=== PATIENT | female | born 1935 | race Caucasian/White ===

== ENCOUNTER 2024-08-18 10:49 | Inpatient (IN) ==
[2024-08-18 11:35] LABS: Basophils # (auto) 0.02 K/uL (0.00-0.20); Basophils % (auto) 0.3 %; Eosinophils # (auto) 0.08 K/uL (0.00-0.50); Eosinophils % (auto) 1.3 %; Hematocrit (blood only) 34.7 % (37.0-47.0); Hemoglobin 10.8 g/dl (12.0-16.0); Immature Granulocytes # (auto) 0.01 K/uL (0.01-0.20); Immature Granulocytes % (auto) 0.2 %; Lymphocytes # (auto) 1.24 K/uL (1.20-3.40); Lymphocytes % (auto) 20.8 %; Mean Corpuscular Hemoglobin 29.7 pg (25.0-34.0); Mean Corpuscular Hgb Conc 31.1 g/dL (32.0-36.0); Mean Corpuscular Volume 95.3 fL (80.0-100.0); Monocytes # (auto) 0.69 K/uL (0.11-0.59); Monocytes % (auto) 11.6 %; Neutrophils # (auto) 3.93 K/uL (1.40-6.50); Neutrophils % (auto) 65.8 %; Platelet Count 127 K/uL (130-400); RDW Coefficient of Variation 14.8 % (11.5-14.5); RDW Standard Deviation 51.9 fL (36.4-46.3); Red Blood Count 3.64 M/uL (4.20-5.40); White Blood Count 5.97 K/ul (4.8-10.8)
[2024-08-18 11:53] LABS: Anion Gap 2 (3-11); BUN Creatinine Ratio 35.9 (10-20); Blood Urea Nitrogen 28 mg/dl (6-23); Calcium 9.5 mg/dl (8.6-10.3); Carbon Dioxide 30 mmol/L (21-32); Chloride 109 mmol/L (98-107); Glucose 79 mg/dl (70-99(Fasting)); Potassium 4.7 mmol/L (3.5-5.1); Sodium 141 mmol/L (136-145)
--- NOTE | 2024-08-18 12:21 | Emergency Department Note ---
Impression & Plan Acute confusion, Anemia, Acute UTI, Pneumonia, Acute dehydration, Rhinovirus infection ED Provider Note NAME: JAIME SCHAFER AGE: 88 SEX: F : 1935 ARRIVES VIA: Walk-In INFORMANT: [Patient][family] ED PROVIDER(S): [Oren London MD] CHIEF COMPLAINT: Weakness HISTORY OF PRESENT ILLNESS: The patient is an 88-year-old female who was on hospice up until yesterday. She revoked hospice yesterday. The patient has had a week of increased confusion and weakness. Today, she could not stand on her own. There has been no fever, she has not had a fall. No cough or congestion. No abdominal pain. No one-sided weakness. The family states that at times, she has presented with similar symptoms when she has had a UTI. PMHx/PSHx/Social Hx: See Below PHYSICAL EXAM: GENERAL: Patient is in no acute distress. HEENT: No acute trauma, normocephalic atraumatic, mucous membranes somewhat dry, no nasal congestion. NECK: No stridor, no adenopathy, no meningismus, trachea is midline. LUNGS: No wheezing or respiratory distress, breath sounds are diminished bilaterally, especially on the left. HEART: Regular rate and rhythm, no obvious murmur. ABDOMEN: Soft, nontender, no peritonitis. EXTREMITIES: No cyanosis, full range of motion of all the joints without pain or difficulty. Mild bilateral pedal edema. NEUROLOGIC: Awake and alert, no acute motor or sensory deficits, no focal weakness. Strong hand grasp, equal leg raise. No speech slur. SKIN: No jaundice, no diaphoresis. DIFFERENTIAL DIAGNOSIS: UTI, TIA, stroke, anemia, electrolyte imbalance, intracranial bleeding, among others. EMERGENCY DEPARTMENT PROCEDURES: MEDICAL DECISION MAKING: There is no leukocytosis. The patient is anemic with a lower platelet count, the anemia and thrombocytopenia are chronic. INR is elevated at 4.2, above the therapeutic window. There is no renal failure or significant electrolyte abnormality. No concerning liver enzyme elevation. ECG shows a ventricular pacemaker, no obvious ischemia. Cardiac enzyme testing x 1 was not consistent with acute cardiac injury. Ammonia level was not elevated. Urinalysis shows 4+ bacteria consistent with infection. Respiratory bio fire was positive for rhinovirus. Chest x-ray shows a left lower lung pneumonia. Brain CT did not show any acute bleed or mass effect. On exam, the patient appeared somewhat dehydrated. There was no speech slur. No focal motor deficit. The patient received IV saline for hydration. She was given IV ceftriaxone for the UTI as well as the findings of pneumonia. Patient is weak, confused, dehydrated. She has a UTI as well as pneumonia. She is rhinovirus positive. Given her age and all her findings, hospitalization is indicated. I spoke with the patient and case consultant. I spoke with her family. The on- call hospitalist was consulted. Prior/Outside records/notes reviewed: None ECG per my interpretation: Indication was weakness. The ECG shows a ventricular pacemaker with a rate of 74. There is no acute ST elevation, no PVCs. The QTc is 463. Continuous Cardiac Monitoring per my interpretation: An order was placed for continuous cardiac monitoring. The monitor shows a rate of 72 with ventricular pacing. Imaging/x-ray results per my interpretation: Chest x-ray shows what appears to be left lower lung pneumonia. Chronic Medical/Social conditions affecting care: Advanced age. Care/Management discussed with: Case management, the on-call hospitalist. 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 Pulmonary HTN (Chronic) Pulmonary HTN (PASP 49mmhg) Anemia (Chronic) chronic; baseline hgb 11's Encounter for pre-operative examination Tachy-nikki syndrome (Acute 06/23/13) Medical History 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 Afib chronic; on warfarin Family History Sister Family history of cancer Grandmother Family history of leukemia Social History Smoking Status: Never smoker Do You Dip or Chew Tobacco: No; Hx Alcohol Use: No Hx Substance Use: No Preferred Language: Indonesian Communication Ability: Effective Wrinkle Chaser Required: No Beliefs That Will Affect Care: None Current Living Situation: Spouse Feels Safe at Home: Yes Assistive Devices: Glasses and Walker Allergies Allergies Allergy/AdvReac Type Severity Reaction Status Date / Time No Known Allergies Allergy Verified 03/11/19 05:34 Home Meds Home Medications Medication Instructions Recorded Confirmed atorvastatin 20 mg tablet 20 mg PO PM 02/03/19 12/26/23 cyanocobalamin (vitamin B-12) 500 500 mcg PO QAM 02/03/19 12/26/23 mcg tablet (Vitamin B-12) ferrous sulfate 325 mg (65 mg 325 mg PO BID 02/03/19 12/26/23 iron) tablet metoprolol succinate 25 mg 25 mg PO QAM 02/03/19 12/26/23 tablet,extended release 24 hr omeprazole 20 mg tablet,delayed 20 mg PO QAM 02/03/19 12/26/23 release spironolactone 25 mg tablet 12.5 mg PO QAM 02/03/19 12/26/23 warfarin 5 mg tablet 2.5 mg PO [id number] 02/03/19 12/26/23 warfarin 5 mg tablet 5 mg PO WK 02/03/19 12/26/23 calcium 500 mg (as 1 tab PO DAILY 03/11/19 12/26/23 carbonate)-vitamin D3 10 mcg (400 unit) tablet (Calcium 500 + D) [id number]-ecqrp acid 0.4 1 tab PO DAILY 03/11/19 12/26/23 mg-lycopene 300 mcg-lutein 250 mcg tablet (Centrum Silver) ropinirole 1 mg tablet 1 mg PO DAILY 12/26/23 12/26/23 sertraline 50 mg tablet 50 mg PO DAILY 12/26/23 12/26/23 Previous Rx's Medication Instructions Recorded oxycodone 5 mg tablet 5 mg PO Q4H PRN pain #30 tabs 03/17/19 Results & Data (ED) Vital Signs Vital Signs - 24 hr 08/18/24 10:50 08/18/24 11:38 Temperature 36.6 C Temperature Source Temporal Artery Scan Pulse Rate 66 64 Respiratory Rate 18 Blood Pressure 143/84 H Blood Pressure Mean 103 Pulse Oximetry 98 Sepsis Recent Fever Within 48 Hours No Sepsis New/Unexplained Change in Mental Status N/A Sepsis Action Taken by Nursing No Action Required Home Medications Current Medication List: was personally reviewed by me Laboratory Data Attestation: I reviewed the patient's lab results. 08/18/24 11:15 08/18/24 11:15 Lab Results 08/18/24 08/18/24 08/18/24 Range/Units 11:15 11:56 12:33 WBC 5.97 (4.8-10.8) K/ul RBC 3.64 L (4.20-5.40) M/uL Hgb 10.8 L (12.0-16.0) g/dl Hct 34.7 L (37.0-47.0) % MCV 95.3 (80.0-100.0) fL MCH 29.7 (25.0-34.0) pg MCHC 31.1 L (32.0-36.0) g/dL RDW Std Deviation 51.9 H (36.4-46.3) fL RDW Coeff of Gladis 14.8 H (11.5-14.5) % Plt Count 127 L (130-400) K/uL MPV 12.0 (9.4-12.4) fL Immature Gran % (Auto) 0.2 % Neut % (Auto) 65.8 % Lymph % (Auto) 20.8 % [place] % (Auto) 11.6 % Eos % (Auto) 1.3 % Baso % (Auto) 0.3 % Neut # (Auto) 3.93 (1.40-6.50) K/uL Lymph # (Auto) 1.24 (1.20-3.40) K/uL [place] # (Auto) 0.69 H (0.11-0.59) K/uL Eos # (Auto) 0.08 (0.00-0.50) K/uL Baso # (Auto) 0.02 (0.00-0.20) K/uL Immature Gran # (Auto) 0.01 (0.01-0.20) K/uL PT 39.8 H (9.0-12.0) Seconds INR 4.2 H (0.9-1.1) APTT 48 H (21-31) Seconds PTT Ratio 1.8 Sodium 141 (136-145) mmol/L Potassium 4.7 (3.5-5.1) mmol/L Chloride 109 H (98-107) mmol/L Carbon Dioxide 30 (21-32) mmol/L Anion Gap 2 L (3-11) BUN 28 H (6-23) mg/dl Creatinine 0.78 (0.6-1.2) mg/dl Est Cr Clr Drug Dosing Not Reportable eGFR 73.47 BUN/Creatinine Ratio 35.9 H (10-20) Glucose 79 (70-99(Fasting)) mg/dl Calcium 9.5 (8.6-10.3) mg/dl Magnesium 2.2 (1.7-2.4) mg/dl Total Bilirubin 0.4 (0.2-1.0) mg/dl Direct Bilirubin 0.1 (0-0.2) mg/dl AST 27 (13-39) U/L ALT 20 (7-52) U/L Alkaline Phosphatase 78 (34-104) U/L Ammonia 27.0 (18-72) umol/L Troponin I High Sens 10.3 (0-14) pg/ml Total Protein 6.9 (6.0-8.3) gm/dl Albumin 4.1 (3.4-5.0) gm/dl Urine Color Yellow Urine Appearance Clear (Clear) Urine pH 5.5 (4.5-7.5) Ur Specific [place] 1.022 (1.000-1.030) Urine Protein Negative (Negative) Urine Glucose (UA) Negative (Negative) Urine Ketones Negative (Negative) Urine Blood Trace H (Negative) Urine Nitrite Negative (Negative) Urine Bilirubin Negative (Negative) Urine Urobilinogen Negative (Negative) Ur Leukocyte Esterase Negative (Negative) Urine WBC (Auto) 0-5 (0-5) /hpf Urine RBC (Auto) 3-5 H (0-2) /hpf U Hyaline Cast (Auto) 0-2 (0-2) /lpf U Epithel Cells (Auto) 0-2 (0-2) /hpf Urine Bacteria (Auto) 4+ H (None Seen) Adenovirus (PCR) (NotDetected) B. pertussis DNA (PCR) (NotDetected) B.parapertussis DNA PCR (NotDetected) C. pneumoniae DNA (PCR) (NotDetected) Coronavirus OC43 (PCR) (NotDetected) Coronavirus HKU1 (PCR) (NotDetected) Coronavirus 229E (PCR) (NotDetected) SARS-CoV-2 (PCR) (NotDetected) Coronavirus NL63 (PCR) (NotDetected) Human Metapneumovir PCR (NotDetected) Influenza Type A (PCR) (NotDetected) Influenza Type B (PCR) (NotDetected) M. pneumoniae (PCR) (NotDetected) Parainfluenza 1 (PCR) (NotDetected) Parainfluenza 2 (PCR) (NotDetected) Parainfluenza 3 (PCR) (NotDetected) Parainfluenza 4 (PCR) (NotDetected) RSV (PCR) (NotDetected) Entero/Rhino (PCR) (NotDetected) 08/18/24 Range/Units 12:35 WBC (4.8-10.8) K/ul RBC (4.20-5.40) M/uL Hgb (12.0-16.0) g/dl Hct (37.0-47.0) % MCV (80.0-100.0) fL MCH (25.0-34.0) pg MCHC (32.0-36.0) g/dL RDW Std Deviation (36.4-46.3) fL RDW Coeff of Gladis (11.5-14.5) % Plt Count (130-400) K/uL MPV (9.4-12.4) fL Immature Gran % (Auto) % Neut % (Auto) % Lymph % (Auto) % [place] % (Auto) % Eos % (Auto) % Baso % (Auto) % Neut # (Auto) (1.40-6.50) K/uL Lymph # (Auto) (1.20-3.40) K/uL [place] # (Auto) (0.11-0.59) K/uL Eos # (Auto) (0.00-0.50) K/uL Baso # (Auto) (0.00-0.20) K/uL Immature Gran # (Auto) (0.01-0.20) K/uL PT (9.0-12.0) Seconds INR (0.9-1.1) APTT (21-31) Seconds PTT Ratio Sodium (136-145) mmol/L Potassium (3.5-5.1) mmol/L Chloride (98-107) mmol/L Carbon Dioxide (21-32) mmol/L Anion Gap (3-11) BUN (6-23) mg/dl Creatinine (0.6-1.2) mg/dl Est Cr Clr Drug Dosing eGFR BUN/Creatinine Ratio (10-20) Glucose (70-99(Fasting)) mg/dl Calcium (8.6-10.3) mg/dl Magnesium (1.7-2.4) mg/dl Total Bilirubin (0.2-1.0) mg/dl Direct Bilirubin (0-0.2) mg/dl AST (13-39) U/L ALT (7-52) U/L Alkaline Phosphatase (34-104) U/L Ammonia (18-72) umol/L Troponin I High Sens (0-14) pg/ml Total Protein (6.0-8.3) gm/dl Albumin (3.4-5.0) gm/dl Urine Color Urine Appearance (Clear) Urine pH (4.5-7.5) Ur Specific [place] (1.000-1.030) Urine Protein (Negative) Urine Glucose (UA) (Negative) Urine Ketones (Negative) Urine Blood (Negative) Urine Nitrite (Negative) Urine Bilirubin (Negative) Urine Urobilinogen (Negative) Ur Leukocyte Esterase (Negative) Urine WBC (Auto) (0-5) /hpf Urine RBC (Auto) (0-2) /hpf U Hyaline Cast (Auto) (0-2) /lpf U Epithel Cells (Auto) (0-2) /hpf Urine Bacteria (Auto) (None Seen) Adenovirus (PCR) Not Detected (NotDetected) B. pertussis DNA (PCR) Not Detected (NotDetected) B.parapertussis DNA PCR Not Detected (NotDetected) C. pneumoniae DNA (PCR) Not Detected (NotDetected) Coronavirus OC43 (PCR) Not Detected (NotDetected) Coronavirus HKU1 (PCR) Not Detected (NotDetected) Coronavirus 229E (PCR) Not Detected (NotDetected) SARS-CoV-2 (PCR) Not Detected (NotDetected) Coronavirus NL63 (PCR) Not Detected (NotDetected) Human Metapneumovir PCR Not Detected (NotDetected) Influenza Type A (PCR) Not Detected (NotDetected) Influenza Type B (PCR) Not Detected (NotDetected) M. pneumoniae (PCR) Not Detected (NotDetected) Parainfluenza 1 (PCR) Not Detected (NotDetected) Parainfluenza 2 (PCR) Not Detected (NotDetected) Parainfluenza 3 (PCR) Not Detected (NotDetected) Parainfluenza 4 (PCR) Not Detected (NotDetected) RSV (PCR) Not Detected (NotDetected) Entero/Rhino (PCR) DETECTED A (NotDetected) Administered Medications Discontinued Medications Ceftriaxone Sodium (Rocephin) 2,000 mg in 50 mls @ 100 mls/hr IV NOW STA Stop: 08/18/24 12:54 Last Infusion: 08/18/24 14:02 Dose: Infused Documented By: Admin: 08/18/24 13:29 Dose: 100 mls/hr Documented By: ELIJAH Sodium Chloride (Nss) 1,000 mls @ 999 mls/hr IV .[id number] ONE Stop: 08/18/24 14:27 Last Admin: 08/18/24 13:30 Dose: 999 mls/hr Documented By: NRB Imaging Data Radiologist's Impression: Chest X-Ray 08/18/24 11:54 XR chest 1V portable CLINICAL HISTORY: weak COMPARISON STUDY: Chest radiograph February 10, 2019. FINDINGS: Left subclavian pacer lead is coiled. Moderate cardiomegaly is unchanged. There is pulmonary vascular congestion without overt pulmonary edema. 2.5 cm left lower lung retrocardiac opacity is present. There is no pneumothorax or pleural effusion. Lung volumes are mildly diminished. IMPRESSION: 1. Cardiomegaly with pulmonary vascular congestion. 2. 2.5 cm left lower lung retrocardiac opacity. This could represent atelectasis or a small focus of pneumonia. PA and lateral chest radiographs in one month are recommended to ensure resolution and exclude the possibility of a pulmonary nodule. ACT 112: Negative or not required by law. Electronically signed by: Shukri Manuel M.D. 08/18/2024 1:[address] 08/18/24 11:54 CT head/brain wo con CLINICAL HISTORY: 88 years-old Female with confusion. Acutely altered mental status TECHNIQUE: Multiple axial CT images of the head were obtained without contrast. A dose lowering technique was utilized adhering to the principles of ALARA. CT DOSE: 547.75 mGy.cm COMPARISON: None. FINDINGS: No acute intracranial hemorrhage, midline shift, intracranial mass, hydrocephalus, territorial ischemia or abnormal extra-axial collection. Involutional changes with white matter hyperintensities suggestive of chronic microvascular ischemic disease. The calvarium is intact. The paranasal sinuses, mastoid air cells, and middle ear cavities are clear. IMPRESSION: No acute intracranial abnormality. ACT 112: Negative or not required by law. The above report was generated using voice recognition software. It may contain grammatical, syntax or spelling errors. Electronically signed by: Christ Carrillo M.D. 08/18/2024 12:30 PM Discharge Plan Visit Data Chief Complaint: Weakness Stated Complaint: WEAKNESS, FATIGUE ED Provider: Oren London Discharge Problem: Acute confusion, Anemia, Acute UTI, Pneumonia, Acute dehydration, Rhinovirus infection Patient Disposition: Admitted As Inpatient Condition: Fair Forms Stand Alone Forms: [facility] Prescriptions Prescriptions: No Action ropinirole 1 mg tablet 1 mg PO DAILY sertraline 50 mg tablet 50 mg PO DAILY atorvastatin 20 mg Tablet 20 mg PO PM spironolactone 25 mg Tablet 12.5 mg PO QAM cyanocobalamin (vitamin B-12) [Vitamin B-12] 500 mcg Tablet 500 mcg PO QAM ferrous sulfate 325 mg (65 mg iron) Tablet 325 mg PO BID Patient Comments: take before meals warfarin 5 mg Tablet 2.5 mg PO [id number] Patient Comments: saturday take 5 mg all other days half of - take after supper warfarin 5 mg Tablet 5 mg PO WK Patient Comments: mondays omeprazole 20 mg Tablet,Delayed Release (Dr/Ec) 20 mg PO QAM metoprolol succinate 25 mg Tablet Extended Release 24 Hr 25 mg PO QAM Centrum Silver 0.4-300-250 mg-mcg-mcg Tablet 1 tab PO DAILY calcium carbonate-vitamin D3 [Calcium 500 + D] 500 mg(1,250mg) -400 unit Tablet 1 tab PO DAILY oxycodone 5 mg Tablet 5 mg PO Q4H PRN (Reason: pain) Qty: 30 0RF Referrals Referrals: Christina Smith MD [Outside Practitioners] - Discharge Problem: Anemia Qualifiers: Anemia type: unspecified type Qualified Code(s): D64.9 - Anemia, unspecified Pneumonia Qualifiers: Pneumonia type: due to unspecified organism Laterality: left Lung location: l ower lobe of lung Qualified Code(s): J18.9 - Pneumonia, unspecified organism
[2024-08-18 12:23] LABS: Appearance Urine Clear (Clear); Bacteria Urine Automated 4+ (None Seen); Bilirubin Urine Negative (Negative); Blood Urine Trace (Negative); Cast Urine Automated 0-2 /lpf (0-2); Color Urine Yellow; Epithelial Cell Urine Auto 0-2 /hpf (0-2); Glucose Urine UA Negative (Negative); Ketones Urine Negative (Negative); Leukocyte Esterase Urine Negative (Negative); Nitrite Urine Negative (Negative); Protein Urine Negative (Negative); Specific Gravity Urine 1.022 (1.000-1.030); Urobilinogen Urine Negative (Negative); WBC Urine Automated 0-5 /hpf (0-5); pH Urine 5.5 (4.5-7.5)
--- NOTE | 2024-08-18 12:31 | CT Scan Report ---
CT head/brain wo con CLINICAL HISTORY: 88 years-old Female with confusion. Acutely altered mental status TECHNIQUE: Multiple axial CT images of the head were obtained without contrast. A dose lowering tech nique was utilized adhering to the principles of ALARA. CT DOSE: 547.75 mGy.cm COMPARISON: None. FINDINGS: No acute intracranial hemorrhage, midline shift, intracranial mass, hydrocephalus, territorial ischem ia or abnormal extra-axial collection. Involutional changes with white matter hyperintensities sugges tive of chronic microvascular ischemic disease. The calvarium is intact. The paranasal sinuses, mastoid air cells, and middle ear cavities are clear . IMPRESSION: No acute intracranial abnormality. ACT 112: Negative or not required by law. The above report was generated using voice recognition software. It may contain grammatical, syntax o r spelling errors. Electronically signed by: Christ Carrillo M.D. 08/18/2024 12:30 PM
[2024-08-18 12:46] LABS: Alanine Aminotransferase 20 U/L (7-52); Albumin Level 4.1 gm/dl (3.4-5.0); Alkaline Phosphatase 78 U/L (34-104); Aspartate Aminotransferase 27 U/L (13-39); Bilirubin Direct 0.1 mg/dl (0-0.2); Bilirubin,Total 0.4 mg/dl (0.2-1.0); INR 4.2 (0.9-1.1); Magnesium 2.2 mg/dl (1.7-2.4); Partial Thromboplastin Ratio 1.8; Partial Thromboplastin Time 48 Seconds (21-31); Prothrombin Time 39.8 Seconds (9.0-12.0); Total Protein 6.9 gm/dl (6.0-8.3)
[2024-08-18 12:52] LABS: Troponin I High Sensitivity 10.3 pg/ml (0-14)
--- NOTE | 2024-08-18 13:12 | XRay Report ---
XR chest 1V portable CLINICAL HISTORY: weak COMPARISON STUDY: Chest radiograph February 10, 2019. FINDINGS: Left subclavian pacer lead is coiled. Moderate cardiomegaly is unchanged. There is pulmonar y vascular congestion without overt pulmonary edema. 2.5 cm left lower lung retrocardiac opacity is p resent. There is no pneumothorax or pleural effusion. Lung volumes are mildly diminished. IMPRESSION: 1. Cardiomegaly with pulmonary vascular congestion. 2. 2.5 cm left lower lung retrocardiac opacity. This could represent atelectasis or a small focus of pneumonia. PA and lateral chest radiographs in one month are recommended to ensure resolution and exc lude the possibility of a pulmonary nodule. ACT 112: Negative or not required by law. Electronically signed by: Shukri Manuel M.D. 08/18/2024 1:11 PM
[2024-08-18] MEDS: cefTRIAXone SODIUM 2,000 MG/50 ML BAG IV STA (13:29)
[2024-08-18] MEDS: SODIUM CHLORIDE 0.9% 1,000 ML IV ONE (13:30)
[2024-08-18 13:37] LABS: Adenovirus PCR Not Detected (NotDetected); Bordetella parapertussis PCR Not Detected (NotDetected); Bordetella pertussis PCR Not Detected (NotDetected); Chlamydia pneumoniae PCR Not Detected (NotDetected); Coronavirus 229E PCR Not Detected (NotDetected); Coronavirus CoV-2 (COVID19)PCR Not Detected (NotDetected); Coronavirus HKU1 PCR Not Detected (NotDetected); Coronavirus NL63 PCR Not Detected (NotDetected); Coronavirus OC43PCR Not Detected (NotDetected); Human Metapneumovirus PCR Not Detected (NotDetected); Influenza A PCR Not Detected (NotDetected); Influenza B PCR Not Detected (NotDetected); Mycoplasma pneumoniae PCR Not Detected (NotDetected); Parainfluenza Virus 1 PCR Not Detected (NotDetected); Parainfluenza Virus 2 PCR Not Detected (NotDetected); Parainfluenza Virus 3 PCR Not Detected (NotDetected); Parainfluenza Virus 4 PCR Not Detected (NotDetected); Respiratory Syncytial VirusPCR Not Detected (NotDetected); Rhinovirus/Enterovirus PCR DETECTED (NotDetected)
--- NOTE | 2024-08-18 15:17 | History & Physical Report ---
Date of Service August 18, 2024 Assessment & Plan (1) Acute metabolic encephalopathy: (2) Pneumonia: (3) Acute UTI: (4) Rhinovirus infection: (5) Ambulatory dysfunction: (6) Tachy-nikki syndrome: (7) Afib: (8) (HFpEF) heart failure with preserved ejection fraction: (9) DM II (diabetes mellitus, type II), controlled: Plan This is an 88-year-old female with PMH of atrial fibrillation on coumadin, tachybradycardia syndrome s/p pacemaker, labile HTN, type 2 diabetes, history of IPMN, HFpEF (EF:59% 2019), atherosclerosis of aorta, ambulatory dysfunction and other medical problems listed below who presents from home with worsening weakness and was found to have possible UTI, LLL PNA and rhino/enterovirus. Acute metabolic encephalopathy In setting of acute infection CT head without acute intracranial abnormalities Expect improvement with abx Acute UTI Abnormal UA with 4+ bacteria Continue empiric Rocephin Follow urine cultures Community-acquired pneumonia Enterovirus, rhinovirus on respiratory viral panel Chest x-ray with pulmonary vascular congestion, 2.5 cm left lower lung retrocardiac opacity which could represent small focus of pneumonia Per radiology, recommend PA and lateral chest radiographs in 1 month to ensure resolution and exclude possibility of pulmonary nodule Procalcitonin pending Continue Rocephin as above, doxycycline Incentive spirometry Dysphagia Mentioned by patient, family - worse in past week GI, speech consulted Aspiration precautions Ambulatory dysfunction Ambulates with walker at baseline but has been profoundly weak Fall precautions PT/OT evaluation Atrial fibrillation Continue Toprol INR supratherapeutic at 4-hold today's dose of Coumadin Recheck INR in the morning HFpEF EF:59% 2019 CXR with pulm vascular congestion but appears dry on exam Continue Toprol, spironolactone, PRN lasix at home Given 1L NSS in ED Hold off on further fluids, obtain BNP Reassess volume statum in AM Type 2 diabetes Hemoglobin A1c 5.6 in April Diet controlled SSI while inpatient BSG ACHS Goals of care - formerly on hospice for a few months now hospice status revoked Per discussion with patient (who currently has decision making capacity) and son/POAsad Griffith at baseline, seems goals and parameters of hospice were not well understood a few months ago and patient revoked status yesterday. Desires treatment with antibiotics and IV fluids. Would not want to pursue a feeding tube should that ever be recommended. Confirmed with patient and son at bedside patient desires to be a FULL CODE. DVT Ppx: holding coumadin with supratherapeutic INR Code status: FULL PCP: [place] Dispo: admitted to med/surg Patient seen in collaboration with Dr. Ortega. Please see addendum. I spent a total of 75 minutes coordinating, documenting, and providing care for this patient excluding time spent in the performance of separately billed services. Alondra (daughter): [phone] - will try to reach again Nacho (son): [phone] History of Present Illness Chief Complaint: Weakness Primary Care Provider: Amor Pate MD This is an 88-year-old female with PMH of atrial fibrillation on coumadin, tachybradycardia syndrome s/p pacemaker, labile HTN, type 2 diabetes, history of IPMN, HFpEF (EF:59% 2020), atherosclerosis of aorta, ambulatory dysfunction and other medical problems listed below who presents from home with worsening weakness. Patent lives at home with 24 hour caregivers. Has been on hospice for the last few months but family has been dissatisfied with her care and did not understand she would not be getting treatment or labs or regularly seeing a doctor while on hospice. Was seen by heme/onc provider yesterday, Dr. Monk, and due to AMS over the past few days, along with weakness encouraged family to come to ED for further evaluation. Revoked hospice status yesterday. Patient is A&Ox3 during interview and states DOES want to receive treatment in the hospital and clarified she does not want to be on hospice any longer. Wants to try PT/OT to get stronger again. History primarily obtained from son Nacho at bedside as well as patient. She has been weaker for the past 3 days and unable to get up today even with help. Also endorses dysuria. Son adds that she has been having intermittent visual hallucinations over the past few days but wonders if that is because she isn't sleeping well. At baseline patient transfers with help of aide and ambulates with a walker. Unsure of all medi cations but knows she is taking coumadin, metoprolol, pantoprazole and lasix PRN for leg swelling. No F/C, lightheadedness, CP, SOB, N/V, abd pain, diarrhea or constipation. Allergies Allergy/AdvReac Type Severity Reaction Status Date / Time No Known Allergies Allergy Verified 08/18/24 18:24 Home Medications Medication Instructions Recorded Confirmed Type metoprolol succinate 25 mg 12.5 mg PO QAM 02/03/19 08/18/24 History tablet,extended release 24 hr omeprazole 20 mg tablet,delayed 20 mg PO QAM 02/03/19 08/18/24 History release spironolactone 25 mg tablet 25 mg PO 3XWK 02/03/19 08/18/24 History sertraline 50 mg tablet 50 mg PO QAM 12/26/23 08/18/24 History acetaminophen 325 mg tablet 650 mg PO Q6H PRN Pain/Fever 08/18/24 08/18/24 History furosemide 20 mg tablet 20 mg PO DAILY PRN Edema 08/18/24 08/18/24 History ropinirole 0.25 mg tablet 0.25 mg PO TID 08/18/24 08/19/24 History sennosides 8.6 mg tablet 8.6 mg PO DAILY PRN Constipation 08/18/24 08/18/24 History warfarin 2 mg tablet 2 mg PO TUWETHSA@1600 08/18/24 08/18/24 History warfarin 4 mg tablet 4 mg PO MOFR@1600 08/18/24 08/18/24 History calcium 600 mg (as 1 cap PO DAILY 08/19/24 08/19/24 History carbonate)-vitamin D3 10 mcg (400 unit) capsule cholecalciferol (vitamin D3) 25 25 mcg PO DAILY 08/19/24 08/19/24 History mcg (1,000 unit) capsule (Vitamin D3) cyanocobalamin (vitamin B-12) 500 500 mcg PO 2XWK 08/19/24 08/19/24 History mcg tablet folic acid 800 mcg tablet 0.8 mg PO DAILY 08/19/24 08/19/24 History multivitamin 1 tab PO DAILY 08/19/24 08/19/24 History tramadol 50 mg tablet 50 mg PO Q6H PRN Pain, Severe 08/19/24 08/19/24 History Past Med/Surg History Problem List (Updated 08/25/24 @ 12:05 by Melody Reyes PA-C) Mild dehydration Decreased urine output Left lower lobe pneumonia Dysphagia Ambulatory dysfunction Acute metabolic encephalopathy Rhinovirus infection (Acute) Pneumonia (Acute) Acute UTI (Acute) Anemia (Acute) Gait disorder S/P total knee arthroplasty Pacemaker (Chronic) [employer] implanted 2012; 2/2 chronic a. 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 Pulmonary HTN (Chronic) Pulmonary HTN (PASP 49mmhg) Anemia (Chronic) chronic; baseline hgb 11's Encounter for pre-operative examination Tachy-nikki syndrome (Acute 06/23/13) Medical History (Updated 08/25/24 @ 12:05 by Melody Reyse PA-C) DM II (diabetes mellitus, type II), controlled (HFpEF) heart failure with preserved ejection fraction 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 Afib chronic; on warfarin Surgical History Cataract Family History Sister Family history of cancer Grandmother Family history of leukemia Social History Smoking Status: Never smoker Second Hand Exposure: No; Do You Dip or Chew Tobacco: No; Hx Alcohol Use: No Hx Substance Use: No Preferred Language: Maltese Communication Ability: Effective Grout Pump Operator Required: No Beliefs That Will Affect Care: None Current Living Situation: Spouse Other Information That Helps Us Care for You: No Feels Safe at Home: Yes Safety Concerns: Feels Safe At This Time Assistive Devices: Glasses, Stair Lift, Walker and Wheelchair Review of Systems Review of Systems: At least ten systems reviewed and negative except as noted in the HPI. Physical Exam Physical Exam: General Appearance: WD/WN, vitals as above, NAD, sitting up in bed, pleasant, appears ill Head: normocephalic, atraumatic Eyes: normal inspection, PERRL, conjunctivae normal, anicteric sclerae ENT: external ear and nose normal, oropharynx with dry mucous membranes Neck: normal visual inspection Respiratory: normal respiratory effort, bibasilar rales L>R Cardiovascular: regular rate, rhythm, normal peripheral pulses, 1+ BLE edema Chest: normal inspection of chest Abdomen/GI: normal bowel sounds, soft, nontender, no hepatosplenomegaly Extremities/Musculoskeletal: no cyanosis or clubbing, extremities motor strength 5/5, scattered ecchymosis Neurologic: PERRL, EOMI, accommodation nl, no face palsy, no dysarthria, CN's II-XI intact bilaterally and moves all extremities Psychiatric: A+Ox3 Skin: no rashes, normal color, warm/dry Results & Data Results & Data Vital Signs (Past 12 Hours) Vital Signs Temp Pulse Resp BP Pulse Ox 08/18/24 15:00 62 16 143/83 H 95 08/18/24 14:30 60 16 144/75 H 96 08/18/24 13:33 61 15 157/89 H 97 08/18/24 13:01 161/93 H 08/18/24 12:30 138/93 08/18/24 12:00 82 13 129/90 97 08/18/24 11:38 64 08/18/24 11:33 63 23 125/72 98 08/18/24 10:50 36.6 C 66 18 143/84 H 98 Laboratory Results Short CBC 08/18/24 Range/Units 11:15 WBC 5.97 (4.8-10.8) K/ul Hgb 10.8 L (12.0-16.0) g/dl Hct 34.7 L (37.0-47.0) % Plt Count 127 L (130-400) K/uL BMP 08/18/24 11:15 Sodium 141 Potassium 4.7 Chloride 109 H Carbon Dioxide 30 BUN 28 H Creatinine 0.78 Glucose 79 Calcium 9.5 Liver Function 08/18/24 Range/Units 11:15 Total Bilirubin 0.4 (0.2-1.0) mg/dl Direct Bilirubin 0.1 (0-0.2) mg/dl AST 27 (13-39) U/L ALT 20 (7-52) U/L Alkaline Phosphatase 78 (34-104) U/L Albumin 4.1 (3.4-5.0) gm/dl Urine 08/18/24 Range/Units 11:56 Urine Color Yellow Urine Appearance Clear (Clear) Urine pH 5.5 (4.5-7.5) Ur Specific [place] 1.022 (1.000-1.030) Urine Protein Negative (Negative) Urine Glucose (UA) Negative (Negative) Diagnostic Findings Chest X-Ray 08/18/24 11:54 XR chest 1V portable CLINICAL HISTORY: weak COMPARISON STUDY: Chest radiograph February 10, 2019. FINDINGS: Left subclavian pacer lead is coiled. Moderate cardiomegaly is unchanged. There is pulmonary vascular congestion without overt pulmonary edema. 2.5 cm left lower lung retrocardiac opacity is present. There is no pneumothorax or pleural effusion. Lung volumes are mildly diminished. IMPRESSION: 1. Cardiomegaly with pulmonary vascular congestion. 2. 2.5 cm left lower lung retrocardiac opacity. This could represent atelectasis or a small focus of pneumonia. PA and lateral chest radiographs in one month are recommended to ensure resolution and exclude the possibility of a pulmonary nodule. ACT 112: Negative or not required by law. Electronically signed by: Shukri Manuel M.D. 08/18/2024 1:[address] 08/18/24 11:54 CT head/brain wo con CLINICAL HISTORY: 88 years-old Female with confusion. Acutely altered mental status TECHNIQUE: Multiple axial CT images of the head were obtained without contrast. A dose lowering technique was utilized adhering to the principles of ALARA. CT DOSE: 547.75 mGy.cm COMPARISON: None. FINDINGS: No acute intracranial hemorrhage, midline shift, intracranial mass, hydrocephalus, territorial ischemia or abnormal extra-axial collection. Involutional changes with white matter hyperintensities suggestive of chronic microvascular ischemic disease. The calvarium is intact. The paranasal sinuses, mastoid air cells, and middle ear cavities are clear. IMPRESSION: No acute intracranial abnormality. ACT 112: Negative or not required by law. The above report was generated using voice recognition software. It may contain grammatical, syntax or spelling errors. Electronically signed by: Christ Carrillo M.D. 08/18/2024 12:30 PM Knee X-Ray 08/18/24 15:42 XR knee LT 1 or 2V routine HISTORY: 88 years-old Female pain, r/o fracture acute pain of the left knee status post trauma COMPARISON: None TECHNIQUE: 2 views of the left knee FINDINGS: Arterial calcifications. Partially imaged intramedullary gal of the distal femur. Tricompartment osteoarthritis of the knee, moderate in the medial patellofemoral compartments and severe within the lateral compartment. Intramedial soft tissue swelling with small joint effusion. IMPRESSION: No acute fracture or dislocation. ACT 112: Negative or not required by law. The above report was generated using voice recognition software. It may contain grammatical, syntax or spelling errors. Electronically signed by: Christ Carrillo M.D. 08/18/2024 4:00 PM ECG Additional Comments: The ECG shows a ventricular pacemaker with a rate of 74. There is no acute ST elevation, no PVCs. The QTc is 463. Supervising Physician Co-Signing Physician Notes delayed entry date of service noted above Attending Addendum: Case reviewed with the advanced practitioner. I have personally performed a history and physical examination on the patient. I have reviewed the advanced practitioner's documentation on the date of service referenced in note, and I agree with, and take responsibility for the plan of care. please refer to her notes for full details patient seen and examined, records reviewed by myself as well no other symptoms diagnoses and plan of care as per advanced practitioner's notes Cristiano Ortega MD (2) Pneumonia Laterality: left Lung location: lower lobe of lung Pneumonia type: due to unspecified organism Qualified Code(s): J18.9 - Pneumonia, unspecified organism
--- NOTE | 2024-08-18 16:01 | XRay Report ---
XR knee LT 1 or 2V routine HISTORY: 88 years-old Female pain, r/o fracture acute pain of the left knee status post trauma COMPARISON: None TECHNIQUE: 2 views of the left knee FINDINGS: Arterial calcifications. Partially imaged intramedullary gal of the distal femur. Tricompartment oste oarthritis of the knee, moderate in the medial patellofemoral compartments and severe within the late ral compartment. Intramedial soft tissue swelling with small joint effusion. IMPRESSION: No acute fracture or dislocation. ACT 112: Negative or not required by law. The above report was generated using voice recognition software. It may contain grammatical, syntax o r spelling errors. Electronically signed by: Christ Carrillo M.D. 08/18/2024 4:00 PM
--- OUTSIDE RECORDS SUMMARY | 2024-08-18 16:08 | External Medical Summary | Summary of Care ---
Author Name Unknown Organization [facility] Address [address] [place] [address] Phone [phone] Care Team Providers Care Labor Relations Or Personnel Negotiator Name Role Phone Amor Pate MD Primary Care Provider [phone] Reason for Visit * Reason Onset Date Comments Advice 08/13/2024 Encounter Details Date Type Department Care Team (Late st Contact Info) Description 08/13/2024 Telephone [facility] [address] [place] [address] Amor Pate MD [address] [place] [address] Advice Allergies No known active allergiesdocumented as of this encounter (statuses as of 08/17/2024) Medications Sennosides 8.6 MG Oral Tablet (Senokot) Take 2 Tablets by mouth daily as needed for Constipation. 30 Tablet 3 Active Additional Information Patient taking differently:2 Tablet Oral DAILY PRN, Constipation,Pt taking 1 every evening and additional 1 if needed, Reported on 06/12/2024 Ferrous Sulfate 325 (65 Fe) MG Oral Tablet (Feosol)Indicatio ns:Other iron deficiency anemias Take 1 tab Saturday and only. 8 Tablet 3 Active Acetaminophen 325 MG Oral Tablet (Tylenol) Take 2 Tablets by mouth every 6 hours. 30 Tablet 3 Active Vitamin D (Cholecalciferol) 25 MCG (1000 UT) Oral Capsule Take 1 Capsule by mouth in the morning. 30 Capsule 3 Active Multivitamin Adults Oral Tablet Take 1 Tablet by mouth in the morning. 30 Tablet 3 Active Lutein 6 MG Oral Capsule Take 1 Capsule by mouth in the morning. 30 Capsule 3 Active DIURETIC TITRATION PLAN If no improvement on day 3, contact heart failure managing provider. 1 Each 3 Active Vitamin B-12 500 MCG Oral Tablet (vitamin B-12) Take one tab twice a week 26 Tablet 3 Active Biotin 1000 MCG Oral TabletIndications :Routine gynecological examination Take 1 Tablet by mouth in the morning. 30 Tablet 3 Active Calcium-Magnesium -Vitamin D ER 600-40-500 MG-MG-UNIT Tablet Extended Release 24 HourIndications:V itamin D deficiency,Osteop enia one daily (may use otc ) 30 Tablet 3 Active Folic Acid 0.8 MG Oral Capsule Take 1 Tablet by mouth in the morning. Active Metoprolol Succinate ER 25 MG Oral Tablet Extended Release 24 Hour (toPROL XL) Take 0.5 Tablets by mouth in the morning. 45 Tablet 3 4 Active Nystatin 598751 UNIT/GM External CreamIndications: Candidal intertrigo Apply topically to affected area 2 times a day. To affacted area for two weeks. 15 g 2 4 Active Omeprazole 20 MG Oral Capsule Delayed Release (PriLOSEC)Indicat ions:GERD (gastroesophageal reflux disease) Take 1 capsule by mouth in the morning 90 Capsule 4 Active Spironolactone 25 MG Oral Tablet (Aldactone)Indica tions:Tachy-nikki syndrome (HCC),HTN, goal below 140/90 Take 1 Tablet by mouth once a day on Saturday, Saturday, and Saturday only. 40 Tablet 3 4 Active Warfarin Sodium 2 MG Oral Tablet (Coumadin) TAKE 1 TO 2 TABLETS BY MOUTH IN THE EVENING DIRECTED BY COUMADIN CLINIC 90 Tablet 1 4 Active Sodium Hyaluronate 60 MG/3ML Intra-articular Prefilled Syringe (Durolane) Inject contents of prefilled syringe into the left knee joint once. 3 mL 05/12/2024 5:06 PM EDT 4 Active rOPINIRole HCl 0.25 MG Oral Tablet (Requip)Indicatio ns:Tremors of nervous system TAKE 1 TABLET BY MOUTH IN THE MORNING AND 1 IN THE EVENING 180 Tablet 4 Active Sertraline HCl 50 MG Oral Tablet (Zoloft)Indicatio ns:Anxiety about health TAKE 1 TABLET BY MOUTH IN THE MORNING 30 Tablet 5 4 Active Furosemide 20 MG Oral Tablet (Lasix) Take 1 tablet by mouth once daily 30 Tablet 4 Active documented as of this encounter (statuses as of 08/17/2024) Active Problems Problem Noted Date Diagnosed Date Pressure injury of left buttock, stage 2 Assessment & Plan (06/10/2024 12:29 PM EST): Patient is using Optifoam to area. Again discussed importance of offloading pressure and repositioning. She does not want to go the wound clinic. RN to continue to monitor we will keep visits as scheduled. Assessment & Plan (05/20/2024 10:15 AM EDT): Improved. Caregivers are applying duoderm or similar. Again discussed importance of offloading pressure. DM peripheral angiopathy 04/01/2024 Ambulatory dysfunction 01/04/2024 Assessment & Plan (01/04/2024 11:12 AM EDT): Home PT continues to work with pt. Denies any falls. Using walker with ambulation Recurrent cystitis 01/04/2024 Assessment & Plan (01/04/2024 11:13 AM EDT): Currently on bactrim for UTI. CHW will give specimen cups to collect urine in event of future symptoms. Pulmonary hypertension, unspecified 11/28/2023 Assessment & Plan (11/28/2023 11:39 AM EDT): Continue diuretic Pressure injury of buttock, stage 3 11/28/2023 Assessment & Plan (11/28/2023 11:41 AM EDT): See photo. Advised importance of offloading pressure--she is sitting in recliner all day and night. Recommended hospital bed and she refuses at this time. Home health to monitor, caregivers are currently applying desitin Type 2 diabetes mellitus wit h diabetic chronic kidney disease 08/12/2023 Non-healing ulcer of buttock, limited to breakdo wn of skin 08/12/2023 Assessment & Plan (08/12/2023 8:04 PM EST): Continue barrier cream Keep area clean and dry Type 2 diabetes mellitus wit h hemoglobin A1c goal of less than 7.0% 03/18/2023 Assessment & Plan (04/01/2024 4:48 PM EDT): "RED FLAG" Diabetic symptoms: Generalized Weakness Goal HgbA1c <8 Diabetic Complications Vascular (examples: PVD, PAD, CAD, CVA) Renal (example: CKD, Proteinuria, Dialysis) Medication Regimen Lifestyle Modification / Monitoring ONLY DM Secondary Prevention Moderate-High Intensity Statin Additional Comments Last hemoglobin A1c from July was 5.5. She is due for lab recheck-ordered via mobile Tricuspid valve insufficiency 03/04/2023 Pulmonary valve insufficiency 03/04/2023 Hiatal hernia 03/04/2023 Hepatic cyst 03/04/2023 Diverticulosis of large intestine without hemorr dot 03/04/2023 DDD (degenerative disc disease), lumbar 03/04/20 23 Atherosclerosis of aorta 03/04/2023 Internal hemorrhoids 03/04/2023 Cerebral atrophy 03/04/2023 Assessment & Plan (11/28/2023 11:34 AM EDT): Present on brain imaging reviewed in the medical records. Explained that this is a common finding depending on age and other medical conditions but can contribute to things like memory loss and coordination issues. Assessment & Plan (08/12/2023 8:03 PM EST): Per CT scan Other iron deficiency anemias 02/12/2023 Nontoxic single thyroid nodule 12/04/2022 Overview (11/28/2023): Chest CT 10/26/22: IMPRESSION IMPRESSION: 1. No acute findings. 2. Cardiomegaly. 3. Small sliding hiatal hernia. 4. 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 Directed palpation and clinical correlation recommended. 5. Multiple fractures of the left posterior 2nd through 7th ribs, probably chronic. Directed palpation and clinical correlation recommended. . 6. Eight mm low-density lesion of the thyroid.No follow-up is recommended. Assessment & Plan (11/28/2023 11:38 AM EDT): Noted on recent CT--8mm and no further follow up recommended Assessment & Plan (12/04/2022 2:28 PM EDT): Noted on recent CT--8mm and no further follow up recommended Venous insufficiency 12/08/2021 Assessment & Plan (12/08/2021 5:28 PM EDT): Suspect this is source of leg edema. Advised use of compression hose, on in am and off pm. 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 3a chronic kidney disease 11/23/2021 Assessment & Plan (04/01/2024 4:49 PM EDT): "RED FLAG" HF Symptoms: Leg Swelling (Examples: "I can't wear certain socks or shoes", "My pants feel tight") Medication Regimen: Beta Tika Therapy: Metoprolol Succinate (ER) JACOB Inhibitor/ARB Therapy: No JACOB/ARB/ARNI secondary to: was stopped in past d/t hypotension/syncope Diuretic therapy: Lasix Aldactone SGLT2 Inhibitor: No Current SGLT2 (Describe in the Comments) Remote Patient Monitoring Vendor: No Connected RPM Device(s): Not a Candidate for RPM (Describe in Comments) Self - Management Plan Other/Additional Comments: Take furosemide 20mg daily. Now only using prn Exacerbation Plan Chest X-Ray Additional Comments: Euvolemic today. Unsteady and high fall risk and would not recommend daily wt at this time Assessment & Plan (11/28/2023 11:38 AM EDT): "RED FLAG" HF Symptoms: Leg Swelling (Examples: "I can't wear certain socks or shoes", "My pants feel tight") Medication Regimen: Beta Tika Therapy: Metoprolol Succinate (ER) JACOB Inhibitor/ARB Therapy: No JACOB/ARB/ARNI secondary to: was stopped in past d/t hypotension/syncope Diuretic therapy: Lasix Aldactone SGLT2 Inhibitor: No Current SGLT2 (Describe in the Comments) Remote Patient Monitoring Vendor: No Connected RPM Device(s): Not a Candidate for RPM (Describe in Comments) Self - Management Plan Other/Additional Comments: Take furosemide 20mg daily. Now only using prn Exacerbation Plan Chest X-Ray Additional Comments: Euvolemic today. Unsteady and high fall risk and would not recommend daily wt at this time Assessment & Plan (08/12/2023 8:02 PM EST): "RED FLAG" HF Symptoms: Leg Swelling (Examples: "I can't wear certain socks or shoes", "My pants feel tight") Increased dyspnea on exertion (Example: "I can't walk to the kitchen or up the stairs") Medication Regimen: Beta Tika Therapy: Metoprolol Succinate (ER) JACOB Inhibitor/ARB Therapy: No JACOB/ARB/ARNI secondary to: unknown Diuretic therapy: Lasix Aldactone SGLT2 Inhibitor: No Current SGLT2 (Describe in the Comments) Remote Patient Monitoring Vendor: No Connected RPM Device(s): No current devices Self - Management Plan Double dose of Furosemide for 3 days Exacerbation Plan BMP Chest X-Ray Additional Comments: Increased edema today, will take lasix and continue to monitor Assessment & Plan (12/04/2022 2:32 PM EDT): "RED FLAG" HF Symptoms: o Leg Swelling (Examples: "I can't wear certain socks or shoes", "My pants feel tight") Medication Regimen: o Beta Tika Therapy: Metoprolol Succinate (ER) o JACOB Inhibitor/ARB Therapy: No JACOB/ARB/ARNI o Diuretic therapy: Lasix Aldactone Self - Management Plan o Double dose of Furosemide for 3 days Exacerbation Plan o BMP o Pro-BNP Additional Comments: o stable Cyst of spleen 11/23/2021 Age-related osteoporosis wit hout current pathological fracture 07/18/2021 Assessment & Plan (11/28/2023 11:33 AM EDT): DEXA done in Apr. On prolia Gastroesophageal reflux disease without esophagi tis 08/04/2020 Assessment & Plan (12/04/2022 2:27 PM EDT): Stable on omeprazole Neuropathy, lumbosacral (radicular) 07/13/2020 IPMN (intraductal papillary mucinous neoplasm) 0 02/03/2019 Overview (01/07/2020): 01/07/2020 endo ultrasound stable x1 yr. No FNA plan CT 6 mths Fu by GI Assessment & Plan (11/28/2023 11:38 AM EDT): Followed by GI Primary osteoarthritis of both hips 01/12/2019 Overview (01/12/2019): 05/2017 X ray 1. Moderate osteoarthrosis left hip. 2. Mild osteoarthrosis right hip. Atherosclerosis of both carotid arteries 019 Overview (02/03/2019): 06/2018 bilateral <50% (echogenic plaques) Superficial varicosities 08/15/2018 Osteoarthritis of both knees 05/29/2018 Overview (05/29/2018): 05/29/2018 ref to ortho for viscosupp R knee Chronic atrial fibrillation, unspecified 018 Assessment & Plan (04/01/2024 4:50 PM EDT): Rate controlled Continue coumadin per MTM Assessment & Plan (08/12/2023 8:03 PM EST): Rate controlled Continue coumadin per MTM Hearing loss of right ear 09/24/2017 Overview (09/24/2017): Cont fu with [facility] Chronic midline low back pain without sciatica 0 04/24/2017 Overview (04/24/2017): 04/24/2017 ref to pt See 04/17/17 Hammer toe of right foot 02/13/2017 Overview (02/13/2017): 02/13/2017 Ref to pod History of iron deficiency anemia 10/03/2016 Assessment & Plan (11/28/2023 11:38 AM EDT): Followed by hematology Hgb stable 10.1 Varicose vein of leg 02/01/2016 Pancreatic cyst 12/16/2015 Overview (12/08/2018): 12/08/2018 repeat done /aspiration results pending (also esoph christiano ? Await culture 09/11/[address] indicated that 1 of the cyst has grown slightly in size.Dr Elena plans on repeat endoscopic ultrasound in the next 4-6 months . 02/13/[address] suggested 03/13/[address] and EUS surveillance of her cysts. , see her after the next due CT (June). At that time we will arrange a f/u EUS for December 2016. Based on 12/12/2015 EUS/pat, per Dr Elena, pt will need follow-up CT of the abdomen in 6 months followed by a repeat endoscopic ultrasound in 1 year 12/12/15 EGD Impression: - Small hiatus hernia. - Normal stomach. - Normal duodenal bulb and 2nd part of the duodenum. - No specimens collected. Recommendation: - Perform an upper endoscopic ultrasound (UEUS) today EUS Impression: - There was no sign of significant pathology in the ampulla. - Evidence of a cholecystectomy. - There was no sign of significant pathology in the common bile duct. - Endosonographic images of the left adrenal gland were unremarkable. - A cystic lesion was seen in the pancreatic head. The diagnosis is an intraductal papillary mucinous neoplasm. Fine needle aspiration for fluid performed. - A cystic lesion was seen in the pancreatic body. Tissue has not been obtained. However, the endosonographic appearance is consistent with an intraductal papillary mucinous neoplasm. - A cystic lesion was seen in the pancreatic tail. Tissue has not been obtained. However, the endosonographic appearance is consistent with an intraductal papillary mucinous neoplasm. Recommendation: - Discharge patient to home (ambulatory). - Advance diet as tolerated today. - Cipro (ciprofloxacin) 500 mg PO BID for 3 days. - Perform CT scan (computed tomography) of the abdomen with contrast in 6 months. A. Head of pancreas, cyst fine needle aspiration: Cyst contents only. A few macrophages with a single cluster of ductal epithelium (most probably GI contamination), compatible with cyst contents. No diagnostic evidence of mucin or high grade dysplasia. Hypocellular specimen. Cellblock: The cellblock preparation is hypocellular. Clinical History 24 mm multicystic lesion of the pancreas CEA, FLUID 00707.0 ng/mL Final COMMENT Final The reference range and other method performance specifications have not been established for this body fluid. The test result must be integrated into the clinical context for interpretation. AMYLASE, FLUID 188 U/L Final AMYLASE FL SOURCE PANCREATIC Final Comment: CYST COMMENT Final The reference range and other method performance specifications have not been established for this body fluid. The test result must be integrated into the clinical context for interpretation. Assessment & Plan (12/04/2022 2:28 PM EDT): Followed by GI AK (actinic keratosis) 12/01/2014 Acquired cyst of kidney 04/20/2014 Overview (04/20/2014): 04/20/2014 Bilateral renal cysts with probable right complex cyst Rpt 6 months. Cardiac pacemaker in situ 11/18/2013 Overview (08/23/2023): [employer] [id number] Mitral valve regurgitation 10/12/2013 Tachy-nikki syndrome 06/18/2013 Assessment & Plan (12/08/2021 5:25 PM EDT): S/p pacemaker salvage determiner current use of anticoagulant therapy 0 08/28/2010 History of vitamin D deficiency 03/09/2010 Overview (08/26/2015): Resolved 2009 Advance directive discussed with patient 005 Overview (10/03/2016): 10/03/2016 forgot to bring 10/03/2016 Discussed advance directive and living will . Pt wants to think about but for now would be the first contact (son and daughter have legal POA ) Given brochure 08/12/2015 Discussed advance directive and living will . Pt reports she has LW and will and will bring the document to be scanned Given brochure The patient does not have a Power of Fitter Mechanic or Advanced Directives in place at this time. Dyslipidemia, goal LDL below 70 08/23/2003 Overview (03/11/2013): LDL (CALCULATED)(mg/dL) Rd Dt/Tm Resulted Value Status 03/07/13 9:10A 03/07/13 152* satisfactory no evid of sign atherosclerosis LDL (CALCULATED)(mg/dL) Rd Dt/Tm Resulted Value Status 09/14/10 9:35A 09/14/10 128 FINAL Lipid Panel Results: LDL (CALCULATED) (mg/dL) 12/07/03 9:45A 12/07/03 131* Final Assessment & Plan (12/04/2022 2:26 PM EDT): LDL at goal on atorvastatin Incipient senile cataract documented as of this encounter (statuses as of 08/17/2024) Resolved Problems Problem Noted Date Diagnosed Date Resolved Date Blister of right foot 01/04/20242023 Assessment & Plan (01/04/2024 11:11 AM EDT): Unclear etiology but does not appear to be on area of direct pressure. No infection, advised to leave blister intact. Continue to monitor, can apply protective dressing. Acute cystitis without hematuria 07/13/2023 11/28/2023 Complicated UTI (urinary tract infection) 07/08/2023 08/13/2023 Supratherapeutic INR 07/08/2023 024 Confusion 07/08/2023 02/04/2024 Generalized weakness 07/08/2023 Assessment & Plan (11/28/2023 11:43 AM EDT): She has generalized weakness, some days worse than others since she has been discharged home. Patient/daughter reports him physical therapy and occupational therapy have not started yet. Phone call recommended by intake staff to follow up with [facility] how quickly they are going to start. Home therapy as essential at this time. Family is paying for 25/02 caregivers, although having some issues with no showing of caregivers for shifts Using walker for ambulation. Ulcer of right foot 07/08/2023 11/28/19 Urinary hesitancy 04/01/2023 11/28/2023 Malnutrition of moderate degree 03/04/2023 11/28/2023 Solar purpura 12/04/2022 08/12/2023 Assessment & Plan (12/04/2022 2:32 PM EDT): Noted by derm in the past and per note pt reassured benign Wound of left leg, subsequent encounter 11/03/2022 11/28/2023 Assessment & Plan (01/18/2023 5:10 PM EDT): Followed by wound clinic Wrap intact to leg Assessment & Plan (12/04/2022 4:34 PM EDT): Sees wound clinic this week. Cellulitis of left lower extremity 11/03/2022 04/01/2023 Assessment & Plan (12/04/2022 10:54 AM EDT): PCP gave keflex yesteday Has home health SN Seeing wound clinic this week. Pain of right lower leg 11/03/2022 07/3 08/2022 Chronic diastolic (congestive) heart failure 11/28/2023 Assessment & Plan (12/08/2021 5:26 PM EDT): Euvolemic today. Continue lasix 20mg daily History of fracture of left hip 07/18/2021 03/04/2023 Pressure injury of right buttock, stage 2 07/18/2021 11/23/2021 Protein-calorie malnutrition 07/18/2021 11/23/2021 Postoperative anemia due to acute blood loss 1 12/08/2021 Closed fracture of left hip 01/19/2021 08/06/2021 Fall 01/19/2021 12/08/2021 Pulmonary hypertension, unspecified 11/08/2020 08/06/2021 Stage 3a chronic kidney disease 06/13/2020 11/28/2023 Overview: Per CKD protocol - Per CKD protocol Elective replacement indicated for pacemaker 0 02/04/2024 Tachy-nikki syndrome 06/09/2020 022 Kidney disease, chronic, sta ge III (GFR 30-59 ml/min) 02/15/2020 06/16/2020 Overview: Per CKD protocol Encounter for long-term (cur rent) use of medications 10/12/2019 11/23/2021 Hypernatremia 06/09/2019 10/12/2019 Overview (06/09/2019): 06/09/2019 Mild Admits does not drink much fluid estimates 24 oz a day total Admits eating out and occasionally eating canned foods Will obtain repeat with urinary sodium and osmolality on 06/29 Decubitus ulcer of sacral region, stage 2 03/31/2019 06/09/2019 Overview (06/09/2019): 06/09/2019 resolved Gastro-esophageal reflux dis ease without esophagitis 03/17/2019 08/13/2023 Takes iron supplements 02/03/201904/01 Overview (11/08/2020): 11/08/2020 will reduce to 3/week Coronary artery calcificatio n seen on CAT scan 09/12/2018 12/04/2022 Unequal blood pressure in upper extremities 06/12/2018 02/03/2019 Overview (02/03/2019): 02/03/2019 On follow up measurements incl today blood pressure has been equal Raynaud's phenomenon without gangrene 06/11/2018 06/12/2018 Overview (06/11/2018): 06/11/2018 see ph re Amlo , try Felodipine 2.5 Atrial fibrillation, chronic 03/24/2018 08/13/2023 Assessment & Plan (12/04/2022 9:48 AM EDT): Rate controlled on metoprolol Warfarin stroke prophylaxis Assessment & Plan (12/08/2021 5:24 PM EDT): Rate controlled on metoprolol Warfarin stroke prophylaxis Solar purpura 03/24/2018 12/22/2018 Acquired absence of other right toe(s) 03/24/2018 11/08/2020 Aortic calcification 09/24/2017 024 Overview (01/18/2023): CT pancreas 08/20/22: VESSELS: Calcified and noncalcified plaque throughout the abdominal aorta and its major branches. Assessment & Plan (01/18/2023 5:08 PM EDT): Aortic Atherosclerosis noted on prior imaging. Continue with treatment including Blood pressure control Lipid control Laceration of right lower leg 08/20/2017 01/27/2018 Overview (08/20/2017): 08/20/2017 sugg wound clinic by pain clinic provider Elevated sedimentation rate 06/10/2017 11/28/2023 Pain in both feet 02/13/2017 12/18/2018 Overview (02/13/2017): 02/13/2017 Ref to pod Paresthesia of foot, bilateral 10/03/2016 03/04/2023 Overview (06/10/2017): 06/10/2017 mild now off G. 10/03/2016 try Gabapentin 100 qhs History of hydronephrosis 02/01/2016 Hydronephrosis determined by ultrasound 11/01/2015 12/24/2018 Overview (11/01/2015): 11/01/2015 see letter: renal ultrasound revealed new mild right-sided hydronephrosis (dilation of the kidney). Urology consultation is recommended. Other findings were: Stable bilateral renal cysts, and postvoid bladder volume is 57 mL.(`2 ou) My nurse will help you make arrangements for the urology visit. Knee pain, right 08/12/2015 12/12/2016 Seborrheic keratosis 12/01/2014 017 Encounter for screening mamm ogram for breast cancer 11/12/2013 11/23/2021 Overview (07/13/2020): 07/13/2020 Mammogram was rescheduled to September 2020 due to pacemaker replacement 12/07/2014 6 mths again 03/15/2014 will get follow up in May 2014 11/12/2013 diagn needed-> 6 mths RIGHT BREAST: Findings are probably benign. A short interval follow-up is recommended in 6 months Dyslipidemia, goal LDL below 130 09/11/2013 04/15/2017 Subungual hematoma of foot 09/11/2012 0 04/27/2016 Urgency of urination 11/09/2011 013 Overview (03/11/2013): 03/11/2013 no recc 03/11/2012 was due to UTI and resolved HTN, goal below 140/90 06/12/201108/12 First degree atrioventricular block 09/14/2010 02/04/2024 Encounter for screening mamm ogram for breast cancer 09/14/2010 12/12/2016 ATRIAL FIBRILLATION new onse t noted 08/28/10 rel to syncope 08/28/2010 02/03/2019 Overview (03/11/2012): 03/11/2012 reg 06/12/2011 reg with occ extras 08/28/2010 new onset noted 08/28/10 rel to syncope Stress testing was nonischemic in November 2010 though with equivocal EKG response. Anticoagulation management encounter 08/28/2010 12/18/2018 Special screening for malign ant neoplasms, colon 07/18/2006 11/23/2021 Overview (11/21/2017): 12/27/2016 Impression: - The examined portion of the ileum was normal. - Internal hemorrhoids. - The examination was otherwise normal. - No specimens collected. Recommendation: - Discharge patient to home (ambulatory). - Advance diet as tolerated today. - Repeat colonoscopy is not recommended for screening purposes. Colonoscopy done by on 08-26-06 found normal colon to cecum--f/u in 10 years LOSS OF WEIGHT resolved 03/05/200512/03 Overview (08/27/2007): 08/27/2007 stable 07/18/2006 stable Congratulated on [place] diet 03/05/2005 -28 lb Macrocytic anemia 03/05/2005 02/04/2024 Overview (10/12/2019): Hemoglobin Results: HGB(g/dL) Rd Dt/Tm Resulted Value Status 06/29/19 2:26P 06/29/19 10.5* FINAL 06/29/19 2:25P 06/29/19 10.5* FINAL 04/07/19 11:21A 04/07/19 9.8* FINAL HGB(g/dL) Rd Dt/Tm Resulted Value Status 03/03/10 8:10A 03/03/10 11.9* nl iron B12 08/31/09 9:48A 08/31/09 11.7* FINAL 01/27/08 10:01A 01/27/08 12.5 FINAL 03/05/05 12.7 08/29/01 12.4 04/08/98 12.5 03/06/2005 cbc b12 ,folate nl 11/2004 during screening - 10.9 mcv 92 (uses no etoh) Assessment & Plan (01/18/2023 5:09 PM EDT): Followed by hematology--next appt in Mar. Will get updated labs to ensure stability Per hematology--anemia of chronic disease, possible MDS Assessment & Plan (12/08/2021 5:27 PM EDT): Followed by hematology Osteopenia 12/15/2003 02/04/2024 Overview (04/24/2021): 04/20/2021 DEXA scan suggests high risk for fracture (has had recent fracture ) . has been on Fosamax for many years in the past. I suggest to wait to discuss with Dr. Stroud next month. 12/2018 DEXA The fracture risk is LOW/MODERATE (does not meet NOF criteria for treatment) 11/22/2013 DEXA revealed the following : 1 Fracture risk is LOW/MODERATE (does not meet NOF criteria for treatment). 2. The quality of the examination is good. 3. Compared to a previous study done on November 16, 2011, there has been a significant increase of 4.7% at the left hip. We will repeat the test in 5 years 11/09/2011 DEXA stable Discussed will cont off Fosa repeat in 2-3 yrs eg 11/201304/02/2011 see pt inquiry - will hold Fosa and recheck DEXA in a year or so 11/10/2009 present treatment with Alendronate along with calcium and Vitamin D has increased again the bone mineral density. 10/16/2007 Compared to a study done December 14, 2004, there has been a significant increase of 5.8% at the total hip. Will cont Fosamax, calcium and Vitamin D and rechk 3 years. 07/18/2006 continues F. OK on Actonel but chg to Fosa due to cost 12/15/2003 BACKACHE NOS rt lower back w ith rad mid thigh - resolved with weight reduction 08/23/2003 019 Overview (07/18/2006): 07/18/2006 no sxs (since lost weight) PAROXYSMAL ATRIAL TACHYCARDIA no sxs 08/200907/17/2002 12/12/2016 Overview (07/18/2006): 07/18/2006 no sxs Chest pain, non-cardiac 07/17/200212/03 Overview (07/18/2006): 07/18/2006 no sxs PALPITATIONS resolved 06/01/20022018 Overview (08/31/2008): 08/31/2008 no sxs History of hematuria 023 Overview (11/21/2017): 11/21/2017 resolved 06/10/2017 still intermittent symptoms 10/15/2014 ultrasound cyst is smaller and less complex 04/20/2014 Bilateral renal cysts with probable right complex cyst. Recommend follow-up ultrasound in 6 months. 2. Right renal sinus cysts. No shadowing calculi. 07/18/2006 08/27/[address] 11/04 Blepharitis 12/08/2021 documented as of this encounter (statuses as of 08/17/2024) Immunizations Name Administration Dates Next Due COVID-19 mRNA, LNP-s, No Pre serve, 2-Dose Series (Pfizer) 10/26/2020,09/30/2020 Pneumococcal Conjugate Vacc, 13 Valent (Prevnar) 02/01/2016 Pneumococcal Polysaccharide PPV23 (Pneumovax) 10/27/2002 Seasonal Influenza Vac., MDV , IM, 0.5 mL (Fluzone) 04/26/2014,04/23/2013,04/24/2012,04/25,04/25/2010,05/24/2009,05/25/2008 ,05/07/2007,06/22/2006,07/04/2005,05/06,06/01/2002 Seasonal Influenza, High Dos e, Trivalent, PF, IM (Fluzone HD) 05/05/2024 Seasonal Influenza, PF, 6 M & above, IM , (FluLaval or Fluzone) 05/10/2020,05/26/2019,05/19/2018,04/24 Seasonal Influenza, Quadriva lent Hd (Fluzone Hd) 04/29/2023,05/28/2022,05/18/2021 Seasonal Influenza, Quadriva lent, No Preserve, IM 05/30/2016,05/30/2015 TD - Tetanus/Diptheria (ADULT) 08/22/1992 TD, Preservative Free 07/04/2005 TDAP (age 10 and older)(Boostrix) 10/03/2012 Varicella Zoster Vaccine (Adult) 10/29/2011 documented as of this encounter Social History Tobacco Use Types Packs/Day Years Used Date Smoking Tobacco: Never Smokeless Tobacco: Never Alcohol Use Standard Drinks/Week Comments No 0 (1 standard drink = 0.6 oz pur e alcohol) PHQ-2 Answer Date Recorded PHQ Adult Total Score 0 02/04/2024 Hunger Vital Sign Answer Date Recorded Within the past 12 months, y ou worried that your food would run out before you got the money to buy more. Never true 06/09/20 24 Within the past 12 months, t he food you bought just didn't last and you didn't have money to get more. Never true 06/09/2024 Childcare Answer Date Recorded Do you feel overwhelmed with taking care of a child, family member or friend? No 06/09/2024 Does your family need help f inding childcare? (Household - for ages 0-17 years) Not on file 06/09/2024 Clothing Answer Date Recorded Have you been unable to get clothing when it was really needed? No 06/09/2024 Is your family able to get c lothes or diapers when needed? (Household - for ages 0-17 years) Not on file 06/09/2024 Personal Safety Answer Date Recorded Do you feel unsafe or have concerns for your saf ety? No 06/09/2024 Do you have concerns for you r family's safety? (Household - for ages 0-17 years) Not on file 06/09/2024 Utilities Answer Date Recorded Do you have trouble paying y our heating, water, or electric bill? No 06/09/2024 Is your family able to pay t he heat, water, or electric bill? (Household - for ages 0-17 years) Not on file 06/09/2024 Does your family have access to good internet? (Household - for ages 0-17 years) Not on file 06/09/2024 Employment Status Answer Date Recorded Are you unemployed or without regular income? No 06/09/2024 Does the household have a re gular source of income? (Household - for ages 0-17 years) Not on file 06/09/2024 Social Connections Answer Date Recorded How often do you feel lonely or isolated from th ose around you? Never 06/09/2024 Financial Resource Strain Answer Date R ecorded Do you have any trouble payi ng for your medications, or do you think you might in the future? No 06/09/2024 Does your family have troubl e paying for medicine? (Household - for ages 0-17 years) Not on file 06/09/2024 Transportation Needs Answer Date Record ed READ ONLY Do you have troubl e getting a ride to medical visits or work? Never True 06/09/2024 Does your family have a hard time getting a ride to doctors visits? (Household - for ages 0-17 years) Not on file 06/09/2024 Has lack of transportation k ept you from medical appointments, meetings, work, or from getting things needed for daily living? Check all that apply. No 06/09/2024 Do you (or your family) have trouble finding or paying for a ride (transportation)? (Household - for ages 0-17 years) Not on file 06/09/2024 Housing Stability Answer Date Recorded Do you currently live in a s helter or have no steady place to sleep at night? No 06/09/2024 READ ONLY Do you think you a re at risk of becoming homeless? No 06/09/2024 Does your family worry about paying for your home or becoming homeless? (Household - for ages 0-17 years) Not on file 1 08/09/2023 Are you homeless or worried that you might be in the future? No 06/09/2024 Are you (or your family) jun eless or worried that you might be in the future? (Household - for ages 0-17 years) Not on file Food Insecurity Answer Date Recorded Do you need food for this week? No 06/09/2024 Are you able to get enough f ood for your family? (Household - for ages 0-17 years) Not on file 06/09/2024 Does your family need food t his week? (Household - for ages 0-17 years) Not on file 06/09/2024 Do you always have enough fo od for your family? (Household - for ages 0-17 years) Not on file 06/09/2024 Comments No Sex and Gender Information Value Date Recorded Sex Assigned at Female 12/22/2018 8:13 AM EDT Legal Sex Female 7:04 AM EST Gender Identity Female 12/22/2018 8:13 AM EDT Sexual Orientation Straight 12/22/2018 8: 13 AM EDT documented as of this encounter Functional Status * Are you deaf or do you have serious difficulty hearing? Answer Date of Assessment Author No 08/21/2023 3:15 AM Mikki Gann RN * Are you blind or do you have serious difficulty seeing, even when wearing glasses? Answer Date of Assessment Author No 08/21/2023 3:15 AM Mikki Gann RN * Do you have serious difficulty walking or climbing stairs? (5 years old or older) Answer Date of Assessment Author Yes 08/22/2023 4:29 PM Dee Dee Ren RN * Do you have difficulty dressing or bathing? (5 years old or older) Answer Date of Assessment Author Yes 08/21/2023 3:15 AM Mikki Gann RN * Because of a physical, mental, or emotional condition, do you have difficulty doing errands alone such as visiting a doctors office or shopping? (15 years old or older) Answer Date of Assessment Author No 08/21/2023 3:15 AM Mikki Gann RN documented as of this encounter Mental Status * Because of a physical, mental, or emotional condition, do you have serious difficulty concentrating, remembering, or making decisions? (5 years old or older) Answer Entry Date Author No 08/21/2023 3:15 AM Mikki Gann RN documented in this encounter Miscellaneous Notes * Telephone Encounter - Amor Pate MD - 08/17/2024 12:17 PM EST Being seen today by heme/onc * Telephone Encounter - Allison Wilder MED ASSIST - 08/13/2024 11:46 AM EST Spoke to Cody and he states she was having trouble making to the bathroom on Saturday and Saturday but no problem today. He asked pt and she denies any back pain, flank, pain, fever, pressure or burning with urination. He states she was still hallucinating this morning. Although since he got herup and dressed and fed her she is much better today. He states he is very pleased with how she is today. He states he would not be able to get her for out for an appt. He states she has trouble with steps out front due to being weak. They can no longer use [facility]. He states he is glad to hear from you since he left a message last night for [facility] and has heard from them. * Telephone Encounter - Amor Pate MD - 08/13/2024 10:57 AM EST Please schedule acute visit today. Ask for any urinary symptoms Thanks! Amor Pate MD, [place] Family Physician [facility] [place] * Telephone Encounter - Blank Paige LPN - 08/13/2024 8:31 AM EST Pt's son Nacho is calling. States that the pt's Cody called him yesterday and told him that the pt was seeing people. Nacho spoke with the pt and evaluated the situation over the phone and the pt did tell him that there was 2-3 other people there with her. Pt told him that she was sitting in her kitchen chair in the living room beside her lift reclining chair because "someone else is sitting in her reclining chair". Prior, pt thought there was a child climbing up her lap and thought she saw a doll in the corner that was not there. Nacho waited a couple of hours, called the pt back and had a normal conversation with the pt but was still seeing the people that were not there. Pt did report to Nacho that she has not slept for the last 3 nights but does not feel tired. States that he does not trust the aids helping the pt and they are the ones handling the pt's medications. Also does not trust hospice because when they first started seeing the pt, the just started canceling things like lab orders and cardiology. Made Nacho aware that pt needs to be seen. States that the pt is not able to get around well- is not able to get to a vehicle from her home. Cars will not bring the pt. Has used [facility] in the past but pt would be hesitant using their transportation in fear that she would not come back home. Is concerned that pt may have a UTI or possibly be dehydrated. Is asking if something could be set up where someone goes to her house to evaluate the pt? Asks that he is called back at [phone]. States that the pt does not know that he called. Please advise. * Telephone Encounter - Kim Yoder OSA - 08/13/2024 8:24 AM EST Reason for patient's call: pt's son has some concerns with pt possibly having hallucinations. Stated she seems okay while speaking with her and not noticed other symptoms Caller was transferred to [facility] at the nurse line. documented in this encounter Plan of Treatment Upcoming Encounters Date Type Department Care Team (Late st Contact Info) Description 08/17/2024 4:30 PM EST Telemedicine Hematology Oncology, [place] [address] [facility] [address] Billy Basurto MD [address] [place] [address] [place] [phone] 08/18/2024 8:00 AM EST Laboratory Lab Mobile Phlebotomy [place] [address] [address] [place] [address] [facility], [facility] Mobile Home Draw [address] [place] [address] 08/18/2024 3:30 PM EST Office Visit Otolaryngology, [place] [address] [place] [address] Hema Hercules PA-C [address] [place] [address] 08/20/2024 8:00 AM EST Laboratory Lab Mobile Phlebotomy [facility] [address] [place] [address] [facility], [facility] Mobile Home Draw [address] [place] [address] 08/21/2024 6:00 AM EST Anticoagulation [facility], Derrek Denton [address] [place] [address] [place]baum [address] [facility], [address] [place] Schmidt [address] 08/25/2024 8:10 AM EST Laboratory Lab Mobile Phlebotomy [facility] [address] [address] [facility], [facility] Mobile Home Draw [address] [place] [address] 08/26/2024 5:40 PM EST Office Visit Family [facility], [place] [address] [place] [address] [phone] Amor Pate MD [address] [place] [address] [address] 09/01/2024 8:00 AM EST Laboratory Lab Mobile Phlebotomy [facility] [address] [place] [address] Gl, Gml Mobile Home Draw [address] [place] [address] 09/08/2024 8:00 AM EST Laboratory Lab Mobile Phlebotomy [place] [address] [place] [address] Gl, Gml Mobile Home Draw [address] [place] [address] 09/10/2024 12:50 PM EST Office Visit Dermatology, [place] [address] [place] [address] Marilyn Ozuna PA-C [address] [place] [address] 09/15/2024 8:00 AM EST Laboratory Lab Mobile Phlebotomy [facility] [address] [place] [address] [facility], [facility] Mobile Home Draw [address] [place] [address] 09/17/2024 11:00 AM EST Laboratory Laboratory, [place] [address] [facility] [place] [phone] [facility] [address] [facility] [place] [address] 09/22/2024 8:00 AM EST Laboratory Lab Mobile Phlebotomy [place] [address] [place] [address] Gl, Gml Mobile Home Draw [address] [place] [address] 09/29/2024 8:00 AM EST Laboratory Lab Mobile Phlebotomy GL [address] [place] [address] Gl, Gml Mobile Home Draw [address] [place] [address] 10/06/2024 8:00 AM EST Laboratory Lab Mobile Phlebotomy [facility] [address] [place] [address] Gl, Gm Mobile Home Draw [address] [place] [address] 10/13/2024 8:00 AM EDT Laboratory Lab Mobile Phlebotomy [facility] [address] [place] [address] Gl, Gm Mobile Home Draw [address] [place] [address] 10/20/2024 8:00 AM EDT Laboratory Lab Mobile Phlebotomy [facility] [address] [place] [address] [facility], [facility] Mobile Home Draw [address] [place] [address] 10/27/2024 8:00 AM EDT Laboratory Lab Mobile Phlebotomy [facility] [address] [place] [address] [facility], [facility] Mobile Home Draw [address] [place] [address] 11/03/2024 8:00 AM EDT Laboratory Lab Mobile Phlebotomy [facility] [address] [place] [address] Gl, Gm Mobile Home Draw [address] [address] 11/03/2024 12:30 PM EDT Office Visit Gastroenterology, [facility] [address] [facility] [place] [phone] Gisel Patel CRNP [address] [place] [address] 11/03/2024 3:00 PM EDT Office Visit Cardiology, [place] 400 [facility] [place], [place] [address] Stephanie Ramos PA-Dana [address] [place] [address] 11/10/2024 8:00 AM EDT Laboratory Lab Mobile Phlebotomy [facility] 400 [facility] [place] [address] [facility], [place] Mobile [facility] Draw [address] [facility] [place] [address] 11/16/2024 1:00 PM EDT Office Visit Podiatry, [facility] 400 [place] [address] Sydney Castelan, DPM 400 [facility], [place] [address] 11/17/2024 8:00 AM EDT Laboratory Lab Mobile Phlebotomy [facility] 400 [facility] [place] [address] [facility], [facility] Mobile Home Draw 400 [facility], [place] [address] 11/24/2024 8:00 AM EDT Laboratory Lab Mobile Phlebotomy [facility] [address] [place] [address] Gl, Gml Mobile Home Draw 400 [facility] [address] 12/01/2024 8:00 AM EDT Laboratory Lab Mobile Phlebotomy [facility] 400 [facility] [place] [address] Gl, Gml Mobile Home Draw 400 [place] [address] 12/07/2024 1:30 PM EDT Nurse Only Rheumatology, [address] [address] [place], Nurse Rheumatology [address] [place] [address] 12/31/2024 1:00 PM EDT Cardiac Studies Cardiology, [address] [address] [place] [facility] [address] [place] [address] 02/04/2025 12:00 PM EDT Home Visit Care at Home [address] [place] [address] Carol Mathew PA-C [address] [place] [address] 06/14/2025 2:00 PM EST Office Visit Rheumatology, [address] [address] Monster Jackman, [place]ure[place] [address] [place] [address] Scheduled Procedures Name Priority Associated Diagnoses Date/Ti me ESOPHAGOGASTRODUODENOSCOPY ( EGD), FLEXIBLE, TRANSORAL, ENDOSCOPIC ULTRASOUND Recall Pancreatic cyst Health Maintenance Due Date Last Done Comments Diabetic Foot Exam 1953 Zoster Vaccines (2 of 3) 12/24/2011 10/29/2011 DTap/Tdap Vaccines (2 - Td or Tdap) 10/03/2022 10/03/2012, 07/04/2005, 08/22/1992 COVID-19 Vaccine (3 - season) 2024 10/26/2020, 09/30/2020 Diabetic Eye Exam 06/19/2024 06/19/2023, , 01/12/2019, Additional history exists CKD PHOS USE SMARTSET 34701 08/22/202408/05, 08/20/2023, 11/07/2022, Additional history exists HbA1c 10/14/2024 04/16/2024, 1212/2022, 04/01/2023 Albumin/Creatinine Ratio 12/05/2024 12/06/2023, 03/06 Adult Wellness Visit 02/03/2025 02/04/2024, 02/29/20 23 Depression Screening 02/03/2025 02/04/2024, 12/10/19 24 DXA Scan 04/22/2025 04/22/2023, 04/05, 12/25/2018, Additional history exists CKD HGB USE SMARTSET 92548 05/06/202505/06, 05/06/2024, 03/02/2024, Additional history exists Pneumococcal Vaccine: 50+ Years Completed 02/01/2016, 10/27/2002 VITAMIN D LEVEL ONCE IN A LIFETIME-USE SMARTSET# [id number] Completed 04/16/2024, 09/16/2023, 10/20/2019, Additional history exists Influenza Vaccine (FLU shot) Completed 08/2023, 04/29/2023, 05/28/2022, Additional history exists HPV (Gardasil) Vaccine Aged Out No lo nger eligible based on patient's age to complete this topic Hepatitis B Vaccine Aged Out No longe r eligible based on patient's age to complete this topic MENINGOCOCCAL (MENACTRA/MENVEO) Aged Out No longer eligible based on patient's age to complete this topic documented as of this encounter Medical Devices Implanted Type Area Service Consultant Device Identifier Shelf Expiration Date Model / Serial / Lot Implant System, Trim-It Drill Pin [id number]" X 4" Implanted:Qty: 1 on 10/10/2017 by Sydney Castelan DPM at OR [facility] Right: Toe 04/04/2019 [id number] / / [id number] Medtronic Attesta Surescan Pacemaker Implanted:Qty: 1 on 06/09/2020 by Chanel Lin DO at OR [facility] Left: Chest 08/01/2021 [id number] / [id number] / Nail [id number] Left [id number] - [id number] Implanted:Qty: 1 on 01/20/2021 by Alli Townsend MD at OR [facility] Left: Hip MILAN : TRAUMA 12/03/2023 3525-034 [id number] / / [id number] Screw Lag 10.5x95mm - [id number] Implanted:Qty: 1 on 01/20/2021 by Alli Townsend MD at OR [facility] Left: Hip MILAN : TRAUMA 11/02/2025 [id number] / / [id number] Screw T2 Alpha Lock 5x47.5mm - [id number] Implanted:Qty: 1 on 01/20/2021 by Alli Townsend MD at OR [facility] Left: Hip MILAN : TRAUMA 05/04/2029 [id number] / / [id number] documented as of this encounter Advance Directives Documents on File Type Date Recorded Patient Data Solutions Architect Expl anation POLST 07/15/2023 [place] [facility] FOR LIFE-SUSTAINING TREATMENT * Full Code (Latest Code Status on File) Date Activated Date Inactivated Comments 08/21/2023 2:20 AM 08/23/2023 4:54 PM This order r eflects the patients wishes and were consensually agreed upon. Question Answer Comments Discussion of Advance Directives occurred with: Patient * Full Code Date Activated Date Inactivated Comments 07/08/2023 11:54 PM 07/14/2023 2:59 PM This order reflects the patients wishes and were consensually agreed upon. Question Answer Comments Discussion of Advance Directives occurred with: Patient * Full Code Date Activated Date Inactivated Comments 11/03/2022 10:55 PM 11/06/2022 5:08 PM This order re flects the patients wishes and were consensually agreed upon. Question Answer Comments Discussion of Advance Directives occurred with: Patient * Full Code Date Activated Date Inactivated Comments 01/19/2021 6:49 PM 01/25/2021 7:48 PM This order r eflects the patients wishes and were consensually agreed upon. Question Answer Comments Discussion of Advance Directives occurred with: Patient Healthcare Agents on File Name Relationship Healthcare Agent Relationship Communication Cody Villar Spouse First Alternate Health Care Agent Alondra Babin Adult Child First Alternate Health Care Agent Care Teams Labor Relations Or Personnel Negotiator Relationship Specialty Start Date End Date Amor Pate MD [address] [place] [address] [phone] PCP - General Family Medicine 12/06/22 documented as of this encounter
--- OUTSIDE RECORDS SUMMARY | 2024-08-18 16:08 | External Medical Summary | Summary of Care ---
Author Name Unknown Organization [facility] Address [address] [place] [address] Phone [phone] Care Team Providers Care Sheriff Officer Name Role Phone Amor Pate MD Primary Care Provider [phone] Reason for Visit * Reason Comments Follow Up Encounter Details Date Type Department Care Team ([facility] Contact Info) Description 08/17/2024 4:30 PM [facility] Telemedicine Hematology Oncology, [place] [address] [address] [place] [address] Billy Basurto MD [address] [place] [phone] Altered mental status, unspecified altered mental status type*; Slurring of speech Allergies No known active allergiesdocumented as of [...] morning. 45 Tablet 3 4 Active Nystatin 603213 UNIT/GM External CreamIndications: Candidal intertrigo Apply topically [...] multicystic lesion of the pancreas CEA, FLUID 55473.0 ng/mL Final COMMENT Final The reference range [...] Plan (12/08/2021 5:25 PM EDT): S/p pacemaker custodial current use of anticoagulant therapy 0 08/28/2010 [...] patient does not have a Power of Sales Project Engineer or Advanced Directives in place at this [...] 024 Confusion 07/08/2023 02/04/2024 Generalized weakness 07/08/2023 024 Assessment & Plan (11/28/2023 11:43 AM EDT): [...] Plan (12/04/2022 10:54 AM EDT): PCP gave keluis a yesteday Has home health SN Seeing wound [...] mRNA, LNP-s, No Pre serve, 2-Dose Series ([facility]) 10/26/2020,09/30/2020 Pneumococcal Conjugate Vacc, 13 Valent (Prevnar) 02/01/2016 Seasonal Influenza Vac., MDV , IM, 0.5 mL (Fluzone) 04/26/2014,04/23/2013,04/24/2012,2010,04/25/2010,05/24/2009,05/25/2008,1 ,06/22/2006 Seasonal Influenza, High Dos e, Trivalent, PF, IM (Fluzone HD) 05/05/2024 Seasonal Influenza, PF, 6 M & above, IM , (FluLaval or Fluzone) 05/10/2020,05/26/2019,05/19/2018,2016 Seasonal Influenza, Quadriva lent Hd (Fluzone Hd) 04/29/2023,05/28/2022,05/18/2021 Seasonal Influenza, Quadriva lent, No Preserve, IM 05/30/2016,05/30/2015 TDAP (age 10 and older)(Boostrix) 10/03/2012 Varicella [...] Mikki Gann RN documented in this encounter Progress Notes * Billy Basurto MD - 08/17/2024 1:13 PM EST . Hematology/Oncology Outpatient Clinic Note [facility] HEMATOLOGY/ONCOLOGY - [facility] After connecting to the patient via telephone, the patient was identified by name and date of . Patient was then informed that this was a telephone call only visit. The patient agreed to participate. Visit Disposition: Routine follow-up Total call duration was 11 minutes. Name: Zulma Villar Date: 06/17/24 CHIEF COMPLAINT: Zulma Villar is a 88 year old female here today for f/u visit. HISTORY OF PRESENT ILLNESS: 88-year-old woman, with history of multiple medical problems including atrial fibrillation on warfarin, tachybradycardia syndrome, cardiac pacemaker, aortic calcification, congestive heart failure, history hematuria, dyslipidemia, cataracts, osteopenia, macrocytic anemia, history of vitamin D deficiency, first-degree atrioventricular block, hypertension, mitral valve regurgitation, acquired cyst of the kidneys, actinic keratosis, pancreatic cysts, IPMN, history of hydronephrosis, varicose veinsof the leg, paresthesias of the foot bilaterally, hammertoe of the right foot, lower back pain, hearing loss of the right ear, osteoarthritis, atherosclerosis of both carotid arteries, coronary artery calcification, primary osteoarthritis of the hips, neuropathy, GERD, history of fracture left hip,history of osteoporosis, kidney splenic cyst, venous insufficiency, here for evaluation of iron deficiency anemia. Has had low plt in the past but latest plt count 04/18/22 was normal. Patient saw Lelo Crawford on October 24 of this year. Again the patient has a history of macrocytic anemia. There were no labs prior to the visit in October. There was long-term stability of anemia, possibly related to a long-term bone marrow process. The latest CBC reveals hemoglobin of 10.8, hematocrit of 34.3 and macrocytosis with an MCV of 100.6. Reticulocyte count on December 28 was 2.37%. 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 2 kids, 1 daughter 62, 1 son 56 4 grandchildren, 1 great grandchildren All healthy ___ INTERVAL HISTORY: Zulma Villar is a 88 year old female with a history as outlined above. Currently here for f/u visit today. 05/22: Legs feel a bit weak. Still with pain in the feet, following with [facility] (clerk carrier). Energy is ok. Also intermittent pain in the left hip. Has moderate leg swelling, similar to prior bilaterally 09/18: Energy is up and down. Feels she is walking a little better. Pt says her left leg has been bigger than her right for the last week. 10/01: Left leg wounds are better - 2 wounds are scabbed over. Mild headache yesterday, better today, gone away with tylenol. 10/24: Legs are feeling very weak yesterday and today. Days when she takes lasix and spironolactone are worse in terms of weakness. Wearing stockings on feet. Feels weaker with stockings on them. Today especially feeling more weak. No new pain. Mild headache this morning, better now. Has 1 ulcer on the right foot. Is very tired. Getting better slowly, wearing a patch on it. Has some dark stools with iron. 03/11: Had been on abx for R foot cellulitis and UTI recently, needed abx change to keflex due to Proteus in urine, and since being put on that she has improved significantly. R foot used to be swollen and red but improved. Burning with urination is better. Legs not as shaky. Energy remains low. S/p venofer x 1 on 02/13. On 02/25, hgb 8.1-->10-->10.6, plt 139. Tsat nl, ferritin 298, somewhat high Still with some burning with urination. R foot still painful when she walks. Has bedsore on rear end, bleeds sometimes, is sore. Energy still low. Appetite is ok. Send msg to wound care about bedsore bleeding. Lost 13 lb in the last 3 mo, but went up 3-4 lb in the last few weeks. Still with some burning with urination. 05/13: Stopped oral iron in late Mar for high ferritin. Had several falls at home in Apr. Became hypotensive. Developing sores on l and r buttock and right foot. Wounds worsening. 07/08: Sounds more confused, slurring some words. Concern for possible bone infection in foot and wounds continue to fail to heal with worsening. Plan is for medrano cath insertion to divert urine away. Legs feel weaker but pt denies she is close to falling. No new pain. Energy is not that good. Appetite is ok. Weight is about 148. Stools are dark brown. Legs more swollen today, pt has not taken her diuretics in the last couple days. Was having several doctors appts and didn't want to run to the bathroom in between doctor appts Had a tiny bit of blood on the handkerchief Feet feel numb, chronic. Discussed case some with daughter, she is getting worse clinically. 10/08: Was in the hospital from 08/20-08/23 with weakness. Had open wounds in the buttocks, went to wound clinic for this. Was dcd to rehab [facility] homes, There also concerned with UTI. Has been there since discharge. Denies pain. Energy is better. Appetite is ok, eating ok. Weight up significantly, now 159. 02/11: No pain Fell on January 02, missed chair and fell, did not hit head per pt. No LOC. No confusion when fell. Energy is lower. Appetite. Weight is stable. Occ chest pain lasting a few seconds. Sharp. Legs weak compared to August. Slowly improving. 06/17: Legs are shaky. Using walker to get around. Calves are sore. Both about the same. Had some chest discomfort this morning, 20 seconds, drank some, burped and went away. Energy is good. Appetite is good. Weight is stable. 08/17/24: Feeling very weak. L knee hurts when she walks around. Has been walking around with her walker, per , better in the last few days.. Energy is really low. Eating pretty well per . Weight is stable. Had some chest pain yesterday. No palpitations. Had some diarrhea last . Some increased urination. A little bit of scratches on skin but not much bleeding or bruising. Has difficulty eating, needs assistance with eating. Current Outpatient Medications Medication Sig Dispense Refill Sennosides 8.6 MG Oral Tablet (Senokot) Take 2 Tablets by mouth daily as needed for Constipation. (Patient taking differently: Take 2 Tablets by mouth daily as needed for Constipation. Pt taking 1 every evening and additional 1 if needed) 30 Tablet 0 Ferrous Sulfate 325 (65 Fe) MG Oral Tablet (Feosol) Take 1 tab Saturday and only. 8 Tablet 0 Acetaminophen 325 MG Oral Tablet (Tylenol) Take 2 Tablets by mouth every 6 hours. 30 Tablet 0 Vitamin D (Cholecalciferol) 25 MCG (1000 UT) Oral Capsule Take 1 Capsule by mouth in the morning. 30 Capsule 0 Multivitamin Adults Oral Tablet Take 1 Tablet by mouth in the morning. 30 Tablet 0 Lutein 6 MG Oral Capsule Take 1 Capsule by mouth in the morning. 30 Capsule 0 DIURETIC TITRATION PLAN If no improvement on day 3, contact heart failure managing provider. 1 Each0 Vitamin B-12 500 MCG Oral Tablet (vitamin B-12) Take one tab twice a week 26 Tablet 0 Biotin 1000 MCG Oral Tablet Take 1 Tablet by mouth in the morning. 30 Tablet 0 Pbpnvwe-Xmtajrouo-Kfjfotf D ER 600-40-500 MG-MG-UNIT Tablet Extended Release 24 Hour one daily (mayuse otc ) 30 Tablet 0 Folic Acid 0.8 MG Oral Capsule Take 1 Tablet by mouth in the morning. Metoprolol Succinate ER 25 MG Oral Tablet Extended Release 24 Hour (toPROL XL) Take 0.5 Tablets by mouth in the morning. 45 Tablet 3 Nystatin 676496 UNIT/GM External Cream Apply topically to affected area 2 times a day. To affacted area for two weeks. 15 g 2 Omeprazole 20 MG Oral Capsule Delayed Release (PriLOSEC) Take 1 capsule by mouth in the morning 90 Capsule 0 Spironolactone 25 MG Oral Tablet (Aldactone) Take 1 Tablet by mouth once a day on Saturday, Saturday, and Saturday only. 40 Tablet 3 Warfarin Sodium 2 MG Oral Tablet (Coumadin) TAKE 1 TO 2 TABLETS BY MOUTH IN THE EVENING DIRECTEDBY COUMADIN CLINIC 90 Tablet 1 Sodium Hyaluronate 60 MG/3ML Intra-articular Prefilled Syringe (Plynked) Inject contents of prefilled syringe into the left knee joint once. 3 mL 0 rOPINIRole HCl 0.25 MG Oral Tablet (Requip) TAKE 1 TABLET BY MOUTH IN THE MORNING AND 1 IN THE EVENING 180 Tablet 0 Sertraline HCl 50 MG Oral Tablet (Zoloft) TAKE 1 TABLET BY MOUTH IN THE MORNING 30 Tablet 5 Furosemide 20 MG Oral Tablet (Lasix) Take 1 tablet by mouth once daily 30 Tablet 0 No current facility-administered medications for this visit. REVIEW OF SYSTEMS: 12 point ROS performed and negative with exception of what is mentioned in the hpi. OBJECTIVE: There were no vitals filed for this visit. Wt Readings from Last 5 Encounters: 05/05/24 67.1 kg (148 lb) 02/12/24 67.1 kg (148 lb) 12/10/23 68.1 kg (150 lb 3.2 oz) 11/18/23 68 kg (150 lb) 11/04/23 68.9 kg (152 lb) @PAINLINK@ PHYSICAL EXAM: Phone visit LABS: Results for orders placed or performed in visit on 08/06/24 PT INR Result Value Ref Range Prothrombin Time 28.7 (H) 11.6 - 15.2 seconds INR 2.7 (H) 0.8 - 1.2 *Note: Due to a large number of results and/or encounters for the requested time period, some results have not been displayed. A complete set of results can be found in Results Review. IMPRESSION/PLAN: 88-year-old woman, with history of multiple medical problems including atrial fibrillation on warfarin, tachybradycardia syndrome, cardiac pacemaker, aortic calcification, congestive heart failure, history hematuria, dyslipidemia, cataracts, osteopenia, macrocytic anemia, history of vitamin D deficiency, first-degree atrioventricular block, hypertension, mitral valve regurgitation, acquired cyst of the kidneys, actinic keratosis, pancreatic cysts, IPMN, history of hydronephrosis, varicose veinsof the leg, paresthesias of the foot bilaterally, hammertoe of the right foot, lower back pain, hearing loss of the right ear, osteoarthritis, atherosclerosis of both carotid arteries, coronary artery calcification, primary osteoarthritis of the hips, neuropathy, GERD, history of fracture left hip,history of osteoporosis, kidney splenic cyst, venous insufficiency, here for evaluation of iron deficiency anemia. Has had low plt in the past but latest plt count 04/18/22 was normal. Patient saw Lelo Crawford on October 24 of this year. Again the patient has a history of macrocytic anemia. There were no labs prior to the visit in October. There was long-term stability of anemia, possibly related to a long-term bone marrow process. The latest CBC reveals hemoglobin of 10.8, hematocrit of 34.3 and macrocytosis with an MCV of 100.6. Reticulocyte count on December 28 was 2.37%. 10/24: Iron studies stable, high ferritin. Stop oral iron Check iron studies every 2 months 03/11: S/p 1 dose of iv venofer Pt had elevated ferritin but wants to stay on oral iron because she thinks she has more energy on it Ok with this but Zulma will need to check iron studies, ferritin more often, if ferritin climbs higher, rao >400 or so would be more vigilant to pause the oral iron 07/08: slurring words some, slow to talk, dysuria, legs feel weak 10/08: In rehab since 08/20, actually much better, has been doing rehab, wounds healed gained 10 lb. Needs new labs. 02/11: Still weak in legs, but slightly better than compared to October Iron studies are improved on twice weekly iron. 06/17: doing ok, just a bit unsteady, using walker to get around. #slurring words, change of mental status Advise ED visit abby, pt is in agreement to go to ED but wants to wait until son comes from [place] either tonight or tomorrow. Pt on hospice. Son and daughter and want her off of hospice. Zulma is agreeable. Daughter is primary health care agent. PATIENT WANTS TO COME OFF OF HOSPICE. Return in 2 weeks to discuss other issues I had a discussion with Zulma Villar regarding the plan of care, treatment and other issues. Billy Basurto MD No charge I had a discussion with Zulma Villar regarding the plan of care, treatment and other issues. rtc 4 mo documented in this encounter Plan of Treatment Upcoming Encounters Date Type Department Care Team (Late st Contact Info) Description 08/18/2024 8:00 AM EST Laboratory Lab Mobile Phlebotomy [place] [address] [place] [address] Gl, Gml Mobile Home Draw [address] [place] [address] 08/20/2024 8:00 AM EST Laboratory Lab Mobile Phlebotomy [facility] [address] [place] [address] [facility], Gml Mobile Home Draw [address] [place] [address] 08/21/2024 6:00 AM EST Anticoagulation [facility], Derrek Denton [address] [place] [address] [place] [address] [facility], [address] [place] [address] 08/25/2024 8:10 AM EST Laboratory Lab Mobile Phlebotomy [facility] [address] [place] [address] [facility], [facility] Mobile Home Draw [address] [place] [address] 08/26/2024 5:40 PM EST Office Visit [facility] [address] [place] [place] [phone] Amor Pate MD [address] [address] 09/01/2024 8:00 AM EST Laboratory Lab Mobile Phlebotomy [place] [address] [place] [address] Gl, Gml Mobile Home Draw [address]es[address] [place] [address] 09/08/2024 8:00 AM EST Laboratory Lab Mobile Phlebotomy [facility] [address] [place] [address] [facility], Gm Mobile Home Draw [address] [place] [address] 09/10/2024 12:50 PM EST Office Visit Dermatology, Ad[place]a GreenFrancisco [address] [place] [address] Marilyn Ozuna PA-C [address] [place] [address] 09/15/2024 8:00 AM EST Laboratory Lab Mobile Phlebotomy [facility] [address] [place] [address] [facility], [facility] Mobile Home Draw [address] PEPITOFRANCISCO Cheng [address] 09/17/2024 11:00 AM EST Laboratory Laboratory, [place] [address] [facility] [place] [id number] [place], Lab 21 [facility] DEBRAMADISONFRANC[place]CO Cheng [address] 09/22/2024 8:00 AM EST Laboratory Lab Mobile Phlebotomy [facility] [address] [place] [address] [facility], [facility] Mobile Home Draw 400 [facility] DEBRAMADISONFRANCISCO Cheng [address] 09/28/2024 3:30 PM EST Office Visit Otolaryngology, Adwoa Francisco Lozada [address] [place] [address] [address] Hema Hercules PA-C [address] [place] [address] 09/29/2024 8:00 AM EST Laboratory Lab Mobile Phlebotomy [facility] [address] RichardsonFRANCISCO newman [address] Gl, Gml Mobile Home Draw [address] RICHARDSONJOEMariiaSkylar, [place] [address] 10/06/2024 8:00 AM EST Laboratory Lab Mobile Phlebotomy [facility] [address] [place] [address] Gl, Gml Mobile Home Draw [address] S[place]H, [place] [address] 10/13/2024 8:00 AM EDT Laboratory Lab Mobile Phlebotomy [facility] [address] [place] [address] Gl, Gml Mobile Home Draw [address] PEPITOSkylar, [place] [address] 10/20/2024 8:00 AM EDT Laboratory Lab Mobile Phlebotomy [facility] [address] RichardsontowFRANCISCO cheng [address] Gl, Gm Mobile Home Draw [address] RICHARDSONJOESkylar, [place] [address] 10/27/2024 8:00 AM EDT Laboratory Lab Mobile Phlebotomy [facility] [address] [place] [address] Gl, Gml Mobile Home Draw [address] PEPITOFRANCISCO Cheng [address] 11/03/2024 8:00 AM EDT Laboratory Lab Mobile Phlebotomy [facility] [address] [place] Singh [address] Gl, Gm Mobile Home Draw [address] [place] [address] 11/03/2024 12:30 PM EDT Office Visit Gastroenterology, [facility] [place] [address] [facility] [place] [address] Gisel Patel, [employer] [address] [place] [address] 11/03/2024 3:00 PM EDT Office Visit Cardiology, [place] [address] [place] [address] Stephanie Ramos PA-C 400 [place] [address] 11/10/2024 8:00 AM EDT Laboratory Lab Mobile Phlebotomy [facility] [address] [place] [address] [facility], [facility] Mobile Home Draw [address] [place] [address] 11/16/2024 1:00 PM EDT Office Visit Podiatry, [facility] [address] [place] [address] Sydney Castelan, DP [address] [place] [address] 11/17/2024 8:00 AM EDT Laboratory Lab Mobile Phlebotomy [address] [place] [address] [facility], [facility] Mobile Home Draw [address] [place] [address] 11/24/2024 8:00 AM EDT Laboratory Lab Mobile Phlebotomy [facility] [address] [place] [address] [facility], Gm Mobile Home Draw [address] [place] [address] 12/01/2024 8:00 AM EDT Laboratory Lab Mobile Phlebotomy [facility] [address] [facility] [address] [facility], l Mobile Home Draw [address] [place] [address] 12/07/2024 1:30 PM EDT Nurse Only Rheumatology, [address] [address] [place], Nurse Rheumatology [address] [place] [address] 12/31/2024 1:00 PM EDT Cardiac Studies Cardiology, [address] [address] [place], Pacer Clinic [address] [place] [address] 02/04/2025 12:00 PM EDT Home Visit Care at Home [address] [place] [address] Carol Mathew PA-C [address] [place] [address] 06/14/2025 2:00 PM EST Office Visit Rheumatology, [address] [address] Monster Jackman, PA-C [address] [place] [address] Scheduled Procedures Name Priority Associated Diagnoses Date/Ti [...] Additional history exists CKD PHOS USE SMARTSET 76515 08/22/202408/05, 08/20/2023, 11/07/2022, Additional history exists HbA1c 10/14/2024 04/16/2024, 1212/2022, 04/01/2023 Albumin/Creatinine Ratio 12/05/2024 12/06/2023, 03/06 Adult Wellness Visit 02/03/2025 02/04/2024, 02/29/20 23 Depression Screening 02/03/2025 02/04/2024, 12/10/19 24 DXA Scan 04/22/2025 04/22/2023, 04/05, 12/25/2018, Additional history exists CKD HGB USE SMARTSET 12356 05/06/202505/06, 05/06/2024, 03/02/2024, Additional history exists Pneumococcal Vaccine: 50+ Years Completed 02/01/2016, 10/27/2002 VITAMIN D LEVEL ONCE IN A LIFETIME-USE SMARTSET# 36576 Completed 04/16/2024, 09/16/2023, 10/20/2019, Additional history exists [...] this encounter Medical Devices Implanted Type Area Bondactor Machine Operator Device Identifier Shelf Expiration Date Model / Serial / Lot Implant System, Trim-It Drill Pin [id number]" X 4" Implanted:Qty: 1 on 10/10/2017 by Sydney Castelan DPM at OR [facility] Right: Toe 04/04/2019 [id number] / / [id number] Medtronic Attesta Surescan Pacemaker Implanted:Qty: 1 on 06/09/2020 by Chanel Lin DO at OR [facility] Left: Chest 08/01/2021 [id number] / [id number] / Nail [id number] Left [id number] - [id number] Implanted:Qty: 1 on 01/20/2021 by Alli Townsend MD at OR [facility] Left: Hip MILAN : TRAUMA 12/03/2023 3525-034 [id number] / / [id number] Screw Lag 10.5x95mm - [id number] Implanted:Qty: 1 on 01/20/2021 by Alli Townsend MD at OR [facility] Left: Hip MILAN : TRAUMA 11/02/2025 [id number] / / [id number] Screw T2 Alpha Lock 5x47.5mm - [id number] Implanted:Qty: 1 on 01/20/2021 by Alli Townsend MD at OR [facility] Left: Hip MILAN : TRAUMA 05/04/2029 [id number] / / [id number] documented as of this encounter Visit Diagnoses Diagnosis Atrial fibrillation, chronic (HCC)- Primary Atrial fibrillation Cardiac pacemaker in situ Tachy-nikki syndrome (HCC) Sinoatrial node dysfunction Chronic diastolic (congestive) heart failure (HCC) Macrocytic anemia Unspecified deficiency anemia Venous insufficiency Unspecified venous (peripheral) insufficiency Advanced care planning/counseling discussion Other specified counseling Wound of left lower extremity, subsequent encounter- Primary Solar purpura (HCC) Other nonthrombocytopenic purpuras Dyslipidemia, goal LDL below 70 Other and unspecified hyperlipidemia Gastroesophageal reflux disease without esophagitis Esophageal reflux Pancreatic cyst Cyst and pseudocyst of pancreas Nontoxic single thyroid nodule Nontoxic uninodular goiter Cardiac pacemaker in situ Atrial fibrillation, chronic (HCC) Atrial fibrillation Cellulitis of left lower extremity Cellulitis and abscess of leg, except foot Tachy-nikki syndrome (HCC) Sinoatrial node dysfunction 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) Hypertensive heart and chronic kidney disease with chronic diastolic congestive heart failure, unspecified CKD stage (HCC)- Primary Type 2 diabetes mellitus with diabetic chronic kidney disease, unspecified CKD stage, unspecified whether jail insulin use (HCC) Aortic calcification (HCC) Atherosclerosis of aorta Chronic atrial fibrillation, unspecified (HCC) Cerebral atrophy (HCC) Cerebral degeneration, unspecified Non-healing ulcer of buttock, limited to breakdown of skin (HCC) Abnormality of gait Cardiac pacemaker in situ- Primary Pancreatic cyst Cyst and pseudocyst of pancreas Cerebral atrophy (HCC) Cerebral degeneration, unspecified Gastroesophageal reflux disease without esophagitis Esophageal reflux Dyslipidemia, goal LDL below 70 Other and unspecified hyperlipidemia Pulmonary hypertension, unspecified (HCC) Nontoxic single thyroid nodule Nontoxic uninodular goiter Age-related osteoporosis without current pathological fracture Senile osteoporosis 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) History of iron deficiency anemia Personal history of diseases of blood and blood-forming organs IPMN (intraductal papillary mucinous neoplasm) Neoplasm of unspecified nature of digestive system Tachy-nikki syndrome (HCC) Sinoatrial node dysfunction Pressure injury of buttock, stage 3, unspecified laterality (HCC) Generalized weakness Other malaise and fatigue Blister of right foot, subsequent encounter- Primary Ambulatory dysfunction Recurrent cystitis Cystitis, unspecified Type 2 diabetes mellitus with hemoglobin A1c goal of less than 7.0% (HCC)- Primary 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) Dyslipidemia, goal LDL below 70 Other and unspecified hyperlipidemia DM peripheral angiopathy (HCC) Type II or unspecified type diabetes mellitus with peripheral circulatory disorders, not stated as uncontrolled Chronic atrial fibrillation, unspecified (HCC) Pressure injury of left buttock, stage 2 (HCC)- Primary Pressure injury of left buttock, stage 2 (HCC)- Primary Altered mental status, unspecified altered mental status type- Primary Slurring of speech Other speech disturbance documented in this encounter Advance Directives Documents on File Type Date Recorded 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
--- OUTSIDE RECORDS SUMMARY | 2024-08-18 16:08 | External Medical Summary | Summary of Care ---
Author Name Unknown Organization [facility] Address [address] [place] [address] Phone [phone] Care Team Providers Care Speeder Operator Name Role Phone Amor Pate MD Primary Care Provider [phone] Reason for Visit * Reason Onset Date Comments Other 08/17/2024 Chane of mental status Encounter Details Date Type Department Care Team (Late st Contact Info) Description 08/17/2024 Telephone Hematology/Oncology Treatment, [facility] [address] [place] [address] Billy Basurto MD [address] [place] [address] Other (Chane of mental status) Allergies No known active allergiesdocumented as of [...] morning. 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 Ulcer of right foot 07/08/2023 11/28/19 24 Urinary hesitancy 04/01/2023 11/28/2023 Malnutrition of moderate [...] 07/3 08/2022 Chronic diastolic (congestive) heart failure 2 11/28/2023 Assessment & Plan (12/08/2021 5:26 PM [...] 01/27/08 12.5 FINAL 03/05/05 12.7 08/29/01 12.4 9/4/98 12.5 03/06/2005 cbc b12 ,folate nl 11/2004 [...] mRNA, LNP-s, No Pre serve, 2-Dose Series (PSafe) 10/26/2020,09/30/2020 Pneumococcal Conjugate Vacc, 13 Valent (Prevnar) [...] of Assessment Author Yes 08/22/2023 4:29 PM EST Dee Dee Agustin RN * Do you have difficulty dressing [...] encounter Miscellaneous Notes * Telephone Encounter - Billy Basurto MD - 08/17/2024 12:40 PM EST Spoke to Nacho on the phone. Per him and his sister their mother is having increasing slurring of her words, confusion, and poorly sleeping. Patient was earlier adamant and refusing to go to the ER. But she was also homebound and unable to come to the lab for labs or clinic for a visit. She is on hospice currently. The daughter and son would like her to come off of hospice. It does seem that she is probably unlikely to have c apacity but I will assess this later today in a phone visit. They were dissatisfied with hospice and said that they did not know that she would not be able to get treatment or labs or see other doctors while on hospice. I did let Blayne know that if his mother had capacity and she decided to stay on hospice that this request would have to be honored. On the other hand if she did not have capacity and there were no directives written down then it would be up to the power of commonwealth attorney or primary healthcare agent to decide. Blayne indicated he would be driving up from [place] and would bring his mother to the ER himself. I also left a message on Alondra's phone. documented in this encounter Plan of Treatment Upcoming Encounters Date Type Department Care Team (Late st Contact Info) Description 08/17/2024 4:30 PM EST Telemedicine Hematology Oncology, [place] [address] [place] [address] Billy Basurto MD [address] [place] [phone] 08/18/2024 8:00 AM EST Laboratory Lab Mobile Phlebotomy [facility] [address] [place] [address] [facility] Mobile Home Draw [address] [place] [address] 08/18/2024 3:30 PM EST Office Visit Otolaryngology, Francisco Polanco [address] [place] [address] Hema Hercules PA-C [address] [place] [address] [address] 08/20/2024 8:00 AM EST Laboratory Lab Mobile [facility]lebot[facility] [address] [place] [address] [facility], [facility] Mobile Home Draw [address] [place] [address] 08/21/2024 6:00 AM EST Anticoagulation Centralized Clinical Pharmacy Services, Derrek Corrie [address] [place] [address] [place] [address] [facility], [address] [place] [address] 08/25/2024 8:10 AM EST Laboratory Lab Mobile [facility]lebot[facility] [address] [place] [address] [facility], [facility] Mobile Home Draw [address] [place] [address] 08/26/2024 5:40 PM EST Office Visit Family Practice, [place] [address] [phone] Amor Pate MD [address] [place] [place] [address] 09/01/2024 8:00 AM EST Laboratory Lab Mobile [facility]bot[facility] [address] [place] [address] [facility], [facility] Mobile Home Draw [address] [place] [address] 09/08/2024 8:00 AM EST Laboratory Lab Mobile [facility]bot[facility] [address] [place] [address] Gl, Gm Mobile Home Draw [address] [place] [address] 09/10/2024 12:50 PM EST Office Visit Dermatology, Francisco Caballero [address] [place] [address] Marilyn Ozuna PA-C [address] [place] [address] 09/15/2024 8:00 AM EST Laboratory Lab Mobile [facility]lebot[facility] [address] [place], [place] [address] Gl, G[facility] Mobile Home Draw [address] [facility] [place] [address] 09/17/2024 11:00 AM EST Laboratory Laboratory, [place] [facility] [phone] [facility] [address] 09/22/2024 8:00 AM EST Laboratory Lab [facility] [address] [place], [place] [address] [facility], [facility] Mobile Home Draw [address] [facility] [place] [address] 09/29/2024 8:00 AM EST Laboratory Lab [facility] [address] [place], [place] [address] [facility], [facility] Mobile Home Draw [address] [facility] [place] [address] 10/06/2024 8:00 AM EST Laboratory Lab Mobile [facility] [address] [place], [place] [address] Gl, Gml Mobile Home Draw [address] [facility] [place] [address] 10/13/2024 8:00 AM EDT Laboratory Lab Mobile [facility]bot[facility] [address] [place], [place] [address] Gl, Gml Mobile Home Draw [address] [place], [place] [address] 10/20/2024 8:00 AM EDT Laboratory Lab Mobile [facility]bot[facility] [address] [place], [place] [address] [facility], [facility] Mobile Home Draw [address] [facility] [place] [address] 10/27/2024 8:00 AM EDT Laboratory Lab Mobile [facility]bot[facility] [address] [place], [place] [address] Gl, Gm Mobile Home Draw [address] [facility] [place] [address] 11/03/2024 8:00 AM EDT Laboratory Lab Mobile [facility] [address] [place], [place] [address] [facility] Mobile Home Draw [address] [facility] [place] [address] 11/03/2024 12:30 PM EDT Office Visit Gastroenterology, [facility] [address] [place] [phone] Gisel Patel, PARK MAINTAINER [address] [facility] [place] [address] 11/03/2024 3:00 PM EDT Office Visit Cardiology, [place] [address] [place] [address] Stephanie Ramos PA-C [address] [place] [address] 11/10/2024 8:00 AM EDT Laboratory Lab Mobile Phlebot[facility] [address] [place] [address] Gl, [facility] Mobile Home Draw [address] [place]IF[place] [address] 11/16/2024 1:00 PM EDT Office Visit Podiatry, [address], [place] [address] Sydney Castelan, DPM 400 [facility], [place] [address] 11/17/2024 8:00 AM EDT Laboratory Lab Mobile Phlebotomy [address], [place] [address] Gl, [facility] Mobile Home Draw [address] [place] [address] [place] [address] 11/24/2024 8:00 AM EDT Laboratory Lab Mobile Phlebotomy [address], [place] [address] [facility] Mobile Home Draw [address] [place] [address], [place] [address] 12/01/2024 8:00 AM EDT Laboratory Lab Mobile Phlebotomy [address], [place] [address] [facility] Mobile Home Draw [address] [place] [address] 12/07/2024 1:30 PM EDT Nurse Only Rheumatology, [address], [place] [address] [place], Nurse Rheumatology [address] [place] [address] [place] [address] 12/31/2024 1:00 PM EDT Cardiac Studies Cardiology, [address] [address] [place], Pacer Clinic [address] [place] [address], [place] [address] 02/04/2025 12:00 PM EDT Home Visit Care at Home [address] [facility] [place] [address] Carol Mathew PA-C [address] [facility] [place] [address] 06/14/2025 2:00 PM EST Office Visit Rheumatology, [address] [address] Monster Jackman PA-C [address] [employer] [facility], [place] [phone] Scheduled Procedures Name Priority Associated Diagnoses Date/Ti [...] Additional history exists CKD PHOS USE SMARTSET 67790 08/22/202408/05, 08/20/2023, 11/07/2022, Additional history exists HbA1c 10/14/2024 04/16/2024, 1212/2022, 04/01/2023 Albumin/Creatinine Ratio 12/05/2024 12/06/2023, 03/06 Adult Wellness Visit 02/03/2025 02/04/2024, 02/29/20 23 Depression Screening 02/03/2025 02/04/2024, 12/10/19 24 DXA Scan 04/22/2025 04/22/2023, 04/05, 12/25/2018, Additional history exists CKD HGB USE SMARTSET 13230 05/06/202505/06, 05/06/2024, 03/02/2024, Additional history exists Pneumococcal Vaccine: 50+ Years Completed 02/01/2016, 10/27/2002 VITAMIN D LEVEL ONCE IN A LIFETIME-USE SMARTSET# 12747 Completed 04/16/2024, 09/16/2023, 10/20/2019, Additional history exists [...] this encounter Medical Devices Implanted Type Area Floor Nurse Device Identifier Shelf Expiration Date Model / Serial / Lot Implant System, Trim-It Drill Pin [id number]" X 4" Implanted:Qty: 1 on 10/10/2017 by Sydney Castelan DPM at OR [facility] Right: Toe 04/04/2019 AR-[id number] / / [id number] Medtronic Attesta Surescan Pacemaker Implanted:Qty: 1 on 06/09/2020 by Chanel Lin DO at OR [facility] Left: Chest 08/01/2021 ATSR01 / [id number] / Nail [id number] Left [id number] - [id number] Implanted:Qty: 1 on 01/20/2021 by Alli Townsend MD at OR [facility] Left: Hip MILAN : TRAUMA 12/03/2023 3525-034 0S / / [id number] Screw Lag 10.5x95mm - [id number] Implanted:Qty: 1 on 01/20/2021 by Alli Townsend MD at OR [facility] Left: Hip MILAN : TRAUMA 11/02/2025 3060-009 5S / / [id number] Screw T2 Alpha Lock 5x47.5mm - [id number] Implanted:Qty: 1 on 01/20/2021 by Alli Townsend MD at OR [facility] Left: Hip MILAN : TRAUMA 05/04/2029 2360-504 7S / / [id number] documented as of this encounter Advance Directives Documents on File Type Date Recorded Patient B2B Sales Professional Raman OLIVO 07/15/2023 [place] FOR LIFE-SUSTAINING TREATMENT * Full Code (Latest [...] First Alternate Health Care Agent Care Teams Speeder Operator Relationship Specialty Start Date End Date Amor Pate MD [address] [place] [address] [phone] PCP - General Family Medicine 12/06/22 documented as of this encounter
--- OUTSIDE RECORDS SUMMARY | 2024-08-18 16:09 | External Medical Summary | Summary of Care ---
Author Name Unknown Organization [facility] Address [address] [place] [address] Phone [phone] Care Team Providers Care Manufacturing Sr Engineer Name Role Phone Amor Pate MD Primary Care Provider [phone] Reason for Visit * Reason Onset Date Comments Advice 08/13/2024 Encounter Details Date Type Department Care Team (Late st Contact Info) Description 08/13/2024 Telephone [facility] [address] [place] [address] Amor Pate MD [address] [place] [address] Advice Allergies No known active allergiesdocumented as of this encounter (statuses as of 08/13/2024) Medications Sennosides 8.6 MG Oral Tablet (Senokot) [...] morning. 45 Tablet 3 4 Active Nystatin 618668 UNIT/GM External CreamIndications: Candidal intertrigo Apply topically [...] as of this encounter (statuses as of 08/13/2024) Active Problems Problem Noted Date Diagnosed Date [...] 2016. Based on 12/12/2015 EUS/pat, per Dr Eelna, pt will need follow-up CT of the [...] multicystic lesion of the pancreas CEA, FLUID 39527.0 ng/mL Final COMMENT Final The reference range [...] Plan (12/08/2021 5:25 PM EDT): S/p pacemaker shelter current use of anticoagulant therapy 0 08/28/2010 [...] patient does not have a Power of Director Of Sales Support or Advanced Directives in place at this [...] as of this encounter (statuses as of 08/13/2024) Resolved Problems Problem Noted Date Diagnosed Date [...] as of this encounter (statuses as of 08/13/2024) Immunizations Name Administration Dates Next Due COVID-19 [...] encounter Miscellaneous Notes * Telephone Encounter - Allison Wilder, MED ASSIST - 08/13/2024 11:46 AM EST [...] he left a message last night for [facility] and has heard from them. * Telephone Encounter - Amor Pate MD - 08/13/2024 10:57 AM EST Please schedule acute visit today. Ask for any urinary symptoms Thanks! Amor Pate MD, [place] Family Physician Abelardo [place] * Telephone Encounter - Steve Paige LPN - 08/13/2024 8:31 AM EST [...] Asks that he is called back at [phone]. States that the pt does not know that he called. Please advise. * Telephone Encounter - Kim Yoedr OSA - 08/13/2024 8:24 AM EST Reason for patient's call: pt's son has some concerns with pt possibly having hallucinations. Stated she seems okay while speaking with her and not noticed other symptoms Caller was transferred to steve at the nurse line. documented in this encounter Plan of Treatment Upcoming Encounters Date Type Department Care Team (Late st Contact Info) Description 08/18/2024 3:30 PM EST Office Visit Otolaryngology[place]wo[place] [address] [place] [address] Hema Hercules PA-C [address] [place] [address] 08/20/2024 8:00 AM EST Laboratory Lab Mobile Phlebotomy [facility] [address] [place] [address] [facility] Mobile Home Draw [address] [place] [address] 08/21/2024 6:00 AM EST Anticoagulation Centralized Clinical Pharmacy Services, Derrek Denton [address] [place] [address] [place] [address] [place] [address] 08/26/2024 5:40 PM EST Office Visit Family Practice, [place] [address] [place] [phone] Amor Pate MD 21 [facility] [place] [address] 09/10/2024 12:50 PM EST Office Visit [place]atology, [place] [address] [place] [address] Marilyn Ozuna PA-C [address] [place] [address] 09/17/2024 11:00 AM EST Laboratory Laboratory, [place] [address] [place] [phone] [facility] 21 [facility] [place] [address] 11/03/2024 12:30 PM EDT Office Visit Gastroenterology, [facility] [place] 310 [facility] [place] [phone] Gisel Patel CRNP [address] [place] [address] 11/03/2024 3:00 PM EDT Office Visit Cardiology, [place] [address] [place] [address] Stephanie Ramos PA-C 400 [facility] [place] [phone] 12/07/2024 1:30 PM EDT Nurse Only Rheumatology, [address] [address] [place], Nurse Rheumatology [address] [place] [address] 12/31/2024 1:00 PM EDT Cardiac Studies Cardiology, [address] [address] [place], Pacer Clinic [address] [place] [phone] 02/04/2025 12:00 PM EDT Home Visit Care at Home [address] [place], [place] [phone] Carol Mathew PA-C [address] [place], [place] [phone] 06/14/2025 2:00 PM EST Office Visit Rheumatology, [address] [phone] Monster Jackman PA-C 0898 [place] [address] Scheduled Procedures Name Priority Associated Diagnoses Date/Ti [...] Additional history exists CKD PHOS USE SMARTSET 07349 08/22/2024 01/1 03/2024, 08/20/2023, 11/07/2022, Additional history exists HbA1c 10/14/2024 04/16/2024, 12/2022, 04/01/2023 Albumin/Creatinine Ratio 12/05/2024 12/06/2023, 0803/2023 Adult Wellness Visit 02/03/2025 02/04/2024, 02/29/20 23 Depression Screening 02/03/2025 02/04/2024, 12/10/19 24 DXA Scan 04/22/2025 04/22/2023, 04/05, 12/25/2018, Additional history exists CKD HGB USE SMARTSET 07748 05/06/202505/06, 05/06/2024, 03/02/2024, Additional history exists Pneumococcal Vaccine: 50+ Years Completed 02/01/2016, 10/27/2002 VITAMIN D LEVEL ONCE IN A LIFETIME-USE SMARTSET# 36206 Completed 04/16/2024, 09/16/2023, 10/20/2019, Additional history exists [...] this encounter Medical Devices Implanted Type Area Upper [place]er Device Identifier Shelf Expiration Date Model / Serial / Lot Implant System, Trim-It Drill Pin [id number]" X 4" Implanted:Qty: 1 on 10/10/2017 by Sydney Castelan DPM at OR [facility] Right: Toe 04/04/2019 AR-[id number] / / [id number] Medtronic Attesta Surescan Pacemaker Implanted:Qty: 1 on 06/09/2020 by Chanel Lin DO at OR [facility] Left: Chest 08/01/2021 ATSR01 / [id number] / Nail [id number] Left [id number] - [id number] Implanted:Qty: 1 on 01/20/2021 by Alli Townsend MD at OR [facility] Left: Hip MILAN : TRAUMA 12/03/2023 3525-034 0S / / [id number] Screw Lag 10.5x95mm - [id number] Implanted:Qty: 1 on 01/20/2021 by Alli Townsend MD at OR [facility] Left: Hip MILAN : TRAUMA 11/02/2025 3060-009 5S / / [id number] Screw T2 Alpha Lock 5x47.5mm - [id number] Implanted:Qty: 1 on 01/20/2021 by Alli Townsend MD at OR [facility] Left: Hip MILAN : TRAUMA 05/04/2029 2360-504 7S / / [id number] documented as of this encounter Advance Directives Documents on File Type Date Recorded Patient Creative Engagement Director Expl anation POLST 07/15/2023 [place] OR [facility] FOR LIFE-SUSTAINING TREATMENT * Full Code [...] First Alternate Health Care Agent Care Teams Manufacturing Sr Engineer Relationship Specialty Start Date End Date Amor Pate MD [address] [place] [phone] PCP - General Family Medicine 12/06/22 documented as of this encounter
--- OUTSIDE RECORDS SUMMARY | 2024-08-18 16:09 | External Medical Summary | Summary of Care ---
Author Name Unknown Organization [facility] Address [address] [place] [address] Phone [phone] Care Team Providers Care Lumber Driver Name Role Phone Amor Pate MD Primary Care Provider [phone] Reason for Visit * Reason Onset Date Comments Advice 08/13/2024 Encounter Details Date Type Department Care Team (Late st Contact Info) Description 08/13/2024 Telephone [facility] [address] [place] [address] Amor Pate MD [address] [place] [address] Advice Allergies No known active [...] morning. 45 Tablet 3 4 Active Nystatin 842333 UNIT/GM External CreamIndications: Candidal intertrigo Apply topically [...] multicystic lesion of the pancreas CEA, FLUID 26402.0 ng/mL Final COMMENT Final The reference range [...] Plan (12/08/2021 5:25 PM EDT): S/p pacemaker [facility] current use of anticoagulant therapy 0 08/28/2010 [...] patient does not have a Power of Clay Puddler or Advanced Directives in place at this [...] Physician Abelardo Singh * Telephone Encounter - Blank Paige LPN [...] Asks that he is called back at [phone]. States that the pt does not know that he called. Please advise. * Telephone Encounter - Kim Yoder OSA - 08/13/2024 8:24 AM EST Reason for patient's call: pt's son has some concerns with pt possibly having hallucinations. Stated she seems okay while speaking with her and not noticed other symptoms Caller was transferred to [facility] at the nurse line. documented in this encounter Plan of Treatment Upcoming Encounters Date Type Department Care Team (Late st Contact Info) Description 08/18/2024 3:30 PM EST Office Visit Otolaryngology, Francisco Polanco [address] [address] Hema Hercules PA-C [address] [address] 08/20/2024 8:00 AM EST Laboratory Lab Mobile Phlebotomy [place] [address] [place] [address] [facility] Mobile Home Draw [address] [place] [address] 08/21/2024 6:00 AM EST Anticoagulation Centralized Clinical Pharmacy Services, Derrek Denton [address] [place] [address] [place] [address] [facility], [address] [place] [address] 08/26/2024 5:40 PM EST Office Visit Family [facility], [place] [address] [phone] Amor Pate MD [address] [place] [address] 09/10/2024 12:50 PM EST Office Visit Dermatology, Francisco Caballero [address] [place] [phone] Marilyn Ozuna PA-C [address] [address] 09/17/2024 11:00 AM EST Laboratory Laboratory, [place] [address] [place] [place] [phone] [place], [facility] 21 [facility] [place] [address] 11/03/2024 12:30 PM EDT Office Visit Gastroenterology, [facility] [address] [facility] [place] [phone] Gisel Patel, MAGDALENA [address] [place] [address] 11/03/2024 3:00 PM EDT Office Visit Cardiology, [address] [place] [address] Stephanie Ramos PA-C [address] [place] [address] 12/07/2024 1:30 PM EDT Nurse Only Rheumatology, [address] [address] [place], Nurse Rheumatology [address] [place] [address] 12/31/2024 1:00 PM EDT Cardiac Studies Cardiology, [address] [place] [address] [place], [facility] [address] [place] [address] 02/04/2025 12:00 PM EDT Home Visit Care at Home [address] [facility] [place] [address] Carol Mathew PA-C [address] [facility] [place] [address] 06/14/2025 2:00 PM EST Office Visit Rheumatology, [address] [address] Monster Jackman PA-C [address] [place], [place] [address] Scheduled Procedures Name Priority Associated Diagnoses Date/Ti [...] Additional history exists CKD PHOS USE SMARTSET 33511 08/22/202408/05, 08/20/2023, 11/07/2022, Additional history exists HbA1c 10/14/2024 04/16/2024, 1212/2022, 04/01/2023 Albumin/Creatinine Ratio 12/05/2024 12/06/2023, 03/06 Adult Wellness Visit 02/03/2025 02/04/2024, 02/29/20 23 Depression Screening 02/03/2025 02/04/2024, 12/10/19 24 DXA Scan 04/22/2025 04/22/2023, 04/05, 12/25/2018, Additional history exists CKD HGB USE SMARTSET 85343 05/06/202505/06, 05/06/2024, 03/02/2024, Additional history exists Pneumococcal Vaccine: 50+ Years Completed 02/01/2016, 10/27/2002 VITAMIN D LEVEL ONCE IN A LIFETIME-USE SMARTSET# 79247 Completed 04/16/2024, 09/16/2023, 10/20/2019, Additional history exists [...] this encounter Medical Devices Implanted Type Area Hangersmith Device Identifier Shelf Expiration Date Model / Serial / Lot Implant System, Trim-It Drill Pin [id number]" X 4" Implanted:Qty: 1 on 10/10/2017 by Sydney Castelan DPM at OR [facility] Right: Toe 04/04/2019 AR-[id number] / / [id number] Medtronic Attesta Surescan Pacemaker Implanted:Qty: 1 on 06/09/2020 by Chanel Lin DO at OR [facility] Left: Chest 08/01/2021 ATSR01 / [id number] / Nail Gamma3 Left [id number] - [id number] Implanted:Qty: 1 on 01/20/2021 by Alli Townsend MD at OR [facility] Left: Hip MILAN : TRAUMA 12/03/2023 3525-034 0S / / [id number] Screw Lag 10.5x95mm - [id number] Implanted:Qty: 1 on 01/20/2021 by Alli Townsend MD at OR [facility] Left: Hip MILAN : TRAUMA 11/02/2025 3060-009 5S / / [id number] Screw T2 Alpha Lock 5x47.5mm - [id number] Implanted:Qty: 1 on 01/20/2021 by Alli Townsend MD at OR [facility] Left: Hip MLIAN : TRAUMA 05/04/2029 [id number] 7S / / [id number] documented as of this encounter Advance Directives Documents on File Type Date Recorded Patient Broom Stitcher Expl anation POLST 07/15/2023 [place] [facility] FOR LIFE-SUSTAINING [...] First Alternate Health Care Agent Care Teams Lumber Driver Relationship Specialty Start Date End Date Amor Pate MD [address] [place] [address] PCP - General Family Medicine 12/06/22 documented as of this encounter
--- OUTSIDE RECORDS SUMMARY | 2024-08-18 16:09 | External Medical Summary ---
Author Name Unknown Address Unknown Organization K1F:LABORATORY [facility] - Betty [place] [address] Laboratory Report Ordering Provider Test Date Status ANDREW OHOVER 08/06/2024 12:53:11 Final Please draw PT/INR every 1-4 weeks or as requested by the [facility] Coumadin Clinic

Warfarin Therapy
INR: 2.0-3.0 conventional anticoagulation
INR: 2.5-3.5 high intensity anticoagulation Observation Date Value Abnormality Reference (Units ) Status PT 08/06/2024 12:53:11 28.7 Above high normal 11 .6-15.2 (seconds) Final INR 08/06/2024 12:53:11 2.7 Above high normal 0. 8-1.2 Final Performing Location LABORATORY GL - [address] [place] [address]
--- OUTSIDE RECORDS SUMMARY | 2024-08-18 16:09 | External Medical Summary | Summary of Care ---
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 Abelardo Comments Is Patient homebound? Yes All sections of this form must be filled out completely. Forms with missing or illegible information will be returned for completion. This form should not be modified in any way. Forms that have been modified will be returned. This form may not be submitted by a home health agency. It must be complete and submitted by the ordering provider. One full business day lead time is required and service will be scheduled based on the next service day for the [facility] Home Phlebotomy does not service every geographical location on a daily basis. Contact [facility] Client Services at to find out service days for a specific location. Medical Laboratory [facility] Patient Name: Zulma Villar : 1935 Sex: female Address [address] [place] [phone] Provider:Dr. Basurto Diagnosis: No diagnosis found. Tests Requested CBC - weekly starting August 18, 2024 CMP - weekly starting August 18, 2024 Urinalysis with reflex to culture - once starting August 18, 2024 Blood cultures - once starting August 18, 2024 Reason for Visit * Reason Onset Date Comments Scheduling 08/17/2024 Encounter Details Date Type Department Care Team ([facility] Contact Info) Description 08/17/2024 Telephone Hematology/Oncology, [address] [phone] Billy Basurto MD [address] [place] [phone] Scheduling Allergies No known active allergiesdocumented as of [...] morning. 45 Tablet 3 4 Active Nystatin 773757 UNIT/GM External CreamIndications: Candidal intertrigo Apply topically [...] Sodium Hyaluronate 60 MG/3ML Intra-articular Prefilled Syringe (Wikets) Inject contents of prefilled syringe into the [...] 03/04/2023 DDD (degenerative disc disease), lumbar 03/04/20 Atherosclerosis of aorta 03/04/2023 Internal hemorrhoids 03/04/2023 [...] Regimen: Beta Tika Therapy: Metoprolol Succinate (ER) JCAOB Inhibitor/ARB Therapy: No JACOB/ARB/ARNI secondary to: was [...] (11/28/2023 11:33 AM EDT): DEXA done in Sept. On prolia Gastroesophageal reflux disease without esophagi [...] ear 09/24/2017 Overview (09/24/2017): Cont fu with DrRimmey Chronic midline low back pain without sciatica 0 04/24/2017 Overview (04/24/2017): 04/24/2017 ref to pt See 9/13/17 Hammer toe of right foot 02/13/2017 Overview [...] multicystic lesion of the pancreas CEA, FLUID 47311.0 ng/mL Final COMMENT Final The reference range [...] Plan (12/08/2021 5:25 PM EDT): S/p pacemaker [facility] current use of anticoagulant therapy 0 08/28/2010 [...] patient does not have a Power of Hogshead Packer or Advanced Directives in place at this [...] at this time. Family is paying for / caregivers, although having some issues with no [...] lower leg 08/20/2017 01/27/2018 Overview (08/20/2017): 08/20/2017 [facility] by pain clinic provider Elevated [...] encounter Miscellaneous Notes * Telephone Encounter - Daphne Colón RN - 08/17/2024 10:[address] Sb Mcgrath has revoked Hospice. He placed labs orders, and wants home phlebotomy service today or tomorrow. I placed referral for home phlebotomy. I am calling the lab to see if able to do 24 hour turn around for labs. The lab staff made her an appt for tomorrow for home phlebotomy. documented in this encounter Plan of Treatment Upcoming Encounters Date Type Department Care Team (Late st Contact Info) Description 08/17/2024 4:30 PM EST Telemedicine Hematology Oncology, [place] [address] [place] [address] Billy Basurto MD [address] [place] [phone] 08/18/2024 8:00 AM EST Laboratory Lab Mobile Phlebotomy [facility] [address] [place] [address] [facility], [facility] Mobile Home Draw [address] [place] [address] 08/18/2024 3:30 PM EST Office Visit Otolaryngology, [place] [address] [place] [address] [address] Hema Hercules PA-C [address] [address] 08/20/2024 8:00 AM EST Laboratory Lab Mobile Phlebotomy [facility] [address] [place] [address] [facility], [facility] Mobile Home Draw [address] [place] [address] 08/21/2024 6:00 AM EST Anticoagulation Centralized Clinical Pharmacy Services, Derrek Denton [address] [place] [address] [place] [address] [place] [address] 08/25/2024 8:10 AM EST Laboratory Lab Mobile Phlebotomy [facility] [address] [place] [address] [facility], [facility] Mobile Home Draw [address] [place] [address] 08/26/2024 5:40 PM EST [facility] [address] [place] [phone] Amor Pate MD [address] [place] [address] 09/01/2024 8:00 AM EST Laboratory Lab Mobile Phlebotomy [facility] [address] [place] [address] Gl, Gm Mobile Home Draw [address] [facility] [place] [address] 09/08/2024 8:00 AM EST Laboratory Lab Mobile Phlebotomy [facility] [address] [place] [address] [facility], [facility] Mobile Home Draw [address] [place] [address] 09/10/2024 12:50 PM EST Office Visit Dermatology, Francisco Caballero [address] [facility] [address] [place] [address] Marilyn Ozuna PA-C [address] [place] [address] 09/15/2024 8:00 AM EST Laboratory Lab Mobile Phlebotomy [facility] [address] [place] [address] [facility], [facility] Mobile Home Draw [address] [place] [address] 09/17/2024 11:00 AM EST Laboratory Laboratory, [place] [address] [place] [phone] Frieda Singh [address] [place] [address] 09/22/2024 8:00 AM EST Laboratory Lab Mobile Phlebotomy [facility] [address] [place] [address] [facility], Gml Mobile Home Draw [address] [place] [address] 09/29/2024 8:00 AM EST Laboratory Lab Mobile Phlebotomy [place] [address] [place] [address] Gl, Gml Mobile Home Draw [address] [place] [address] 10/06/2024 8:00 AM EST Laboratory Lab Mobile Phlebotomy [place] [address] [place] [address] Gl, Gml Mobile Home Draw [address] [place] [address] 10/13/2024 8:00 AM EDT Laboratory Lab Mobile Phlebotomy [facility] [address] [place] [address] Gl, Gml Mobile Home Draw [address] [place] [address] 10/20/2024 8:00 AM EDT Laboratory Lab Mobile Phlebotomy [facility] [address] [place] [address] Gl, Gml Mobile Home Draw [address] [place] [address] 10/27/2024 8:00 AM EDT Laboratory Lab Mobile Phlebotomy [facility] [address] [place] [address] Gl, Gml Mobile Home Draw [address] [place] [address] 11/03/2024 8:00 AM EDT Laboratory Lab Mobile Phlebotomy [facility] [address] [place] [address] Gl, Gml Mobile Home Draw [address] [place] [address] 11/03/2024 12:30 PM EDT Office Visit Gastroenterology, [facility] 310 [facility], [place] [phone] Gisel Patel, COURIER DRIVER [address] [place] [address] 11/03/2024 3:00 PM EDT Office Visit Cardiology, [place] 400 [facility], [place] [address] Stephanie Ramos PA-C 400 [facility] [address] 11/10/2024 8:00 AM EDT Laboratory Lab Mobile Phlebotomy [facility] [address] [facility] [address] [facility] Mobile Home Draw 400 [facility] [address] 11/16/2024 1:00 PM EDT Office Visit Podiatry, [facility] 400 [facility], [place] [address] Sydney Castelan, DP 400 [facility] [address] 11/17/2024 8:00 AM EDT Laboratory Lab Mobile Phlebotomy [facility] [address] [facility] [address] [facility], Gm Mobile Home Draw [address] [facility] [address] 11/24/2024 8:00 AM EDT Laboratory Lab Mobile Phlebotomy [facility] 400 [facility] [address] [facility], [facility] Mobile Home Draw [address] [place] [address] 12/01/2024 8:00 AM EDT Laboratory Lab Mobile Phlebotomy [address] [address] [facility] Mobile Home Draw [address] [place] [address] 12/07/2024 1:30 PM EDT Nurse Only Rheumatology, [address] [address] [place] Nurse Rheumatology [address] [place] [address] 12/31/2024 1:00 PM EDT Cardiac Studies Cardiology, [address] [address] [place], Pacer Clinic [address] [place] [address] 02/04/2025 12:00 PM EDT Home Visit Care at Home [address] [place] [address] Carol Mathew PA-C [address] [place] [address] 06/14/2025 2:00 PM EST Office Visit Rheumatology, [address] [address] Monster Jackman, PA-C [address] [place] [address] Scheduled Procedures Name Priority Associated Diagnoses Date/Ti me ESOPHAGOGASTRODUODENOSCOPY ( EGD), FLEXIBLE, TRANSORAL, ENDOSCOPIC ULTRASOUND Recall Pancreatic cyst Scheduled Referrals Name Type Priority Associated Diagnoses Orde r Schedule HOME PHLEBOTOMY REFERRAL OP Referral Within 24 hrs (call dept; emergent) [facility] current use of anticoagulant therapy 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) Recurrent cystitis Ordered: 08/17/2024 Health Maintenance Due Date Last Done Comments Diabetic Foot Exam 1953 Zoster Vaccines (2 of 3) 12/24/2011 10/29/2011 DTap/Tdap Vaccines (2 - Td or Tdap) 10/03/2022 10/03/2012, 07/04/2005, 08/22/1992 COVID-19 Vaccine (3 - season) 2024 10/26/2020, 09/30/2020 Diabetic Eye Exam 06/19/2024 06/19/2023, , 01/12/2019, Additional history exists CKD PHOS USE SMARTSET 22088 08/22/202408/05, 08/20/2023, 11/07/2022, Additional history exists HbA1c 10/14/2024 04/16/2024, 12/0 12/2022, 04/01/2023 Albumin/Creatinine Ratio 12/05/2024 12/06/2023, [address]803/2023 Adult Wellness Visit 02/03/2025 02/04/2024, 02/29/20 23 Depression Screening 02/03/2025 02/04/2024, 12/10/19 24 DXA Scan 04/22/2025 04/22/2023, 04/05, 12/25/2018, Additional history exists CKD HGB USE SMARTSET 22572 05/06/202505/06, 05/06/2024, 03/02/2024, Additional history exists Pneumococcal Vaccine: 50+ Years Completed 02/01/2016, 10/27/2002 VITAMIN D LEVEL ONCE IN A LIFETIME-USE SMARTSET# 59713 Completed 04/16/2024, 09/16/2023, 10/20/2019, Additional history exists [...] this encounter Medical Devices Implanted Type Area Jacker Feeder Device Identifier Shelf Expiration Date Model / Serial / Lot Implant System, Trim-It Drill Pin [id number]" X 4" Implanted:Qty: 1 on 10/10/2017 by Sydney Castelan DPM at OR [facility] Right: Toe 04/04/2019 AR-[id number] / / [id number] Medtronic Attesta Surescan Pacemaker Implanted:Qty: 1 on 06/09/2020 by Chanel Lin DO at OR [facility] Left: Chest 08/01/2021 ATSR01 / [id number] / Nail [id number] Left [id number] - [id number] Implanted:Qty: 1 on 01/20/2021 by Alli Townsend MD at OR [facility] Left: Hip MILAN : TRAUMA 12/03/2023 3525-034 0S / / [id number] Screw Lag 10.5x95mm - [id number] Implanted:Qty: 1 on 01/20/2021 by Alli Townsend MD at OR [facility] Left: Hip MILAN : TRAUMA 11/02/2025 3060-009 5S / / [id number] Screw T2 Alpha Lock 5x47.5mm - [id number] Implanted:Qty: 1 on 01/20/2021 by Alli Townsend MD at OR [facility] Left: Hip MILAN : TRAUMA 05/04/2029 2360-504 7S / / [id number] documented as of this encounter Visit Diagnoses [...] kidney disease, unspecified CKD stage, unspecified whether fpc insulin use (HCC) Aortic calcification (HCC) Atherosclerosis [...] of left buttock, stage 2 (HCC)- 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- Primary 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
--- OUTSIDE RECORDS SUMMARY | 2024-08-18 16:09 | External Medical Summary | Summary of Care ---
Author Name Unknown Organization [facility] Address [address] [place] [address] Phone [phone] Care Team Providers Care Waybill Clerk Name Role Phone Amor Pate MD Primary Care Provider +1 -[phone] Reason for Visit * Reason Comments Dosage Adjustment Via Phone (anticoag Cl inic) Encounter Details Date Type Department Care Team (Late st Contact Info) Description 08/07/2024 6:00 AM EST Anticoagulation Centralized Clinical Pharmacy Services, [facility] Corrie [address] [place] [address] [place] Rosenbaum [address] [place] Schmidt [address] 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 30 Tablet 3 Active Additional Information Patient taking differently:2 Tablet Oral DAILY PRN, Constipation,Pt taking 1 every evening and additional 1 if needed, Reported on 06/12/2024 Ferrous Sulfate 325 (65 Fe) MG Oral Tablet (Feosol)Indicatio ns:Other iron deficiency anemias Take 1 tab Saturday and Thursdays only. 8 Tablet 3 Active Acetaminophen 325 [...] morning. 45 Tablet 3 4 Active Nystatin 105386 UNIT/GM External CreamIndications: Candidal intertrigo Apply topically [...] as of this encounter (statuses as of 08/07/2024) Active Problems Problem Noted Date Diagnosed Date [...] multicystic lesion of the pancreas CEA, FLUID 98385.0 ng/mL Final COMMENT Final The reference range [...] Plan (12/08/2021 5:25 PM EDT): S/p pacemaker [facility] current use of anticoagulant therapy 0 08/28/2010 [...] patient does not have a Power of Clinical Lab Clerk or Advanced Directives in place at this [...] as of this encounter (statuses as of 08/07/2024) Resolved Problems Problem Noted Date Diagnosed Date [...] 02/04/2024 Overview (10/12/2019): Hemoglobin Results: HGB(g/dL) Rd Dt/Kyrie Resulted Value Status 06/29/19 2:26P 06/29/19 10.5* [...] as of this encounter (statuses as of 08/07/2024) Immunizations Name Administration Dates Next Due COVID-19 [...] documented in this encounter Progress Notes * Minerva Cuevas, [facility] - 08/07/2024 2:20 PM EST Contacts Contact Date/Time Type Contact Phone/Fax 08/07/2024 02:15 PM EST Phone (Outgoing) Zulma Villar (Self) [phone] (H) No Answer/Busy - no id on vm 08/07/2024 02:16 PM EST Phone (Outgoing) Zulma Villar (Self) [phone] (M) No Answer/Busy - VM not set up 08/07/2024 02:20 PM EST Phone (Incoming) Zulma Villar (Self) [phone] (H) Subjective Patient Findings Negatives: Signs/symptoms of thrombosis, Signs/symptoms of bleeding, Change in health, Change in alcohol use, Change in activity, Upcoming invasive procedure, Missed doses, Extra doses, Change in medications, Change in diet/appetite, Bruising Advised patient to contact Anticoagulation Clinic if any unusual bruising or bleeding, recent illness, changes in medication, or questions/concerns. PT/INR results, Coumadin dose instructions, and next PT/INR date communicated as noted by Pharmacist: Yes MINERVA CUEVAS CPhT 08/07/2024, 2:20 PM * Kadie Byers RPh - 08/07/2024 8:05 AM EST Coumadin Clinic (region specific) Objective Current Warfarin Dose As of 08/07/2024 Warfarin maintenance plan: 4 mg (2 mg x 2) every Mon, Fri; 2 mg (2 mg x 1) all other days INR Result As of 08/07/2024 INR goal: 2.0-3.0 INR used for dosin.7 (08/06/2024) Assessment & Plan Warfarin Plan As of 08/07/2024 Full warfarin instructions: 4 mg every Mon, Fri; 2 mg all other days No change documented: Kadie Byers RPh Next INR check: 08/20/2024 Repeat PT/INR in 2 week(s) Weekly dose: not changed Additional Dosing Information: Description [facility] Lorraine Singh fax [phone] Boost- 1/day Tech to contact patient with dose instructions as noted. Kadie Byers RPh 08/07/2024, 8:05 AM documented in this encounter Plan of Treatment Upcoming Encounters Date Type Department Care Team (Late st Contact Info) Description 08/18/2024 3:30 PM EST Office Visit Otolaryngology, [place] Polanco [address] [place] [address] Hema Hercules PA-C [address] [place] [address] 08/20/2024 8:00 AM EST Laboratory Lab Mobile Phlebotomy [facility] [address] [place] Singh [address] Gl, [facility] Mobile Home Draw [address] [place] SINGH [address] 08/21/2024 6:00 AM EST Anticoagulation Centralized Clinical Pharmacy Services, Derrek Corrie [address] [place] [address] [place]baum [address] [place] [address] 08/26/2024 5:40 PM EST Office Visit Family Practice, [place] 21 [place] [phone] Amor Pate MD 21 [place] [address] 09/10/2024 12:50 PM EST Office Visit Dermatology, Fracnisco Caballero [address] [place] Signh [phone] Marilyn Ozuna PA-C [address] [place] [address] [address] 09/17/2024 11:00 AM EST Laboratory Laboratory, [place] 21 [place] [phone] Frieda Singh [address] [place] [address] 11/03/2024 12:30 PM EDT Office Visit Gastroenterology, [address], [place] [address] [place] [address] Gisel Patel CRNP [address] [place] [address] 11/03/2024 3:00 PM EDT Office Visit Cardiology, [address] [address] Stephanie Ramos PA-C [address] [place] [address] 12/07/2024 1:30 PM EDT Nurse Only Rheumatology, [address] [address] [place], Nurse Rheumatology [address] [place] [address] 12/31/2024 1:00 PM EDT Cardiac Studies Cardiology, [address] [address] [place], Pacer Clinic [address] [place] [address] 02/04/2025 12:00 PM EDT Home Visit Care at Home [address] [place] [address] Carol Mathew PA-C [address] [place] [address] 06/14/2025 2:00 PM EST Office Visit Rheumatology, [address] [address] Monster Jackman PA-C [address] [place] [address] Scheduled Procedures Name Priority Associated Diagnoses Date/Ti [...] Additional history exists CKD PHOS USE SMARTSET 66200 08/22/202408/05, 08/20/2023, 11/07/2022, Additional history exists HbA1c 10/14/2024 04/16/2024, 1212/2022, 04/01/2023 Albumin/Creatinine Ratio 12/05/2024 12/06/2023, 0803/2023 Adult Wellness Visit 02/03/2025 02/04/2024, 02/29/20 23 Depression Screening 02/03/2025 02/04/2024, 12/10/19 24 DXA Scan 04/22/2025 04/22/2023, 04/05, 12/25/2018, Additional history exists CKD HGB USE SMARTSET 87062 05/06/202505/06, 05/06/2024, 03/02/2024, Additional history exists Pneumococcal Vaccine: 50+ Years Completed 02/01/2016, 10/27/2002 VITAMIN D LEVEL ONCE IN A LIFETIME-USE SMARTSET# 29332 Completed 04/16/2024, 09/16/2023, 10/20/2019, Additional history exists [...] this encounter Medical Devices Implanted Type Area Mass Communications Professor Device Identifier Shelf Expiration Date Model / Serial / Lot Implant System, Trim-It Drill Pin [id number]" X 4" Implanted:Qty: 1 on 10/10/2017 by Sydney Castelan DPM at [facility] Right: Toe 04/04/2019 AR-4152DS / / [id number] Medtronic Attesta Surescan Pacemaker Implanted:Qty: 1 on 06/09/2020 by Chanel Lin DO at [facility] Left: Chest 08/01/2021 ATSR01 / [id number] / Nail [id number] Left [id number] - [id number] Implanted:Qty: 1 on 01/20/2021 by Alli Townsend MD at [facility] Left: Hip MILAN : TRAUMA 12/03/2023 3525-034 0S / / [id number] Screw Lag 10.5x95mm - [id number] Implanted:Qty: 1 on 01/20/2021 by Alli Townsend MD at [facility] Left: Hip MILAN : TRAUMA 11/02/2025 3060-009 5S / / [id number] Screw T2 Alpha Lock 5x47.5mm - [id number] Implanted:Qty: 1 on 01/20/2021 by Alli Townsend MD at [facility] Left: Hip MILAN : TRAUMA 05/04/2029 2360-504 7S / / [id number] documented as of this encounter Visit Diagnoses [...] kidney disease, unspecified CKD stage, unspecified whether truck terminal manager insulin use (HCC) Aortic calcification (HCC) Atherosclerosis [...] of left buttock, stage 2 (HCC)- Primary [facility] current use of anticoagulant therapy- Primary documented in this encounter Advance Directives Documents on File Type Date Recorded Patient Director Independent Expl anation POLST 07/15/2023 [place] [facility] FOR LIFE-SUSTAINING TREATMENT * Full Code [...] First Alternate Health Care Agent Care Teams Waybill Clerk Relationship Specialty Start Date End Date Amor Pate MD 21 [place] [address] [phone] PCP - General Family Medicine 12/06/22 documented as of this encounter
--- OUTSIDE RECORDS SUMMARY | 2024-08-18 16:09 | External Medical Summary | Summary of Care ---
Author Name Unknown Organization [facility] Address [address] [place] [address] Phone [phone] Care Team Providers Care Director Of Patient Financial Services Name Role Phone Amor Pate MD Primary Care Provider +1 -[phone] Reason for Visit * Reason Onset Date Comments Home Health 05/05/2024 Encounter Details Date Type Department Care Team (Late st Contact Info) Description 05/05/2024 Telephone [facility] [address] [place] [address] Amor Pate MD [address] [place] [address] Home Health Allergies No known active allergiesdocumented as of this encounter (statuses as of 08/04/2024) Medications Sennosides 8.6 MG Oral Tablet (Senokot) [...] morning. 45 Tablet 3 4 Active Nystatin 439667 UNIT/GM External CreamIndications: Candidal intertrigo Apply topically [...] [facility] 90 Tablet 1 4 Active documented as of this encounter (statuses as of 08/04/2024) Active Problems Problem Noted Date Diagnosed Date [...] multicystic lesion of the pancreas CEA, FLUID 80526.0 ng/mL Final COMMENT Final The reference range [...] Plan (12/08/2021 5:25 PM EDT): S/p pacemaker [facility] current use of anticoagulant therapy 0 08/28/2010 [...] patient does not have a Power of Resaw Feeder or Advanced Directives in place at this [...] as of this encounter (statuses as of 08/04/2024) Resolved Problems Problem Noted Date Diagnosed Date [...] at this time. Family is paying for 24/7 caregivers, although having some issues with no [...] & Plan (12/04/2022 10:54 AM EDT): PCP kyra pierce Has home health SN Seeing wound clinic [...] D and rechk 3 years. 07/18/2006 continues Jakub ELKINS on Actonel but chg to [facility] due [...] as of this encounter (statuses as of 08/04/2024) Immunizations Name Administration Dates Next Due COVID-19 [...] encounter Miscellaneous Notes * Telephone Encounter - Marion Gamez LPN - 05/05/2024 2:36 PM EDT Admission/Start of Care Admission/Start of Care: [facility], Calling from: [facility] ordered by: [facility] for wound care Referral received for: Assisted Planned start of care date:Yes, Date with 48 hours They will call with any updates or additional concerns from the upcoming HH visit. Last Office Visit: 12/10/2023 Advised that orders will be signed by PCP and to fax to the office for signature. documented in this encounter Plan of Treatment Upcoming Encounters Date Type Department Care Team (Late st Contact Info) Description 08/06/2024 8:00 AM EST Laboratory Lab Mobile Phlebotomy [facility] [address] [place] [address] [facility] Mobile Home Draw [address] [place] [address] 08/07/2024 6:00 AM EST Anticoagulation Centralized Clinical Pharmacy Services, Derrek Denton [address] [place] [address] [place] Rosenbaum [address] [facility] [place] [address] 08/18/2024 3:30 PM EST Office Visit Otolaryngology, Adwoa Lozada [place] [address] [place] [address] Hema Hercules PA-C [address] [place] [address] 08/26/2024 5:40 PM EST Office Visit Family Practice, [place] [address] [place] [phone] Amor Pate MD [address] [place] [address] 09/10/2024 12:50 PM EST Office Visit Dermatology, Adwoa Green [place] [address] [place] [address] Marilyn Ozuna PA-C [address] [place] [address] 09/17/2024 11:00 AM EST Laboratory Laboratory, [place] [address] [place] [phone] Francisco [facility] [place] [address] 11/03/2024 12:30 PM EDT [facility] [address] [place] Singh [phone] Gisel Patel CRNP 132 [facility] [place] [address] 11/03/2024 3:00 PM EDT Office Visit Cardiology, [address] [address] Stephanie Ramos PA-C [address] [place] [address] 12/07/2024 1:30 PM EDT Nurse Only Rheumatology, [address] [address] [place], Nurse Rheumatology [address] [place] [address] 12/31/2024 1:00 PM EDT Cardiac Studies Cardiology, [address] [address] [place], Pacer Clinic [address] [place] [address] 02/04/2025 12:00 PM EDT Home Visit Care at Home [address] [place] [address] Carol Mathew PA-C [address] [place] [address] 06/14/2025 2:00 PM EST Office Visit Rheumatology, [address] [address] Monster Jackman, PA-C [address] [facility] [place] [address] Scheduled Procedures Name Priority Associated Diagnoses Date/Ti [...] Additional history exists CKD PHOS USE SMARTSET 17040 08/22/202408/05, 08/20/2023, 11/07/2022, Additional history exists HbA1c 10/14/2024 04/16/2024, 1212/2022, 04/01/2023 Albumin/Creatinine Ratio 12/05/2024 12/06/2023, [address]803/[address]23 Adult Wellness Visit 02/03/2025 02/04/2024, 02/29/20 23 Depression Screening 02/03/2025 02/04/2024, 12/10/19 24 DXA Scan 04/22/2025 04/22/2023, 04/05, 12/25/2018, Additional history exists CKD HGB USE SMARTSET 54135 05/06/202505/06, 05/06/2024, 03/02/2024, Additional history exists Pneumococcal Vaccine: 50+ Years Completed 02/01/2016, 10/27/2002 VITAMIN D LEVEL ONCE IN A LIFETIME-USE SMARTSET# 87440 Completed 04/16/2024, 09/16/2023, 10/20/2019, Additional history exists [...] this encounter Medical Devices Implanted Type Area Pulmonary Care Nurse Device Identifier Shelf Expiration Date Model / Serial / Lot Implant System, Trim-It Drill Pin [id number](.078" X 4" Implanted:Qty: 1 on 10/10/2017 by Sydnye Castelan DPM at [facility] Right: Toe 04/04/2019 AR-4152DS / / [id number] Medtronic Attesta Surescan Pacemaker Implanted:Qty: 1 on 06/09/2020 by Chanel Lin DO at [facility] Left: Chest 08/01/2021 ATSR01 / [id number] / Nail Gamma3 Left [id number] - [id number] Implanted:Qty: 1 on 01/20/2021 by Alli Townsend MD at [facility] Left: Hip MILAN : TRAUMA 12/03/2023 3525-034 0S / / [id number] Screw Lag 10.5x95mm - [id number] Implanted:Qty: 1 on 01/20/2021 by Alli Townsend MD at [facility] Left: Hip MILAN : TRAUMA 11/02/2025 3060-009 5S / / [id number] Screw T2 Alpha Lock 5x47.5mm - [id number] Implanted:Qty: 1 on 01/20/2021 by Alli Townsend MD at [facility] Left: Hip MILAN : TRAUMA 05/04/2029 2360-504 7S / / [id number] documented as of this encounter Advance Directives Documents on File Type Date Recorded Patient Unit Coordinator Expl anation POLST 07/15/2023 [place] [facility] FOR LIFE-SUSTAINING TREATMENT * Full [...] Spouse First Alternate Health Care Agent Alondra Olaf Adult Child First Alternate Health Care Agent Care Teams Director Of Patient Financial Services Relationship Specialty Start Date End Date Amor Pate MD [address] [place] [address] PCP - General Family Medicine 12/06/22 documented as of this encounter
--- OUTSIDE RECORDS SUMMARY | 2024-08-18 16:10 | External Medical Summary | Summary of Care ---
Author Name Unknown Organization [facility] Address [address] [place] [address] Phone [phone] Care Team Providers Care Cap And Hat Production Supervisor Name Role Phone Amor Pate MD Primary Care Provider +1 -[phone] Reason for Visit * Reason Comments Dosage Adjustment Via Phone (anticoag Cl inic) Encounter Details Date Type Department Care Team (Late st Contact Info) Description 07/31/2024 6:00 AM EST Anticoagulation Centralized Clinical Pharmacy Services, [facility] Corrie [address] [place] [address] [place] Rosenbaum [address] [place] Schmidt [address] group home current use of anticoagulant therapy* Allergies No known active allergiesdocumented as of this encounter (statuses as of 07/31/2024) Medications Sennosides 8.6 MG Oral Tablet (Senokot) [...] morning. 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 (H) Spoke to Patient Subjective Patient Findings Negatives: Signs/symptoms of bleeding, Change in health, Change in activity, Upcoming invasive procedure, Missed doses, Extra doses, Change in medications, Change in diet/appetite, Bruising Advised patient to contact Anticoagulation Clinic if any unusual bruising or bleeding, recent illness, changes in medication, or questions/concerns. PT/INR results, Coumadin dose instructions, and next PT/INR date communicated as noted by Pharmacist: Yes Marilyn Kulkarni CPhT 07/31/2024, 9:12 AM * Alva Dominguez RPh - 07/31/2024 8:45 AM EST Coumadin Clinic (region specific) Objective Current Warfarin Dose As of 07/31/2024 Warfarin maintenance plan: 4 mg (2 mg x 2) every Mon, Fri; 2 mg (2 mg x 1) all other days INR Result As of 07/31/2024 INR goal: 2.0-3.0 INR used for dosin.1 (07/30/2024) Assessment & Plan Warfarin Plan As of 07/31/2024 Full warfarin instructions: 4 mg every Mon, Fri; 2 mg all other days No change documented: Alva Dominguez RPh Next INR check: 08/06/2024 Repeat PT/INR in 1 week(s) Weekly dose: not changed Additional Dosing Information: Description [facility] Lorraine Singh fax [phone] Boost- 1/day Tech to contact patient with dose instructions as noted. Alva Dominguez RPh 07/31/2024, 8:45 AM documented in this encounter Plan of Treatment Upcoming Encounters Date Type Department Care Team (Late st Contact Info) Description 08/07/2024 6:00 AM EST Anticoagulation Centralized Clinical Pharmacy Services, Derrek Denton [address] [place] [address] [place] Rosenbaum [address] [place] [address] 08/18/2024 3:30 PM EST Office Visit Otolaryngology, [place] Pol[place] [address] [place]re [address] Hema Hercules PA-C [address] [place] [address] 08/26/2024 5:40 PM EST Office Visit [facility], [place] 21 [facility] Neville ShethwFR[place] cheng [phone] Amor Pate MD 21 [facility] [address] 09/10/2024 12:50 PM EST Office Visit Dermatology, Adwoa Green [place] 27 [address] [facility] 140 [place] [address] Marilyn Ozuna PA-C [address] [place] [address] 09/17/2024 11:00 AM EST Laboratory Laboratory, [place] 21 [facility] Peter ShethwFRANCISCO cheng [phone] [facility] 21 [facility] [address] 11/03/2024 12:30 PM EDT Office Visit Gastroenterology, [facility] [place] [address] [place] [phone] Gisel Patel CRNP 132 [facility] [place] Jim[place]nez [address] 11/03/2024 3:00 PM EDT Office Visit Cardiology, [place] 400 [facility] [place] [address] Stephanie Ramos PA-C 400 [facility] [place] [address] 12/07/2024 1:30 PM EDT Nurse Only Rheumatology, [address] [address] [place] Nurse Rheumatology [address] [place] [address] 12/31/2024 1:00 PM EDT Cardiac Studies Cardiology, [address] [address] [place] Pacer Clinic [address] [place] [address] 02/04/2025 12:00 PM EDT Home Visit Care at Home [address] [place], [place] [phone] Carol Mathew PA-C [address] [place] [address] 06/14/2025 2:00 PM EST Office Visit Rheumatology, [address] [address] Monster Jackman PA-C 0[address] [place] [address] Scheduled Procedures Name Priority Associated Diagnoses Date/Ti me ESOPHAGOGASTRODUODENOSCOPY ( EGD), FLEXIBLE, TRANSORAL, ENDOSCOPIC ULTRASOUND Recall Pancreatic cyst Health Maintenance Due Date Last Done Comments Diabetic Foot Exam 1953 Zoster Vaccines (2 of 3) 12/24/2011 10/29/2011 DTap/Tdap Vaccines (2 - Td or Tdap) 10/03/2022 10/03/2012, 07/04/2005, 08/22/1992 COVID-19 Vaccine (3 - 2023- season) 2024 10/26/2020, 09/30/2020 Diabetic Eye Exam 06/19/2024 06/19/2023, , 01/12/2019, Additional history exists CKD PHOS USE SMARTSET 60528 08/22/202408/05, 08/20/2023, 11/07/2022, Additional history exists HbA1c 10/14/2024 04/16/2024, 1212/2022, 04/01/2023 Albumin/Creatinine Ratio 12/05/2024 12/06/2023, 08/03/2023 Adult Wellness Visit 02/03/2025 02/04/2024, 02/29/20 23 Depression Screening 02/03/2025 02/04/2024, 12/10/19 24 DXA Scan 04/22/2025 04/22/2023, 04/05, 12/25/2018, Additional history exists CKD HGB USE SMARTSET 67751 05/06/202505/06, 05/06/2024, 03/02/2024, Additional history exists Pneumococcal Vaccine: 50+ Years Completed 02/01/2016, 10/27/2002 VITAMIN D LEVEL ONCE IN A LIFETIME-USE SMARTSET# 78914 Completed 04/16/2024, 09/16/2023, 10/20/2019, Additional history exists [...] this encounter Medical Devices Implanted Type Area Binder Technician Device Identifier Shelf Expiration Date Model / Serial / Lot Implant System, Trim-It Drill Pin [id number](.078" X 4" Implanted:Qty: 1 on 10/10/2017 by Sydney Castelan DPM at [facility] Right: Toe 04/04/2019 AR-4152DS / / [id number] Atsr01 Medtronic Attesta Surescan Pacemaker Implanted:Qty: 1 on 06/09/2020 by Chanel Lin DO at [facility] Left: Chest 08/01/2021 ATSR01 / [id number] / Nail Gamma3 Left [id number] - [id number] Implanted:Qty: 1 on 01/20/2021 by Alli Townsend MD at [facility] Left: Hip MILAN : TRAUMA 12/03/2023 3525-034 0S / / [id number] Screw Lag 10.5x95mm - [id number] Implanted:Qty: 1 on 01/20/2021 by Alli Townsend MD at [facility] Left: Hip MILAN : TRAUMA 11/02/2025 3060-009 5S / / [id number] Screw T2 Alpha Lock 5x47.5mm - [id number] Implanted:Qty: 1 on 01/20/2021 by Alli Townsend MD at [facility] Left: Hip MILAN : TRAUMA 05/04/2029 2360-504 7S / / [id number] documented as of this encounter Visit Diagnoses [...] kidney disease, unspecified CKD stage, unspecified whether biology tutor insulin use (HCC) Aortic calcification (HCC) Atherosclerosis [...] of left buttock, stage 2 (HCC)- Primary group home current use of anticoagulant therapy- Primary documented in this encounter Advance Directives Documents on File Type Date Recorded Patient Baseball Glove Shaper Expl anation POLST 07/15/2023 [place] [facility] FOR LIFE-SUSTAINING TREATMENT * Full Code (Latest [...] First Alternate Health Care Agent Care Teams Cap And Hat Production Supervisor Relationship Specialty Start Date End Date Amor Pate MD 21 [facility] [place] [address] PCP - General Family Medicine 12/06/22 documented as of this encounter
--- OUTSIDE RECORDS SUMMARY | 2024-08-18 16:10 | External Medical Summary ---
Author Name Unknown Address Unknown Organization K1F:LABORATORY [facility] - [address] [address] Laboratory Report Ordering Provider Test Date Status ANDREW HOOVER 07/22/2024 11:31:06 Final Please draw PT/INR every 1-4 weeks or as requested by the [facility]

Warfarin Therapy
INR: 2.0-3.0 conventional anticoagulation
INR: 2.5-3.5 high intensity anticoagulation Observation Date Value Abnormality Reference (Units ) Status PT 07/22/2024 11:31:06 14.6 11.6-15.2 (seconds) Final INR 07/22/2024 11:31:06 1.1 0.8-1.2 Final Performing Location LABORATORY [facility] - [address] [address]
--- OUTSIDE RECORDS SUMMARY | 2024-08-18 16:10 | External Medical Summary | Summary of Care ---
Author Name Unknown Organization [facility] Address [address] [place] [address] Phone [phone] Care Team Providers Care Production Line Name Role Phone Amor Pate MD Primary Care Provider +1 [phone] Reason for Visit * Reason Comments Dosage Adjustment Via Phone (anticoag Cl inic) Encounter Details Date Type Department Care Team (Late st Contact Info) Description 07/22/2024 6:00 PM EST Anticoagulation Centralized Clinical Pharmacy Services, [facility] [place] [address] [place] [address] [place] [address] [place] [address] longterm current use of anticoagulant therapy* Allergies No known active allergiesdocumented as of this encounter (statuses as of 07/22/2024) Medications Sennosides 8.6 MG Oral Tablet (Senokot) [...] morning. 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 Srtoud next month. 12/2018 DEXA The fracture risk [...] as of this encounter (statuses as of 07/22/2024) Immunizations Name Administration Dates Next Due COVID-19 [...] documented in this encounter Progress Notes * Nena Hopkins, [facility] - 07/22/2024 1:51 PM EST Images from the original note were not included. Medication Therapy Disease Management - Anticoagulation Patient: Zulma M Aurea | : 1935 Subjective Contacts Contact Date/Time Type Contact Phone/Fax 07/22/2024 02:20 PM EST Phone (Outgoing) Zulma Villar (Self) [phone] (H) Patient-Reported Symptoms: Patient Findings Negatives: Signs/symptoms of bleeding, Change in health, Missed doses, Extra doses, Change in medications, Change in diet/appetite, Bruising Comments: There is some documentation in the chart that patient is receiving hospice level care. I do not see any documentation of warfarin discontinuation. Pt confirms she is still taking warfarin. Objective Current Warfarin Dose As of 07/22/2024 Warfarin maintenance plan: 4 mg (2 mg x 2) every Fri; 2 mg (2 mg x 1) all other days INR Result As of 07/22/2024 INR goal: 2.0-3.0 INR used for dosin.1 (07/22/2024) Assessment & Plan Warfarin Plan As of 07/22/2024 Full warfarin instructions: 07/22: 4 mg; Otherwise 4 mg every Mon, Fri; 2 mg all other days Next INR check: 07/30/2024 Repeat PT/INR in 1 week(s) Weekly dose: increased Additional Dosing Information: Description [facility] M-El Singh fax [phone] Boost- 1/day Nena Hopkins RP Clinical Pharmacist 07/22/2024, 1:57 PM documented in this encounter Plan of Treatment Upcoming Encounters Date Type Department Care Team (Late st Contact Info) Description 08/18/2024 3:30 PM EST Office Visit OtolaryngologyAdwoa [place] 27 [place] [phone] Hema Hercules PA-C 27 [place] [address] [address] 08/26/2024 5:40 PM EST Office Visit Family Francisco Ac 21 [place] [phone] Amor Pate MD 21 [place] [address] [address] 09/10/2024 12:50 PM EST Office Visit DermatologyAdwoa [place] 27 [address] [place] [facility] 140 [place] [phone] Marilyn Ozuna PA-C [address] [facility] [place] [address] 09/17/2024 11:00 AM EST Laboratory Laboratory, [place] 21 [facility] [place] [phone] [facility] 21 [place] [address] 11/03/2024 12:30 PM EDT Office Visit Gastroenterology, [facility] [address] [place] [phone] Gisel Patel CRNP [address] [place] [address] 11/03/2024 3:00 PM EDT Office Visit Cardiology, [address] [place] [address] Stephanie Ramos PA-C 400 [place] [address] 12/07/2024 1:30 PM EDT Nurse Only Rheumatology, [facility] 400 [place] [address] [place], Nurse Rheumatology [address] [place] [address] 12/31/2024 1:00 PM EDT Cardiac Studies Cardiology, [address] [address] [place], Pacer Clinic 400 [facility] [address] 02/04/2025 12:00 PM EDT Home Visit Care at Home [address] [facility] [place] [address] Carol Mathew PA-C [address] [facility] [place] [address] 06/14/2025 2:00 PM EST Office Visit Rheumatology, [address], [place] [address] Monster Jackman PA-C [address] [employer] [place] [address] Scheduled Procedures Name Priority Associated Diagnoses [...] Additional history exists CKD PHOS USE SMARTSET 92601 08/22/202408/05, 08/20/2023, 11/07/2022, Additional history exists HbA1c 10/14/2024 04/16/2024, 12/0 12/2022, 04/01/2023 Albumin/Creatinine Ratio 12/05/2024 12/06/2023, 03/06 Adult Wellness Visit 02/03/2025 02/04/2024, 02/29/20 23 Depression Screening 02/03/2025 02/04/2024, 12/10/19 24 DXA Scan 04/22/2025 04/22/2023, 04/05, 12/25/2018, Additional history exists CKD HGB USE SMARTSET 64486 05/06/202505/06, 05/06/2024, 03/02/2024, Additional history exists Pneumococcal Vaccine: 65+ Years Completed 02/01/2016, 10/27/2002 VITAMIN D LEVEL ONCE IN A LIFETIME-USE SMARTSET# 22555 Completed 04/16/2024, 09/16/2023, 10/20/2019, Additional history exists [...] this encounter Medical Devices Implanted Type Area Packer Fuser Device Identifier Shelf Expiration Date Model / Serial / Lot Implant System, Trim-It Drill Pin [id number](.078" X 4" Implanted:Qty: 1 on 10/10/2017 by Sydney Castelan DPM at OR [facility] Right: Toe 04/04/2019 AR-4152DS / / [id number] Medtronic Attesta Surescan Pacemaker Implanted:Qty: 1 on 06/09/2020 by Chanel Lin DO at OR [facility] Left: Chest 08/01/2021 ATSR01 / [id number] / Nail Gamma3 Left [id number] - [id number] Implanted:Qty: 1 on 01/20/2021 by Alli Townsend MD at OR [facility] Left: Hip MILAN : TRAUMA 12/03/2023 3525-034 0S / / [id number] Screw Lag 10.5x95mm - [id number] Implanted:Qty: 1 on 01/20/2021 by Alli Townsend MD at OR [facility] Left: Hip MILAN : TRAUMA 11/02/2025 3060-009 5S / / [id number] Screw T2 Alpha Lock 5x47.5mm - [id number] Implanted:Qty: 1 on 01/20/2021 by Alli Townsend MD at OR [facility] Left: Hip MILAN : TRAUMA 05/04/2029 2360-504 7S / / [id number] documented as of this encounter Visit Diagnoses [...] kidney disease, unspecified CKD stage, unspecified whether tank terminal gauger insulin use (HCC) Aortic calcification (HCC) Atherosclerosis [...] hemoglobin A1c goal of less than 7.0% ([facility])- Primary Hypertensive heart and kidney disease with [...] of left buttock, stage 2 (HCC)- Primary longterm current use of anticoagulant therapy- Primary documented in this encounter Advance Directives Documents on File Type Date Recorded Patient E Business Manager Expl anation POLST 07/15/2023 [place] OR [facility] FOR LIFE-SUSTAINING TREATMENT * [...] First Alternate Health Care Agent Care Teams Production Line Relationship Specialty Start Date End Date Amor Pate MD [address] [place] [address] [phone] PCP - General Family Medicine 12/06/22 documented as of this encounter
--- OUTSIDE RECORDS SUMMARY | 2024-08-18 16:10 | External Medical Summary ---
Author Name Unknown Address Unknown Organization K1F:LABORATORY [facility] - [facility] [place][note 2] [address] [address] Laboratory Report Ordering Provider Test Date Status ANDREW HOOVER 07/30/2024 11:35:37 Final Please draw PT/INR every 1-4 weeks or as requested by the [facility]

Warfarin Therapy
INR: 2.0-3.0 conventional anticoagulation
INR: 2.5-3.5 high intensity anticoagulation Observation Date Value Abnormality Reference (Units ) Status PT 07/30/2024 11:35:37 23.4 Above high normal 11 .6-15.2 (seconds) Final INR 07/30/2024 11:35:37 2.1 Above high normal 0. 8-1.2 Final Performing Location LABORATORY [facility] - [address] [address]
--- OUTSIDE RECORDS SUMMARY | 2024-08-18 16:10 | External Medical Summary | Summary of Care ---
Author Name Unknown Organization [facility] Address [address] [place] [address] Phone [phone] Care Team Providers Care Broom Maker Name Role Phone Amor Pate MD Primary Care Provider [phone] [phone] Reason for Visit * Reason Onset Date Comments Advice 07/10/2024 Sb Encounter Details Date Type Department Care Team (Late Contact Info) Description 07/10/2024 Telephone Hematology/Oncology, [address] [address] Billy Basurto MD 400 [place] [address] Advice (Sb) Allergies No known active allergiesdocumented as of this encounter (statuses as of 07/13/2024) Medications Sennosides 8.6 MG Oral Tablet (Senokot) [...] morning. 45 Tablet 3 4 Active Nystatin 015879 UNIT/GM External CreamIndications: Candidal intertrigo Apply topically [...] as of this encounter (statuses as of 07/13/2024) Active Problems Problem Noted Date Diagnosed Date [...] multicystic lesion of the pancreas CEA, FLUID 39244.0 ng/mL Final COMMENT Final The reference range [...] Plan (12/08/2021 5:25 PM EDT): S/p pacemaker manager long term care current use of anticoagulant therapy 0 08/28/2010 [...] patient does not have a Power of Tank Refinisher or Advanced Directives in place at this [...] as of this encounter (statuses as of 07/13/2024) Resolved Problems Problem Noted Date Diagnosed Date [...] week. Pain of right lower leg 11/03/2022 07/08/2022 Chronic diastolic (congestive) heart failure 11/28/2023 Assessment [...] as of this encounter (statuses as of 07/13/2024) Immunizations Name Administration Dates Next Due COVID-19 mRNA, LNP-s, No Pre serve, 2-Dose Series ([facility] [place]) 10/26/2020,09/30/2020 Pneumococcal Conjugate Vacc, 13 Valent (Prevnar) [...] money to buy more. Never true 06/09/20 Within the past 12 months, t he [...] encounter Miscellaneous Notes * Telephone Encounter - Kellie Ruiz LPN - 07/13/2024 1:15 PM EST Pt informed * Telephone Encounter - Kellie Ruiz LPN - 07/13/2024 1:15 PM EST Images from the original note were not included. Billy Basurto MD [facility] Hem/Onc Nurse Pool/Class4 hours ago (8:56 AM) Iron may help keep the iron levels up and may reduce fatigue and headaches from iron deficiency. Reasonable to continue for quality of life. * Telephone Encounter - Nicolette Eugene OSA - 07/10/2024 1:29 PM EST Patient is calling. She states her home hospice nurse took away her iron pills that DR Basurto prescribed twice a week. She is concerned about that and doesn't want anyone changing her stuff unless the doctor told them to do that or not. Please call her back to advise. documented in this encounter Plan of Treatment Upcoming Encounters Date Type Department Care Team (Late st Contact Info) Description 07/22/2024 8:10 AM EST Laboratory Lab Mobile Ph[facility] [address] [place] [address] [facility], [facility] Mobile Home Draw [address] [place] [address] 07/23/2024 6:00 AM EST Anticoagulation Centralized Clinical Pharmacy Services, Derrek [place] [address] [place] [address] [place] [address] [place] [address] 08/18/2024 3:30 PM EST Office Visit OtolaryngologyAdwoa [place] 27 [place] [address] [address] Hema Hercules PA-C 27 [place] [address] 08/26/2024 5:40 PM EST Office Visit Family Francisco Ac 21 [place] [phone] Amor Pate MD 21 [facility] [place] [address] 09/10/2024 12:50 PM EST Office Visit Dermatology, Adwoa [place] 27 [address]wo[address] [place] 140 [place] [address] Marilyn Ozuna PA-C 27 [place] [address] 09/17/2024 11:00 AM EST Laboratory Laboratory, [place] 21 [facility] [place] [phone] [facility] [address] 11/03/2024 12:30 PM EDT Office Visit Gastroenterology, [facility] [address] [facility] [address] Gisel Patel, [place] [address] [place] [address] 11/03/2024 3:00 PM EDT Office Visit Cardiology, [address] [place] [address] Stephanie Ramos PA-C 400 [facility] [address] 12/07/2024 1:30 PM EDT Nurse Only Rheumatology, [address] [address] [place], Nurse Rheumatology [address] [place], [place] [address] [address] 12/31/2024 1:00 PM EDT Cardiac Studies Cardiology, [address] [place] [address] [facility] 400 [facility] [place] [address] 02/04/2025 12:00 PM EDT Home Visit Care at Home 100 [address] [facility] [place] [address] Carol Mathew PA-C 100 [address] [facility] [place] [phone] 06/14/2025 2:00 PM EST Office Visit Rheumatology, [facility] 400 [facility] [place], [place] [phone] Monster Jackman PA-C [address] [employer] [place], [place] [address] Scheduled Procedures Name Priority Associated Diagnoses Date/Ti [...] Additional history exists CKD PHOS USE SMARTSET 80959 08/22/202408/05, 08/20/2023, 11/07/2022, Additional history exists HbA1c 10/14/2024 04/16/2024, 12/2022, 04/01/2023 Albumin/Creatinine Ratio 12/05/2024 12/06/2023, 03/06 Adult Wellness Visit 02/03/2025 02/04/2024, 02/29/20 23 Depression Screening 02/03/2025 02/04/2024, 12/10/19 24 DXA Scan 04/22/2025 04/22/2023, 04/05, 12/25/2018, Additional history exists CKD HGB USE SMARTSET 53137 05/06/202505/06, 05/06/2024, 03/02/2024, Additional history exists Pneumococcal Vaccine: 65+ Years Completed 02/01/2016, 10/27/2002 VITAMIN D LEVEL ONCE IN A LIFETIME-USE SMARTSET# 07307 Completed 04/16/2024, 09/16/2023, 10/20/2019, Additional history exists [...] this encounter Medical Devices Implanted Type Area Tool Pusher Device Identifier Shelf Expiration Date Model / Serial / Lot Implant System, Trim-It Drill Pin [id number](.078" X 4" Implanted:Qty: 1 on 10/10/2017 by Sydney Castelan DPM at OR [facility] Right: Toe 04/04/2019 AR-4152DS / / [id number] Atsr01 Medtronic Attesta Surescan Pacemaker Implanted:Qty: 1 on 06/09/2020 by Chanel Lin DO at OR [facility] Left: Chest 08/01/2021 ATSR01 / [id number] / Nail Gamma3 Left [id number] - [id number] Implanted:Qty: 1 on 01/20/2021 by Alli Townsend MD at OR [facility] Left: Hip MILAN : TRAUMA 12/03/2023 3525-034 0S / / [id number] Screw Lag 10.5x95mm - [id number] Implanted:Qty: 1 on 01/20/2021 by Alli Townsend MD at OR [facility] Left: Hip MILAN : TRAUMA 11/02/2025 3060-009 5S / / [id number] Screw T2 Alpha Lock 5x47.5mm - [id number] Implanted:Qty: 1 on 01/20/2021 by Alli Townsend MD at OR [facility] Left: Hip MILAN : TRAUMA 05/04/2029 2360-504 7S / / [id number] documented as of this encounter Advance Directives Documents on File Type Date Recorded Patient Supply Chain Vice President Expl anation POLST 07/15/2023 [place] OR [facility] FOR LIFE-SUSTAINING TREATMENT * Full Code (Latest [...] First Alternate Health Care Agent Care Teams Broom Maker Relationship Specialty Start Date End Date Amor Pate MD 21 [place] [address] PCP - General Family Medicine 12/06/22 documented as of this encounter
--- OUTSIDE RECORDS SUMMARY | 2024-08-18 16:10 | External Medical Summary | Summary of Care ---
Author Name Unknown Organization [facility] Address [address] [place] [address] Phone [phone] Care Team Providers Care Lead Carpenter Name Role Phone Amor Pate MD Primary Care Provider [phone] [phone] Reason for Visit * Reason Onset Date Comments Other 07/15/2024 updates Encounter Details Date Type Department Care Team (Late st Contact Info) Description 07/15/2024 Telephone Hematology/Oncology Treatment, [facility] 400 [place] [address] Billy Basurto MD 400 [place] [address] Other (updates) Allergies No known active allergiesdocumented as of this encounter (statuses as of 07/15/2024) Medications Sennosides 8.6 MG Oral Tablet (Senokot) [...] morning. 45 Tablet 3 4 Active Nystatin 568953 UNIT/GM External CreamIndications: Candidal intertrigo Apply topically [...] as of this encounter (statuses as of 07/15/2024) Active Problems Problem Noted Date Diagnosed Date [...] multicystic lesion of the pancreas CEA, FLUID 58135.0 ng/mL Final COMMENT Final The reference range [...] Plan (12/08/2021 5:25 PM EDT): S/p pacemaker jail current use of anticoagulant therapy 0 08/28/2010 [...] patient does not have a Power of Medical Transcriptionist or Advanced Directives in place at this [...] as of this encounter (statuses as of 07/15/2024) Resolved Problems Problem Noted Date Diagnosed Date [...] as of this encounter (statuses as of 07/15/2024) Immunizations Name Administration Dates Next Due COVID-19 mRNA, LNP-s, No Pre serve, 2-Dose Series (liveBooks) 10/26/2020,09/30/2020 Pneumococcal Conjugate Vacc, 13 Valent (Prevnar) [...] Telephone Encounter - Billy Basurto MD - 07/15/2024 5:17 PM EST Left messages for both the patient and her daughter, I explained that since Zulma is on hospice generally all medications are managed by them. I do not have a problem with her continuing iron and it may be beneficial to improve her quality of life. However this needs to be refilled by her hospice team. If they are refusing to do so that she really wants it I would recommend that she make an appointment with us at least once every 6 months and we can fill it but again usually hospice manages all medications and most other providers are usually canceled. Again their focus is quality of life and I do think that iron tablets could provide improved energy and mental concentration and less headaches and so they could be beneficial even in a hospice situation. I would not recommend checking any lab work while she is on the hospice program. Dr. Basurto documented in this encounter Plan of Treatment Upcoming Encounters Date Type Department Care Team (Late st Contact Info) Description 07/22/2024 8:10 AM EST Laboratory Lab Mobile Phlebotomy GL [address] [place] [address] Gl, Gml Mobile Home Draw 400 [place] [address] 07/23/2024 6:00 AM EST Anticoagulation Centralized Clinical Pharmacy Services, Derrek Denton [address] [place] [address] [place] [address] [place] [address] 08/18/2024 3:30 PM EST Office Visit OtolaryngologyAdwoa [place] 27 [place] [address] Hema Hercules PA-C 27 [place] [address] 08/26/2024 5:40 PM EST Office Visit Family Francisco Ac 21 [place] [phone] Amor Pate MD 21 [place] [address] 09/10/2024 12:50 PM EST Office Visit DermatologyAdwoa [place] 27 Adwoa Lozada [facility] 140 [place] [address] Marilyn Ozuna PA-C [address] [place] [address] 09/17/2024 11:00 AM EST Laboratory Laboratory, [place] 21 [facility] [address] [facility] 21 [place] [address] 11/03/2024 12:30 PM EDT Office Visit Gastroenterology, [facility] 310 [facility] [phone] Gisel Patel CRNP [address] [place] [address] 11/03/2024 3:00 PM EDT Office Visit Cardiology, [place] 400 [facility] [place] [address] Stephanie Ramos PA-C 400 [place] [address] 12/07/2024 1:30 PM EDT Nurse Only Rheumatology, [address] [place] [address] [place], Nurse Rheumatology [address] [place] [address] [place] [address] 12/31/2024 1:00 PM EDT Cardiac Studies Cardiology, [address] [place] [address] [place], Pacer Clinic 400 [facility] [place] [address] 02/04/2025 12:00 PM EDT Home Visit Care at Home 100 [address] [facility] [place] [address] Carol Mathew PA-C [address] [place] [address] 06/14/2025 2:00 PM EST Office Visit Rheumatology, [address] [address] Monster Jackman PA-C [address] [facility], [place] [phone] Scheduled Procedures Name Priority Associated Diagnoses Date/Ti [...] Additional history exists CKD PHOS USE SMARTSET 73234 08/22/202408/05, 08/20/2023, 11/07/2022, Additional history exists HbA1c 10/14/2024 04/16/2024, 12/12/2022, 04/01/2023 Albumin/Creatinine Ratio 12/05/2024 12/06/2023, 03/06 Adult Wellness Visit 02/03/2025 02/04/2024, 02/29/20 23 Depression Screening 02/03/2025 02/04/2024, 12/10/19 24 DXA Scan 04/22/2025 04/22/2023, 04/05, 12/25/2018, Additional history exists CKD HGB USE SMARTSET 85719 05/06/202505/06, 05/06/2024, 03/02/2024, Additional history exists Pneumococcal Vaccine: 65+ Years Completed 02/01/2016, 10/27/2002 VITAMIN D LEVEL ONCE IN A LIFETIME-USE SMARTSET# 35104 Completed 04/16/2024, 09/16/2023, 10/20/2019, Additional history exists [...] this encounter Medical Devices Implanted Type Area Communications Writer Device Identifier Shelf Expiration Date Model / Serial / Lot Implant System, Trim-It Drill Pin [id number](.078" X 4" Implanted:Qty: 1 on 10/10/2017 by Sydney Castelan DPM at OR [facility] Right: Toe 04/04/2019 AR-4152DS / / [id number] Atsr01 Medtronic Attesta Surescan Pacemaker Implanted:Qty: 1 on 06/09/2020 by Chanel Lin DO at OR [facility] Left: Chest 08/01/2021 ATSR01 / [id number] / Nail Gamma3 Left [id number] - [id number] Implanted:Qty: 1 on 01/20/2021 by Alli Townsend MD at OR [facility] Left: Hip MILAN : TRAUMA 12/03/2023 3525-034 0S / / [id number] Screw Lag 10.5x95mm - [id number] Implanted:Qty: 1 on 01/20/2021 by Alli Townsend MD at OR [facility] Left: Hip MILAN : TRAUMA 11/02/2025 3060-009 5S / / [id number] Screw T2 Alpha Lock 5x47.5mm - [id number] Implanted:Qty: 1 on 01/20/2021 by Alli Townsend MD at OR [facility] Left: Hip MILAN : TRAUMA 05/04/2029 2360-504 7S / / [id number] documented as of this encounter Advance Directives Documents on File Type Date Recorded Patient Electrocardiograph Operator Expl shasha POLST 07/15/2023 [place] OR [facility] FOR LIFE-SUSTAINING TREATMENT * Full [...] 6:49 PM 01/25/2021 7:48 PM This order reflects the patients wishes and were consensually agreed upon. Question Answer Comments Discussion of Advance Directives occurred with: Patient Healthcare Agents on File Name Relationship Healthcare Agent Relationship Communication Cody Villar Spouse First Alternate Health Care Agent Alondra Babin Adult Child First Alternate Health Care Agent Care Teams Lead Carpenter Relationship Specialty Start Date End Date Amor Pate MD 21 [place] [address] PCP - General Family Medicine 12/06/22 documented as of this encounter
--- OUTSIDE RECORDS SUMMARY | 2024-08-18 16:10 | External Medical Summary | Summary of Care ---
Author Name Unknown Organization [facility] Address [address] [place] [address] Phone [phone] Care Team Providers Care Nonprofit Manager Name Role Phone Amor Pate MD Primary Care Provider [phone] Reason for Visit * Reason Onset Date Comments Advice 07/10/2024 Rio 07/10 Encounter Details Date Type Department Care Team (Late st Contact Info) Description 07/10/2024 Telephone [facility] [address] [place] [address] Amor Pate MD [address] [place] [address] Advice (Rio 07/10) Allergies No known active allergiesdocumented as of this encounter (statuses as of 07/10/2024) Medications Sennosides 8.6 MG Oral Tablet (Senokot) Take 2 Tablets by mouth daily as needed for Constipation. 30 Tablet 07/14/20 23 Active Additional Information Patient taking differently:2 Tablet Oral DAILY PRN, Constipation,Pt taking 1 every evening and additional 1 if needed, Reported on 06/12/2024 Ferrous Sulfate 325 (65 Fe) MG Oral Tablet (Feosol)Indicatio ns:Other iron deficiency anemias Take 1 tab Saturday and only. 8 Tablet 07/14/20 23 Active Acetaminophen 325 MG Oral Tablet (Tylenol) Take 2 Tablets by mouth every 6 hours. 30 Tablet 07/14/20 23 Active Vitamin D (Cholecalciferol) 25 MCG (1000 UT) Oral Capsule Take 1 Capsule by mouth in the morning. 30 Capsule 07/14/20 23 Active Multivitamin Adults Oral Tablet Take 1 Tablet by mouth in the morning. 30 Tablet 07/14/20 23 Active Lutein 6 MG Oral Capsule Take 1 Capsule by mouth in the morning. 30 Capsule 07/14/20 23 Active DIURETIC TITRATION PLAN If no improvement on day 3, contact heart failure managing provider. 1 Each 07/14/20 Active Vitamin B-12 500 MCG Oral Tablet (vitamin B-12) Take one tab twice a week 26 Tablet 07/14/20 23 Active Biotin 1000 MCG Oral TabletIndications :Routine gynecological examination Take 1 Tablet by mouth in the morning. 30 Tablet 07/14/20 23 Active Calcium-Magnesium -Vitamin D ER 600-40-500 MG-MG-UNIT Tablet Extended Release 24 HourIndications:V itamin D deficiency,Osteop enia one daily (may use otc ) 30 Tablet 07/14/20 23 Active Folic Acid 0.8 MG Oral Capsule Take 1 Tablet by mouth in the morning. Active Metoprolol Succinate ER 25 MG Oral Tablet Extended Release 24 Hour (toPROL XL) Take 0.5 Tablets by mouth in the morning. 45 Tablet 3 12/25/19 24 Active Nystatin 412066 UNIT/GM External CreamIndications: Candidal intertrigo Apply topically to affected area 2 times a day. To affacted area for two weeks. 15 g 2 12/31/19 24 Active Omeprazole 20 MG Oral Capsule Delayed Release (PriLOSEC)Indicat ions:GERD (gastroesophageal reflux disease) Take 1 capsule by mouth in the morning 90 Capsule 01/07/20 24 Active Spironolactone 25 MG Oral Tablet (Aldactone)Indica tions:Tachy-nikki syndrome (HCC),HTN, goal below 140/90 Take 1 Tablet by mouth once a day on Saturday, Saturday, and Saturday only. 40 Tablet 3 03/16/20 24 Active Warfarin Sodium 2 MG Oral Tablet (Coumadin) TAKE 1 TO 2 TABLETS BY MOUTH IN THE EVENING DIRECTED BY COUMADIN CLINIC 90 Tablet 1 04/10/20 24 Active Sodium Hyaluronate 60 MG/3ML Intra-articular Prefilled Syringe (Durolane) Inject contents of prefilled syringe into the left knee joint once. 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 90 Tablet 3 11/19/19 24 Discontin ued(Medic ation/Dos e Changed) documented as of this encounter (statuses as of 07/10/2024) Active Problems Problem Noted Date Diagnosed Date [...] multicystic lesion of the pancreas CEA, FLUID 27398.0 ng/mL Final COMMENT Final The reference range [...] patient does not have a Power of Melt House Supervisor or Advanced Directives in place at this [...] as of this encounter (statuses as of 07/10/2024) Resolved Problems Problem Noted Date Diagnosed Date [...] week. Pain of right lower leg 11/03/2022 0708/2022 Chronic diastolic (congestive) heart failure 2 11/28/2023 [...] as of this encounter (statuses as of 07/10/2024) Immunizations Name Administration Dates Next Due COVID-19 [...] Telephone Encounter - Amor Pate MD - 07/10/2024 4:40 PM EST I am fine with her stopping lipitor at this time. * Telephone Encounter - Nicolette Eugene OSA - 07/10/2024 1:33 PM EST Patient is calling. She states her home hospice nurse took away her lipitor pills that DR Pate prescribed once a week. She is concerned about that and doesn't want anyone changing her stuff unless the doctor told them to do that or not. Please call her back to advise. documented in this encounter Plan of Treatment Upcoming Encounters Date Type Department Care Team (Late st Contact Info) Description 07/22/2024 8:10 AM EST Laboratory Lab Mobile Phlebotomy [facility] [address] [place] [address] [facility] Mobile Home Draw [address] [place] [address] 07/23/2024 6:00 AM EST Anticoagulation Centralized Clinical Pharmacy Services, Derrek Denton [address] [place] [address] [place] [address] [place] [address] 08/18/2024 3:30 PM EST Office Visit Otolaryngology, [place] Polanco [address] [place] [address] Hema Hercules PA-C [address] [place] [address] 08/26/2024 5:40 PM EST Office Visit Family Osorio, [place] [address] [place] [phone] Amor Pate MD [address] [place] [address] 09/10/2024 12:50 PM EST Office Visit Dermatology, Francisco Caballero [address] [place] [address] [place] [address] Marilyn Ozuna PA-C [address] [place] [address] 09/17/2024 11:00 AM EST Laboratory Laboratory, [place] [facility] [phone] [facility] 21 [place] [address] 11/03/2024 12:30 PM EDT Office Visit Gastroenterology, [facility] [address] [facility] [place] [facility] [place] [phone] Gisel Patel CRNP [address] [facility] [place] [address] 11/03/2024 3:00 PM EDT Office Visit Cardiology, [address] [place] [address] Stephanie Ramos PA-C 400 [place] [address] 12/07/2024 1:30 PM EDT Nurse Only Rheumatology, [address] [address] [place], Nurse Rheumatology [address] [place] [address] [place] [address] 12/31/2024 1:00 PM EDT Cardiac Studies Cardiology, [address] [place] [address] [facility] [address] [facility] [address] 02/04/2025 12:00 PM EDT Home Visit Care at Home [address] [place] [address] Carol Mathew PA-C [address] [place], [place] [phone] 06/14/2025 2:00 PM EST Office Visit Rheumatology, [facility] 400 [place] [address] Monster Jackman, AL[place] [address] [place] [address] Scheduled Procedures Name Priority Associated Diagnoses [...] Additional history exists CKD PHOS USE SMARTSET 25104 08/22/202408/05, 08/20/2023, 11/07/2022, Additional history exists HbA1c 10/14/2024 04/16/2024, 12/12/2022, 04/01/2023 Albumin/Creatinine Ratio 12/05/2024 12/06/2023, 03/06 Adult Wellness Visit 02/03/2025 02/04/2024, 02/29/20 23 Depression Screening 02/03/2025 02/04/2024, 12/10/19 24 DXA Scan 04/22/2025 04/22/2023, 04/05, 12/25/2018, Additional history exists CKD HGB USE SMARTSET 38651 05/06/202505/06, 05/06/2024, 03/02/2024, Additional history exists Pneumococcal Vaccine: 65+ Years Completed 02/01/2016, 10/27/2002 VITAMIN D LEVEL ONCE IN A LIFETIME-USE SMARTSET# 82331 Completed 04/16/2024, 09/16/2023, 10/20/2019, Additional history exists [...] this encounter Medical Devices Implanted Type Area Financial Auditor Device Identifier Shelf Expiration Date Model / Serial / Lot Implant System, Trim-It Drill Pin [id number]" X 4" Implanted:Qty: 1 on 10/10/2017 by Sydney Castelan DPM at OR [facility] Right: Toe 04/04/2019 AR-4152DS / / [id number] Medtronic Attesta Surescan Pacemaker Implanted:Qty: 1 on 06/09/2020 by Chanel Lin DO at OR [facility] Left: Chest 08/01/2021 ATSR01 / [id number] / Nail Gamma3 Left [id number] - [id number] Implanted:Qty: 1 on 01/20/2021 by Alli Townsend MD at OR [facility] Left: Hip MILAN : TRAUMA 12/03/2023 3525-034 0S / / [id number] Screw Lag 10.5x95mm - [id number] Implanted:Qty: 1 on 01/20/2021 by Alli Townsend MD at OR [facility] Left: Hip MILAN : TRAUMA 11/02/2025 3060-009 5S / / [id number] Screw T2 Alpha Lock 5x47.5mm - [id number] Implanted:Qty: 1 on 01/20/2021 by Alli Townsend MD at OR [facility] Left: Hip MILAN : TRAUMA 05/04/2029 2360-504 7S / / [id number] documented as of this encounter Advance Directives Documents on File Type Date Recorded Patient Bill Of Lading Clerk Expl shasha POL 07/15/2023 [place] OR [facility] FOR LIFE-SUSTAINING TREATMENT * [...] First Alternate Health Care Agent Care Teams Nonprofit Manager Relationship Specialty Start Date End Date Amor Pate MD [address] [place] [address] PCP - General Family Medicine 12/06/22 documented as of this encounter
--- OUTSIDE RECORDS SUMMARY | 2024-08-18 16:10 | External Medical Summary | Summary of Care ---
Author Name Unknown Organization [facility] Address [address] [place] [address] Phone [phone] Care Team Providers Care White Lead Filterer Name Role Phone Amor Pate MD Primary Care Provider [phone] Reason for Visit * Reason Onset Date Comments Advice 07/10/2024 Rio 07/10, 07/13 Encounter Details Date Type Department Care Team (Late st Contact Info) Description 07/10/2024 Telephone [facility] [address] [place] [address] Amor Pate MD [address] [place] [address] Advice ([place] 07/10, 07/13) Allergies No known active allergiesdocumented as of [...] heart failure managing provider. 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 Continue lasix 20mg daily History of fracture of left hip 07/18/2021 03/04/2023 Pressure injury of right buttock, stage 2 07/18/2021 11/23/2021 Protein-calorie malnutrition 07/18/2021 11/23/2021 Postoperative anemia due to acute blood loss 12/08/2021 Closed fracture of left hip 01/19/2021 [...] D and rechk 3 years. 07/18/2006 continues FLaurent ELKINS on Actonel but chg to [facility] [...] mRNA, LNP-s, No Pre serve, 2-Dose Series ([employer]) 10/26/2020,09/30/2020 Pneumococcal Conjugate Vacc, 13 Valent (Prevnar) [...] No 06/09/2024 Does the household have a [facility] source of income? (Household - for ages [...] encounter Miscellaneous Notes * Telephone Encounter - Josefina Azar LPN - 07/13/2024 10:36 AM EST Pt aware of below PCP message, voiced understanding. * Telephone Encounter - Amor Pate MD [...] AM EST Laboratory Lab Mobile Phlebotomy [facility] [address] [place] [address] [facility] Mobile Home Draw [address] [place] [address] 07/23/2024 6:00 AM EST Anticoagulation Centralized Clinical Pharmacy Services, Derrek Denton [address] [place] [address] [place] [address] [facility], [address] [place] [address] 08/18/2024 3:30 PM EST Office Visit Otolaryngology, [place] Polanco [address] [place] [address] Hema Hercules PA-C [address] [place] [address] 08/26/2024 5:40 PM EST Office Visit Family [facility], [place] 21 [facility] [place] [phone] Amor Pate MD 21 [facility] [place] [address] 09/10/2024 12:50 PM EST Office Visit Dermatology, [place] [address] [place] [place] [address] Marilyn Ozuna PA-C [address] [place] [address] 09/17/2024 11:00 AM EST Laboratory Laboratory, [place] 21 [facility] [place] [phone] [place], [facility] 21 [facility] [address] 11/03/2024 12:30 PM EDT Office Visit Gastroenterology, [facility] 310 [facility] [phone] Gisel Patel CRNP 132 [facility] [place] [address] 11/03/2024 3:00 PM EDT Office Visit Cardiology, [address] [place] [address] Stephanie Ramos PA-C 400 [facility] [place] [address] 12/07/2024 1:30 PM EDT Nurse Only Rheumatology, [address] [place] [address] [place], Nurse Rheumatology [address] [place] [address] 12/31/2024 1:00 PM EDT Cardiac Studies Cardiology, [address] [address] [place], [facility] [address] [place] [address] 02/04/2025 12:00 PM EDT Home Visit Care at Home [address] [place] [address] Carol Mathew PA-C [address] [place], [place] [phone] 06/14/2025 2:00 PM EST Office Visit Rheumatology, [facility] [address] [place] [address] Monster Jackman, PAVonda [address] [place] [address] Scheduled Procedures Name Priority Associated Diagnoses Date/Ti [...] Additional history exists CKD PHOS USE SMARTSET 86299 08/22/202408/05, 08/20/2023, 11/07/2022, Additional history exists HbA1c 10/14/2024 04/16/2024, 1212/2022, 04/01/2023 Albumin/Creatinine Ratio 12/05/2024 12/06/2023, 03/06 Adult Wellness Visit 02/03/2025 02/04/2024, 02/29/20 23 Depression Screening 02/03/2025 02/04/2024, 12/10/19 24 DXA Scan 04/22/2025 04/22/2023, 04/05, 12/25/2018, Additional history exists CKD HGB USE SMARTSET 69348 05/06/202505/06, 05/06/2024, 03/02/2024, Additional history exists Pneumococcal Vaccine: 65+ Years Completed 02/01/2016, 10/27/2002 VITAMIN D LEVEL ONCE IN A LIFETIME-USE SMARTSET# 16019 Completed 04/16/2024, 09/16/2023, 10/20/2019, Additional history exists [...] this encounter Medical Devices Implanted Type Area Healthcare Architect Device Identifier Shelf Expiration Date Model / Serial / Lot Implant System, Trim-It Drill Pin [id number]" X 4" Implanted:Qty: 1 on 10/10/2017 by Sydney Castelan DPM at OR [facility] Right: Toe 04/04/2019 AR-4152DS / / [id number] Medtronic Attesta Surescan Pacemaker Implanted:Qty: 1 on 06/09/2020 by Chanel Lin DO at OR [facility] Left: Chest 08/01/2021 ATSR01 / [id number] / Nail Gamma3 Left [id number] - [id number] Implanted:Qty: 1 on 01/20/2021 by Alli Townsend MD at OR [facility] Left: Hip MILAN : TRAUMA 12/03/2023 3525-034 0S / / [id number] Screw Lag 10.5x95mm - [id number] Implanted:Qty: 1 on 01/20/2021 by Alli Townsend MD at OR [facility] Left: Hip MILAN : TRAUMA 11/02/2025 3060-009 5S / / [id number] Screw T2 Alpha Lock 5x47.5mm - [id number] Implanted:Qty: 1 on 01/20/2021 by Alli Townsend MD at OR [facility] Left: Hip MILAN : TRAUMA 05/04/2029 2360-504 7S / / [id number] documented as of this encounter Advance Directives Documents on File Type Date Recorded Patient Cook Helper Expl anation POLST 07/15/2023 [place] [facility] FOR LIFE-SUSTAINING TREATMENT [...] First Alternate Health Care Agent Care Teams White Lead Filterer Relationship Specialty Start Date End Date Amor Pate MD [address] [place] [phone] PCP - General Family Medicine 12/06/22 documented as of this encounter
--- OUTSIDE RECORDS SUMMARY | 2024-08-18 16:11 | External Medical Summary | Summary of Care ---
Author Name Unknown Organization [facility] Address [address] [place] [address] Phone [phone] Care Team Providers Care Email Marketing Processor Name Role Phone Carlos Alberto Murrieta MD Primary Care Provider [phone] Reason for Visit * Reason Comments eRx-Medication Refill Encounter Details Date Type Department Care Team (Late st Contact Info) Description 06/28/2024 Refill [facility], [facility] [address] [facility] [place] [address] Kayla Thompson CRNP [address] [facility] [place] [address] Allergies No known active allergiesdocumented as of this encounter (statuses as of 06/30/2024) Medications Sennosides 8.6 MG Oral Tablet (Senokot) Take 2 Tablets by mouth daily as needed for Constipation. 30 Tablet 07/14/20 23 Active Additional Information Patient taking differently:2 Tablet Oral DAILY PRN, Constipation,Pt taking 1 every evening and additional 1 if needed, Reported on 06/12/2024 Ferrous Sulfate 325 (65 Fe) MG Oral Tablet (Feosol)Indicati ons:Other iron deficiency anemias Take 1 tab Saturday and only. 8 Tablet 07/14/20 23 Active Acetaminophen 325 MG Oral Tablet (Tylenol) Take 2 Tablets by mouth every 6 hours. 30 Tablet 07/14/20 23 Active Vitamin D (Cholecalciferol ) 25 MCG (1000 UT) Oral Capsule Take 1 Capsule by mouth in the morning. 30 Capsule 07/14/20 23 Active Multivitamin Adults Oral Tablet Take 1 Tablet by mouth in the morning. 30 Tablet 07/14/20 23 Active Lutein 6 MG Oral Capsule Take 1 Capsule by mouth in the morning. 30 Capsule 07/14/20 Active DIURETIC TITRATION PLAN If no improvement on day 3, contact heart failure managing provider. 1 Each 07/14/20 Active Vitamin B-12 500 MCG Oral Tablet (vitamin B-12) Take one tab twice a week 26 Tablet 07/14/20 23 Active Biotin 1000 MCG Oral TabletIndication s:Routine gynecological examination Take 1 Tablet by mouth in the morning. 30 Tablet 07/14/20 23 Active Calcium-Magnesiu m-Vitamin D ER 600-40-500 MG-MG-UNIT Tablet Extended Release 24 HourIndications: Vitamin D deficiency,Osteo penia one daily (may use otc ) 30 Tablet 07/14/20 23 Active Folic Acid 0.8 MG Oral Capsule Take 1 Tablet by mouth in the morning. Active Atorvastatin Calcium 20 MG Oral Tablet (Lipitor)Indicat ions:Atheroscler osis of aorta (HCC) Take 1 Tablet by mouth daily. 90 Tablet 3 11/19/19 24 Active Metoprolol Succinate ER 25 MG Oral Tablet Extended Release 24 Hour (toPROL XL) Take 0.5 Tablets by mouth in the morning. 45 Tablet 3 12/25/19 24 Active Nystatin 554283 UNIT/GM External CreamIndications :Candidal intertrigo Apply topically to affected area 2 times a day. To affacted area for two weeks. 15 g 2 12/31/19 24 Active Omeprazole 20 MG Oral Capsule Delayed Release (PriLOSEC)Indica tions:GERD (gastroesophagea l reflux disease) Take 1 capsule by mouth in the morning 90 Capsule 01/07/20 24 Active Spironolactone 25 MG Oral Tablet (Aldactone)Indic ations:Tachy-bra dy syndrome (HCC),HTN, goal below 140/90 Take 1 [...] Active rOPINIRole HCl 0.25 MG Oral Tablet (Requip)Indicati ons:Tremors of nervous system TAKE 1 TABLET BY MOUTH IN THE MORNING AND 1 IN THE EVENING 180 Tablet 05/06/20 24 Active Sertraline HCl 50 MG Oral Tablet (Zoloft)Indicati ons:Anxiety about health TAKE 1 TABLET BY MOUTH IN THE MORNING 30 Tablet 5 05/28/20 24 Active Furosemide 20 MG Oral Tablet (Lasix) Take 1 tablet by mouth once daily 30 Tablet 06/30/20 24 Active Furosemide 20 MG Oral Tablet (Lasix) Take 1 Tablet by mouth as needed (edema, swelling). 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 0 [...] patient does not have a Power of Aws Software Development Engineer or Advanced Directives in place at [...] as of this encounter (statuses as of 06/30/2024) Resolved Problems Problem Noted Date Diagnosed Date [...] 11/03/2022 07/08/2022 Chronic diastolic (congestive) heart failure 2 11/28/2023 [...] as of this encounter (statuses as of 06/30/2024) Immunizations Name Administration Dates Next Due COVID-19 [...] encounter Miscellaneous Notes * Telephone Encounter - Carlos Alberto Murrieta MD - 06/30/2024 7:00 AM ESTSigned Prescriptions: Disp Refills Furosemide 20 MG Oral Tablet (Lasix) 30 Tab*0 Sig: Take 1 tablet by mouth once daily Authorizing Provider: CARLOS ALBERTO MURRIETA * Telephone Encounter - Yina Perez LPN - 06/29/2024 5:09 PM ESTPending Prescriptions: Disp Refills Furosemide 20 MG Oral Tablet 30 Tab*0 Sig: Take 1 tablet by mouth once daily * Telephone Encounter - Alva Scruggs LPN - 06/29/2024 3:34 PM EST Did you pend patient's preferred pharmacy and medication before forwarding?yes Pharmacy: [facility] [address] [place] [id number] Pending Prescriptions: Disp Refills Furosemide 20 MG Oral Tablet (Lasix) [Pha*30 Tab*0 Sig: Take 1 tablet by mouth once daily Last Visit: Visit date not found (in office), 04/01/2024 (telemedicine) Next Visit: 06/29/2024 If no future appointments scheduled, and last appointment is greater than a year ago, please schedule patient for a follow-up appointment Last date the medication was ordered: 12/29/23 Is this request for a controlled substance?No Urine Drug Screen: Results for orders placed or performed during the hospital encounter of 01/03/24 TOXICOLOGY, URINE SCREEN W/ CONFIRMATION Result Value Amphetamines Screen, U Negative Benzodiazepines Screen, U Negative Cannabinoids Screen, U Negative Cocaine Metabolite Screen, U Negative Fentanyl Screen, U Negative Hydrocodone Screen, U Negative Methadone Metabolite Screen, U Negative Morphine/Codeine Screen, U Negative Oxycodone Screen, U Negative Narrative Cutoff Concentrations: Drug Level Amphetamines 500 ng/mL Benzodiazepines 100 ng/mL Cannabinoids 50 ng/mL Cocaine Metabolite 150 ng/mL Fentanyl 1 ng/mL Hydrocodone / Hydromorphone 300 ng/mL Methadone Metabolite 100 ng/mL Morphine / Codeine 300 ng/mL Oxycodone / Oxymorphone 100 ng/mL Screening results are presumptive and can only be used for medical purposes. Positive screening results are reflexed to confirmatory testing. *Note: Due to a large number of results and/or encounters for the requested time period, some results have not been displayed. A complete set of results can be found in Results Review. Patient Phone Numbers Labs: Lab Results Component Value Date/Time CREAT 0.7 05/06/2024 11:39 AM CREAT 1.0 08/22/2020 11:12 AM POTASSIUM 3.9 05/06/2024 11:39 AM POTASSIUM 4.3 07/11/2020 11:34 AM TSH 1.96 04/16/2024 08:27 AM TSH 1.10 10/01/2018 04:29 PM LDL 69 04/16/2024 08:27 AM LDL 61 10/20/2019 11:42 AM LDL NOT APPLICABLE 10/20/2019 11:42 AM ALT 12 05/06/2024 11:39 AM ALT 20 07/11/2020 11:34 AM HGBA1C 5.6 04/16/2024 08:27 AM * Telephone Encounter - [facility] - 06/29/2024 7:57 AM EST Pending Prescriptions: Disp Refills Furosemide 20 MG Oral Tablet 30 Tab*0 Sig: Take 1 tablet by mouth once daily documented in this encounter Plan of Treatment Upcoming Encounters Date Type Department Care Team (Late st Contact Info) Description 07/08/2024 8:00 AM EST Laboratory Lab Mobile Phlebotomy [facility] [address] [place] [address] Gl, Gm Mobile Home Draw [address] [place] [address] 07/09/2024 6:00 AM EST Anticoagulation Centralized Clinical Pharmacy Services, Derrek Denton [address] [place] [address] [place] [address] [facility], [address] [place] [address] 07/14/2024 12:00 PM EST Office Visit Gastroenterology, [facility] [place] [address] [place] [phone] Rashida Jerome PA-C [address] [facility] [place] [address] 08/18/2024 3:30 PM EST Office Visit Otolaryngology, Francisco Polanco [address] [place] [address] Hema Hercules PA-C [address] [place] [address] 08/26/2024 5:40 PM EST Office Visit Family [facility], [place] [address] [place] [phone] Carlos Alberto Murrieta MD [address] [place] [address] 09/10/2024 12:50 PM EST Office Visit Dermatology, Francisco Caballero [address] [facility] [address] [place] [address] Marilyn Ozuna PA-C [address] [facility] [address] 09/17/2024 11:00 AM EST Laboratory Laboratory, [place] [facility] [phone] [facility] [address] 10/14/2024 11:00 AM EDT Telemedicine Hematology/Oncology, [address] [place] [address] Billy Basurto MD [address] [place] [phone] Cart, Telemed [facility] Hem Onc Clinic [address] [place] [address] [place] [address] 11/03/2024 3:00 PM EDT Office Visit Cardiology, [address] [address] Stephanie Ramos PA-C [address] [place], [place] [address] [address] 12/07/2024 1:30 PM EDT Nurse Only Rheumatology, [address] [address] [place], Nurse Rheumatology [address] [place] [address] [place] [address] 12/31/2024 1:00 PM EDT Cardiac Studies Cardiology, [address] [address] [place], Pacer Clinic [address] [place], [place] [address] [address] 02/04/2025 12:00 PM EDT Home Visit Care at Home [address] [place] [address] Carol Mathew PA-C [address] [place] [address] 06/14/2025 2:00 PM EST Office Visit Rheumatology, [address] [place] [address] Monster Jackman PA-C [address] [facility], [place] [address] Scheduled Procedures Name Priority Associated Diagnoses Date/Ti [...] Additional history exists CKD PHOS USE SMARTSET 29262 08/22/202408/05, 08/20/2023, 11/07/2022, Additional history exists HbA1c 10/14/2024 04/16/2024, 1212/2022, 04/01/2023 Albumin/Creatinine Ratio 12/05/2024 12/06/2023, 03/06 Adult Wellness Visit 02/03/2025 02/04/2024, 02/29/20 23 Depression Screening 02/03/2025 02/04/2024, 12/10/19 24 DXA Scan 04/22/2025 04/22/2023, 04/05, 12/25/2018, Additional history exists CKD HGB USE SMARTSET 69315 05/06/202505/06, 05/06/2024, 03/02/2024, Additional history exists Pneumococcal Vaccine: 65+ Years Completed 02/01/2016, 10/27/2002 VITAMIN D LEVEL ONCE IN A LIFETIME-USE SMARTSET# 80060 Completed 04/16/2024, 09/16/2023, 10/20/2019, Additional history exists [...] encounter Medical Devices Implanted Type Area Service Dismantler Device Identifier Shelf Expiration Date Model / Serial / Lot Implant System, Trim-It Drill Pin [id number]" X 4" Implanted:Qty: 1 on 10/10/2017 by Sydney Castelan DPM at OR [facility] Right: Toe 04/04/2019 AR-[id number] / / [id number] Medtronic Attesta Surescan Pacemaker Implanted:Qty: 1 on 06/09/2020 by Chanel Lin DO at OR [facility] Left: Chest 08/01/2021 ATSR01 / [id number] / Nail [id number] Left [id number] - [id number] Implanted:Qty: 1 on 01/20/2021 by Alli Townsend MD at OR [facility] Left: Hip MILAN : TRAUMA 12/03/2023 3525-034 0S / / [id number] Screw Lag 10.5x95mm - [id number] Implanted:Qty: 1 on 01/20/2021 by Alli Townsend MD at OR [facility] Left: Hip MILAN : TRAUMA 11/02/2025 3060-009 5S / / [id number] Screw T2 Alpha Lock 5x47.5mm - [id number] Implanted:Qty: 1 on 01/20/2021 by Alli Townsend MD at OR [facility] Left: Hip MILAN : TRAUMA 05/04/2029 2360-504 7S / / [id number] documented as of this encounter Advance Directives Documents on File Type Date Recorded Patient Social Media Director Raman OLIVO 07/15/[address] [place] [address] [facility] FOR LIFE-SUSTAINING TREATMENT * Full [...] First Alternate Health Care Agent Care Teams Email Marketing Processor Relationship Specialty Start Date End Date Carlos Alberto Murrieta MD [address] [place] [phone] PCP - General Family Medicine 12/06/22 documented as of this encounter
--- OUTSIDE RECORDS SUMMARY | 2024-08-18 16:11 | External Medical Summary | Summary of Care ---
Author Name Unknown Organization [facility] Address [address] [place] [address] Phone [phone] Care Team Providers Care Grocery Stocker Name Role Phone Amor Pate MD Primary Care Provider [phone] Reason for Visit * Reason Onset Date Comments Follow Up 06/29/2024 Encounter Details Date Type Department Care Team (Late Contact Info) Description 06/29/2024 11:00 AM EST Scheduled Telephone [facility], [facility] 132 [place] [address] Allison Young RN [address] [place] [address] Allergies No known active allergiesdocumented as of this encounter (statuses as of 06/29/2024) Medications Sennosides 8.6 MG Oral Tablet (Senokot) [...] in the morning. 30 Capsule 3 Active Furosemide 20 MG Oral Tablet (Lasix) Take 1 Tablet by mouth as needed (edema, swelling). 30 Tablet 3 Active DIURETIC TITRATION PLAN If no [...] Tablet by mouth daily. 90 Tablet 3 4 Active Metoprolol Succinate ER 25 MG Oral Tablet Extended Release 24 Hour (toPROL XL) Take 0.5 Tablets by mouth in the morning. 45 Tablet 3 4 Active Nystatin 149690 UNIT/GM External CreamIndications: Candidal intertrigo Apply topically [...] THE MORNING 30 Tablet 5 4 Active documented as of this encounter (statuses as of 06/29/2024) Active Problems Problem Noted Date Diagnosed Date [...] multicystic lesion of the pancreas CEA, FLUID 99089.0 ng/mL Final COMMENT Final The reference range [...] Plan (12/08/2021 5:25 PM EDT): S/p pacemaker longterm current use of anticoagulant therapy 0 08/28/2010 [...] patient does not have a Power of Inspector Weights And Measures or Advanced Directives in place at this [...] as of this encounter (statuses as of 06/29/2024) Resolved Problems Problem Noted Date Diagnosed Date [...] as of this encounter (statuses as of 06/29/2024) Immunizations Name Administration Dates Next Due COVID-19 mRNA, LNP-s, No Pre serve, 2-Dose Series (Evolero) 10/26/2020,09/30/2020 Pneumococcal Conjugate Vacc, 13 Valent (Prevnar) [...] Miscellaneous Notes * Telephone Encounter - Allison Young RN - 06/29/2024 5:44 PM EST Call placed to patient to follow up on hospice informational visit. No answer, left message. Spoke with Syl Mallory RN Exec Director from [facility] who confirmed that Mrs. Villar has been admitted to hospice. [facility] program closed. documented in this encounter Plan of Treatment Upcoming Encounters Date Type Department Care Team (Late st Contact Info) Description 07/08/2024 8:00 AM EST Laboratory Lab Mobile Phlebotomy [place] [address] [place] [address] Gl, [facility] Mobile Home Draw [address] [place] [address] 07/09/2024 6:00 AM EST Anticoagulation Centralized Clinical Pharmacy Services, Derrek Denton [address] [place] [address] [place] [address] [place] [address] 07/14/2024 12:00 PM EST Office [facility] [address] [place] [phone] Rashida Jerome PA-C 310 [facility] [place] [address] 08/18/2024 3:30 PM EST Office Visit OtolaryngologyAdwoa [place] [address] [place] [address] Hema Hercules PA-C [address] [place] [address] 08/26/2024 5:40 PM EST Office Visit Family Francisco Ac [address] [place] [phone] Amor Pate MD [address] [place] [address] 09/10/2024 12:50 PM EST Office Visit DermatologyAdwoa [place] [address] [place] [address] [place] [address] Marilyn Ozuna PA-C [address] [place] [address] 09/17/2024 11:00 AM EST Laboratory Laboratory, [place] [facility] [phone] [place], [facility] 21 [facility] [address] 10/14/2024 11:00 AM EDT Telemedicine Hematology/Oncology, [address] [address] Billy Basurto MD [address] [place] [phone] Cart, Telemed [facility] Hem Onc Clinic [address] [place], [place] [address] [address] 11/03/2024 3:00 PM EDT Office Visit Cardiology, [address] [address] Stephanie Ramos PA-C [address] [place] [address] 12/07/2024 1:30 PM EDT Nurse Only Rheumatology, [address] [address] [place], Nurse Rheumatology [address] [place], [place] [address] [address] 12/31/2024 1:00 PM EDT Cardiac Studies Cardiology, [address] [address] [place], Pacer Clinic [address] [place] [address] [place] [address] 02/04/2025 12:00 PM EDT Home Visit Care at Home [address] [place] [address] Carol Mathew PA-C [address] [place] [facility] [place] [address] 06/14/2025 2:00 PM EST Office Visit Rheumatology, [address] [place] [address] Monster Jackman PA-C [address] [facility], [place] [address] Scheduled Procedures Name Priority Associated Diagnoses Date/Ti [...] Additional history exists CKD PHOS USE SMARTSET 32228 08/22/202408/05, 08/20/2023, 11/07/2022, Additional history exists HbA1c 10/14/2024 04/16/2024, 1212/2022, 04/01/2023 Albumin/Creatinine Ratio 12/05/2024 12/06/2023, 03/06 Adult Wellness Visit 02/03/2025 02/04/2024, 02/29/20 23 Depression Screening 02/03/2025 02/04/2024, 12/10/19 24 DXA Scan 04/22/2025 04/22/2023, 04/05, 12/25/2018, Additional history exists CKD HGB USE SMARTSET 90947 05/06/202505/06, 05/06/2024, 03/02/2024, Additional history exists Pneumococcal Vaccine: 65+ Years Completed 02/01/2016, 10/27/2002 VITAMIN D LEVEL ONCE IN A LIFETIME-USE SMARTSET# 55657 Completed 04/16/2024, 09/16/2023, 10/20/2019, Additional history exists [...] this encounter Medical Devices Implanted Type Area Plant Guide Device Identifier Shelf Expiration Date Model / Serial / Lot Implant System, Trim-It Drill Pin [id number](.078" X 4" Implanted:Qty: 1 on 10/10/2017 by Sydney Castelan DPM at OR [facility] Right: Toe 04/04/2019 AR-4152DS / / [id number] Medtronic Attesta Surescan Pacemaker Implanted:Qty: 1 on 06/09/2020 by Chanel Lin DO at OR [facility] Left: Chest 08/01/2021 ATSR01 / [id number] / Nail Gamma3 Left [id number] - [id number] Implanted:Qty: 1 on 01/20/2021 by Alli Townsend MD at OR [facility] Left: Hip MILAN : TRAUMA 12/03/2023 3525-034 0S / / [id number] Screw Lag 10.5x95mm - [id number] Implanted:Qty: 1 on 01/20/2021 by Alli Townsend MD at OR [facility] Left: Hip MILAN : TRAUMA 11/02/2025 3060-009 5S / / [id number] Screw T2 Alpha Lock 5x47.5mm - [id number] Implanted:Qty: 1 on 01/20/2021 by Alli Townsend MD at OR [facility] Left: Hip MILAN : TRAUMA 05/04/2029 2360-504 7S / / [id number] documented as of this encounter Advance Directives Documents on File Type Date Recorded Patient Test Fixture Assembler Expl anation POLST 07/15/2023 [place] OR [facility] FOR LIFE-SUSTAINING TREATMENT * Full [...] First Alternate Health Care Agent Care Teams Grocery Stocker Relationship Specialty Start Date End Date Amor Pate MD [address] [place] [address] PCP - General Family Medicine 12/06/22 documented as of this encounter
--- OUTSIDE RECORDS SUMMARY | 2024-08-18 16:11 | External Medical Summary ---
Author Name Unknown Address Unknown Organization K1F:LABORATORY [facility] - [place] [address] Laboratory Report Ordering Provider Test Date Status ANDREW HOOVER 07/08/2024 11:21:51 Final Please draw PT/INR every 1-4 weeks or as requested by the [facility] Coumadin Clinic

Warfarin Therapy
INR: 2.0-3.0 conventional anticoagulation
INR: 2.5-3.5 high intensity anticoagulation Observation Date Value Abnormality Reference (Units ) Status PT 07/08/2024 11:21:51 15.9 Above high normal 11 .6-15.2 (seconds) Final INR 07/08/2024 11:21:51 1.3 Above high normal 0. 8-1.2 Final Performing Location LABORATORY [facility] - [address] [place] [address]
--- OUTSIDE RECORDS SUMMARY | 2024-08-18 16:11 | External Medical Summary | Summary of Care ---
Author Name Unknown Organization [facility] Address [address] [place] [address] Phone [phone] Care Team Providers Care Drug Enforcement Agent Name Role Phone Amor Pate MD Primary Care Provider [phone] Reason for Visit * Reason Comments Dosage Adjustment Via Phone (anticoag Cl inic) Encounter Details Date Type Department Care Team (Late st Contact Info) Description 07/08/2024 6:00 PM EST Anticoagulation Centralized Clinical Pharmacy Services, [place] [address] [place] [address] [place] [address] [place] [address] group home current use of anticoagulant therapy* Allergies No known active allergiesdocumented as of this encounter (statuses as of 07/08/2024) Medications Sennosides 8.6 MG Oral Tablet (Senokot) [...] morning. 45 Tablet 3 4 Active Nystatin 668452 UNIT/GM External CreamIndications: Candidal intertrigo Apply topically [...] as of this encounter (statuses as of 07/08/2024) Active Problems Problem Noted Date Diagnosed Date [...] multicystic lesion of the pancreas CEA, FLUID 38164.0 ng/mL Final COMMENT Final The reference range [...] Plan (12/08/2021 5:25 PM EDT): S/p pacemaker roasterman current use of anticoagulant therapy 0 08/28/2010 [...] patient does not have a Power of Software Application Tester or Advanced Directives in place at this [...] as of this encounter (statuses as of 07/08/2024) Resolved Problems Problem Noted Date Diagnosed Date [...] as of this encounter (statuses as of 07/08/2024) Immunizations Name Administration Dates Next Due COVID-19 [...] this encounter Progress Notes * Marilyn Kulkarni, [facility] - 07/08/2024 3:25 PM EST Contacts Contact Date/Time Type Contact Phone/Fax 07/08/2024 03:24 PM EST Phone (Outgoing) Zulma Villar (Self) [phone] (H) Spoke to Patient Subjective Patient Findings [...] noted by Pharmacist: Yes Marilyn Kulkarni CPhT 07/08/2024, 3:25 PM * Kadie Byers RPh - 07/08/2024 3:23 PM EST Images from the original note were not included. Coumadin Clinic (region specific) Objective Current Warfarin Dose As of 07/08/2024 Warfarin maintenance plan: 4 mg (2 mg x 2) every Fri; 2 mg (2 mg x 1) all other days INR Result As of 07/08/2024 INR goal: 2.0-3.0 INR used for dosin.3 (07/08/2024) Assessment & Plan Warfarin Plan As of 07/08/2024 Full warfarin instructions: 07/08: 4 mg; Otherwise 4 mg every Fri; 2 mg all other days Next INR check: 07/22/2024 Repeat PT/INR in 2 week(s) Weekly dose: not changed Additional Dosing Information: Description [facility] [place] fax [phone] Boost- 1/day Tech to contact patient with dose instructions as noted. Kadie Byers RPh 07/08/2024, 3:23 PM documented in this encounter Plan of Treatment Upcoming Encounters Date Type Department Care Team (Late st Contact Info) Description 07/14/2024 12:00 PM EST Office Visit Gastroenterology, [place] [address] [place] [address] [place] [phone] Rashida Jerome PA-C [address] [place] [address] 07/23/2024 6:00 AM EST Anticoagulation Centralized Clinical Pharmacy Services, [place] [address] [place] [address] [place] [address] [place] [address] 08/18/2024 3:30 PM EST Office Visit Otolaryngology, [place] [address] [place] [address] Hema Hercules PA-C [address] [place] [address] 08/26/2024 5:40 PM EST Office Visit Family [facility], [place] [address] [place] [phone] Amor Pate MD [address] [place] [address] 09/10/2024 12:50 PM EST Office Visit Dermatology, [place] [address] [place] [address] Marilyn Ozuna PA-C [address] [place] [address] 09/17/2024 11:00 AM EST Laboratory Laboratory, [place] [address] [place] [phone] [place] [facility] 21 [facility] [place]BRAGRANITE QU[place] Frank [address] 10/14/2024 11:00 AM EDT Telemedicine Hematology/Oncology, [address] [place] [address] Billy Basurto MD 400 [facility] [place] [address] Cart, Telemed [facility] [address] [place] [address] 11/03/2024 3:00 PM EDT Office Visit Cardiology, [address] [address] Stephanie Ramos PA-C [address] [place] [address] 12/07/2024 1:30 PM EDT Nurse Only Rheumatology, [address] [address] [place], Nurse Rheumatology [address] [place] [address] 12/31/2024 1:00 PM EDT Cardiac Studies Cardiology, [address] [address] [place], Pacer Clinic [address] [place] [address] 02/04/2025 12:00 PM EDT Home Visit Care at Home [address] [place] [address] Carol Mathew PA-C [address] [place] [address] 06/14/2025 2:00 PM EST Office Visit Rheumatology[address] [id number] Monster Jackman, PALaureenC [address] [facility] [address] Scheduled Procedures Name Priority Associated Diagnoses Date/Ti [...] Additional history exists CKD PHOS USE SMARTSET 45900 08/22/202408/05, 08/20/2023, 11/07/2022, Additional history exists HbA1c 10/14/2024 04/16/2024, 1212/2022, 04/01/2023 Albumin/Creatinine Ratio 12/05/2024 12/06/2023, 03/06 Adult Wellness Visit 02/03/2025 02/04/2024, 02/29/20 23 Depression Screening 02/03/2025 02/04/2024, 12/10/19 24 DXA Scan 04/22/2025 04/22/2023, 04/05, 12/25/2018, Additional history exists CKD HGB USE SMARTSET 13588 05/06/202505/06, 05/06/2024, 03/02/2024, Additional history exists Pneumococcal Vaccine: 65+ Years Completed 02/01/2016, 10/27/2002 VITAMIN D LEVEL ONCE IN A LIFETIME-USE SMARTSET# 70279 Completed 04/16/2024, 09/16/2023, 10/20/2019, Additional history exists [...] this encounter Medical Devices Implanted Type Area Assistant Pressman Device Identifier Shelf Expiration Date Model / Serial / Lot Implant System, Trim-It Drill Pin [id number]" X 4" Implanted:Qty: 1 on 10/10/2017 by Sydney Castelan DPM at OR [facility] Right: Toe 04/04/2019 AR-4152DS / / [id number] Medtronic Attesta Surescan Pacemaker Implanted:Qty: 1 on 06/09/2020 by Chanel Lin DO at OR [facility] Left: Chest 08/01/2021 ATSR01 / [id number] / Nail [id number] Left [id number] - [id number] Implanted:Qty: 1 on 01/20/2021 by Alli Townsend MD at OR [facility] Left: Hip MILAN : TRAUMA 12/03/2023 3525-034 0S / / [id number] Screw Lag 10.5x95mm - [id number] Implanted:Qty: 1 on 01/20/2021 by Alli Townsend MD at OR [facility] Left: Hip MILAN : TRAUMA 11/02/2025 3060-009 5S / / [id number] Screw T2 Alpha Lock 5x47.5mm - [id number] Implanted:Qty: 1 on 01/20/2021 by Alli Townsend MD at OR [facility] Left: Hip MILAN : TRAUMA 05/04/2029 2360-504 7S / / [id number] documented as of this encounter Visit Diagnoses [...] kidney disease, unspecified CKD stage, unspecified whether half-way insulin use (HCC) Aortic calcification (HCC) Atherosclerosis [...] of left buttock, stage 2 (HCC)- Primary roasterman current use of anticoagulant therapy- Primary documented in this encounter Advance Directives Documents on File Type Date Recorded Patient Trust And Estates Paralegal Expl anation POLST 07/15/2023 [place] OR [facility] FOR LIFE-SUSTAINING TREATMENT * [...] First Alternate Health Care Agent Care Teams Drug Enforcement Agent Relationship Specialty Start Date End Date Amor Pate MD 21 [place] [address] PCP - General Family Medicine 12/06/22 documented as of this encounter
--- OUTSIDE RECORDS SUMMARY | 2024-08-18 16:11 | External Medical Summary | Summary of Care ---
Author Name Unknown Organization [facility] Address [address] [place] [address] Phone [phone] Care Team Providers Care Rubber Flap Tuber Machine Operator Name Role Phone Amor Pate MD Primary Care Provider [phone] Encounter Details Date Type Department Care Team (Late Contact Info) Description 06/26/2024 12:30 PM EST [facility] [address] Allison Young, RN 132 [place] [address] Allergies No known active allergiesdocumented as of this encounter (statuses as of 06/26/2024) Medications Sennosides 8.6 MG Oral Tablet (Senokot) [...] morning. 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 Dyslipidemia, goal LDL below 70 08/23/2003 Overview (03/11/2013): LDL (CALCULATED)(mg/dL) Rd Dt/Tm Resulted Value Status 03/07/13 9:10A 03/07/13 152* satisfactory no evid of sign atherosclerosis LDL (CALCULATED)(mg/dL) Dr Dt/Tm Resulted Value Status 09/14/10 9:35A 09/14/10 128 FINAL Lipid Panel Results: LDL (CALCULATED) (mg/dL) 12/07/03 9:45A 12/07/03 131* Final Assessment & Plan (12/04/2022 2:26 PM EDT): LDL at goal on atorvastatin Incipient senile cataract documented as of this encounter (statuses as of 06/26/2024) Resolved Problems Problem Noted Date Diagnosed Date [...] Plan (12/04/2022 10:54 AM EDT): PCP kyra bartholomew yesteday Has home health SN Seeing wound [...] 11.7* FINAL 01/27/08 10:01A 01/27/08 12.5 FINAL 8/1/05 12.7 08/29/01 12.4 04/08/98 12.5 03/06/2005 cbc [...] as of this encounter (statuses as of 06/26/2024) Immunizations Name Administration Dates Next Due COVID-19 mRNA, LNP-s, No Pre serve, 2-Dose Series ([employer]) 10/26/2020,09/30/2020 Pneumococcal Conjugate Vacc, 13 Valent (Prevnar) [...] AM EDT documented as of this encounter Last Filed Vital Signs Vital Sign Reading Time Taken Comments Blood Pressure 132/76 06/26/2024 1:28 PM EST Pulse 68 06/26/2024 1:28 PM EST Temperature 36.7 C (98.1 F) 06/26/2024 1:28 PM ES T Respiratory Rate 22 06/26/2024 1:28 PM EST Oxygen Saturation 94% 06/26/2024 1:28 PM EST Inhaled Oxygen Concentration - - Weight - - Height - - Body Mass Index - - documented in this encounter Functional Status * Are you [...] Entry Date Author No 08/21/2023 3:15 AM EST Mikki Lezama RN documented in this encounter Progress Notes * Allison Young RN - 06/26/2024 12:30 PM EST Images from the original note were not included. Current Concerns: Zulma is being seen by [facility] RN[facility] today for follow up visit to assess left buttock wound. Pt in restroom waiting for me to assess her wound when I arrived. Had a difficult time standing due to weakness in her legs and had to sit several times prior to being able to complete wound assessment and wound care. Left buttocks wound assessment complete. Serosanguinous drainage on the dressing. Wound has grown in length and width as compared to last RNCM visit. Measurements: 1.8cm x 0.8cm x 0.2cm Wound cleansed, patted dry, duoderm applied. Pt needed max assistance from myself and her caregiver to ambulate short distance from her bathroomback to her recliner chair. Family reports that she fell twice in the past week. Noted small bruise on left flank and bruising across right toes that resulted from her fall. She has marked increase in weakness. She thinks she would be able to ambulate and transfer independently if she were able to work with PT to gain strength. PCP referred to home PT. Worked with patient to establish realistic goals for her mobility. Reports cold s/s over the past week. Main c/o is runny nose. No fevers, denies SOB, occasional nonproductive cough. In general feels tired and "played out". Step dtr Dixon present for visit today. She voiced concerns regarding pt's increasing weakness. Shehas paid caregivers through [facility] [employer] and [employer] vocational adviser which are supposed to be covering 24 hours daily however there are many times they do not have anyone available to cover shifts. Pt spouse is not physically capable of assisting with her transfers/ambulation. They are looking into private duty caregivers. Discussed safety concerns with patient. She is adamant that she will not return to a SNF and does not want to return to the hospital. She has had a decline in her overall health status in the past 6 months. We discussed Hospice care as an option to provide her with an additional layer of support in her care team as well as help herto reach her goals of care at home. Pt is agreeable to meet with the hospice team to further discuss goals of care and the hospice benefit. She would like to discuss this with her children as well prior to making a decision. Spoke with Syl Mallory RN Exec Director at [facility]. She is going to facilitate a hospice informational visit to be scheduled with patient on Friday 06/29. If pt meets hospice criteriaand is agreeable after that visit, will seek a hospice referral order. Pt reminded to contact [facility] at [phone] with any red flags, changes in condition, or concerns. Physical Exam: Physical Exam Constitutional: General: She is not in acute distress. Appearance: She is normal weight. She is ill-appearing. HENT: Nose: Congestion and rhinorrhea present. Mouth/Throat: Mouth: Mucous membranes are moist. Cardiovascular: Rate and Rhythm: Normal rate. Rhythm irregular. Pulses: Normal pulses. Heart sounds: Normal heart sounds. Pulmonary: Effort: Pulmonary effort is normal. Breath sounds: Normal breath sounds. Abdominal: General: Bowel sounds are normal. Palpations: Abdomen is soft. Skin: General: Skin is warm and dry. Capillary Refill: Capillary refill takes less than 2 seconds. Findings: Bruising present. Neurological: Mental Status: She is alert and oriented to person, place, and time. Psychiatric: Mood and Affect: Mood normal. Review of Systems: Review of Systems Constitutional: Positive for fatigue. Negative for chills and fever. HENT: Positive for rhinorrhea. Respiratory: Negative for cough, shortness of breath and wheezing. Cardiovascular: Positive for leg swelling. Negative for chest pain and palpitations. Gastrointestinal: Negative for constipation and diarrhea. Genitourinary: Negative for difficulty urinating and dysuria. Musculoskeletal: Positive for arthralgias and gait problem (Shuffling gait; ambulates with 1 assistand walker at all times). Bilat knee pain Skin: Positive for wound. Neurological: Positive for weakness. Negative for dizziness, light-headedness and headaches. Hematological: Bruises/bleeds easily (on warfarin). Psychiatric/Behavioral: Negative. Care Plan Goal Progress: Patient will maintain optimal mobility & activity level. (Not Progressing) Start: 04/20/24 Expected End: 08/04/24 Goal Note Pt is weak and having a difficult time with transfers and ambulation. Needs max assistance. GS - Patient will maintain skin integrity related to immobility (Not Progressing) Start: 05/07/24 Expected End: 07/06/24 Goal Note Poor wound healing of left buttocks wound. Pt spends majority of her time sitting in her recliner. Stressed importance of offloading pressure, encouraged to get in bed a few times daily for 20-30 minute periods. Patient will have improved cardiac output. (Progressing) Start: 04/20/24 Expected End: 08/04/24 Patient & caregiver will demonstrate understanding. (Progressing) Start: 04/20/24 Expected End: 08/04/24 Orders Placed: No orders of the defined types were placed in this encounter. Medications Given: none Care Gaps: Care Gaps Care gaps closed this contact: Advanced Care Collaborative;Plan of Care (POC);Education;Home based procedures (06/26/24 1500) Type of Advance Care Planning Collaboration: Advance directive/goals of care discussed (06/26/24 1500) Type of education: Clinical/disease (06/26/24 1500) Procedure performed: Wound care (06/26/24 1500) Type of plan of care (POC) care gap: Education and review of exacerbation plan (06/26/24 1500) documented in this encounter Plan of Treatment Upcoming Encounters Date Type Department Care Team (Late st Contact Info) Description 06/29/2024 11:00 AM EST Scheduled Telephone [facility] 132 [facility] [place] [address] Allison Young RN 132 [facility] [place] [address] 07/08/2024 8:00 AM EST Laboratory Lab Mobile Phlebotomy [facility] [address] [place] [address] [facility] Mobile Home Draw [address] [place] [address] 07/09/2024 6:00 AM EST Anticoagulation Centralized Clinical Pharmacy Services, [address] [place] [address] [facility], [address] [place] [address] 07/10/2024 1:40 PM EST Home Visit [facility], [facility] 132 [facility] [place] [address] Kayla Thompson CRNP 132 [address] [facility] [place] [address] Zohaib Castillo, Community Health Bail Agent [address] [place] [address] 07/14/2024 12:00 PM EST Office Visit Gastroenterology, [facility] [place] [address] [facility] [phone] Rashida Jerome PA-C 310 [facility] [place] [address] 07/16/2024 1:30 PM EST Scheduled Telephone [facility] at Home, [facility] [address] [facility] [place]es [address] Cyndie Hilton, RDN [address] [facility] [place] [address] 08/18/2024 3:30 PM EST Office Visit Otolaryngology, [place] 27 [place] [address] Hema Hercules PA-C 27 [place] [address] 08/26/2024 5:40 PM EST Office Visit Family Practice, [place] [facility] [place] [phone] Amor Pate MD [address] [place] [address] 09/10/2024 12:50 PM EST Office Visit Dermatology, Adwoa Green [place] [address] [place] [address] Marilyn Ozuna PA-C [address] [place] [address] 09/17/2024 11:00 AM EST Laboratory Laboratory, [place] 21 [facility] [phone] [place], Lab [facility] [address] 10/14/2024 11:00 AM EDT Telemedicine Hematology/Oncology, [address] [address] Billy Basurto MD 400 [place] [phone] Cart, Telemed [facility] Hem Onc Clinic 400 [place] [address] 11/03/2024 3:00 PM EDT Office Visit Cardiology, [place] 400 [place] [address] Stephanie Ramos PA-C 400 [facility] [address] 12/07/2024 1:30 PM EDT Nurse Only Rheumatology, [facility] [address] [place], Nurse Rheumatology [address] [place] [address] 12/31/2024 1:00 PM EDT Cardiac Studies Cardiology, [address] [address] [place], Pacer Clinic 400 [place] [address] 02/04/2025 12:00 PM EDT Home Visit Care at Home [address] [place] [address] Carol Mathew PA-C [address] [place] [address] 06/14/2025 2:00 PM EST Office Visit Rheumatology, [address] [address] Monster Jackman PA-C [address] [employer] [place] [address] Scheduled Procedures Name Priority Associated Diagnoses Date/Ti [...] Additional history exists CKD PHOS USE SMARTSET 81496 08/22/202408/05, 08/20/2023, 11/07/2022, Additional history exists HbA1c 10/14/2024 04/16/2024, 1212/2022, 04/01/2023 Albumin/Creatinine Ratio 12/05/2024 12/06/2023, 03/06 Adult Wellness Visit 02/03/2025 02/04/2024, 02/29/20 23 Depression Screening 02/03/2025 02/04/2024, 12/10/19 24 DXA Scan 04/22/2025 04/22/2023, 04/05, 12/25/2018, Additional history exists CKD HGB USE SMARTSET 71404 05/06/202505/06, 05/06/2024, 03/02/2024, Additional history exists Pneumococcal Vaccine: 65+ Years Completed 02/01/2016, 10/27/2002 VITAMIN D LEVEL ONCE IN A LIFETIME-USE SMARTSET# 64601 Completed 04/16/2024, 09/16/2023, 10/20/2019, Additional history exists [...] this encounter Medical Devices Implanted Type Area Plaster Tender Device Identifier Shelf Expiration Date Model / Serial / Lot Implant System, Trim-It Drill Pin [id number]" X 4" Implanted:Qty: 1 on 10/10/2017 by Sydney Castelan DPM at OR [facility] Right: Toe 04/04/2019 AR-[id number] / / [id number] Medtronic Attesta Surescan Pacemaker Implanted:Qty: 1 on 06/09/2020 by Chanel Lin DO at OR [facility] Left: Chest 08/01/2021 ATSR01 / [id number] / Nail [id number] Left [id number] - [id number] Implanted:Qty: 1 on 01/20/2021 by Alli Townsend MD at OR [facility] Left: Hip MILAN : TRAUMA 12/03/2023 3525-034 0S / / [id number] Screw Lag 10.5x95mm - [id number] Implanted:Qty: 1 on 01/20/2021 by Alli Townsend MD at OR [facility] Left: Hip MILAN : TRAUMA 11/02/2025 3060-009 5S / / [id number] Screw T2 Alpha Lock 5x47.5mm - [id number] Implanted:Qty: 1 on 01/20/2021 by Alli Townsend MD at OR [facility] Left: Hip MILAN : TRAUMA 05/04/2029 2360-504 7S / / [id number] documented as of this encounter Advance Directives Documents on File Type Date Recorded Patient Tub Attendant Expl anation POLST 07/15/2023 [place] OR [facility] FOR LIFE-SUSTAINING TREATMENT * Full [...] First Alternate Health Care Agent Care Teams Rubber Flap Tuber Machine Operator Relationship Specialty Start Date End Date Amor Pate MD 21 [place] [id number] PCP - General Family Medicine 12/06/22 documented as of this encounter
--- OUTSIDE RECORDS SUMMARY | 2024-08-18 16:11 | External Medical Summary | Summary of Care ---
Author Name Unknown Organization [facility] Address [address] [place] [address] Phone [phone] Care Team Providers Care Lay Out Worker Name Role Phone Amor Pate MD Primary Care Provider [phone] Reason for Visit * Reason Onset Date Comments Follow Up 06/29/2024 Encounter Details Date Type Department Care Team (Late Contact Info) Description 06/29/2024 11:00 AM EST Scheduled Telephone [facility], [facility] [address] [place] [address] Allison Young RN [address] [place] [address] Allergies No known active allergiesdocumented as of [...] morning. 45 Tablet 3 4 Active Nystatin 888731 UNIT/GM External CreamIndications: Candidal intertrigo Apply topically [...] multicystic lesion of the pancreas CEA, FLUID 77066.0 ng/mL Final COMMENT Final The reference range [...] patient does not have a Power of Batch Freezer Operator or Advanced Directives in place at this [...] mRNA, LNP-s, No Pre serve, 2-Dose Series (StellaService) 10/26/2020,09/30/2020 Pneumococcal Conjugate Vacc, 13 Valent (Prevnar) [...] with Syl Mallory RN Exec Director from [facility] who confirmed that Mrs. Villar has been admitted to hospice. [facility] program closed. documented in this encounter Plan of Treatment Upcoming Encounters Date Type Department Care Team (Late st Contact Info) Description 07/08/2024 8:00 AM EST Laboratory Lab Mobile Phlebotomy [place] [address] [place] [address] Gl, [facility] Mobile Home Draw [address] [place] [address] 07/09/2024 6:00 AM EST Anticoagulation Centralized Clinical Pharmacy Services, Derrek Denton [address] [place] [address] [place] [address] [place] [address] 07/14/2024 12:00 PM EST [facility] [address] [place] [phone] Rashida Jerome PA-C 310 [facility] [place] [address] 08/18/2024 3:30 PM EST Office Visit OtolaryngologyAdwoa [place] [address] [place] [address] Hema Hercules PA-C [address] [place] [address] 08/26/2024 5:40 PM EST Office Visit Family [place] Ac [address] [place] [phone] Amor Pate MD [address] [place] [address] 09/10/2024 12:50 PM EST Office Visit DermatologyAdwoa [place] [address] [place] [address] [place] [address] Marilyn Ozuna PA-C [address] [place] [address] 09/17/2024 11:00 AM EST Laboratory Laboratory, [place] [facility] [phone] [place], [facility] [address] 10/14/2024 11:00 AM EDT Telemedicine Hematology/Oncology, [address] [address] Billy Basurto MD [address] [place] [phone] Cart, Telemed [facility] [address] [place], [place] [address] [address] 11/03/2024 3:00 PM EDT Office Visit Cardiology, [address] [address] Stephanie Ramos PA-C [address] [place] [address] 12/07/2024 1:30 PM EDT Nurse Only Rheumatology, [address] [address] [place], Nurse Rheumatology [address] [place], [place] [address] [address] 12/31/2024 1:00 PM EDT Cardiac Studies Cardiology, [address] [address] [place], [facility] [address] [place] [address] [place] [address] 02/04/2025 12:00 PM EDT Home Visit Care at Home [address] [place] [address] Carol Mathew PA-C [address] [place] [facility] [place] [address] 06/14/2025 2:00 PM EST Office Visit Rheumatology, [address] [place] [address] Monster Jackman PA-C [address] [facility], [place] [address] Scheduled Procedures Name Priority Associated Diagnoses Date/Ti [...] Additional history exists CKD PHOS USE SMARTSET 36393 08/22/202408/05, 08/20/2023, 11/07/2022, Additional history exists HbA1c 10/14/2024 04/16/2024, 1212/2022, 04/01/2023 Albumin/Creatinine Ratio 12/05/2024 12/06/2023, 03/06 Adult Wellness Visit 02/03/2025 02/04/2024, 02/29/20 23 Depression Screening 02/03/2025 02/04/2024, 12/10/19 24 DXA Scan 04/22/2025 04/22/2023, 04/05, 12/25/2018, Additional history exists CKD HGB USE SMARTSET 89880 05/06/202505/06, 05/06/2024, 03/02/2024, Additional history exists Pneumococcal Vaccine: 65+ Years Completed 02/01/2016, 10/27/2002 VITAMIN D LEVEL ONCE IN A LIFETIME-USE SMARTSET# 15815 Completed 04/16/2024, 09/16/2023, 10/20/2019, Additional history exists [...] this encounter Medical Devices Implanted Type Area Sneller Hand Device Identifier Shelf Expiration Date Model / Serial / Lot Implant System, Trim-It Drill Pin [id number]" X 4" Implanted:Qty: 1 on 10/10/2017 by Sydney [facility]elan DPM at [facility] Right: Toe 04/04/2019 AR-[id number] / / [id number] Medtronic Attesta Surescan Pacemaker Implanted:Qty: 1 on 06/09/2020 by Chanel Lin DO at [facility] Left: Chest 08/01/2021 ATSR01 / [id number] / Nail [id number] Left [id number] - [id number] Implanted:Qty: 1 on 01/20/2021 by Alli Townsend MD at [facility] Left: Hip MILAN : TRAUMA 12/03/2023 3525-034 0S / / [id number] Screw Lag 10.5x95mm - [id number] Implanted:Qty: 1 on 01/20/2021 by Alli Townsend MD at [facility] Left: Hip MILAN : TRAUMA 11/02/2025 3060-009 5S / / [id number] Screw T2 Alpha Lock 5x47.5mm - [id number] Implanted:Qty: 1 on 01/20/2021 by Alli Townsend MD at [facility] Left: Hip MILAN : TRAUMA 05/04/2029 [id number] 7S / / [id number] documented as of this encounter Advance Directives Documents on File Type Date Recorded Patient Cistern Room Working Supervisor Expl anation POLST 07/15/2023 [place] OR [facility] FOR LIFE-SUSTAINING TREATMENT * Full Code [...] First Alternate Health Care Agent Care Teams Lay Out Worker Relationship Specialty Start Date End Date Amor Pate MD [address] [place] [address] PCP - General Family Medicine 12/06/22 documented as of this encounter
--- OUTSIDE RECORDS SUMMARY | 2024-08-18 16:12 | External Medical Summary | Summary of Care ---
Author Name Unknown Organization [facility] Address [address] [place] [address] Phone [phone] Care Team Providers Care Geodetic Technician Name Role Phone Amor Pate MD Primary Care Provider [phone] Reason for Visit * Reason Comments Follow Up Encounter Details Date Type Department Care Team ([facility] Contact Info) Description 06/17/2024 11:00 AM EST Telemedicine Hematology/Oncology, [facility] [address] [place] [address] Billy Basurto MD [address] [place] [address] Other iron deficiency anemias*; Bilateral calf pain Allergies No known active allergiesdocumented as of this encounter (statuses as of 06/17/2024) Medications Sennosides 8.6 MG Oral Tablet (Senokot) [...] in the morning. 30 Capsule 07/14/20 Active Multivitamin Adults Oral Tablet Take 1 Tablet by mouth in the morning. 30 Tablet 07/14/20 Active Lutein 6 MG Oral Capsule Take 1 Capsule by mouth in the morning. 30 Capsule 07/14/20 Active Furosemide 20 MG Oral Tablet (Lasix) Take 1 Tablet by mouth as needed (edema, swelling). 30 Tablet 07/14/20 Active DIURETIC TITRATION PLAN If no improvement on day 3, contact heart failure managing provider. 1 Each 07/14/20 Active Vitamin B-12 500 MCG Oral Tablet (vitamin B-12) Take one tab twice a week 26 Tablet 07/14/20 Active Biotin 1000 MCG Oral TabletIndication s:Routine [...] 45 Tablet 3 12/25/19 24 Active Nystatin 746547 UNIT/GM External CreamIndications :Candidal intertrigo Apply topically [...] MORNING 30 Tablet 5 05/28/20 24 Active Nitrofurantoin Monohyd Macro 100 MG Oral Capsule (Macrobid)Indica tions:Suspected urinary tract infection Take 1 Capsule by mouth in the morning and 1 Capsule before bedtime. Do all this for 5 days. 10 Capsule 03/13/20 24 2023 Discontinued traMADol HCl 50 MG Oral Tablet (Ultram) Take 1 Tablet by mouth every 6 hours as needed. 06/09/20 24 2023 Discontinued documented as of this encounter (statuses as of 06/17/2024) Active Problems Problem Noted Date Diagnosed Date [...] multicystic lesion of the pancreas CEA, FLUID 96928.0 ng/mL Final COMMENT Final The reference range [...] Plan (12/08/2021 5:25 PM EDT): S/p pacemaker intermediate designer current use of anticoagulant therapy 0 08/28/2010 [...] patient does not have a Power of Repairer Engine Production or Advanced Directives in place at this [...] as of this encounter (statuses as of 06/17/2024) Resolved Problems Problem Noted Date Diagnosed Date [...] this week. Pain of right lower leg 11/03/2022/08/2022 Chronic diastolic (congestive) heart failure 2 11/28/2023 [...] and resolved HTN, goal below 140/90 06/12/201108/12 /2024 First degree atrioventricular block 09/14/2010 02/04/2024 Encounter [...] as of this encounter (statuses as of 06/17/2024) Immunizations Name Administration Dates Next Due COVID-19 mRNA, LNP-s, No Pre serve, 2-Dose Series (BillShrink) 10/26/2020,09/30/2020 Pneumococcal Conjugate Vacc, 13 Valent (Prevnar) [...] Progress Notes * Billy Basurto MD - 06/17/2024 9:07 AM EST . Hematology/Oncology Outpatient Clinic Note [facility] HEMATOLOGY/ONCOLOGY - [facility] After connecting to the patient via [...] age 43, Mother - heart problems, of [place] Sister had heart issues SH Never smoker Nondrinker No drugs Used to work for the [employer], [employer], then worked at [email or web address]. 2 kids, 1 daughter 62, 1 son 56 4 grandchildren, 1 great grandchildren All healthy ___ INTERVAL HISTORY: Zulma Villar is a 88 year old female with a history as outlined above. Currently here for f/u visit today. 05/22: Legs feel a bit weak. 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 Energy is ok. Also intermittent pain in [...] good. Appetite is good. Weight is stable. Current Outpatient Medications Medication Sig Dispense Refill [...] mouth in the morning. 30 Capsule 0 Furosemide 20 MG Oral Tablet (Lasix) Take 1 Tablet by mouth as needed (edema, swelling). 30 Tablet 0 DIURETIC TITRATION PLAN If no improvement on day 3, contact heart failure managing provider. 1 Each0 Vitamin B-12 500 MCG Oral Tablet (vitamin B-12) Take one tab twice a week 26 Tablet 0 Biotin 1000 MCG Oral Tablet Take 1 Tablet by mouth in the morning. 30 Tablet 0 Tfafzme-Lbggemzob-Ighznmf D ER 600-40-500 MG-MG-UNIT Tablet Extended Release 24 Hour one daily (mayuse otc ) 30 Tablet 0 Folic Acid 0.8 MG Oral Capsule Take 1 Tablet by mouth in the morning. Atorvastatin Calcium 20 MG Oral Tablet (Lipitor) Take 1 Tablet by mouth daily. 90 Tablet 3 Metoprolol Succinate ER 25 MG Oral Tablet Extended Release 24 Hour (toPROL XL) Take 0.5 Tablets by mouth in the morning. 45 Tablet 3 Nystatin 733033 UNIT/GM External Cream Apply topically to affected [...] MOUTH IN THE MORNING 30 Tablet 5 No current facility-administered medications for this visit. [...] orders placed or performed in visit on 06/10/24 PT INR Result Value Ref Range Prothrombin Time 26.7 (H) 11.6 - 15.2 seconds INR 2.4 (H) 0.8 - 1.2 *Note: Due to [...] bit unsteady, using walker to get around. 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 If stable no further intervention needed but if worsens consider BM bx #ipmn? Vs other benign lesions in pancreas Following with Dr. Elena, had CT in October. 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 No growing mass suggestive of malignancy is demonstrated." Consider CT pancreas in Feb 2025. #high bp Recommend checking bp regularly at detention, with goal 130s/80s or better #pain in calves Ddimer check now I had a discussion with Zulma Villar regarding the plan of care, treatment [place] [id number] based on criteria I had a discussion with Zulma Villar regarding the plan of care, treatment and other issues. rtc 4 mo documented in this encounter Plan of Treatment Upcoming Encounters Date Type Department Care Team (Late st Contact Info) Description 06/22/2024 2:00 PM EST Home Visit [facility] [address] [place] [address] Allison Young RN 132 [facility] [place] [address] 07/08/2024 8:00 AM EST Laboratory Lab Mobile Phlebotomy [facility] [address] [place] [address] [facility], [facility] Mobile Home Draw [address] [place] [address] 07/09/2024 6:00 AM EST Anticoagulation Centralized Clinical Pharmacy Services, Derrek Denton [address] [place] [address] [place] [address] [place] [address] 07/10/2024 1:40 PM EST Home Visit [facility], [facility] [place] [place] [address] Kayla Thompson CRNP [address] [facility] [place] [place] [address] Zohaib Castillo [facility] Obstetrics Technician [address] [place] [address] 07/14/2024 12:00 PM EST Office Visit Gastroenterology, Yuan Meryl whitingwn [address] [place] [phone] Rashida Jerome PA-C 310 [facility] [place] [address] 07/16/2024 1:30 PM EST Scheduled Telephone [facility], [facility] [address] [facility] [place] [address] Cyndie Hilton, [place] [address] [facility] [address] 08/18/2024 3:30 PM EST Office Visit OtolaryngologyAdwoa [place] [address] [place] [address] Hema Hercules PA-C 27 [place] [address] 08/26/2024 5:40 PM EST Office Visit Family [place] Ac [address] [phone] Amor Pate MD 21 [facility] [place] [address] 09/10/2024 12:50 PM EST Office [facility], [facility] [address] [place] [address] Marilyn Ozuna PA-C [address] [place] [address] 11/03/2024 3:00 PM EDT Office Visit Cardiology, [address] [address] Stephanie Ramos PA-C [address] [place] [address] 12/07/2024 1:30 PM EDT Nurse Only Rheumatology, [address] [address] [place], Nurse Rheumatology [address] [place] [address] 12/31/2024 1:00 PM EDT Cardiac Studies Cardiology, [address] [address] [place] [facility] [address] [place] [address] 02/04/2025 12:00 PM EDT Home Visit Care at Home [address] [place] [address] Carol Mathew PA-C [address] [place] [address] 06/14/2025 2:00 PM EST Office Visit Rheumatology, [address] [address] Monster Jackman PA-C [address] [place] [address] Scheduled Orders Name Type Priority Associated Diagnoses Orde r Schedule D-DIMER Lab Routine Bilateral calf pain Expected: 06/17/2024, Expires: 06/17/2025 CBC WITH WBC DIFFERENTIAL Lab Routine Other iron deficiency anemias Expected: 09/17/2024, Expires: 06/17/2025 IRON SCREEN, INCLUDING TIBC Lab Routine Other iron deficiency anemias Expected: 09/17/2024, Expires: 06/17/2025 FERRITIN Lab Routine Other iron deficiency anemias Expected: 09/17/2024, Expires: 06/17/2025 Scheduled Procedures Name Priority Associated Diagnoses Date/Ti [...] Additional history exists CKD PHOS USE SMARTSET 19734 08/22/202408/05, 08/20/2023, 11/07/2022, Additional history exists HbA1c 10/14/2024 04/16/2024, 12/0 12/2022, 04/01/2023 Albumin/Creatinine Ratio 12/05/2024 12/06/2023, 0803/2023 Adult Wellness Visit 02/03/2025 02/04/2024, 02/29/20 23 Depression Screening 02/03/2025 02/04/2024, 12/10/19 24 DXA Scan 04/22/2025 04/22/2023, 04/05, 12/25/2018, Additional history exists CKD HGB USE SMARTSET 66678 05/06/202505/06, 05/06/2024, 03/02/2024, Additional history exists Pneumococcal Vaccine: 65+ Years Completed 02/01/2016, 10/27/2002 VITAMIN D LEVEL ONCE IN A LIFETIME-USE SMARTSET# 03997 Completed 04/16/2024, 09/16/2023, 10/20/2019, Additional history exists [...] this encounter Medical Devices Implanted Type Area First Assistant Manager Device Identifier Shelf Expiration Date Model / Serial / Lot Implant System, Trim-It Drill Pin [id number]" X 4" Implanted:Qty: 1 on 10/10/2017 by Sydney Castelan DPM at OR [facility] Right: Toe 04/04/2019 AR-4152DS / / [id number] Medtronic Attesta Surescan Pacemaker Implanted:Qty: 1 on 06/09/2020 by Chanel Lin DO at OR [facility] Left: Chest 08/01/2021 ATSR01 / [id number] / Nail Gamma3 Left [id number] - [id number] Implanted:Qty: 1 on 01/20/2021 by Alli Townsend MD at OR [facility] Left: Hip MILAN : TRAUMA 12/03/2023 3525-034 0S / / [id number] Screw Lag 10.5x95mm - [id number] Implanted:Qty: 1 on 01/20/2021 by Alli Townsend MD at OR [facility] Left: Hip MILAN : TRAUMA 11/02/2025 3060-009 5S / / [id number] Screw T2 Alpha Lock 5x47.5mm - [id number] Implanted:Qty: 1 on 01/20/2021 by Alli Townsend MD at OR [facility] Left: Hip MILAN : TRAUMA 05/04/2029 2360-504 7S / / [id number] documented as of this encounter Visit Diagnoses [...] kidney disease, unspecified CKD stage, unspecified whether detention insulin use (HCC) Aortic calcification (HCC) Atherosclerosis [...] of left buttock, stage 2 (HCC)- Primary Other iron deficiency anemias- Primary Bilateral calf pain Pain in limb documented in this encounter Advance Directives Documents on File Type Date Recorded Patient Field Placement Director Expl anation POLST 07/15/2023 [place] OR [facility] FOR LIFE-SUSTAINING TREATMENT * Full Code [...] First Alternate Health Care Agent Care Teams Geodetic Technician Relationship Specialty Start Date End Date Amor Pate MD [address] [place] [address] PCP - General Family Medicine 12/06/22 documented as of this encounter
--- OUTSIDE RECORDS SUMMARY | 2024-08-18 16:12 | External Medical Summary | Summary of Care ---
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 Abelardo Comments Documentation of Wktz-gj-Fuxq Encounter Addendum Patient Name: Zulma Villar I certify that this patient is under my care and that I, or a nurse practitioner or physician's child and youth program assistant working with me, had a ywix-fs-afkr encounter that meets the physician tahi-pa-ftxp encounter requirements with this patient on: 05/20/24 (MAGDALENA Avalos,[facility] at Home) The encounter with the patient was in whole, or in part, for the following medical condition, which is the primary reason for home health care (List medical condition): Gait dysfunction I certify that, based on my findings, the following services are medically necessary home health services: Physical Therapy To provide the following care/treatments: (All hospitalists not following the patient after discharge should complete this section): strength, gait training Primary Care Physician to follow home care plan of care after discharge: yes My clinical findings support the need for the above services because: frequent falls Further, I certify that my clinical findings support that this patient is homebound (i.e. Absences from home require considerable and taxing effort and are for medical reasons or shinto services or infrequently or of short duration when for other reason) because: Difficulty leaving home, does not drive Physician Signature: Date of Signature: Physician Printed Name: Amor Pate MD Reason for Visit * Reason Onset Date Comments Order Request 06/22/2024 Encounter Details Date Type Department Care Team (Late st Contact Info) Description 06/22/2024 Telephone [facility] [address] [place] [phone] Amor Pate MD [address] [facility] [place] [address] Order Request Allergies No known active allergiesdocumented as of this encounter (statuses as of 06/23/2024) Medications Sennosides 8.6 MG Oral Tablet (Senokot) [...] morning. 45 Tablet 3 4 Active Nystatin 199868 UNIT/GM External CreamIndications: Candidal intertrigo Apply topically [...] as of this encounter (statuses as of 06/23/2024) Active Problems Problem Noted Date Diagnosed Date [...] multicystic lesion of the pancreas CEA, FLUID 78814.0 ng/mL Final COMMENT Final The reference range [...] Plan (12/08/2021 5:25 PM EDT): S/p pacemaker long term acute care registered nurse current use of anticoagulant therapy 0 08/28/2010 [...] patient does not have a Power of Supervisor Ski Production or Advanced Directives in place at [...] as of this encounter (statuses as of 06/23/2024) Resolved Problems Problem Noted Date Diagnosed Date [...] Plan (12/04/2022 10:54 AM EDT): PCP gave [place] Has home health SN Seeing wound [...] as of this encounter (statuses as of 06/23/2024) Immunizations Name Administration Dates Next Due COVID-19 [...] Mikki Lezama RN documented in this encounter Miscellaneous Notes * Telephone Encounter - Kamla Calzada RN - 06/23/2024 8:50 AM EST Patient has [facility] RNCM visit today at 12:30pm Kamla Calzada RN, BSN nature photographerOsteologist [phone] option #1 * Telephone Encounter - Kamla Calzada RN - 06/23/2024 8:37 AM EST TT message to [facility] data integration developer electronics mechanic apprentice today. Requesting a [facility] RNCM visit be scheduled for today or tomorrow Kamla Calzada RN, BSN nature photographerOsteologist [phone] option #1 * Telephone Encounter - Kayla Thompson CRNP - 06/23/2024 8:31 AM EST Intake--please follow up, would recommend nurse visit today or tomorrow. * Telephone Encounter - Amor Pate MD - 06/23/2024 8:06 AM EST HH PT Referral placed. Please ask if they are referring to more frequent home health visits (nursing) or [facility]? They determine their own visit brian. Looking in Kayla Thompson with [facility]. Thanks! Amor Pate MD, [place] Family Physician Abelardo Singh * Telephone Encounter - Clover Mott LPN - 06/22/2024 3:18 PM EST Home PT referral pending Will pcp be willing to give verbal order to [facility] to increase home visits * Telephone Encounter - Rae Carreno OSA - 06/22/2024 2:57 PM EST Pt's daughter Alondra Babin requesting that [facility] increase their home visits to patient due to increased bilateral leg swelling/fluid retention, possible fluid "weeping" on her legs. She also requests new referral for at home PT due to balance issues; daughter states currently Pt is a fall risk and does bruise very easily; she already has several bruises as a result of not being steady on her feet. Please call Alondra Olaf to advise, . documented in this encounter Plan of Treatment Upcoming Encounters Date Type Department Care Team (Late st Contact Info) Description 06/23/2024 12:30 PM EST Home Visit Abelardo at [address] [place] [id number] Allison Young RN 132 [facility] [place] [address] 07/08/2024 8:00 AM EST Laboratory Lab Mobile Phlebotomy [facility] [address] [place] [address] [address] [facility], [facility] Mobile Home Draw [address] [place] [address] 07/09/2024 6:00 AM EST Anticoagulation Centralized Clinical Pharmacy Services, Derrek Denton [address] [place] [address] [place] [address] [facility], [address] [place] [address] 07/10/2024 1:40 PM EST Home Visit [facility] 132 [facility] [place] [address] Kayla Thompson CRNP [address] [place] [address] Zohaib Castillo, [facility] Health Car Mechanic Helper [address] [place] [address] 07/14/2024 12:00 PM EST [facility] 310 [facility] [place] [phone] Rashida Jerome PA-C 310 [facility] [place] [address] 07/16/2024 1:30 PM EST Scheduled Telephone [facility], [facility] [address] [facility] [place] [address] Cyndie Hilton, [place] [address] [facility] [place] [address] 08/18/2024 3:30 PM EST Office Visit Otolaryngology, [place] Pol[place] [address] [place] [address] Hema Hercules PA-C [address] [place] [address] 08/26/2024 5:40 PM EST Office Visit Family [facility], [place] [address] [facility] [place] [phone] Amor Pate MD [address] [facility] [place] [address] 09/10/2024 12:50 PM EST Office Visit Dermatology, [place] Caball[place] [address] [place] [address] Marilyn Ozuna PA-C [address] [place] [address] 09/17/2024 11:00 AM EST Laboratory Laboratory, [place] 21 [facility] [phone] [address] [address] 10/14/2024 11:00 AM EDT Telemedicine Hematology/Oncology, [address] [address] Billy Basurto MD [address] [place] [phone] Cart, Telemed [facility] Hem Onc Clinic [address] [place] [address] [place] [address] 11/03/2024 3:00 PM EDT Office Visit Cardiology, [address] [address] Stephanie Ramos PA-C [address] [place] [address] 12/07/2024 1:30 PM EDT Nurse Only Rheumatology, [address] [address] [place], Nurse Rheumatology [address] [place] [address] 12/31/2024 1:00 PM EDT Cardiac Studies Cardiology, [address] [address] [place], Pacer Clinic [address] [place], [place] [address] [address] 02/04/2025 12:00 PM EDT Home Visit Care at Home [address] [place] [address] Carol Mathew PA-C [address] [facility] [place] [address] 06/14/2025 2:00 PM EST Office Visit Rheumatology, [address] [address] Monster Jackman, [place] 5944 [facility], [place] [phone] Scheduled Procedures Name Priority Associated Diagnoses Date/Ti me ESOPHAGOGASTRODUODENOSCOPY ( EGD), FLEXIBLE, TRANSORAL, ENDOSCOPIC ULTRASOUND Recall Pancreatic cyst Scheduled Referrals Name Type Priority Associated Diagnoses Orde r Schedule HOME HEALTH REFERRAL OP Referral Within 10 days (routine) 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 falls Ordered: 06/23/2024 Health Maintenance Due Date Last Done Comments Diabetic Foot Exam 1953 Zoster Vaccines (2 of 3) 12/24/2011 10/29/2011 DTap/Tdap Vaccines (2 - Td or Tdap) 10/03/2022 10/03/2012, 07/04/2005, 08/22/1992 COVID-19 Vaccine (3 - season) 2024 10/26/2020, 09/30/2020 Diabetic Eye Exam 06/19/2024 06/19/2023, , 01/12/2019, Additional history exists CKD PHOS USE SMARTSET 30223 08/22/202408/05, 08/20/2023, 11/07/2022, Additional history exists HbA1c 10/14/2024 04/16/2024, 1212/2022, 04/01/2023 Albumin/Creatinine Ratio 12/05/2024 12/06/2023, 03/06 Adult Wellness Visit 02/03/2025 02/04/2024, 02/29/20 23 Depression Screening 02/03/2025 02/04/2024, 12/10/19 24 DXA Scan 04/22/2025 04/22/2023, 04/05, 12/25/2018, Additional history exists CKD HGB USE SMARTSET 32662 05/06/202505/06, 05/06/2024, 03/02/2024, Additional history exists Pneumococcal Vaccine: 65+ Years Completed 02/01/2016, 10/27/2002 VITAMIN D LEVEL ONCE IN A LIFETIME-USE SMARTSET# 47950 Completed 04/16/2024, 09/16/2023, 10/20/2019, Additional history exists [...] this encounter Medical Devices Implanted Type Area Travelift Operator Device Identifier Shelf Expiration Date Model / Serial / Lot Implant System, Trim-It Drill Pin [id number]" X 4" Implanted:Qty: 1 on 10/10/2017 by Sydney Castelan DPM at OR [facility] Right: Toe 04/04/2019 AR-[id number] / / [id number] Medtronic Attesta Surescan Pacemaker Implanted:Qty: 1 on 06/09/2020 by Chanel Lin DO at OR [facility] Left: Chest 08/01/2021 ATSR01 / [id number] / Nail [id number] Left [id number] - [id number] Implanted:Qty: 1 on 01/20/2021 by Alli Townsend MD at OR [facility] Left: Hip MILAN : TRAUMA 12/03/2023 3525-034 0S / / [id number] Screw Lag 10.5x95mm - [id number] Implanted:Qty: 1 on 01/20/2021 by Alli Townsend MD at OR [facility] Left: Hip MILAN : TRAUMA 11/02/2025 3060-009 5S / / [id number] Screw T2 Alpha Lock 5x47.5mm - [id number] Implanted:Qty: 1 on 01/20/2021 by Alli Townsend MD at OR [facility] Left: Hip MILAN : TRAUMA 05/04/2029 2360-504 7S / / [id number] documented as of this encounter Visit Diagnoses [...] kidney disease, unspecified CKD stage, unspecified whether long term acute care registered nurse insulin use (HCC) Aortic calcification (HCC) Atherosclerosis [...] of left buttock, stage 2 (HCC)- Primary Generalized weakness- Primary Other malaise and fatigue Gait dyspraxia Lack of coordination At high risk for falls Personal history of fall documented in this encounter Advance Directives Documents on File Type Date Recorded Patient Manager Of Administration Expl anation POLST 07/15/2023 [place] OR [facility] FOR LIFE-SUSTAINING TREATMENT * Full [...] First Alternate Health Care Agent Care Teams Sprinkler Fitter Apprentice Relationship Specialty Start Date End Date Amor Pate MD [address] [place] [address] [phone] PCP - General Family Medicine 12/06/22 documented as of this encounter
--- OUTSIDE RECORDS SUMMARY | 2024-08-18 16:12 | External Medical Summary | Summary of Care ---
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 Abelardo Comments Documentation of Wdot-wt-Aazc Encounter Addendum Patient Name: Zulma Villar I certify that this patient is under my care and that I, or a nurse practitioner or physician's assistant site manager working with me, had a kdud-hu-nesn encounter that meets the physician pusg-qv-npip encounter requirements with this patient on: 05/20/24 [...] effort and are for medical reasons or episcopal services or infrequently or of short duration when for other reason) because: Difficulty leaving home, does not drive Physician Signature: Date of Signature: Physician Printed Name: Amor Pate MD Reason for Visit * Reason Onset Date Comments Order Request 06/22/2024 Encounter Details Date Type Department Care Team (Late st Contact Info) Description 06/22/2024 Telephone [facility] [address] [place] [phone] Amor Pate MD 21 [facility] [place] [address] Order Request Allergies No known [...] morning. 45 Tablet 3 4 Active Nystatin 080121 UNIT/GM External CreamIndications: Candidal intertrigo Apply topically [...] multicystic lesion of the pancreas CEA, FLUID 34073.0 ng/mL Final COMMENT Final The reference range [...] Plan (12/08/2021 5:25 PM EDT): S/p pacemaker watermelon inspector current use of anticoagulant therapy 0 08/28/2010 [...] patient does not have a Power of Letter Of Credit Clerk or Advanced Directives in place at [...] - 06/23/2024 8:50 AM EST Patient has [facility] RNCM visit today at 12:30pm Kamla Calzada RN, BSN buying agentContent Editor [phone] option #1 * Telephone Encounter - Kamla Calzada RN - 06/23/2024 8:37 AM EST TT message to [facility] icu specialist compressor station engineer chief today. Requesting a [facility] RNCM visit be scheduled for today or tomorrow Kamla Calzada RN, BSN buying agentContent Editor [phone] option #1 * Telephone Encounter - Kayla Thompson CRNP - 06/23/2024 8:31 AM EST Intake--please follow up, would recommend nurse visit today or tomorrow. * Telephone Encounter - Amor Pate MD - 06/23/2024 8:06 AM EST HH PT Referral placed. Please ask if they are referring to more frequent home health visits (nursing) or [facility]? They determine their own visit brian. Looking [...] 12:30 PM EST Home Visit Abelardo at [address] [place] [address] Allison Young RN 132 [facility] [place] [address] 07/08/2024 8:00 AM EST Laboratory Lab Mobile Phlebotomy [facility] [address] [place] [address] [facility] Mobile Home Draw [address] [place] [address] 07/09/2024 6:00 AM EST Anticoagulation Centralized Clinical Pharmacy Services, Derrek Denton [address] [place] [address] [place] [address] [facility], [address] [place] [address] 07/10/2024 1:40 PM EST Home Visit [facility] 132 [facility] [place] [address] Kayla Thompson CRNP [address] [place] [address] Zohaib Castillo, [facility] Colored Liquid Plastic Applier [address] [place] [address] 07/14/2024 12:00 PM EST [facility] 310 [facility] [place] [phone] Rashida Jerome PA-C 310 [facility] [place] [address] 07/16/2024 1:30 PM EST Scheduled Telephone [facility], [facility] [address] [facility] [place] [address] Cyndie Hilton, [place] [address] [facility] [place] [address] 08/18/2024 3:30 PM EST Office Visit Otolaryngology, [place] Pol[place] [address] [place] [address] Hema Hercules PA-C [address] [place] [address] 08/26/2024 5:40 PM EST Office Visit Family [facility], [place] [facility] [place] [phone] Amor Pate MD [address] [facility] [place] [address] 09/10/2024 12:50 PM EST Office Visit Dermatology, [place] Caball[place] [address] [place] [address] Marilyn Ozuna PA-C [address] [place] [address] 09/17/2024 11:00 AM EST Laboratory Laboratory, [place] 21 [facility] [phone] [address] [address] 10/14/2024 11:00 AM EDT Telemedicine Hematology/Oncology, [address] [address] Billy Basurto MD [address] [place] [phone] Cart, Telemed [facility] Hem Onc Clinic [address] [place] [address] [place] [address] 11/03/2024 3:00 PM EDT Office Visit Cardiology, [address] [address] Stephanie Ramos PA-C [address] [place] [address] 12/07/2024 1:30 PM EDT Nurse Only Rheumatology, [address] [address] [place], Nurse Rheumatology [address] [place] [address] 12/31/2024 1:00 PM EDT Cardiac Studies Cardiology, [address] [address] [place], Pacer Clinic [address] [place], [place] [address] [address] 02/04/2025 12:00 PM EDT Home Visit Care at Home [address] [place] [address] Carol Mathew PA-C [address] [place] [address] 06/14/2025 2:00 PM EST Office Visit Rheumatology, [address] [address] Monster Jackman, [place] 9592 [facility], [place] [phone] Scheduled Procedures Name Priority Associated Diagnoses Date/Ti [...] Additional history exists CKD PHOS USE SMARTSET 43590 08/22/202408/05, 08/20/2023, 11/07/2022, Additional history exists HbA1c 10/14/2024 04/16/2024, 1212/2022, 04/01/2023 Albumin/Creatinine Ratio 12/05/2024 12/06/2023, 03/06 Adult Wellness Visit 02/03/2025 02/04/2024, 02/29/20 23 Depression Screening 02/03/2025 02/04/2024, 12/10/19 24 DXA Scan 04/22/2025 04/22/2023, 04/05, 12/25/2018, Additional history exists CKD HGB USE SMARTSET 72686 05/06/202505/06, 05/06/2024, 03/02/2024, Additional history exists Pneumococcal Vaccine: 65+ Years Completed 02/01/2016, 10/27/2002 VITAMIN D LEVEL ONCE IN A LIFETIME-USE SMARTSET# 79925 Completed 04/16/2024, 09/16/2023, 10/20/2019, Additional history exists [...] this encounter Medical Devices Implanted Type Area Camp Director Device Identifier Shelf Expiration Date Model / Serial / Lot Implant System, Trim-It Drill Pin [id number]" X 4" Implanted:Qty: 1 on 10/10/2017 by Sydney Castelan DPM at OR [facility] Right: Toe 04/04/2019 AR-[id number] / / [id number] Medtronic Attesta Surescan Pacemaker Implanted:Qty: 1 on 06/09/2020 by Chanel Lin DO at OR [facility] Left: Chest 08/01/2021 ATSR01 / [id number] / Nail [id number] Left [id number] - [id number] Implanted:Qty: 1 on 01/20/2021 by Alli Townsend MD at OR [facility] Left: Hip MILAN : TRAUMA 12/03/2023 3525-034 0S / / [id number] Screw Lag 10.5x95mm - [id number] Implanted:Qty: 1 on 01/20/2021 by Alli Townsend MD at OR [facility] Left: Hip MILAN : TRAUMA 11/02/2025 3060-009 5S / / [id number] Screw T2 Alpha Lock 5x47.5mm - [id number] Implanted:Qty: 1 on 01/20/2021 by Alli Townsend MD at OR [facility] Left: Hip MILAN : TRAUMA 05/04/2029 2360-504 7S / / [id number] documented as of this encounter Visit Diagnoses [...] kidney disease, unspecified CKD stage, unspecified whether watermelon inspector insulin use (HCC) Aortic calcification (HCC) Atherosclerosis [...] Documents on File Type Date Recorded Patient Rail Maintenance Worker Expl anation POLST 07/15/2023 [place] OR [facility] FOR LIFE-SUSTAINING TREATMENT * Full Code (Latest Code Status on File) Date Activated Date Inactivated Comments 08/21/2023 2:20 AM 08/23/2023 4:54 PM This order reflects the patients wishes [...] First Alternate Health Care Agent Care Teams Software Configuration Analyst Relationship Specialty Start Date End Date Amor Pate MD [address] [place] [address] PCP - General Family Medicine 12/06/22 documented as of this encounter
--- OUTSIDE RECORDS SUMMARY | 2024-08-18 16:12 | External Medical Summary | Summary of Care ---
Author Name Unknown Organization [facility] Address [address] [place] [address] Phone [phone] Care Team Providers Care [facility] Corpsman Name Role Phone Amor Pate MD Primary Care Provider +1 [phone] Reason for Visit * Reason Onset Date Comments Appointment 06/23/2024 Encounter Details Date Type Department Care Team (Late st Contact Info) Description 06/23/2024 Telephone [facility] [address] [place] [address] Keren Meyer OSA [address] [place] [address] Appointment Allergies No known active allergiesdocumented as of [...] morning. 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 Spoke with patient and confirmed. Patient fell and wants to be seen this week. documented in this encounter Plan of Treatment Upcoming Encounters Date Type Department Care Team (Late st Contact Info) Description 06/26/2024 12:30 PM EST [facility] Visit [facility] [address] [place] [address] Allison Young RN 132 [facility] [place] [address] 07/08/2024 8:00 AM EST Laboratory Lab Mobile Phlebotomy [facility] [address] [facility] [place] [address] [facility], [facility] Mobile Home Draw [address] [facility] [place] [address] 07/09/2024 6:00 AM EST Anticoagulation Centralized Clinical Pharmacy Services, [address] [place] [address] [facility], [address] [place] [address] 07/10/2024 1:40 PM EST [facility] Visit [facility] [place], [address] [place] [address] Kayla Thompson CRNP 132 [place] [address] Zohaib Castillo [facility] [address] [place] [address] 07/14/2024 12:00 PM EST Office Visit Gastroenterology, Francisco Hill [address] [facility] [phone] Rashida Jerome PA-C 310 [facility] [place] [address] 07/16/2024 1:30 PM EST Scheduled Telephone [facility], [facility] [address] [facility] [place] [address] Cyndie Hilton, [place] [address] [facility] [place] [address] 08/18/2024 3:30 PM EST Office Visit Otolaryngology, [place]ozada[place]ra[place] [address] [place] [address] Hema Hercules PA-C 27 [place] [address] 08/26/2024 5:40 PM EST Office Visit Family Psychiatric, [place] 21 [place] [phone] Amor Pate MD 21 [facility] [place] [address] 09/10/2024 12:50 PM EST Office Visit Dermatology, Adwoa Green [place] 27 Adwo[address] Neville Yasmany 140 [place] [address] Marilyn Ozuna PA-C 27 [address] Nev[address] ShethwFR[place]IS[place] cheng [address] 09/17/2024 11:00 AM EST Laboratory Laboratory, [place] 21 [facility] [place] [address] [place], [facility] 21 [facility] [address] 10/14/2024 11:00 AM EDT Telemedicine Hematology/Oncology, [facility] 400 [facility] [address] Billy Basurto MD 400 [facility] [phone] Cart, Telemed [facility] [address] [place] [address] 11/03/2024 3:00 PM EDT Office Visit Cardiology, [address] [place] [address] Stephanie Ramos PA-C 400 [place] [address] 12/07/2024 1:30 PM EDT Nurse Only Rheumatology, [address] [address] [place], Nurse Rheumatology [address] [place] [address] 12/31/2024 1:00 PM EDT Cardiac Studies Cardiology, [address] [place] [address] [place], Pacer Clinic [address] [place] [address] 02/04/2025 12:00 PM EDT Home Visit Care at Home [address] [place] [address] Carol Mathew PA-C [address] [place] [address] 06/14/2025 2:00 PM EST Office Visit Rheumatology, [address] [phone] Monster Jackman, PAVonda 6924 [place] [address] Scheduled Procedures Name Priority Associated Diagnoses Date/Ti [...] Additional history exists CKD PHOS USE SMARTSET 48903 08/22/202408/05, 08/20/2023, 11/07/2022, Additional history exists HbA1c 10/14/2024 04/16/2024, 12/2022, 04/01/2023 Albumin/Creatinine Ratio 12/05/2024 12/06/2023, 03/06 Adult Wellness Visit 02/03/2025 02/04/2024, 02/29/20 23 Depression Screening 02/03/2025 02/04/2024, 12/10/19 24 DXA Scan 04/22/2025 04/22/2023, 04/05, 12/25/2018, Additional history exists CKD HGB USE SMARTSET 65046 05/06/202505/06, 05/06/2024, 03/02/2024, Additional history exists Pneumococcal Vaccine: 65+ Years Completed 02/01/2016, 10/27/2002 VITAMIN D LEVEL ONCE IN A LIFETIME-USE SMARTSET# 37135 Completed 04/16/2024, 09/16/2023, 10/20/2019, Additional history exists [...] this encounter Medical Devices Implanted Type Area Department Operations Manager Device Identifier Shelf Expiration Date Model / Serial / Lot Implant System, Trim-It Drill Pin [id number](.078" X 4" Implanted:Qty: 1 on 10/10/2017 by Sydney Castelan DPM at OR [facility] Right: Toe 04/04/2019 AR-4152DS / / [id number] Medtronic Attesta Surescan Pacemaker Implanted:Qty: 1 on 06/09/2020 by Chanel Lin DO at OR [facility] Left: Chest 08/01/2021 ATSR01 / [id number] / Nail [id number] Left [id number] - [id number] Implanted:Qty: 1 on 01/20/2021 by Alli Townsend MD at OR [facility] Left: Hip MILAN : TRAUMA 12/03/2023 3525-034 0S / / [id number] Screw Lag 10.5x95mm - [id number] Implanted:Qty: 1 on 01/20/2021 by Alli Townsend MD at OR [facility] Left: Hip MILAN : TRAUMA 11/02/2025 3060-009 5S / / [id number] Screw T2 Alpha Lock 5x47.5mm - [id number] Implanted:Qty: 1 on 01/20/2021 by Alli Townsend MD at OR [facility] Left: Hip MILAN : TRAUMA 05/04/2029 2360-504 7S / / [id number] documented as of this encounter Advance Directives Documents on File Type Date Recorded Patient Armament Mechanic Expl anation POLST 07/15/2023 [place] OR [facility] FOR LIFE-SUSTAINING TREATMENT * Full Code (Latest [...] Name Relationship Healthcare Agent Relationship Communication Cody Aurea Spouse First Alternate Health Care Agent Alondra Babin Adult Child First Alternate Health Care Agent Care Teams Hospital Corpsman Relationship Specialty Start Date End Date Amor Pate MD 21 [place] [phone] PCP - General Family Medicine 12/06/22 documented as of this encounter
--- OUTSIDE RECORDS SUMMARY | 2024-08-18 16:12 | External Medical Summary | Summary of Care ---
Author Name Unknown Organization [facility] Address [address] [place] [address] Phone [phone] Care Team Providers Care Framer Name Role Phone Amor Pate MD Primary Care Provider [phone] Reason for Visit * Reason Onset Date Comments Home Health 03/16/2024 Encounter Details Date Type Department Care Team (Late st Contact Info) Description 03/16/2024 Telephone [facility] [address] [place] [address] Amor Pate MD 21 [place] [address] Home Health Allergies No known active allergiesdocumented as of this encounter (statuses as of 06/15/2024) Medications Sennosides 8.6 MG Oral Tablet (Senokot) [...] morning. 45 Tablet 3 4 Active Nystatin 940747 UNIT/GM External CreamIndications: Candidal intertrigo Apply topically to affected area 2 times a day. To affacted area for two weeks. 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 Dyslipidemia, goal LDL below 70 08/23/2003 Overview (03/11/2013): LDL (CALCULATED)(mg/dL) Rd Dt/Tm Resulted Value Status 03/07/13 9:10A 8/3/13 152* satisfactory no evid of sign atherosclerosis LDL (CALCULATED)(mg/dL) Rd Dt/Tm Resulted Value Status 09/14/10 9:35A 09/14/10 128 FINAL Lipid Panel Results: LDL (CALCULATED) (mg/dL) 12/07/03 9:45A 12/07/03 131* Final Assessment & Plan (12/04/2022 2:26 PM EDT): LDL at goal on atorvastatin Incipient senile cataract documented as of this encounter (statuses as of 06/15/2024) Resolved Problems Problem Noted Date Diagnosed Date [...] as of this encounter (statuses as of 06/15/2024) Immunizations Name Administration Dates Next Due COVID-19 mRNA, LNP-s, No Pre serve, 2-Dose Series (Pfizer) 10/26/2020,09/30/2020 Pneumococcal Conjugate Vacc, 13 Valent (Prevnar) 02/01/2016 Seasonal Influenza Vac., MDV , IM, 0.5 mL (Fluzone) 04/26/2014,04/23/2013,04/24/2012,2010,04/25/2010,05/24/2009,05/25/2008,1 ,06/22/2006 Seasonal Influenza, PF, 6 M & above, [...] No 06/09/2024 Does the household have a unm children's hospitallar source of income? (Household - for ages [...] encounter Miscellaneous Notes * Telephone Encounter - Blank Paige LPN - 03/16/2024 9:28 AM EDT HH Discharge Lizabeth, PT, Calling from: [facility] Patient is/has been discharged from Home Health PT on 03/12/24 Reports that the pt is able to walk with assistance of someone else. Pt is independent with her exercise program. At this point they are just watching the pt and walking her through her home which is not skillable. They have educated the pt on everything that they can. When pt goes to sit, she takes baby steps turns and flops to sit. Does not reach back like they have educated her. Feels that the pt just needs to walk more with her care aids. FYI to PCP * Telephone Encounter - Kadie Burgess OSA - 03/16/2024 9:26 AM EDT Reason for patient's call: Lizabeth from [facility] Caller was transferred to [facility] at the nurse line. documented in this encounter Plan of Treatment Upcoming Encounters Date Type Department Care Team (Late st Contact Info) Description 06/17/2024 11:00 AM EST Telemedicine Hematology/Oncology, [address] [place] [address] Billy Basurto MD 400 [facility] [place] [address] 06/17/2024 2:30 PM EST [facility] Visit [facility] [place], [address] [place] [address] Kayla Thompson CRNP 132 [facility] [address] Scarlett Nath, [facility] [place] 100 [place] [address] 06/22/2024 2:00 PM EST Home Visit [facility] [place], [address] [place] [address] Allison Young RN 132 [place] [address] 07/08/2024 8:00 AM EST Laboratory Lab Mobile Phlebotomy GL 400 [place] [address] Gl, [facility] Mobile Home Draw 400 [place] [address] 07/09/2024 6:00 AM EST Anticoagulation Centralized Clinical Pharmacy Services, [place] Corrie [address] [place] [address] [place] [address] Ccps, [address] [place] [address] 07/10/2024 1:40 PM EST Home Visit [facility], [address] [place] [address] Kayla Thompson CRNP 132 [facility] [place] [address] Zohaib Castillo [facility] Health [place] [address] [place] [address] 07/14/2024 12:00 PM EST Office Visit Gastroenterology, [facility] [place] 310 [facility] [place] [phone] Rashida Jerome PA-C 310 [facility] [place]FR[place] [address] 07/16/2024 1:30 PM EST Scheduled Telephone [facility], [facility] [address] [facility] [place] [address] Cyndie Hilton, N [address] [facility] [place] [address] 08/18/2024 3:30 PM EST Office Visit Otolaryngology, Meryl Polancown 27 [place] [address] Hema Hercules PA-C 27 [place] [address] 08/26/2024 5:40 PM EST Office Visit Family [facility], [place] [facility] [place] [phone] Amor Pate MD [facility] [place] [address] 09/10/2024 12:50 PM EST Office Visit Dermatology, Meryl Caballerown 27 Adwoa Lozada [facility] 140 [place] [address] Marilyn Ozuna PA-C 27 [place] [address] 11/03/2024 3:00 PM EDT Office Visit Cardiology, [place] 400 [place] [address] Stephanie Ramos PA-C 400 [place] [address] 12/07/2024 1:30 PM EDT Nurse Only Rheumatology, [address] [address] [place], Nurse Rheumatology [address] [place] [address] 12/31/2024 1:00 PM EDT Cardiac Studies Cardiology, [address] [address] [place], Pacer Clinic [address] [place] [address] 02/04/2025 12:00 PM EDT Home Visit Care at Home [address] [place] [address] Carol Mathew PA-C [address] [place] [address] 06/14/2025 2:00 PM EST Office Visit Rheumatology, [address] [address] Monster Jackman, PALaureenC 1866 [place] [address] Scheduled Procedures Name Priority Associated Diagnoses Date/Ti [...] Additional history exists CKD PHOS USE SMARTSET 99324 08/22/202408/05, 08/20/2023, 11/07/2022, Additional history exists HbA1c 10/14/2024 04/16/2024, 1212/2022, 04/01/2023 Albumin/Creatinine Ratio 12/05/2024 12/06/2023, 03/06 Adult Wellness Visit 02/03/2025 02/04/2024, 02/29/20 23 Depression Screening 02/03/2025 02/04/2024, 12/10/19 24 DXA Scan 04/22/2025 04/22/2023, 04/05, 12/25/2018, Additional history exists CKD HGB USE SMARTSET 45224 05/06/202505/06, 05/06/2024, 03/02/2024, Additional history exists Pneumococcal Vaccine: 65+ Years Completed 02/01/2016, 10/27/2002 VITAMIN D LEVEL ONCE IN A LIFETIME-USE SMARTSET# 60979 Completed 04/16/2024, 09/16/2023, 10/20/2019, Additional history exists [...] this encounter Medical Devices Implanted Type Area Residential Collections Device Identifier Shelf Expiration Date Model / Serial / Lot Implant System, Trim-It Drill Pin [id number](.078" X 4" Implanted:Qty: 1 on 10/10/2017 by Sydney Castelan DPM at OR [facility] Right: Toe 04/04/2019 AR-4152DS / / [id number] Medtronic Attesta Surescan Pacemaker Implanted:Qty: 1 on 06/09/2020 by Chanel Lin DO at OR [facility] Left: Chest 08/01/2021 ATSR01 / [id number] / Nail Gamma3 Left [id number] - [id number] Implanted:Qty: 1 on 01/20/2021 by Alli Townsend MD at OR [facility] Left: Hip MILAN : TRAUMA 12/03/2023 3525-034 0S / / [id number] Screw Lag 10.5x95mm - [id number] Implanted:Qty: 1 on 01/20/2021 by Alli Townsend MD at OR [facility] Left: Hip MILAN : TRAUMA 11/02/2025 3060-009 5S / / [id number] Screw T2 Alpha Lock 5x47.5mm - [id number] Implanted:Qty: 1 on 01/20/2021 by Alli Townsend MD at OR [facility] Left: Hip MILAN : TRAUMA 05/04/2029 2360-504 7S / / [id number] documented as of this encounter Advance Directives Documents on File Type Date Recorded Patient Baling Machine Tender Expl anation POLST 07/15/2023 [place] OR [facility] FOR [...] First Alternate Health Care Agent Care Teams Framer Relationship Specialty Start Date End Date Amor Pate MD 21 [place] [phone] PCP - General Family Medicine 12/06/22 documented as of this encounter
--- OUTSIDE RECORDS SUMMARY | 2024-08-18 16:12 | External Medical Summary | Summary of Care ---
Author Name Unknown Organization [facility] Address [address] [place] [address] Phone [phone] Care Team Providers Care Cash Accounting Clerk Name Role Phone Amor Pate MD Primary Care Provider [phone] Encounter Details Date Type Department Care Team (Late st Contact Info) Description 06/14/2024 Result Scan Unspecified Department Chanel Lin Eriac, DO 400 [place] [address] <No scans attached> Allergies No known active allergiesdocumented as of this encounter (statuses as of 06/14/2024) Medications Sennosides 8.6 MG Oral Tablet (Senokot) [...] morning. 45 Tablet 3 4 Active Nystatin 362145 UNIT/GM External CreamIndications: Candidal intertrigo Apply topically [...] THE MORNING 30 Tablet 5 4 Active traMADol HCl 50 MG Oral Tablet (Ultram) Take 1 Tablet by mouth every 6 hours as needed. 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 0 08/28/2010 [...] patient does not have a Power of Purchasing Contracting Clerk or Advanced Directives in place at [...] as of this encounter (statuses as of 06/14/2024) Resolved Problems Problem Noted Date Diagnosed Date [...] 08/31/09 9:48A 08/31/09 11.7* FINAL 01/27/08 10:01A 6/24/08 12.5 FINAL 03/05/05 12.7 08/29/01 12.4 04/08/98 [...] as of this encounter (statuses as of 06/14/2024) Immunizations Name Administration Dates Next Due COVID-19 [...] Mikki Gann RN documented in this encounter Plan of Treatment Upcoming Encounters Date Type Department Care Team (Late st Contact Info) Description 06/17/2024 11:00 AM EST Telemedicine Hematology/Oncology, [address] [place] [address] Billy Basurto MD 400 [facility] [phone] 06/17/2024 2:30 PM EST [facility] Visit [facility] [place], [address] [place] [address] Kayla Thompson CRNP 132 [place] [address] Scarlett Nath [facility] Aeronautical Engineering Teacher [address] [place] [address] 06/22/2024 2:00 PM EST [facility] Visit [facility] [place], [address] [place] [address] Allison Young RN 132 [place] [address] 07/08/2024 8:00 AM EST Laboratory Lab Mobile Phlebotomy GL 400 [place] [address] Gl, l Mobile Home Draw 400 [place] [address] 07/09/2024 6:00 AM EST Anticoagulation Centralized Clinical Pharmacy Services, [address] [place] [address] [facility], [address] [place] [address] 07/10/2024 1:40 PM EST [facility] Visit [facility], [facility] 132 [facility] [address] Kayla Thompson CRNP 132 [place] [address] Zohaib Castillo [facility] Aeronautical Engineering Teacher [facility] [place] [address] 07/14/2024 12:00 PM EST Office Visit Gastroenterology, [place] [address] [place] [phone] Rashida Jerome PA-C [address] [place] [address] 07/16/2024 1:30 PM EST Scheduled Telephone [facility], [facility] [address] [facility] [place] [address] Cyndie Hilton, RDN 1000 [address] [facility] [place] [address] 08/18/2024 3:30 PM EST Office Visit Otolaryngology, Francisco Polanco 27 [place] [address] Hema Hercules PA-C 27 [place] [address] 08/26/2024 5:40 PM EST Office Visit Family [facility], [place] [facility] [place] [phone] Amor Pate MD [facility] [place] [address] 09/10/2024 12:50 PM EST Office Visit Dermatology, Adwoa Meryl Greenwn 27 Adwoa Lozada [facility] 140 [place] [address] Marilyn Ozuna PA-C 27 [place] [address] 11/03/2024 3:00 PM EDT Office Visit Cardiology, [place] [address] [place] [address] Stephanie Ramos PA-C 400 [place] [address] 12/07/2024 1:30 PM EDT Nurse Only Rheumatology, [address] [address] [place], Nurse Rheumatology [address] [place] [address] 12/31/2024 1:00 PM EDT Cardiac Studies Cardiology, [address] [address] [place], Pacer Clinic [address] [place] [address] 02/04/2025 12:00 PM EDT Home Visit Care at Home [address] [place] [address] Carol Mathew PA-C [address] [place] [address] 06/14/2025 2:00 PM EST Office Visit Rheumatology, [address] [address] Monster Jackman, ALESIA 1272 [place] [address] Scheduled Procedures Name Priority Associated Diagnoses Date/Ti [...] Additional history exists CKD PHOS USE SMARTSET 84376 08/22/202408/05, 08/20/2023, 11/07/2022, Additional history exists HbA1c 10/14/2024 04/16/2024, 1212/2022, 04/01/2023 Albumin/Creatinine Ratio 12/05/2024 12/06/2023, 03/06 Adult Wellness Visit 02/03/2025 02/04/2024, 02/29/20 23 Depression Screening 02/03/2025 02/04/2024, 12/10/19 24 DXA Scan 04/22/2025 04/22/2023, 04/05, 12/25/2018, Additional history exists CKD HGB USE SMARTSET 09017 05/06/202505/06, 05/06/2024, 03/02/2024, Additional history exists Pneumococcal Vaccine: 65+ Years Completed 02/01/2016, 10/27/2002 VITAMIN D LEVEL ONCE IN A LIFETIME-USE SMARTSET# 51305 Completed 04/16/2024, 09/16/2023, 10/20/2019, Additional history exists [...] this encounter Medical Devices Implanted Type Area Cash Teller Device Identifier Shelf Expiration Date Model / Serial / Lot Implant System, Trim-It Drill Pin [id number](.078" X 4" Implanted:Qty: 1 on 10/10/2017 by Sydney Castelan DPM at OR [facility] Right: Toe 04/04/2019 AR-4152DS / / [id number] Medtronic Attesta Surescan Pacemaker Implanted:Qty: 1 on 06/09/2020 by Chanel Lin DO at OR [facility] Left: Chest 08/01/2021 ATSR01 / [id number] / Nail Gamma3 Left [id number] - [id number] Implanted:Qty: 1 on 01/20/2021 by Alli Townsend MD at OR [facility] Left: Hip MILAN : TRAUMA 12/03/2023 3525-034 0S / / [id number] Screw Lag 10.5x95mm - [id number] Implanted:Qty: 1 on 01/20/2021 by Alli Townsend MD at OR [facility] Left: Hip MIALN : TRAUMA 11/02/2025 3060-009 5S / / [id number] Screw T2 Alpha Lock 5x47.5mm - [id number] Implanted:Qty: 1 on 01/20/2021 by Alli Townsend MD at OR [facility] Left: Hip MILAN : TRAUMA 05/04/2029 2360-504 7S / / [id number] documented as of this encounter Procedures Procedure Name Priority Date/Time Associated Diagnosis Comments CARDIOLOGY SCANNED RESULT 06/14/2024 documented in this encounter Results * CARDIOLOGY SCANNED RESULT (06/14/2024) 06/14/2024 Chanel Lin DO OTHER Final R esult documented in this encounter Advance Directives Documents on File Type Date Recorded Patient Entry Level Assistant Manager Expl anation POLST 07/15/2023 [place] [facility] * Full Code (Latest [...] Name Relationship Healthcare Agent Relationship Communication Cody Hernandezff Spouse First Alternate Health Care Agent Alondra Babin Adult Child First Alternate Health Care Agent Care Teams Cash Accounting Clerk Relationship Specialty Start Date End Date Amor Pate MD 21 [place] [address] PCP - General Family Medicine 12/06/22 documented as of this encounter
--- OUTSIDE RECORDS SUMMARY | 2024-08-18 16:13 | External Medical Summary | Summary of Care ---
Author Name Unknown Organization [facility] Address [address] [place] [address] Phone [phone] Care Team Providers Care Supervisor Paper Coating Name Role Phone Amor Pate MD Primary Care Provider [phone] Reason for Visit * Reason Comments Rheum Follow Up [facility] Encounter Details Date Type Department Care Team (Late Contact Info) Description 06/08/2024 1:30 PM EST Office Visit Rheumatology, [address] [address] Monster Jackman PA-C [address] [place] [id number] Senile osteoporosis*; History of femur fracture Allergies No known active allergiesdocumented as of this encounter (statuses as of 06/09/2024) Medications Medication Sig Dispensed Refills Start Date End Date Status Sennosides 8.6 MG Oral Tablet (Senokot) Take 2 Tablets by mouth daily as needed for Constipation. 30 Tablet 07/14/2023 Active Additional Information Patient taking differently:2 Tablet Oral DAILY PRN, Constipation,Pt taking 1 every evening and additional 1 if needed, Reported on 11/26/2023 Ferrous Sulfate 325 (65 Fe) MG Oral Tablet (Feosol)Indications: Other iron deficiency anemias Take 1 tab Saturday and only. 8 Tablet 07/14/2023 Active Acetaminophen 325 MG Oral Tablet (Tylenol) Take 2 Tablets by mouth every 6 hours. 30 Tablet 07/14/2023 Active Vitamin D (Cholecalciferol) 25 MCG (1000 UT) Oral Capsule Take 1 Capsule by mouth in the morning. 30 Capsule 07/14/2023 Active Multivitamin Adults Oral Tablet Take 1 Tablet by mouth in the morning. 30 Tablet 07/14/2023 Active Lutein 6 MG Oral Capsule Take 1 Capsule by mouth in the morning. 30 Capsule 07/14/2023 Active Furosemide 20 MG Oral Tablet (Lasix) Take 1 Tablet by mouth as needed (edema, swelling). 30 Tablet 07/14/2023 Active DIURETIC TITRATION PLAN If no improvement on day 3, contact heart failure managing provider. 1 Each 07/14/2023 Active Vitamin B-12 500 MCG Oral Tablet (vitamin B-12) Take one tab twice a week 26 Tablet 07/14/2023 Active Biotin 1000 MCG Oral TabletIndications:Ro utine gynecological examination Take 1 Tablet by mouth in the morning. 30 Tablet 07/14/2023 Active Gsweywx-Bhwybkgpo-Sd tamin D ER 600-40-500 MG-MG-UNIT Tablet Extended Release 24 HourIndications:Kerry min D deficiency,Osteopeni a one daily (may use otc ) 30 Tablet 07/14/2023 Active Folic Acid 0.8 MG Oral Capsule Take 1 Tablet by mouth in the morning. Active Atorvastatin Calcium 20 MG Oral Tablet (Lipitor)Indications :Atherosclerosis of aorta (HCC) Take 1 Tablet by mouth daily. 90 Tablet 3 11/19/2023 Active Metoprolol Succinate ER 25 MG Oral Tablet Extended Release 24 Hour (toPROL XL) Take 0.5 Tablets by mouth in the morning. 45 Tablet 3 12/25/2023 Active Nystatin 160671 UNIT/GM External CreamIndications:Can didal intertrigo Apply topically to affected area 2 times a day. To affacted area for two weeks. 15 g 2 12/31/2023 Active Omeprazole 20 MG Oral Capsule Delayed Release (PriLOSEC)Indication s:GERD (gastroesophageal reflux disease) Take 1 capsule by mouth in the morning 90 Capsule 01/07/2024 Active Spironolactone 25 MG Oral Tablet (Aldactone)Indicatio ns:Tachy-nikki syndrome (HCC),HTN, goal below 140/90 Take 1 Tablet by mouth once a day on Saturday, Saturday, and Saturday only. 40 Tablet 3 03/16/2024 Active Warfarin Sodium 2 MG Oral Tablet (Coumadin) TAKE 1 TO 2 TABLETS BY MOUTH IN THE EVENING DIRECTED BY COUMADIN CLINIC 90 Tablet 1 04/10/2024 Active Sodium Hyaluronate 60 MG/3ML Intra-articular Prefilled Syringe (Durolane) Inject contents of prefilled syringe into the left knee joint once. 3 mL 04/14/2024 Active rOPINIRole HCl 0.25 MG Oral Tablet (Requip)Indications: Tremors of nervous system TAKE 1 TABLET BY MOUTH IN THE MORNING AND 1 IN THE EVENING 180 Tablet 05/06/2024 Active Sertraline HCl 50 MG Oral Tablet (Zoloft)Indications: Anxiety about health TAKE 1 TABLET BY MOUTH IN THE MORNING 30 Tablet 5 05/28/2024 Active Hospital, Clinic, or Other Facility Administered Medication Ordered Dose Route Frequency Start Date End Date Status Denosumab (Prolia) subcut inj 60 mgIndications:Senile osteoporosis,History of femur fracture 60 mg SC ONCE 06/08/2024 06/08/2024 Ended documented as of this encounter (statuses as of 06/09/2024) Active Problems Problem Noted Date Diagnosed Date Pressure injury of left buttock, stage 2 024 Last Assessment & Plan: Improved. Caregivers are applying duoderm or similar. Again discussed importance of offloading pressure. DM peripheral angiopathy 04/01/2024 Ambulatory dysfunction 01/04/2024 Last Assessment & Plan: Home PT continues to work with pt. Denies any falls. Using walker with ambulation Recurrent cystitis 01/04/2024 Last Assessment & Plan: Currently on bactrim for UTI. CHW will give specimen cups to collect urine in event of future symptoms. Pulmonary hypertension, unspecified 11/28/2023 Last Assessment & Plan: Continue diuretic Pressure injury of buttock, stage 3 11/28/2023 Last Assessment & Plan: See photo. Advised importance of offloading pressure--she is sitting in recliner all day and night. Recommended hospital bed and she refuses at this time. Home health to monitor, caregivers are currently applying desitin Type 2 diabetes mellitus wit h diabetic chronic kidney disease 08/12/2023 Non-healing ulcer of buttock, limited to breakdo wn of skin 08/12/2023 Last Assessment & Plan: Continue barrier cream Keep area clean and dry Type 2 diabetes mellitus wit h hemoglobin A1c goal of less than 7.0% 03/18/2023 Last Assessment & Plan: "RED FLAG" Diabetic symptoms: Generalized Weakness Goal [...] 03/04/2023 Internal hemorrhoids 03/04/2023 Cerebral atrophy 03/04/2023 Last Assessment & Plan: Present on brain imaging reviewed in the medical records. Explained that this is a common finding depending on age and other medical conditions but can contribute to things like memory loss and coordination issues. Other iron deficiency anemias 02/12/2023 Nontoxic single thyroid nodule 12/04/2022 Overview: Chest CT 10/26/22: IMPRESSION IMPRESSION: 1. No acute findings. 2. Cardiomegaly. 3. Small sliding hiatal hernia. 4. 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 Directed palpation and clinical correlation recommended. 5. Multiple fractures of the left posterior 2nd through 7th ribs, probably chronic. Directed palpation and clinical correlation recommended. . 6. Eight mm low-density lesion of the thyroid.No follow-up is recommended. Last Assessment & Plan: Noted on recent CT--8mm and no further follow up recommended Venous insufficiency 12/08/2021 Last Assessment & Plan: Suspect this is source of leg edema. Advised use of compression hose, on in am and off pm. 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 On prolia Gastroesophageal reflux disease without esophagi tis 08/04/2020 Last Assessment & Plan: Stable on omeprazole Neuropathy, lumbosacral (radicular) 07/13/2020 IPMN (intraductal papillary mucinous neoplasm) 0 02/03/2019 Overview: 01/07/2020 endo ultrasound stable x1 yr. No FNA plan CT 6 mths Fu by GI Last Assessment & Plan: Followed by GI Primary osteoarthritis of both hips 01/12/2019 Overview: 05/2017 X ray 1. Moderate osteoarthrosis left hip. 2. Mild osteoarthrosis right hip. Atherosclerosis of both carotid arteries 019 Overview: 06/2018 bilateral <50% (echogenic plaques) Superficial varicosities 08/15/2018 Osteoarthritis of both knees 05/29/2018 Overview: 05/29/2018 ref to ortho for viscosupp R knee Chronic atrial fibrillation, unspecified 018 Last Assessment & Plan: Rate controlled Continue coumadin per MTM Hearing loss of right ear 09/24/2017 Overview: Cont fu with Taylor Chronic midline low back pain without sciatica 0 04/24/2017 Overview: 04/24/2017 ref to pt See 04/17/17 Hammer toe of right foot 02/13/2017 Overview: 02/13/2017 Ref to pod History of iron deficiency anemia 10/03/2016 Last Assessment & Plan: Followed by hematology Hgb stable 10.1 Varicose vein of leg 02/01/2016 Pancreatic cyst 12/16/2015 Overview: 12/08/2018 repeat done /aspiration results pending (also [...] multicystic lesion of the pancreas CEA, FLUID 69945.0 ng/mL Final COMMENT Final The reference range [...] integrated into the clinical context for interpretation. Last Assessment & Plan: Followed by GI AK (actinic keratosis) 12/01/2014 Acquired cyst of kidney 04/20/2014 Overview: 04/20/2014 Bilateral renal cysts with probable right complex cyst Rpt 6 months. Cardiac pacemaker in situ 11/18/2013 Overview: [employer] ATSRO1 Mitral valve regurgitation 10/12/2013 Tachy-nikki syndrome 06/18/2013 Last Assessment & Plan: S/p pacemaker care home current use of anticoagulant therapy 0 08/28/2010 History of vitamin D deficiency 03/09/2010 Overview: Resolved 2009 Advance directive discussed with patient 005 Overview: 10/03/2016 forgot to bring 10/03/2016 Discussed advance [...] patient does not have a Power of Top Collar Baster or Advanced Directives in place at this time. Dyslipidemia, goal LDL below 70 08/23/2003 Overview: LDL (CALCULATED)(mg/dL) Rd Dt/Tm Resulted Value Status 03/07/13 9:10A 03/07/13 152* satisfactory no evid of sign atherosclerosis LDL (CALCULATED)(mg/dL) Rd Dt/Tm Resulted Value Status 09/14/10 9:35A 09/14/10 128 FINAL Lipid Panel Results: LDL (CALCULATED) (mg/dL) 12/07/03 9:45A 12/07/03 131* Final Last Assessment & Plan: LDL at goal on atorvastatin Incipient senile cataract documented as of this encounter (statuses as of 06/09/2024) Resolved Problems Problem Noted Date Diagnosed Date Resolved Date Blister of right foot 01/04/20242023 Last Assessment & Plan: Unclear etiology but does not appear to be on area of direct pressure. No infection, advised to leave blister intact. Continue to monitor, can apply protective dressing. Acute cystitis without hematuria 07/13/2023 11/28/2023 Complicated UTI (urinary tract infection) 07/08/2023 08/13/2023 Supratherapeutic INR 07/08/2023 024 Confusion 07/08/2023 02/04/2024 Generalized weakness 07/08/2023 Last Assessment & Plan: She has generalized weakness, some days worse [...] degree 03/04/2023 11/28/2023 Solar purpura 12/04/2022 08/12/2023 Last Assessment & Plan: Noted by derm in the past and per note pt reassured benign Wound of left leg, subsequent encounter 11/03/2022 11/28/2023 Last Assessment & Plan: Followed by wound clinic Wrap intact to leg Cellulitis of left lower extremity 11/03/2022 04/01/2023 Last Assessment & Plan: PCP kyra bartholomew yesteday Has home health SN Seeing wound clinic this week. Pain of right lower leg 11/03/2022 07/3 08/2022 Chronic diastolic (congestive) heart failure 2 11/28/2023 Last Assessment & Plan: Euvolemic today. Continue lasix 20mg daily History [...] of medications 10/12/2019 11/23/2021 Hypernatremia 06/09/2019 10/12/2019 Overview: 06/09/2019 Mild Admits does not drink much fluid estimates 24 oz a day total Admits eating out and occasionally eating canned foods Will obtain repeat with urinary sodium and osmolality on 06/29 Decubitus ulcer of sacral region, stage 2 03/31/2019 06/09/2019 Overview: 06/09/2019 resolved Gastro-esophageal reflux dis ease without esophagitis 03/17/2019 08/13/2023 Takes iron supplements 02/03/201904/01 Overview: 11/08/2020 will reduce to 3/week Coronary artery calcificatio n seen on CAT scan 09/12/2018 12/04/2022 Unequal blood pressure in upper extremities 06/12/2018 02/03/2019 Overview: 02/03/2019 On follow up measurements incl today blood pressure has been equal Raynaud's phenomenon without gangrene 06/11/2018 06/12/2018 Overview: 06/11/2018 see ph re Amlo , try Felodipine 2.5 Atrial fibrillation, chronic 03/24/2018 08/13/2023 Last Assessment & Plan: Rate controlled on metoprolol Warfarin stroke prophylaxis Solar purpura 03/24/2018 12/22/2018 Acquired absence of other right toe(s) 03/24/2018 11/08/2020 Aortic calcification 09/24/2017 024 Overview: CT pancreas 08/20/22: VESSELS: Calcified and noncalcified plaque throughout the abdominal aorta and its major branches. Last Assessment & Plan: Aortic Atherosclerosis noted on prior imaging. Continue with treatment including Blood pressure control Lipid control Laceration of right lower leg 08/20/2017 01/27/2018 Overview: 08/20/2017 sugg wound clinic by pain clinic provider Elevated sedimentation rate 06/10/2017 11/28/2023 Pain in both feet 02/13/2017 12/18/2018 Overview: 02/13/2017 Ref to pod Paresthesia of foot, bilateral 10/03/2016 03/04/2023 Overview: 06/10/2017 mild now off G. 10/03/2016 try Gabapentin 100 qhs History of hydronephrosis 02/01/2016 Hydronephrosis determined by ultrasound 11/01/2015 12/24/2018 Overview: 11/01/2015 see letter: renal ultrasound revealed new mild right-sided hydronephrosis (dilation of the kidney). Urology consultation is recommended. Other findings were: Stable bilateral renal cysts, and postvoid bladder volume is 57 mL.(`2 ou) My nurse will help you make arrangements for the urology visit. Knee pain, right 08/12/2015 12/12/2016 Seborrheic keratosis 12/01/2014 017 Encounter for screening mamm ogram for breast cancer 11/12/2013 11/23/2021 Overview: 07/13/2020 Mammogram was rescheduled to September 2020 due to pacemaker replacement 12/07/2014 6 mths again 03/15/2014 will get follow up in May 2014 11/12/2013 diagn needed-> 6 mths RIGHT BREAST: Findings are probably benign. A short interval follow-up is recommended in 6 months Dyslipidemia, goal LDL below 130 09/11/2013 04/15/2017 Subungual hematoma of foot 09/11/2012 0 04/27/2016 Urgency of urination 11/09/2011 013 Overview: 03/11/2013 no recc 03/11/2012 was due to UTI and resolved HTN, goal below 140/90 06/12/201108/12 First degree atrioventricular block 09/14/2010 02/04/2024 Encounter for screening mamm ogram for breast cancer 09/14/2010 12/12/2016 ATRIAL FIBRILLATION new onse t noted 08/28/10 rel to syncope 08/28/2010 02/03/2019 Overview: 03/11/2012 reg 06/12/2011 reg with occ extras 08/28/2010 new onset noted 08/28/10 rel to syncope Stress testing was nonischemic in November 2010 though with equivocal EKG response. Anticoagulation management encounter 08/28/2010 12/18/2018 Special screening for malign ant neoplasms, colon 07/18/2006 11/23/2021 Overview: 12/27/2016 Impression: - The examined portion of [...] 10 years LOSS OF WEIGHT resolved 03/05/200512/03 Overview: 08/27/2007 stable 07/18/2006 stable Congratulated on [place] diet 03/05/2005 -28 lb Macrocytic anemia 03/05/2005 02/04/2024 Overview: Hemoglobin Results: HGB(g/dL) Rd Dt/Tm Resulted Value [...] - 10.9 mcv 92 (uses no etoh) Last Assessment & Plan: Followed by hematology--next appt in Mar. Will get updated labs to ensure stability Per hematology--anemia of chronic disease, possible MDS Osteopenia 12/15/2003 02/04/2024 Overview: 04/20/2021 DEXA scan suggests high risk for [...] - resolved with weight reduction 08/23/2003 019 Overview: 07/18/2006 no sxs (since lost weight) PAROXYSMAL ATRIAL TACHYCARDIA no sxs 08/200907/17/2002 12/12/2016 Overview: 07/18/2006 no sxs Chest pain, non-cardiac 07/17/200212/03 Overview: 07/18/2006 no sxs PALPITATIONS resolved 06/01/20022018 Overview: 08/31/2008 no sxs History of hematuria 023 Overview: 11/21/2017 resolved 06/10/2017 still intermittent symptoms 10/15/2014 ultrasound cyst is smaller and less complex 04/20/2014 Bilateral renal cysts with probable right complex cyst. Recommend follow-up ultrasound in 6 months. 2. Right renal sinus cysts. No shadowing calculi. 07/18/2006 08/27/[address] 11/04 Blepharitis 12/08/2021 documented as of this encounter (statuses as of 06/09/2024) Immunizations Name Administration Dates Next Due COVID-19 mRNA, LNP-s, No Pre serve, 2-Dose Series (Beebrite) 10/26/2020,09/30/2020 Pneumococcal Conjugate Vacc, 13 Valent (Prevnar) [...] ages 0-17 years) Not on file 06/09/2024 Sex and Gender Information Value Date Recorded Sex Assigned at Female 12/22/2018 8:13 AM EDT Gender Identity Female 12/22/2018 8:13 AM EDT Sexual Orientation Straight 12/22/2018 8: 13 AM EDT Job Start Date Occupation Industry Not on file Not on file Not on file documented as of this encounter Last Filed Vital Signs Vital Sign Reading Time Taken Comments Blood Pressure 120/68 06/08/2024 1:39 PM EST Pulse - - Temperature 36.1 C (97 F) 06/08/2024 1:39 PM EST Respiratory Rate - - Oxygen Saturation - - Inhaled Oxygen Concentration - - Weight - - Height - - Body Mass Index - - documented in this encounter Functional Status Functional Status Response Date of Assess ment Are you deaf or do you have serious difficulty h earing? No 08/21/2023 Are you blind or do you have serious difficulty seeing, even when wearing glasses? No 08/21/2023 Do you have serious difficul ty walking or climbing stairs? (5 years old or older) Yes 08/22/2023 Do you have difficulty dress ing or bathing? (5 years old or older) Yes 08/21/2023 Because of a physical, menta l, or emotional condition, do you have difficulty doing errands alone such as visiting a doctor s office or shopping? (15 years old or older) No 08/21/19 24 Cognitive Status Response Date of Assessm ent Because of a physical, menta l, or emotional condition, do you have serious difficulty concentrating, remembering, or making decisions? (5 years old or older) No 08/21/2023 documented as of this encounter Progress Notes * Monster Jackman PA-C - 06/08/2024 1:46 PM EST [facility] ([facility]): follow up Supervised by: Dr. Geronimo Arredondo Previous Visit Plan from 09/14/2022 reviewed. Reason for visit: Patient seen today for further follow-up/evaluation of osteoporosis. Bone Health Summary: Risks: Falls since last [facility] visit: no Personal History of Fx since last [facility] Visit: no Prevention: Exercise : 3 or more times weekly: No, currently doing rehab Nutrition: eats calcium rich foods, Yes Gait: unsteady with walking, Yes, use of cane/walker, Yes, walker Calcium and Vitamin D supplements in adequate doses: Yes Current Smoker: No Chronic Glucocorticoid use: No Rheumatoid Arthritis: No Alcohol 3 or more per day: No Medications: Current Outpatient Medications Medication Sig Dispense Refill [...] mouth in the morning. 30 Tablet 0 Sqtuyec-Hiutcixzq-Lhqfdgg D ER 600-40-500 MG-MG-UNIT Tablet Extended Release [...] in the morning. 45 Tablet 3 Nystatin 447945 UNIT/GM External Cream Apply topically to affected [...] EVENING DIRECTEDBY COUMADIN CLINIC 90 Tablet 1 rOPINIRole HCl 0.25 MG Oral Tablet (Requip) TAKE 1 TABLET BY MOUTH IN THE MORNING AND 1 IN THE EVENING 180 Tablet 0 Sertraline HCl 50 MG Oral Tablet (Zoloft) TAKE 1 TABLET BY MOUTH IN THE MORNING 30 Tablet 5 Sodium Hyaluronate 60 MG/3ML Intra-articular Prefilled Syringe ([employer]i-[employer]) Inject contents of prefilled syringe into the left knee joint once. 3 mL 0 No current facility-administered medications for this visit. Social History: Social History Tobacco Use Smoking status: Never Smokeless tobacco: Never Vaping Use Vaping status: Never Used Substance Use Topics Alcohol use: No Drug use: No PHYSICAL EXAM: General appearance: NAD Eyes: Normal Heme/Lymph: goiter: No Musculoskeletal: Kyphosis Yes Heart: RRR with murmur Lungs: normal Diagnostic Testing: Results of labs and DXA were reviewed and discussed with the patient. Labs: Component Latest Ref Rng 04/16/2024 CREATININE 0.5 - 1.0 mg/dL 0.9 EGFR >=60 mL/min 62 CALCIUM 8.4 - 10.2 mg/dL 9.3 25-Hydroxy Vitamin D >19 ng/mL 74 DXA - Vertebral Fracture Assessment: Date: 04/22/2023 DXA Result: RESULTS: Right forearm: 0.682 gms/cm2 T-score: -0.2 Right total hip: 0.838 gms/cm2 T-score: -0.9 Assessment: High risk osteoporosis Hx femur fracture Plan: The following items are ordered or are in progress: 1. Education: Osteoporosis education was provided by the [facility] team (topics included disease process, DXA, calcium/vitamin D, osteoporosis medications - including administration instructions and risks/benefits, weight bearing exercise, fall prevention/safety). 2. Prevention: . Eye Examination recommended annually, as good vision may help to prevent falls . Exercise recommended: standing, walking, light lifting . Fall Prevention/Safety Education recommended and discussed . Continue walker at all times when ambulating . Continue calcium rich foods (goal of 3 servings daily) 3. Osteoporosis Medications : Continue Prolia 60mg subcutaneous injection every 6 months Resume Prolia given hx femur fracture Prolia administered today 4. Bone Density Testing: due 2 year(s) from previous. Ordered. 5. Laboratory: None needed 6. Followup: 6 months and a day for nurse visit for prolia and 1 year and two days with me for visit Monster Jackman PA-C [facility] Team The patient was discussed with me. I agree with the findings and plan as documented by Monster SINGH in this note. Geronimo Arredondo MD Rheumatology Department documented in this encounter Nursing Notes * Grace Mayberry LPN - 06/08/2024 1:42 PM EST Chief Complaint Patient presents with Rheum Follow Up [facility] documented in this encounter Plan of Treatment Upcoming Encounters Date Type Department Care Team (Late st Contact Info) Description 06/10/2024 8:30 AM EST Laboratory Lab Mobile Phlebotomy [facility] [address] [place] [address] [facility], [facility] Mobile Home Draw [address] [place] [address] 06/11/2024 6:00 AM EST Anticoagulation [facility], [address] [place] [address] [place] [address] 06/12/2024 2:30 PM EST Home Visit [facility] at [address] [place] [address] Allison Young RN [address] [facility] [place] [address] 06/17/2024 11:00 AM EST Telemedicine Hematology/Oncology, [facility] [address] [facility] [place] [address] Billy Basurto MD [address] [place] [phone] 06/17/2024 2:30 PM EST Home Visit [facility], [facility] [address] [place] [address] Kayla Thompson CRNP 132 [place] [address] Scarlett Nath [facility] Draw End Hand [address] [place] [address] 07/10/2024 1:40 PM EST Home Visit [facility], [facility] [address] [place] [address] Kayla Thompson CRNP [address] [place] [address] Zohaib Castillo [facility] [address] [place] [address] 07/14/2024 12:00 PM EST Office Visit Gastroenterology, [facility] [place] [address] [facility] [phone] Rashida Jerome PA-C [address] [facility] [place] [address] 07/16/2024 1:30 PM EST Scheduled Telephone [facility], [facility] [address] [facility] [place] [address] Cyndie Hilton, RDN [address] [facility] [place] [address] 08/18/2024 3:30 PM EST Office Visit Otolaryngology, [place] Pol[place] [address] [place] [address] Hema Hercules PA-C [address] [place] [address] 08/26/2024 5:40 PM EST Office Visit Family [facility], [place] [address] [place] [phone] Amor Pate MD [address] [place] [address] 09/10/2024 12:50 PM EST Office Visit Dermatology, [place] [address] [place] [address] Marilyn Ozuna PA-C [address] [place] [address] 11/03/2024 3:00 PM EDT Office Visit Cardiology, [address] [place] [address] Stephanie Ramos PA-C [address] [facility] [address] 12/07/2024 1:30 PM EDT Nurse Only Rheumatology, [address] [place] [address] [place], Nurse Rheumatology [address] [place] [address] 12/31/2024 1:00 PM EDT Cardiac Studies Cardiology, [address] [place] [address] [place] [facility] [address] [place], [place] [address] [address] 02/04/2025 12:00 PM EDT Home Visit Care at Home [address], [place] [id number] Carol Mathew PA-C [address] [place], [place] [id number] 06/14/2025 2:00 PM EST Office Visit Rheumatology, [address] [place] [address] Monster Jackman PA-C [address] [place], [place] [address] Scheduled Orders Name Type Priority Associated Diagnoses Orde r Schedule DEXA SCAN/BONE MINERAL AXIAL Medical Imaging Routine Senile osteoporosis History of femur fracture Expected: 04/23/2025, Expires: 07/08/2025 Scheduled Procedures Name Priority Associated Diagnoses Date/Ti me ESOPHAGOGASTRODUODENOSCOPY ( EGD), FLEXIBLE, TRANSORAL, ENDOSCOPIC ULTRASOUND Recall Pancreatic cyst Health Maintenance Due Date Last Done Comments Diabetic Foot Exam 1953 Zoster Vaccines (2 of 3) 12/24/2011 10/29/2011 *BISPHONATE OR OTHER ACCEPTABLE MEDICATION NEEDED FOR OSTEOPOROSIS (REFER TO SMARTSET #1146) 08/15/2022 DTap/Tdap Vaccines (2 - Td or Tdap) 10/03/2022 10/03/2012, 07/04/2005, 08/22/1992 COVID-19 Vaccine (3 - season) 2024 10/26/2020, 09/30/2020 Diabetic Eye Exam 06/19/2024 06/19/2023, , 01/12/2019, Additional history exists CKD PHOS USE SMARTSET 50841 08/22/202408/05, 08/20/2023, 11/07/2022, Additional history exists HbA1c 10/14/2024 04/16/2024, 1212/2022, 04/01/2023 Albumin/Creatinine Ratio 12/05/2024 12/06/2023, 03/06 Adult Wellness Visit 02/03/2025 02/04/2024, 02/29/20 23 Depression Screening 02/03/2025 02/04/2024, 12/10/19 24 DXA Scan 04/22/2025 04/22/2023, 04/05, 12/25/2018, Additional history exists CKD HGB USE SMARTSET 04884 05/06/202505/06, 05/06/2024, 03/02/2024, Additional history exists Pneumococcal Vaccine: 65+ Years Completed 02/01/2016, 10/27/2002 VITAMIN D LEVEL ONCE IN A LIFETIME-USE SMARTSET# 37728 Completed 04/16/2024, 09/16/2023, 10/20/2019, Additional history exists [...] this encounter Medical Devices Implanted Type Area Suture Gauger Device Identifier Shelf Expiration Date Model / Serial / Lot Implant System, Trim-It Drill Pin [id number]" X 4" Implanted:Qty: 1 on 10/10/2017 by Sydney Castelan DPM at OR [facility] Right: Toe 04/04/2019 AR-[id number] / / [id number] Medtronic Attesta Surescan Pacemaker Implanted:Qty: 1 on 06/09/2020 by Chanel Lin DO at OR [facility] Left: Chest 08/01/2021 ATSR01 / [id number] / Nail [id number] Left [id number] - [id number] Implanted:Qty: 1 on 01/20/2021 by Alli Townsend MD at OR [facility] Left: Hip MILAN : TRAUMA 12/03/2023 3525-034 0S / / [id number] Screw Lag 10.5x95mm - [id number] Implanted:Qty: 1 on 01/20/2021 by Alli Townsend MD at OR [facility] Left: Hip MILAN : TRAUMA 11/02/2025 3060-009 5S / / [id number] Screw T2 Alpha Lock 5x47.5mm - [id number] Implanted:Qty: 1 on 01/20/2021 by Alli Townsend MD at OR [facility] Left: Hip MILAN : TRAUMA 05/04/2029 [id number] 7S / / [id number] documented as of this encounter Visit Diagnoses Diagnosis Senile osteoporosis- Primary History of femur fracture Personal history of traumatic fracture documented in this encounter Administered Medications Inactive Administered Medications - up to 3 most recent administrations Medication Order MAR Action Action Date Dose Rate Site Denosumab (Prolia) subcut inj 60 mg 60 mg, Subcutaneous, ONCE, On 06/08/24 at 1430, For 1 dose Given 06/08/2024 1:54 PM EST 60 mg Arm L eft Upper documented in this encounter Advance Directives Documents on File Type Date Recorded Patient Director And Professor Expl anation POLST 07/15/2023 [place] OR [facility] FOR LIFE-SUSTAINING TREATMENT * [...] First Alternate Health Care Agent Care Teams Supervisor Paper Coating Relationship Specialty Start Date End Date Amor Pate MD [address] [place] [address] PCP - General Family Medicine 12/06/22 documented as of this encounter
--- OUTSIDE RECORDS SUMMARY | 2024-08-18 16:13 | External Medical Summary | Summary of Care ---
Author Name Unknown Organization [facility] Address [address] [place] [address] Phone [phone] Care Team Providers Care Library Historian Name Role Phone Amor Pate MD Primary Care Provider [phone] Encounter Details Date Type Department Care Team (Late Contact Info) Description 06/12/2024 2:30 PM EST [facility] [address] [facility] [place] [address] Allison Young, RN 132 [facility] [place] [address] Allergies No known active allergiesdocumented as of this encounter (statuses as of 06/12/2024) Medications Sennosides 8.6 MG Oral Tablet (Senokot) [...] morning. 45 Tablet 3 4 Active Nystatin 038470 UNIT/GM External CreamIndications: Candidal intertrigo Apply topically [...] as of this encounter (statuses as of 06/12/2024) Active Problems Problem Noted Date Diagnosed Date [...] multicystic lesion of the pancreas CEA, FLUID 98604.0 ng/mL Final COMMENT Final The reference range [...] Plan (12/08/2021 5:25 PM EDT): S/p pacemaker buttermaker current use of anticoagulant therapy 0 08/28/2010 [...] patient does not have a Power of Farm Agent or Advanced Directives in place at this [...] as of this encounter (statuses as of 06/12/2024) Resolved Problems Problem Noted Date Diagnosed Date [...] as of this encounter (statuses as of 06/12/2024) Immunizations Name Administration Dates Next Due COVID-19 mRNA, LNP-s, No Pre serve, 2-Dose Series (ShopVisible) 10/26/2020,09/30/2020 Pneumococcal Conjugate Vacc, 13 Valent (Prevnar) [...] Sign Reading Time Taken Comments Blood Pressure 110/58 06/12/2024 3:07 PM EST Pulse 60 06/12/2024 3:07 PM EST Temperature 36.6 C (97.8 F) 06/12/2024 3:07 PM ES T Respiratory Rate 20 06/12/2024 3:07 PM EST Oxygen Saturation 96% 06/12/2024 3:07 PM EST Inhaled Oxygen Concentration - - Weight - - Height - - Body Mass Index - - documented in this encounter Functional Status * Are you deaf or do you have serious difficulty hearing? Answer Date of Assessment Author No 08/21/2023 3:15 AM EST Mikki Lezama RN * Are you blind or do you have serious difficulty seeing, even when wearing glasses? Answer Date of Assessment Author No 08/21/2023 3:15 AM EST Mikki Lezama RN * Do you have serious difficulty [...] Progress Notes * Allison Young RN - 06/12/2024 3:00 PM EST Images from the original note were not included. Current Concerns: [facility] RNCM seeing patient for home follow up visit to assess wound on left buttock. Wound measures 1.2cm x 0.6cm with a depth of 0.2cm Small amount of serosanguinous drainage on the dressing. Photo was obtained but was accidentally deleted prior to getting saved to chart. Pt was not able to stand to retake photo due to weakness and pain in her knee. Caregivers are continuing to provide wound care every other day and as needed for soiled dressing. Cleansing with commercial wound cleanser and covering with duoderm. Pt spends most of the day in her recliner chair, uses a donut cushion. She has a roho type cushion, encouraged her to utilize this when sitting in her recliner. Encourage her to lay down for at least 30 minutes in the afternoon to get pressure completely off her buttock. Reviewed and stressed importance of offloading pressure to promote wound healing. Discussed return to wound clinic however transportation is a barrier as she is not able to safely navigate the steps in the front or rear entrance of her home. She needs transported by [facility] which is a high out of pocket cost for her. Plan to continue with weekly wound surveillance by the [facility] team; provider alternating with RN. C/O Right knee pain s/p injection. States she has pain in knee and down the front of her leg. She contact Dr. Blair, Ortho provider and was ordered Tramadol 50mg every 6 hours prn. She has taken 2 doses which improves that pain somewhat, but also makes her very sleepy. Pt reminded to contact [facility] at [phone] with any red flags, changes in condition, or concerns. Physical Exam: Physical Exam Constitutional: General: She is not in acute distress. Appearance: She is normal weight. Cardiovascular: Rate and Rhythm: Rhythm irregular. Pulses: Normal pulses. Heart sounds: Normal heart sounds. Pulmonary: Effort: Pulmonary effort is normal. Breath sounds: Normal breath sounds. Abdominal: General: Bowel sounds are normal. Palpations: Abdomen is soft. Skin: General: Skin is warm and dry. Capillary Refill: Capillary refill takes 2 to 3 seconds. Findings: Wound present. Comments: Left buttock stage 2 ulcer measuring 1.2cm x 0.6cm with depth of 0.2cm Neurological: Mental Status: She is alert and oriented to person, place, and time. Psychiatric: Mood and Affect: Mood normal. Review of Systems: Review of Systems Constitutional: Positive for fatigue. Negative for chills and fever. Respiratory: Negative for cough, shortness of breath and wheezing. Cardiovascular: Negative for chest pain, palpitations and leg swelling. Gastrointestinal: Negative for constipation and diarrhea. Genitourinary: Negative for difficulty urinating and dysuria. Intermittent incontinence Musculoskeletal: Positive for gait problem (unsteady - requires walker and contatc guard for all transfers and ambulation). Skin: Positive for wound. Neurological: Positive for headaches. Negative for dizziness and light-headedness. Psychiatric/Behavioral: Negative. Care Plan Goal Progress: Patient will maintain optimal mobility & activity level. (Progressing) Start: 04/20/24 Expected End: 08/04/24 GS - Patient will maintain skin integrity related to immobility (Progressing) Start: 05/07/24 Expected End: 07/06/24 Patient will have improved cardiac output. (Progressing) Start: 04/20/24 Expected End: 08/04/24 Patient & caregiver will demonstrate understanding. (Progressing) Start: 04/20/24 Expected End: 08/04/24 Orders Placed: No orders of the defined types were placed in this encounter. Medications Given: none Care Gaps: Care Gaps Care gaps closed this contact:: Home based procedures;Plan of Care (POC) (06/12/241706) Procedure performed: Wound care (06/12/241706) Type of plan of care (POC) care gap: Education and review of exacerbation plan (06/12/241706) documented in this encounter Plan of Treatment Upcoming Encounters Date Type Department Care Team (Late st Contact Info) Description 06/17/2024 11:00 AM EST Telemedicine Hematology/Oncology, [facility] [address] [place] [address] Billy Basurto MD [address] [place] [address] 06/17/2024 2:30 PM EST [facility] Visit [facility] [address] [place] [address] Kayla Thompson CRNP [address] [facility] [place] [address] Scarlett Nath, Community Health Filler Shredder [address] [place] [address] 06/22/2024 2:00 PM EST [facility] Visit [facility] [address] [place] [address] Allison Young, RN 132 [facility] [place] [address] 07/08/2024 8:00 AM EST Laboratory Lab Mobile Phlebotomy [facility] [address] [place] [address] [facility], [facility] Mobile Home Draw [address] [place] [address] 07/09/2024 6:00 AM EST Anticoagulation [facility], Derrek Denton [address] [place] [address] [place] [address] Ccps, [address] [place] [address] 07/10/2024 1:40 PM EST [facility] Visit [facility] at [address] [place] [address] Kayla Thompson CRNP [address] [place] [address] Zohaib Castillo, Community Health Filler Shredder [address] [place] [address] 07/14/2024 12:00 PM EST Office Visit Gastroenterology, [facility] [place] [address] [place] [address] Rashida Jerome PA-C [address] [facility] [place] [address] 07/16/2024 1:30 PM EST Scheduled Telephone [facility], [facility] [address] [facility] [place] [address] Cyndie Hilton, RDN [address] [place] [facility] [place] [address] 08/18/2024 3:30 PM EST Office Visit Otolaryngology, [place] Pol[address] [place] [address] Hema Hercules PA-C [address] [place] [address] 08/26/2024 5:40 PM EST Office Visit Family Practice, [place] [address] [facility] [place] [id number] Amor Pate MD [address] [facility] [place] [address] 09/10/2024 12:50 PM EST Office Visit Dermatology, [place] Caball[address] [place] [address] Marilyn Ozuna PA-C [address] [place] [address] 11/03/2024 3:00 PM EDT Office Visit Cardiology, [address] [address] Stephanie Ramos PA-C [address] [place] [address] 12/07/2024 1:30 PM EDT Nurse Only Rheumatology, [address] [address] [place], Nurse Rheumatology [address] [place] [address] 12/31/2024 1:00 PM EDT Cardiac Studies Cardiology, [address] [address] [place], [facility] [address] [place] [address] 02/04/2025 12:00 PM EDT Home Visit [facility] [address] [place] [address] Carol Mathew PA-C [address] [place] [address] 06/14/2025 2:00 PM EST Office Visit Rheumatology, [address] [address] Monster Jackman PA-C [address] [place] [address] Scheduled Procedures Name Priority Associated Diagnoses Date/Ti me ESOPHAGOGASTRODUODENOSCOPY ( EGD), FLEXIBLE, TRANSORAL, ENDOSCOPIC ULTRASOUND Recall Pancreatic cyst Health Maintenance Due Date Last Done Comments Diabetic Foot Exam 1953 Zoster Vaccines (2 of 3) 12/24/2011 10/29/2011 DTap/Tdap Vaccines (2 - Td or Tdap) 10/03/2022 10/03/2012, 07/04/2005, 08/22/1992 COVID-19 Vaccine ( season) 2024 10/26/2020, 09/30/2020 Diabetic Eye Exam 06/19/2024 06/19/2023, , 01/12/2019, Additional history exists CKD PHOS USE SMARTSET 76690 08/22/202408/05, 08/20/2023, 11/07/2022, Additional history exists HbA1c 10/14/2024 04/16/2024, 1212/2022, 04/01/2023 Albumin/Creatinine Ratio 12/05/2024 12/06/2023, 03/06 Adult Wellness Visit 02/03/2025 02/04/2024, 02/29/20 23 Depression Screening 02/03/2025 02/04/2024, 12/10/19 24 DXA Scan 04/22/2025 04/22/2023, 04/05, 12/25/2018, Additional history exists CKD HGB USE SMARTSET 54962 05/06/202505/06, 05/06/2024, 03/02/2024, Additional history exists Pneumococcal Vaccine: 65+ Years Completed 02/01/2016, 10/27/2002 VITAMIN D LEVEL ONCE IN A LIFETIME-USE SMARTSET# 77262 Completed 04/16/2024, 09/16/2023, 10/20/2019, Additional history exists [...] this encounter Medical Devices Implanted Type Area Manager Environmental Services Device Identifier Shelf Expiration Date Model / Serial / Lot Implant System, Trim-It Drill Pin [id number]" X 4" Implanted:Qty: 1 on 10/10/2017 by Sydney Castelan DPM at OR [facility] Right: Toe 04/04/2019 AR-[id number] / / [id number] Medtronic Attesta Surescan Pacemaker Implanted:Qty: 1 on 06/09/2020 by Chanel Lin DO at OR [facility] Left: Chest 08/01/2021 ATSR01 / [id number] / Nail [id number] Left [id number] - [id number] Implanted:Qty: 1 on 01/20/2021 by Alli Townsend MD at OR [facility] Left: Hip MILAN : TRAUMA 12/03/2023 3525-034 0S / / [id number] Screw Lag 10.5x95mm - [id number] Implanted:Qty: 1 on 01/20/2021 by Alli Townsend MD at OR [facility] Left: Hip MILAN : TRAUMA 11/02/2025 3060-009 5S / / [id number] Screw T2 Alpha Lock 5x47.5mm - [id number] Implanted:Qty: 1 on 01/20/2021 by Alli Townsend MD at OR [facility] Left: Hip MILAN : TRAUMA 05/04/2029 2360-504 7S / / [id number] documented as of this encounter Advance Directives Documents on File Type Date Recorded Patient Yard Attendant Expl anation POLST 07/15/2023 [place] OR [facility] FOR LIFE-SUSTAINING TREATMENT * Full Code [...] First Alternate Health Care Agent Care Teams Library Historian Relationship Specialty Start Date End Date Amor Pate MD [address] [place] [phone] PCP - General Family Medicine 12/06/22 documented as of this encounter
--- OUTSIDE RECORDS SUMMARY | 2024-08-18 16:13 | External Medical Summary | Summary of Care ---
Author Name Unknown Organization [facility] Address [address] [place] [address] Phone [phone] Care Team Providers Care Board Writer Name Role Phone Amor Pate MD Primary Care Provider [phone] Encounter Details Date Type Department Care Team (Late st Contact Info) Description 06/09/2024 10:30 AM EST [facility] [address] [place] [address] Kayla Thompson CRNP [address] [place] [address] Zohaib Castillo [facility] Agricultural Purchasing Agent [address] [place] [address] Pressure injury of left buttock, stage 2 (HCC)* Allergies No known active allergiesdocumented as of this encounter (statuses as of 06/10/2024) Medications Medication Sig Dispensed Refills Start Date [...] in the morning. 30 Tablet 07/14/2023 Active Gwdmuel-Twntahstm-Nn tamin D ER 600-40-500 MG-MG-UNIT Tablet Extended [...] morning. 45 Tablet 3 12/25/2023 Active Nystatin 082550 UNIT/GM External CreamIndications:Can didal intertrigo Apply topically [...] THE MORNING 30 Tablet 5 05/28/2024 Active documented as of this encounter (statuses as of 06/10/2024) Active Problems Problem Noted Date Diagnosed Date Pressure injury of left buttock, stage 2 024 Last Assessment & Plan: Patient is using Optifoam to area. Again discussed importance of offloading pressure and repositioning. She does not want to go the wound clinic. RN to continue to monitor we will keep visits as scheduled. 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 0 08/28/2010 [...] patient does not have a Power of Report Programmer or Advanced Directives in place at this [...] as of this encounter (statuses as of 06/10/2024) Resolved Problems Problem Noted Date Diagnosed Date [...] Confusion 07/08/2023 02/04/2024 Generalized weakness 07/08/2023 024 Last Assessment & Plan: She has generalized [...] 11/03/2022 04/01/2023 Last Assessment & Plan: PCP gave keluis a yesteday Has home [...] as of this encounter (statuses as of 06/10/2024) Immunizations Name Administration Dates Next Due COVID-19 mRNA, LNP-s, No Pre serve, 2-Dose Series (iiMonde) 10/26/2020,09/30/2020 Pneumococcal Conjugate Vacc, 13 Valent (Prevnar) [...] No 06/09/2024 Does the household have a [facility] source of income? (Household - for [...] Sign Reading Time Taken Comments Blood Pressure 108/56 06/09/2024 10:42 AM EST Pulse 53 06/09/2024 10:42 AM EST Temperature 36.3 C (97.3 F) 06/09/2024 10:[address] Respiratory Rate 18 06/09/2024 10:42 AM EST Oxygen Saturation 97% 06/09/2024 10:42 AM EST Inhaled Oxygen Concentration - - Weight [...] (15 years old or older) No 08/21/19 Cognitive Status Response Date of Assessm ent Because of a physical, menta l, or emotional condition, do you have serious difficulty concentrating, remembering, or making decisions? (5 years old or older) No 08/21/2023 documented as of this encounter Progress Notes * Z[facility]ib Castillo [facility] Agricultural Purchasing Agent - 06/09/2024 10:52 AM EST Telemedicine visit: Yes Patient location: HOME. I was not in a hospital or clinic location. After connecting through televideo, patient was verified with two unique identifiers. Patient (or authorized legal herbicide service sales representative) was then informed that this was a Telemedicine visit and being conducted confidentially over secure lines. Methods to assure confidentiality were taken. Patient acknowledged consent and understanding of privacy and security of the Telemedicine visit. The patient agreed to participate. [facility] Agricultural Purchasing Agent (KARI) documentation: CHW facilitated telehealth home visit Jake Castillo Community Health Worker Lead [facility] [place] [phone] * Kayla Thompson CRNP - 06/09/2024 10:30 AM EST Images from the original note were not included. [facility] Problem Oriented Charting Provider Visit Date: 06/09/2024 Time: 10:58 AM Assessment and Plan #1 Pressure injury of left buttock, stage 2 (HCC) (Primary) Assessment & Plan: Patient is using Optifoam to area. Again discussed importance of offloading pressure and repositioning. She does not want to go the wound clinic. RN to continue to monitor we will keep visits as scheduled. Additional Medical Decision Making: Plan as above. Continue to monitor. This note was verbally transcribed via dictation system and spelling/word errors can occur. Please contact the undersigned for any clarification/correction regarding dictated information if needed. Scheduled appointments in the next 60 days: Future Appointments-next 60 days Date/Time Provider Specialty Dept Phone 06/09/2024 10:30 AM Z[facility] Cast[facility] Agricultural Purchasing Agent; Kayla Thompson CRNP [facility] [phone] 06/10/2024 8:30 AM [facility] Home Draw Laboratory Processing [phone] 06/11/2024 6:00 AM [facility] [phone] 06/12/2024 2:30 PM Allison Young RN [facility] [phone] 06/17/2024 11:00 AM Billy Basurto MD Hematology Oncology [phone] 06/17/2024 2:30 PM Scarlett Nath [facility] Agricultural Purchasing Agent; Kayla Thompson CRNP [facility] [phone] 07/10/2024 1:40 PM Zohaib Castillo [facility] Agricultural Purchasing Agent; Kayla Thompson CRNP [facility] [phone] 07/14/2024 12:00 PM (Arrive by 11:45 AM) Rashida Jerome PA-C Gastroenterology [phone] 07/16/2024 1:30 PM Cyndie Hilton RDN [facility] [phone] 08/18/2024 3:30 PM (Arrive by 3:15 PM) Hema Hercules PA-C Otolaryngology [phone] 08/26/2024 5:40 PM (Arrive by 5:25 PM) Amor Pate MD Family Medicine [phone] 09/10/2024 12:50 PM (Arrive by 12:35 PM) Marilyn Ozuna PA-C Dermatology [phone] 11/03/2024 3:00 PM (Arrive by 2:45 PM) Stephanie Ramos PA-C Cardiology [phone] 12/07/2024 1:30 PM Nurse Francisoc Rheumatology Rheumatology [phone] 12/31/2024 1:00 PM (Arrive by 12:45 PM) Lucita Singh Cardiology [phone] 02/04/2025 12:00 PM Carol Mathew PA-C Family Medicine [phone] 06/14/2025 2:00 PM Monster Jackman PA-C Rheumatology [phone] A total of 15 minutes was spent face to face (via video-based telemedicine if designated as a telemedicine visit) Subjective Subjective Is this a Telemedicine Visit? Yes, Patient location: HOME. I was not in a hospital or clinic location. After connecting through televideo, patient was verified with two unique identifiers. Patient (or authorized legal herbicide service sales representative) was then informed that this was a Telemedicine visit and being conducted confidentially over secure lines. Methods to assure confidentiality were taken. Patient acknowledged consent and understanding of privacy and security of the Telemedicine visit. The patient agreed to participate. Reason For [facility] Visit: Follow-Up Current Concerns: Zulma Villar is a 88 year old female [facility]. Today's concerns are: Saw Dr. Blair on and had L knee injected and seemed to make pain worse. 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 She thinks it may be tramadol. Also reports that her buttock wound was just about closed but seemed to open again. Additional Review of Systems Constitutional: Negative for activity change, appetite change, chills and fever. Respiratory: Negative for shortness of breath. Cardiovascular: Negative for chest pain. Musculoskeletal: Positive for arthralgias. Negative for gait problem and myalgias. Denies any falls. Neurological: Negative for dizziness and light-headedness. I have reviewed the following results: Current Outpatient Medications Medication Sig Dispense Refill Acetaminophen 325 MG Oral Tablet (Tylenol) Take 2 Tablets by mouth every 6 hours. 30 Tablet 0 Atorvastatin Calcium 20 MG Oral Tablet (Lipitor) Take 1 Tablet by mouth daily. 90 Tablet 3 Biotin 1000 MCG Oral Tablet Take 1 Tablet by mouth in the morning. 30 Tablet 0 Mkfbkdz-Ikfnghzeu-Qiadzga D ER 600-40-500 MG-MG-UNIT Tablet Extended Release 24 Hour one daily (mayuse otc ) 30 Tablet 0 DIURETIC TITRATION PLAN If no improvement on day 3, contact heart failure managing provider. 1 Each0 Ferrous Sulfate 325 (65 Fe) MG Oral Tablet (Feosol) Take 1 tab Saturday and only. 8 Tablet 0 Folic Acid 0.8 MG Oral Capsule Take 1 Tablet by mouth in the morning. Furosemide 20 MG Oral Tablet (Lasix) Take 1 Tablet by mouth as needed (edema, swelling). 30 Tablet 0 Lutein 6 MG Oral Capsule Take 1 Capsule by mouth in the morning. 30 Capsule 0 Metoprolol Succinate ER 25 MG Oral Tablet Extended Release 24 Hour (toPROL XL) Take 0.5 Tablets by mouth in the morning. 45 Tablet 3 Multivitamin Adults Oral Tablet Take 1 Tablet by mouth in the morning. 30 Tablet 0 Nystatin 747028 UNIT/GM External Cream Apply topically to affected area 2 times a day. To affacted area for two weeks. 15 g 2 Omeprazole 20 MG Oral Capsule Delayed Release (PriLOSEC) Take 1 capsule by mouth in the morning 90 Capsule 0 rOPINIRole HCl 0.25 MG Oral Tablet (Requip) TAKE 1 TABLET BY MOUTH IN THE MORNING AND 1 IN THE EVENING 180 Tablet 0 Sennosides 8.6 MG Oral Tablet (Senokot) Take 2 Tablets by mouth daily as needed for Constipation. (Patient taking differently: Take 2 Tablets by mouth daily as needed for Constipation. Pt taking 1 every evening and additional 1 if needed) 30 Tablet 0 Sertraline HCl 50 MG Oral Tablet (Zoloft) TAKE 1 TABLET BY MOUTH IN THE MORNING 30 Tablet 5 Sodium Hyaluronate 60 MG/3ML Intra-articular Prefilled Syringe (iExplore) Inject contents of prefilled syringe into the left knee joint once. 3 mL 0 Spironolactone 25 MG Oral Tablet (Aldactone) Take 1 Tablet by mouth once a day on Saturday, Saturday, and Saturday only. 40 Tablet 3 Vitamin B-12 500 MCG Oral Tablet (vitamin B-12) Take one tab twice a week 26 Tablet 0 Vitamin D (Cholecalciferol) 25 MCG (1000 UT) Oral Capsule Take 1 Capsule by mouth in the morning. 30 Capsule 0 Warfarin Sodium 2 MG Oral Tablet (Coumadin) TAKE 1 TO 2 TABLETS BY MOUTH IN THE EVENING DIRECTEDBY COUMADIN CLINIC 90 Tablet 1 No current facility-administered medications for this visit. Objective Objective Vitals: 06/09/24 1042 Temp: 36.3 C (97.3 F) Pulse: 53 Resp: 18 SpO2: 97% BP: 108/56 Last Weights: Wt Readings from Last 3 Encounters: 05/05/24 67.1 kg (148 lb) 02/12/24 67.1 kg (148 lb) 12/10/23 68.1 kg (150 lb 3.2 oz) Last BPs: BP Readings from Last 4 Encounters: 06/09/24 108/56 06/08/24 120/68 06/01/24 (P) 128/70 10/16/24 138/84 Physical Exam Vitals reviewed. Constitutional: General: She is not in acute distress. Appearance: She is not toxic-appearing. Comments: elderly Cardiovascular: Rate and Rhythm: Normal rate and regular rhythm. Pulmonary: Effort: Pulmonary effort is normal. Breath sounds: Normal breath sounds. Skin: Coloration: Skin is not pale. Neurological: General: No focal deficit present. Mental Status: She is alert. Psychiatric: Mood and Affect: Mood normal. Behavior: Behavior normal. MAGDALENA Mendoza 10:11 AM documented in this encounter Miscellaneous Notes * Assessment & Plan Note - Kayla Thompson CRNP - 06/10/2024 12:29 PM EST Associated Problem(s): Pressure injury of left buttock, stage 2 (HCC) Patient is using Optifoam to area. Again discussed importance of offloading pressure and repositioning. She does not want to go the wound clinic. RN to continue to monitor we will keep visits as scheduled. documented in this encounter Plan of Treatment Upcoming Encounters Date Type Department Care Team (Late st Contact Info) Description 06/11/2024 6:00 AM EST Anticoagulation Centralized Clinical Pharmacy Services, [address] [place] [address] [place] [address] 06/12/2024 2:30 PM EST Home Visit [facility] [address] [place] [address] Allison Young RN [address] [place] [address] 06/17/2024 11:00 AM EST Telemedicine Hematology/Oncology, [address] [place] [phone] Billy Basurto MD [address] [place] [address] 06/17/2024 2:30 PM EST Home Visit [facility], [facility] [address] [place] [address] Kayla Thompson CRNP [address] [place] [address] Scarlett Nath, [facility] Agricultural Purchasing Agent [address] [place] [address] 07/10/2024 1:40 PM EST Home Visit [facility], [facility] [address] [place] [address] Kayla Thompson CRNP [address] [place] [address] Zohaib Castillo [facility] Agricultural Purchasing Agent [address] [place] [address] 07/14/2024 12:00 PM EST Office Visit Gastroenterology, [address] [phone] Rashida Jerome PA-C [address] [place] [address] 07/16/2024 1:30 PM EST Scheduled Telephone [facility], [facility] [address] [facility] [place] [address] Cyndie Hilton, TEM[place] [address] [facility] [place] [address] 08/18/2024 3:30 PM EST Office Visit Otolaryngology, [place] Loz[address] [place] [address] [place] [address] Hema Hercules PA-C [address] [place] [address] 08/26/2024 5:40 PM EST Office Visit [facility] [address] [facility] [place] [phone] Amor Pate MD [address] [facility] [place] [address] 09/10/2024 12:50 PM EST Office Visit Dermatology, [address] [place] [address] [facility] [address] [place] [address] Marilyn Ozuna PA-C [address] [place] [address] 11/03/2024 3:00 PM EDT Office Visit Cardiology, [place] [address] [facility] [place] [address] Stephanie Ramos [facility]C [address] [facility] [address] 12/07/2024 1:30 PM EDT Nurse Only Rheumatology, [address] [address] [place], Nurse Rheumatology [address] [place], [place] [address] [address] 12/31/2024 1:00 PM EDT Cardiac Studies Cardiology, [address] [place] [address] [facility] [address] [place] [address] [place] [address] 02/04/2025 12:00 PM EDT Home Visit [facility] [address] [place] [address] Carol Mathew PA-C [address] [place], [place] [id number] 06/14/2025 2:00 PM EST Office Visit Rheumatology, [address] [place] [address] Monster Jackman, [place] [address] [facility] [place] [address] Scheduled Procedures Name Priority Associated Diagnoses [...] Additional history exists CKD PHOS USE SMARTSET 11991 08/22/202408/05, 08/20/2023, 11/07/2022, Additional history exists HbA1c 10/14/2024 04/16/2024, 1212/2022, 04/01/2023 Albumin/Creatinine Ratio 12/05/2024 12/06/2023, 03/06 Adult Wellness Visit 02/03/2025 02/04/2024, 02/29/20 23 Depression Screening 02/03/2025 02/04/2024, 12/10/19 24 DXA Scan 04/22/2025 04/22/2023, 04/05, 12/25/2018, Additional history exists CKD HGB USE SMARTSET 00842 05/06/202505/06, 05/06/2024, 03/02/2024, Additional history exists Pneumococcal Vaccine: 65+ Years Completed 02/01/2016, 10/27/2002 VITAMIN D LEVEL ONCE IN A LIFETIME-USE SMARTSET# 25863 Completed 04/16/2024, 09/16/2023, 10/20/2019, Additional history exists [...] encounter Medical Devices Implanted Type Area Plant Packer Device Identifier Shelf Expiration Date Model / Serial / Lot Implant System, Trim-It Drill Pin [id number]" X 4" Implanted:Qty: 1 on 10/10/2017 by Sydney Castelan DPM at OR [facility] Right: Toe 04/04/2019 [id number] / / [id number] Medtronic Attesta Surescan Pacemaker Implanted:Qty: 1 on 06/09/2020 by Chanel Lin DO at OR [facility] Left: Chest 08/01/2021 [id number] / [id number] / Nail [id number] Left [id number] - [id number] Implanted:Qty: 1 on 01/20/2021 by Alli Townsend MD at OR [facility] Left: Hip MILAN : TRAUMA 12/03/2023 3525-034 [id number] / / [id number] Screw Lag 10.5x95mm - [id number] Implanted:Qty: 1 on 01/20/2021 by Alli Townsend MD at OR [facility] Left: Hip MILAN : TRAUMA 11/02/2025 [id number] [id number] / / [id number] Screw T2 Alpha Lock 5x47.5mm - [id number] Implanted:Qty: 1 on 01/20/2021 by Alli Townsend MD at OR [facility] Left: Hip MILAN : TRAUMA 05/04/2029 [id number] [id number] / / [id number] documented as of this encounter Visit Diagnoses Diagnosis Pressure injury of left buttock, stage 2 (HCC)- Primary documented in this encounter Advance Directives Documents on File Type Date Recorded Patient Desktop Technician Expl anation POLST 07/15/2023 [place] [facility] FOR LIFE-SUSTAINING TREATMENT * Full [...] First Alternate Health Care Agent Care Teams Board Writer Relationship Specialty Start Date End Date Amor Pate MD [address] [place] [address] PCP - General Family Medicine 12/06/22 documented as of this encounter
--- OUTSIDE RECORDS SUMMARY | 2024-08-18 16:13 | External Medical Summary | Summary of Care ---
Author Name Unknown Organization [facility] Address [address] [place] [address] Phone [phone] Care Team Providers Care Paving Block Cutter Name Role Phone Amor Pate MD Primary Care Provider [phone] [phone] Reason for Visit * Reason Comments Dosage Adjustment Via Phone (anticoag Cl inic) Encounter Details Date Type Department Care Team (Late st Contact Info) Description 06/11/2024 6:00 AM EST Anticoagulation Centralized Clinical [facility] Services, [facility] [place] [address] [place] [address] [place] [address] [place] [address] senior living current use of anticoagulant therapy* Allergies No known active allergiesdocumented as of this encounter (statuses as of 06/11/2024) Medications Medication Sig Dispensed Refills Start Date [...] in the morning. 30 Tablet 07/14/2023 Active Jylunkq-Ituqgkbyf-Lz tamin D ER 600-40-500 MG-MG-UNIT Tablet Extended [...] morning. 45 Tablet 3 12/25/2023 Active Nystatin 239816 UNIT/GM External CreamIndications:Can didal intertrigo Apply topically [...] as of this encounter (statuses as of 06/11/2024) Active Problems Problem Noted Date Diagnosed Date [...] multicystic lesion of the pancreas CEA, FLUID 95006.0 ng/mL Final COMMENT Final The reference range [...] 06/18/2013 Last Assessment & Plan: S/p pacemaker medical terminologist current use of anticoagulant therapy 0 08/28/2010 [...] patient does not have a Power of Real Estate Recruiter or Advanced Directives in place at this [...] as of this encounter (statuses as of 06/11/2024) Resolved Problems Problem Noted Date Diagnosed Date [...] 04/01/2023 Last Assessment & Plan: PCP kyra razaay Has home health SN Seeing wound clinic this week. Pain of right lower leg 11/03/2022 07/08/2022 Chronic diastolic (congestive) heart failure 11/28/2023 Last Assessment & Plan: Euvolemic today. [...] as of this encounter (statuses as of 06/11/2024) Immunizations Name Administration Dates Next Due COVID-19 [...] on file documented as of this encounter Functional Status Functional Status Response [...] as of this encounter Progress Notes * Minerva Flynn, bond trader - 06/11/2024 8:23 AM EST Contacts Contact Date/Time Type Contact Phone/Fax 06/11/2024 08:22 AM EST Phone (Outgoing) Zulma Villar (Self) [phone] (H) Spoke to Patient Subjective Patient Findings Negatives: Signs/symptoms of thrombosis, [...] communicated as noted by Pharmacist: Yes MINERVA FLYNN CPhT 06/11/2024, 8:23 AM * Kadie Byers RPh - 06/11/2024 7:51 AM EST Coumadin Clinic (region specific) Objective Current Warfarin Dose As of 06/11/2024 Warfarin maintenance plan: 4 mg (2 mg x 2) every Fri; 2 mg (2 mg x 1) all other days INR Result As of 06/11/2024 INR goal: 2.0-3.0 INR used for dosin.4 (06/10/2024) Assessment & Plan Warfarin Plan As of 06/11/2024 Full warfarin instructions: 4 mg every Fri; 2 mg all other days No change documented: Kadie Byers RPh Next INR check: 07/08/2024 Repeat PT/INR in 4 week(s) Weekly dose: not changed Additional Dosing Information: Description [facility] fax [phone] Boost- 1/day Tech to contact patient with dose instructions as noted. Kadie Byers RPh 06/11/2024, 7:51 AM documented in this encounter Plan of Treatment Upcoming Encounters Date Type Department Care Team (Late st Contact Info) Description 06/12/2024 2:30 PM EST [facility] Visit [facility], [facility] [address] [facility] [place] [address] Allison Young RN 132 [facility] [place] [address] 06/17/2024 11:00 AM EST Telemedicine Hematology/Oncology, [facility] [address] [place] [address] Billy Basurto MD [address] [place] [address] 06/17/2024 2:30 PM EST Home Visit [facility] [place], [facility] 132 [facility] [place] [address] Kayla Thompson CRNP [facility] [address] Scarlett Nath, Community [facility] Rug Drying Machine Operator [address] [place] [address] 07/09/2024 6:00 AM EST Anticoagulation Centralized Clinical Pharmacy Services, [address] [place] [address] Ccps, [address] [place] [address] 07/10/2024 1:40 PM EST Home Visit [facility] [place], [facility] 132 [facility] [place] [address] Kayla Thompson CRNP [address] [facility] [address] Zohaib Castillo [facility] Rug Drying Machine Operator [address] [place] [address] 07/14/2024 12:00 PM EST Office Visit Gastroenterology, [facility] [address] [place] [address] Rashida Jerome PA-C [address] [place] [address] 07/16/2024 1:30 PM EST Scheduled Telephone [facility], [facility] [address] [facility] [place] [address] Yobani Cyndie Pantoja, RDN [address] [facility] [place] [address] 08/18/2024 3:30 PM EST Office Visit Otolaryngology, [facility]wo[facility] Lozada [place] [address] [place] [address] Hema Hercules PA-C [address] [place] [address] 08/26/2024 5:40 PM EST Office Visit Family [facility], [place] [address] [place] [address] Amor Pate MD [address] [place] [address] 09/10/2024 12:50 PM EST Office Visit Dermatology, [place]a Green [place] [address] [facility] [address] [place] [address] Marilyn Ozuna PA-C [address] [place] [address] 11/03/2024 3:00 PM EDT Office Visit Cardiology, [place] [address] [facility] [place] [address] Stephanie Ramos PA-C [address] [facility] [place] [address] 12/07/2024 1:30 PM EDT Nurse Only Rheumatology, [address] [address] [place] Nurse Rheumatology [address] [place] [address] 12/31/2024 1:00 PM EDT Cardiac Studies Cardiology, [address] [address] [place], [facility] [address] [place] [address] 02/04/2025 12:00 PM EDT Home Visit Care at Home [address] [place], [place] [phone] Carol Mathew PA-C [address] [place], [place] [phone] 06/14/2025 2:00 PM EST Office Visit Rheumatology, [address] [id number] Monster Jackman PA-C [address] [place] [address] [email or web address] [address] Scheduled Procedures Name Priority Associated Diagnoses Date/Ti [...] Additional history exists CKD PHOS USE SMARTSET 03279 08/22/202408/05, 08/20/2023, 11/07/2022, Additional history exists HbA1c 10/14/2024 04/16/2024, 12/12/2022, 04/01/2023 Albumin/Creatinine Ratio 12/05/2024 12/06/2023, 0803/2023 Adult Wellness Visit 02/03/2025 02/04/2024, 02/29/20 23 Depression Screening 02/03/2025 02/04/2024, 12/10/19 24 DXA Scan 04/22/2025 04/22/2023, 04/05, 12/25/2018, Additional history exists CKD HGB USE SMARTSET 25788 05/06/202505/06, 05/06/2024, 03/02/2024, Additional history exists Pneumococcal Vaccine: 65+ Years Completed 02/01/2016, 10/27/2002 VITAMIN D LEVEL ONCE IN A LIFETIME-USE SMARTSET# 59222 Completed 04/16/2024, 09/16/2023, 10/20/2019, Additional history exists [...] this encounter Medical Devices Implanted Type Area Lead Cytogenetic Technologist Device Identifier Shelf Expiration Date Model / Serial / Lot Implant System, Trim-It Drill Pin [id number]" X 4" Implanted:Qty: 1 on 10/10/2017 by Sydney Castelan DPM at OR [facility] Right: Toe 04/04/2019 AR-[id number] / / [id number] Medtronic Attesta Surescan Pacemaker Implanted:Qty: 1 on 06/09/2020 by Chanel Lin DO at OR [facility] Left: Chest 08/01/2021 ATSR01 / [id number] / Nail [id number] Left [id number] - [id number] Implanted:Qty: 1 on 01/20/2021 by Alli Townsend MD at OR [facility] Left: Hip MILAN : TRAUMA 12/03/2023 3525-034 0S / / [id number] Screw Lag 10.5x95mm - [id number] Implanted:Qty: 1 on 01/20/2021 by Alli Townsend MD at OR [facility] Left: Hip MILAN : TRAUMA 11/02/2025 3060-009 5S / / [id number] Screw T2 Alpha Lock 5x47.5mm - [id number] Implanted:Qty: 1 on 01/20/2021 by Alli Townsend MD at OR [facility] Left: Hip MILAN : TRAUMA 05/04/2029 2360-504 7S / / [id number] documented as of this encounter Visit Diagnoses Diagnosis medical terminologist current use of anticoagulant therapy- Primary documented in this encounter Advance Directives Documents on File Type Date Recorded Patient Press Tender Incendiary Grenade Expl anation POLST 07/15/2023 [place] [facility]-SUSTAINING [...] First Alternate Health Care Agent Care Teams Paving Block Cutter Relationship Specialty Start Date End Date Amor Pate MD [address] [place] [id number] PCP - General Family Medicine 12/06/22 documented as of this encounter
--- OUTSIDE RECORDS SUMMARY | 2024-08-18 16:13 | External Medical Summary | Summary of Care ---
Author Name Unknown Organization [facility] Address [address] [place] [address] Phone [phone] Care Team Providers Care Business Systems Technician Name Role Phone Amor Pate MD Primary Care Provider [phone] [phone] Encounter Details Date Type Department Care Team (Late st Contact Info) Description 06/09/2024 Documentation Cardiology, [address] [phone] Yady Arriaza RN Allergies No known active allergiesdocumented as of [...] in the morning. 30 Tablet 07/14/2023 Active Qabsxfr-Neshigwtu-Ui tamin D ER 600-40-500 MG-MG-UNIT Tablet Extended [...] morning. 45 Tablet 3 12/25/2023 Active Nystatin 175228 UNIT/GM External CreamIndications:Can didal intertrigo Apply topically [...] multicystic lesion of the pancreas CEA, FLUID 93968.0 ng/mL Final COMMENT Final The reference range [...] 06/18/2013 Last Assessment & Plan: S/p pacemaker intermediate current use of anticoagulant therapy 0 08/28/2010 [...] patient does not have a Power of Rose Grower or Advanced Directives in place at this [...] other right toe(s) 03/24/2018 11/08/2020 Aortic calcification 09/24/201711/27/ 024 Overview: CT pancreas 08/20/22: VESSELS: Calcified [...] as of this encounter Progress Notes * Yady Arriaza RN - 06/09/2024 2:45 PM EST Patient is scheduled for a remote monitoring pacer check. It has not arrived. Patient contacted. They were ask to send a manual transmission. Yady Arriaza RN documented in this encounter Plan of Treatment Upcoming Encounters Date Type Department Care Team (Late st Contact Info) Description 06/10/2024 8:30 AM EST Laboratory Lab Mobile Phlebotomy [facility] [address] [address] [facility], [facility] Mobile Home Draw [address] [place] [address] 06/11/2024 6:00 AM EST Anticoagulation Centralized Clinical Pharmacy Services, Derrek [place] [address] [place] [address] [place] [address] Ccps, [address] [place] [address] 06/12/2024 2:30 PM EST [facility] Visit [facility], [facility] 132 [facility] [place] [address] Allison Young RN 132 [place] [address] 06/17/2024 11:00 AM EST Telemedicine Hematology/Oncology, [facility] [address] [place] [address] Billy Basurto MD [address] [place] [address] 06/17/2024 2:30 PM EST Home Visit [facility], [facility] 132 [facility] [place] [address] Kayla Thompson CRNP 132 [place] [address] Scarlett Nath Community [facility] Answering Service Telephone Operator [facility] [place] [address] 07/10/2024 1:40 PM EST Home Visit [facility], [facility] 132 [facility] [place] [address] Kayla Thompson CRNP 132 [facility] [place] [address] Zohaib Castillo [facility] Answering Service Telephone Operator [facility] [place] [address] 07/14/2024 12:00 PM EST Office Visit Gastroenterology, [address], [place] [address] [place] [address] Rashida Jerome PA-C [address] [place] [address] 07/16/2024 1:30 PM EST Scheduled Telephone [facility], [facility] [address] [facility] [place] [address] Yobani Cyndie Pantoja, RDN [address] [facility] [place] [address] 08/18/2024 3:30 PM EST Office Visit Otolaryngology, [place] [address] [place] [address] Hema Hercules PA-C 27 [place] [address] 08/26/2024 5:40 PM EST Office Visit Family Practice, [place] [facility] [place] [phone] Amor Pate MD [facility] [place] [address] 09/10/2024 12:50 PM EST Office Visit Dermatology, Adwoa Meryl [place] [address] [place] [address] [place] [address] Marilyn Ozuna PA-C 27 [place] [address] 11/03/2024 3:00 PM EDT Office Visit Cardiology, [place] [address] [place] [address] Stephanie Ramos PA-C [address] [place] [address] 12/07/2024 1:30 PM EDT Nurse Only Rheumatology, [address] [address] [place], Nurse Rheumatology [address] [place] [address] 12/31/2024 1:00 PM EDT Cardiac Studies Cardiology, [address] [address] [place] [facility] [address] [place] [address] 02/04/2025 12:00 PM EDT Home Visit Care at Home [address] [place] [address] Carol Mathew PA-C [address] [place] [address] 06/14/2025 2:00 PM EST Office Visit Rheumatology, [address] [address] Monster Jackman PA-C [address] [employer] [place] [address] Scheduled Procedures Name Priority Associated Diagnoses Date/Ti [...] Additional history exists CKD PHOS USE SMARTSET 95542 08/22/202408/05, 08/20/2023, 11/07/2022, Additional history exists HbA1c 10/14/2024 04/16/2024, 1212/2022, 04/01/2023 Albumin/Creatinine Ratio 12/05/2024 12/06/2023, 0803/2023 Adult Wellness Visit 02/03/2025 02/04/2024, 02/29/20 23 Depression Screening 02/03/2025 02/04/2024, 12/10/19 24 DXA Scan 04/22/2025 04/22/2023, 04/05, 12/25/2018, Additional history exists CKD HGB USE SMARTSET 02410 05/06/202505/06, 05/06/2024, 03/02/2024, Additional history exists Pneumococcal Vaccine: 65+ Years Completed 02/01/2016, 10/27/2002 VITAMIN D LEVEL ONCE IN A LIFETIME-USE SMARTSET# 97186 Completed 04/16/2024, 09/16/2023, 10/20/2019, Additional history exists [...] this encounter Medical Devices Implanted Type Area Concrete Block Mason Device Identifier Shelf Expiration Date Model / Serial / Lot Implant System, Trim-It Drill Pin [id number]" X 4" Implanted:Qty: 1 on 10/10/2017 by Sydney Castelan DPM at [facility] Right: Toe 04/04/2019 AR-[id number] / / [id number] [facility] Medtronic Attesta Surescan Pacemaker Implanted:Qty: 1 on 06/09/2020 by Chanel Lin DO at OR [facility] Left: Chest 08/01/2021 ATSR01 / [id number] / Nail [id number] Left [id number] - [id number] Implanted:Qty: 1 on 01/20/2021 by Alli Townsend MD at OR [facility] Left: Hip MILAN : TRAUMA 12/03/2023 3525-034 0S / / [id number] Screw Lag 10.5x95mm - [id number] Implanted:Qty: 1 on 01/20/2021 by Alli Townsend MD at OR [facility] Left: Hip MILAN : TRAUMA 11/02/2025 3060-009 5S / / [id number] Screw T2 Alpha Lock 5x47.5mm - [id number] Implanted:Qty: 1 on 01/20/2021 by Alli Townsend MD at OR [facility] Left: Hip MILAN : TRAUMA 05/04/2029 2360-504 7S / / [id number] documented as of this encounter Advance Directives Documents on File Type Date Recorded Patient Vending Mechanic Expl anation POLST 07/15/2023 [place] [facility] FOR [...] First Alternate Health Care Agent Care Teams Business Systems Technician Relationship Specialty Start Date End Date Amor Pate MD [address] [place] [address] PCP - General Family Medicine 12/06/22 documented as of this encounter
--- OUTSIDE RECORDS SUMMARY | 2024-08-18 16:13 | External Medical Summary ---
Author Name Unknown Address Unknown Organization K1F:[facility] - [place] [address] Laboratory Report Ordering Provider Test Date Status ANDREW HOOVER 06/10/2024 11:35:55 Final Please draw PT/INR every 1-4 weeks or as requested by the [facility] Coumadin Clinic

Warfarin Therapy
INR: 2.0-3.0 conventional anticoagulation
INR: 2.5-3.5 high intensity anticoagulation Observation Date Value Abnormality Reference (Units ) Status PT 06/10/2024 11:35:55 26.7 Above high normal 11 .6-15.2 (seconds) Final INR 06/10/2024 11:35:55 2.4 Above high normal 0. 8-1.2 Final Performing Location [facility] - [address] [place] [address]
--- OUTSIDE RECORDS SUMMARY | 2024-08-18 16:14 | External Medical Summary | Summary of Care ---
Author Name Unknown Organization [facility] Address [address] [place] [address] Phone [phone] Care Team Providers Care Council Member Name Role Phone Amor Pate MD Primary Care Provider [phone] Reason for Visit * Reason Onset Date Comments [facility]: Maintenance 06/03/2024 Encounter Details Date Type Department Care Team (Late st Contact Info) Description 06/03/2024 Telephone [facility] [address] [address] Emelia Myers RN [address] [place] [address] [facility]: Maintenance Allergies No known active allergiesdocumented as of this encounter (statuses as of 06/03/2024) Medications Medication Sig Dispensed Refills Start Date [...] tab Saturday and Thursdays only. 8 Tablet 07/14/2023 Active Acetaminophen 325 [...] in the morning. 30 Tablet 07/14/2023 Active Qkrlajz-Gkqjtjocx-Ao tamin D ER 600-40-500 MG-MG-UNIT Tablet Extended [...] morning. 45 Tablet 3 12/25/2023 Active Nystatin 382971 UNIT/GM External CreamIndications:Can didal intertrigo Apply topically [...] as of this encounter (statuses as of 06/03/2024) Active Problems Problem Noted Date Diagnosed Date [...] multicystic lesion of the pancreas CEA, FLUID 80495.0 ng/mL Final COMMENT Final The reference range [...] 06/18/2013 Last Assessment & Plan: S/p pacemaker detention current use of anticoagulant therapy 0 08/28/2010 [...] patient does not have a Power of Major Assembler or Advanced Directives in place at this [...] as of this encounter (statuses as of 06/03/2024) Resolved Problems Problem Noted Date Diagnosed Date [...] as of this encounter (statuses as of 06/03/2024) Immunizations Name Administration Dates Next Due COVID-19 [...] the money to buy more. Never true 05/20/20 24 Within the past 12 months, t he food you bought just didn't last and you didn't have money to get more. Never true 05/20/2024 Childcare Answer Date Recorded Do you feel overwhelmed with taking care of a child, family member or friend? No 05/20/2024 Does your family need help f inding childcare? (Household - for ages 0-17 years) Not on file 05/20/2024 Clothing Answer Date Recorded Have you been unable to get clothing when it was really needed? No 05/20/2024 Is your family able to get c lothes or diapers when needed? (Household - for ages 0-17 years) Not on file 05/20/2024 Personal Safety Answer Date Recorded Do you feel unsafe or have concerns for your saf ety? No 05/20/2024 Do you have concerns for you r family's safety? (Household - for ages 0-17 years) Not on file 05/20/2024 Utilities Answer Date Recorded Do you have trouble paying y our heating, water, or electric bill? No 05/20/2024 Is your family able to pay t he heat, water, or electric bill? (Household - for ages 0-17 years) Not on file 05/20/2024 Does your family have access to good internet? (Household - for ages 0-17 years) Not on file 05/20/2024 Employment Status Answer Date Recorded Are you unemployed or without regular income? No 05/20/2024 Does the household have a re gular source of income? (Household - for ages 0-17 years) Not on file 05/20/2024 Social Connections Answer Date Recorded How often do you feel lonely or isolated from th ose around you? Never 05/20/2024 Financial Resource Strain Answer Date R ecorded Do you have any trouble payi ng for your medications, or do you think you might in the future? No 05/20/2024 Does your family have troubl e paying for medicine? (Household - for ages 0-17 years) Not on file 05/20/2024 Transportation Needs Answer Date Record ed READ ONLY Do you have troubl e getting a ride to medical visits or work? Never True 05/20/2024 Does your family have a hard time getting a ride to doctors visits? (Household - for ages 0-17 years) Not on file 05/20/2024 Has lack of transportation k ept you from medical appointments, meetings, work, or from getting things needed for daily living? Check all that apply. No 05/20/2024 Do you (or your family) have trouble finding or paying for a ride (transportation)? (Household - for ages 0-17 years) Not on file 05/20/2024 Housing Stability Answer Date Recorded Do you currently live in a s helter or have no steady place to sleep at night? No 05/20/2024 READ ONLY Do you think you a re at risk of becoming homeless? No 05/20/2024 Does your family worry about paying for your home or becoming homeless? (Household - for ages 0-17 years) Not on file 1 Are you homeless or worried that you might be in the future? No 05/20/2024 Are you (or your family) jun eless or worried that you might be in the future? (Household - for ages 0-17 years) Not on file Food Insecurity Answer Date Recorded Do you need food for this week? No 05/20/2024 Are you able to get enough f ood for your family? (Household - for ages 0-17 years) Not on file 05/20/2024 Does your family need food t his week? (Household - for ages 0-17 years) Not on file 05/20/2024 Do you always have enough fo od for your family? (Household - for ages 0-17 years) Not on file 05/20/2024 Sex and Gender Information Value Date Recorded [...] No 08/21/2023 documented as of this encounter Miscellaneous Notes * Telephone Encounter - Emelia Myers RN - 06/03/2024 8:47 AM EDT Images from the original note were not included. Received call from the pt who states that a urine was obtained last week for a specimen to check ifsumit has a UTI. She states that she has not heard the results of that testing. Notified her as per the urine culture report: Emelia OLSEN, RN [facility] Intake Nurse Navigator Triage documented in this encounter Plan of Treatment Upcoming Encounters Date Type Department Care Team (Late st Contact Info) Description 06/08/2024 1:30 PM EST Office Visit Rheumatology, [facility] [address] [place] [address] Monster Jackman PA-C [facility] [place] [address] 06/09/2024 10:30 AM EST Home Visit [address] [place] [address] Kayla Thompson CRNP 132 [facility] [place] [address] Zohaib Castillo, Community Health Concession Manager [address] [place] [address] 06/10/2024 8:30 AM EST Laboratory Lab Mobile Phlebotomy [address] [address] [facility], [facility] Mobile Home Draw [address] [place] [address] 06/11/2024 6:00 AM EST Anticoagulation Centralized Clinical Pharmacy Services, Derrek Denton [address] [place] [address] [place] [address] [place] [address] 06/12/2024 2:30 PM EST Home Visit [facility] at [address] [place] [address] Allison Young RN 132 [facility] [place] [address] 06/17/2024 11:00 AM EST Telemedicine Hematology/Oncology, [facility] [address] [place] [address] Billy Basurto MD [address] [place] [phone] 06/17/2024 2:30 PM EST [facility] Visit [facility], [facility] [address] [facility] [place] [address] Kayla Thompson CRNP [address] [place] [address] Scarlett Nath, Community Health Concession Manager [address] [place] [address] 07/10/2024 1:40 PM EST Home Visit [facility], [facility] [address] [facility] [place] [address] Kayla Thompson CRNP [address] [place] [address] Zohaib Castillo [facility] Concession Manager [address] [place] [address] 07/14/2024 12:00 PM EST Office Visit Gastroenterology, [facility] [address] [place] [address] Rashida Jerome PA-C [address] [place] [address] 07/16/2024 1:30 PM EST Scheduled Telephone [facility], [facility] [address] [facility] [place] [address] Cyndie Hilton, RDN [address] [facility] [place] [address] 08/18/2024 3:30 PM EST Office Visit Otolaryngology, Adwoa Lozada [place] [address] [place] [address] Hema Hercules PA-C [address] [place] [address] 08/26/2024 5:40 PM EST Office Visit [facility] [place] [facility] [place] [phone] Amor Pate MD [facility] [address] 09/10/2024 12:50 PM EST Office Visit Dermatology, Adwo[address] Green [place] [address] [place] [address] Marilyn Ozuna PA-C [address] [place] [address] 11/03/2024 3:00 PM EDT Office Visit Cardiology, [place] [address] [place] [address] Stephanie Ramos PA-C [address] [facility] [place] [address] 12/31/2024 1:00 PM EDT Cardiac Studies Cardiology, [place] [facility] [place] [address] [facility] [address] 02/04/2025 12:00 PM EDT Home Visit Care at [facility] [address] [facility] [place] [phone] Carol Mathew PA-C [address] [facility] [place] [phone] Scheduled Procedures Name Priority Associated Diagnoses Date/Ti [...] Additional history exists CKD PHOS USE SMARTSET 34387 08/22/202408/05, 08/20/2023, 11/07/2022, Additional history exists HbA1c 10/14/2024 04/16/2024, 1212/2022, 04/01/2023 Albumin/Creatinine Ratio 12/05/2024 12/06/2023, 03/06 Adult Wellness Visit 02/03/2025 02/04/2024, 02/29/20 23 Depression Screening 02/03/2025 02/04/2024, 12/10/19 24 DXA Scan 04/22/2025 04/22/2023, 04/05, 12/25/2018, Additional history exists CKD HGB USE SMARTSET 65411 05/06/202505/06, 05/06/2024, 03/02/2024, Additional history exists Pneumococcal Vaccine: 65+ Years Completed 02/01/2016, 10/27/2002 VITAMIN D LEVEL ONCE IN A LIFETIME-USE SMARTSET# 65591 Completed 04/16/2024, 09/16/2023, 10/20/2019, Additional history exists [...] this encounter Medical Devices Implanted Type Area Celery Tier Device Identifier Shelf Expiration Date Model / Serial / Lot Implant System, Trim-It Drill Pin [id number]" X 4" Implanted:Qty: 1 on 10/10/2017 by ySdney Castelan DPM at OR [facility] Right: Toe 04/04/2019 AR-[id number] / / [id number] Medtronic Attesta Surescan Pacemaker Implanted:Qty: 1 on 06/09/2020 by Chanel Lin DO at OR [facility] [place] Left: Chest 08/01/2021 ATSR01 / [id number] / Nail [id number] Left [id number] - [id number] Implanted:Qty: 1 on 01/20/2021 by Alli Townsend MD at OR [facility] [place] Left: Hip MILAN : TRAUMA 12/03/2023 3525-034 0S / / [id number] Screw Lag 10.5x95mm - [id number] Implanted:Qty: 1 on 01/20/2021 by Alli Townsend MD at OR [facility] [place] Left: Hip MILAN : TRAUMA 11/02/2025 3060-009 5S / / [id number] Screw T2 Alpha Lock 5x47.5mm - [id number] Implanted:Qty: 1 on 01/20/2021 by Alli Townsend MD at OR [facility] [place] Left: Hip MILAN : TRAUMA 05/04/2029 2360-504 7S / / [id number] documented as of this encounter Advance Directives Documents on File Type Date Recorded Patient Advertising Operations Manager Expl anation POLST 07/15/2023 [place] [facility] FOR LIFE-SUSTAINING TREATMENT * Full Code [...] First Alternate Health Care Agent Care Teams Council Member Relationship Specialty Start Date End Date Amor Pate MD 21 [place] [phone] PCP - General Family Medicine 12/06/22 documented as of this encounter
--- OUTSIDE RECORDS SUMMARY | 2024-08-18 16:14 | External Medical Summary | Summary of Care ---
Author Name Unknown Organization [facility] Address [address] [place] [address] Phone [phone] Care Team Providers Care Revenue Collector Name Role Phone Amor Pate MD Primary Care Provider [phone] Reason for Visit * Reason Onset Date Comments Appointment 06/02/2024 Encounter Details Date Type Department Care Team (Late st Contact Info) Description 06/02/2024 Telephone [facility], [place] [address] [place], [place] [phone] Brigida Byrd, [facility] [address] [place] [address] Appointment Allergies No known active allergiesdocumented as of this encounter (statuses as of 06/02/2024) Medications Medication Sig Dispensed Refills Start Date [...] in the morning. 30 Tablet 07/14/2023 Active Mkqmbjo-Nxqtkvzbv-Ra tamin D ER 600-40-500 MG-MG-UNIT Tablet Extended [...] morning. 45 Tablet 3 12/25/2023 Active Nystatin 493117 UNIT/GM External CreamIndications:Can didal intertrigo Apply topically [...] as of this encounter (statuses as of 06/02/2024) Active Problems Problem Noted Date Diagnosed Date [...] multicystic lesion of the pancreas CEA, FLUID 51935.0 ng/mL Final COMMENT Final The reference range [...] 06/18/2013 Last Assessment & Plan: S/p pacemaker watermaster current use of anticoagulant therapy 0 08/28/2010 [...] patient does not have a Power of Putty And Patch Worker or Advanced Directives in place at this [...] as of this encounter (statuses as of 06/02/2024) Resolved Problems Problem Noted Date Diagnosed Date [...] 024 Confusion 07/08/2023 02/04/2024 Generalized weakness 07/08/2023 10/07/2 024 Last Assessment & Plan: She has [...] 04/01/2023 Last Assessment & Plan: PCP [place] home health SN Seeing wound clinic this week. Pain of right lower leg 11/03/2022 07/3 08/2022 Chronic diastolic (congestive) heart failure 11/28/2023 Last [...] as of this encounter (statuses as of 06/02/2024) Immunizations Name Administration Dates Next Due COVID-19 mRNA, LNP-s, No Pre serve, 2-Dose Series (ChangePanda) 10/26/2020,09/30/2020 Pneumococcal Conjugate Vacc, 13 Valent (Prevnar) [...] encounter Miscellaneous Notes * Telephone Encounter - Brigida Byrd, RENÉ - 06/02/2024 4:29 PM EDT Images from the original note were not included. Per request, Kayla Thompson CRNP Partchey, Rebecca A, RN; [facility] At Home Scheduling Pool If wound has improved-visit can be canceled. Scheduling please notify patient. Previous Messages ----- Message ----- From: Allison Young RN Sent: 06/01/2024 8:30 PM EDT To: MAGDALENA Mendoza wound is improving with each visit. I wasn't able to get pics today - my camera was not cooperating. I noticed you have a visit scheduled with her on Saturday this week - not sure if you still feel you need that appointment or want to cancel. Called pt and spoke to spouse who was next to pt at time of call, pt states she still would like tokeep this appt. Appt left on for 06/03@12:50 documented in this encounter Plan of Treatment Upcoming Encounters Date Type Department Care Team (Late st Contact Info) Description 06/03/2024 12:50 PM EDT Home Visit [facility] [place] [address] Kayla Thompson CRNP 132 [facility] [place] [address] Scarlett Nath, Community Health Gas Desulfurizer [address] [place] [address] 06/08/2024 1:30 PM EST Office Visit Rheumatology, [address] [address] Monster Jackman PA-C [address] [place] [address] 06/10/2024 8:30 AM EST Laboratory Lab Mobile Phlebotomy [address] [address] [facility], [facility] Mobile Home Draw [address] [place] [phone] 06/11/2024 6:00 AM EST Anticoagulation Centralized Clinical Pharmacy Services, Derrek Denton [address] [place] [address] [place] [address] [facility] [place] [address] 06/12/2024 2:30 PM EST Home Visit [facility], [address] [place] [address] Allison Young RN 132 [place] [address] 06/17/2024 11:00 AM EST Telemedicine Hematology/Oncology, [facility] [address] [place] [address] Billy Basurto MD [address] [place] [phone] 06/17/2024 2:30 PM EST Home Visit [facility] [place], [address] [place] [address] Kayla Thompson CRNP [address] [place] [address] Scarlett Nath, Community Health Gas Desulfurizer [address] [place] [address] 07/10/2024 1:40 PM EST [facility] Visit [facility] [address] [place] [address] Kayla Thompson CRNP [address] [place] [address] Zohaib Castillo Community Health Gas Desulfurizer [address] [place] [address] 07/14/2024 12:00 PM EST Office Visit Gastroenterology, [facility] [address] [place] [phone] Rashida Jerome PA-C [address] [place] [address] 07/16/2024 1:30 PM EST Scheduled Telephone [facility], [facility] [address] [place] [address] MignonlizetteCyndie boyer, RDN [address] [place] [address] 08/18/2024 3:30 PM EST Office Visit Otolaryngology, [place] [address] [place] [address] Hema Hercules PA-C [address] [place] [address] 08/26/2024 5:40 PM EST Office Visit Family [facility], [place] [address] [facility] [place] [address] Amor Pate MD [address] [facility] [place] [address] 09/10/2024 12:50 PM EST Office Visit Dermatology, [place]wo[place] [address] Lozada [facility] 140 [place] [address] Marilyn Ozuna PA-C [address] [place] [address] 11/03/2024 3:00 PM EDT Office Visit Cardiology, [place] [address] [place] [address] Stephanie Ramos PA-C [address] [place] [address] 12/31/2024 1:00 PM EDT Cardiac Studies Cardiology, [place] [address] [place] [address] [facility] [address] [place] [address] 02/04/2025 12:00 PM EDT Home Visit Care at Home [address] [place] [facility] [place] [address] Carol Mathew PA-C [address] [facility] [place] [phone] Scheduled Procedures Name Priority Associated Diagnoses Date/Ti [...] Additional history exists CKD PHOS USE SMARTSET 35972 08/22/202408/05, 08/20/2023, 11/07/2022, Additional history exists HbA1c 10/14/2024 04/16/2024, 1212/2022, 04/01/2023 Albumin/Creatinine Ratio 12/05/2024 12/06/2023, 03/06 Adult Wellness Visit 02/03/2025 02/04/2024, 02/29/20 23 Depression Screening 02/03/2025 02/04/2024, 12/10/19 24 DXA Scan 04/22/2025 04/22/2023, 04/05, 12/25/2018, Additional history exists CKD HGB USE SMARTSET 02517 05/06/202505/064, 05/06/2024, 03/02/2024, Additional history exists Pneumococcal Vaccine: 65+ Years Completed 02/01/2016, 10/27/2002 VITAMIN D LEVEL ONCE IN A LIFETIME-USE SMARTSET# 12882 Completed 04/16/2024, 09/16/2023, 10/20/2019, Additional history exists [...] this encounter Medical Devices Implanted Type Area Sewer And Cutter Finger Buff Material Device Identifier Shelf Expiration Date Model / Serial / Lot Implant System, Trim-It Drill Pin [id number]" X 4" Implanted:Qty: 1 on 10/10/2017 by Sydney Castelan DPM at OR [facility] Right: Toe 04/04/2019 AR-[id number] / / [id number] Medtronic Attesta Surescan Pacemaker Implanted:Qty: 1 on 06/09/2020 by Chanel Lin DO at OR [facility] Left: Chest 08/01/2021 ATSR01 / [id number] / Nail Gamma3 Left [id number] - [id number] Implanted:Qty: 1 on 01/20/2021 by Alli Townsend MD at OR [facility] Left: Hip MILAN : TRAUMA 12/03/2023 3525-034 0S / / [id number] Screw Lag 10.5x95mm - [id number] Implanted:Qty: 1 on 01/20/2021 by Alli Townsend MD at OR [facility] Left: Hip MILAN : TRAUMA 11/02/2025 3060-009 5S / / [id number] Screw T2 Alpha Lock 5x47.5mm - [id number] Implanted:Qty: 1 on 01/20/2021 by Alil Townsend MD at OR [facility] Left: Hip MILAN : TRAUMA 05/04/2029 2360-504 7S / / [id number] documented as of this encounter Advance Directives Documents on File Type Date Recorded Patient Cloth Napping Supervisor Expl shasha POL 07/15/2023 [place] [facility] FOR LIFE-SUSTAINING TREATMENT * Full Code (Latest [...] First Alternate Health Care Agent Care Teams Revenue Collector Relationship Specialty Start Date End Date Amor Pate MD [address] [place] [address] PCP - General Family Medicine 12/06/22 documented as of this encounter
--- OUTSIDE RECORDS SUMMARY | 2024-08-18 16:14 | External Medical Summary | Summary of Care ---
Author Name Unknown Organization [facility] Address [address] [place] [address] Phone [phone] Care Team Providers Care Commercial Real Estate Sales Manager Name Role Phone Amor Pate MD Primary Care Provider [phone] [phone] Reason for Visit * Reason Onset Date Comments Appointment 06/03/2024 Encounter Details Date Type Department Care Team (Late st Contact Info) Description 06/03/2024 Telephone [facility] [place] [address] [place], [place] [phone] Jerome Valdez OSA [address] [place] [address] Appointment Allergies No known active [...] in the morning. 30 Tablet 07/14/2023 Active Qlddjhi-Krtpmcxwf-Pb tamin D ER 600-40-500 MG-MG-UNIT Tablet Extended [...] morning. 45 Tablet 3 12/25/2023 Active Nystatin 433506 UNIT/GM External CreamIndications:Can didal intertrigo Apply topically [...] multicystic lesion of the pancreas CEA, FLUID 29585.0 ng/mL Final COMMENT Final The reference range [...] 06/18/2013 Last Assessment & Plan: S/p pacemaker prison current use of anticoagulant therapy 0 08/28/2010 [...] patient does not have a Power of Network Control Operators Supervisor or Advanced Directives in place at [...] 04/01/2023 Last Assessment & Plan: PCP gave keflex yesteday Has home health [...] mRNA, LNP-s, No Pre serve, 2-Dose Series ([employer]) 10/26/2020,09/30/2020 Pneumococcal Conjugate Vacc, 13 Valent (Prevnar) [...] encounter Miscellaneous Notes * Telephone Encounter - Jerome Valdez OSA - 06/03/2024 8:15 AM EDT Teams chat notification that UNA Nath is out today. Appt rs for 06/09. Spoke with pt who is agreeable. documented in this encounter Plan of Treatment Upcoming Encounters Date Type Department Care Team (Late st Contact Info) Description 06/08/2024 1:30 PM EST Office Visit Rheumatology, [address] [place] [address] Monster Jackman PA-C 7080 [facility] [place] [address] 06/09/2024 10:30 AM EST [facility] Visit [facility] [place] [address] [place] [address] Kayla Thompson CRNP 132 [place] [address] Zohaib Castillo, Community Health Black Jack Dealer [address] [place] [address] 06/10/2024 8:30 AM EST Laboratory Lab Mobile Phlebotomy [address] [address] [facility] [place], [facility] Mobile Home Draw [address] [place] [address] 06/11/2024 6:00 AM EST Anticoagulation [facility], [address] [place] [address] [place] [address] 06/12/2024 2:30 PM EST Home Visit [facility] at [address] [place] [address] Allison Young RN 132 [facility] [place] [address] 06/17/2024 11:00 AM EST Telemedicine Hematology/Oncology, [address] [address] Billy Basurto MD [address] [place] [phone] 06/17/2024 2:30 PM EST [facility] Visit [facility], [facility] 132 [place] [address] Kayla Thompson CRNP 132 [place] [address] Scarlett Nath [facility] Black Jack Dealer [address] [place] [address] 07/10/2024 1:40 PM EST [facility] Visit [facility], [facility] 132 [place] [address] Kayla Thompson CRNP 132 [place] [address] Zohaib Castillo [facility] Black Jack Dealer [address] [place] [address] 07/14/2024 12:00 PM EST Office Visit Gastroenterology, [facility] [place] [address] [place] [address] Rashida Jerome PA-C 310 [facility] [place] [address] 07/16/2024 1:30 PM EST Scheduled Telephone [facility], [facility] [address] [facility] [place] [address] Cyndie Hilton, TEMON [address] [facility] [place] [address] 08/18/2024 3:30 PM EST Office Visit Otolaryngology, [place] [address] [place] [address] Hema Hercules PA-C [address] [place] [address] 08/26/2024 5:40 PM EST Office Visit Family [facility], [place] [address] [place] [phone] Amor Pate MD 21 [place] [address] 09/10/2024 12:50 PM EST Office Visit Dermatology, [place] [address] [place] 140 [place] [address] Marilyn Ozuna PA-C [address] [place] [address] 11/03/2024 3:00 PM EDT Office Visit Cardiology, [place] [address] [place] [address] Stephanie Ramos PA-C [address] [place] [address] 12/31/2024 1:00 PM EDT Cardiac Studies Cardiology, [place] [address] [place] [address] [facility] [address] [place] [address] 02/04/2025 12:00 PM EDT Home Visit Care at Home [address] [facility] [place] [address] Carol Mathew PA-C 100 [address] [facility] [place] [address] Scheduled Procedures Name Priority Associated Diagnoses Date/Ti [...] Additional history exists CKD PHOS USE SMARTSET 27772 08/22/202408/05, 08/20/2023, 11/07/2022, Additional history exists HbA1c 10/14/2024 04/16/2024, 1212/2022, 04/01/2023 Albumin/Creatinine Ratio 12/05/2024 12/06/2023, 03/06 Adult Wellness Visit 02/03/2025 02/04/2024, 02/29/20 23 Depression Screening 02/03/2025 02/04/2024, 12/10/19 24 DXA Scan 04/22/2025 04/22/2023, 04/05, 12/25/2018, Additional history exists CKD HGB USE SMARTSET 15842 05/06/202505/06, 05/06/2024, 03/02/2024, Additional history exists Pneumococcal Vaccine: 65+ Years Completed 02/01/2016, 10/27/2002 VITAMIN D LEVEL ONCE IN A LIFETIME-USE SMARTSET# 67409 Completed 04/16/2024, 09/16/2023, 10/20/2019, Additional history exists [...] this encounter Medical Devices Implanted Type Area Insurance Administrative Assistant Device Identifier Shelf Expiration Date Model / Serial / Lot Implant System, Trim-It Drill Pin [id number](.078" X 4" Implanted:Qty: 1 on 10/10/2017 by Sydney Castelan DPM at OR [facility] Right: Toe 04/04/2019 AR-4152DS / / [id number] Medtronic Attesta Surescan Pacemaker Implanted:Qty: 1 on 06/09/2020 by Chanel Lin DO at OR [facility] Left: Chest 08/01/2021 ATSR01 / [id number] / Nail [id number] Left [id number] - [id number] Implanted:Qty: 1 on 01/20/2021 by Alli Townsend MD at OR [facility] Left: Hip MILAN : TRAUMA 12/03/2023 3525-034 0S / / [id number] Screw Lag 10.5x95mm - [id number] Implanted:Qty: 1 on 01/20/2021 by Alli Townsend MD at OR [facility] Left: Hip MILAN : TRAUMA 11/02/2025 3060-009 5S / / [id number] Screw T2 Alpha Lock 5x47.5mm - [id number] Implanted:Qty: 1 on 01/20/2021 by Alli Townsend MD at OR [facility] Left: Hip MILAN : TRAUMA 05/04/2029 2360-504 7S / / [id number] documented as of this encounter Advance Directives Documents on File Type Date Recorded Patient Business Process Consultant Expl anation POLST 07/15/2023 [place] OR [...] First Alternate Health Care Agent Care Teams Commercial Real Estate Sales Manager Relationship Specialty Start Date End Date Amor Pate MD 21 [place] [phone] PCP - General Family Medicine 12/06/22 documented as of this encounter
--- OUTSIDE RECORDS SUMMARY | 2024-08-18 16:14 | External Medical Summary | Summary of Care ---
Author Name Unknown Organization [facility] Address [address] [place] [address] Phone [phone] Care Team Providers Care Surgery Nurse Name Role Phone Amor Pate MD Primary Care Provider [phone] Reason for Visit * Reason Onset Date Comments FYI 06/08/2024 Encounter Details Date Type Department Care Team (Late st Contact Info) Description 06/08/2024 Telephone Rheumatology [facility] [place] 6967 [place] [address] Monster Jackman PA-C 7860 [place] [address] Allergies No known active allergiesdocumented as of this encounter (statuses as of 06/08/2024) Medications Medication Sig Dispensed Refills Start Date [...] in the morning. 30 Tablet 07/14/2023 Active Xseejkt-Mrzxurttm-Ko tamin D ER 600-40-500 MG-MG-UNIT Tablet Extended [...] morning. 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 current use of anticoagulant therapy 0 08/28/2010 [...] patient does not have a Power of Five Piece Expansion Maker Hand or Advanced Directives in place at this [...] as of this encounter (statuses as of 06/08/2024) Resolved Problems Problem Noted Date Diagnosed Date [...] as of this encounter (statuses as of 06/08/2024) Immunizations Name Administration Dates Next Due COVID-19 mRNA, LNP-s, No Pre serve, 2-Dose Series ([employer]) 10/26/2020,09/30/2020 Pneumococcal Conjugate Vacc, 13 Valent (Prevnar) [...] encounter Miscellaneous Notes * Telephone Encounter - Kim Calderón OSA - 06/08/2024 3:49 PM EST FYI :Attempted to schedule dexa scan.called central scheduling, pt stated she had a pacemaker, theystated at this time they can not do the dexa scan on a pt with a pacemaker documented in this encounter Plan of Treatment Upcoming Encounters Date Type Department Care Team (Late st Contact Info) Description 06/09/2024 10:30 AM EST [facility] Visit [facility] [place], [facility] 132 [facility] [place] [address] Kayla Thompson CRNP 132 [facility] [place] [address] Zohaib Castillo, Community Health Steam And Gas Turbine Assembler [address] [place] [address] 06/10/2024 8:30 AM EST Laboratory Lab Mobile Phlebotomy [facility] [address] [place] [address] Gl, l Mobile Home Draw 400 [place] [address] 06/11/2024 6:00 AM EST Anticoagulation [facility], [address] [place] [address] Ccps, [address] [place] [address] 06/12/2024 2:30 PM EST Home Visit [facility] [place], [facility] 132 [facility] [place] [address] Allison Young RN 132 [facility] [place] [address] 06/17/2024 11:00 AM EST Telemedicine Hematology/Oncology, [facility] 400 [facility] [address] Billy Basurto MD 400 [place] [address] 06/17/2024 2:30 PM EST Home Visit [facility] [place], [facility] 132 [facility] [place] [address] Kayla Thompson CRNP 132 [facility] [place] [address] Scarlett Nath, [facility] Steam [employer] Gas Turbine Assembler [address] [place] [address] 07/10/2024 1:40 PM EST Home Visit [facility], [facility] [address] [place] [address] Kayla Thompson CRNP 132 [place] [address] Zohaib Castillo [facility] [employer] Turbine Assembler [address] [place] [address] 07/14/2024 12:00 PM EST Office Visit Gastroenterology, [facility] [address] [place] [address] Rashida Jerome PA-C [address] [facility] [place] [address] 07/16/2024 1:30 PM EST Scheduled Telephone [facility], [facility] [address] [place] [address] Cyndie Hilton, RDN [address] [place] [address] 08/18/2024 3:30 PM EST Office Visit Otolaryngology, [place] [address] [place] [address] Hema Hercules PA-C 27 [place] [address] 08/26/2024 5:40 PM EST Office Visit Family Practice, [place] [facility] [place] [phone] Amor Pate MD 21 [place] [address] 09/10/2024 12:50 PM EST Office Visit Dermatology, [place] [address] [place] 140 [place] [address] Marilyn Ozuna PA-C [address] [place] [address] 11/03/2024 3:00 PM EDT Office Visit Cardiology, [address] [address] Stephanie Ramos PA-C [address] [place] [address] 12/07/2024 1:30 PM EDT Nurse Only Rheumatology, [address] [address] [place], Nurse Rheumatology [address] [place] [address] 12/31/2024 1:00 PM EDT Cardiac Studies Cardiology, [address] [address] [place], [facility] [address] [place] [address] 02/04/2025 12:00 PM EDT Home Visit Care at Home [address] [place] [address] Carol Mathew PA-C [address] [place], [place] [phone] 06/14/2025 2:00 PM EST Office Visit Rheumatology, [address] [address] Monster Jackman PA-C 3737 [facility] Man[facility]CO [address] Scheduled Procedures Name Priority Associated Diagnoses Date/Ti [...] Additional history exists CKD PHOS USE SMARTSET 46096 08/22/202408/05, 08/20/2023, 11/07/2022, Additional history exists HbA1c 10/14/2024 04/16/2024, 1212/2022, 04/01/2023 Albumin/Creatinine Ratio 12/05/2024 12/06/2023, 03/06 Adult Wellness Visit 02/03/2025 02/04/2024, 02/29/20 23 Depression Screening 02/03/2025 02/04/2024, 12/10/19 24 DXA Scan 04/22/2025 04/22/2023, 04/05, 12/25/2018, Additional history exists CKD HGB USE SMARTSET 52110 05/06/202505/06, 05/06/2024, 03/02/2024, Additional history exists Pneumococcal Vaccine: 65+ Years Completed 02/01/2016, 10/27/2002 VITAMIN D LEVEL ONCE IN A LIFETIME-USE SMARTSET# 45731 Completed 04/16/2024, 09/16/2023, 10/20/2019, Additional history exists [...] this encounter Medical Devices Implanted Type Area Mail Superintendent Device Identifier Shelf Expiration Date Model / Serial / Lot Implant System, Trim-It Drill Pin [id number]" X 4" Implanted:Qty: 1 on 10/10/2017 by Sydney Castelan DPM at OR [facility] Right: Toe 04/04/2019 AR-4152DS / / [id number] [id number] Medtronic Attesta Surescan Pacemaker Implanted:Qty: 1 on 06/09/2020 by Chanel Lin DO at OR [facility] Left: Chest 08/01/2021 ATSR01 / [id number] / Nail Gamma3 Left [id number] - [id number] Implanted:Qty: 1 on 01/20/2021 by Alli Townsend MD at OR [facility] Left: Hip MILAN : TRAUMA 12/03/2023 3525-034 0S / / [id number] Screw Lag 10.5x95mm - [id number] Implanted:Qty: 1 on 01/20/2021 by Alli Townsend MD at OR [facility] Left: Hip MILAN : TRAUMA 11/02/2025 3060-009 5S / / [id number] Screw T2 Alpha Lock 5x47.5mm - [id number] Implanted:Qty: 1 on 01/20/2021 by Alli Townsend MD at OR [facility] Left: Hip MILAN : TRAUMA 05/04/2029 2360-504 7S / / [id number] documented as of this encounter Advance Directives Documents on File Type Date Recorded Patient Walking Dragline Operator Expl anation POLST 07/15/2023 [place] OR [facility] FOR LIFE-SUSTAINING TREATMENT [...] First Alternate Health Care Agent Care Teams Surgery Nurse Relationship Specialty Start Date End Date Amor Pate MD 21 [place] [address] PCP - General Family Medicine 12/06/22 documented as of this encounter
--- OUTSIDE RECORDS SUMMARY | 2024-08-18 16:14 | External Medical Summary | Summary of Care ---
Author Name Unknown Organization [facility] Address [address] [place] [address] Phone [phone] Care Team Providers Care Inverted Block Operator Name Role Phone Amor Pate MD Primary Care Provider [phone] Reason for Visit * Reason Onset Date Comments Other 05/28/2024 Encounter Details Date Type Department Care Team (Late st Contact Info) Description 05/28/2024 Telephone [facility] 21 [place] [address] Amor Pate MD 21 [place] [address] Other Allergies No known active allergiesdocumented as of [...] in the morning. 30 Tablet 07/14/2023 Active Ieugjsn-Rskxhgytq-Fz tamin D ER 600-40-500 MG-MG-UNIT Tablet Extended [...] morning. 45 Tablet 3 12/25/2023 Active Nystatin 423188 UNIT/GM External CreamIndications:Can didal intertrigo Apply topically [...] IN THE EVENING 180 Tablet 05/06/2024 Active documented as of this encounter (statuses [...] multicystic lesion of the pancreas CEA, FLUID 13457.0 ng/mL Final COMMENT Final The reference range [...] 06/18/2013 Last Assessment & Plan: S/p pacemaker long-term current use of anticoagulant therapy 0 08/28/2010 [...] patient does not have a Power of Extension Clerk or Advanced Directives in place at [...] 04/01/2023 Last Assessment & Plan: PCP kyra pierce Has home health SN [...] mRNA, LNP-s, No Pre serve, 2-Dose Series ([employer]) 10/26/2020,09/30/2020 Pneumococcal Conjugate Vacc, 13 Valent (Prevnar) [...] encounter Miscellaneous Notes * Telephone Encounter - Janeen Fernandez LPN - 06/03/2024 8:40 AM EDT Patient has been informed of below message and verbalized understanding. * Telephone Encounter - Amor Pate MD - 06/02/2024 3:23 PM EDT 04/15 was regarding prolia (osteoporosis) not knee injection. Fine to get knee injection from Dr. Blair or his PA * Telephone Encounter - Lindsey Christensen LPN - 05/28/2024 3:40 PM EDT Called and spoke with pt-she states that she is waiting for Dr. Pate to give permission for Dr. Blair to give L knee injection. States that she has an appt next week. ?See TE from 04/15 * Telephone Encounter - Devora Rae CPhT - 05/28/2024 2:23 PM EDT Patient is asking to speak to a nurse regarding doctor giving her permission to get a knee injection. Please reach out to patient. Thank you, Devora Rae CPhT Apprentice Pattern Maker [facility] ([facility]) 05/28/2024,2:23 PM documented in this encounter Plan of Treatment Upcoming Encounters Date Type Department Care Team (Late st Contact Info) Description 06/08/2024 1:30 PM EST Office Visit Rheumatology, [address] [address] Monster Jackman PA-C [address] [place] [address], [place] [address] 06/09/2024 10:30 AM EST [facility] Visit [facility] [place] [address] Kayla Thompson CRNP [address] [place] [address] Zohaib Castillo, Community Health Referral Agent [address] [place] [address] 06/10/2024 8:30 AM EST Laboratory Lab Mobile Phlebotomy [facility] 400 [place] [address] Gl, l Mobile Home Draw 400 [place] [address] 06/11/2024 6:00 AM EST Anticoagulation [facility], Derrek Denton [address] [place] [address] [place] [address] Ccps, [address] [place] [address] 06/12/2024 2:30 PM EST [facility] Visit [facility] [address] [address] Allison Young RN 132 [place] [address] 06/17/2024 11:00 AM EST Telemedicine Hematology/Oncology, [facility] [address] [place] [address] Billy Basurto MD 400 [place] [address] 06/17/2024 2:30 PM EST [facility] Visit [facility] [place], [facility] 132 [facility] [place] [address] Kayla Thompson CRNP 132 [facility] [place] [address] Scarlett Nath, Community Health Referral Agent [address] [place] [address] 07/10/2024 1:40 PM EST [facility] Visit [facility] [place], [address] [facility] [place] [address] Kayla Thompson CRNP 132 [facility] [place] [address] Zohaib Castillo Community Health Referral Agent [address] [place] [address] 07/14/2024 12:00 PM EST [facility] [address] [place] [address] Rashida Jerome PA-C 310 [facility] [place] [address] 07/16/2024 1:30 PM EST Scheduled Telephone [facility], [facility] 1000 [place] [address] Cyndie Hilton, N [address] [place] [facility] [place] [address] 08/18/2024 3:30 PM EST Office Visit Otolaryngology, [place] [address] [place] [address] Hema Hercules PA-C [address] [place] [address] 08/26/2024 5:40 PM EST Office Visit Family [facility], [place] [facility] [place] [phone] mAor Pate MD [facility] [place] [address] 09/10/2024 12:50 PM EST Office Visit Dermatology, [place] [address] 140 [place] [address] Marilyn Ozuna PA-C [address] [place] [address] 11/03/2024 3:00 PM EDT Office Visit Cardiology, [place] 400 [facility] [place] [address] Stephanie Ramos PA-C 400 [facility] [place] [address] 12/31/2024 1:00 PM EDT Cardiac Studies Cardiology, [place] 400 [facility] [place] [address] [facility] 400 [facility] [place]LFR[place] Cheng [address] 02/04/2025 12:00 PM EDT Home Visit Care at Home [address] [place] [address] Carol Mathew PA-C [address] [place] [address] Scheduled Procedures Name Priority Associated Diagnoses Date/Ti [...] Additional history exists CKD PHOS USE SMARTSET 89781 08/22/202408/05, 08/20/2023, 11/07/2022, Additional history exists HbA1c 10/14/2024 04/16/2024, 1212/2022, 04/01/2023 Albumin/Creatinine Ratio 12/05/2024 12/06/2023, 03/06 Adult Wellness Visit 02/03/2025 02/04/2024, 02/29/20 23 Depression Screening 02/03/2025 02/04/2024, 12/10/19 24 DXA Scan 04/22/2025 04/22/2023, 04/05, 12/25/2018, Additional history exists CKD HGB USE SMARTSET 22811 05/06/202505/06, 05/06/2024, 03/02/2024, Additional history exists Pneumococcal Vaccine: 65+ Years Completed 02/01/2016, 10/27/2002 VITAMIN D LEVEL ONCE IN A LIFETIME-USE SMARTSET# 20047 Completed 04/16/2024, 09/16/2023, 10/20/2019, Additional history exists [...] this encounter Medical Devices Implanted Type Area Rn Licensed Practical Device Identifier Shelf Expiration Date Model / Serial / Lot Implant System, Trim-It Drill Pin [id number](.078" X 4" Implanted:Qty: 1 on 10/10/2017 by Sydney Castelan DPM at OR [facility] Right: Toe 04/04/2019 AR-4152DS / / [id number] Medtronic Attesta Surescan Pacemaker Implanted:Qty: 1 on 06/09/2020 by Chanel Lin DO at OR [facility] Left: Chest 08/01/2021 ATSR01 / [id number] / Nail Gamma3 Left [id number] - [id number] Implanted:Qty: 1 on 01/20/2021 by Alli Townsend MD at OR [facility] Left: Hip MILAN : TRAUMA 12/03/2023 3525-034 0S / / [id number] Screw Lag 10.5x95mm - [id number] Implanted:Qty: 1 on 01/20/2021 by Alli Townsend MD at OR [facility] Left: Hip MILAN : TRAUMA 11/02/2025 3060-009 5S / / [id number] Screw T2 Alpha Lock 5x47.5mm - [id number] Implanted:Qty: 1 on 01/20/2021 by Alli Townsend MD at OR [facility] Left: Hip MILAN : TRAUMA 05/04/2029 2360-504 7S / / [id number] documented as of this encounter Advance Directives Documents on File Type Date Recorded Patient Hand Straightener Expl anation POLST 07/15/2023 [place] [facility] FOR LIFE-SUSTAINING TREATMENT * [...] First Alternate Health Care Agent Care Teams Inverted Block Operator Relationship Specialty Start Date End Date Amor Pate MD 21 [place] [id number] PCP - General Family Medicine 12/06/22 documented as of this encounter
--- OUTSIDE RECORDS SUMMARY | 2024-08-18 16:14 | External Medical Summary | Summary of Care ---
Author Name Unknown Organization [facility] Address [address] [place] [address] Phone [phone] Care Team Providers Care Hospital Product Specialist Name Role Phone Amor Pate MD Primary Care Provider [phone] Reason for Visit * Reason Comments Rheum Follow Up HIROC Encounter Details Date Type Department Care Team (Late Contact Info) Description 06/08/2024 1:30 PM EST Office Visit Rheumatology, [address] [address] Monster Jackman PA-C [address] [place] [address] Senile osteoporosis*; History of femur fracture [...] in the morning. 30 Tablet 07/14/2023 Active Pozazcc-Fatuedezc-Sv tamin D ER 600-40-500 MG-MG-UNIT Tablet Extended [...] morning. 45 Tablet 3 12/25/2023 Active Nystatin 428469 UNIT/GM External CreamIndications:Can didal intertrigo Apply topically [...] multicystic lesion of the pancreas CEA, FLUID 74793.0 ng/mL Final COMMENT Final The reference range [...] 06/18/2013 Last Assessment & Plan: S/p pacemaker assisted current use of anticoagulant therapy 0 08/28/2010 [...] patient does not have a Power of Technical Account Representative or Advanced Directives in place at this [...] mRNA, LNP-s, No Pre serve, 2-Dose Series (Kovio) 10/26/2020,09/30/2020 Pneumococcal Conjugate Vacc, 13 Valent (Prevnar) [...] money to buy more. Never true 05/20/20 Within the past 12 months, t he [...] No 08/21/2023 documented as of this encounter Nursing Notes * Grace Mayberry LPN - 06/08/2024 1:42 PM EST Chief Complaint Patient presents with Rheum Follow Up HIROC documented in this encounter Plan of Treatment Upcoming Encounters Date Type Department Care Team (Late st Contact Info) Description 06/09/2024 10:30 AM EST Home Visit [facility] 132 [facility] [place] [address] Kayla Thompson CRNP 132 [facility] [place] [address] Zohaib Castillo [facility] Beam Color Scanner Operator [address] [place] [address] 06/10/2024 8:30 AM EST Laboratory Lab Mobile Phlebotomy [facility] [address] [place] [address] [facility], [facility] Mobile Home Draw 400 [place] [address] 06/11/2024 6:00 AM EST Anticoagulation [facility], [address] [place] [address] [place] [address] 06/12/2024 2:30 PM EST Home Visit [facility] 132 [facility] [place] [address] Allison Young RN 132 [facility] [place] [address] 06/17/2024 11:00 AM EST Telemedicine Hematology/Oncology, [facility] 400 [facility] [address] Billy Basurto MD [address] [place] [address] 06/17/2024 2:30 PM EST [facility] Visit [facility] [address] [place] [address] Kayla Thompson CRNP [address] [place] [address] Scarlett Nath, [facility] Laser Beam Color Scanner Operator [address] [place] [address] 07/10/2024 1:40 PM EST Home Visit [facility], [facility] [address] [place] [address] Kayla Thompson CRNP [address] [place] [address] Zohaib Castillo [facility] Laser Beam Color Scanner Operator [address] [place] [address] 07/14/2024 12:00 PM EST Office Visit Gastroenterology, [address] [address] Rashida Jerome PA-C [address] [place] [address] 07/16/2024 1:30 PM EST Scheduled Telephone [facility], [facility] [address] [facility] [place] [address] Cyndie Hilton, LATIA [address] [facility] [place] [address] 08/18/2024 3:30 PM EST Office Visit Otolaryngology, [place] [address] [place] [address] Hema Hercules PA-C [address] [place] [address] 08/26/2024 5:40 PM EST Office Visit [facility], [place] [facility] [phone] Amor Pate MD [address] [place] [address] 09/10/2024 12:50 PM EST Office Visit Dermatology, [place] [address] [facility] 140 [place] [address] Marilyn Ozuna PA-C [address] [place] [address] 11/03/2024 3:00 PM EDT Office Visit Cardiology, [address] [place] [address] Stephanie Ramos PA-C [address] [place], [place] [address] cheng [address] 12/07/2024 1:30 PM EDT Nurse Only Rheumatology, [address] [address] [place], Nurse Rheumatology [address] [place] [address] [place] [address] 12/31/2024 1:00 PM EDT Cardiac Studies Cardiology, [address] [place] [address] [facility] [address] [place] [address] [place] [address] 02/04/2025 12:00 PM EDT Home Visit Care at Home [address] [facility] [address] Carol Mathew PA-C [address] [facility] [place] Wang [phone] 06/14/2025 2:00 PM EST Office Visit Rheumatology, [address] [address] Monster Jackman PA-C [address] [facility] [place], [place] [phone] Scheduled Orders Name Type Priority Associated Diagnoses [...] Additional history exists CKD PHOS USE SMARTSET 15206 08/22/202408/05, 08/20/2023, 11/07/2022, Additional history exists HbA1c 10/14/2024 04/16/2024, 1212/2022, 04/01/2023 Albumin/Creatinine Ratio 12/05/2024 12/06/2023, 03/06 Adult Wellness Visit 02/03/2025 02/04/2024, 02/29/20 23 Depression Screening 02/03/2025 02/04/2024, 12/10/19 24 DXA Scan 04/22/2025 04/22/2023, 04/05, 12/25/2018, Additional history exists CKD HGB USE SMARTSET 87776 05/06/202505/06, 05/06/2024, 03/02/2024, Additional history exists Pneumococcal Vaccine: 65+ Years Completed 02/01/2016, 10/27/2002 VITAMIN D LEVEL ONCE IN A LIFETIME-USE SMARTSET# 37489 Completed 04/16/2024, 09/16/2023, 10/20/2019, Additional history exists [...] this encounter Medical Devices Implanted Type Area Regulator Operator Device Identifier Shelf Expiration Date Model / Serial / Lot Implant System, Trim-It Drill Pin [id number](.078" X 4" Implanted:Qty: 1 on 10/10/2017 by Sydney Castelan DPM at OR [facility] Right: Toe 04/04/2019 AR-4152DS / / [id number] Medtronic Attesta Surescan Pacemaker Implanted:Qty: 1 on 06/09/2020 by Chanel Lin DO at OR [facility] Left: Chest 08/01/2021 ATSR01 / [id number] / Nail Gamma3 Left [id number] - [id number] Implanted:Qty: 1 on 01/20/2021 by Alli Townsend MD at OR [facility] Left: Hip MILAN : TRAUMA 12/03/2023 3525-034 0S / / [id number] Screw Lag 10.5x95mm - [id number] Implanted:Qty: 1 on 01/20/2021 by Alli Townsend MD at OR [facility] Left: Hip MILAN : TRAUMA 11/02/2025 3060-009 5S / / [id number] Screw T2 Alpha Lock 5x47.5mm - [id number] Implanted:Qty: 1 on 01/20/2021 by Alli Townsend MD at OR [facility] Left: Hip MILAN : TRAUMA 05/04/2029 2360-504 7S / / [id number] documented as of this encounter Visit Diagnoses [...] Documents on File Type Date Recorded Patient Fluid Dynamicist Expl anation POLST 07/15/[address] [place] [address] [facility] FOR LIFE-SUSTAINING TREATMENT * Full Code [...] Alternate Health Care Agent Care Teams Hospital Product Specialist Relationship Specialty Start Date End Date Amor Pate MD 21 [place] [phone] PCP - General Family Medicine 12/06/22 documented as of this encounter
--- OUTSIDE RECORDS SUMMARY | 2024-08-18 16:15 | External Medical Summary | Summary of Care ---
Author Name Unknown Organization [facility] Address [address] [place] [address] Phone [phone] Care Team Providers Care Research Project Manager Name Role Phone Amor Pate MD Primary Care Provider [phone] Reason for Visit * Reason Onset Date Comments Other 05/28/2024 Encounter Details Date Type Department Care Team (Late st Contact Info) Description 05/28/2024 Telephone [facility] [address] [place] [address] Amor Pate MD [address] [place] [address] Other Allergies No known active allergiesdocumented as of this encounter (statuses as of 05/29/2024) Medications Medication Sig Dispensed Refills Start Date [...] in the morning. 30 Tablet 07/14/2023 Active Lbjinej-Lnehwnlxm-Di tamin D ER 600-40-500 MG-MG-UNIT Tablet Extended [...] morning. 45 Tablet 3 12/25/2023 Active Nystatin 931050 UNIT/GM External CreamIndications:Can didal intertrigo Apply topically [...] as of this encounter (statuses as of 05/29/2024) Active Problems Problem Noted Date Diagnosed Date [...] multicystic lesion of the pancreas CEA, FLUID 26802.0 ng/mL Final COMMENT Final The reference range [...] 06/18/2013 Last Assessment & Plan: S/p pacemaker USP current use of anticoagulant [...] patient does not have a Power of Hospice Aide or Advanced Directives in place at this [...] as of this encounter (statuses as of 05/29/2024) Resolved Problems Problem Noted Date Diagnosed Date [...] as of this encounter (statuses as of 05/29/2024) Immunizations Name Administration Dates Next Due COVID-19 [...] encounter Miscellaneous Notes * Telephone Encounter - Lindsey Christensen LPN [...] to patient. Thank you, Devora Rae CPhT Glass Embosser [facility] ([facility]) 05/28/2024,2:23 PM documented in this encounter Plan of Treatment Upcoming Encounters Date Type Department Care Team (Late st Contact Info) Description 06/01/2024 5:30 PM EDT Home Visit [facility] [address] [address] Allison Young RN 132 [place] [address] 06/03/2024 12:50 PM EDT Home Visit [facility] at [address] [place] [address] Kayla Thompson CRNP 132 [place] [address] Scarlett Nath, [facility] Sr. Social Media & Mobile Manager [address] [place] [address] 06/10/2024 8:30 AM EST Laboratory Lab Mobile Phlebotomy [address] [address] [facility], [facility] Mobile Home Draw [address] [place] [address] 06/11/2024 6:00 AM EST Anticoagulation [facility], Derrek Denton [address] [place] [address] [place] [address] [facility], [address] [place] [address] 06/17/2024 11:00 AM EST Telemedicine Hematology/Oncology, [address] [address] Billy Basurto MD [address] [place] [address] 06/17/2024 2:30 PM EST Home Visit [facility], [facility] 132 [place] [address] Kayla Thompson CRNP 132 [place] [address] Scarlett Nath, [facility] Sr. Social Media & Mobile Manager [address] [place] [address] 07/10/2024 1:40 PM EST Home Visit [facility], [facility] 132 [place] [address] Kayla Thompson CRNP 132 [place] [address] Zohaib Castillo [facility] Sr. Social Media & Mobile Manager [address] [place] [address] 07/14/2024 12:00 PM EST Office Visit Gastroenterology, [address] [address] Rashida Jerome PA-C [address] [place] [address] 07/16/2024 1:30 PM EST Scheduled Telephone [facility], [facility] [address] [facility] [place] [address] Cyndie Hilton, LATIA [address] [facility] [place] [address] 08/18/2024 3:30 PM EST [facility] [address] [place]heng [address] Hema Hercules PA-C [address] [place] [address] 08/26/2024 5:40 PM EST Office Visit [facility] [place] 21 [facility] [place] [phone] Amor Pate MD [address] [place] [address] 09/10/2024 12:50 PM EST Office Visit [place], [place] [address] [place] [facility] 140 [place] [address] Marilyn Ozuna PA-C [address] [place] [address] 11/03/2024 3:00 PM EDT Office Visit Cardiology, [place] 400 [facility] [place] [address] Stephanie Ramos PA-C 400 [facility] [place] [address] 12/31/2024 1:00 PM EDT Cardiac Studies Cardiology, [place] 400 [facility] [place] [address] Lucita Singh [facility] 400 [facility] [place] [address] 02/04/2025 12:00 PM EDT Home Visit Care at Home [address] [place], [place] [phone] Carol Mathew PA-C [address] [facility] [phone] Scheduled Procedures Name Priority Associated Diagnoses Date/Ti [...] Additional history exists CKD PHOS USE SMARTSET 86220 08/22/202408/05, 08/20/2023, 11/07/2022, Additional history exists HbA1c 10/14/2024 04/16/2024, 1212/2022, 04/01/2023 Albumin/Creatinine Ratio 12/05/2024 12/06/2023, [address]803/2023 Adult Wellness Visit 02/03/2025 02/04/2024, 02/29/20 23 Depression Screening 02/03/2025 02/04/2024, 12/10/19 24 DXA Scan 04/22/2025 04/22/2023, 04/05, 12/25/2018, Additional history exists CKD HGB USE SMARTSET 71426 05/06/202505/06, 05/06/2024, 03/02/2024, Additional history exists Pneumococcal Vaccine: 65+ Years Completed 02/01/2016, 10/27/2002 VITAMIN D LEVEL ONCE IN A LIFETIME-USE SMARTSET# 70984 Completed 04/16/2024, 09/16/2023, 10/20/2019, Additional history exists [...] this encounter Medical Devices Implanted Type Area Automotive Customer Experience Advisor Device Identifier Shelf Expiration Date Model / Serial / Lot Implant System, Trim-It Drill Pin [id number](.078" X 4" Implanted:Qty: 1 on 10/10/2017 by Sydney Castelan DPM at OR [facility] Right: Toe 04/04/2019 AR-4152DS / / [id number] Medtronic Attesta Surescan Pacemaker Implanted:Qty: 1 on 06/09/2020 by Chanel Lin DO at OR [facility] Left: Chest 08/01/2021 ATSR01 / [id number] / Nail Gamma3 Left [id number] - [id number] Implanted:Qty: 1 on 01/20/2021 by Alli Townsend MD at OR [facility] Left: Hip MILAN : TRAUMA 12/03/2023 3525-034 0S / / [id number] Screw Lag 10.5x95mm - [id number] Implanted:Qty: 1 on 01/20/2021 by Alli Townsend MD at OR [facility] Left: Hip MILAN : TRAUMA 11/02/2025 3060-009 5S / / [id number] Screw T2 Alpha Lock 5x47.5mm - [id number] Implanted:Qty: 1 on 01/20/2021 by Alli Townsend MD at OR [facility] Left: Hip MILAN : TRAUMA 05/04/2029 2360-504 7S / / [id number] documented as of this encounter Advance Directives Documents on File Type Date Recorded Patient Wardrobe Specialty Worker Expl anation POLST 07/15/2023 [place] OR [facility] FOR LIFE-SUSTAINING TREATMENT [...] First Alternate Health Care Agent Care Teams Research Project Manager Relationship Specialty Start Date End Date Amor Pate MD 21 [place] [address] PCP - General Family Medicine 12/06/22 documented as of this encounter
--- OUTSIDE RECORDS SUMMARY | 2024-08-18 16:15 | External Medical Summary | Summary of Care ---
Author Name Unknown Organization [facility] Address [address] [place] [address] Phone [phone] Care Team Providers Care Turbine Measurements Engineer Name Role Phone Carlos Alberto Murrieta MD Primary Care Provider [phone] Reason for Visit * Reason Comments eRx-Medication Refill Encounter Details Date Type Department Care Team (Late st Contact Info) Description 05/28/2024 Refill [facility] [address] [place] [address] Carlos Alberto Murrieta MD [address] [place] [address] Anxiety about health Allergies No known active allergiesdocumented as of this encounter (statuses as of 05/28/2024) Medications Medication Sig Dispensed Refills Start Date End Date Status Sennosides 8.6 MG Oral Tablet (Senokot) Take 2 Tablets by mouth daily as needed for Constipation. 30 Tablet 3 Active Additional Information Patient taking differently:2 Tablet Oral DAILY PRN, Constipation,Pt taking 1 every evening and additional 1 if needed, Reported on 11/26/2023 Ferrous Sulfate 325 (65 Fe) MG Oral Tablet (Feosol)Indication s:Other iron deficiency anemias Take 1 tab Saturday [...] Tablet 3 Active Biotin 1000 MCG Oral TabletIndications: Routine gynecological examination Take 1 Tablet by mouth in the morning. 30 Tablet 3 Active Calcium-Magnesium- Vitamin D ER 600-40-500 MG-MG-UNIT Tablet Extended Release 24 HourIndications:Vi tamin D deficiency,Osteope gregorio one daily (may use otc ) 30 Tablet 3 Active Folic Acid 0.8 MG Oral Capsule Take 1 Tablet by mouth in the morning. Active Atorvastatin Calcium 20 MG Oral Tablet (Lipitor)Indicatio ns:Atherosclerosis of aorta (HCC) Take 1 Tablet by mouth daily. 90 Tablet 3 4 Active Metoprolol Succinate ER 25 MG Oral Tablet Extended Release 24 Hour (toPROL XL) Take 0.5 Tablets by mouth in the morning. 45 Tablet 3 4 Active Nystatin 782328 UNIT/GM External CreamIndications:C andidal intertrigo Apply topically to affected area 2 times a day. To affacted area for two weeks. 15 g 2 4 Active Omeprazole 20 MG Oral Capsule Delayed Release (PriLOSEC)Indicati ons:GERD (gastroesophageal reflux disease) Take 1 capsule by mouth in the morning 90 Capsule 4 Active Spironolactone 25 MG Oral Tablet (Aldactone)Indicat ions:Tachy-nikki syndrome (HCC),HTN, goal below 140/90 Take 1 [...] left knee joint once. 3 mL 4 Active rOPINIRole HCl 0.25 MG Oral Tablet (Requip)Indication s:Tremors of nervous system TAKE 1 TABLET BY MOUTH IN THE MORNING AND 1 IN THE EVENING 180 Tablet 4 Active Sertraline HCl 50 MG Oral Tablet (Zoloft)Indication s:Anxiety about health TAKE 1 TABLET BY MOUTH IN THE MORNING 30 Tablet 5 4 Active Sertraline HCl 50 MG Oral Tablet (Zoloft)Indication s:Anxiety about health Take 1 Tablet by mouth in the morning. 30 Tablet 5 4 05/28/20 24 Discontinued documented as of this encounter (statuses as of 05/28/2024) Active Problems Problem Noted Date Diagnosed Date [...] multicystic lesion of the pancreas CEA, FLUID 61268.0 ng/mL Final COMMENT Final The reference range [...] 06/18/2013 Last Assessment & Plan: S/p pacemaker [facility] current use of anticoagulant therapy 0 08/28/2010 [...] patient does not have a Power of Solar Photovoltaic Installer or Advanced Directives in place at this [...] as of this encounter (statuses as of 05/28/2024) Resolved Problems Problem Noted Date Diagnosed Date Resolved Date Blister of right foot 01/04/20242023 Last Assessment & Plan: Unclear etiology but does not appear to be on area of direct pressure. No infection, advised to leave blister intact. Continue to monitor, can apply protective dressing. Acute cystitis without hematuria 07/13/2023 11/28/2023 Complicated UTI (urinary tract infection) 07/08/2023 08/13/2023 Supratherapeutic INR 07/08/2023 04/25/2 024 Confusion 07/08/2023 02/04/2024 Generalized weakness 07/08/2023 [...] as of this encounter (statuses as of 05/28/2024) Immunizations Name Administration Dates Next Due COVID-19 mRNA, LNP-s, No Pre serve, 2-Dose Series (Mobile Fuel) 10/26/2020,09/30/2020 Pneumococcal Conjugate Vacc, 13 Valent (Prevnar) [...] encounter Miscellaneous Notes * Telephone Encounter - Karey So [facility] - 05/28/2024 6:26 PM EDT Signed Prescriptions: Disp Refills Sertraline HCl 50 MG Oral Tablet (Zoloft) 30 Tab*5 Sig: TAKE 1 TABLET BY MOUTH IN THE MORNINGAuthorizing Provider: CARLOS ALBERTO MURRIETA User: KAREY SO documented in this encounter Plan of Treatment Upcoming Encounters Date Type Department Care Team (Late st Contact Info) Description 06/01/2024 5:30 PM EDT Home Visit [facility]ing at [facility] [address] [facility] [place] [address] Allison Young RN [address] [place] [address] 06/03/2024 12:50 PM EDT Home Visit ising at [facility] [address] [facility] [place] [address] Kayla Thompson CRNP 132 [place] [address] Scarlett Nath, Community Health Patternmaker Hand [address] [place] [address] 06/10/2024 8:30 AM EST Laboratory Lab Mobile Phlebotomy [facility] [address] [place] [address] [facility], [facility] Mobile Home Draw [address] [place] [address] 06/11/2024 6:00 AM EST Anticoagulation [facility], Derrek Denton [address] [place] [address] [place] [address] [place] [address] 06/17/2024 11:00 AM EST Telemedicine Hematology/Oncology, [facility] [address] [place] [address] Billy Basurto MD [address] [place] [phone] 06/17/2024 2:30 PM EST [facility], [facility] [address] [place] [address] Kayla Thompson CRNP [address] [place] [address] Scarlett Nath, [facility] Health Patternmaker Hand [address] [place] [address] 07/10/2024 1:40 PM EST [facility] Visit [facility], [facility] [address] [place] [address] Kayla Thompson CRNP [address] [place] [address] Zohaib Castillo [facility] Health Patternmaker Hand [address] [place] [address] 07/14/2024 12:00 PM EST Office Visit Gastroenterology, [facility] [address] [place] [address] Rashida Jerome PA-C [address] [place] [address] 07/16/2024 1:30 PM EST Scheduled Telephone [facility], [facility] [address] [facility] [place] [address] Cyndie Hilton, RDN [address] [facility] [place] [address] 08/18/2024 3:30 PM EST Office Visit Otolaryngology, [facility] Loz[place] [address] [place] [address] Hema Hercules PA-C [address] [place] [address] 08/26/2024 5:40 PM EST Office Visit Family [facility], [place] [address] [place] [phone] Carlos Alberto Murrieta MD 21 [place] [address] 09/10/2024 12:50 PM EST Office Visit Dermatology, [place] [address] [place] [address] [place] [address] Marilyn Ozuna PA-C [address] [place] [address] 11/03/2024 3:00 PM EDT Office Visit Cardiology, [place] [address] [place] [address] Stephanie Ramos PA-C 400 [facility] [place] [address] 12/31/2024 1:00 PM EDT Cardiac Studies Cardiology, [place] [address] [place] [address] Lucita Singh [facility] 400 [facility] [place] [address] 02/04/2025 12:00 PM EDT Home Visit Care at Home [address] [place], [place] [phone] Carol Mathew PA-C [address] [facility] [place], [place] [phone] Scheduled Procedures Name Priority Associated Diagnoses Date/Ti [...] Additional history exists CKD PHOS USE SMARTSET 13971 08/22/202408/05, 08/20/2023, 11/07/2022, Additional history exists HbA1c 10/14/2024 04/16/2024, 1212/2022, 04/01/2023 Albumin/Creatinine Ratio 12/05/2024 12/06/2023, 0803/2023 Adult Wellness Visit 02/03/2025 02/04/2024, 02/29/20 23 Depression Screening 02/03/2025 02/04/2024, 12/10/19 24 DXA Scan 04/22/2025 04/22/2023, 04/05, 12/25/2018, Additional history exists CKD HGB USE SMARTSET 70553 05/06/202505/06, 05/06/2024, 03/02/2024, Additional history exists Pneumococcal Vaccine: 65+ Years Completed 02/01/2016, 10/27/2002 VITAMIN D LEVEL ONCE IN A LIFETIME-USE SMARTSET# 84978 Completed 04/16/2024, 09/16/2023, 10/20/2019, Additional history exists [...] this encounter Medical Devices Implanted Type Area Medical Geneticist Device Identifier Shelf Expiration Date Model / Serial / Lot Implant System, Trim-It Drill Pin [id number]" X 4" Implanted:Qty: 1 on 10/10/2017 by Sydney Castelan DPM at OR [facility] Right: Toe 04/04/2019 AR-[id number] / / [id number] Medtronic Attesta Surescan Pacemaker Implanted:Qty: 1 on 06/09/2020 by Chanel Lin DO at OR [facility] Left: Chest 08/01/2021 ATSR01 / [id number] / Nail [id number] Left [id number] - [id number] Implanted:Qty: 1 on 01/20/2021 by Alli Townsend MD at OR [facility] Left: Hip MILAN : TRAUMA 12/03/2023 3525-034 0S / / [id number] Screw Lag 10.5x95mm - [id number] Implanted:Qty: 1 on 01/20/2021 by Alli oTwnsend MD at OR [facility] Left: Hip MILAN : TRAUMA 11/02/2025 3060-009 5S / / [id number] Screw T2 Alpha Lock 5x47.5mm - [id number] Implanted:Qty: 1 on 01/20/2021 by Alli Townsend MD at OR [facility] Left: Hip MILAN : TRAUMA 05/04/2029 2360-504 7S / / [id number] documented as of this encounter Visit Diagnoses Diagnosis Anxiety about health documented in this encounter Advance Directives Documents on File Type Date Recorded Patient Stem Threshing Machine Operator Expl anation POLST 07/15/2023 [place] [facility] FOR LIFE-SUSTAINING TREATMENT [...] First Alternate Health Care Agent Care Teams Turbine Measurements Engineer Relationship Specialty Start Date End Date Carlos Alberto Murrieta MD [address] [place] [phone] PCP - General Family Medicine 12/06/22 documented as of this encounter
--- OUTSIDE RECORDS SUMMARY | 2024-08-18 16:15 | External Medical Summary | Summary of Care ---
Author Name Unknown Organization [facility] Address [address] [place] [address] Phone [phone] Care Team Providers Care Sales And Marketing Professional Name Role Phone Amor Pate MD Primary Care Provider [phone] Reason for Visit * Reason Onset Date Comments Other 05/28/2024 Encounter Details Date Type Department Care Team (Late st Contact Info) Description 05/28/2024 [facility]phone [facility] [address] [place] [address] Amor Pate MD [address] [place] [address] Other Allergies No known active [...] in the morning. 30 Tablet 07/14/2023 Active Xvgfuka-Ogdiofvpf-Ow tamin D ER 600-40-500 MG-MG-UNIT Tablet Extended [...] morning. 45 Tablet 3 12/25/2023 Active Nystatin 849530 UNIT/GM External CreamIndications:Can didal intertrigo Apply topically [...] multicystic lesion of the pancreas CEA, FLUID 87723.0 ng/mL Final COMMENT Final The reference range [...] 06/18/2013 Last Assessment & Plan: S/p pacemaker half-way current use of anticoagulant therapy 0 08/28/2010 [...] patient does not have a Power of Senior Pl Sql Developer or Advanced Directives in place at [...] mRNA, LNP-s, No Pre serve, 2-Dose Series (Acquisio) 10/26/2020,09/30/2020 Pneumococcal Conjugate Vacc, 13 Valent (Prevnar) [...] to patient. Thank you, Devora Rae CPhT Sole Polisher [facility] ([facility]) 05/28/2024,2:23 PM documented in this encounter Plan of Treatment Upcoming Encounters Date Type Department Care Team (Late st Contact Info) Description 06/03/2024 12:50 PM EDT [facility] [address] [facility] [place] [address] Kayla Thompson CRNP [address] [place] [address] Scarlett Nath, Community Health Maintenance Mechanic [employer] [address] [place] [address] 06/08/2024 1:30 PM EST Office Visit Rheumatology, [address] [address] Monster Jackman [place] [address] [place] [address] 06/10/2024 8:30 AM EST Laboratory Lab Mobile Phlebotomy [address] [address] [facility], [facility] Mobile Home Draw [address] [place] [address] [place] [address] 06/11/2024 6:00 AM EST Anticoagulation Centralized Clinical Pharmacy Services, Derrek Denton [address] [place] [address] [place] [address] Ccps, [address] [place] [address] 06/12/2024 2:30 PM EST [facility] 132 [place] [address] Allison Young RN 132 [place] [address] 06/17/2024 11:00 AM EST Telemedicine Hematology/Oncology, [facility] 400 [place] [address] Billy Basurto MD 400 [place] [address] 06/17/2024 2:30 PM EST [facility], [facility] 132 [place] [address] Kayla Thompson CRNP 132 [facility] [place] [address] Scarlett Nath Community Health Maintenance Mechanic [employer] [address] [place] [address] 07/10/2024 1:40 PM EST [facility], [facility] 132 [facility] [address] Kayla Thompson CRNP 132 [facility] [place] [address] Zohaib Castillo Community Health Maintenance Mechanic [employer] [address] [place] [address], [place] [address] 07/14/2024 12:00 PM EST Office Visit Gastroenterology, [place] [address] [facility] [place] [phone] Rashida [place] PA-C 310 [facility] [place] [address] 07/16/2024 1:30 PM EST Scheduled Telephone [facility], [facility] [address] [facility] [place] [address] Cyndie Hilton, RDN [address] [facility] [place] [address] 08/18/2024 3:30 PM EST Office Visit Otolaryngology, Francisco Polanco 27 [place] [address] Hema Hercules PA-C 27 [place] [address] 08/26/2024 5:40 PM EST Office Visit Family [facility], [place] [facility] [place] [phone] Amor Pate MD [address] [facility] [place] [address] 09/10/2024 12:50 PM EST Office Visit Dermatology, [place] 27 [place] [place]oz[place] [facility] [place] 140 [place] [address] Marilyn Ozuna PA-C 27 [place] [address] 11/03/2024 3:00 PM EDT Office Visit Cardiology, [address] [place] [address] Stephanie Ramos PA-C [address] [facility] [address] 12/31/2024 1:00 PM EDT Cardiac Studies Cardiology, [place] 400 [facility] [address] [place] [address] [facility] [place] [address] 02/04/2025 12:00 PM EDT Home Visit Care at Home [address] [place] [address] Carol Mathew PA-C [address] [place] [address] Scheduled Procedures Name Priority Associated Diagnoses Date/Ti [...] Additional history exists CKD PHOS USE SMARTSET 32806 08/22/202408/05, 08/20/2023, 11/07/2022, Additional history exists HbA1c 10/14/2024 04/16/2024, 1212/2022, 04/01/2023 Albumin/Creatinine Ratio 12/05/2024 12/06/2023, 03/06 Adult Wellness Visit 02/03/2025 02/04/2024, 02/29/20 23 Depression Screening 02/03/2025 02/04/2024, 12/10/19 24 DXA Scan 04/22/2025 04/22/2023, 04/05, 12/25/2018, Additional history exists CKD HGB USE SMARTSET 29718 05/06/202505/06, 05/06/2024, 03/02/2024, Additional history exists Pneumococcal Vaccine: 65+ Years Completed 02/01/2016, 10/27/2002 VITAMIN D LEVEL ONCE IN A LIFETIME-USE SMARTSET# 14239 Completed 04/16/2024, 09/16/2023, 10/20/2019, Additional history exists [...] this encounter Medical Devices Implanted Type Area Log Skidder Device Identifier Shelf Expiration Date Model / Serial / Lot Implant System, Trim-It Drill Pin [id number]" X 4" Implanted:Qty: 1 on 10/10/2017 by Sydney Castelan DPM at OR [facility] Right: Toe 04/04/2019 AR-[id number] / / [id number] Medtronic Attesta Surescan Pacemaker Implanted:Qty: 1 on 06/09/2020 by Chanel Lin DO at OR [facility] Left: Chest 08/01/2021 ATSR01 / [id number] / Nail [id number] Left [id number] - [id number] Implanted:Qty: 1 on 01/20/2021 by Alli Townsend MD at OR [facility] Left: Hip MILAN : TRAUMA 12/03/2023 3525-034 0S / / [id number] Screw Lag 10.5x95mm - [id number] Implanted:Qty: 1 on 01/20/2021 by Alli Townsend MD at OR [facility] Left: Hip MILAN : TRAUMA 11/02/2025 3060-009 5S / / [id number] Screw T2 Alpha Lock 5x47.5mm - [id number] Implanted:Qty: 1 on 01/20/2021 by Alli Townsend MD at OR [facility] Left: Hip MILAN : TRAUMA 05/04/2029 2360-504 7S / / [id number] documented as of this encounter Advance Directives Documents on File Type Date Recorded Patient Booth Manager Expl anation POLST 07/15/2023 [place] [facility] FOR LIFE-SUSTAINING TREATMENT * Full [...] First Alternate Health Care Agent Care Teams Sales And Marketing Professional Relationship Specialty Start Date End Date Amor Pate MD 21 [place] [phone] PCP - General Family Medicine 12/06/22 documented as of this encounter
--- OUTSIDE RECORDS SUMMARY | 2024-08-18 16:15 | External Medical Summary | Summary of Care ---
Author Name Unknown Organization [facility] Address [address] [place] [address] Phone [phone] Care Team Providers Care Nuclear Reactor Engineer Name Role Phone Amor Pate MD Primary Care Provider [phone] Reason for Visit * Reason Onset Date Comments Medical Nutrition Therapy 05/28/2024 Encounter Details Date Type Department Care Team (Latest Contact Info) Description 05/28/2024 1:00 PM EDT Scheduled Telephone [facility], [facility] [address] [place] [address] Cyndie Hilton, RDN [address] [place] [address] Pressure injury of left buttock, stage 2 [...] in the morning. 30 Tablet 07/14/2023 Active Zuqpuof-Qzzmsunib-Ql tamin D ER 600-40-500 MG-MG-UNIT Tablet Extended Release 24 HourIndications:Kerry min D deficiency,Osteopeni a one daily (may use otc ) 30 Tablet 07/14/2023 Active Sertraline HCl 50 MG Oral Tablet (Zoloft)Indications: Anxiety about health Take 1 Tablet by mouth in the morning. 30 Tablet 5 08/16/2023 Active Folic Acid 0.8 MG Oral Capsule [...] morning. 45 Tablet 3 12/25/2023 Active Nystatin 109687 UNIT/GM External CreamIndications:Can didal intertrigo Apply topically [...] multicystic lesion of the pancreas CEA, FLUID 96541.0 ng/mL Final COMMENT Final The reference range [...] patient does not have a Power of Internal Audit Senior Manager or Advanced Directives in place at this [...] mRNA, LNP-s, No Pre serve, 2-Dose Series ([employer]) 10/26/2020,09/30/2020 Pneumococcal Conjugate Vacc, 13 Valent (Prevnar) [...] encounter Miscellaneous Notes * Telephone Encounter - Cyndie Hilton, LATIA - 05/28/2024 1:17 PM EDT NUTRITION FOLLOW-UP NOTE - OUTPATIENT [facility] Name: Zulma Villar [facility] Date: 05/28/2024 Time: 1:20 PM Patient was identified by name and date. After connecting to the patient via telephone, the patient was identified by name and date of . Patient was then informed that this was a telephone call only visit. The patient agreed to participate. Visit Disposition: Routine follow-up Total call duration was <8 minutes. Reason for Nutrition Follow-up: Clinical nutrition risk related to skin breakdown NUTRITION ASSESSMENT: Client History 88 year old female enrolled in [employer] [facility]. Contacted by [facility] RDN for follow up this date. Seerecent [facility] provider home visit. Wound to buttocks improving. Patient continues with protein shake 2x daily meeting ~ 50% of est protein needs. Continue with. Appetite good. 3 meals per day. Follow up in 1.5 months. Patient Active Problem List Diagnosis Dyslipidemia, goal LDL below 70 Incipient senile cataract Advance directive discussed with patient History of vitamin D deficiency care home current use of anticoagulant therapy Tachy-nikki syndrome (HCC) Mitral valve regurgitation Cardiac pacemaker in situ Acquired cyst of kidney AK (actinic keratosis) Pancreatic cyst Varicose vein of leg History of iron deficiency anemia Hammer toe of right foot Chronic midline low back pain without sciatica Hearing loss of right ear Osteoarthritis of both knees Superficial varicosities Atherosclerosis of both carotid arteries Primary osteoarthritis of both hips IPMN (intraductal papillary mucinous neoplasm) Neuropathy, lumbosacral (radicular) Gastroesophageal reflux disease without esophagitis Age-related osteoporosis without current pathological fracture 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) Cyst of spleen Venous insufficiency Nontoxic single thyroid nodule Other iron deficiency anemias Tricuspid valve insufficiency Pulmonary valve insufficiency Hiatal hernia Hepatic cyst Diverticulosis of large intestine without hemorrhage DDD (degenerative disc disease), lumbar Atherosclerosis of aorta (HCC) Internal hemorrhoids Cerebral atrophy (HCC) Type 2 diabetes mellitus with hemoglobin A1c goal of less than 7.0% (HCC) Chronic atrial fibrillation, unspecified (HCC) Type 2 diabetes mellitus with diabetic chronic kidney disease (HCC) Non-healing ulcer of buttock, limited to breakdown of skin (HCC) Pulmonary hypertension, unspecified (HCC) Pressure injury of buttock, stage 3 (HCC) Ambulatory dysfunction Recurrent cystitis DM peripheral angiopathy (HCC) Pressure injury of left buttock, stage 2 (HCC) Support System: 24 hour care - yes; grocery shopping, does grocery shopping, aide does cooking Denies food insecurity, family has also prepped meals for patient. Barriers To Learning: None Special Education Needs: None Physical Activity: Sedentary Food/Nutrition-Related History Breakfast: eggs (1 - 2), with ham, sometimes toast or strawberries. or shredded wheat with 2 % milk Snacks: Boost Lunch: chicken noodle soup or lunch Snacks: Boost Dinner: "supper" chicken, potatoes and corn Drinks: Water usually, 2, 16.9 oz bottles per day, , sugar free flavoring, OJ in AM 4- 8 oz. Hot chocolate at times. Boost High Protein, per 8 oz serving 240 kcals, 20 grams protein) 2 x per day Diet Recall/Food Logs Indicate: AREAS FOR IMPROVEMENT: At risk for Inadequate fluid intake Food and Nutrient Intake and other pertinent information: NA Medications Changes/Updates: No current outpatient medications on file. (Antidiabetic) Current Outpatient Medications (Other) Medication Sig Dispense Refill rOPINIRole HCl 0.25 MG Oral Tablet (Requip) TAKE 1 TABLET BY MOUTH IN THE MORNING AND 1 IN THE EVENING 180 Tablet 0 Sodium Hyaluronate 60 MG/3ML Intra-articular Prefilled Syringe (Durolane) Inject contents of prefilled syringe into the left knee joint once. 3 mL 0 Warfarin Sodium 2 MG Oral Tablet (Coumadin) TAKE 1 TO 2 TABLETS BY MOUTH IN THE EVENING DIRECTEDBY [facility]MADIN CLINIC 90 Tablet 1 Spironolactone 25 MG Oral Tablet (Aldactone) Take 1 Tablet by mouth once a day on Saturday, Saturday, and Saturday only. 40 Tablet 3 Omeprazole 20 MG Oral Capsule Delayed Release (PriLOSEC) Take 1 capsule by mouth in the morning 90 Capsule 0 Nystatin 340234 UNIT/GM External Cream Apply topically to affected area 2 times a day. To affacted area for two weeks. 15 g 2 Metoprolol Succinate ER 25 MG Oral Tablet Extended Release 24 Hour (toPROL XL) Take 0.5 Tablets by mouth in the morning. 45 Tablet 3 Atorvastatin Calcium 20 MG Oral Tablet (Lipitor) Take 1 Tablet by mouth daily. 90 Tablet 3 Folic Acid 0.8 MG Oral Capsule Take 1 Tablet by mouth in the morning. Sertraline HCl 50 MG Oral Tablet (Zoloft) Take 1 Tablet by mouth in the morning. 30 Tablet 5 Acetaminophen 325 MG Oral Tablet (Tylenol) Take 2 Tablets by mouth every 6 hours. 30 Tablet 0 Biotin 1000 MCG Oral Tablet Take 1 Tablet by mouth in the morning. 30 Tablet 0 Ruheqfm-Dvrotgvdi-Trnitdh D ER 600-40-500 MG-MG-UNIT Tablet Extended Release 24 Hour one daily (mayuse otc ) 30 Tablet 0 DIURETIC TITRATION PLAN If no improvement on day 3, contact heart failure managing provider. 1 Each0 Ferrous Sulfate 325 (65 Fe) MG Oral Tablet (Feosol) Take 1 tab Saturday and only. 8 Tablet 0 Furosemide 20 MG Oral Tablet (Lasix) Take 1 Tablet by mouth as needed (edema, swelling). 30 Tablet 0 Lutein 6 MG Oral Capsule Take 1 Capsule by mouth in the morning. 30 Capsule 0 Multivitamin Adults Oral Tablet Take 1 Tablet by mouth in the morning. 30 Tablet 0 Sennosides 8.6 MG Oral Tablet (Senokot) Take 2 Tablets by mouth daily as needed for Constipation. (Patient taking differently: Take 2 Tablets by mouth daily as needed for Constipation. Pt taking 1 every evening and additional 1 if needed) 30 Tablet 0 Vitamin B-12 500 MCG Oral Tablet (vitamin B-12) Take one tab twice a week 26 Tablet 0 Vitamin D (Cholecalciferol) 25 MCG (1000 UT) Oral Capsule Take 1 Capsule by mouth in the morning. 30 Capsule 0 Nutrition-Focused Physical Findings Full nutrition focused physical exam not able to be conducted: Telephonic nutrition assessment. Denies N/V/D. + wound to buttocks See 05/20/2024 home provider note. Notes "Pressure ulcer is much improved" Anthropometric Measurements Current Weight: Wt Readings from Last 1 Encounters: 05/05/24 67.1 kg (148 lb) Wt Readings from Last 4 Encounters: 05/05/24 67.1 kg (148 lb) 02/12/24 67.1 kg (148 lb) 12/10/23 68.1 kg (150 lb 3.2 oz) 11/18/23 68 kg (150 lb) Weight Change: stable BMI Readings from Last 1 Encounters: 05/05/24 23.90 kg/m Biochemical Data, Medical Tests, and Procedures Latest Reference Range & Units 04/16/24 08:27 05/06/24 11:39 Triglycerides <=174 mg/dL 77 Cholesterol <200 mg/dL 139 Non-HDL Cholesterol <=159 mg/dL 84 HDL Cholesterol >49 mg/dL 55 LDL Cholesterol <=129 mg/dL 69 SODIUM 135 - 146 mmol/L 143 POTASSIUM 3.5 - 5.1 mmol/L 3.9 CHLORIDE 98 - 107 mmol/L 104 CO2 22 - 32 mmol/L 32 BUN 6 - 20 mg/dL 20 CREATININE 0.5 - 1.0 mg/dL 0.9 0.7 EGFR >=60 mL/min 62 78 ANION GAP 7 - 15 mmol/L 7 GLUCOSE 70 - 120 mg/dL 143 (H) CALCIUM 8.4 - 10.2 mg/dL 9.3 9.4 Protein 6.0 - 8.3 g/dL 6.4 Estimated Average Glucose <126 mg/dL 114 (H): Data is abnormally high Hemoglobin AIC Results: Lab Results Component Value Date/Time HEMOGLOBIN A1C - [facility] 5.6 04/16/2024 08:27 AM HEMOGLOBIN A1C - [facility] 5.5 07/09/2023 04:30 AM HEMOGLOBIN A1C - [facility] 6.2 (H) 04/01/2023 05:01 PM Previous Nutrition Diagnosis: Predicted suboptimal energy intake related to Inadequate protein intake as evidenced by wounds/ compromised skin Progress towards goals: Oral nutrition supplement 2 x daily (Boost High Protein, per 8 oz serving 240 kcals, 20 grams protein) Advised if patient continues with premier protein shake at 30 grams protein per bottle, goal for1.5 bottles per day meeting ~ 50% of increased protein needs. Encourage increased intake of water Trying to drink more, drinking 2 or more 16.9 oz per day. Continue to encourage fluid intake. CURRENT NUTRITION DIAGNOSIS Increased energy expenditure related to increased protein needs as evidenced by wound to buttocks. NUTRITION INTERVENTION: FOOD AND/OR NUTRIENT DELIVERY Meals Supplements NUTRITION EDUCATION Initial/brief nutrition education NUTRITION COUNSELING Strategies Nutrition Prescription: Diet: Good Nutrition High protein Geovanna Clark: Daily Calorie Needs: 1,549 Kcals Daily Protein Needs: 87 - Grams protein (1.3/kg/bw) Current Goals: Continue with oral nutrition supplement Boost High Protein BID for wound healing Dietitian Action: Continue with current nutrition therapy, meal pattern, protein choices and protein shakes. Continueto encourage hydration. Goal for wound healing and weight maintenance. Recommendations to Ordering Provider: Upon skin healing continue with protein shakes for several weeks. Consider changing to Boost original 1 - 2 x per day to promote nutritional status/ weight maintenance. NUTRITION MONITORING AND EVALUATION: The following will be monitored and evaluated at the next visit: Monitor weight. Monitor labs. Review food logs. Monitor goals and progress. Plan: Patient scheduled to return in 6 weeks ; dietitian phone # given for future reference. < 8 minutes Medical Nutrition Therapy Time In: 1326 (05/28/24 1326) Time Out: 1332 (05/28/24 1332) 15 min (8-22 min) 30 min (23-37 min) 45 min (38-52 min) 60 min (53-67 min) 75 min (68-82 min) 90 min (83-97 min) 105 min (98-113 min) [facility], [facility] documented in this encounter Plan of Treatment Upcoming Encounters Date Type Department Care Team (Late st Contact Info) Description 06/01/2024 5:30 PM EDT Home Visit [facility] [place], [facility] [address] [place] [id number] Allison Young RN [address] [place] [id number] 06/03/2024 12:50 PM EDT Home Visit [facility] [place], [facility] [address] [place] [address] Kayla Thompson CRNP [address] [place] [address] Scarlett Nath, Community [facility] Padding Machine Operator [address] [place] [address] 06/10/2024 8:30 AM EST Laboratory Lab Mobile Phlebotomy [facility] [address] Gl, Gml Mobile Home Draw [address] [place] [address] 06/11/2024 6:00 AM EST Anticoagulation [facility], Derrek Denton [address] [place] [address] [place] [address] Ccps, [address] [place] [address] 06/17/2024 11:00 AM EST Telemedicine Hematology/Oncology, [facility] [address] Billy Basurto MD [address] [place] [phone] 06/17/2024 2:30 PM EST Home Visit [facility] [place], [facility] [address] [place] [address] Kayla Thompson CRNP [address] [place] [address] Scarlett Nath [facility] Padding Machine Operator [address] [place] [address] 07/10/2024 1:40 PM EST Home Visit [facility] [place], [facility] [address] [place] [address] Kayla Thompson CRNP [address] [facility] [place] [address] Zohaib Castillo [facility] Padding Machine Operator [address] [place] [address] 07/14/2024 12:00 PM EST Office Visit Gastroenterology, [facility] [address] [place] [address] Rashida Jerome PA-C [address] [place] [address] 07/16/2024 1:30 PM EST Scheduled Telephone [facility], [facility] [address] [facility] [place] [address] Cyndie Hilton, RDN [address] [place] [address] 08/18/2024 3:30 PM EST Office Visit Otolaryngology, [place] [address] [place] [address] Hema Hercules PA-C [address] [place] [address] 08/26/2024 5:40 PM EST Office Visit Family [facility], [place] [address] [place] [phone] Amor Pate MD [address] [place] [address] 09/10/2024 12:50 PM EST Office Visit [facility]atology, [place] [facility] [address] [place] [address] Marilyn Ozuna PA-C [address] [facility] [place] [address] 11/03/2024 3:00 PM EDT Office Visit Cardiology, [place] [address] [facility] [place] [address] Stephanie Ramos PA-C [address] [facility] [place] [address] 12/31/2024 1:00 PM EDT Cardiac Studies Cardiology, [place] [address] [facility] [place] [address] [place], [facility] [address] [facility] [place] [address] 02/04/2025 12:00 PM EDT [facility] [address] [facility] [place], [place] [phone] Carol Mathew PA-C [address] [facility] [place] [phone] Scheduled Procedures Name Priority Associated Diagnoses Date/Ti [...] Additional history exists CKD PHOS USE SMARTSET 47803 08/22/202408/05, 08/20/2023, 11/07/2022, Additional history exists HbA1c 10/14/2024 04/16/2024, 1212/2022, 04/01/2023 Albumin/Creatinine Ratio 12/05/2024 12/06/2023, 03/06 Adult Wellness Visit 02/03/2025 02/04/2024, 02/29/20 23 Depression Screening 02/03/2025 02/04/2024, 12/10/19 24 DXA Scan 04/22/2025 04/22/2023, 04/05, 12/25/2018, Additional history exists CKD HGB USE SMARTSET 22696 05/06/202505/06, 05/06/2024, 03/02/2024, Additional history exists Pneumococcal Vaccine: 65+ Years Completed 02/01/2016, 10/27/2002 VITAMIN D LEVEL ONCE IN A LIFETIME-USE SMARTSET# 90113 Completed 04/16/2024, 09/16/2023, 10/20/2019, Additional history exists [...] this encounter Medical Devices Implanted Type Area Photographic Press Screwmaker Device Identifier Shelf Expiration Date Model / Serial / Lot Implant System, Trim-It Drill Pin [id number]" X 4" Implanted:Qty: 1 on 10/10/2017 by Sydney Castelan DPM at OR [facility] Right: Toe 04/04/2019 [id number] / / [id number] [employer] Attesta Surescan Pacemaker Implanted:Qty: 1 on 06/09/2020 by Chanel Lin DO at OR [facility] Left: Chest 08/01/2021 [id number] / [id number] / Nail [id number] Left [id number] - [id number] Implanted:Qty: 1 on 01/20/2021 by Alli Townsend MD at OR [facility] Left: Hip MILAN : TRAUMA 12/03/2023 [id number] [id number] / / [id number] Screw Lag 10.5x95mm - [id number] Implanted:Qty: 1 on 01/20/2021 by Alli Townsend MD at OR [facility] Left: Hip MILAN : TRAUMA 11/02/2025 [id number] / / [id number] Screw T2 Alpha Lock 5x47.5mm - [id number] Implanted:Qty: 1 on 01/20/2021 by Alli Townsend MD at OR [facility] Left: Hip MILAN : TRAUMA 05/04/2029 [id number] / / [id number] documented as of this encounter Visit Diagnoses Diagnosis Pressure injury of left buttock, stage 2 (HCC)- Primary documented in this encounter Advance Directives Documents on File Type Date Recorded Patient Senior Technical Editor Expl anation POLST 07/15/2023 [place] [facility] FOR LIFE-SUSTAINING TREATMENT * Full [...] First Alternate Health Care Agent Care Teams Nuclear Reactor Engineer Relationship Specialty Start Date End Date Amor Pate MD [address] [place] [address] PCP - General Family Medicine 12/06/22 documented as of this encounter
--- OUTSIDE RECORDS SUMMARY | 2024-08-18 16:15 | External Medical Summary | Summary of Care ---
Author Name Unknown Organization [facility] Address [address] [place] [address] Phone [phone] Care Team Providers Care Travel Registered Nurse Nicu Name Role Phone Amor Pate MD Primary Care Provider [phone] Reason for Visit * Reason Onset Date Comments Precert Approved 04/16/2024 Prolia - waitin g for oop cost Appointment 04/16/2024 Encounter Details Date Type Department Care Team (Late st Contact Info) Description 04/16/2024 Telephone Rhe[address] [place] [address] Geronimo Arredondo MD [address] [place] [address] [place] [address] Precert Approved (Prolia - waiting for oop... Allergies No known active allergiesdocumented as of this encounter (statuses as of 06/01/2024) Medications Medication Sig Dispensed Refills Start Date [...] s:Other iron deficiency anemias Take 1 tab Davian and only. 8 Tablet 3 Active Acetaminophen [...] morning. 45 Tablet 3 4 Active Nystatin 103655 UNIT/GM External CreamIndications:C andidal intertrigo Apply topically [...] knee joint once. 3 mL 4 Active Sertraline HCl 50 MG Oral Tablet (Zoloft)Indication s:Anxiety about health Take 1 Tablet by mouth in the morning. 30 Tablet 5 4 05/28/20 24 Discontinued rOPINIRole HCl 0.25 MG Oral Tablet (Requip)Indication s:Tremors of nervous system Take 1 Tablet by mouth in the morning and 1 Tablet in the evening. 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 06/08/24 at 1:30 pm * Telephone Encounter - Grace Mayberry LPN - 05/29/2024 12:02 PM EDT Pt has been approved for FA She needs a follow up appointment with [facility] for a qian and possibly give her Prolia (auth is in place but pt has not been seen by us since 2022) will need to re eval to see if still appropriate for her. * Telephone Encounter - Grace Mayberry LPN - 05/29/2024 11:02 AM EDT Any update? Thanks! * Telephone Encounter - Cathy Mayberry LPN - 05/15/2024 2:31 PM EDT Has pt been approved for FA? * Telephone Encounter - Grace Mayberry LPN - 04/20/2024 11:52 AM EDT Any oop? * Telephone Encounter - Mary Flaherty OSA - 04/20/2024 11:30 AM EDT APPROVED SEE REFERRAL MESSAGE * Telephone Encounter - Mary Flaherty OSA - 04/17/2024 11:54 AM EDT [facility] Authorization Submission Submission Information: Medication: PROLIA Portal used: PromptPA Insurance: P Authorization #/Fernandez: [id number] * Telephone Encounter - Geronimo Arredondo MD - 04/16/2024 12:11 PM EDT Needs new authorization for Prolia. Last given in 2022. Once it is approved will need to get set upwith [facility] in the [facility] for office visit and Prolia. documented in this encounter Plan of Treatment Upcoming Encounters Date Type Department Care Team (Late st Contact Info) Description 06/01/2024 5:30 PM EDT Home Visit ising at [address] [place] [address] Allison Young RN 132 [facility] [place] [address] 06/03/2024 12:50 PM EDT Home Visit isinger at [place], [address] [place] [address] Kayla Thompson CRNP [address] [place] [address] Scarlett Nath, Community Health Cad Drafter [address] [place] [address] 06/08/2024 1:30 PM EST Office Visit Rheumatology, [address] [address] Monster Jackman PA-Dana [address] [place] [address] 06/10/2024 8:30 AM EST Laboratory Lab Mobile Phlebotomy [address] [address] [facility], [facility] Mobile Home Draw [address] [place] [address] 06/11/2024 6:00 AM EST Anticoagulation Centralized Clinical Pharmacy Services, Derrek Denton [address] [place] [address] [place] [address] [facility], [address] [place] [address] 06/17/2024 11:00 AM EST Telemedicine Hematology/Oncology, [facility] 400 [facility] [place] [address] Billy Basurto MD 400 [place] [phone] 06/17/2024 2:30 PM EST [facility] Visit [facility], [facility] [address] [place] [address] Kayla Thompson CRNP [address] [place] [address] Scarlett Nath Community [facility] Cad Drafter [address] [place] [address] 07/10/2024 1:40 PM EST [facility] Visit [facility], [facility] 132 [facility] [place] [address] Kayla Thompson CRNP [address] [place] [address] Zohaib Castillo Community [facility] Cad Drafter [address] [place] [address] 07/14/2024 12:00 PM EST Office Visit Gastroenterology, [facility] [address] [place] [address] Rashida Jerome PA-C [address] [place] [address] 07/16/2024 1:30 PM EST Scheduled Telephone [facility], [facility] [address] [facility] [place] [address] Cyndie Hilton RDN 1000 [facility] [place] [address] 08/18/2024 3:30 PM EST Office Visit Otolaryngology, [address] [place] [address] [place] [address] Hema Hercules PA-C [address] [place] [address] 08/26/2024 5:40 PM EST Office Visit Family [facility], [place] [address] [place] [phone] Amor Pate MD [address] [place] [address] 09/10/2024 12:50 PM EST Office Visit Dermatology, [place] [address] [place] [address] Marilyn Ozuna PA-C [address] [place] [address] 11/03/2024 3:00 PM EDT Office Visit Cardiology, [place] [address] [place] [address] Stephanie Ramos [facility]C 400 [facility] [place] [address] 12/31/2024 1:00 PM EDT Cardiac Studies Cardiology, [place] [address] [place] [address] Lucita Singh [facility] [address] [place] [address] 02/04/2025 12:00 PM EDT Home Visit Care at Home [address] [facility] [place] [address] Carol Mathew PA-C [address] [place] [address] Scheduled Procedures Name Priority Associated Diagnoses Date/Ti [...] Additional history exists CKD PHOS USE SMARTSET 66986 08/22/202408/05, 08/20/2023, 11/07/2022, Additional history exists HbA1c 10/14/2024 04/16/2024, 12/2022, 04/01/2023 Albumin/Creatinine Ratio 12/05/2024 12/06/2023, 03/06 Adult Wellness Visit 02/03/2025 02/04/2024, 02/29/20 23 Depression Screening 02/03/2025 02/04/2024, 12/10/19 24 DXA Scan 04/22/2025 04/22/2023, 04/05, 12/25/2018, Additional history exists CKD HGB USE SMARTSET 01637 05/06/202505/06, 05/06/2024, 03/02/2024, Additional history exists Pneumococcal Vaccine: 65+ Years Completed 02/01/2016, 10/27/2002 VITAMIN D LEVEL ONCE IN A LIFETIME-USE SMARTSET# 98474 Completed 04/16/2024, 09/16/2023, 10/20/2019, Additional history exists [...] this encounter Medical Devices Implanted Type Area Assurance Assistant Device Identifier Shelf Expiration Date Model / Serial / Lot Implant System, Trim-It Drill Pin [id number]" X 4" Implanted:Qty: 1 on 10/10/2017 by Sydney Castelan DPM at OR [facility] Right: Toe 04/04/2019 AR-[id number] / / [id number] Medtronic Attesta Surescan Pacemaker Implanted:Qty: 1 on 06/09/2020 by Chanel Lin DO at OR [facility] Left: Chest 08/01/2021 ATSR01 / [id number] / Nail [id number] Left [id number] - [id number] Implanted:Qty: 1 on 01/20/2021 by Alli Townsend MD at OR [facility] Left: Hip MILAN : TRAUMA 12/03/2023 3525-034 0S / / [id number] Screw Lag 10.5x95mm - [id number] Implanted:Qty: 1 on 01/20/2021 by Alli Townsend MD at OR [facility] Left: Hip MILAN : TRAUMA 11/02/2025 3060-009 5S / / [id number] Screw T2 Alpha Lock 5x47.5mm - [id number] Implanted:Qty: 1 on 01/20/2021 by Alli Townsend MD at OR [facility] Left: Hip MILAN : TRAUMA 05/04/2029 2360-504 7S / / [id number] documented as of this encounter Advance Directives Documents on File Type Date Recorded 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
--- OUTSIDE RECORDS SUMMARY | 2024-08-18 16:15 | External Medical Summary | Summary of Care ---
Author Name Unknown Organization [facility] Address [address] [place] [address] Phone [phone] Care Team Providers Care Middleware Solutions Architect Name Role Phone Amor Pate MD Primary Care Provider [phone] Encounter Details Date Type Department Care Team (Late Contact Info) Description 06/01/2024 5:30 PM EDT [facility] [address] [facility] [place] [address] Allison Young, RN [address] [place] [address] Allergies No known active allergiesdocumented as of [...] in the morning. 30 Tablet 07/14/2023 Active Xoxgvlv-Lqqiunecz-Zl tamin D ER 600-40-500 MG-MG-UNIT Tablet Extended [...] morning. 45 Tablet 3 12/25/2023 Active Nystatin 557909 UNIT/GM External CreamIndications:Can didal intertrigo Apply topically [...] once a day on Saturday, Saturday, and Darwin only. 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 PMHx includes: a-fib - on coumadin, tachy-nikki syndrome, ckd3, dm2, htn, chronic UTI, Stage 2 pressure ulcer Rosa Elena reports feeling generally well today. She notes she took an extra lasix this weekend due to edema in her legs and feet. BLE have edema above sock line, pt states improved from previous day. Denies SOB. She is taking tylenol for muscle pain in right arm, shoulder, and neck pain. Encouraged to use heating pad as well. Left buttocks stage 2 is improving. Wound with minimal drainage. Diminished in size. Unable to obtain photo at time of visit. Pt states the wound pain is minimal. She is sitting on a gel cushion. Sleeps on her side. Caregivers are cleansing with 1/4 strength vinegar water and covering with duoderm. Reinforced importance of offloading pressure. Pt reminded to contact [facility] at [phone] with any red flags, changes in condition, or concerns. Physical Exam: Physical Exam Constitutional: General: She is not in acute distress. HENT: Mouth/Throat: Mouth: Mucous membranes are moist. Cardiovascular: Rate and Rhythm: Normal rate. Rhythm irregular. Pulses: Normal pulses. Heart sounds: Normal heart sounds. Pulmonary: Effort: Pulmonary effort is normal. Breath sounds: Normal breath sounds. Abdominal: General: Bowel sounds are normal. Palpations: Abdomen is soft. Musculoskeletal: Right lower leg: Edema present. Left lower leg: Edema present. Comments: Edema above sock line bilat Skin: General: Skin is warm and dry. Capillary Refill: Capillary refill takes 2 to 3 seconds. Neurological: Mental Status: She is alert and oriented to person, place, and time. Sensory: No sensory deficit. Psychiatric: Mood and Affect: Mood normal. Review of Systems: Review of Systems Constitutional: Negative for chills, fatigue and fever. Respiratory: Negative for cough and shortness of breath. Cardiovascular: Negative for chest pain, palpitations and leg swelling. Gastrointestinal: Negative for constipation and diarrhea. Genitourinary: Positive for frequency (diuretics). Negative for dysuria and urgency. Musculoskeletal: Positive for gait problem (shuffling gait; ambulates with walker; must have assistance with all ambulation and transfers) and neck pain. C/O muscle ache right arm and shoulder, into right neck; pt states she feels she pulled it while holding herself up on the grab bar in the bathroom Skin: Positive for wound (left buttock - stage 2). Neurological: Positive for weakness. Negative for dizziness and light-headedness. Hematological: Bruises/bleeds easily (on warfarin). Psychiatric/Behavioral: Negative. [...] Care Gaps Care gaps closed this contact:: Education;Home based procedures (06/01/242025) Type of education: Clinical/disease (06/01/242025) Procedure performed: Wound care (06/01/242025) documented in this encounter Plan of Treatment Upcoming Encounters Date Type Department Care Team (Late st Contact Info) Description 06/03/2024 12:50 PM EDT Home Visit [facility] [address] [place] [address] Kayla Thompson CRNP [address] [place] [address] Scarlett Nath, Community Health Salon Sales Consultant [address] [place] [address] 06/08/2024 1:30 PM EST Office Visit Rheumatology, [address] [address] Monster Jackman PA-C [address] [place] [address] 06/10/2024 8:30 AM EST Laboratory Lab Mobile Phlebotomy [address] [address] [facility], [facility] Mobile Home Draw [address] [place] [address] 06/11/2024 6:00 AM EST Anticoagulation Centralized Clinical Pharmacy Services, Derrek Denton [address] [place] [address] [place] [address] C[facility], [address] [place] [address] 06/12/2024 2:30 PM EST [facility] Visit [facility], [facility] 132 [facility] [place] [address] Allison Young RN 132 [place] [address] 06/17/2024 11:00 AM EST Telemedicine Hematology/Oncology, [facility] [address] [place] [address] Billy Basurto MD 400 [place] [address] 06/17/2024 2:30 PM EST Home Visit [facility], [facility] 132 [facility] [place] [address] Kayla Thompson CRNP [address] [place] [place] [address] Scarlett Nath Community Health Salon Sales Consultant [address] [place] [address] 07/10/2024 1:40 PM EST Home Visit [facility], [facility] 132 [facility] [place] [address] Kayla Thompson CRNP 132 [facility] [place] [address] Zohaib Castillo Community Health Salon Sales Consultant [facility] [address] 07/14/2024 12:00 PM EST Office Visit Gastroenterology, [facility] [address] [place] [address] Rashida Jerome PA-C [address] [place] [address] 07/16/2024 1:30 PM EST Scheduled Telephone [facility], [facility] [address] [facility] [place] [address] Cyndie Hilton, RDN [address] [facility] [place] [address] 08/18/2024 3:30 PM EST Office Visit Otolaryngology, [place] [address] [place] [address] Hema Hercules PA-C [address] [place] [address] 08/26/2024 5:40 PM EST Office Visit Family [facility], [place] [facility] [place] [phone] Amor Pate MD [address] [address] 09/10/2024 12:50 PM EST Office Visit Dermatology, [place] [address] [facility] 140 [place] [address] Marilyn Ozuna PA-C [address] [place] [address] 11/03/2024 3:00 PM EDT Office Visit Cardiology, [place] [address] [place] [address] Stephanie Ramos PA-C [address] [place] [address] 12/31/2024 1:00 PM EDT Cardiac Studies Cardiology, [place] [address] [place] [address] [place] [address] [place] [address] 02/04/2025 12:00 PM EDT Home Visit Care at Home [address] [place], [place] [phone] Carol Mathew PA-C [address] [facility] [place] [phone] Scheduled Procedures Name Priority Associated Diagnoses Date/Ti [...] Additional history exists CKD PHOS USE SMARTSET 69883 08/22/202408/05, 08/20/2023, 11/07/2022, Additional history exists HbA1c 10/14/2024 04/16/2024, 1212/2022, 04/01/2023 Albumin/Creatinine Ratio 12/05/2024 12/06/2023, 03/06 Adult Wellness Visit 02/03/2025 02/04/2024, 02/29/20 23 Depression Screening 02/03/2025 02/04/2024, 12/10/19 24 DXA Scan 04/22/2025 04/22/2023, 04/05, 12/25/2018, Additional history exists CKD HGB USE SMARTSET 98701 05/06/202505/06, 05/06/2024, 03/02/2024, Additional history exists Pneumococcal Vaccine: 65+ Years Completed 02/01/2016, 10/27/2002 VITAMIN D LEVEL ONCE IN A LIFETIME-USE SMARTSET# 36760 Completed 04/16/2024, 09/16/2023, 10/20/2019, Additional history exists [...] this encounter Medical Devices Implanted Type Area Human Services Worker Device Identifier Shelf Expiration Date Model / Serial / Lot Implant System, Trim-It Drill Pin [id number]" X 4" Implanted:Qty: 1 on 10/10/2017 by Sydney Castelan DPM at OR [facility] Right: Toe 04/04/2019 AR-[id number] / / [id number] Medtronic Attesta Surescan Pacemaker Implanted:Qty: 1 on 06/09/2020 by Chanel Lin DO at OR [facility] Left: Chest 08/01/2021 ATSR01 / [id number] / Nail [id number] Left [id number] - [id number] Implanted:Qty: 1 on 01/20/2021 by Alli Townsend MD at OR [facility] Left: Hip MILAN : TRAUMA 12/03/2023 3525-034 0S / / [id number] Screw Lag 10.5x95mm - [id number] Implanted:Qty: 1 on 01/20/2021 by Alli Townsend MD at OR [facility] Left: Hip MILAN : TRAUMA 11/02/2025 3060-009 5S / / [id number] Screw T2 Alpha Lock 5x47.5mm - [id number] Implanted:Qty: 1 on 01/20/2021 by Alli Townsend MD at OR [facility] Left: Hip MILAN : TRAUMA 05/04/2029 2360-504 7S / / [id number] documented as of this encounter Advance Directives Documents on File Type Date Recorded 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
--- OUTSIDE RECORDS SUMMARY | 2024-08-18 16:16 | External Medical Summary | Summary of Care ---
Author Name Unknown Organization [facility] Address [address] [place] [address] Phone [phone] Care Team Providers Care Funeral Prearrangement Counselor Name Role Phone Amor Pate MD Primary Care Provider [phone] Reason for Visit * Reason Comments Outpatient Testing Encounter Details Date Type Department Care Team ([facility] Contact Info) Description 05/27/2024 12:30 PM EDT Laboratory Laboratory, [address] [address] Peter, Specimen Drop Off [address] [address] UTI (urinary tract infection) Allergies No known active allergiesdocumented as of this encounter (statuses as of 05/27/2024) Medications Medication Sig Dispensed Refills Start Date [...] in the morning. 30 Tablet 07/14/2023 Active Rusljdd-Tosjainrp-Mt tamin D ER 600-40-500 MG-MG-UNIT Tablet Extended [...] morning. 45 Tablet 3 12/25/2023 Active Nystatin 076207 UNIT/GM External CreamIndications:Can didal intertrigo Apply topically [...] as of this encounter (statuses as of 05/27/2024) Active Problems Problem Noted Date Diagnosed Date [...] multicystic lesion of the pancreas CEA, FLUID 90462.0 ng/mL Final COMMENT Final The reference range [...] interpretation. 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 Pain of right lower leg 11/03/202202/04 Chronic diastolic (congestive) heart failure 11/28/2023 Last [...] right toe(s) 03/24/2018 11/08/2020 Aortic calcification 09/24/2017 04/25/2 024 Overview: CT pancreas 08/20/22: VESSELS: Calcified [...] FINAL 04/07/19 11:21A 04/07/19 9.8* FINAL HGB(g/dL) Dr Dt/Tm Resulted Value Status 03/03/10 8:10A 03/03/10 [...] as of this encounter (statuses as of 05/27/2024) Immunizations Name Administration Dates Next Due COVID-19 [...] No 08/21/2023 documented as of this encounter Plan of Treatment Upcoming Encounters Date Type Department Care Team (Late st Contact Info) Description 05/28/2024 1:00 PM EDT Scheduled Telephone [facility], [facility] [address] [place] [address] Cyndie Hilton RDN [address] [place] [address] 06/01/2024 5:30 PM EDT [facility] Visit [facility], [facility] [address] [place] [address] Allison Young RN [address] [place] [address] 06/03/2024 12:50 PM EDT Home Visit [facility], [facility] [address] [place] [address] Kayla Thompson CRNP [address] [facility] [place] [address] Scarlett Nath, Community Health Light Technician [address] [place] [address] 06/10/2024 8:30 AM EST Laboratory Lab Mobile Phlebotomy GL [address] [place] [address] Gl, [facility] Mobile Home Draw [address] [place] [address] 06/11/2024 6:00 AM EST Anticoagulation Centralized Clinical Pharmacy Services, [address] [place] [address] [place] [address] 06/17/2024 11:00 AM EST Telemedicine Hematology/Oncology, [address] [address] Billy Basurto MD [address] [place] [phone] 06/17/2024 2:30 PM EST [facility] Visit [facility], [facility] [address] [facility] [place] [address] Kayla Thompson CRNP 132 [facility] [place] [address] Scarlett Nath, Community Health Light Technician [address] [place] [address] 07/10/2024 1:40 PM EST Home Visit [facility] [address] [facility] [place] [address] Kayla Thompson CRNP [address] [place] [address] Zohaib Castillo, [facility] Light Technician [address] [place] [address] 07/14/2024 12:00 PM EST Office Visit Gastroenterology, [facility] [address] [place] [address] Rashida Jerome PA-C [address] [facility] [place] [address] 08/18/2024 3:30 PM EST Office Visit Otolaryngology, [place] [address] [place] [address] Hema Hercules PA-C [address] [place] [address] 08/26/2024 5:40 PM EST Office Visit Family [facility], [place] [address] [place] [phone] Amor Pate MD [address] [place] [address] 09/10/2024 12:50 PM EST Office Visit Dermatology, [place] [address] [place] [address] Marilyn Ozuna PA-C [address] [place] [address] 11/03/2024 3:00 PM EDT Office Visit Cardiology, [place] [address] [place] [address] Stephanie Ramos PA-C [address] [place] [address] 12/31/2024 1:00 PM EDT Cardiac Studies Cardiology, [place] [address] [place] [address] [place] [address] [facility] [address] 02/04/2025 12:00 PM EDT Home Visit [facility] at Home [address] [place] [address] Carol Mathew PA-C [address] [place] [address] Pending Results Name Type Priority Associated Diagnoses Date /Time URINALYSIS, REFLEX TO CULTURE (NOT FOR NEUTROPENIC PATIENTS) Lab Routine UTI (urinary tract infection) 05/27/2024 12:31 PM EDT URINALYSIS, REFLEX TO CULTURE (CUP ONLY) Lab Routine UTI (urinary tract infection) 05/27/2024 12:31 PM EDT URINALYSIS, REFLEX TO CULTURE Lab Routine UTI (urinary tract infection) 05/27/2024 12:31 PM EDT Scheduled Procedures Name Priority Associated Diagnoses Date/Ti [...] Additional history exists CKD PHOS USE SMARTSET 87427 08/22/202408/05, 08/20/2023, 11/07/2022, Additional history exists HbA1c 10/14/2024 04/16/2024, 1212/2022, 04/01/2023 Albumin/Creatinine Ratio 12/05/2024 12/06/2023, 03/06 Adult Wellness Visit 02/03/2025 02/04/2024, 02/29/20 23 Depression Screening 02/03/2025 02/04/2024, 12/10/19 24 DXA Scan 04/22/2025 04/22/2023, 04/05, 12/25/2018, Additional history exists CKD HGB USE SMARTSET 51236 05/06/202505/06, 05/06/2024, 03/02/2024, Additional history exists Pneumococcal Vaccine: 65+ Years Completed 02/01/2016, 10/27/2002 VITAMIN D LEVEL ONCE IN A LIFETIME-USE SMARTSET# 22184 Completed 04/16/2024, 09/16/2023, 10/20/2019, Additional history exists [...] this encounter Medical Devices Implanted Type Area Community Engagement Manager Device Identifier Shelf Expiration Date Model / Serial / Lot Implant System, Trim-It Drill Pin [id number]" X 4" Implanted:Qty: 1 on 10/10/2017 by Sydney Castelan DPM at OR [facility] Right: Toe 04/04/2019 AR-[id number] / / [id number] [id number] Medtronic Attesta Surescan Pacemaker Implanted:Qty: 1 on 06/09/2020 by Chanel Lin DO at OR [facility] Left: Chest 08/01/2021 ATSR01 / [id number] / Nail [id number] Left [id number] - [id number] Implanted:Qty: 1 on 01/20/2021 by Alli Townsend MD at OR [facility] Left: Hip MILAN : TRAUMA 12/03/2023 3525-034 0S / / [id number] Screw Lag 10.5x95mm - [id number] Implanted:Qty: 1 on 01/20/2021 by Alli Townsend MD at OR [facility] Left: Hip MILAN : TRAUMA 11/02/2025 3060-009 5S / / [id number] Screw T2 Alpha Lock 5x47.5mm - [id number] Implanted:Qty: 1 on 01/20/2021 by Alli Townsend MD at OR [facility] Left: Hip MILAN : TRAUMA 05/04/2029 2360-504 7S / / [id number] documented as of this encounter Visit Diagnoses Diagnosis UTI (urinary tract infection) Urinary tract infection, site not specified documented in this encounter Advance Directives Documents on File Type Date Recorded Patient Roll Tube Setter Expl anation POLST 07/15/2023 [place] OR [facility] FOR LIFE-SUSTAINING [...] First Alternate Health Care Agent Care Teams Funeral Prearrangement Counselor Relationship Specialty Start Date End Date Amor Pate MD [address] [place] [phone] PCP - General Family Medicine 12/06/22 documented as of this encounter
--- OUTSIDE RECORDS SUMMARY | 2024-08-18 16:16 | External Medical Summary | Summary of Care ---
Author Name Unknown Organization [facility] Address [address] [place] [address] Phone [phone] Care Team Providers Care Rehab Technician Name Role Phone Amor Pate MD Primary Care Provider [phone] Reason for Visit * Reason Onset Date Comments [facility]: Maintenance 05/27/2024 Encounter Details Date Type Department Care Team (Late st Contact Info) Description 05/27/2024 11:00 AM EDT Scheduled Telephone [facility], [facility] [address] [facility] [place] [address] Coordinator, [facility] 132 [place] [address] Allergies No known active allergiesdocumented as of [...] in the morning. 30 Tablet 07/14/2023 Active Dwilwxf-Ltopfqqot-Go tamin D ER 600-40-500 MG-MG-UNIT Tablet Extended [...] morning. 45 Tablet 3 12/25/2023 Active Nystatin 941245 UNIT/GM External CreamIndications:Can didal intertrigo Apply topically [...] "My pants feel tight") Medication Regimen: Beta Itka Therapy: Metoprolol Succinate (ER) JACOB Inhibitor/ARB Therapy: [...] multicystic lesion of the pancreas CEA, FLUID 82504.0 ng/mL Final COMMENT Final The reference range [...] patient does not have a Power of Fire Extinguisher Repairer Inspector or Advanced Directives in place at this [...] encounter Miscellaneous Notes * Telephone Encounter - Kadie Tellez RN - 05/27/2024 11:02 AM EDT [facility] Telephonic Nurse Follow-Up Call [facility] Subprogram: Focused Care Management (3-9 months) Follow Up Call Type: 24 hour follow up Acute issue requiring follow-up call: Other: follow up on urine specimen, sxs Objective: 05/20/2024 9:05 AM 05/19/2024 11:06 AM 05/07/2024 10:25 AM 05/05/2024 1:55 PM 04/20/2024 3:11 PM VITALS ACROSS ENCOUNTERS BP 138/84 122/74 130/70 102/60 Pulse 64 60 68 64 60 Weight 67.1 kg BMI 23.9 kg/m2 Remote Patient Monitoring: NONE Oxygen Needs: NO supplemental oxygen needs identified DME Needs: NO DME needs identified Medications: No medication or dose adjustments made during acute episode Subjective: Condition Status: No change in symptoms Current Concerns: Spoke with patient who reports that her symptoms of burning with urination continue. She was able to collect urine specimen this morning and will have take to the [facility] lab. Denies fever/chills, n/v, hematuria, flank pain. Reinforced to stay hydrated. Avoid coffee, tea, soda, push water. Will add phone call for tomorrow to check results. Reviewed s/s and prevention of UTI: Symptoms: -burning with urination -increased urination -cloudy urine -dark urine -foul smelling urine -fever -weakness/change in mental status Prevention: -drink plenty of fluids -wear cotton panties -wipe from front to back -avoid delayed bladder emptying Disposition: Follow up call scheduled for tomorrow with [facility] Aviation Project Engineer Future Visits Scheduled: Future Appointments-next 60 days Date/Time Provider Specialty Dept Phone 05/28/2024 1:00 PM Cyndie Hilton RDN [facility] [phone] 06/01/2024 5:30 PM Allison Young RN [facility] [phone] 06/03/2024 12:50 PM Scarlett Nath, [facility] Web Site Manager; Kayla Thompson CRNP [facility] [phone] 06/10/2024 8:30 AM [facility] Mobile Home Draw Laboratory Processing [phone] 06/11/2024 6:00 AM [facility] [phone] 06/17/2024 11:00 AM Billy Basurto MD Hematology Oncology [phone] 06/17/2024 2:30 PM Scarlett Nath Community Health Web Site Manager; Kayla Thompson CRNP [facility] [phone] 07/10/2024 1:40 PM Zohaib Castillo [facility] Web Site Manager; Kayla Thompson CRNP [facility] [phone] 07/14/2024 12:00 PM (Arrive by 11:45 AM) Rashida Jerome PA-C Gastroenterology [phone] 08/18/2024 3:30 PM (Arrive by 3:15 PM) Hema Hercules PA-C Otolaryngology [phone] 08/26/2024 5:40 PM (Arrive by 5:25 PM) Amor Pate MD Family Medicine [phone] 09/10/2024 12:50 PM (Arrive by 12:35 PM) Marilyn Ozuna PA-C Dermatology [phone] 11/03/2024 3:00 PM (Arrive by 2:45 PM) Stephanie Ramos PA-C Cardiology [phone] 12/31/2024 1:00 PM (Arrive by 12:45 PM) [facility] Cardiology [phone] 02/04/2025 12:00 PM Carol Mathew PA-C Family Medicine [phone] Kadie Tellez, RN documented in this encounter Plan of Treatment Upcoming Encounters Date Type Department Care Team (Late st Contact Info) Description 05/28/2024 1:00 PM EDT Scheduled Telephone [facility], [facility] [address] [facility] [place] [address] Cyndie Hilton RDN [address] [place] [address] 06/01/2024 5:30 PM EDT Home Visit [facility], [facility] [address] [facility] [place] [address] Allison Young RN [address] [facility] [place] [address] 06/03/2024 12:50 PM EDT [facility] [place], [address] [place] [address] Kayla Thompson CRNP 132 [facility] [place] [address] Scarlett Nath, Community Health Web Site Manager [address] [place] [address] 06/10/2024 8:30 AM EST Laboratory Lab Mobile Phlebotomy [facility] [address] [place] [address] Gl, [facility] Mobile Home Draw [address] [place] [address] 06/11/2024 6:00 AM EST Anticoagulation Centralized Clinical Pharmacy Services, [address] [place] [address] [facility], [address] [place] [address] 06/17/2024 11:00 AM EST Telemedicine Hematology/Oncology, [address] [place] [address] Billy Basurto MD [address] [place] [address] 06/17/2024 2:30 PM EST Home Visit [facility], [address] [place] [address] Kayla Thompson CRNP 132 [place] [address] Pham, Scarlett, Community Health Web Site Manager [address] [place] [address] 07/10/2024 1:40 PM EST Home Visit ising at [facility] [address] [facility] [place] [address] Kayla Thompson CRNP [address] [place] [address] Zohaib Castillo, [facility] Web Site Manager [address] [place] [address] 07/14/2024 12:00 PM EST Office Visit [facility]ology, [facility] [place] [address] [facility] [phone] Rashida Jerome PA-C 310 [place] [address] 08/18/2024 3:30 PM EST Office Visit Otolaryngology, [place] [address] [place] [address] Hema Hercules PA-C [address] [place] [address] 08/26/2024 5:40 PM EST Office Visit Family [facility], [place] [address] [place] [phone] Amor Pate MD [address] [place] [address] 09/10/2024 12:50 PM EST Office Visit Dermatology, [place] [place] [address] [facility] [address] [place] [address] Marilyn Ozuna PA-C [address] [place] [address] 11/03/2024 3:00 PM EDT Office Visit Cardiology, [place] [address] [place] [address] Stephanie Ramos PA-C [address] [place] [address] 12/31/2024 1:00 PM EDT Cardiac Studies Cardiology, [place] [address] [facility] [place] [address] [facility] [address] [facility] [place] [address] 02/04/2025 12:00 PM EDT Home Visit [facility] at [facility] [address] [place], [place] [phone] Carol Mathew PA-C [address] [place], [place] [phone] Scheduled Procedures Name Priority Associated Diagnoses Date/Ti [...] Additional history exists CKD PHOS USE SMARTSET 10057 08/22/202408/05, 08/20/2023, 11/07/2022, Additional history exists HbA1c 10/14/2024 04/16/2024, 1212/2022, 04/01/2023 Albumin/Creatinine Ratio 12/05/2024 12/06/2023, 0803/2023 Adult Wellness Visit 02/03/2025 02/04/2024, 02/29/20 23 Depression Screening 02/03/2025 02/04/2024, 12/10/19 24 DXA Scan 04/22/2025 04/22/2023, 04/05, 12/25/2018, Additional history exists CKD HGB USE SMARTSET 28896 05/06/202505/06, 05/06/2024, 03/02/2024, Additional history exists Pneumococcal Vaccine: 65+ Years Completed 02/01/2016, 10/27/2002 VITAMIN D LEVEL ONCE IN A LIFETIME-USE SMARTSET# 96074 Completed 04/16/2024, 09/16/2023, 10/20/2019, Additional history exists [...] this encounter Medical Devices Implanted Type Area Seat Covers Trimmer Device Identifier Shelf Expiration Date Model / Serial / Lot Implant System, Trim-It Drill Pin [id number](.078" X 4" Implanted:Qty: 1 on 10/10/2017 by Sydney Castelan DPM at OR [facility] Right: Toe 04/04/2019 AR-4152DS / / [id number] Medtronic Attesta Surescan Pacemaker Implanted:Qty: 1 on 06/09/2020 by Chanel Lin DO at OR [facility] Left: Chest 08/01/2021 ATSR01 / [id number] / Nail [id number] Left [id number] - [id number] Implanted:Qty: 1 on 01/20/2021 by Alli Townsend MD at OR [facility] Left: Hip MILAN : TRAUMA 12/03/2023 3525-034 0S / / [id number] Screw Lag 10.5x95mm - [id number] Implanted:Qty: 1 on 01/20/2021 by Alli Townsend MD at OR [facility] Left: Hip MILAN : TRAUMA 11/02/2025 3060-009 5S / / [id number] Screw T2 Alpha Lock 5x47.5mm - [id number] Implanted:Qty: 1 on 01/20/2021 by Alli Townsend MD at OR [facility] Left: Hip MILAN : TRAUMA 05/04/2029 2360-504 7S / / [id number] documented as of this encounter Advance Directives Documents on File Type Date Recorded Patient Straw Hat Brim Raiser Operator Expl anation POLST 07/15/2023 [place] OR [facility] FOR LIFE-SUSTAINING TREATMENT * Full Code [...] First Alternate Health Care Agent Care Teams Rehab Technician Relationship Specialty Start Date End Date Amor Pate MD [address] [place] [phone] PCP - General Family Medicine 12/06/22 documented as of this encounter
--- OUTSIDE RECORDS SUMMARY | 2024-08-18 16:16 | External Medical Summary | Summary of Care ---
Author Name Unknown Organization [facility] Address [address] [place] [address] Phone [phone] Care Team Providers Care Gage Designer Name Role Phone Amor Pate MD Primary Care Provider [phone] [phone] Reason for Visit * Reason Onset Date Comments [facility]: Acute 05/26/2024 Encounter Details Date Type Department Care Team (Late st Contact Info) Description 05/26/2024 Telephone [facility], [facility] [address] [facility] [place] [id number] Sima Dallas RN [address] [place] [address] [facility]: Acute Allergies No known active allergiesdocumented as of this encounter (statuses as of 05/26/2024) Medications Medication Sig Dispensed Refills Start Date [...] in the morning. 30 Tablet 07/14/2023 Active Vtnxsts-Dzlpirnco-Od tamin D ER 600-40-500 MG-MG-UNIT Tablet Extended [...] morning. 45 Tablet 3 12/25/2023 Active Nystatin 060147 UNIT/GM External CreamIndications:Can didal intertrigo Apply topically [...] as of this encounter (statuses as of 05/26/2024) Active Problems Problem Noted Date Diagnosed Date [...] multicystic lesion of the pancreas CEA, FLUID 65337.0 ng/mL Final COMMENT Final The reference range [...] 06/18/2013 Last Assessment & Plan: S/p pacemaker group home current use of anticoagulant therapy 0 [...] patient does not have a Power of Conservation Worker or Advanced Directives in place at [...] as of this encounter (statuses as of 05/26/2024) Resolved Problems Problem Noted Date Diagnosed Date [...] as of this encounter (statuses as of 05/26/2024) Immunizations Name Administration Dates Next Due COVID-19 [...] encounter Miscellaneous Notes * Telephone Encounter - Sima Dallas RN - 05/26/2024 2:34 PM EDT [facility]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 Nursing Assessment: Patient's chief complaint for this call: Pt reports that she is having UTI symptoms. Reports burning on urination, frequency and feeling like she is not emptying her bladder when she she goes. Pt reports she is very weak and tired. Denies fever or chills. Denies blood in stool. Pain Has pain Pain level: 2 Location: bladder Quality of Pain: burning on urination Does the pain radiate: No Baseline Assessment Able to performing ADLs at baseline (walking, daily tasks, etc.): No Chief Complaint is related to a chronic condition: No Patient prescribed oxygen? No Patient has been ordered DME equipment (assistive devices, respiratory equipment, etc.): No Medication Reconciliation: (See medication list) Received flu shot this season: Unknown Taking medication as ordered: Yes Medications ordered/taking to treat reason for call: No Heart failure symptoms: No COPD exacerbation symptoms: No Reinforcement Education: Urine specimen order placed. Pt has a urine specimen cup in the home. Will collect specimen and have her aid take it to the lab. Treatment/Plan: (need to report) Level of call: Non-Acute Recommended treatment plan: Clinical advice given over the phone FC call scheduled for tomorrow for follow up. Call back instructions provided to patient. documented in this encounter Plan of Treatment Upcoming Encounters Date Type Department Care Team (Late st Contact Info) Description 05/27/2024 11:00 AM EDT Scheduled Telephone [facility], [facility] [address] [facility] [place] [address] Coordinator, [facility] [address] [place] [address] 05/28/2024 1:00 PM EDT Scheduled Telephone [facility], [facility] [address] [facility] [place] [address] Cynide Hilton RDN [address] [place] [address] 06/01/2024 5:30 PM EDT Home Visit [facility] [place], [facility] 132 [facility] [place] [address] Allison Young RN 132 [facility] [address] 06/03/2024 12:50 PM EDT Home Visit [facility] [place], [facility] 132 [facility] [address] Kayla Thompson CRNP 132 [facility] [place] [address] Scarlett Nath, [facility] Hand Fretted Instrument Maker [address] [place] [address] 06/10/2024 8:30 AM EST Laboratory Lab Mobile Phlebotomy GL 400 [facility] [address] Gl, [facility] Mobile Home Draw 400 [place] [address] 06/11/2024 6:00 AM EST Anticoagulation Centralized Clinical Pharmacy Services, [address] [place] [address] [place] [address] 06/17/2024 11:00 AM EST Telemedicine Hematology/Oncology, [address] [address] Billy Basurto MD [address] [place] [phone] 06/17/2024 2:30 PM EST [facility] Visit [facility] [place], [facility] 132 [facility] [place] [address] Kayla Thompson CRNP 132 [place] [address] Scarlett Nath, [facility] Hand Fretted Instrument Maker [address] [place] [address] 07/10/2024 1:40 PM EST Home Visit [facility] 132 [place] [address] Kayla Thompson CRNP 132 [place] [address] Zohaib Castillo, [facility] Hand Fretted Instrument Maker [address] [place] [address] 07/14/2024 12:00 PM EST Office Visit Gastroenterology, [facility] [address] [place] [phone] Rashida Jerome PA-C 310 [facility] [place] [address] 08/18/2024 3:30 PM EST Office Visit Otolaryngology, [place] [address] [place] [address] Hema Hercules PA-C [address] [place] [address] 08/26/2024 5:40 PM EST Office Visit Family [facility], [place] [facility] [place] [phone] Amor Pate MD [facility] [place] [address] 09/10/2024 12:50 PM EST Office Visit Dermatology, [place] [address] [facility] 140 [place] [address] Marilyn Ozuna PA-C [address] [place] [address] 11/03/2024 3:00 PM EDT Office Visit Cardiology, [place] 400 [place] [address] Stephanie Ramos PA-C 400 [place] [address] 12/31/2024 1:00 PM EDT Cardiac Studies Cardiology, [place] 400 [place] [address] [place] 400 [place] [address] 02/04/2025 12:00 PM EDT Home Visit Care at Home [address] [place] [address] Carol Mathew PA-C [address] [place] [address] Scheduled Orders Name Type Priority Associated Diagnoses Orde r Schedule URINALYSIS, REFLEX TO CULTURE (NOT FOR NEUTROPENIC PATIENTS) Lab Routine UTI (urinary tract infection) Expected: 05/26/2024, Expires: 05/26/2025 Scheduled Procedures Name Priority Associated Diagnoses Date/Ti [...] Additional history exists CKD PHOS USE SMARTSET 66197 08/22/202408/05, 08/20/2023, 11/07/2022, Additional history exists HbA1c 10/14/2024 04/16/2024, 12/0 12/2022, 04/01/2023 Albumin/Creatinine Ratio 12/05/2024 12/06/2023, 03/06 Adult Wellness Visit 02/03/2025 02/04/2024, 02/29/20 23 Depression Screening 02/03/2025 02/04/2024, 12/10/19 24 DXA Scan 04/22/2025 04/22/2023, 04/05, 12/25/2018, Additional history exists CKD HGB USE SMARTSET 53620 05/06/202505/06, 05/06/2024, 03/02/2024, Additional history exists Pneumococcal Vaccine: 65+ Years Completed 02/01/2016, 10/27/2002 VITAMIN D LEVEL ONCE IN A LIFETIME-USE SMARTSET# 20483 Completed 04/16/2024, 09/16/2023, 10/20/2019, Additional history exists [...] this encounter Medical Devices Implanted Type Area Business Management Intern Device Identifier Shelf Expiration Date Model / Serial / Lot Implant System, Trim-It Drill Pin [id number]" X 4" Implanted:Qty: 1 on 10/10/2017 by Sydney Castelan DPM at OR [facility] Right: Toe 04/04/2019 AR-4152DS / / [id number] Medtronic Attesta Surescan Pacemaker Implanted:Qty: 1 on 06/09/2020 by Chanel Lin DO at OR [facility] Left: Chest 08/01/2021 ATSR01 / [id number] / Nail Gamma3 Left [id number] - [id number] Implanted:Qty: 1 on 01/20/2021 by Alli Townsend MD at OR [facility] Left: Hip MILAN : TRAUMA 12/03/2023 3525-034 0S / / [id number] Screw Lag 10.5x95mm - [id number] Implanted:Qty: 1 on 01/20/2021 by Alli Townsend MD at OR [facility] Left: Hip MILAN : TRAUMA 11/02/2025 3060-009 5S / / [id number] Screw T2 Alpha Lock 5x47.5mm - [id number] Implanted:Qty: 1 on 01/20/2021 by Alli Townsend MD at OR [facility] Left: Hip MILAN : TRAUMA 05/04/2029 2360-504 7S / / [id number] documented as of this encounter Visit Diagnoses Diagnosis UTI (urinary tract infection)- Primary Urinary tract infection, site not specified documented in this encounter Advance Directives Documents on File Type Date Recorded Patient Central Processing Tech Expl anation POLST 07/15/2023 [place] OR [facility] FOR LIFE-SUSTAINING TREATMENT * [...] First Alternate Health Care Agent Care Teams Gage Designer Relationship Specialty Start Date End Date Amor Pate MD [address] [place] [phone] PCP - General Family Medicine 12/06/22 documented as of this encounter
--- OUTSIDE RECORDS SUMMARY | 2024-08-18 16:16 | External Medical Summary ---
Author Name Unknown Address Unknown Organization K01:[facility] [place] [address] [place] [address] Laboratory Report Ordering Provider Test Date Status MADAI VARMA 05/27/2024 12:31:25 Final Observation Date Value Abnormality Reference (Units) Status Bacteria identified in Specimen by Culture 05/27/2024 12:31:25 No significant growth Final Test: Culture, Urine, Quanti tative
Specimen Source: Urine, Unspecified
Specimen Type: Urine
Specimen Date: 05/27/2024 1231
Result Date: 05/28/2024 1431
Result Status: Final result
Resulting Lab: [facility]
[address]
[place] [address]

CULTURE

No significant growth

null Performing Location [facility] [place] [place] [address] [facility] [address]
--- OUTSIDE RECORDS SUMMARY | 2024-08-18 16:16 | External Medical Summary | Summary of Care ---
Author Name Unknown Organization [facility] Address [address] [place] [address] Phone [phone] Care Team Providers Care Dining Room Host Name Role Phone Amor Pate MD Primary Care Provider [phone] Reason for Visit * Reason Onset Date Comments [facility]: Acute 05/26/2024 Encounter Details Date Type Department Care Team (Late st Contact Info) Description 05/26/2024 Telephone [facility], [facility] [address] [facility] [place] [phone] Sima Dallas RN [address] [place] [address] [facility]: Acute Allergies No known [...] in the morning. 30 Tablet 07/14/2023 Active Qbkrooy-Zidldhjcc-Go tamin D ER 600-40-500 MG-MG-UNIT Tablet Extended [...] morning. 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 [place] [address] Coordinator, [facility] [place] [address] [place] [address] 05/28/2024 1:00 PM EDT Scheduled Telephone [facility], [facility] [address] [facility] [place] [address] Cyndie Hilton RDN [address] [place] [address] 06/01/2024 5:30 PM EDT Home Visit [facility] [place], [facility] 132 [facility] [place] [address] Allison Young RN [address] [facility] [place] [address] 06/03/2024 12:50 PM EDT Home Visit [facility] [place], [facility] 132 [facility] [place] [address] Kayla Thompson CRNP 132 [facility] [place] [address] Scarlett Nath, [facility] Laboratory Asst 100 [place] [address] 06/10/2024 8:30 AM EST Laboratory Lab Mobile Phlebotomy GL 400 [place] [address] Gl, [facility] Mobile Home Draw 400 [place] [address] 06/11/2024 6:00 AM EST Anticoagulation Centralized Clinical Pharmacy Services, [address] [place] [address] [place] [address] 06/17/2024 11:00 AM EST Telemedicine Hematology/Oncology, [address] [address] Billy Basurto MD [address] [place] [phone] 06/17/2024 2:30 PM EST [facility] Visit [facility] [place], [facility] 132 [facility] [place] [address] Kayla Thompson CRNP 132 [place] [address] Scarlett Nath, [facility] Laboratory Asst [address] [place] [address] 07/10/2024 1:40 PM EST Home Visit [facility] 132 [place] [address] Kayla Thompson CRNP 132 [place] [address] Zohaib Castillo, [facility] Health Laboratory Asst [address] [place] [address] 07/14/2024 12:00 PM EST Office Visit Gastroenterology, [facility] [address] [facility] [address] Rashida Jerome PA-C 310 [place] [address] 08/18/2024 3:30 PM EST Office Visit Otolaryngology, [place] [address] [place] [address] Hema Hercules PA-C [address] [place] [address] 08/26/2024 5:40 PM EST Office Visit Family [facility], [place] [facility] [place] [phone] Amor Pate MD [address] [facility] [place] [address] 09/10/2024 12:50 PM EST Office Visit Dermatology, [place] Caballero [address] [facility] 140 [place] [address] Marilyn Ozuna PA-C [address] [place] [address] 11/03/2024 3:00 PM EDT Office Visit Cardiology, [place] 400 [facility] [place] [address] Stephanie Ramos PA-C 400 [place] [address] 12/31/2024 1:00 PM EDT Cardiac Studies Cardiology, [place] 400 [place] [address] [place], [facility] 400 [place] [address] 02/04/2025 12:00 PM EDT Home Visit Care at Home [address] [place] [address] Carol Mathew PA-C [address] [place] [address] Scheduled Orders Name Type Priority Associated Diagnoses [...] Additional history exists CKD PHOS USE SMARTSET 07111 08/22/202408/05, 08/20/2023, 11/07/2022, Additional history exists HbA1c 10/14/2024 04/16/2024, 12/0 12/2022, 04/01/2023 Albumin/Creatinine Ratio 12/05/2024 12/06/2023, 03/06 Adult Wellness Visit 02/03/2025 02/04/2024, 02/29/20 23 Depression Screening 02/03/2025 02/04/2024, 12/10/19 24 DXA Scan 04/22/2025 04/22/2023, 04/05, 12/25/2018, Additional history exists CKD HGB USE SMARTSET 88516 05/06/202505/06, 05/06/2024, 03/02/2024, Additional history exists Pneumococcal Vaccine: 65+ Years Completed 02/01/2016, 10/27/2002 VITAMIN D LEVEL ONCE IN A LIFETIME-USE SMARTSET# 88258 Completed 04/16/2024, 09/16/2023, 10/20/2019, Additional history exists [...] this encounter Medical Devices Implanted Type Area Jackhammer Operator Device Identifier Shelf Expiration Date Model / Serial / Lot Implant System, Trim-It Drill Pin [id number](.078" X 4" Implanted:Qty: 1 on 10/10/2017 by Sydney Castelan DPM at OR [facility] Right: Toe 04/04/2019 AR-4152DS / / [id number] Atsr01 Medtronic Attesta Surescan Pacemaker Implanted:Qty: 1 on 06/09/2020 by Chanel Lin DO at OR [facility] Left: Chest 08/01/2021 ATSR01 / [id number] / Nail Gamma3 Left [id number] - [id number] Implanted:Qty: 1 on 01/20/2021 by Alli Townsend MD at OR [facility] Left: Hip MILAN : TRAUMA 12/03/2023 3525-034 0S / / [id number] Screw Lag 10.5x95mm - [id number] Implanted:Qty: 1 on 01/20/2021 by Alli Townsend MD at OR [facility] Left: Hip MILAN : TRAUMA 11/02/2025 3060-009 5S / / [id number] Screw T2 Alpha Lock 5x47.5mm - [id number] Implanted:Qty: 1 on 01/20/2021 by Alli Townsend MD at OR [facility] Left: Hip MILAN : TRAUMA 05/04/2029 2360-504 7S / / [id number] documented as of this encounter Visit Diagnoses Diagnosis UTI (urinary tract infection)- Primary Urinary tract infection, site not specified documented in this encounter Advance Directives Documents on File Type Date Recorded Patient Chef'S Assistant Expl anation POLST 07/15/2023 [place] OR [facility] FOR LIFE-SUSTAINING TREATMENT * Full [...] First Alternate Health Care Agent Care Teams Dining Room Host Relationship Specialty Start Date End Date Amor Pate MD [address] [place] [phone] PCP - General Family Medicine 12/06/22 documented as of this encounter
--- OUTSIDE RECORDS SUMMARY | 2024-08-18 16:16 | External Medical Summary ---
Author Name Unknown Address Unknown Organization K01:[facility] [place] - 100 [facility] [address] Laboratory Report Ordering Provider Test Date Status MADAI VARMA 05/27/2024 12:31:25 Final Observation Date Value Abnormality Reference (Units ) Status Color of Urine by Auto 05/27/2024 12:31:25 Yellow Colorless, Light Yellow, Yellow, Dark Yellow Final Clarity, Urine 05/27/2024 12:31:25 Slightly Cloudy Abnormal Clear Final Glucose [Mass/volume] in Urine by Automated test strip 05/27/2024 12:31:25 Negative Negative (mg/dL) Final Bilirubin.total [Presence] in Urine by Automated test strip 05/27/2024 12:31:25 Negative Negative Final Ketones [Mass/volume] in Urine by Automated test strip 05/27/2024 12:31:25 Negative Negative (mg/dL) Final Specific gravity, Urine 05/27/2024 12:31:25 1.027 1.003-1.030 Final Hemoglobin [Presence] in Urine by Automated test strip 05/27/2024 12:31:25 Negative Negative Final pH, Urine 05/27/2024 12:31:25 6.0 5.0-7.5 (Units) Final Protein [Mass/volume] in Urine by Automated test strip 05/27/2024 12:31:25 Trace Abnormal Negative (mg/dL) Final Urobilinogen [Mass/volume] in Urine by Automated test strip 05/27/2024 12:31:25 Normal Normal (mg/dL) Final Nitrite [Presence] in Urine by Automated test strip 05/27/2024 12:31:25 Negative Negative Final Leukocyte esterase [Presence] in Urine by Automated test strip 05/27/2024 12:31:25 Large Abnormal Negative Final RBC, Urine 05/27/2024 12:31:25 3-5 Abnormal 0-2 (/HPF) Final WBC, Urine 05/27/2024 12:31:25 50+ Abnormal 0-2 (/HPF) Final Bacteria [#/area] in Urine sediment by Microscopy high power field 05/27/2024 12:31:25 151-200 Abnormal 0-25 (/HPF) Final Epithelial cells.squamous [#/area] in Urine sediment by Microscopy high power field 05/27/2024 12:31:25 Many Abnormal None (/HPF) Final Calcium oxalate crystals [#/area] in Urine sediment by Microscopy high power field 05/27/2024 12:31:25 50+ Abnormal None (/HPF) Final Hyaline casts, Urine 05/27/2024 12:31:25 10-19 Abnormal None (/LPF) Final Epithelial cells.renal [#/area] in Urine sediment by Microscopy high power field 05/27/2024 12:31:25 1-4 Abnormal None (/HPF) Final Transitional cells [#/area] in Urine sediment by Microscopy high power field 05/27/2024 12:31:25 1-4 Abnormal None (/HPF) Final CULTURE, URINE - [facility] 05/27/2024 12:31:25 Final Quantitative urine culture t o be performed Performing Location [facility] [place] - [address] [facility] [address]
--- OUTSIDE RECORDS SUMMARY | 2024-08-18 16:16 | External Medical Summary | Summary of Care ---
Author Name Unknown Organization [facility] Address [address] [place] [address] Phone [phone] Care Team Providers Care Chemical Laboratory Scientist Name Role Phone Amor Pate MD Primary Care Provider [phone] Reason for Visit * Reason Comments Outpatient Testing Encounter Details Date Type Department Care Team ([facility] Contact Info) Description 05/27/2024 12:30 PM EDT Laboratory Laboratory, [address] [address] Peter, Specimen Drop Off [address] [address] UTI (urinary tract infection) Allergies [...] in the morning. 30 Tablet 07/14/2023 Active Bvcjsfz-Jfsaucexx-Mc tamin D ER 600-40-500 MG-MG-UNIT Tablet Extended [...] morning. 45 Tablet 3 12/25/2023 Active Nystatin 127309 UNIT/GM External CreamIndications:Can didal intertrigo Apply topically [...] multicystic lesion of the pancreas CEA, FLUID 21622.0 ng/mL Final COMMENT Final The reference range [...] patient does not have a Power of Propeller Mechanic or Advanced Directives in place at [...] PM EDT Scheduled Telephone [facility], [facility] [address] [place] [address] Cyndie Hilton RDN [address] [place] [address] 06/01/2024 5:30 PM EDT [facility], [facility] [address] [place] [address] Allison Young RN [address] [place] [address] 06/03/2024 12:50 PM EDT [facility] Visit [facility], [facility] 132 [facility] [place] [address] Kayla Thompson CRNP 132 [place] [address] Scarlett Nath, Community Health Ceramics Artist [address] [place] [address] 06/10/2024 8:30 AM EST Laboratory Lab Mobile Phlebotomy GL [address] [place] [address] Gl, [facility] Mobile Home Draw [address] [place] [address] 06/11/2024 6:00 AM EST Anticoagulation Centralized Clinical Pharmacy Services, [address] [place] [address] [place] [address] 06/17/2024 11:00 AM EST Telemedicine Hematology/Oncology, [address] [address] Billy Basurto MD [address] [place] [address] 06/17/2024 2:30 PM EST [facility] Visit [facility], [facility] [address] [facility] [place] [address] Kayla Thompson CRNP 132 [facility] [place] [address] Scarlett Nath, Community Health Ceramics Artist [address] [place] [address] 07/10/2024 1:40 PM EST Home Visit [facility] 132 [facility] [place] [address] Kayla Thompson CRNP 132 [facility] [place] [address] Zohaib Castillo, [facility] Health Ceramics Artist [address] [place] [address] 07/14/2024 12:00 PM EST Office Visit Gastroenterology, [facility] [address] [place] [address] Rashida Jerome PA-C 310 [facility] [place] [address] 08/18/2024 3:30 PM EST Office Visit Otolaryngology, [place] [address] [place] [address] Hema Hercules PA-C [address] [place] [address] 08/26/2024 5:40 PM EST Office Visit Family [facility], [place] [address] [facility] [place] [phone] Amor Pate MD [address] [facility] [place] [address] 09/10/2024 12:50 PM EST Office Visit Dermatology, [place] [address] [place] [address] Marilyn Ozuna PA-C [address] [place] cheng [address] 11/03/2024 3:00 PM EDT Office Visit Cardiology, [place] 400 [facility] [place] [address] Stephanie Ramos PA-C [address] [place] [address] 12/31/2024 1:00 PM EDT Cardiac Studies Cardiology, [place] 400 [facility] [place] [address] [place], [facility] 400 [facility] [address] 02/04/2025 12:00 PM EDT Home Visit Care at Home [address] [place] [address] Carol Mathew PA-C [address] [place] [address] Pending Results Name Type Priority Associated Diagnoses [...] Additional history exists CKD PHOS USE SMARTSET 54000 08/22/202408/05, 08/20/2023, 11/07/2022, Additional history exists HbA1c 10/14/2024 04/16/2024, 1212/2022, 04/01/2023 Albumin/Creatinine Ratio 12/05/2024 12/06/2023, 03/06 Adult Wellness Visit 02/03/2025 02/04/2024, 02/29/20 23 Depression Screening 02/03/2025 02/04/2024, 12/10/19 24 DXA Scan 04/22/2025 04/22/2023, 04/05, 12/25/2018, Additional history exists CKD HGB USE SMARTSET 63392 05/06/202505/06, 05/06/2024, 03/02/2024, Additional history exists Pneumococcal Vaccine: 65+ Years Completed 02/01/2016, 10/27/2002 VITAMIN D LEVEL ONCE IN A LIFETIME-USE SMARTSET# 79015 Completed 04/16/2024, 09/16/2023, 10/20/2019, Additional history exists [...] encounter Medical Devices Implanted Type Area Manager Play Device Identifier Shelf Expiration Date Model / Serial / Lot Implant System, Trim-It Drill Pin [id number]" X 4" Implanted:Qty: 1 on 10/10/2017 by Sydney Castelan DPM at OR [facility] Right: Toe 04/04/2019 AR-[id number] / / [id number] Atsr01 Medtronic Attesta Surescan Pacemaker Implanted:Qty: 1 on 06/09/2020 by Chanel Lin DO at OR [facility] Left: Chest 08/01/2021 ATSR01 / [id number] / Nail [id number] Left [id number] - [id number] Implanted:Qty: 1 on 01/20/2021 by Alli Townsend MD at OR [facility] Left: Hip MILAN : TRAUMA 12/03/2023 3525-034 0S / / [id number] Screw Lag 10.5x95mm - [id number] Implanted:Qty: 1 on 01/20/2021 by Alli Townsend MD at OR [facility] Left: Hip MILAN : TRAUMA 11/02/2025 3060-009 5S / / [id number] Screw T2 Alpha Lock 5x47.5mm - [id number] Implanted:Qty: 1 on 01/20/2021 by Alli Townsend MD at OR [facility] Left: Hip MILAN : TRAUMA 05/04/2029 2360-504 7S / / [id number] documented as of this encounter Visit Diagnoses Diagnosis UTI (urinary tract infection) Urinary tract infection, site not specified documented in this encounter Advance Directives Documents on File Type Date Recorded Patient Children'S Book Author Expl anation POLST 07/15/2023 [place] OR [facility] FOR LIFE-SUSTAINING TREATMENT * Full [...] First Alternate Health Care Agent Care Teams Chemical Laboratory Scientist Relationship Specialty Start Date End Date Amor Pate MD [address] [place] [phone] PCP - General Family Medicine 12/06/22 documented as of this encounter
--- OUTSIDE RECORDS SUMMARY | 2024-08-18 16:16 | External Medical Summary | Summary of Care ---
Author Name Unknown Organization [facility] Address [address] [place] [address] Phone [phone] Care Team Providers Care Banking Center Manager Name Role Phone Amor Pate MD Primary Care Provider [phone] Reason for Visit * Reason Comments Dosage Adjustment Via Phone (anticoag Cl inic) Encounter Details Date Type Department Care Team (Late st Contact Info) Description 05/21/2024 6:00 AM EDT Anticoagulation Centralized Clinical Pharmacy Services, Derrek Denton [address] [place] [address] [place] [address] [place] [address] long-term current use of anticoagulant therapy* Allergies No known active allergiesdocumented as of this encounter (statuses as of 05/21/2024) Medications Medication Sig Dispensed Refills Start Date [...] in the morning. 30 Tablet 07/14/2023 Active Vvepnfg-Oftuvwpnz-Me tamin D ER 600-40-500 MG-MG-UNIT Tablet Extended [...] morning. 45 Tablet 3 12/25/2023 Active Nystatin 163180 UNIT/GM External CreamIndications:Can didal intertrigo Apply topically [...] as of this encounter (statuses as of 05/21/2024) Active Problems Problem Noted Date Diagnosed Date [...] multicystic lesion of the pancreas CEA, FLUID 88888.0 ng/mL Final COMMENT Final The reference range [...] patient does not have a Power of Career Center Director or Advanced Directives in place at this [...] as of this encounter (statuses as of 05/21/2024) Resolved Problems Problem Noted Date Diagnosed Date [...] as of this encounter (statuses as of 05/21/2024) Immunizations Name Administration Dates Next Due COVID-19 [...] as of this encounter Progress Notes * Gadiel Dominguez, receptionist telephone operator - 05/21/2024 9:59 AM EDT Contacts Contact Date/Time Type Contact Phone/Fax 05/21/2024 09:58 AM EDT Phone (Outgoing) Zulma Villar (Self) [phone] (H) Spoke to Patient Subjective Patient Findings [...] date communicated as noted by Pharmacist: Yes Gadiel Dominguez CPhT 05/21/2024, 9:59 AM * Kadie Byers RPh - 05/21/2024 9:30 AM EDT Coumadin Clinic (region specific) Objective Current Warfarin Dose As of 05/21/2024 Warfarin maintenance plan: 4 mg (2 mg x 2) every Fri; 2 mg (2 mg x 1) all other days INR Result As of 05/21/2024 INR goal: 2.0-3.0 INR used for dosin.4 (05/20/2024) Assessment & Plan Warfarin Plan As of 05/21/2024 Full warfarin instructions: 4 mg every Fri; 2 mg all other days No change documented: Kadie Byres RPh Next INR check: 06/10/2024 Repeat PT/INR in 3 week(s) Weekly dose: not changed Additional Dosing Information: Description LINCOLN Lorraine Singh fax [phone] Boost- 1/day Tech to contact patient with dose instructions as noted. Kadie Byers RPh 05/21/2024, 9:30 AM documented in this encounter Plan of Treatment Upcoming Encounters Date Type Department Care Team (Late st Contact Info) Description 05/28/2024 1:00 PM EDT Scheduled Telephone [facility], [facility] [address] [place] [address] Cyndie Hilton, [place] [address] [facility] [place] [address] 06/01/2024 5:30 PM EDT [facility] [place], [facility] 132 [place] [address] Allison Young RN 132 [facility] [place] [address] 06/03/2024 12:50 PM EDT Home Visit [facility] [place], [facility] [address] [facility] [place] [address] Kayla Thompson CRNP 132 [facility] [place] [address] Scarlett Nath, Community Health Program Director [place] [address] [place] [address] 06/10/2024 8:30 AM EST Laboratory Lab Mobile Phlebotomy [facility] [address] [place] [address] Gl, [facility] Mobile Home Draw [address] [place] [address] 06/11/2024 6:00 AM EST Anticoagulation Centralized Clinical Pharmacy Services, [address] [place] [address] [place] [address] 06/17/2024 11:00 AM EST Telemedicine Hematology/Oncology, [address] [place] [address] Billy Basurto MD [address] [place] [address] 06/17/2024 2:30 PM EST [facility] Visit [facility] [place], [facility] [address] [facility] [place] [address] Kayla Thompson CRNP [address] [facility] [address] Scarlett Nath, [facility] Health Program Director [place] [address] [place] [address] 07/10/2024 1:40 PM EST Home Visit [facility] [address] [facility] [place] [address] Kayla Thompson CRNP [address] [place] [address] Zohaib Castillo [facility] Health Program Director [place] [address] [place] [address] 07/14/2024 12:00 PM EST Office Visit Gastroenterology, [facility] [place] [address] [facility] [place] [address] Rashida Jerome PA-C [address] [place] [address] 08/18/2024 3:30 PM EST Office Visit Otolaryngology[place]woa [place] [address] [place] [address] Hema Hercules PA-C 27 [place] [address] 08/26/2024 5:40 PM EST Office Visit Family [facility], [place] [address] [facility] [place] [phone] Amor Pate MD [address] [facility] [place] [address] 09/10/2024 12:50 PM EST Office Visit Dermatology, [place] Caball[place] [address] [facility] 140 [place] [address] Marilyn Ozuna PA-C [address] [place] [address] 11/03/2024 3:00 PM EDT Office Visit Cardiology, [place] 400 [facility] [place] [address] Stephanie Ramos PA-C [address] [place] [address] 12/31/2024 1:00 PM EDT Cardiac Studies Cardiology, [place] 400 [facility] [place] [address] [facility] 400 [facility] [place] [address] 02/04/2025 12:00 PM EDT Home Visit Care at Home [address] [place] [address] Carol Mathew PA-C [address] [place] [address] Scheduled Procedures Name Priority Associated Diagnoses Date/Ti [...] Additional history exists CKD PHOS USE SMARTSET 20082 08/22/202408/05, 08/20/2023, 11/07/2022, Additional history exists HbA1c 10/14/2024 04/16/2024, 1212/2022, 04/01/2023 Albumin/Creatinine Ratio 12/05/2024 12/06/2023, 0803/2023 Adult Wellness Visit 02/03/2025 02/04/2024, 02/29/20 23 Depression Screening 02/03/2025 02/04/2024, 12/10/19 24 DXA Scan 04/22/2025 04/22/2023, 04/05, 12/25/2018, Additional history exists CKD HGB USE SMARTSET 97515 05/06/202505/06, 05/06/2024, 03/02/2024, Additional history exists Pneumococcal Vaccine: 65+ Years Completed 02/01/2016, 10/27/2002 VITAMIN D LEVEL ONCE IN A LIFETIME-USE SMARTSET# 05434 Completed 04/16/2024, 09/16/2023, 10/20/2019, Additional history exists [...] encounter Medical Devices Implanted Type Area Manager Workers Compensation Device Identifier Shelf Expiration Date Model / Serial / Lot Implant System, Trim-It Drill Pin [id number](.078" X 4" Implanted:Qty: 1 on 10/10/2017 by Sydney Castelan DPM at OR [facility] Right: Toe 04/04/2019 AR-[id number] / / [id number] Atsr01 Medtronic Attesta Surescan Pacemaker Implanted:Qty: 1 on 06/09/2020 by Chanel Lin DO at OR [facility] Left: Chest 08/01/2021 ATSR01 / [id number] / Nail Gamma3 Left [id number] - [id number] Implanted:Qty: 1 on 01/20/2021 by Alli Townsend MD at OR [facility] Left: Hip MILAN : TRAUMA 12/03/2023 3525-034 0S / / [id number] Screw Lag 10.5x95mm - [id number] Implanted:Qty: 1 on 01/20/2021 by Alli Townsend MD at OR [facility] Left: Hip MILAN : TRAUMA 11/02/2025 3060-009 5S / / [id number] Screw T2 Alpha Lock 5x47.5mm - [id number] Implanted:Qty: 1 on 01/20/2021 by Alli Townsend MD at OR [facility] Left: Hip MILAN : TRAUMA 05/04/2029 2360-504 7S / / [id number] documented as of this encounter Visit Diagnoses Diagnosis long-term current use of anticoagulant therapy- Primary documented in this encounter Advance Directives Documents on File Type Date Recorded Patient Welder Oxyhydrogen Expl anation POLST 07/15/2023 [place] OR [facility] FOR LIFE-SUSTAINING [...] First Alternate Health Care Agent Care Teams Banking Center Manager Relationship Specialty Start Date End Date Amor Pate MD [address] [place] [id number] PCP - General Family Medicine 12/06/22 documented as of this encounter
--- OUTSIDE RECORDS SUMMARY | 2024-08-18 16:17 | External Medical Summary | Summary of Care ---
Author Name Unknown Organization [facility] Address [address] [place] [address] Phone [phone] Care Team Providers Care Customer Program Specialist Name Role Phone Amor Pate MD Primary Care Provider [phone] Reason for Visit * Reason Comments Re-Check HX SCCIS left neck - now has a crust on area and she is concerned. Encounter Details Date Type Department Care Team (Late st Contact Info) Description 05/14/2024 10:20 AM EDT Office Visit Dermatology, Francisco Caballero [address] [facility] [address] [address] Marilyn Ozuna PA-C [address] [address] Neoplasm of uncertain behavior of skin* Allergies No known active allergiesdocumented as of this encounter (statuses as of 05/14/2024) Medications Medication Sig Dispensed Refills Start Date [...] in the morning. 30 Tablet 07/14/2023 Active Kqrmwhd-Znazcwtbu-Yw tamin D ER 600-40-500 MG-MG-UNIT Tablet Extended [...] morning. 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 Never true 05/07/20 Within the past 12 months, t he food you bought just didn't last and you didn't have money to get more. Never true 05/07/2024 Childcare Answer Date Recorded Do you feel overwhelmed with taking care of a child, family member or friend? No 05/07/2024 Does your family need help f inding childcare? (Household - for ages 0-17 years) Not on file 05/07/2024 Clothing Answer Date Recorded Have you been unable to get clothing when it was really needed? No 05/07/2024 Is your family able to get c lothes or diapers when needed? (Household - for ages 0-17 years) Not on file 05/07/2024 Personal Safety Answer Date Recorded Do you feel unsafe or have concerns for your saf ety? No 05/07/2024 Do you have concerns for you r family's safety? (Household - for ages 0-17 years) Not on file 05/07/2024 Utilities Answer Date Recorded Do you have trouble paying y our heating, water, or electric bill? No 04/01/2024 Is your family able to pay t he heat, water, or electric bill? (Household - for ages 0-17 years) Not on file 04/01/2024 Does your family have access to good internet? (Household - for ages 0-17 years) Not on file 04/01/2024 Employment Status Answer Date Recorded Are you unemployed or without regular income? No 05/07/2024 Does the household have a re gular source of income? (Household - for ages 0-17 years) Not on file 05/07/2024 Social Connections Answer Date Recorded How often do you feel lonely or isolated from th ose around you? Rarely 05/07/2024 Financial Resource Strain Answer Date R ecorded Do you have any trouble payi ng for your medications, or do you think you might in the future? No 05/07/2024 Does your family have troubl e paying for medicine? (Household - for ages 0-17 years) Not on file 05/07/2024 Transportation Needs Answer Date Record ed READ ONLY Do you have troubl e getting a ride to medical visits or work? Never True 05/07/2024 Does your family have a hard time getting a ride to doctors visits? (Household - for ages 0-17 years) Not on file 05/07/2024 Has lack of transportation k ept you from medical appointments, meetings, work, or from getting things needed for daily living? Check all that apply. No 05/07/2024 Do you (or your family) have trouble finding or paying for a ride (transportation)? (Household - for ages 0-17 years) Not on file 05/07/2024 Housing Stability Answer Date Recorded Do you currently live in a s helter or have no steady place to sleep at night? No 05/07/2024 READ ONLY Do you think you a re at risk of becoming homeless? No 05/07/2024 Does your family worry about paying for your home or becoming homeless? (Household - for ages 0-17 years) Not on file 1 Are you homeless or worried that you might be in the future? No 05/07/2024 Are you (or your family) jun eless or worried that you might be in the future? (Household - for ages 0-17 years) Not on file Food Insecurity Answer Date Recorded Do you need food for this week? No 05/07/2024 Are you able to get enough f ood for your family? (Household - for ages 0-17 years) Not on file 05/07/2024 Does your family need food t his week? (Household - for ages 0-17 years) Not on file 05/07/2024 Do you always have enough fo od for your family? (Household - for ages 0-17 years) Not on file 05/07/2024 Sex and Gender Information Value Date Recorded [...] as of this encounter Progress Notes * Marilyn Ozuna PA-C - 05/14/2024 10:20 AM EDT SUBJECTIVE: CC: Chief Complaint Patient presents with Re-Check HX SCCIS left neck - now has a crust on area and she is concerned. HPI: Zulma Villar is a 88 year old female who is an established patient presenting for follow-up. Accompanied by caregiver today. Last dermatology clinic visit: 09/03/2023 for skin check. At last visit s/p shave and curettage SCCis L lateral neck. She states lesion returned a few months ago and is tender. 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 30 Tablet 0 Hlesiky-Hygsltsnq-Xpaqxxi D ER 600-40-500 MG-MG-UNIT Tablet Extended Release 24 Hour one daily (mayuse otc ) 30 Tablet 0 Sertraline HCl 50 MG Oral Tablet (Zoloft) Take 1 Tablet by mouth in the morning. 30 Tablet 5 Folic Acid 0.8 MG Oral Capsule Take 1 Tablet by mouth in the morning. Atorvastatin Calcium 20 MG Oral Tablet (Lipitor) Take 1 Tablet by mouth daily. 90 Tablet 3 Metoprolol Succinate ER 25 MG Oral Tablet Extended Release 24 Hour (toPROL XL) Take 0.5 Tablets by mouth in the morning. 45 Tablet 3 Nystatin 160937 UNIT/GM External Cream Apply topically to affected [...] 1 IN THE EVENING 180 Tablet 0 No current facility-administered medications for this visit. ALLERG Y: Patient has no known allergies. OBJECTIVE: GEN: Healthy, alert, no distress, appears oriented, pleasant, and cooperative. PSYCH: Appropriate mood and affect, alert SKIN: Problem focused exam of the neck was completed and are within normal limits with the following exceptions: 1A. L lateral neck- 1.4 cm pink hyperkeratotic plaque DDX: SCCis, SCC ASSESSMENT/PLAN: Neoplasm of uncertain behavior of skin (Primary) - DERM IMAGE (SITE) - SURGICAL PATHOLOGY A. L lateral neck- 1.4 cm pink hyperkeratotic plaque DDX: recurrent SCCis, SCC -Shave removal and curettage of the lesion noted above to remove and confirm diagnosis. The procedure, risks including but not limited to; (scarring, bleeding, infection, pain, and bruising), benefits, alternatives and expected outcomes were discussed with the patient, and obtained verbal consent from pt. Time out called. Patient identified, procedure verified, site identified and verified. Patient and staff present in agreement. Area prepped with alcohol and anesthetized using lidocaine. Shave of lesion performed followed by curettage for cure. 20% AlCl and bandaging applied. Specimen sent to pathology. Patient instructed in routine post-op care and given wound care pamphlet. Total size 2.2cm Patient with caregiver today. Follow-up: pending path results, otherwise as scheduled 09/2024 for skin check Photos taken, patient consented to photos taken. Contact patient at home with results: [phone] May leave message Applicable photos (if any) and chart reviewed by Dr. Rajiv Panda. The patient was encouraged to contact me with any further questions or concerns. Marilyn Ozuna PA-C 05/14/24 documented in this encounter Nursing Notes * Erica Miner LPN - 05/14/2024 10:14 AM EDT Chief Complaint Patient presents with Re-Check HX SCCIS left neck - now has a crust on area and she is concerned. 09/03/2023 (in office), Visit date not found (telemedicine) Caregiver present in room. documented in this encounter Plan of Treatment Upcoming Encounters Date Type Department Care Team (Late st Contact Info) Description 05/20/2024 8:20 AM EDT Laboratory Lab Mobile Phlebotomy [facility] [address] [place] [address] Gl, [facility] Mobile Home Draw [address] [place] [address] 05/20/2024 8:50 AM EDT Home Visit [facility], [facility] [address] [place] [address] Kayla Thompson CRNP [address] [place] [address] Scarlett Nath, [employer] Occupational Therapist [address] [place] [address] 05/21/2024 6:00 AM EDT Anticoagulation [facility], Derrek [address] [place] [address] [facility], [facility] [address] [place] [address] 05/28/2024 1:00 PM EDT Scheduled Telephone [facility], [facility] [address] [facility] [place] [address] Cyndie Hilton, LATIA [address] [facility] [place] [address] 06/01/2024 5:30 PM EDT Home Visit [facility], [facility] [address] [place] [address] Allison Young RN [address] [place] [address] 06/03/2024 12:50 PM EDT Home Visit [facility], [facility] [address] [place] [address] Kayla Thompson CRNP [address] [place] [address] Scarlett Nath, [employer] Occupational Therapist [address] [place] [address] 06/17/2024 11:00 AM EST Telemedicine Hematology/Oncology, [facility] [address] [place] [address] Billy Basurto MD [address] [place] [address] 06/17/2024 2:30 PM EST Home Visit [facility], [facility] [address] [facility] [place] [address] Kayla Thompson CRNP [address] [facility] [place] [address] Scarlett Nath [employer] Occupational Therapist [address] [place] [address] 07/10/2024 1:40 PM EST Home Visit [facility], [facility] [address] [place] [address] Kayla Thompson CRNP [address] [place] [address] Zohaib Castillo [facility] Occupational Therapist [address] [facility], [place] [address] 07/14/2024 12:00 PM EST Office Visit Gastroenterology, [place] [facility] [address] [place] [phone] Rashida Jerome PA-C [address] [facility] [place] [address] 08/18/2024 3:30 PM EST Office Visit Otolaryngology, Francisco Polanco [address] [address] Hema Hercules PA-C [address] [address] 08/26/2024 5:40 PM EST Office Visit Family [facility], [place] [address] [phone] Amor Pate MD [address] [facility] [place] [address] 09/10/2024 12:50 PM EST Office Visit Dermatology, Adwoa GreenFrancisco [address] [place] [address] [place] [address] [address] Marilyn Ozuna PA-C [address] [address] 11/03/2024 3:00 PM EDT Office Visit Cardiology, [place] [address] [place] [address] Stephanie Ramos PA-C [address] [place] [address] 12/31/2024 1:00 PM EDT Cardiac Studies Cardiology, [place] [address] [place] [address] [facility] [address] [place] [address] 02/04/2025 12:00 PM EDT Home Visit [facility] [address] [place] [address] Carol Mathew PA-C [address] [place] [address] Pending Results Name Type Priority Associated Diagnoses Date /Time SURGICAL PATHOLOGY Pathology Routine Neoplasm of uncertain behavior of skin 05/14/2024 10:44 AM EDT Scheduled Procedures Name Priority Associated Diagnoses [...] Additional history exists CKD PHOS USE SMARTSET 66451 08/22/202408/05, 08/20/2023, 11/07/2022, Additional history exists HbA1c 10/14/2024 04/16/2024, 1212/2022, 04/01/2023 Albumin/Creatinine Ratio 12/05/2024 12/06/2023, 03/06 Adult Wellness Visit 02/03/2025 02/04/2024, 02/29/20 23 Depression Screening 02/03/2025 02/04/2024, 12/10/19 24 DXA Scan 04/22/2025 04/22/2023, 04/05, 12/25/2018, Additional history exists CKD HGB USE SMARTSET 17314 05/06/202505/06, 05/06/2024, 03/02/2024, Additional history exists Pneumococcal Vaccine: 65+ Years Completed 02/01/2016, 10/27/2002 VITAMIN D LEVEL ONCE IN A LIFETIME-USE SMARTSET# 51659 Completed 04/16/2024, 09/16/2023, 10/20/2019, Additional history exists [...] this encounter Medical Devices Implanted Type Area Coloring Room Man Device Identifier Shelf Expiration Date Model / Serial / Lot Implant System, Trim-It Drill Pin [id number]" X 4" Implanted:Qty: 1 on 10/10/2017 by Sydney Castelan DPM at OR [facility] Right: Toe 04/04/2019 [id number] / / [id number] Medtronic Attesta Surescan Pacemaker Implanted:Qty: 1 on 06/09/2020 by Chanel Lin DO at OR [facility] Left: Chest 08/01/2021 ATSR01 / [id number] / Nail [id number] Left [id number] - [id number] Implanted:Qty: 1 on 01/20/2021 by Alli Townsend MD at OR [facility] Left: Hip MILAN : TRAUMA 12/03/2023 3525-034 [id number] / / [id number] Screw Lag 10.5x95mm - [id number] Implanted:Qty: 1 on 01/20/2021 by Alli Townsend MD at OR [facility] Left: Hip MILAN : TRAUMA 11/02/2025 [id number] / / [id number] Screw T2 Alpha Lock 5x47.5mm - [id number] Implanted:Qty: 1 on 01/20/2021 by Alli Townsend MD at OR [facility] Left: Hip MILAN : TRAUMA 05/04/2029 [id number] / / [id number] documented as of this encounter Procedures Procedure Name Priority Date/Time Associated Diagnosis Comments DERM EXAM - DERM (IMAGES ONLY, NO REPORT) Routine 05/14/2024 10:44 AM EDT Neoplasm of uncertain behavior of skin documented in this encounter Results * DERM EXAM - DERM (IMAGES ONLY, NO REPORT) (05/14/2024 10:44 AM EDT) Narrative Scheduling, Silent - 05/14/2024 10:44 AM EDT This is an imaging study not interpreted or resulted by a [facility] or [facility] contracted radiologist. Marilyn Ozuna PA-C RADIOLOGY ([facility]) documented in this encounter Visit Diagnoses Diagnosis Neoplasm of uncertain behavior of skin- Primary documented in this encounter Advance Directives Documents on File Type Date Recorded Patient Kai Whakaruruhau Expl anation POLST 07/15/2023 [place] [facility] FOR LIFE-SUSTAINING TREATMENT * Full Code [...] First Alternate Health Care Agent Care Teams Customer Program Specialist Relationship Specialty Start Date End Date Amor Pate MD [address] [phone] PCP - General Family Medicine 12/06/22 documented as of this encounter
--- OUTSIDE RECORDS SUMMARY | 2024-08-18 16:17 | External Medical Summary | Summary of Care ---
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 Encounter Details Date Type Department Care Team (Late st Contact Info) Description 05/14/2024 10:20 AM EDT Office Visit Dermatology, [place] Caballero [address] [facility] [address] [address] Marilyn Ozuna PA-C [address] [place] [address] Neoplasm of uncertain behavior of skin* Allergies [...] in the morning. 30 Tablet 07/14/2023 Active Smzkusn-Khlsyvnnn-Uc tamin D ER 600-40-500 MG-MG-UNIT Tablet Extended [...] morning. 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 Never true 05/07/20 24 Within the past 12 months, t [...] No 05/07/2024 Does the household have a [facility] source of income? (Household - for ages [...] mouth in the morning. 30 Tablet 0 Wcqjtmd-Aixdgsqit-Ugkghtt D ER 600-40-500 MG-MG-UNIT Tablet Extended Release [...] in the morning. 45 Tablet 3 Nystatin 980879 UNIT/GM External Cream Apply topically to affected [...] prepped with alcohol and anesthetized using lidocaine. Shaveof lesion performed followed by curettage for cure. 20% AlCl and bandaging applied. Specimen sent to pathology. Patient instructed in routine post-op care and given wound care pamphlet. Total size 2.2cm Patient with caregiver today. Follow-up: pending path results, otherwise as scheduled 09/2024 for skin check Photos taken, patient consented to photos taken. Contact patient at home with results: [phone] May leave message Applicable photos (if any) and chart reviewed by Dr. Rajiv Panda. The patient was encouraged to contact me with any further questions or concerns. Marilyn Ozuna PA-C 05/14/24 * Vitor Panda MD - 05/14/2024 10:20 AM EDT I have reviewed the relevant notes and photographs taken by Marilyn Ozuna PA-C. I have reviewed and agree with the assessment and plan. Vitor Panda MD documented in this encounter Nursing Notes * [...] 8:20 AM EDT Laboratory Lab Mobile Phlebotomy [facility] [address] [place] [address] [facility], [facility] Mobile Home Draw [address] [place] [address] 05/20/2024 8:50 AM EDT Home Visit [facility]inger at [facility] [address] [facility] [place] [address] Kayla Thompson CRNP [address] [facility] [place] [address] Scarlett Nath, Community Health Desizing Machine Operator Head End [address] [place] [address] 05/21/2024 6:00 AM EDT Anticoagulation Centralized Clinical Pharmacy Services, [address] [place] [address] Ccps, [address] [place] [address] 05/28/2024 1:00 PM EDT Scheduled Telephone [facility], [facility] [address] [place] [address] Cyndie Hilton, RDN [address] [place] [address] 06/01/2024 5:30 PM EDT [facility] Visit [facility], [facility] [address] [place] [place] [address] Allison Young RN 132 [facility] [place] [address] 06/03/2024 12:50 PM EDT [facility] Visit [facility], [facility] [place] [address] Kayla Thompson CRNP [address] [place] [address] Scarlett Nath, Community Health Desizing Machine Operator Head End [address] [place] [address] 06/17/2024 11:00 AM EST Telemedicine Hematology/Oncology, [address] [address] Billy Basurto MD [address] [place] [phone] 06/17/2024 2:30 PM EST [facility] Visit [facility], [facility] [place] [address] Kayla Thompson CRNP [address] [place] [address] Scarlett Nath, [facility] Health Desizing Machine Operator Head End [address] [place] [address] 07/10/2024 1:40 PM EST Home Visit [facility] [address] [place] [address] Kayla Thompson CRNP 132 [place] [address] Zohaib Castillo [facility] Health Desizing Machine Operator Head End [address] [place] [address] 07/14/2024 12:00 PM EST Office Visit Gastroenterology, [facility] [place] [address] [place] [address] Rashida Jerome PA-C [address] [facility] [place] [address] 08/18/2024 3:30 PM EST Office Visit Otolaryngology, [place] [address] [address] Hema Hercules PA-C [address] [place] [address] 08/26/2024 5:40 PM EST Office Visit Family [facility], [place] [facility] [place] [phone] Amor Pate MD [facility] [place] [address] 09/10/2024 12:50 PM EST Office Visit Dermatology, [place] Caballero [address] [place] [address] [place] [address] Marilyn Ozuna PA-C [address] [place] [address] 11/03/2024 3:00 PM EDT Office Visit Cardiology, [place] 400 [facility] [place] [address] Stephanie Ramos PA-C [address] [place] [address] 12/31/2024 1:00 PM EDT Cardiac Studies Cardiology, [place] [facility] [place] [address] [place], [facility] 400 [facility] [place] [address] 02/04/2025 12:00 PM EDT Home Visit Care at Home [address] [place] [address] Carol Mathew PA-C [address] [place] [address] Pending Results Name Type Priority Associated Diagnoses Date /Time SURGICAL PATHOLOGY Pathology Routine Neoplasm of uncertain behavior of skin 05/14/2024 10:44 AM EDT Scheduled Procedures Name Priority Associated Diagnoses Date/Ti wi ESOPHAGOGASTRODUODENOSCOPY ( EGD), FLEXIBLE, TRANSORAL, ENDOSCOPIC ULTRASOUND [...] Additional history exists CKD PHOS USE SMARTSET 19193 08/22/202408/05, 08/20/2023, 11/07/2022, Additional history exists HbA1c 10/14/2024 04/16/2024, 1212/2022, 04/01/2023 Albumin/Creatinine Ratio 12/05/2024 12/06/2023, 08/03/2023 Adult Wellness Visit 02/03/2025 02/04/2024, 02/29/20 23 Depression Screening 02/03/2025 02/04/2024, 12/10/19 24 DXA Scan 04/22/2025 04/22/2023, 04/05, 12/25/2018, Additional history exists CKD HGB USE SMARTSET 15640 05/06/202505/06, 05/06/2024, 03/02/2024, Additional history exists Pneumococcal Vaccine: 65+ Years Completed 02/01/2016, 10/27/2002 VITAMIN D LEVEL ONCE IN A LIFETIME-USE SMARTSET# 70560 Completed 04/16/2024, 09/16/2023, 10/20/2019, Additional history exists [...] this encounter Medical Devices Implanted Type Area Machine Long Goods Helper Device Identifier Shelf Expiration Date Model / Serial / Lot Implant System, Trim-It Drill Pin [id number]" X 4" Implanted:Qty: 1 on 10/10/2017 by Sydney Castelan DPM at OR [facility] Right: Toe 04/04/2019 [id number] / / [id number] Medtronic Attesta Surescan Pacemaker Implanted:Qty: 1 on 06/09/2020 by Chanel Lin DO at OR [facility] Left: Chest 08/01/2021 ATSR01 / [id number] / Nail [id number] Left [id number] - [id number] Implanted:Qty: 1 on 01/20/2021 by Alli Townsend MD at OR [facility] Left: Hip MILAN : TRAUMA 12/03/2023 3525-034 0S / / [id number] Screw Lag 10.5x95mm - [id number] Implanted:Qty: 1 on 01/20/2021 by Alli Townsend MD at OR [facility] Left: Hip MILAN : TRAUMA 11/02/2025 3060-009 5S / / [id number] Screw T2 Alpha Lock 5x47.5mm - [id number] Implanted:Qty: 1 on 01/20/2021 by Alli Townsend MD at OR [facility] Left: Hip MILAN : TRAUMA 05/04/2029 2360-504 7S / / [id number] documented as of this encounter Procedures Procedure [...] study not interpreted or resulted by a [place] or [place] contracted radiologist. Marilyn Ozuna PA-C RADIOLOGY (RAD GENERAL) documented in this encounter Visit Diagnoses Diagnosis Neoplasm of uncertain behavior of skin- Primary documented in this encounter Advance Directives Documents on File Type Date Recorded Patient Production Operations Inspector Expl anation POLST 07/15/2023 [place] OR [facility] FOR LIFE-SUSTAINING TREATMENT * Full Code [...] First Alternate Health Care Agent Care Teams Outpatient Program Coordinator Relationship Specialty Start Date End Date Amor Pate MD [address] [address] PCP - General Family Medicine 12/06/22 documented as of this encounter
--- OUTSIDE RECORDS SUMMARY | 2024-08-18 16:17 | External Medical Summary | Summary of Care ---
Author Name Unknown Organization [facility] Address [address] [place] [address] Phone [phone] Care Team Providers Care Digital Marketing Manager Name Role Phone Amor Pate MD Primary Care Provider [phone] Encounter Details Date Type Department Care Team (Late st Contact Info) Description 05/20/2024 8:50 AM EDT Home Visit [facility], [facility] [address] [place] [address] Kayla Thompson CRNP [address] [place] [address] Scarlett Nath Community [facility] Commissioner Of Relocation Services [address] [place] [address] Pressure injury of left buttock, stage 2 (HCC)* Allergies No known active allergiesdocumented as of this encounter (statuses as of 05/20/2024) Medications Medication Sig Dispensed Refills Start Date [...] in the morning. 30 Tablet 07/14/2023 Active Mublgfb-Zoyrxdgzx-Oh tamin D ER 600-40-500 MG-MG-UNIT Tablet Extended [...] morning. 45 Tablet 3 12/25/2023 Active Nystatin 682147 UNIT/GM External CreamIndications:Can didal intertrigo Apply topically [...] as of this encounter (statuses as of 05/20/2024) Active Problems Problem Noted Date Diagnosed Date [...] multicystic lesion of the pancreas CEA, FLUID 76348.0 ng/mL Final COMMENT Final The reference range [...] 06/18/2013 Last Assessment & Plan: S/p pacemaker FPC current use of anticoagulant therapy 0 08/28/2010 [...] patient does not have a Power of School Library Media Specialist or Advanced Directives in place at [...] as of this encounter (statuses as of 05/20/2024) Resolved Problems Problem Noted Date Diagnosed Date [...] Elective replacement indicated for pacemaker 0 02/04/2024 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 (Household - for ages [...] Sign Reading Time Taken Comments Blood Pressure 138/84 05/20/2024 9:05 AM EDT Pulse 64 05/20/2024 9:05 AM EDT Temperature 36.7 C (98.1 F) 05/20/2024 9:05 AM ED T Respiratory Rate 16 05/20/2024 9:05 AM EDT Oxygen Saturation 96% 05/20/2024 9:05 AM EDT Inhaled Oxygen Concentration - - Weight - [...] as of this encounter Progress Notes * Kayla Thompson CRNP - 05/20/2024 9:15 AM EDT Images from the original note were not included. [facility] Problem Oriented Charting Provider Visit Date: 05/20/2024 Time: 9:15 AM Assessment and Plan #1 Pressure injury of left buttock, stage 2 (HCC) (Primary) Assessment & Plan: Improved. Caregivers are applying duoderm or similar. Again discussed importance of offloading pressure. Additional Medical Decision Making: Pressure ulcer is much improved-see photos. RN is scheduled to see 06/01. Telemedicine visits scheduled 06/17 and we will continue to follow every 2 weeks until the area is healed. This note was verbally transcribed via dictation system and spelling/word errors can occur. Please contact the undersigned for any clarification/correction regarding dictated information if needed. Scheduled appointments in the next 60 days: Future Appointments-next 60 days Date/Time Provider Specialty Dept Phone 05/21/2024 6:00 AM [facility] [phone] 05/28/2024 1:00 PM Cyndie Hilton RDN [facility] [phone] 06/01/2024 5:30 PM Allison Young RN [facility] [phone] 06/03/2024 12:50 PM Scarlett Nath [facility] Health Commissioner Of Relocation Services; Kayla Thompson CRNP [facility] [phone] 06/17/2024 11:00 AM Billy Basurto MD Hematology Oncology [phone] 06/17/2024 2:30 PM Scarlett Nath [facility] Health Commissioner Of Relocation Services; Kayla Thompson CRNP [facility] [phone] 07/10/2024 1:40 PM Zohaib Castillo [facility] Health Commissioner Of Relocation Services; Kayla Thompson CRNP [facility] [phone] 07/14/2024 12:00 PM (Arrive by 11:45 AM) Rashida Jerome PA-C Gastroenterology [phone] 08/18/2024 3:30 PM (Arrive by 3:15 PM) Hema Hercules PA-C Otolaryngology [phone] 08/26/2024 5:40 PM (Arrive by 5:25 PM) Amor Pate MD Family Medicine [phone] 09/10/2024 12:50 PM (Arrive by 12:35 PM) Marilyn Ozuna PA-C Dermatology [phone] 11/03/2024 3:00 PM (Arrive by 2:45 PM) Stephanie Ramos PA-C Cardiology [phone] 12/31/2024 1:00 PM (Arrive by 12:45 PM) [place], Pacer [facility] [phone] 02/04/2025 12:00 PM Carol Mathew PA-C Family Medicine [phone] A total of 10 minutes was spent face to face (via video-based telemedicine if designated as a telemedicine visit) Subjective Subjective Is this a Telemedicine Visit? Yes, Patient location: HOME. I was not in a hospital or clinic location. After connecting through televideo, patient was verified with two unique identifiers. Patient (or authorized legal account service representative) was then informed that this was a Telemedicine visit and being conducted confidentially over secure lines. Methods to assure confidentiality were taken. Patient acknowledged consent and understanding of privacy and security of the Telemedicine visit. The patient agreed to participate. Reason For [facility] Visit: Follow-Up Current Concerns: Zulma Villar is a 88 year old [facility]. Today's concerns are: None. Denies SOB, chest pain. She is trying to reposition frequently to offload pressure. She is sleeping in her hospital bed at night. Additional I have reviewed the following results: Current Outpatient Medications Medication Sig Dispense Refill Acetaminophen 325 MG Oral Tablet (Tylenol) Take 2 Tablets by mouth every 6 hours. 30 Tablet 0 Atorvastatin Calcium 20 MG Oral Tablet (Lipitor) Take 1 Tablet by mouth daily. 90 Tablet 3 Biotin 1000 MCG Oral Tablet Take 1 Tablet by mouth in the morning. 30 Tablet 0 Twzrhqk-Onnptwgpy-Cczqizi D ER 600-40-500 MG-MG-UNIT Tablet Extended Release [...] in the morning. 30 Tablet 0 Nystatin 915427 UNIT/GM External Cream Apply topically to affected [...] mouth in the morning. 30 Tablet 5 Sodium Hyaluronate 60 MG/3ML [...] medications for this visit. Objective Objective Vitals: 05/20/24 0905 Temp: 36.7 C (98.1 F) Pulse: 64 Resp: 16 SpO2: 96% BP: 138/84 Last Weights: Wt Readings from Last 3 Encounters: 05/05/24 67.1 kg (148 lb) 02/12/24 67.1 kg (148 lb) 12/10/23 68.1 kg (150 lb 3.2 oz) Last BPs: BP Readings from Last 4 Encounters: 05/20/24 138/84 05/19/24 122/74 05/07/24 130/70 05/05/24 102/60 Physical Exam Cardiovascular: Rate and Rhythm: Normal rate. Pulmonary: Effort: Pulmonary effort is normal. Skin: Coloration: Skin is not pale. Neurological: General: No focal deficit present. Mental Status: She is alert. Psychiatric: Mood and Affect: Mood normal. Behavior: Behavior normal. 05/1905/07/24 MAGDALENA Mendoza 9:15 AM * Scarlett Nath Community [facility] Commissioner Of Relocation Services - 05/20/2024 9:07 AM EDT Telemedicine visit: Yes Patient location: HOME. I was not in a hospital or clinic location. After connecting through televideo, patient was verified with two unique identifiers. Patient (or authorized legal account service representative) was then informed that this was a Telemedicine visit and being conducted confidentially over secure lines. Methods to assure confidentiality were taken. Patient acknowledged consent and understanding of privacy and security of the Telemedicine visit. The patient agreed to participate. Community [facility] Commissioner Of Relocation Services (KARI) documentation: CH[facility] facilitated telemed BP 138/84 (BP Site: Left Arm, BP Position: Sitting, BP Cuff Size: Regular) | Pulse 64 | Temp 36.7 C (98.1 F) | Resp 16 | SpO2 96% Caregiver did not come today--called this morning to cancel d/t sick child; no-call/no-show yesterday; advised to call [facility] if caregivers continue to be unreliable Had home visit yesterday w/ REGINA Leavitt CM; states pressure ulcer is healing well Feels BP is slightly elevated compared to baseline, but has not yet taken AM meds; pt took meds during visit Denies needs/concerns Aware to call [facility] [phone]# Electronically signed by Scarlett Nath Community [facility] Commissioner Of Relocation Services at 05/20/2024 11:01 AM EDT documented in this encounter Miscellaneous Notes * Assessment & Plan Note - Kayla Thompson CRNP - 05/20/2024 10:15 AM EDT Associated Problem(s): Pressure injury of left buttock, stage 2 (HCC) Improved. Caregivers are applying duoderm or similar. Again discussed importance of offloading pressure. documented in this encounter Plan of Treatment Upcoming Encounters Date Type Department Care Team (Late st Contact Info) Description 05/21/2024 6:00 AM EDT Anticoagulation Centralized Clinical Pharmacy Services, [address] [place] [address] [facility], [address] [place] [address] 05/28/2024 1:00 PM EDT Scheduled Telephone [facility], [facility] [address] [place] [address] Cyndie Hilton, RDN [address] [place] [address] 06/01/2024 5:30 PM EDT [facility] Visit [facility], [facility] [address] [place] [address] Allison Young, RN [address] [place] [address] 06/03/2024 12:50 PM EDT Home Visit [facility], [facility] [address] [place] [address] Kayla Thompson CRNP 132 [place] [address] Scarlett Nath, [facility] Health Commissioner Of Relocation Services [facility] [place] [address] 06/17/2024 11:00 AM EST Telemedicine Hematology/Oncology, [facility] [address] [place] [address] Billy Basurto MD [address] [place] [phone] 06/17/2024 2:30 PM EST [facility] Visit [facility], [facility] 132 [place] [address] Kayla Thompson CRNP 132 [place] [address] Scarlett Nath, [facility] Health Commissioner Of Relocation Services [address] [place] [address] 07/10/2024 1:40 PM EST [facility] Visit [facility] [place], [facility] 132 [place] [address] Kayla Thompson CRNP 132 [place] [address] Zohaib Castillo [facility] Health Commissioner Of Relocation Services [address] [place] [address] 07/14/2024 12:00 PM EST Office Visit Gastroenterology, [facility] [address] [place] [phone] Rashida Jerome PA-C [address] [place] [address] 08/18/2024 3:30 PM EST Office Visit Otolaryngology, [address] [place] [address] [place] [address] Hema Hercules PA-C [address] [place] [address] 08/26/2024 5:40 PM EST Office Visit [facility], [place] [address] [facility] [place] [phone] Amor Pate MD 21 [facility] [address] 09/10/2024 12:50 PM EST Office Visit Dermatology, [address] [place] [address] [place] [address] [place] [address] Marilyn Ozuna PA-C [address] [place] [address] 11/03/2024 3:00 PM EDT Office Visit Cardiology, [place] [address] [place] [address] Stephanie Ramos PA-C 400 [facility] [place] [address] 12/31/2024 1:00 PM EDT Cardiac Studies Cardiology, [place] [address] [place] [address] [facility] 400 [facility] [place] [address] 02/04/2025 12:00 PM EDT Home Visit Care at Home [address] [place], [place] [phone] Carol Mathew PA-C [address] [place], [place] [phone] Scheduled Procedures Name Priority Associated Diagnoses Date/Ti [...] Additional history exists CKD PHOS USE SMARTSET 51070 08/22/202408/05, 08/20/2023, 11/07/2022, Additional history exists HbA1c 10/14/2024 04/16/2024, 1212/2022, 04/01/2023 Albumin/Creatinine Ratio 12/05/2024 12/06/2023, 03/06 Adult Wellness Visit 02/03/2025 02/04/2024, 02/29/20 23 Depression Screening 02/03/2025 02/04/2024, 12/10/19 24 DXA Scan 04/22/2025 04/22/2023, 04/05, 12/25/2018, Additional history exists CKD HGB USE SMARTSET 21109 05/06/202505/06, 05/06/2024, 03/02/2024, Additional history exists Pneumococcal Vaccine: 65+ Years Completed 02/01/2016, 10/27/2002 VITAMIN D LEVEL ONCE IN A LIFETIME-USE SMARTSET# 71389 Completed 04/16/2024, 09/16/2023, 10/20/2019, Additional history exists [...] this encounter Medical Devices Implanted Type Area Steam Cleaner Device Identifier Shelf Expiration Date Model / Serial / Lot Implant System, Trim-It Drill Pin [id number]" X 4" Implanted:Qty: 1 on 10/10/2017 by Sydney Castelan DPM at OR [facility] Right: Toe 04/04/2019 AR-[id number] / / [id number] Medtronic Attesta Surescan Pacemaker Implanted:Qty: 1 on 06/09/2020 by Chanel Lin DO at OR [facility] Left: Chest 08/01/2021 ATSR01 / [id number] / Nail [id number] Left [id number] - [id number] Implanted:Qty: 1 on 01/20/2021 by Alli Townsend MD at OR [facility] Left: Hip MILAN : TRAUMA 12/03/2023 3525-034 0S / / [id number] Screw Lag 10.5x95mm - [id number] Implanted:Qty: 1 on 01/20/2021 by Alli Townsend MD at OR [facility] Left: Hip MILAN : TRAUMA 11/02/2025 3060-009 5S / / [id number] Screw T2 Alpha Lock 5x47.5mm - [id number] Implanted:Qty: 1 on 01/20/2021 by Alli Townsend MD at OR [facility] Left: Hip MILAN : TRAUMA 05/04/2029 2360-504 7S / / [id number] documented as of this encounter Visit Diagnoses Diagnosis Pressure injury of left buttock, stage 2 (HCC)- Primary documented in this encounter Advance Directives Documents on File Type Date Recorded Patient Minilab Operator Expl anation POLST 07/15/2023 [place] OR [facility] FOR [...] First Alternate Health Care Agent Care Teams Digital Marketing Manager Relationship Specialty Start Date End Date Amor Pate MD [address] [place] [address] PCP - General Family Medicine 12/06/22 documented as of this encounter
--- OUTSIDE RECORDS SUMMARY | 2024-08-18 16:17 | External Medical Summary | Summary of Care ---
Author Name Unknown Organization [facility] Address [address] [place] [address] Phone [phone] Care Team Providers Care Worm Farmer Name Role Phone Amor Pate MD Primary Care Provider [phone] Encounter Details Date Type Department Care Team (Latest Contact Info) Description 05/14/2024 10:44 AM EDT - 05/14/2024 11:59 PM EDT Hospital Encounter Radiology Film File [address] [place] [address] Arrived Discharge Disposition: Home - Self Care Allergies No known active allergiesdocumented as of this encounter (statuses as of 05/15/2024) Medications Medication Sig Dispensed Refills Start Date [...] in the morning. 30 Tablet 07/14/2023 Active Ajtlhnn-Ldlcxzhvf-Nj tamin D ER 600-40-500 MG-MG-UNIT Tablet Extended [...] morning. 45 Tablet 3 12/25/2023 Active Nystatin 744452 UNIT/GM External CreamIndications:Can didal intertrigo Apply topically [...] as of this encounter (statuses as of 05/15/2024) Active Problems Problem Noted Date Diagnosed Date [...] Regimen: Beta Tika Therapy: Metoprolol Succinate (ER) AJCOB Inhibitor/ARB Therapy: No JACOB/ARB/ARNI secondary to: was [...] multicystic lesion of the pancreas CEA, FLUID 29589.0 ng/mL Final COMMENT Final The reference range [...] 06/18/2013 Last Assessment & Plan: S/p pacemaker alf current use of anticoagulant therapy 0 08/28/2010 [...] patient does not have a Power of Practical Nursing Teacher or Advanced Directives in place at this [...] as of this encounter (statuses as of 05/15/2024) Resolved Problems Problem Noted Date Diagnosed Date [...] as of this encounter (statuses as of 05/15/2024) Immunizations Name Administration Dates Next Due COVID-19 [...] 8:20 AM EDT Laboratory Lab Mobile Phlebotomy [facility] [address] [facility] [place] [address] [facility] Mobile Home Draw 400 [place] [address] 05/20/2024 8:50 AM EDT [facility] [address] [place] [address] Kayla Thompson CRNP [address] [place] [address] Scarlett Nath, Community Health [employer] Teamster [address] [place] [address] 05/21/2024 6:00 AM EDT Anticoagulation Centralized Clinical Pharmacy Services, Derrek Denton [address] [place] [address] [place] [address] Ccps, [address] [place] [address] 05/28/2024 1:00 PM EDT Scheduled Telephone [facility], [facility] [address] [facility] [place] [address] Cyndie Hilton, RDN [address] [place] [address] 06/01/2024 5:30 PM EDT [facility] Visit [facility], [facility] [address] [facility] [place] [address] Allison Young RN 132 [place] [address] 06/03/2024 12:50 PM EDT [facility], [facility] [address] Kayla Thompson CRNP 132 [place] [address] Scarlett Nath, Community [facility] [employer] [address] [place] [address] 06/17/2024 11:00 AM EST Telemedicine Hematology/Oncology, [facility] [address] [facility] [address] Billy Basurto MD 400 [place] [address] 06/17/2024 2:30 PM EST [facility] Visit [facility], [facility] [address] [facility] [place] [address] Kayla Thompson CRNP [address] [place] [address] Scarlett Nath, Community [facility] [employer] [address] [place] [address] 07/10/2024 1:40 PM EST Home Visit [facility] [address] [place] [address] Kayla Thompson CRNP [address] [place] [address] Zohaib Castillo, [facility] Health [employer]ster [address] [place] [address] 07/14/2024 12:00 PM EST Office Visit Gastroenterology, [facility] [address] [place] [address] Rashida Jerome PA-C [address] [place] [address] 08/18/2024 3:30 PM EST Office Visit [facility] [place] [address] [place] [address] Hema Hercules PA-C [address] [place] [address] 08/26/2024 5:40 PM EST Office Visit [facility] [place] [address] [place] [phone] Amor Pate MD [address] [place] [address] 09/10/2024 12:50 PM EST Office Visit Dermatology, Francisco Caballero [address] [place] [address] [place] [address] Marilyn Ozuna PA-C [address] [place] [address] 11/03/2024 3:00 PM EDT Office Visit Cardiology, [place] [address] [facility] [place] [address] Stephanie Ramos PA-C [address] [facility] [place] [address] 12/31/2024 1:00 PM EDT Cardiac Studies Cardiology, [place] [address] [facility] [place] [address] [facility] [address] [facility] [place] [address] 02/04/2025 12:00 PM EDT Home Visit [facility] at Home [address] [place] [address] Carol Mathew PA-C [address] [place], [place] [id number] Scheduled Procedures Name Priority Associated Diagnoses Date/Ti [...] Additional history exists CKD PHOS USE SMARTSET 06313 08/22/202408/05, 08/20/2023, 11/07/2022, Additional history exists HbA1c 10/14/2024 04/16/2024, 12/2022, 04/01/2023 Albumin/Creatinine Ratio 12/05/2024 12/06/2023, 03/06 Adult Wellness Visit 02/03/2025 02/04/2024, 02/29/20 23 Depression Screening 02/03/2025 02/04/2024, 12/10/19 24 DXA Scan 04/22/2025 04/22/2023, 04/05, 12/25/2018, Additional history exists CKD HGB USE SMARTSET 43039 05/06/202505/06, 05/06/2024, 03/02/2024, Additional history exists Pneumococcal Vaccine: 65+ Years Completed 02/01/2016, 10/27/2002 VITAMIN D LEVEL ONCE IN A LIFETIME-USE SMARTSET# 50411 Completed 04/16/2024, 09/16/2023, 10/20/2019, Additional history exists [...] this encounter Medical Devices Implanted Type Area Gauger Delivery Device Identifier Shelf Expiration Date Model / Serial / Lot Implant System, Trim-It Drill Pin [id number]" X 4" Implanted:Qty: 1 on 10/10/2017 by Sydney Castelan DPM at OR [facility] Right: Toe 04/04/2019 AR-[id number] / / [id number] Medtronic Attesta Surescan Pacemaker Implanted:Qty: 1 on 06/09/2020 by Chanel Lin DO at OR [facility] Left: Chest 08/01/2021 ATSR01 / [id number] / Nail [id number] Left [id number] - [id number] Implanted:Qty: 1 on 01/20/2021 by Alli Townsend MD at OR [facility] Left: Hip MILAN : TRAUMA 12/03/2023 3525-034 0S / / [id number] Screw Lag 10.5x95mm - [id number] Implanted:Qty: 1 on 01/20/2021 by Alli Townsend MD at OR [facility] Left: Hip MILAN : TRAUMA 11/02/2025 3060-009 5S / / [id number] Screw T2 Alpha Lock 5x47.5mm - [id number] Implanted:Qty: 1 on 01/20/2021 by Alli Townsend MD at OR [facility] Left: Hip MILAN : TRAUMA 05/04/2029 [id number] 7S / / [id number] documented as of this encounter Procedures Procedure [...] study not interpreted or resulted by a [facility] radiologist. Marilyn Ozuna PA-C RADIOLOGY (RAD GENERAL) documented in this encounter Advance Directives Documents on File Type Date Recorded Patient Factory Representative Expl anation POLST 07/15/2023 [place] OR [facility] FOR LIFE-SUSTAINING [...] First Alternate Health Care Agent Care Teams Worm Farmer Relationship Specialty Start Date End Date Amor Pate MD [address] [place] [address] PCP - General Family Medicine 12/06/22 documented as of this encounter
--- OUTSIDE RECORDS SUMMARY | 2024-08-18 16:17 | External Medical Summary ---
Author Name Unknown Address Unknown Organization K1F:LABORATORY [facility] - [address] [place] [address] Laboratory Report Ordering Provider Test Date Status ANDREW HOOVER 05/20/2024 09:22:00 Final Please draw PT/INR every 1-4 weeks or as requested by the [facility] Coumadin Clinic

Warfarin Therapy
INR: 2.0-3.0 conventional anticoagulation
INR: 2.5-3.5 high intensity anticoagulation Observation Date Value Abnormality Reference (Units ) Status PT 05/20/2024 09:22:00 26.5 Above high normal 11 .6-15.2 (seconds) Final INR 05/20/2024 09:22:00 2.4 Above high normal 0. 8-1.2 Final Performing Location LABORATORY [facility] - [address] [place] [address]
--- OUTSIDE RECORDS SUMMARY | 2024-08-18 16:17 | External Medical Summary | Summary of Care ---
Author Name Unknown Organization [facility] Address [address] [place] [address] Phone [phone] Care Team Providers Care Bobbin Dumper Name Role Phone Amor Pate MD Primary Care Provider [phone] Encounter Details Date Type Department Care Team (Late Contact Info) Description 05/19/2024 12:30 PM EDT [facility] [address] [place] [address] Allison Young, RN [address] [place] [address] Allergies No known active allergiesdocumented as of this encounter (statuses as of 05/19/2024) Medications Medication Sig Dispensed Refills Start Date [...] in the morning. 30 Tablet 07/14/2023 Active Zjsuegy-Fegvoqyfn-Ey tamin D ER 600-40-500 MG-MG-UNIT Tablet Extended [...] morning. 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 software qa analyst current use of anticoagulant therapy 0 08/28/2010 [...] patient does not have a Power of Structural Engineering Project Manager or Advanced Directives in place at [...] as of this encounter (statuses as of 05/19/2024) Resolved Problems Problem Noted Date Diagnosed Date [...] as of this encounter (statuses as of 05/19/2024) Immunizations Name Administration Dates Next Due COVID-19 mRNA, LNP-s, No Pre serve, 2-Dose Series (Pfizer) 10/26/2020,09/30/2020 Pneumococcal Conjugate Vacc, 13 Valent (Prevnar) 02/01/2016 Seasonal Influenza Vac., MDV , IM, 0.5 mL (Fluzone) 04/26/2014,04/23/2013,04/24/2012,2010,04/25/2010,05/24/2009,05/25/2008,1 ,06/22/2006 Seasonal Influenza, High Dos e, Trivalent, PF, IM (Fluzone HD) 05/05/2024 Seasonal Influenza, PF, 6 M & above, IM , (FluLaval or Fluzone) 05/10/2020,05/26/2019,05/19/2018,09/20/ 2017 Seasonal Influenza, Quadriva lent Hd (Fluzone Hd) [...] Sign Reading Time Taken Comments Blood Pressure 122/74 05/19/2024 11:06 AM EDT Pulse 60 05/19/2024 11:06 AM EDT Temperature 36.4 C (97.6 F) 05/19/2024 11:06 AM E DT Respiratory Rate 20 05/19/2024 11:06 AM EDT Oxygen Saturation 99% 05/19/2024 11:06 AM EDT Inhaled Oxygen Concentration - - [...] Progress Notes * Allison Young RN - 05/19/2024 12:30 PM EDT Images from the original note were not included. Current Concerns: Rosa Elena is an 88 year old female enrolled in Focused Case Management with [facility] being seenby RNCM for routine home visit today. PMHx includes: a-fib - on coumadin, tachy-nikki syndrome, ckd3, dm2, htn, chronic UTI, Stage 2 pressure ulcer Recent Encounters: 05/14/24 - Dermatology - follow up squamous cell cancer Rosa Elena states today is a good day for her. Feeling well rested. Denies pain. No cough or SOB. Pt has trace edema above sock line in the right lower leg. Using Lasix 20mg daily prn, last dose was 2 days ago. Pt has hx of frequent UTIs, denies symptoms at present. Reports appetite is good. She has been incorporating 1 or 2 Boost drinks daily to increase her protein. Evaluated pressure ulcer on left buttock. Ulcer is measuring 0.75cm x 0.75cm x 0.25cm, no tunneling. There is no drainage. Pt reports pain associated with ulcer has resolved. Wound cleansed and new dressing applied. Reviewed and reinforced wound care with caregiver. Pt is willing to go to wound clinic if the wound does not heal, but due to need to travel to [place] she would prefer not to make that trip. Wound showing improvement since previous RNCM eval. Pt reminded to contact [facility] at [phone] with any red flags, changes in condition, or concerns. Physical Exam: Physical Exam Constitutional: General: She is not in acute distress. Appearance: She is normal weight. She is ill-appearing. HENT: Head: Normocephalic. Nose: Rhinorrhea present. Mouth/Throat: Mouth: Mucous membranes are moist. Cardiovascular: Rate and Rhythm: Normal rate. Rhythm irregular. Pulses: Normal pulses. Pulmonary: Effort: Pulmonary effort is normal. Breath sounds: Normal breath sounds. Abdominal: General: Bowel sounds are normal. Palpations: Abdomen is soft. Musculoskeletal: Right lower leg: Right lower leg edema: Trace tibial edema. Skin: General: Skin is warm and dry. Capillary Refill: Capillary refill takes less than 2 seconds. Neurological: Mental Status: She is alert and oriented to person, place, and time. Psychiatric: Mood and Affect: Mood normal. Review of Systems: Review of Systems Constitutional: Positive for fatigue. Negative for chills and fever. HENT: Positive for hearing loss and rhinorrhea. Respiratory: Negative for cough and shortness of breath. Cardiovascular: Positive for leg swelling. Negative for chest pain and palpitations. Gastrointestinal: Negative for constipation and diarrhea. Genitourinary: Negative for difficulty urinating, frequency and urgency. Musculoskeletal: Positive for gait problem. Skin: Positive for wound (Left neck - healing wound from removal of SCC lesion; left buttock pressure wound). Neurological: Negative for dizziness, light-headedness and headaches. Psychiatric/Behavioral: Negative. Care Plan Goal Progress: Patient [...] Care gaps closed this contact:: Education;Home based procedures;Plan of Care (POC) (05/19/24 1202) Type of education: Clinical/disease (05/19/24 1202) Procedure performed: Wound care (05/19/24 1202) Type of plan of care (POC) care gap: Education and review of exacerbation plan (05/19/24 1202) documented in this encounter Plan of Treatment Upcoming Encounters Date Type Department Care Team (Late st Contact Info) Description 05/20/2024 8:20 AM EDT Laboratory Lab Mobile Phlebotomy [facility] [address] [place] [address] [place] [address] [facility] Mobile Home Draw [address] [place] [address] 05/20/2024 8:50 AM EDT Home Visit [facility] [address] [place] [address] Kayla Thompson CRNP [address] [place] [address] Scarlett Nath, Community Health Manager Printing [address] [place] [address] 05/21/2024 6:00 AM EDT Anticoagulation Centralized Clinical Pharmacy Services, [address] [place] [address] Ccps, [address] [place] [address] 05/28/2024 1:00 PM EDT Scheduled Telephone [facility], [facility] [address] [facility] [place] [address] Cyndie Hilton, RDN [address] [facility] [place] [address] 06/01/2024 5:30 PM EDT [facility] Visit [facility], [facility] 132 [facility] [place] [address] Allison Young RN 132 [place] [address] 06/03/2024 12:50 PM EDT Home Visit [facility], [facility] 132 [facility] [place] [address] Kayla Thompson CRNP 132 [place] [address] Scarlett Nath, Community Health Manager Printing [address] [place] [address] 06/17/2024 11:00 AM EST Telemedicine Hematology/Oncology, [address] [place] [id number] Billy Basurto MD [address] [facility] [address] 06/17/2024 2:30 PM EST Home Visit [facility], [address] [address] Kayla Thompson CRNP [address] [place] [address] Scarlett Nath, [facility] Health Manager Printing [address] [place] [address] 07/10/2024 1:40 PM EST Home Visit [facility], [facility] [address] [place] [address] Kayla Thompson CRNP [address] [place] [address] Zohaib Castillo, [facility] Health Manager Printing [address] [place] [address] 07/14/2024 12:00 PM EST Office Visit Gastroenterology, [facility] [address] [facility] [place] [address] Rashida Jerome PA-C [address] [place] [address] 08/18/2024 3:30 PM EST Office Visit Otolaryngology, [place] [address] [place] [address] Hema Hercules PA-C [address] [place] [address] 08/26/2024 5:40 PM EST Office Visit [facility], [place] [address] [place] [phone] Amor Pate MD [address] [place] [address] 09/10/2024 12:50 PM EST Office Visit Dermatology, [place] [address] [place] [address] [place] [address] Marilyn Ozuna PA-C [address] [place] [address] 11/03/2024 3:00 PM EDT Office Visit Cardiology, [place] [address] [facility] [place] [address] Stephanie Ramos PA-C [address] [facility] [place] [address] 12/31/2024 1:00 PM EDT Cardiac Studies Cardiology, [place] [address] [facility] [place] [address] [place] [address] [facility] [address] 02/04/2025 12:00 PM EDT Home Visit [facility] [address] [place], [place] [phone] Carol Mathew PA-C [address] [place], [place] [phone] Scheduled Procedures Name Priority Associated Diagnoses Date/Ti [...] Additional history exists CKD PHOS USE SMARTSET 07488 08/22/202408/05, 08/20/2023, 11/07/2022, Additional history exists HbA1c 10/14/2024 04/16/2024, 1212/2022, 04/01/2023 Albumin/Creatinine Ratio 12/05/2024 12/06/2023, 03/06 Adult Wellness Visit 02/03/2025 02/04/2024, 02/29/20 23 Depression Screening 02/03/2025 02/04/2024, 12/10/19 24 DXA Scan 04/22/2025 04/22/2023, 04/05, 12/25/2018, Additional history exists CKD HGB USE SMARTSET 88692 05/06/202505/06, 05/06/2024, 03/02/2024, Additional history exists Pneumococcal Vaccine: 65+ Years Completed 02/01/2016, 10/27/2002 VITAMIN D LEVEL ONCE IN A LIFETIME-USE SMARTSET# 92448 Completed 04/16/2024, 09/16/2023, 10/20/2019, Additional history exists [...] this encounter Medical Devices Implanted Type Area Public Aid Eligibility Assistant Device Identifier Shelf Expiration Date Model / Serial / Lot Implant System, Trim-It Drill Pin [id number]" X 4" Implanted:Qty: 1 on 10/10/2017 by Sydney Castelan DPM at OR [facility] Right: Toe 04/04/2019 AR-[id number] / / [id number] Medtronic Attesta Surescan Pacemaker Implanted:Qty: 1 on 06/09/2020 by Chanel Lin DO at OR [facility] Left: Chest 08/01/2021 ATSR01 / [id number] / Nail [id number] Left [id number] - [id number] Implanted:Qty: 1 on 01/20/2021 by Alli Townsend MD at OR [facility] Left: Hip MILAN : TRAUMA 12/03/2023 3525-034 0S / / [id number] Screw Lag 10.5x95mm - [id number] Implanted:Qty: 1 on 01/20/2021 by Alli Townsend MD at OR [facility] Left: Hip MILAN : TRAUMA 11/02/2025 3060-009 5S / / [id number] Screw T2 Alpha Lock 5x47.5mm - [id number] Implanted:Qty: 1 on 01/20/2021 by Alli Townsend MD at OR [facility] Left: Hip MILAN : TRAUMA 05/04/2029 2360-504 7S / / [id number] documented as of this encounter Advance Directives Documents on File Type Date Recorded Patient Interpretative Dancer Expl anation POLST 07/15/2023 [place] OR [facility] FOR LIFE-SUSTAINING TREATMENT * Full [...] First Alternate Health Care Agent Care Teams Bobbin Dumper Relationship Specialty Start Date End Date Amor Pate MD [address] [place] [phone] PCP - General Family Medicine 12/06/22 documented as of this encounter
--- OUTSIDE RECORDS SUMMARY | 2024-08-18 16:18 | External Medical Summary | Summary of Care ---
Author Name Unknown Organization [facility] Address [address] [place] [address] Phone [phone] Care Team Providers Care Gas And Oil Checker Name Role Phone Amor Pate MD Primary Care Provider [phone] Reason for Visit * Reason Onset Date Comments Appointment 05/08/2024 Encounter Details Date Type Department Care Team (Late st Contact Info) Description 05/08/2024 Telephone [facility], [place] [address] [place], [place] [id number] Brigida Byrd, [facility] [address] [place] [address] Appointment Allergies No known active allergiesdocumented as of this encounter (statuses as of 05/08/2024) Medications Medication Sig Dispensed Refills Start Date [...] in the morning. 30 Tablet 07/14/2023 Active Utobqgu-Stgbmyqbf-Vg tamin D ER 600-40-500 MG-MG-UNIT Tablet Extended [...] morning. 45 Tablet 3 12/25/2023 Active Nystatin 523434 UNIT/GM External CreamIndications:Can didal intertrigo Apply topically [...] as of this encounter (statuses as of 05/08/2024) Active Problems Problem Noted Date Diagnosed Date [...] barrier cream Keep area clean and dry Generalized weakness 07/08/2023 Last Assessment & Plan: [...] caregivers for shifts Using walker for ambulation. Type 2 diabetes mellitus wit h hemoglobin [...] multicystic lesion of the pancreas CEA, FLUID 91781.0 ng/mL Final COMMENT Final The reference range [...] patient does not have a Power of Electric Tool Repairer or Advanced Directives in place at this [...] as of this encounter (statuses as of 05/08/2024) Resolved Problems Problem Noted Date Diagnosed Date [...] Supratherapeutic INR 07/08/2023 024 Confusion 07/08/2023 02/04/2024 Ulcer of right foot 07/08/2023 11/28/19 24 [...] as of this encounter (statuses as of 05/08/2024) Immunizations Name Administration Dates Next Due COVID-19 [...] Miscellaneous Notes * Telephone Encounter - Brigida Byrd OSA - 05/08/2024 9:25 AM EDT Per request, schedule telemed visit every 2 weeks for the next month with Kayla Thompson. Scheduled appts for 05/20, 05/07, and 06/17 Called and pt agreed to appts. documented in this encounter Plan of Treatment Upcoming Encounters Date Type Department Care Team (Late st Contact Info) Description 05/11/2024 12:50 PM EDT Office Visit Dermatology, Francisco Caballero [address] [place] [phone] Marilyn Ozuna PA-C [address] [address] 05/20/2024 8:20 AM EDT Laboratory Lab Mobile Phlebotomy [place] [address] [place] [address] Gl, Gml Mobile Home Draw [address] [place] [address] 05/20/2024 8:50 AM EDT Home Visit [facility], [facility] 132 [facility] [place] [address] Kayla Thompson CRNP 132 [facility] [place] [address] Scarlett Nath, [facility] T[facility] Draw Helper [address] [place] [address] 05/21/2024 6:00 AM EDT Anticoagulation Centralized Clinical Pharmacy Services, Derrek [address] [place] [address] Ccps, [address] [place] [address] 05/28/2024 1:00 PM EDT Scheduled Telephone [facility], [facility] [address] [facility] [place] [address] Cyndie Hilton RDN [address] [facility] [place] S[place] [address] 06/01/2024 5:30 PM EDT Home Visit [facility], [facility] 132 [facility] [place] [address] Allison Young RN 132 [facility] [place] [address] 06/03/2024 12:50 PM EDT Home Visit [facility], [facility] 132 [facility] [place] [address] Kayla Thompson CRNP 132 [place] [address] Scarlett Nath, [facility] Helper [address] [place] [address] 06/17/2024 11:00 AM EST Telemedicine Hematology/Oncology, [facility] [address] [place] [address] Billy Basurto MD [address] [place] [phone] 06/17/2024 2:30 PM EST Home Visit [facility], [facility] 132 [facility] [place] [address] Kayla Thompson CRNP [facility] [address] Scarlett Nath, [facility] Tube Draw Helper [address] [place] [address] 07/10/2024 1:40 PM EST Home Visit [facility], [facility] 132 [facility] [place] [address] Kayla Thompson CRNP 132 [facility][1][place] [address] Zohaib Castillo [facility] Tube Draw Helper [address] [place] [address] 07/14/2024 12:00 PM EST Office Visit Gastroenterology, [address] [phone] Rashida Jerome PA-C 310 [facility] [place] [address] 08/18/2024 3:30 PM EST Office Visit Otolaryngology, Adwoa Lozada [place] [address] [place] [address] Hema Hercules PA-C [address] [place] [address] 08/26/2024 5:40 PM EST Office Visit [facility], [place] [address] [phone] Amor Pate MD [address] [address] 09/10/2024 12:50 PM EST Office Visit Dermatology, Adwoa Green [place] [address] [facility] [address] [place] [address] Marilyn Ozuna PA-C [address] [place] [address] 11/03/2024 3:00 PM EDT Office Visit Cardiology, [place] 400 [facility] [place] [address] Stephanie Ramos PA-C [address] [facility] [address] 12/31/2024 1:00 PM EDT Cardiac Studies Cardiology, [place] [address] [place] [address] Lucita Singh [address] [place] [address] 02/04/2025 12:00 PM EDT Home Visit Care at Home [address] [facility] [place] [address] Carol Mathew PA-C [address] [facility] [place] [address] Scheduled Procedures Name Priority Associated Diagnoses Date/Ti [...] Additional history exists CKD PHOS USE SMARTSET 66210 08/22/202408/05, 08/20/2023, 11/07/2022, Additional history exists HbA1c 10/14/2024 04/16/2024, 12/2022, 04/01/2023 Albumin/Creatinine Ratio 12/05/2024 12/06/2023, 03/06 Adult Wellness Visit 02/03/2025 02/04/2024, 02/29/20 23 Depression Screening 02/03/2025 02/04/2024, 12/10/19 24 DXA Scan 04/22/2025 04/22/2023, 04/05, 12/25/2018, Additional history exists CKD HGB USE SMARTSET 21709 05/06/202505/06, 05/06/2024, 03/02/2024, Additional history exists Pneumococcal Vaccine: 65+ Years Completed 02/01/2016, 10/27/2002 VITAMIN D LEVEL ONCE IN A LIFETIME-USE SMARTSET# 81153 Completed 04/16/2024, 09/16/2023, 10/20/2019, Additional history exists [...] this encounter Medical Devices Implanted Type Area Brand Communications Manager Device Identifier Shelf Expiration Date Model / Serial / Lot Implant System, Trim-It Drill Pin [id number](.078" X 4" Implanted:Qty: 1 on 10/10/2017 by Sydney Castelan DPM at OR [facility] Right: Toe 04/04/2019 AR-4152DS / / [id number] Medtronic Attesta Surescan Pacemaker Implanted:Qty: 1 on 06/09/2020 by Chanel Lin DO at OR [facility] Left: Chest 08/01/2021 ATSR01 / [id number] / Nail Gamma3 Left [id number] - [id number] Implanted:Qty: 1 on 01/20/2021 by Alli Townsend MD at OR [facility] Left: Hip MILAN : TRAUMA 12/03/2023 3525-034 0S / / [id number] Screw Lag 10.5x95mm - [id number] Implanted:Qty: 1 on 01/20/2021 by Alli Townsend MD at OR [facility] Left: Hip MILAN : TRAUMA 11/02/2025 3060-009 5S / / [id number] Screw T2 Alpha Lock 5x47.5mm - [id number] Implanted:Qty: 1 on 01/20/2021 by Alli Townsend MD at OR [facility] Left: Hip MILAN : TRAUMA 05/04/2029 2360-504 7S / / [id number] documented as of this encounter Advance Directives Documents on File Type Date Recorded Patient Student Teacher Expl anation POLST 07/15/2023 [place] OR [facility] FOR LIFE-SUSTAINING TREATMENT * Full Code [...] First Alternate Health Care Agent Care Teams Gas And Oil Checker Relationship Specialty Start Date End Date Amor Pate MD [address] [place] [place] [address] PCP - General Family Medicine 12/06/22 documented as of this encounter
--- OUTSIDE RECORDS SUMMARY | 2024-08-18 16:18 | External Medical Summary | Summary of Care ---
Author Name Unknown Organization [facility] Address [address] [place] [address] Phone [phone] Care Team Providers Care Charge Accounts Audit Clerk Name Role Phone Amor Pate MD Primary Care Provider [phone] Encounter Details Date Type Department Care Team (Late Contact Info) Description 05/07/2024 10:00 AM EDT [facility] 132 [facility] [place] [address] Allison Young, RN [address] [place] [address] Allergies No known active allergiesdocumented as of this encounter (statuses as of 05/07/2024) Medications Medication Sig Dispensed Refills Start Date [...] in the morning. 30 Tablet 07/14/2023 Active Arpbqaa-Nwsmkwgni-Sr tamin D ER 600-40-500 MG-MG-UNIT Tablet Extended [...] morning. 45 Tablet 3 12/25/2023 Active Nystatin 701910 UNIT/GM External CreamIndications:Can didal intertrigo Apply topically [...] [facility] 90 Tablet 1 04/10/2024 Active rOPINIRole HCl 0.25 MG Oral Tablet (Requip)Indications: Tremors of nervous system TAKE 1 TABLET BY MOUTH IN THE MORNING AND 1 IN THE EVENING 180 Tablet 05/06/2024 Active documented as of this encounter (statuses as of 05/07/2024) Active Problems Problem Noted Date Diagnosed Date [...] multicystic lesion of the pancreas CEA, FLUID 92694.0 ng/mL Final COMMENT Final The reference range [...] patient does not have a Power of Security Assurance Analyst or Advanced Directives in place at this [...] as of this encounter (statuses as of 05/07/2024) Resolved Problems Problem Noted Date Diagnosed Date [...] 02/04/2024 Ulcer of right foot 07/08/2023 11/28/19 Urinary [...] Last Assessment & Plan: PCP kyra bartholomew yeschuyay Has home health SN Seeing wound clinic [...] as of this encounter (statuses as of 05/07/2024) Immunizations Name Administration Dates Next Due COVID-19 [...] Date Smoking Tobacco: Never Smokeless Tobacco: Never Tobacco Cessation:Counseling Given: Not Answered Alcohol Use Standard Drinks/Week Comments No 0 [...] Sign Reading Time Taken Comments Blood Pressure 130/70 05/07/2024 10:25 AM EDT Pulse 68 05/07/2024 10:25 AM EDT Temperature 36 C (96.8 F) 05/07/2024 10:25 AM EDT Respiratory Rate 18 05/07/2024 10:25 AM EDT Oxygen Saturation 97% 05/07/2024 10:25 AM EDT Inhaled Oxygen Concentration - - [...] Progress Notes * Allison Young RN - 05/07/2024 10:00 AM EDT Images from the original note were not included. Current Concerns: Rosa Elena is an 88 year old female enrolled in [facility] with [facility] being seen by RNCM for an acute visit today.She has expressed concern for wound on her buttocks and would like further assessment. PMHx includes: a-fib - on coumadin, tachy-nikki syndrome, ckd3, dm2, htn, chronic UTI, Stage 2 pressure ulcer Rosa Elena has limited mobility and spends much of her day in the same position in her recliner chair. She and caregivers have been educated on importance of offloading pressure to promote wound healing and prevent future breakdown. She sits on a donut type of pillow which is firm and does not appear to provide pressure relief. Assessed wound. Rosa Elena has two stage 2 pressure ulcers on the left buttock gluteal fold. Both present as shallow, open ulcers, pink/red wound base, minimal drainage, no slough. Photo taken and added to medical record with patient's permission. Wounds cleansed, patted dry, duoderm applied. Educated caregiver on wound care and confirmed in home caregivers are permitted to do a simple dressing change. Rosa Elena is agreeable to a gel cushion, spouse will order from [employer] for next day delivery. Advised to reposition every 2 hours and offload pressure to buttocks to promote wound healing. Encouraged to rest in bed for 20-30 minutes a couple times during the day to relieve pressure. Pt reports she sleeps on her side at night. Discussed wound clinic, she is agreeable to an evaluation for further wound care recommendations. Physical Exam: Physical Exam Constitutional: General: She is not in acute distress. Appearance: She is normal weight. HENT: Mouth/Throat: Mouth: Mucous membranes are moist. Cardiovascular: Rate and Rhythm: Normal rate. Rhythm irregular. Pulmonary: Effort: Pulmonary effort is normal. Breath sounds: Normal breath sounds. Abdominal: General: Bowel sounds are normal. Palpations: Abdomen is soft. Musculoskeletal: General: Normal range of motion. Skin: General: Skin is warm. Capillary Refill: Capillary refill takes 2 to 3 seconds. Neurological: Mental Status: She is alert and oriented to person, place, and time. Motor: Weakness present. Gait: Gait abnormal. Psychiatric: Mood and Affect: Mood normal. Review of Systems: Review of Systems Constitutional: Negative for chills, fatigue and fever. HENT: Positive for rhinorrhea. Respiratory: Negative for cough and shortness of breath. Cardiovascular: Negative for chest pain, palpitations and leg swelling. Gastrointestinal: Negative for constipation and diarrhea. Genitourinary: Negative for difficulty urinating. Musculoskeletal: Positive for arthralgias and gait problem. Skin: Positive for wound (see photo). Neurological: Negative for dizziness, light-headedness and headaches. Hematological: Bruises/bleeds easily. Psychiatric/Behavioral: The patient is nervous/anxious. Care Plan Goal Progress: Patient will maintain [...] this contact:: Home based procedures;Plan of Care (POC);Education (05/07/24 1028) Type of education: Clinical/disease (05/07/24 1028) Procedure performed: Wound care (05/07/24 1028) Type of plan of care (POC) care gap: Creation of plan of care (POC) and/or Integrated Care Plan (ICP) (05/07/24 1028) documented in this encounter Plan of Treatment Upcoming Encounters Date Type Department Care Team (Late st Contact Info) Description 05/11/2024 12:50 PM EDT Office Visit Dermatology, Francisco Caballero [address] [place] [address] Marilyn Ozuna PA-C [address] [address] 05/20/2024 8:20 AM EDT Laboratory Lab Mobile Phlebotomy [facility] [address] [place] [address] [facility], l Mobile Home Draw [address] [place] [address] 05/21/2024 6:00 AM EDT Anticoagulation Centralized Clinical Pharmacy Services, Derrek Denton [address] [place] [address] [place] [address] [facility] [address] [place] [address] 05/28/2024 1:00 PM EDT Scheduled Telephone [facility], [facility] [address] [facility] [place] [address] Cyndie Hilton, RDN [address] [facility] [place] [address] 06/01/2024 5:30 PM EDT Home Visit [facility], [facility] 132 [facility] [place] [address] Allison Young RN 132 [facility] [place] [address] 06/17/2024 11:00 AM EST Telemedicine Hematology/Oncology, [facility] [address] [place] [address] Billy Basurto MD 400 [place] [phone] 07/10/2024 1:40 PM EST Home Visit [facility], [facility] 132 [facility] [place] [address] Kayla Thompson CRNP 132 [place] [address] Zohaib Castillo [facility] [address] [place] [address] 07/14/2024 12:00 PM EST Office Visit Gastroenterology, [facility] [address] [place] [address] Rashida Jerome PA-C [address] [place] [address] 08/18/2024 3:30 PM EST Office Visit Otolaryngology, [place] [address] [place] [address] [address] Hema Hercules PA-C [address] [place] [address] 08/26/2024 5:40 PM EST Office Visit Family [facility], [place] [address] [place] [phone] Amor Pate MD [address] [place] [address] 09/10/2024 12:50 PM EST Office Visit Dermatology, [place] [address] [place] [address] Marilyn Ozuna PA-C [address] [place] cheng [address] 11/03/2024 3:00 PM EDT Office Visit Cardiology, [place] [address] [place] [address] Stephanie Ramos PA-C 400 [facility] [address] 12/31/2024 1:00 PM EDT Cardiac Studies Cardiology, [place] [address] [place] [address] Lucita Singh [facility] [address] [place] [address] 02/04/2025 12:00 PM EDT Home Visit Care at Home [address] [place], [place] [phone] Carol Mathew PA-C [address] [place], [place] [phone] Scheduled Procedures Name Priority Associated Diagnoses Date/Ti [...] Additional history exists CKD PHOS USE SMARTSET 36643 08/22/202408/05, 08/20/2023, 11/07/2022, Additional history exists HbA1c 10/14/2024 04/16/2024, 1212/2022, 04/01/2023 Albumin/Creatinine Ratio 12/05/2024 12/06/2023, 03/06 Adult Wellness Visit 02/03/2025 02/04/2024, 02/29/20 23 Depression Screening 02/03/2025 02/04/2024, 12/10/19 24 DXA Scan 04/22/2025 04/22/2023, 04/05, 12/25/2018, Additional history exists CKD HGB USE SMARTSET 03144 05/06/202505/06, 05/06/2024, 03/02/2024, Additional history exists Pneumococcal Vaccine: 65+ Years Completed 02/01/2016, 10/27/2002 VITAMIN D LEVEL ONCE IN A LIFETIME-USE SMARTSET# 75530 Completed 04/16/2024, 09/16/2023, 10/20/2019, Additional history exists [...] this encounter Medical Devices Implanted Type Area Body Welder Device Identifier Shelf Expiration Date Model / Serial / Lot Implant System, Trim-It Drill Pin [id number](.078" X 4" Implanted:Qty: 1 on 10/10/2017 by Sydney Castelan DPM at OR [facility] Right: Toe 04/04/2019 AR-4152DS / / [id number] Medtronic Attesta Surescan Pacemaker Implanted:Qty: 1 on 06/09/2020 by Chanel Lin DO at OR [facility] Left: Chest 08/01/2021 ATSR01 / [id number] / Nail [id number] Left [id number] - [id number] Implanted:Qty: 1 on 01/20/2021 by Alli Townsend MD at OR [facility] Left: Hip MILAN : TRAUMA 12/03/2023 3525-034 0S / / [id number] Screw Lag 10.5x95mm - [id number] Implanted:Qty: 1 on 01/20/2021 by Alli Townsend MD at OR [facility] Left: Hip MILAN : TRAUMA 11/02/2025 3060-009 5S / / [id number] Screw T2 Alpha Lock 5x47.5mm - [id number] Implanted:Qty: 1 on 01/20/2021 by Alli Townsend MD at OR [facility] Left: Hip MILAN : TRAUMA 05/04/2029 2360-504 7S / / [id number] documented as of this encounter Advance Directives Documents on File Type Date Recorded Patient Host Hostess Expl anation POLST 07/15/2023 [place] OR [facility] FOR LIFE-SUSTAINING TREATMENT * Full [...] First Alternate Health Care Agent Care Teams Charge Accounts Audit Clerk Relationship Specialty Start Date End Date Amor Pate MD [address] [phone] PCP - General Family Medicine 12/06/22 documented as of this encounter
--- OUTSIDE RECORDS SUMMARY | 2024-08-18 16:18 | External Medical Summary | Summary of Care ---
Author Name Unknown Organization [facility] Address [address] [place] [address] Phone [phone] Care Team Providers Care Hand Marker Name Role Phone Amor Pate MD Primary Care Provider [phone] Reason for Visit * Reason Comments Dosage Adjustment Via Phone (anticoag Cl inic) Encounter Details Date Type Department Care Team (Late st Contact Info) Description 05/07/2024 6:00 AM EDT Anticoagulation Centralized Clinical Pharmacy Services, Derrek Denton [address] [place] [address] [place] [address] [place] [address] technician terminal and repeater current use of anticoagulant therapy* Allergies No [...] in the morning. 30 Tablet 07/14/2023 Active Xqvrsso-Ktlktsuuu-Yi tamin D ER 600-40-500 MG-MG-UNIT Tablet Extended [...] morning. 45 Tablet 3 12/25/2023 Active Nystatin 580776 UNIT/GM External CreamIndications:Can didal intertrigo Apply topically [...] multicystic lesion of the pancreas CEA, FLUID 94964.0 ng/mL Final COMMENT Final The reference range [...] 06/18/2013 Last Assessment & Plan: S/p pacemaker technician terminal and repeater current use of anticoagulant therapy 0 08/28/2010 [...] patient does not have a Power of Cafeteria Worker or Advanced Directives in place at [...] FINAL HGB(g/dL) Rd Dt/Tm Resulted Value Status 7/30/10 8:10A 03/03/10 11.9* nl iron B12 08/31/09 [...] the money to buy more. Never true 04/01/20 24 Within the past 12 months, t he food you bought just didn't last and you didn't have money to get more. Never true 04/01/2024 Childcare Answer Date Recorded Do you feel overwhelmed with taking care of a child, family member or friend? No 04/01/2024 Does your family need help f inding childcare? (Household - for ages 0-17 years) Not on file 04/01/2024 Clothing Answer Date Recorded Have you been unable to get clothing when it was really needed? No 04/01/2024 Is your family able to get c lothes or diapers when needed? (Household - for ages 0-17 years) Not on file 04/01/2024 Personal Safety Answer Date Recorded Do you feel unsafe or have concerns for your saf ety? No 04/01/2024 Do you have concerns for you r family's safety? (Household - for ages 0-17 years) Not on file 04/01/2024 Utilities Answer Date Recorded Do you have [...] you unemployed or without regular income? No 04/01/2024 Does the household have a re gular source of income? (Household - for ages 0-17 years) Not on file 04/01/2024 Social Connections Answer Date Recorded How often do you feel lonely or isolated from th ose around you? Never 04/01/2024 Financial Resource Strain Answer Date R ecorded Do you have any trouble payi ng for your medications, or do you think you might in the future? No 04/01/2024 Does your family have troubl e paying for medicine? (Household - for ages 0-17 years) Not on file 04/01/2024 Transportation Needs Answer Date Record ed READ ONLY Do you have troubl e getting a ride to medical visits or work? Never True 04/01/2024 Does your family have a hard time getting a ride to doctors visits? (Household - for ages 0-17 years) Not on file 04/01/2024 Has lack of transportation k ept you from medical appointments, meetings, work, or from getting things needed for daily living? Check all that apply. No 04/01/2024 Do you (or your family) have trouble finding or paying for a ride (transportation)? (Household - for ages 0-17 years) Not on file 04/01/2024 Housing Stability Answer Date Recorded Do you currently live in a s helter or have no steady place to sleep at night? No 04/01/2024 READ ONLY Do you think you a re at risk of becoming homeless? No 04/01/2024 Does your family worry about paying for your home or becoming homeless? (Household - for ages 0-17 years) Not on file 0 04/01/2024 Are you homeless or worried that you might be in the future? No 04/01/2024 Are you (or your family) jun eless or worried that you might be in the future? (Household - for ages 0-17 years) Not on file Food Insecurity Answer Date Recorded Do you need food for this week? No 04/01/2024 Are you able to get enough f ood for your family? (Household - for ages 0-17 years) Not on file 04/01/2024 Does your family need food t his week? (Household - for ages 0-17 years) Not on file 04/01/2024 Do you always have enough fo od for your family? (Household - for ages 0-17 years) Not on file 04/01/2024 Sex and Gender Information Value Date Recorded [...] as of this encounter Progress Notes * [employer] PHARM Tech - 05/07/2024 9:25 AM EDT Contacts Contact Date/Time Type Contact Phone/Fax 05/07/2024 09:23 AM EDT Phone (Outgoing) Zulma Villar (Self) [phone] (H) Subjective Patient Findings Negatives: Signs/symptoms of bleeding, Change in health, Change in activity, Upcoming invasive procedure, Missed doses, Extra doses, Change in medications, Change in diet/appetite, Bruising Advised patient to contact Anticoagulation Clinic if any unusual bruising or bleeding, recent illness, changes in medication, or questions/concerns. PT/INR results, Coumadin dose instructions, and next PT/INR date communicated as noted by Pharmacist: Yes JAH PINO 05/07/2024, 9:25 AM * Kadie Byers RPh - 05/07/2024 8:50 AM EDT Coumadin Clinic (region specific) Objective Current Warfarin Dose As of 05/07/2024 Warfarin maintenance plan: 4 mg (2 mg x 2) every Fri; 2 mg (2 mg x 1) all other days INR Result As of 05/07/2024 INR goal: 2.0-3.0 INR used for dosin.0 (05/06/2024) Assessment & Plan Warfarin Plan As of 05/07/2024 Full warfarin instructions: 4 mg every Fri; 2 mg all other days No change documented: Kadie Byers RPh Next INR check: 05/20/2024 Repeat PT/INR in 2 week(s) Weekly dose: not changed Additional Dosing Information: Description [facility] Lorraine Singh fax [phone] Boost- 1/day Tech to contact patient with dose instructions as noted. Kadie Byers RPh 05/07/2024, 8:51 AM documented in this encounter Plan of Treatment Upcoming Encounters Date Type Department Care Team (Late st Contact Info) Description 05/07/2024 10:00 AM EDT Home Visit [facility] [address] [place] [address] Allison Young RN [address] [facility] [place] [address] 05/11/2024 12:50 PM EDT Office Visit Dermatology, Francisco Caballero [address] [place] [address] Marilyn Ozuna PA-C 27 [place] [address] 05/21/2024 6:00 AM EDT Anticoagulation Centralized Clinical Pharmacy Services, Derrek Denton [address] [place] [address] [place] [address] Ccps, [facility] [address] [place] [address] 05/28/2024 1:00 PM EDT Scheduled Telephone [facility], [facility] [address] [facility] [place] [address] Cyndie Hilton, RDN [address] [facility] [place] [address] 06/01/2024 5:30 PM EDT Home Visit [facility], [facility] [address] [facility] [address] Allison Young RN 132 [place] [address] 06/17/2024 11:00 AM EST Telemedicine Hematology/Oncology, [facility] 400 [place] [address] Billy Basurto MD [address] [place] [phone] 07/10/2024 1:40 PM EST Home Visit [facility], [facility] [address] [facility] [address] Kayla Thompson CRNP 132 [place] [address] Zohaib Castillo [facility] [address] [place] [address] 07/14/2024 12:00 PM EST Office Visit Gastroenterology, [facility] [address] [place] [address] Rashida Jerome PA-C [address] [place] [address] 08/18/2024 3:30 PM EST Office Visit Otolaryngology, [place] [address] [place] [address] Hema Hercules PA-C [address] [place] [address] 08/26/2024 5:40 PM EST Office Visit Family [facility], [place] [address] [place] [phone] Amor Pate MD 21 [place] [address] 09/10/2024 12:50 PM EST Office Visit D[place]atology, [place] [address] [place] [address] Marilyn Ozuna PA-C [address] [place] cheng [address] 11/03/2024 3:00 PM EDT Office Visit Cardiology, [place] [address] [place] [address] Stephanie Ramos PA-C 400 [facility] [place] [address] 12/31/2024 1:00 PM EDT Cardiac Studies Cardiology, [place] 400 [facility] [place] [address] Lucita Singh [facility] 400 [facility] [place] [address] 02/04/2025 12:00 PM EDT [facility] Visit [facility] [address] [facility] [phone] Carol Mathew PA-C [address] [facility] [place] [address] Scheduled Procedures Name Priority Associated Diagnoses Date/Ti [...] Additional history exists CKD PHOS USE SMARTSET 82183 08/22/202408/05, 08/20/2023, 11/07/2022, Additional history exists HbA1c 10/14/2024 04/16/2024, 1212/2022, 04/01/2023 Albumin/Creatinine Ratio 12/05/2024 12/06/2023, 03/06 Adult Wellness Visit 02/03/2025 02/04/2024, 02/29/20 23 Depression Screening 02/03/2025 02/04/2024, 12/10/19 24 DXA Scan 04/22/2025 04/22/2023, 04/05, 12/25/2018, Additional history exists CKD HGB USE SMARTSET 53903 05/06/202505/06, 05/06/2024, 03/02/2024, Additional history exists Pneumococcal Vaccine: 65+ Years Completed 02/01/2016, 10/27/2002 VITAMIN D LEVEL ONCE IN A LIFETIME-USE SMARTSET# 81135 Completed 04/16/2024, 09/16/2023, 10/20/2019, Additional history exists [...] this encounter Medical Devices Implanted Type Area Tower Switch Operator Device Identifier Shelf Expiration Date Model / Serial / Lot Implant System, Trim-It Drill Pin [id number]" X 4" Implanted:Qty: 1 on 10/10/2017 by Sydney Castelan DPM at OR [facility] Right: Toe 04/04/2019 AR-[id number] / / [id number] Medtronic Attesta Surescan Pacemaker Implanted:Qty: 1 on 06/09/2020 by Chanel Lin DO at OR [facility] Left: Chest 08/01/2021 ATSR01 / [id number] / Nail [id number] Left [id number] - [id number] Implanted:Qty: 1 on 01/20/2021 by Alli Townsend MD at OR [facility] Left: Hip MILAN : TRAUMA 12/03/2023 3525-034 0S / / [id number] Screw Lag 10.5x95mm - [id number] Implanted:Qty: 1 on 01/20/2021 by Alli Townsend MD at OR [facility] Left: Hip MILAN : TRAUMA 11/02/2025 3060-009 5S / / [id number] Screw T2 Alpha Lock 5x47.5mm - [id number] Implanted:Qty: 1 on 01/20/2021 by Alli Townsend MD at OR [facility] Left: Hip MILAN : TRAUMA 05/04/2029 2360-504 7S / / [id number] documented as of this encounter Visit Diagnoses Diagnosis shelter current use of anticoagulant therapy- Primary documented in this encounter Advance Directives Documents on File Type Date Recorded Patient Prn Physical Therapist Expl anation POLST 07/15/2023 [place] OR [facility] FOR LIFE-SUSTAINING TREATMENT * Full Code (Latest [...] First Alternate Health Care Agent Care Teams Hand Marker Relationship Specialty Start Date End Date Amor Pate MD 21 [place] [address] PCP - General Family Medicine 12/06/22 documented as of this encounter
--- OUTSIDE RECORDS SUMMARY | 2024-08-18 16:18 | External Medical Summary | Summary of Care ---
Author Name Unknown Organization [facility] Address [address] [place] [address] Phone [phone] Care Team Providers Care Medical Case Manager Name Role Phone Amor Pate MD Primary Care Provider [phone] Reason for Visit * Reason Onset Date Comments [facility]: Maintenance 05/06/2024 Encounter Details Date Type Department Care Team (Late st Contact Info) Description 05/06/2024 Telephone [facility], [facility] [address] [place] [address] Linnea Moncada RN [address] [place] [address] [facility]: Maintenance Allergies No known active allergiesdocumented as of this encounter (statuses as of 05/06/2024) Medications Medication Sig Dispensed Refills Start Date [...] in the morning. 30 Tablet 07/14/2023 Active Myqkruy-Xmmirreyl-Za tamin D ER 600-40-500 MG-MG-UNIT Tablet Extended [...] morning. 45 Tablet 3 12/25/2023 Active Nystatin 795415 UNIT/GM External CreamIndications:Can didal intertrigo Apply topically [...] as of this encounter (statuses as of 05/06/2024) Active Problems Problem Noted Date Diagnosed Date [...] multicystic lesion of the pancreas CEA, FLUID 60832.0 ng/mL Final COMMENT Final The reference range [...] 06/18/2013 Last Assessment & Plan: S/p pacemaker manager terminal current use of anticoagulant therapy 0 08/28/2010 History of vitamin D deficiency 03/09/2010 Overview: Resolved 2009 Advance directive discussed with patient 12/22/2 005 Overview: 10/03/2016 forgot to bring 10/03/2016 [...] patient does not have a Power of Watch And Clock Maker And Repairer or Advanced Directives in place at [...] as of this encounter (statuses as of 05/06/2024) Resolved Problems Problem Noted Date Diagnosed Date [...] as of this encounter (statuses as of 05/06/2024) Immunizations Name Administration Dates Next Due COVID-19 mRNA, LNP-s, No Pre serve, 2-Dose Series ([employer]) 10/26/2020,09/30/2020 Pneumococcal Conjugate Vacc, 13 Valent (Prevnar) [...] encounter Miscellaneous Notes * Telephone Encounter - Linnea Moncada RN - 05/06/2024 5:07 PM EDT Pc received from pt. She is asking micha xiao nurse deb perez a HV to check her wound. She is concerned that her buttocks wound will get worse. Chart reviewed. Pt has called her PCP and [place] tried to arrange for nursing but no agency will accepty the pt. Pt does have Home aids for 8 hr blocks of time. Unsure if applying Duoderm patch is in the scope oftheir duties. Pt is scheduled for RN 06/01/24. She has Derm appt on Saturday. Pt mostly sits and has direct pressure on the buttocks. Unsure if wound care center would be beneficial. [facility] scheduled for tomorrow. Routing to Care Team for further recommendations. Linnea Moncada RN [facility] Intake [phone] documented in this encounter Plan of Treatment Upcoming Encounters Date Type Department Care Team (Late st Contact Info) Description 05/07/2024 6:00 AM EDT Anticoagulation Centralized Clinical Pharmacy Services, Derrek Denton [address] [place] [address] [place] [address] Ccps, [address] [place] [address] 05/07/2024 9:30 AM EDT Scheduled Telephone [facility], [facility] [address] [place] [address] Coordinator, [facility] [address] [place] [address] 05/11/2024 12:50 PM EDT Office Visit Dermatology, Francisco Caballero [address] [place] [address] Marilyn Ozuna PA-C [address] [place] [address] 05/28/2024 1:00 PM EDT Scheduled Telephone [facility], [facility] [address] [facility] [place] [address] Cyndie Hilton RDN [address] [facility] [place] [address] 06/01/2024 5:30 PM EDT Home Visit [facility], [facility] [address] [place] [address] Allison Young RN [address] [facility] [place] [address] 06/17/2024 11:00 AM EST Telemedicine Hematology/Oncology, [address] [place] [address] Billy Basurto MD [address] [place] [address] 07/10/2024 1:40 PM EST Home Visit [facility] at [facility] [address] [facility] [place] [address] Kayla Thompson CRNP 132 [facility] [place] [address] Zohaib Castillo, [employer] Executive Director [address] [place], [place] [phone] 07/14/2024 12:00 PM EST [facility] [address] [place] [phone] Rashida Jerome PA-C 310 [facility] [place] [address] 08/18/2024 3:30 PM EST Office Visit Otolaryngology, Francisco Polanco [address] [place] [address] Hema Hercules PA-C [address] [place] [address] 08/26/2024 5:40 PM EST Office Visit Family [facility] [place] [address] [place] [phone] Amor Pate MD [address] [place] [address] 09/10/2024 12:50 PM EST Office Visit Dermatology, [place] [address] [place] [address] Marilyn Ozuna PA-C [address] [place] [address] 11/03/2024 3:00 PM EDT Office Visit Cardiology, [place] 400 [facility] [place] [address] Stephanie Ramos PA-C 400 [facility] [place] [address] 12/31/2024 1:00 PM EDT Cardiac Studies Cardiology, [place] [address] [facility] [place] [address] [place], [facility] [address] [facility] [place] [address] 02/04/2025 12:00 PM EDT Home Visit Care at Home [address] [place], [place] [phone] Carol Mathew PA-C [address] [place] [address] Scheduled Procedures Name Priority Associated Diagnoses Date/Ti [...] Additional history exists CKD PHOS USE SMARTSET 99437 08/22/202408/05, 08/20/2023, 11/07/2022, Additional history exists HbA1c 10/14/2024 04/16/2024, 12/2022, 04/01/2023 Albumin/Creatinine Ratio 12/05/2024 12/06/2023, 03/06 Adult Wellness Visit 02/03/2025 02/04/2024, 02/29/20 23 Depression Screening 02/03/2025 02/04/2024, 12/10/19 24 DXA Scan 04/22/2025 04/22/2023, 04/05, 12/25/2018, Additional history exists CKD HGB USE SMARTSET 37226 05/06/202505/06, 05/06/2024, 03/02/2024, Additional history exists Pneumococcal Vaccine: 65+ Years Completed 02/01/2016, 10/27/2002 VITAMIN D LEVEL ONCE IN A LIFETIME-USE SMARTSET# 16752 Completed 04/16/2024, 09/16/2023, 10/20/2019, Additional history exists [...] this encounter Medical Devices Implanted Type Area Nuclear Powerplant Mechanic Helper Device Identifier Shelf Expiration Date Model / Serial / Lot Implant System, Trim-It Drill Pin [id number]" X 4" Implanted:Qty: 1 on 10/10/2017 by Sydney Castelan DPM at OR [facility] Right: Toe 04/04/2019 AR-4152DS / / [id number] Medtronic Attesta Surescan Pacemaker Implanted:Qty: 1 on 06/09/2020 by Chanel Lin DO at OR [facility] Left: Chest 08/01/2021 ATSR01 / [id number] / Nail Gamma3 Left [id number] - [id number] Implanted:Qty: 1 on 01/20/2021 by Alli Townsend MD at OR [facility] Left: Hip MILAN : TRAUMA 12/03/2023 3525-034 0S / / [id number] Screw Lag 10.5x95mm - [id number] Implanted:Qty: 1 on 01/20/2021 by Alli Townsend MD at OR [facility] Left: Hip MILAN : TRAUMA 11/02/2025 3060-009 5S / / [id number] Screw T2 Alpha Lock 5x47.5mm - [id number] Implanted:Qty: 1 on 01/20/2021 by Alli Townsend MD at OR [facility] Left: Hip MILAN : TRAUMA 05/04/2029 2360-504 7S / / [id number] documented as of this encounter Advance Directives Documents on File Type Date Recorded Patient Sex Crimes Detective Expl anation POLST 07/15/2023 [place] OR [email or web address] FOR LIFE-SUSTAINING TREATMENT * Full Code (Latest [...] First Alternate Health Care Agent Care Teams Medical Case Manager Relationship Specialty Start Date End Date Amor Pate MD [address] [place] [phone] PCP - General Family Medicine 12/06/22 documented as of this encounter
--- OUTSIDE RECORDS SUMMARY | 2024-08-18 16:18 | External Medical Summary | Summary of Care ---
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 [facility] Where is the wound? Knee and above Comments Assess for: Other: Pressure ulcers buttocks Reason for Visit * Reason Onset Date Comments [facility]: Maintenance 05/06/2024 Encounter Details Date Type Department Care Team ([facility] Contact Info) Description 05/06/2024 Telephone [facility], [facility] [address] [facility] [place] [phone] Linnea Moncada, RN [address] [facility] [place] [address] [facility]: Maintenance Allergies No known [...] in the morning. 30 Tablet 07/14/2023 Active Uytireb-Rdnabrzfk-Bg tamin D ER 600-40-500 MG-MG-UNIT Tablet Extended [...] morning. 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 (Household - for ages [...] as of this encounter Miscellaneous Notes * Addendum Note - Kayla Thompson CRNP - 05/07/2024 12:58 PM EDTAddended by: KAYLA THOMPSON on: 05/07/2024 12:58 PM Modules accepted: Orders * Telephone Encounter - Kayla Thompson CRNP - 05/07/2024 12:58 PM EDT Pt agreeable to go to wound clinic. Referral placed. Scheduling--please assist. * Telephone Encounter - Linnea Moncada RN - 05/06/2024 5:07 PM EDT Pc received from pt. She is asking micha xiao nurse deb perez a HV to check her wound. She is concerned that her buttocks wound will get worse. Chart reviewed. Pt has called her PCP and [facility] tried to arrange for nursing but no agency will accepty the pt. Pt does have Home aids for 8 hr blocks of time. Unsure if applying Duoderm patch is in the scope oftheir duties. Pt is scheduled for [facility] 06/01/24. She has Derm appt on Saturday. Pt mostly sits and has direct pressure on the buttocks. Unsure if wound care center would be beneficial. [facility] scheduled for tomorrow. Routing to Care Team for further recommendations. Linnea Moncada RN [facility] Intake [phone] documented in this encounter Plan of Treatment Upcoming Encounters Date Type Department Care Team (Late st Contact Info) Description 05/11/2024 12:50 PM EDT Office Visit Dermatology, Francisco Caballero [address] [place] [phone] Marilyn Ozuna PA-C [address] [place] [address] 05/20/2024 8:20 AM EDT Laboratory Lab Mobile Phlebotomy [facility] [address] [place] [address] [facility], l Mobile Home Draw [address] [facility] [place] [address] 05/21/2024 6:00 AM EDT Anticoagulation Centralized Clinical Pharmacy Services, Derrek Denton [address] [place] [address] [place] [address] Ccps, [address] [place] [address] 05/28/2024 1:00 PM EDT Scheduled Telephone [facility], [facility] [address] [facility] [place] [address] Cyndie Hilton RDN [address] [facility] [place] [address] 06/01/2024 5:30 PM EDT Home Visit [facility] [place], [facility] [address] [facility] [place] [address] Allison Young RN 132 [place] [address] 06/17/2024 11:00 AM EST Telemedicine Hematology/Oncology, [facility] 400 [facility] [address] Billy Basurto MD 400 [facility] [phone] 07/10/2024 1:40 PM EST Home Visit [facility], [facility] 132 [facility] [place] [address] Kayla Thompson CRNP [address] [place] [address] Zohaib Castillo, [facility], [facility] Health Beef Pusher [address] [place] [address] 07/14/2024 12:00 PM EST Office Visit Gastroenterology, [facility] [address] [place] [address] Rashida Jerome PA-C 310 [facility] [place] [address] 08/18/2024 3:30 PM EST Office Visit Otolaryngology, [place] [address] [place] [address] Hema Hercules PA-C [address] [place] [address] 08/26/2024 5:40 PM EST Office Visit Family Practice, [place] [address] [place] [phone] Amor Pate MD [address] [place] [address] 09/10/2024 12:50 PM EST Office Visit Dermatology, [place] [address] [facility] 140 [place] [address] Marilyn Ozuna PA-C [address] [place] [address] 11/03/2024 3:00 PM EDT Office Visit Cardiology, [place] [address] [place] [address] Stephanie Ramos PA-C 400 [facility] [place] [address] 12/31/2024 1:00 PM EDT Cardiac Studies Cardiology, [place] [address] [place] [address] [place], [facility] [address] [place] [address] 02/04/2025 12:00 PM EDT Home Visit Care at Home [address] [place] [address] Carol Mathew PA-C [address] [place] [address] Scheduled Procedures Name Priority Associated Diagnoses Date/Ti me ESOPHAGOGASTRODUODENOSCOPY ( EGD), FLEXIBLE, TRANSORAL, ENDOSCOPIC ULTRASOUND Recall Pancreatic cyst Scheduled Referrals Name Type Priority Associated Diagnoses Orde r Schedule WOUND CARE REFERRAL OP Referral Within 10 days (routine) 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, stage 2, unspecified laterality (HCC) Ordered: 05/07/2024 Health Maintenance Due Date Last Done Comments Diabetic Foot Exam 1953 Zoster Vaccines (2 of 3) 12/24/2011 10/29/2011 *BISPHONATE OR OTHER ACCEPTABLE MEDICATION NEEDED FOR OSTEOPOROSIS (REFER TO SMARTSET #1146) 08/15/2022 DTap/Tdap Vaccines (2 - Td or Tdap) 10/03/2022 10/03/2012, 07/04/2005, 08/22/1992 COVID-19 Vaccine ( season) 2024 10/26/2020, 09/30/2020 Diabetic Eye Exam 06/19/2024 06/19/2023, , 01/12/2019, Additional history exists CKD PHOS USE SMARTSET 82819 08/22/202408/05, 08/20/2023, 11/07/2022, Additional history exists HbA1c 10/14/2024 04/16/2024, 12/0 12/2022, 04/01/2023 Albumin/Creatinine Ratio 12/05/2024 12/06/2023, 03/06 Adult Wellness Visit 02/03/2025 02/04/2024, 02/29/20 23 Depression Screening 02/03/2025 02/04/2024, 12/10/19 24 DXA Scan 04/22/2025 04/22/2023, 04/05, 12/25/2018, Additional history exists CKD HGB USE SMARTSET 24166 05/06/202505/06, 05/06/2024, 03/02/2024, Additional history exists Pneumococcal Vaccine: 65+ Years Completed 02/01/2016, 10/27/2002 VITAMIN D LEVEL ONCE IN A LIFETIME-USE SMARTSET# 44403 Completed 04/16/2024, 09/16/2023, 10/20/2019, Additional history exists [...] this encounter Medical Devices Implanted Type Area Signal Tower Director Device Identifier Shelf Expiration Date Model / Serial / Lot Implant System, Trim-It Drill Pin [id number](.078" X 4" Implanted:Qty: 1 on 10/10/2017 by Sydney Castelan DPM at OR [facility] Right: Toe 04/04/2019 AR-[id number] / / [id number] Medtronic Attesta Surescan Pacemaker Implanted:Qty: 1 on 06/09/2020 by Chanel Lin DO at OR [facility] Left: Chest 08/01/2021 ATSR01 / [id number] / Nail [id number] Left [id number] - [id number] Implanted:Qty: 1 on 01/20/2021 by Alli Townsend MD at OR [facility] Left: Hip MILAN : TRAUMA 12/03/2023 3525-034 0S / / [id number] Screw Lag 10.5x95mm - [id number] Implanted:Qty: 1 on 01/20/2021 by Alli Townsend MD at OR [facility] Left: Hip MILAN : TRAUMA 11/02/2025 3060-009 5S / / [id number] Screw T2 Alpha Lock 5x47.5mm - [id number] Implanted:Qty: 1 on 01/20/2021 by Alli Townsend MD at OR [facility] Left: Hip MILAN : TRAUMA 05/04/2029 2360-504 7S / / [id number] documented as of this encounter Visit Diagnoses Diagnosis 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
--- OUTSIDE RECORDS SUMMARY | 2024-08-18 16:18 | External Medical Summary | Summary of Care ---
Author Name Unknown Organization [facility] Address [address] [place] [address] Phone [phone] Care Team Providers Care Fluorescent Solution Mixer Name Role Phone Amor Pate MD Primary Care Provider [phone] Reason for Visit * Reason Onset Date Comments Appointment 05/07/2024 Encounter Details Date Type Department Care Team (Late st Contact Info) Description 05/07/2024 Telephone [facility], [place] [address] [place], [place] [phone] Brigida Byrd, [facility] [address] [place] [address] Appointment Allergies No known active [...] in the morning. 30 Tablet 07/14/2023 Active Qiinovi-Mbjghgcwe-Fg tamin D ER 600-40-500 MG-MG-UNIT Tablet Extended [...] morning. 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 Called wound care in [place] and they stated they cannot see patient based on the area of the wound. Pt would have to be seen in [place]. Scheduled appt for 05/28 in [place]. Called pt to inform unable to schedule for [place] and has to be [place]. Pt states she is unable to get to [place] for appt. Sent message to care team documented in this encounter Plan of Treatment Upcoming Encounters Date Type Department Care Team (Late st Contact Info) Description 05/11/2024 12:50 PM EDT Office Visit Dermatology, Francisco Caballero [address] [place] [address] Marilyn Ozuna PA-C [address] [place] [address] 05/20/2024 8:20 AM EDT Laboratory Lab Mobile Phlebotomy [facility] [address] [facility] [place] [address] [facility], l Mobile Home Draw [address] [place] [address] 05/21/2024 6:00 AM EDT Anticoagulation Centralized Clinical Pharmacy Services, Derrek Denton [address] [place] [address] [place] [address] Ccps, [address] [place] [address] 05/28/2024 9:50 AM EDT Office Visit Wound Care, [place] [address] [place] [address] Albaro Bishop MD [address] [place] [address] 05/28/2024 1:00 PM EDT Scheduled Telephone [facility], [facility] [address] [facility] [place] [address] Cyndie Hilton RDN [address] [facility] [place] [address] 06/01/2024 5:30 PM EDT Home Visit [facility], [facility] 132 [facility] [place] [address] Allison Young RN 132 [facility] [place] [address] 06/17/2024 11:00 AM EST Telemedicine Hematology/Oncology, [address] [place] [address] Billy Basurto MD 400 [place] [address] 07/10/2024 1:40 PM EST [facility] [address] [facility] [place] [address] Kayla Thompson CRNP [address] [place] [address] Zohaib Castillo, [facility]p Repairer [address] [place] [address] 07/14/2024 12:00 PM EST [facility], [facility] [address] [place] [phone] Rashida Jerome PA-C [address] [facility] [place] [address] 08/18/2024 3:30 PM EST Office Visit Otolaryngology, Francisco Polanco [address] [place] [address] Hema Hercules PA-C [address] [place] [address] 08/26/2024 5:40 PM EST Office Visit Family [facility] [place] [address] [place] [phone] Amor Pate MD [address] [place] [address] 09/10/2024 12:50 PM EST Office Visit Dermatology, [place] [address] [facility] 140 [place] [address] Marilyn Ozuna PA-C [address] [place] [address] 11/03/2024 3:00 PM EDT Office Visit Cardiology, [place] [address] [facility] [place] [address] Stephanie Ramos PA-C [address] [facility] [place] [address] 12/31/2024 1:00 PM EDT Cardiac Studies Cardiology, [place] 400 [facility] [place] cheng [address] [place], Pacer Clinic [address] [facility] [place] [phone] 02/04/2025 12:00 PM EDT Home Visit Care at Home [address] [place], [place] [phone] Carol Mathew PA-C [address] [place], [place] [phone] Scheduled Procedures Name Priority Associated Diagnoses Date/Ti [...] Additional history exists CKD PHOS USE SMARTSET 70534 08/22/202408/05, 08/20/2023, 11/07/2022, Additional history exists HbA1c 10/14/2024 04/16/2024, 1212/2022, 04/01/2023 Albumin/Creatinine Ratio 12/05/2024 12/06/2023, 03/06 Adult Wellness Visit 02/03/2025 02/04/2024, 02/29/20 23 Depression Screening 02/03/2025 02/04/2024, 12/10/19 24 DXA Scan 04/22/2025 04/22/2023, 04/05, 12/25/2018, Additional history exists CKD HGB USE SMARTSET 52918 05/06/202505/06, 05/06/2024, 03/02/2024, Additional history exists Pneumococcal Vaccine: 65+ Years Completed 02/01/2016, 10/27/2002 VITAMIN D LEVEL ONCE IN A LIFETIME-USE SMARTSET# 31824 Completed 04/16/2024, 09/16/2023, 10/20/2019, Additional history exists [...] this encounter Medical Devices Implanted Type Area Last Inserter Device Identifier Shelf Expiration Date Model / Serial / Lot Implant System, Trim-It Drill Pin [id number](.078" X 4" Implanted:Qty: 1 on 10/10/2017 by Sydney Castelan DPM at OR [facility] Right: Toe 04/04/2019 AR-4152DS / / [id number] Medtronic Attesta Surescan Pacemaker Implanted:Qty: 1 on 06/09/2020 by Chanel Lin DO at OR [facility] Left: Chest 08/01/2021 ATSR01 / [id number] / Nail Gamma3 Left [id number] - [id number] Implanted:Qty: 1 on 01/20/2021 by Alli Townsend MD at OR [facility] Left: Hip MILAN : TRAUMA 12/03/2023 6108-342 0S / / [id number] Screw Lag 10.5x95mm - [id number] Implanted:Qty: 1 on 01/20/2021 by Alli Townsend MD at OR [facility] Left: Hip MILAN : TRAUMA 11/02/2025 3060-009 5S / / [id number] Screw T2 Alpha Lock 5x47.5mm - [id number] Implanted:Qty: 1 on 01/20/2021 by Alli Townsend MD at OR [facility] Left: Hip MILAN : TRAUMA 05/04/2029 2360-504 7S / / [id number] documented as of this encounter Advance Directives Documents on File Type Date Recorded Patient Oil Developer Expl anation POLST 07/15/2023 [place] OR [facility] FOR LIFE-SUSTAINING [...] First Alternate Health Care Agent Care Teams Fluorescent Solution Mixer Relationship Specialty Start Date End Date Amor Pate MD [address] [place] [address] [phone] PCP - General Family Medicine 12/06/22 documented as of this encounter
--- OUTSIDE RECORDS SUMMARY | 2024-08-18 16:19 | External Medical Summary ---
Author Name Unknown Address Unknown Organization K01:LABORATORY [facility] - [address] [place] [address] Laboratory Report Ordering Provider Test Date Status LUIS YUAN 05/06/2024 11:39:06 Final Observation Date Value Abnormality Reference (Units ) Status Iron 05/06/2024 11:39:06 69 33-151 (ug /dL) Final Iron-binding capacity 05/06/2024 11:39:06 276 250-425 (ug/dL) Final Transferrin Sat % 05/06/2024 11:39:06 25 15 -55 (%) Final Performing Location LABORATORY C - [address] [place] [address]
--- OUTSIDE RECORDS SUMMARY | 2024-08-18 16:19 | External Medical Summary | Summary of Care ---
Author Name Unknown Organization [facility] Address [address] [place] [address] Phone [phone] Care Team Providers Care Manager Of Supply Chain Name Role Phone Amor Pate MD Primary Care Provider [phone] Reason for Visit * Reason Onset Date Comments Information 05/05/2024 Encounter Details Date Type Department Care Team (Late st Contact Info) Description 05/05/2024 Telephone [facility] [address] [place], [place] [id number] [facility] [address] [place] [address] Information (////) Allergies No known active allergiesdocumented as of this encounter (statuses as of 05/05/2024) Medications Medication Sig Dispensed Refills Start Date [...] Tablet 07/14/2023 Active Biotin 1000 MCG Oral TabletIndications: Routine gynecological examination Take 1 Tablet by mouth in the morning. 30 Tablet 07/14/2023 Active Calcium-Magnesium- Vitamin D ER 600-40-500 MG-MG-UNIT [...] Tablet by mouth in the morning. Active rOPINIRole HCl 0.25 MG Oral Tablet (Requip)Indication s:Tremors of nervous system Take 1 Tablet by mouth in the morning and 1 Tablet in the evening. 180 Tablet 1 11/19/2023 Active Atorvastatin Calcium 20 MG Oral Tablet (Lipitor)Indicatio ns:Atherosclerosis of aorta (HCC) Take 1 Tablet by mouth daily. 90 Tablet 3 11/19/2023 Active Metoprolol Succinate ER 25 MG Oral Tablet Extended Release 24 Hour (toPROL XL) Take 0.5 Tablets by mouth in the morning. 45 Tablet 3 12/25/2023 Active Nystatin 751641 UNIT/GM External CreamIndications:C andidal intertrigo Apply topically to affected area 2 times a day. To affacted area for two weeks. 15 g 2 12/31/2023 Active Omeprazole 20 MG Oral Capsule Delayed Release (PriLOSEC)Indicati ons:GERD (gastroesophageal reflux disease) Take 1 capsule by mouth in the morning 90 Capsule 01/07/2024 Active Spironolactone 25 MG Oral Tablet (Aldactone)Indicat [...] left knee joint once. 3 mL 04/14/2024 4 Discontinue d(Medicatio n List Clean Up) documented as of this encounter (statuses as of 05/05/2024) Active Problems Problem Noted Date Diagnosed Date [...] at this time. 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 0 08/28/2010 [...] patient does not have a Power of Dairy Technician or Advanced Directives in place at this [...] as of this encounter (statuses as of 05/05/2024) Resolved Problems Problem Noted Date Diagnosed Date [...] as of this encounter (statuses as of 05/05/2024) Immunizations Name Administration Dates Next Due COVID-19 mRNA, LNP-s, No Pre serve, 2-Dose Series (Pfizer) 10/26/2020,09/30/2020 Pneumococcal Conjugate Vacc, 13 Valent (Prevnar) 02/01/2016 Pneumococcal Polysaccharide PPV23 (Pneumovax) 10/27/2002 Seasonal Influenza Vac., MDV , IM, 0.5 mL (Fluzone) 04/26/2014,04/23/2013,04/24/2012,04/25,04/25/2010,05/24/2009,05/25/2008 ,05/07/2007,06/22/2006,07/04/2005,05/06,06/01/2002 Seasonal Influenza, PF, 6 M & above, [...] encounter Miscellaneous Notes * Telephone Encounter - [facility] - 05/05/2024 9:42 AM EDT Request to find for SN I reached out to Dana [facility] and am waiting her response if they can take on. Veronica got back to me and said that [facility] had her recently to maybe call them. I called Francisco [email or web address]@ and talked to Nicolette who said they just dc her form them on 04/09 and are not willing to take back as son was other republican to assist in her care the off days that they werent there and he didn't do anything with her. She mostly sits in a chair all day and night. They declined so I went back to vivi and explained and Veronica is sending ot the [facility] office to see if they would be willing to take her on given the circumstances Veronica got back to me and they declined as a safety risk as well Will try others in this area Called Olvin and Moriah asked me to fax all docs to her@[phone] as they go to [place] andwill be willing to review documented in this encounter Plan of Treatment Upcoming Encounters Date Type Department Care Team (Late st Contact Info) Description 05/06/2024 8:10 AM EDT Laboratory Lab Mobile Phlebotomy [facility] [address] [place] [place] [address] [facility], [facility] Mobile Home Draw [address] [place] [address] 05/07/2024 6:00 AM EDT Anticoagulation Centralized Clinical Pharmacy Services, Derrek Denton [address] [place] [address] [place] [address] [facility], [address] [place] [address] 05/11/2024 12:50 PM EDT Office Visit Dermatology, [place] Caballero [address] [place] [address] Marilyn Ozuna PA-C [address] [place] [address] 05/28/2024 1:00 PM EDT Scheduled Telephone [facility], [facility] [address] [place] [address] Cyndie Hilton, LATIA [address] [place] [address] 06/01/2024 5:30 PM EDT Home Visit [facility] [place], [facility] [address] [place] [address] Allison Young RN [address] [place] [address] 06/17/2024 11:00 AM EST Telemedicine Hematology/Oncology, [facility] 400 [place] [address] Billy Basurto MD [address] [place] [phone] 07/10/2024 1:40 PM EST [facility] Visit [facility] [address] [place] [address] Kayla Thompson CRNP [address] [place] [address] Zohaib Castillo, Community Health Director Medical [address] [place] [address] 07/14/2024 12:00 PM EST Office Visit Gastroenterology, [facility] [address] [place] [address] Rashida Jerome PA-C 310 [place] [address] 08/18/2024 3:30 PM EST Office Visit Otolaryngology, [address] [place] [address] [place] [address] Hema Hercules PA-C [address] [place] [address] 08/26/2024 5:40 PM EST Office Visit Family [facility], [place] [address] [place] [phone] Amor Pate MD [address] [place] [address] 09/10/2024 12:50 PM EST Office Visit Dermatology, [address] [place] [address] [place] [address] Marilyn Ozuna PA-C [address] [place] [address] 12/31/2024 1:00 PM EDT Cardiac Studies Cardiology, [place] 400 [facility] [place] [address] [place] 400 [facility] [place] [address] 02/04/2025 12:00 PM EDT Home Visit Care at Home [address] [place] [address] Carol Mathew PA-C [address] [place], [place] [id number] Scheduled Procedures Name Priority Associated Diagnoses Date/Ti [...] Vaccine (3 - season) 2024 10/26/2020, 09/30/2020 Influenza Vaccine (FLU shot) (#1) 2024 04/29/2023, 05/28/2022, 05/18/2021, Additional history exists Diabetic Eye Exam 06/19/2024 06/19/2023, , 01/12/2019, Additional history exists CKD PHOS USE SMARTSET 64203 08/22/202408/05, 08/20/2023, 11/07/2022, Additional history exists HbA1c 10/14/2024 04/16/2024, 1212/2022, 04/01/2023 Albumin/Creatinine Ratio 12/05/2024 12/06/2023, 03/06 Adult Wellness Visit 02/03/2025 02/04/2024, 02/29/20 23 Depression Screening 02/03/2025 02/04/2024, 12/10/19 24 CKD HGB USE SMARTSET 16834 03/02/202503/02, 03/02/2024, 02/17/2024, Additional history exists DXA Scan 04/22/2025 04/22/2023, 04/05, 12/25/2018, Additional history exists Pneumococcal Vaccine: 65+ Years Completed 02/01/2016, 10/27/2002 VITAMIN D LEVEL ONCE IN A LIFETIME-USE SMARTSET# 91372 Completed 04/16/2024, 09/16/2023, 10/20/2019, Additional history exists HPV (Gardasil) Vaccine Aged Out No lo nger eligible based on patient's age to complete this topic Hepatitis B Vaccine Aged Out No longe r eligible based on patient's age to complete this topic MENINGOCOCCAL (MENACTRA/MENVEO) Aged Out No longer eligible based on patient's age to complete this topic documented as of this encounter Medical Devices Implanted Type Area Independent Living Specialist Device Identifier Shelf Expiration Date Model / Serial / Lot Implant System, Trim-It Drill Pin [id number](.078" X 4" Implanted:Qty: 1 on 10/10/2017 by Sydney Castelan DPM at OR [facility] Right: Toe 04/04/2019 AR-[id number] / / [id number] Medtronic Attesta Surescan Pacemaker Implanted:Qty: 1 on 06/09/2020 by Chanel Lin DO at OR [facility] Left: Chest 08/01/2021 ATSR01 / [id number] / Nail [id number] Left [id number] - [id number] Implanted:Qty: 1 on 01/20/2021 by Alli Townsend MD at OR [facility] Left: Hip MILAN : TRAUMA 12/03/2023 3525-034 0S / / [id number] Screw Lag 10.5x95mm - [id number] Implanted:Qty: 1 on 01/20/2021 by Alli Townsend MD at OR [facility] Left: Hip MILAN : TRAUMA 11/02/2025 3060-009 5S / / [id number] Screw T2 Alpha Lock 5x47.5mm - [id number] Implanted:Qty: 1 on 01/20/2021 by Alli Townsend MD at OR [facility] Left: Hip MILAN : TRAUMA 05/04/2029 2360-504 7S / / [id number] documented as of this encounter Advance Directives Documents on File Type Date Recorded 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
--- OUTSIDE RECORDS SUMMARY | 2024-08-18 16:19 | External Medical Summary | Summary of Care ---
Author Name Unknown Organization [facility] Address [address] [place] [address] Phone [phone] Care Team Providers Care Account Executive Name Role Phone Carlos Alberto Murrieta MD Primary Care Provider [phone] Reason for Visit * Reason Comments eRx-Medication Refill Encounter Details Date Type Department Care Team (Late st Contact Info) Description 05/04/2024 Refill [facility], [facility] [address] [place] [address] Carlos Alberto Murrieta MD [address] [place] [address] Tremors of nervous system Allergies No known active allergiesdocumented as of [...] use otc ) 30 Tablet 3 Active Sertraline HCl 50 MG Oral Tablet (Zoloft)Indication s:Anxiety about health Take 1 Tablet by mouth in the morning. 30 Tablet 5 4 Active Folic Acid 0.8 MG Oral Capsule [...] morning. 45 Tablet 3 4 Active Nystatin 615898 UNIT/GM External CreamIndications:C andidal intertrigo Apply topically [...] [facility] 90 Tablet 1 4 Active rOPINIRole HCl 0.25 MG Oral Tablet (Requip)Indication s:Tremors of nervous system TAKE 1 TABLET BY MOUTH IN THE MORNING AND 1 IN THE EVENING 180 Tablet 4 Active rOPINIRole HCl 0.25 MG Oral [...] multicystic lesion of the pancreas CEA, FLUID 21551.0 ng/mL Final COMMENT Final The reference range [...] Last Assessment & Plan: S/p pacemaker senior care current use of anticoagulant therapy 0 [...] patient does not have a Power of Chain Link Fence Installer or Advanced Directives in place at [...] Encounter - Carlos Alberto Murrieta MD - 05/06/2024 4:42 PM EDTSigned Prescriptions: Disp Refills rOPINIRole HCl 0.25 MG Oral Tablet (Requip)180 Ta*0 Sig: TAKE 1 TABLET BY MOUTH IN THE MORNING AND 1 IN THE EVENING Authorizing Provider: CARLOS ALBERTO MURRIETA * Telephone Encounter - Geovanna Miles LPN - 05/06/2024 4:41 PM EDTPending Prescriptions: Disp Refills rOPINIRole HCl 0.25 MG Oral Tablet 180 Ta*0 Sig: TAKE 1 TABLET BY MOUTH IN THE MORNING AND 1 IN THE EVENING * Telephone Encounter - Geovanna Miles LPN - 05/06/2024 4:41 PM EDT Did you pend patient's preferred pharmacy and medication before forwarding?yes Pharmacy: [id number] [id number] Pending Prescriptions: Disp Refills rOPINIRole HCl 0.25 MG Oral Tablet (Requi*180 Ta*0 Sig: TAKE 1 TABLET BY MOUTH IN THE MORNING AND 1 IN THE EVENING Last Visit: Visit date not found (in office), 04/01/2024 (telemedicine) Next Visit: 06/01/2024 If no future appointments scheduled, and last appointment is greater than a year ago, please schedule patient for a follow-up appointment Last date the medication was ordered: 11/19/23 Is this request for a controlled substance?No [...] 11:34 AM HGBA1C 5.6 04/16/2024 08:27 AM Geovanna Miles LPN [facility] 05/06/2024,4:41 PM * Telephone Encounter - Aleksandra Cuevas RPh - 05/04/2024 9:38 PM EDT Pending Prescriptions: Disp Refills rOPINIRole HCl 0.25 MG Oral Tablet 180 Ta*0 Sig: TAKE 1 TABLET BY MOUTH IN THE MORNING AND 1 IN THE EVENING documented in this encounter Plan of Treatment Upcoming Encounters Date Type Department Care Team (Late st Contact Info) Description 05/07/2024 6:00 AM EDT Anticoagulation [facility] Clinical Pharmacy Services, Derrek Denton [address] [place] [address] [place] [address] [facility], [address] [place] [address] 05/11/2024 12:50 PM EDT Office Visit Dermatology, [place] [place] [address] [place] [address] Marilyn Ozuna PA-C [address] [place] [address] 05/28/2024 1:00 PM EDT Scheduled Telephone [facility], [facility] [address] [facility] [place] [address] Cyndie Hilton RDN [address] [facility] [place] [address] 06/01/2024 5:30 PM EDT [facility] Visit [facility], [facility] 132 [facility] [place] [address] Allison Young RN 132 [facility] [place] [address] 06/17/2024 11:00 AM EST Telemedicine Hematology/Oncology, [facility] [address] [place] [address] Billy Basurto MD [address] [place] [address] 07/10/2024 1:40 PM EST Home Visit [facility], [facility] 132 [facility] [place] [address] Kayla Thompson CRNP 132 [facility] [place] [address] Zohaib Castillo, Community Health Customer Engineer [address] [place] [address] 07/14/2024 12:00 PM EST Office Visit Gastroenterology, [address] [place] [address] [place] [phone] Rashida Jerome PA-C [address] [place] [address] 08/18/2024 3:30 PM EST Office Visit Otolaryngology, [place] [address] [place] [address] Hema Hercules PA-C [address] [place] [address] 08/26/2024 5:40 PM EST Office Visit [facility], [place] [address] [phone] Carlos Alberto Murrieta MD [address] [facility] [address] [facility] [address] 09/10/2024 12:50 PM EST Office Visit Dermatology, [place] [address] [place] [address] Marilyn Ozuna PA-C [address] [place] [address] 11/03/2024 3:00 PM EDT Office Visit Cardiology, [place] [address] [place] [address] Stephanie Ramos PA-C 400 [facility] [address] 12/31/2024 1:00 PM EDT Cardiac Studies Cardiology, [place] 400 [facility] [address] Lucita Singh 400 [facility] [address] 02/04/2025 12:00 PM EDT Home Visit Care at Home [address] [place] [address] Carol Mathew PA-C [address] [place] [address] Scheduled Procedures Name Priority Associated Diagnoses Date/Ti [...] Additional history exists CKD PHOS USE SMARTSET 12968 08/22/202408/05, 08/20/2023, 11/07/2022, Additional history exists HbA1c 10/14/2024 04/16/2024, 12/0 12/2022, 04/01/2023 Albumin/Creatinine Ratio 12/05/2024 12/06/2023, 03/06 Adult Wellness Visit 02/03/2025 02/04/2024, 02/29/20 23 Depression Screening 02/03/2025 02/04/2024, 12/10/19 24 DXA Scan 04/22/2025 04/22/2023, 04/05, 12/25/2018, Additional history exists CKD HGB USE SMARTSET 55673 05/06/202505/06, 05/06/2024, 03/02/2024, Additional history exists Pneumococcal Vaccine: 65+ Years Completed 02/01/2016, 10/27/2002 VITAMIN D LEVEL ONCE IN A LIFETIME-USE SMARTSET# 71745 Completed 04/16/2024, 09/16/2023, 10/20/2019, Additional history exists [...] this encounter Medical Devices Implanted Type Area Liquor Inspector Device Identifier Shelf Expiration Date Model / Serial / Lot Implant System, Trim-It Drill Pin [id number](.078" X 4" Implanted:Qty: 1 on 10/10/2017 by Sydney Castelan DPM at OR [facility] Right: Toe 04/04/2019 AR-[id number] / / [id number] [id number] Medtronic Attesta Surescan Pacemaker Implanted:Qty: 1 on 06/09/2020 by Chanel Lin DO at OR [facility] Left: Chest 08/01/2021 ATSR01 / [id number] / Nail [id number] Left [id number] - [id number] Implanted:Qty: 1 on 01/20/2021 by Alli Townsend MD at OR [facility] Left: Hip MILAN : TRAUMA 12/03/2023 3525-034 0S / / [id number] Screw Lag 10.5x95mm - [id number] Implanted:Qty: 1 on 01/20/2021 by Alli Townsend MD at OR [facility] Left: Hip MILAN : TRAUMA 11/02/2025 3060-009 5S / / [id number] Screw T2 Alpha Lock 5x47.5mm - [id number] Implanted:Qty: 1 on 01/20/2021 by Alli Townsend MD at OR [facility] Left: Hip MILAN : TRAUMA 05/04/2029 2360-504 7S / / [id number] documented as of this encounter Visit Diagnoses Diagnosis Tremors of nervous system Abnormal involuntary movements documented in this encounter Advance Directives Documents on File Type Date Recorded 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
--- OUTSIDE RECORDS SUMMARY | 2024-08-18 16:19 | External Medical Summary ---
Author Name Unknown Address Unknown Organization K1F:LABORATORY [facility] - [address] [place] [address] Ave. [place] [address] Laboratory Report Ordering Provider Test Date Status LUIS YUAN 05/06/2024 11:39:06 Final Observation Date Value Abnormality Reference (Units ) Status WBC, Total 05/06/2024 11:39:06 4.32 4.00-10.80 (K/uL) Final RBC 05/06/2024 11:39:06 3.34 3.85-5.15 (M/uL) Final Hemoglobin 05/06/2024 11:39:06 10.6 Below low normal 12.0-15.3 (g/dL) Final HCT 05/06/2024 11:39:06 34.1 Below low normal 36.0-45.2 (%) Final MCV 05/06/2024 11:39:06 102.1 81.5-97.5 (fL) Final MCH 05/06/2024 11:39:06 31.7 27.0-34.0 (pg) Final MCHC 05/06/2024 11:39:06 31.1 32.0-36.0 (g/dL) Final RDW 05/06/2024 11:39:06 14.0 11.5-15.5 (%) Final Platelets 05/06/2024 11:39:06 146 140-400 (K/uL) Final MPV 05/06/2024 11:39:06 13.0 6.6-11.1 (fL) Final Nucleated erythrocytes/100 leukocytes [Ratio] in Blood by Automated count 05/06/2024 11:39:06 0 <=0 (/100 WBCs) Final Performing Location [facility] - [address] [place] [address]
--- OUTSIDE RECORDS SUMMARY | 2024-08-18 16:19 | External Medical Summary ---
Author Name Unknown Address Unknown Organization K1F:[facility]ORY [facility] - 400 [facility] [place] [address] Laboratory Report Ordering Provider Test Date Status LUIS YUAN 05/06/2024 11:39:06 Final Observation Date Value Abnormality Reference (Units ) Status SYNC LEUKOCYTES IN BLOOD BY AUTOMATED COUNT 05/06/2024 11:39:06 4.32 4.00-10.80 (K/uL) Final Segs 05/06/2024 11:39:06 64.5 40.0-75.0 (%) Final Lymphs % 05/06/2024 11:39:06 22.0 18.0-42.0 (%) Final Monos 05/06/2024 11:39:06 10.2 1.0-11.0 (%) Final Eosinophils 05/06/2024 11:39:06 2.8 0.0-6.0 (%) Final Basos 05/06/2024 11:39:06 0.5 0.0-2.0 (%) Final Immature Granulocyte, Percent 05/06/2024 11:39:06 0.0 0.0-2.0 (%) Final Absolute Segs 05/06/2024 11:39:06 2.79 1.80-7.70 (K/uL) Final Lymphs, absolute 05/06/2024 11:39:06 0.95 Below low normal 1.00-4.80 (K/ul) Final Monos, Abs 05/06/2024 11:39:06 0.44 0.00-1.10 (K/uL) Final Eos, Abs 05/06/2024 11:39:06 0.12 0.00-0.70 (K/uL) Final Basos, Abs 05/06/2024 11:39:06 0.02 0.00-0.20 (K/uL) Final Immature Granulocytes, Number 05/06/2024 11:39:06 0.00 0.00-0.20 (K/uL) Final Performing Location LAB[facility]ORY [facility] - [facility] [address] [place] [address]
--- OUTSIDE RECORDS SUMMARY | 2024-08-18 16:19 | External Medical Summary ---
Author Name Unknown Address Unknown Organization K1F:LAB[facility]ATORY [facility] - 400 [facility] [place] [address] Laboratory Report Ordering Provider Test Date Status LUSI YUAN 05/06/2024 11:39:06 Final Observation Date Value Abnormality Reference (Units ) Status BUN 05/06/2024 11:39:06 20 6-20 (mg/dL) Final Creatinine 05/06/2024 11:39:06 0.7 0.5-1.0 (mg/dL) Final Glomerular filtration rate/1.73 sq M.predicted [Volume Rate/Area] in Serum, Plasma or Blood by Creatinine-based formula (CKD-EPI) 05/06/2024 11:39:06 78 >=60 (mL/min) Final eGFR is calculated based on the CKD-EPI 2020 equation. Sodium 05/06/2024 11:39:06 143 135-146 (m mol/L) Final Potassium 05/06/2024 11:39:06 3.9 3.5-5.1 (m mol/L) Final Cl 05/06/2024 11:39:06 104 98-107 (mm ol/L) Final CO2 05/06/2024 11:39:06 32 22-32 (mmo l/L) Final Anion gap 05/06/2024 11:39:06 7 7-15 (mmol /L) Final Glucose 05/06/2024 11:39:06 143 Above high normal 70 -120 (mg/dL) Final Albumin 05/06/2024 11:39:06 4.2 3.8-5.0 (g /dL) Final AST (Aspartate aminotransferase) 05/06/2024 11:39:06 21 10-35 (U/L) Fin al Alk Phos 05/06/2024 11:39:06 84 35-130 (U/ L) Final Bilirubin, Total 05/06/2024 11:39:06 0.5 <=1 .2 (mg/dL) Final Calcium 05/06/2024 11:39:06 9.4 8.4-10.2 ( mg/dL) Final Protein 05/06/2024 11:39:06 6.4 6.0-8.3 (g /dL) Final ALT (Alanine aminotransferase) 05/06/2024 11:39:06 12 10-35 (U/L) Stalin alanis Performing Location [facility] - [address] [place] [address] [place] [address]
--- OUTSIDE RECORDS SUMMARY | 2024-08-18 16:19 | External Medical Summary | Summary of Care ---
Author Name Unknown Organization [facility] Address [address] [place] [address] Phone [phone] Care Team Providers Care Associate Financial Representative Name Role Phone Amor Pate MD Primary Care Provider [phone] Reason for Visit * Reason Onset Date Comments Follow Up Rm # 2 Medication Administration 05/05/2024 Flu an d/or Pneumo Inj Encounter Details Date Type Department Care Team (Late st Contact Info) Description 05/05/2024 2:00 PM EDT [facility] [address] [place] [address] Stephanie Ramos PA-C [address] [place] [address] Chronic atrial fibrillation (HCC)*; Cardiac pacemaker in situ; Sinoatrial node dysfunction (HCC); Chronic heart failure with preserved ejection fraction (HCC); Nonrheumatic mitral valve regurgitation; Need for prophylactic vaccination and inoculation against influenza Allergies No known active allergiesdocumented as of [...] morning. 45 Tablet 3 12/25/2023 Active Nystatin 521389 UNIT/GM External CreamIndications:C andidal intertrigo Apply topically [...] multicystic lesion of the pancreas CEA, FLUID 30924.0 ng/mL Final COMMENT Final The reference range [...] 06/18/2013 Last Assessment & Plan: S/p pacemaker halfway current use of anticoagulant therapy 0 08/28/2010 [...] does not have a Power of Director Medicare Sales or Advanced Directives in place at this [...] 04/01/2024 Does the household have a re lar [...] Sign Reading Time Taken Comments Blood Pressure 102/60 05/05/2024 1:55 PM EDT Pulse 64 05/05/2024 1:55 PM EDT Temperature - - Respiratory Rate - - Oxygen Saturation - - Inhaled Oxygen Concentration - - Weight 67.1 kg (148 lb) 05/05/2024 1:55 PM EDT p er pt Height - - Body Mass Index 23.9 02/12/2024 2:38 PM EDT documented in this encounter Functional Status Functional [...] No 08/21/2023 documented as of this encounter Patient Instructions * Patient Instructions* Stephanie Ramos PA-C - 05/05/2024 2:21 PM EDT -Take metoprolol at bedtime. documented in this encounter Progress Notes * Nicole Mckinley NRCMA - 05/05/2024 2:36 PM EDT PRE - ADMINISTRATION DOCUMENTATION Are you experiencing any cold symptoms or fever? No Have you had Guillain-Fairbury Syndrome (an illness that causes paralysis) within the last 6 weeks? No Have you had the flu shot in the past? YES Have you ever had a reaction to the flu shot? No MARCIA Giordano, 05/05/2024 2:36 PM Immunization Administration Documentation Time Out Procedure Performed: Yes Patient Identified (Ask Name/Date of ): Yes Does the patient have a fever greater than 101 degrees today? No Patient allergic to latex? No VFC Stock: No Immunization(s) verified: Yes, Immunization Name: Flu, VIS Sheet(s) given: Yes Verified Side and Site: Yes Verified Shot(s) with Parent(s)/Patient: Yes * Stephanie Ramos PA-C - 05/05/2024 2:11 PM EDT 05/05/2024 Cardiology Follow Up Primary Sanding Supervisor: Dr. Schofield Cardiac Problems: Permanent AFIB TBS -single-chamber PPM (2012) -gen change (2019 ) Labile hypertension Moderate mitral regurgitation HFpEF HLD Pulmonary HTN HPI: Zulma Villar is a 88 year old female who presents for routine follow-up. Accompanied by her aide, Maite today Utilized a wheelchair. Functional capacity is limited Lives at home with 24 hour caregivers Has [facility] nurses 1-2x per month Feels breathing is at baseline. Completed PT and OT recently. Feels she is able to do more ADLs independently Instructed by home nurse to take lasix a couple days last week due to LE edema. She does not want to take this medication daily due to urination. Does not take it prior to appointments. States she is compliant with all medications and endorses no side effects today. REVIEW OF SYSTEMS: See HPI for pertinent positives. All others negative other than those noted in the HPI. CONSTITUTIONAL: No change in weight, No weakness, No fatigue, No fevers, No sweats or chills. PULMONARY: No cough, sputum, or hemoptysis, No wheezing, No shortness or breath and No recent change in breathing. CARDIOVASCULAR: No chest pain, No edema, No dyspnea on exertion, No palpitations and No syncope. GASTROINTESTINAL: No abdominal pain, No change in bowel habits, No significant heartburn, No nausea, No vomiting, No diarrhea, No constipation, No blood in stools or black tarry stools. No dysphagia. HEMATOLOGIC: No abnormal bleeding and No bruising. NEUROLOGICAL: Normal balance, No headaches and No weakness. Review of patient's allergies indicates: No Known Allergies Current Outpatient Medications Medication Sig Dispense Refill [...] tab Saturday and only. 8 Tablet 0 Vitamin D (Cholecalciferol) 25 MCG [...] as needed (edema, swelling). 30 Tablet 0 Vitamin B-12 500 MCG Oral Tablet (vitamin B-12) Take one tab twice a week 26 Tablet 0 Biotin 1000 MCG Oral Tablet Take 1 Tablet by mouth in the morning. 30 Tablet 0 Bhzvwka-Btwcznvnm-Tqntlwd D ER 600-40-500 MG-MG-UNIT Tablet Extended Release 24 Hour one daily (mayuse otc ) 30 Tablet 0 Sertraline HCl 50 MG Oral Tablet (Zoloft) Take 1 Tablet by mouth in the morning. 30 Tablet 5 Folic Acid 0.8 MG Oral Capsule Take 1 Tablet by mouth in the morning. rOPINIRole HCl 0.25 MG Oral Tablet (Requip) Take 1 Tablet by mouth in the morning and 1 Tablet in the evening. 180 Tablet 1 Atorvastatin Calcium 20 MG Oral Tablet (Lipitor) Take 1 Tablet by mouth daily. 90 Tablet 3 Metoprolol Succinate ER 25 MG Oral Tablet Extended Release 24 Hour (toPROL XL) Take 0.5 Tablets by mouth in the morning. 45 Tablet 3 Omeprazole 20 MG Oral Capsule [...] EVENING DIRECTEDBY COUMADIN CLINIC 90 Tablet 1 Acetaminophen 325 MG Oral Tablet (Tylenol) Take 2 Tablets by mouth every 6 hours. 30 Tablet 0 DIURETIC TITRATION PLAN If no improvement on day 3, contact heart failure managing provider. 1 Each0 Nystatin 865340 UNIT/GM External Cream Apply topically to affected area 2 times a day. To affacted area for two weeks. 15 g 2 No current facility-administered medications for this visit. Past Medical History: Diagnosis Date A-fib (HCC) Anemia 03/05/2005 03/06/2005 cbc b12 ,folate nl 11/2004 during screening - 10.9 mcv 92 (uses no etoh) Anticoagulation management encounter 08/28/2010 ATRIAL FIBRILLATION new onset noted 08/28/10 rel to syncope 08/28/2010 03/11/2012 reg 06/12/2011 reg with occ extras 08/28/2010 new onset noted 08/28/10 rel to syncope Stress testing was nonischemic in November 2010 though with equivocal EKG response. BACKACHE NOS rt lower back with rad mid thigh - resolved with weight reduction 08/23/2003 07/18/2006 no sxs (since lost weight) Blepharitis c keratitis Blister of right foot 01/04/2024 Chest pain, non-cardiac neg nucl stress test 06/06 Cupping of optic disc 0.6/0.5 (10/08) Decubitus ulcer of sacral region, stage 2 (HCC) 03/31/2019 06/09/2019 resolved Dermatochalasis BUL Dyslipidemia, goal LDL below 100 Hematuria Hypernatremia 06/09/2019 06/09/2019 Mild Admits does not drink much fluid estimates 24 oz a day total Admits eating out and occasionally eating canned foods Will obtain repeat with urinary sodium and osmolality on 06/29 LOSS OF WEIGHT resolved 03/05/2005 08/27/2007 stable 07/18/2006 stable Congratulated on [place] diet 03/05/2005 -28 lb Pain in both feet 02/13/2017 02/13/2017 Ref to pod PALPITATIONS resolved 06/01/2002 08/31/2008 no sxs Paroxysmal atrial tachycardia (HCC) Senile cataract Solar purpura (HCC) 03/24/2018 Unequal blood pressure in upper extremities 06/12/2018 02/03/2019 On follow up measurements incl today blood pressure has been equal Wears dentures Wears glasses Family History Problem Relation Name Age of Onset Diabetes Mother Heart Disorder Mother [place] Diabetes Brother Cancer Sister leukemia,bone marrow, lymph nodes Heart attack Sister h/o [place] Diabetes Sister Lung Disorder Father emphysema Other (none) Father unaware of family hx of skin related ca or disease Arthritis Sister Diabetes Son Heart attack Daughter Heart disease Daughter Social History Socioeconomic History Marital status: Tobacco Use Smoking status: Never Smokeless tobacco: Never Vaping Use Vaping status: Never Used Substance and Sexual Activity Alcohol use: No Drug use: No Sexual activity: Not Currently Partners: Male Social History Narrative Lives with Retired Social Determinants of Health Financial Resource Strain: Low Risk (04/01/2024) Financial Resource Strain Do you have any trouble paying for your medications, or do you think you might in the future? (Adult - for ages 18 years and over): No Food Insecurity: No Food Insecurity (04/01/2024) Food Insecurity Do you need food for this week? (Adult - for ages 18 years and over): No Transportation Needs: No Transportation Needs (04/01/2024) Transportation Needs Do you have trouble getting a ride to medical visits or work? (Adult - for ages 18 years and over):Never True Has lack of transportation kept you from medical appointments, meetings, work, or from getting things needed for daily living? Check all that apply. (Adult - for ages 18 years and over): No Social Connections: Socially Integrated (04/01/2024) Social Connections How often do you feel lonely or isolated from those around you? (Adult - for ages 18 years and over): Never Housing Stability: Low Risk (04/01/2024) Housing Stability Do you currently live in a prison or have no steady place to sleep at night? (Adult - for ages 18 years and over): No Do you think you are at risk of becoming homeless? (Adult - for ages 18 years and over): No Are you homeless or worried that you might be in the future? (Adult - for ages 18 years and over): No OBJECTIVE/PHYSICAL EXAMINATION: BP 102/60 (BP Site: Left Arm, BP Position: Sitting, BP Cuff Size: Large) | Pulse 64 | Wt 67.1 kg (148 lb) Comment: per pt | BMI 23.90 kg/m | BSA 1.77 m Wt Readings from Last 3 Encounters: 05/05/24 67.1 kg (148 lb) 02/12/24 67.1 kg (148 lb) 12/10/23 68.1 kg (150 lb 3.2 oz) General: No acute distress. A+Ox3. HEENT: Normocephalic. Atraumatic. PERRL. EOMI. Conjunctiva and sclera clear. NECK: No carotid bruits. No JVD. Carotid upstrokes are brisk. Heart: RRR. S1 and S2 noted. No murmur. No rubs or gallops. PMI non displaced. Lungs: Clear to auscultation. No wheezes.No rhonchi. No rales. Abdomen: Normal bowel sounds. Soft. Nontender. No masses or organomegaly. No abdominal bruits. Extremities: +1 pitting BLE edema. No clubbing or cyanosis. Pulses: radial=2/4, posterior tibial=2/4, dorsalis pedis = 2/4. NEURO: No focal deficits. PSYCH: Appropriate affect and insight. DATA Labs & Imaging Reviewed Below: EKG 08/21/2023 Ventricular-paced rhythm 61bpm Device Check 03/22/2024 - Normal functioning single chamber pacemaker - Adequate battery - No mode switch episodes ECHO 05/25/2020 Calculated LV ejection Fraction = 59% (bi-plane method of discs). The left ventricular cavity size is normal. The LV wall thickness is normal. There is no left ventricular mural thrombus. The left ventricular wall motion is normal. Biatrial dilatation. Moderately elevated right ventricular systolic pressure. Similar finding when compared to study dated October 20, 2018. ASSESSMENT/PLAN: 88 year old year old female 1. Chronic atrial fibrillation (HCC) 2. Cardiac pacemaker in situ 3. Sinoatrial node dysfunction (HCC) -Heart rate is well controlled -Take metoprolol succinate 12.5mg daily at bedtime -Anticoagulated with coumadin. Denies abnormal bleeding/melena -Device check with stable findings. 4. Chronic heart failure with preserved ejection fraction (HCC) 5. Nonrheumatic mitral valve regurgitation -Patient appears euvolemic on examination, remains asymptomatic -No change in functional capacity which is limited at baseline. -Weight is stable. -Has mild BLE edema. Declined lasix 20mg daily. Prefers to take PRN -Will consider repeat echocardiogram at follow-up DISPOSITION: Follow up 6 months or if symptoms worsen/fail to improve. All questions were answered to the patients satisfaction. Patient advised to report to ED with any and all emergencies. The patient agrees to the above plan and will call with additional questions or concerns. Stephanie Ramos PA-C Cardiology[address] [address] I spent a total of 35 minutes on the date of service in preparation, delivery, and documentation ofthe care provided to Zulma Villar excluding any time spent in the performance of separately billed services. This chart was completed in part utilizing [employer] Speech Voice Recognition Software. Grammatical errors, random word insertions, pronoun errors, and incomplete sentences are an occasional consequence of this system due to software limitations, ambient noise, and hardware issues. Any formal questions or concerns about the content, text, or information contained within the body of this dictation should be directly addressed to the provider for clarification. documented in this encounter Nursing Notes * Nicole Mckinley, KENDRACMA - 05/05/2024 2:05 PM EDT Examination Room: 2 Name: Zulma Villar Date of : (1935). Reason for Visit: follow up Interim Hospitalization(s): none recently Problems/Concerns: no cardiac complaints today. Chest Pain/SOB: no CP or SOB. Medications were updated via: pt memory. [facility] is a way you can talk to your provider online through e-mail. Would you like to sign up? I can activate it for you? ALREADY ACTIVE Patient was instructed to not get up on the exam table until directed and assisted by their provider; patient is to remain seated in the chair/ wheelchair/ exam table for fall prevention and safety reasons. Patient is aware to have assistance to step down off exam table with personnel. Patient voiced full comprehension of instructions. documented in this encounter Plan of Treatment Upcoming Encounters Date Type Department Care Team (Late st Contact Info) Description 05/06/2024 8:10 AM EDT Laboratory Lab Mobile Phlebotomy [address] [place] [address] Gl, [facility] Mobile Home Draw [address] [place] [address] 05/07/2024 6:00 AM EDT Anticoagulation [facility], Derrek Denton [address] [place] [address] [place] [address] [place] [address] 05/11/2024 12:50 PM EDT Office Visit Dermatology, [facility] [address] [place] [address] Marilyn Ozuna PA-C [place] [address] 05/28/2024 1:00 PM EDT Scheduled Telephone [facility], [facility] [address] [facility] [place] [address] Cyndie Hilton RDN [address] [place] [address] 06/01/2024 5:30 PM EDT [facility] Visit [facility] [address] [facility] [place] [address] Allison Young RN [address] [place] [address] 06/17/2024 11:00 AM EST Telemedicine Hematology/Oncology, [facility] [address] [facility] [address] Billy Basurto MD [address] [place] [phone] 07/10/2024 1:40 PM EST [facility] [address] Kayla Thompson CRNP [address] [place] [address] Zohaib Castillo, [facility] Women'S Activities Adviser [address] [place] [address] 07/14/2024 12:00 PM EST Office Visit [facility]enterology, [facility] [phone] Rashida Jerome [facility]-C [facility] [address] 08/18/2024 3:30 PM EST Office Visit Otolaryngology, [place] [address] [place] [address] Hema Hercules PA-C [address] [place] [address] 08/26/2024 5:40 PM EST Office Visit Family [facility], [place] [address] [place] [phone] Amor Pate MD [address] [place] [address] 09/10/2024 12:50 PM EST Office Visit Dermatology, [place] [address] [place] [address] Marilyn Ozuna PA-C [address] [facility] [place] [address] 11/03/2024 3:00 PM EDT Office Visit Cardiology, [place] [address] [place] [address] Stephanie Ramos PA-C [address] [facility] [place] [address] 12/31/2024 1:00 PM EDT Cardiac Studies Cardiology, [place] [address] [facility] [place] [address] [facility] [address] [facility] [place] [address] 02/04/2025 12:00 PM EDT Home Visit Care at Home [address] [place] [address] Carol Mathew PA-C [address] [place] [address] Scheduled Procedures Name Priority Associated Diagnoses Date/Ti [...] Additional history exists CKD PHOS USE SMARTSET 88036 08/22/202408/05, 08/20/2023, 11/07/2022, Additional history exists HbA1c 10/14/2024 04/16/2024, 12/2022, 04/01/2023 Albumin/Creatinine Ratio 12/05/2024 12/06/2023, 03/06 Adult Wellness Visit 02/03/2025 02/04/2024, 02/29/20 23 Depression Screening 02/03/2025 02/04/2024, 12/10/19 24 CKD HGB USE SMARTSET 13040 03/02/202503/02, 03/02/2024, 02/17/2024, Additional history exists DXA Scan 04/22/2025 04/22/2023, 04/05, 12/25/2018, Additional history exists Pneumococcal Vaccine: 65+ Years Completed 02/01/2016, 10/27/2002 VITAMIN D LEVEL ONCE IN A LIFETIME-USE SMARTSET# 25903 Completed 04/16/2024, 09/16/2023, 10/20/2019, Additional history exists [...] this encounter Medical Devices Implanted Type Area Trim Carpenter Device Identifier Shelf Expiration Date Model / Serial / Lot Implant System, Trim-It Drill Pin [id number]" X 4" Implanted:Qty: 1 on 10/10/2017 by Sydney Castelan DPM at OR [facility] Right: Toe 04/04/2019 [id number] / / [id number] Medtronic Attesta Surescan Pacemaker Implanted:Qty: 1 on 06/09/2020 by Chanel Lin DO at OR [facility] Left: Chest 08/01/2021 [id number] / [id number] / Nail [id number] Left [id number] - [id number] Implanted:Qty: 1 on 01/20/2021 by Alli Townsend MD at OR [facility] Left: Hip MILAN : TRAUMA 12/03/2023 3525-034 [id number] / / [id number] Screw Lag 10.5x95mm - [id number] Implanted:Qty: 1 on 01/20/2021 by Alli Townsend MD at OR [facility] Left: Hip MILAN : TRAUMA 11/02/2025 [id number] / / [id number] Screw T2 Alpha Lock 5x47.5mm - [id number] Implanted:Qty: 1 on 01/20/2021 by Alli Townsend MD at OR [facility] Left: Hip MILAN : TRAUMA 05/04/2029 [id number] / / [id number] documented as of this encounter Visit Diagnoses Diagnosis Chronic atrial fibrillation (HCC)- Primary Atrial fibrillation Cardiac pacemaker in situ Sinoatrial node dysfunction (HCC) Sinoatrial node dysfunction Chronic heart failure with preserved ejection fraction (HCC) Nonrheumatic mitral valve regurgitation Need for prophylactic vaccination and inoculation against influenza documented in this encounter Advance Directives Documents on File Type Date Recorded Patient Protective Services Case Worker Expl anation POLST 07/15/2023 [place] [facility] FOR LIFE-SUSTAINING [...] First Alternate Health Care Agent Care Teams Associate Financial Representative Relationship Specialty Start Date End Date Amor Pate MD [address] [place] [address] PCP - General Family Medicine 12/06/22 documented as of this encounter
--- OUTSIDE RECORDS SUMMARY | 2024-08-18 16:19 | External Medical Summary ---
Author Name Unknown Address Unknown Organization K01:[facility] [place] [address] [facility] [address] Laboratory Report Ordering Provider Test Date Status LISSYMARZENAPIPE 05/06/2024 11:39:06 Final Observation Date Value Abnormality Reference (Units ) Status Ferritin 05/06/2024 11:39:06 94 13-150 (ng /mL) Final Postmenopausal women have hi gher ferritin levels than pre-menopausal women. The above reference interval is based on pre-menopausal women. Performing Location [facility] - [address] [facility] [address]
--- OUTSIDE RECORDS SUMMARY | 2024-08-18 16:19 | External Medical Summary | Summary of Care ---
Author Name Unknown Organization [facility] Address [address] [place] [address] Phone [phone] Care Team Providers Care Windows Admin Name Role Phone Amor Pate MD Primary Care Provider [phone] Reason for Visit * Reason Onset Date Comments Information 05/05/2024 Encounter Details Date Type Department Care Team (Late st Contact Info) Description 05/05/2024 Telephone [facility], [place] [address] [place], [place] [id number] [facility] Infante OSA [address] [place] [address] Information (////) Allergies No known [...] morning. 45 Tablet 3 12/25/2023 Active Nystatin 067813 UNIT/GM External CreamIndications:C andidal intertrigo Apply topically [...] multicystic lesion of the pancreas CEA, FLUID 87953.0 ng/mL Final COMMENT Final The reference range [...] 06/18/2013 Last Assessment & Plan: S/p pacemaker salvage determiner current use of [...] patient does not have a Power of Stretcher Leveler Operator Helper or Advanced Directives in place at this [...] Telephone Encounter - Sima Dallas RN - 05/05/2024 3:48 PM EDT Call received from [facility]. Unable to accept pt at this time due to high pt volume. * Telephone Encounter - Sierra Infante OSA - 05/05/2024 9:42 AM EDT Request to find HH for SN I reached out to Dana Harris form [facility] and am waiting her response if they can take on. Veronica got back to me and said that [facility] had her recently to maybe call them. I called [place] @ and talked to Nicolette who said they just dc her form them on 04/09 and are not willing to take back as son was other republican to assist in her care the off days that they werent there and he didn't do anything with her. She mostly sits in a chair all day and night. They declined so I went back to [facility] and explained and Veronica is sending ot the [facility] office to see if they would be willing to take her on given the circumstances Veronica got back to me and they declined as a safety risk as well Will try others in this area Called [facility] and Moriah asked me to fax all docs to [phone] as they go to [place] andwill be willing to review. Barber back from [facility] and they declined as well, forwarding to the care team to make aware of all declines and see if they know of anyone else who may take her in the area to try documented in this encounter Plan of Treatment Upcoming Encounters Date Type Department Care Team (Late st Contact Info) Description 05/06/2024 8:10 AM EDT Laboratory Lab Mobile Phlebotomy [facility] [address] [place] [address] [facility], [facility] Mobile Home Draw [address] [place] [address] Arrived 05/07/2024 6:00 AM EDT Anticoagulation [facility] Services, Derrek Denton [address] [place] [address] [place] [address] [place] [address] 05/11/2024 12:50 PM EDT Office Visit Dermatology, Adwoa Green [place] [address] [place] [address] [place] [address] Marilyn Ozuna PA-C [address] [place] [address] 05/28/2024 1:00 PM EDT Scheduled Telephone [facility], [facility] [address] [facility] [place] [address] Cyndie Hilton, RDN [address] [facility] [place] [address] 06/01/2024 5:30 PM EDT Home Visit [facility] [place], [facility] [address] [facility] [place] [address] Allison Young RN 132 [place] [address] 06/17/2024 11:00 AM EST Telemedicine Hematology/Oncology, [facility] [address] [place] [address] Billy Basurto MD [address] [place] [phone] 07/10/2024 1:40 PM EST Home Visit [facility], [facility] [address] [facility] [place] [address] Kayla Thompson CRNP 132 [facility] [place] [address] Zohaib Castillo [facility] Accounting Auditor [address] [place] [address] 07/14/2024 12:00 PM EST Office Visit Gastroenterology, [facility] [address] [place] [phone] Rashida Jerome PA-C [address] [facility] [address] 08/18/2024 3:30 PM EST Office Visit Otolaryngology, Adwoa LozadaFrancisco [address] [place] [address] Hema Hercules PA-C [address] [place] [address] 08/26/2024 5:40 PM EST Office Visit Family [facility], [place] [address] [place] [phone] Amor Pate MD [address] [place] [address] 09/10/2024 12:50 PM EST Office Visit Dermatology, [place]a [place] [address] [facility] 140 [place] [address] Marilyn Ozuna PA-C [address] [place] [address] 11/03/2024 3:00 PM EDT Office Visit Cardiology, [place] [address] [place] [address] Stephanie Ramos PA-C [address] [place] [address] 12/31/2024 1:00 PM EDT Cardiac Studies Cardiology, [place] [address] [place] [address] Lucita Singh [facility] [address] [place] [address] 02/04/2025 12:00 PM EDT [facility] [address] [facility] [address] Carol Mathew PA-C [address] [place], [place] [phone] Scheduled Procedures Name Priority Associated Diagnoses Date/Ti [...] Additional history exists CKD PHOS USE SMARTSET 15234 08/22/202408/05, 08/20/2023, 11/07/2022, Additional history exists HbA1c 10/14/2024 04/16/2024, 1212/2022, 04/01/2023 Albumin/Creatinine Ratio 12/05/2024 12/06/2023, 0803/2023 Adult Wellness Visit 02/03/2025 02/04/2024, 02/29/20 23 Depression Screening 02/03/2025 02/04/2024, 12/10/19 24 CKD HGB USE SMARTSET 01195 03/02/202503/02, 03/02/2024, 02/17/2024, Additional history exists DXA Scan 04/22/2025 04/22/2023, 04/05, 12/25/2018, Additional history exists Pneumococcal Vaccine: 65+ Years Completed 02/01/2016, 10/27/2002 VITAMIN D LEVEL ONCE IN A LIFETIME-USE SMARTSET# 29751 Completed 04/16/2024, 09/16/2023, 10/20/2019, Additional history exists [...] this encounter Medical Devices Implanted Type Area Family Service Center Director Device Identifier Shelf Expiration Date Model / Serial / Lot Implant System, Trim-It Drill Pin [id number]" X 4" Implanted:Qty: 1 on 10/10/2017 by Sydney Castelan DPM at OR [facility] Right: Toe 04/04/2019 AR-[id number] / / [id number] Medtronic Attesta Surescan Pacemaker Implanted:Qty: 1 on 06/09/2020 by Chanel Lin DO at OR [facility] Left: Chest 08/01/2021 ATSR01 / [id number] / Nail [id number] Left [id number] - [id number] Implanted:Qty: 1 on 01/20/2021 by Alli Townsend MD at OR [facility] Left: Hip MILAN : TRAUMA 12/03/2023 3525-034 0S / / [id number] Screw Lag 10.5x95mm - [id number] Implanted:Qty: 1 on 01/20/2021 by Alli Townsend MD at OR [facility] Left: Hip MILAN : TRAUMA 11/02/2025 3060-009 5S / / [id number] Screw T2 Alpha Lock 5x47.5mm - [id number] Implanted:Qty: 1 on 01/20/2021 by Alli Townsend MD at OR [facility] Left: Hip MILAN : TRAUMA 05/04/2029 2360-504 7S / / [id number] documented as of this encounter Advance Directives Documents on File Type Date Recorded Patient Dive Superintendent Expl anation POLST 07/15/2023 [place] OR [facility] FOR LIFE-SUSTAINING TREATMENT [...] First Alternate Health Care Agent Care Teams Windows Admin Relationship Specialty Start Date End Date Amor Pate MD 21 [place] [address] PCP - General Family Medicine 12/06/22 documented as of this encounter
--- OUTSIDE RECORDS SUMMARY | 2024-08-18 16:19 | External Medical Summary ---
Author Name Unknown Address Unknown Organization [id number]:LABORATORY [facility] - [facility] [place] [address] Laboratory Report Ordering Provider Test Date Status ANDREW HOOVER 05/06/2024 11:39:06 Final Please draw PT/INR every 1-4 weeks or as requested by the [facility]

Warfarin Therapy
INR: 2.0-3.0 conventional anticoagulation
INR: 2.5-3.5 high intensity anticoagulation Observation Date Value Abnormality Reference (Units ) Status PT 05/06/2024 11:39:06 22.4 Above high normal 11 .6-15.2 (seconds) Final INR 05/06/2024 11:39:06 2.0 Above high normal 0. 8-1.2 Final Performing Location [facility]ORY [facility] - [address] [place] [address]
--- OUTSIDE RECORDS SUMMARY | 2024-08-18 16:19 | External Medical Summary | Summary of Care ---
Author Name Unknown Organization [facility] Address [address] [place] [address] Phone [phone] Care Team Providers Care Assembler Motor Vehicle Name Role Phone Amor Pate MD Primary Care Provider [phone] Reason for Visit * Reason Onset Date Comments Information 05/05/2024 Encounter Details Date Type Department Care Team (Late st Contact Info) Description 05/05/2024 Telephone [facility] [address] [place], [place] [phone] Sierra Infante [facility] [address] [place] [address] Information (////) Allergies No known [...] morning. 45 Tablet 3 12/25/2023 Active Nystatin 105207 UNIT/GM External CreamIndications:C andidal intertrigo Apply topically [...] multicystic lesion of the pancreas CEA, FLUID 87790.0 ng/mL Final COMMENT Final The reference range [...] Last Assessment & Plan: S/p pacemaker superintendent terminal current use of anticoagulant therapy 0 [...] patient does not have a Power of Laser Cutter or Advanced Directives in place at this [...] 05/05/2024 3:48 PM EDT Call received from [facility]. Unable to accept pt at this time [...] recently to maybe call them. I called [place] @ and talked to Nicolette who said they just dc her form them on 04/09 and are not willing to take back as son was other alliance party to assist in her care the off days that they werent there and he didn't do anything with her. She mostly sits in a chair all day and night. They declined so I went back to [facility] and explained and Veronica is sending ot the [facility] office to see if they would be willing to take her on given the circumstances Veronica got back to me and they declined as a safety risk as well Will try others in this area Called [facility] and Moriah asked me to fax all docs to [phone] as they go to [place] andwill be willing to review documented in this encounter Plan of Treatment Upcoming Encounters Date Type Department Care Team (Late st Contact Info) Description 05/06/2024 8:10 AM EDT Laboratory Lab Mobile Phlebotomy [facility] [address] [place] [address] [facility], [facility] Mobile Home Draw [address] [place] [address] 05/07/2024 6:00 AM EDT Anticoagulation Centralized Clinical Pharmacy Services, Derrek Denton [address] [place] [address] [place] [address] Ccps, [address] [place] [address] 05/11/2024 12:50 PM EDT Office Visit Dermatology, Francisco Caballero [address] [place] [address] Marilyn Ozuna PA-C [address] [place] [address] 05/28/2024 1:00 PM EDT Scheduled Telephone [facility], [facility] [address] [facility] [place] [address] Yobani Cyndie Pantoja, RDN [address] [facility] [place] [address] 06/01/2024 5:30 PM EDT Home Visit [facility], [facility] 132 [place] [address] Allison Young RN [address] [place] [address] 06/17/2024 11:00 AM EST Telemedicine Hematology/Oncology, [facility] 400 [place] [address] Billy Basurto MD [address] [place] [phone] 07/10/2024 1:40 PM EST Home Visit [facility], [address] [place] [address] Kayla Thompson CRNP 132 [facility] [address] Zohaib Castillo [facility] Exercise Equipment Repair Technician [address] [place] [address] 07/14/2024 12:00 PM EST Office Visit Gastroenterology, [facility] [address] [place] [phone] Rashida Jerome PA-C [address] [place] [address] 08/18/2024 3:30 PM EST Office Visit Otolaryngology, Adwoa Francisco [place] [address] [place] [address] Hema Hercules PA-C [address] [place] [address] 08/26/2024 5:40 PM EST Office Visit Family [facility], [place] [address] [phone] Amor Pate MD 21 [place] [address] 09/10/2024 12:50 PM EST Office Visit Dermatology, [place]a [place] [address] 140 [place] [address] Marilyn Ozuna PA-C [address] [place] [address] 11/03/2024 3:00 PM EDT Office Visit Cardiology, [place] [address] [place] [address] Stephanie Ramos PA-C [address] [place] [address] 12/31/2024 1:00 PM EDT Cardiac Studies Cardiology, [place] [address] [place] [address] Francisco Pacedimitri [facility] [address] [place] [address] 02/04/2025 12:00 PM EDT Home Visit Care at Home [address] [facility] [phone] Carol Mathew PA-C [address] [facility] [phone] Scheduled Procedures Name Priority Associated Diagnoses Date/Ti [...] Additional history exists CKD PHOS USE SMARTSET 63853 08/22/202408/05, 08/20/2023, 11/07/2022, Additional history exists HbA1c 10/14/2024 04/16/2024, 1212/2022, 04/01/2023 Albumin/Creatinine Ratio 12/05/2024 12/06/2023, 03/06 Adult Wellness Visit 02/03/2025 02/04/2024, 02/29/20 23 Depression Screening 02/03/2025 02/04/2024, 12/10/19 24 CKD HGB USE SMARTSET 93957 03/02/202503/02, 03/02/2024, 02/17/2024, Additional history exists DXA Scan 04/22/2025 04/22/2023, 04/05, 12/25/2018, Additional history exists Pneumococcal Vaccine: 65+ Years Completed 02/01/2016, 10/27/2002 VITAMIN D LEVEL ONCE IN A LIFETIME-USE SMARTSET# 69939 Completed 04/16/2024, 09/16/2023, 10/20/2019, Additional history exists [...] this encounter Medical Devices Implanted Type Area Composition Molder Device Identifier Shelf Expiration Date Model / Serial / Lot Implant System, Trim-It Drill Pin [id number](.078" X 4" Implanted:Qty: 1 on 10/10/2017 by Sydney Castelan DPM at OR [facility] Right: Toe 04/04/2019 AR-4152DS / / [id number] Medtronic Attesta Surescan Pacemaker Implanted:Qty: 1 on 06/09/2020 by Chanel Lin DO at OR [facility] Left: Chest 08/01/2021 ATSR01 / [id number] / Nail [id number] Left [id number] - [id number] Implanted:Qty: 1 on 01/20/2021 by Alli Townsend MD at OR [facility] Left: Hip MILAN : TRAUMA 12/03/2023 3525-034 0S / / [id number] Screw Lag 10.5x95mm - [id number] Implanted:Qty: 1 on 01/20/2021 by Alli Townsend MD at OR [facility] Left: Hip MILAN : TRAUMA 11/02/2025 3060-009 5S / / [id number] Screw T2 Alpha Lock 5x47.5mm - [id number] Implanted:Qty: 1 on 01/20/2021 by Alli Townsend MD at OR [facility] Left: Hip MILAN : TRAUMA 05/04/2029 2360-504 7S / / [id number] documented as of this encounter Advance Directives Documents on File Type Date Recorded Patient Resource Specialist Teacher Expl anation POLST 07/15/2023 [place] OR [facility] [place] FOR LIFE-SUSTAINING [...] First Alternate Health Care Agent Care Teams Assembler Motor Vehicle Relationship Specialty Start Date End Date Amor Ptae MD [address] [place] [phone] PCP - General Family Medicine 12/06/22 documented as of this encounter
--- OUTSIDE RECORDS SUMMARY | 2024-08-18 16:20 | External Medical Summary | Summary of Care ---
Author Name Unknown Organization [facility] Address [address] [place] [address] Phone [phone] Care Team Providers Care Inspector Motor Vehicles Name Role Phone Amor Pate MD Primary Care Provider [phone] Encounter Details Date Type Department Care Team (Late st Contact Info) Description 04/16/2024 8:00 AM EDT Laboratory Lab Mobile Phlebotomy [facility] [address] [place] [address] [facility], [facility] Mobile Home Draw [address] [place] [address] Type 2 diabetes mellitus with hemoglobin A1c goal of less than 7.0% ([facility]); Hypertensive heart and kidney disease with chronic diastolic congestive heart failure and stage 3a chronic kidney disease ([facility]); Dyslipidemia, goal LDL below 70; Age-related osteoporosis without current pathological fracture Allergies No known active allergiesdocumented as [...] in the morning. 30 Capsule 07/14/2023 Active Additional Information Patient taking differently:1 Capsule Oral Daily(AM),Taking once a week, Reported on 12/10/2023 Multivitamin Adults Oral Tablet Take 1 Tablet [...] in the morning. 30 Tablet 07/14/2023 Active Ivqhpmd-Gugfewkpf-Fc tamin D ER 600-40-500 MG-MG-UNIT Tablet Extended [...] Oral Tablet (Requip)Indications: Tremors of nervous system Take 1 Tablet by [...] morning. 45 Tablet 3 12/25/2023 Active Nystatin 249918 UNIT/GM External CreamIndications:Can didal intertrigo Apply topically [...] knee joint once. 3 mL 04/14/2024 Active documented as of this encounter (statuses [...] multicystic lesion of the pancreas CEA, FLUID 20639.0 ng/mL Final COMMENT Final The reference range [...] patient does not have a Power of Bleacher Pulp or Advanced Directives in place at this [...] Progress Notes * Kayla Thompson CRNP - 04/20/2024 11:36 AM EDT Your recent lipid panel and hgba1c looked good. Please call with questions or concerns. documented in this encounter Plan of Treatment Upcoming Encounters Date Type Department Care Team (Late st Contact Info) Description 05/05/2024 2:00 PM EDT Office Visit CardiologyFrancisco [address] [place], [place] [address]FR[place] [phone] Stephanie Ramos PA-C [address] [place] [address] 05/06/2024 8:10 AM EDT Laboratory Lab Mobile Phlebotomy [facility] [address] [place] [address] [facility], Gml Mobile Home Draw [address] [place] [address] 05/07/2024 6:00 AM EDT Anticoagulation Centralized Clinical Pharmacy Services, Derrek [address] [place] [address] [facility], [address] [place] [address] 05/11/2024 12:50 PM EDT Office Visit Dermatology, [place]yl [place] [address] [facility] [address] [place] [address] Marilyn Ozuna PA-C [address] [place] [address] 05/28/2024 1:00 PM EDT Scheduled Telephone [facility], [facility] [address] [facility] [place] [address] Cyndie Hilton, TEMON [address] [facility] [place] [address] 06/01/2024 5:30 PM EDT Home Visit [facility], [facility] [address] [place] [address] Allison Young RN 132 [facility] [place] [address] 06/17/2024 11:00 AM EST Telemedicine Hematology/Oncology, [address] [address] Billy Basurto MD 400 [facility] [place] [phone] 07/10/2024 1:40 PM EST Home Visit Abel[facility] at [facility] 132 [facility] [place] [address] Kayla Thompson CRNP 132 [facility] [place] [address] Zohaib Castillo, Community Health Factory Lay Out Engineer [address] [place] [address] 07/14/2024 12:00 PM EST Office Visit Gastroenterology, [facility] [place] [address] [place] [phone] Rashida Jerome PA-C 310 [facility] [place] [address] 08/18/2024 3:30 PM EST Office Visit Otolaryngology, Francisco Polanco [address] [place] [address] Hema Hercules PA-C 27 [place] [address] 08/26/2024 5:40 PM EST Office Visit [facility], [place] [address] [place] [phone] Amor Pate MD [address] [address] 09/10/2024 12:50 PM EST Office Visit Dermatology, Adwoa [place] [address] [place] 140 [place] [address] Marilyn Ozuna PA-C 27 [place] [address] 12/31/2024 1:00 PM EDT Cardiac Studies Cardiology, [place] [address] [place] [address] [place] [address] [place] [address] 02/04/2025 12:00 PM EDT Home Visit Care at Home [address] [place], [place] [phone] Carol Mathew PA-C [address] [place] [address] Scheduled Procedures Name Priority Associated Diagnoses Date/Ti [...] Additional history exists CKD PHOS USE SMARTSET 63523 08/22/202408/05, 08/20/2023, 11/07/2022, Additional history exists HbA1c 10/14/2024 04/16/2024, 12/12/2022, 04/01/2023 Albumin/Creatinine Ratio 12/05/2024 12/06/2023, 03/06 Adult Wellness Visit 02/03/2025 02/04/2024, 02/29/20 23 Depression Screening 02/03/2025 02/04/2024, 12/10/19 24 CKD HGB USE SMARTSET 20788 03/02/202503/02, 03/02/2024, 02/17/2024, Additional history exists DXA Scan 04/22/2025 04/22/2023, 04/05, 12/25/2018, Additional history exists Pneumococcal Vaccine: 65+ Years Completed 02/01/2016, 10/27/2002 VITAMIN D LEVEL ONCE IN A LIFETIME-USE SMARTSET# 63254 Completed 04/16/2024, 09/16/2023, 10/20/2019, Additional history exists [...] this encounter Medical Devices Implanted Type Area Steel Molder Device Identifier Shelf Expiration Date Model / Serial / Lot Implant System, Trim-It Drill Pin [id number]" X 4" Implanted:Qty: 1 on 10/10/2017 by Sydney Castelan DPM at OR [facility] Right: Toe 04/04/2019 AR-4152DS / / [id number] Medtronic Attesta Surescan Pacemaker Implanted:Qty: 1 on 06/09/2020 by Chanel Lin DO at OR [facility] Left: Chest 08/01/2021 ATSR01 / [id number] / Nail Gamma3 Left [id number] - [id number] Implanted:Qty: 1 on 01/20/2021 by Alli Townsend MD at OR [facility] Left: Hip MILAN : TRAUMA 12/03/2023 3525-034 0S / / [id number] Screw Lag 10.5x95mm - [id number] Implanted:Qty: 1 on 01/20/2021 by Alli Townsend MD at OR [facility] Left: Hip MILAN : TRAUMA 11/02/2025 3060-009 5S / / [id number] Screw T2 Alpha Lock 5x47.5mm - [id number] Implanted:Qty: 1 on 01/20/2021 by Alli Townsend MD at OR [facility] Left: Hip MILAN : TRAUMA 05/04/2029 2360-504 7S / / [id number] documented as of this encounter Procedures Procedure Name Priority Date/Time Associated Diagnosis Comments TSH WITH FREE T4 IF INDICATED Routine 04/16/2024 8:27 AM EDT 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) LIPID PANEL WITH DIRECT LDL IF TG IS HIGH Routine 04/16/2024 8:27 AM EDT Dyslipidemia, goal LDL below 70 25-HYDROXY VITAMIN D Routine 04/16/2024 8:27 AM EDT Age-related osteoporosis without current pathological fracture HEMOGLOBIN A1C Routine 04/16/2024 8:27 AM EDT Type 2 diabetes mellitus with hemoglobin A1c goal of less than 7.0% ([facility]) CREATININE Routine 04/16/2024 8:27 AM EDT Age-related osteoporosis without current pathological fracture CALCIUM Routine 04/16/2024 8:27 AM EDT Age-related osteoporosis without current pathological fracture documented in this encounter Results * 25-HYDROXY VITAMIN D (04/16/2024 8:27 AM EDT) 25-Hydroxy Vitamin D 74 >19 ng/mL 04/16/2024 9:56 PM EDT [facility] [place] Venous blood specimen / Unknown Venipuncture / Unknown 04/16/2024 8:27 AM EDT 04/16/2024 10:10 AM EDT Narrative [facility] - 04/16/2024 9:56 PM EDT Deficient: <20 ng/mL Insufficient: 20-29 ng/mL Recommended/Optimum:30-50 ng/mL Vitamin D intoxication is rare. If suspicious of Vitamin D toxicity, evaluation of serum Calcium and PTH is recommended. Geronimo Arredondo MD LAB BLOOD ORDERABLE S [facility] [address] [place] [address] * CREATININE (04/16/2024 8:27 AM EDT) CREATININE 0.9 0.5 - 1.0 mg/dL 04/16/2024 12:43 PM EDT LABORATORY [facility] EGFR 62 >=60 mL/min 04/16/2024 12:43 PM EDT LABORATORY [facility] Comment:eGFR is calculated b ased on the CKD-EPI 2020 equation. Blood Venous blood specimen / Unknown Venipuncture / Unknown 04/16/2024 8:27 AM EDT 04/16/2024 10:10 AM EDT Geronimo Arredondo MD LAB BLOOD ORDERABLE S Performing Organization Address [facility] Co de Phone Number LABORATORY [address] [address] * CALCIUM (04/16/2024 8:27 AM EDT) CALCIUM 9.3 8.4 - 10.2 mg/dL 04/16/2024 12:43 PM EDT LABORATORY [facility] Blood Venous blood specimen / Unknown Venipuncture / Unknown 04/16/2024 8:27 AM EDT 04/16/2024 10:10 AM EDT Geronimo Arredondo MD LAB BLOOD ORDERABLE S Performing Organization Address [facility] Co de Phone Number LABORATORY [address] [address] * LIPID PANEL WITH DIRECT LDL IF TG IS HIGH (04/16/2024 8:27 AM EDT) Triglycerides 77 <=174 mg/dL 04/16/2024 6:57 PM EDT [facility] Comment: Triglyceride Reference Ranges (mg/dL): <150 Acceptable 150-174 Borderline high 175-499 High >=500 Very high Cholesterol 139 <200 mg/dL 04/16/2024 6:57 PM EDT [facility] Comment: Total Cholesterol Reference Ranges (mg/dL): <200 Desirable 200-239 Borderline high >=240 High HDL Cholesterol 55 >49 mg/dL 6:57 PM EDT [facility] Comment: HDL Cholesterol Reference Ranges (mg/dL): >=60 High (Desirable) <50 Low (Undesirable) For Females <40 Low (Undesirable) For Males Non-HDL Cholesterol 84 <=159 mg/dL 04/16/2024 6:57 PM EDT [facility] Comment: Non-HDL Cholesterol Reference Range (mg/dL): <100 Target level for high risk ASCVD patient <130 Optimal for general population 130-159 Near optimal for general population 160-189 Borderline High 190-219 High >=220 Very High LDL Cholesterol 69 <=129 mg/dL 04/16/2024 6:57 PM EDT [facility] Comment: LDL Cholesterol Reference Ranges (mg/dL): <70 Target level for high risk ASCVD patient <100 Optimal for general population 100-129 Near optimal for general population 130-159 Borderline high 160-189 High >=190 Very high Blood Venous blood specimen / Unknown Venipuncture / Unknown 04/16/2024 8:27 AM EDT 04/16/2024 10:10 AM EDT Kayla NICHOLS LAB BLOOD ORDERABLES LABORATORY [address] [id number] * TSH WITH FREE T4 IF INDICATED (04/16/2024 8:27 AM EDT) Pathologist [facility] TSH 1.96 0.27 - 4.20 uIU/mL 04/16/2024 12:14 PM EDT LABORATORY [facility] Blood Venous blood specimen / Unknown Venipuncture / Unknown 04/16/2024 8:27 AM EDT 04/16/2024 10:10 AM EDT Kayla NICHOLS LAB BLOOD ORDERABLES Performing Organization Address City/[facility]/ZIP Co de Phone Number LABORATORY [facility] [address] [place] [address] * HEMOGLOBIN A1C (04/16/2024 8:27 AM EDT) Hemoglobin A1C 5.6 4.0 - 5.6 % 04/16/2024 7:02 PM EDT [facility] Comment:The use of HbA1c to monitor glycemic status is based on normal hemoglobin and HbA composition. This test should not be used in patients with abnormal hemoglobin that affects the half life of the red blood cell or the in vivo glycation rates. Estimated Average Glucose 114 <126 mg/dL 04/16/2024 7:02 PM EDT [facility] Blood Venous blood specimen / Unknown Venipuncture / Unknown 04/16/2024 8:27 AM EDT 04/16/2024 10:10 AM EDT Kayla NICHOLS LAB BLOOD ORDERABLES Performing Organization Address [facility] Co de Phone Number [facility]ATORY [facility] [address] [place] [address] documented in this encounter Visit Diagnoses Diagnosis Type 2 diabetes mellitus with hemoglobin A1c goal of less than 7.0% (HCC) 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) Dyslipidemia, goal LDL below 70 Other and unspecified hyperlipidemia Age-related osteoporosis without current pathological fracture Senile osteoporosis documented in this encounter Advance Directives Documents on File Type Date Recorded Patient Classroom Assistant Expl anation POLST 07/15/2023 [place] [facility] FOR LIFE-SUSTAINING TREATMENT [...] First Alternate Health Care Agent Care Teams Inspector Motor Vehicles Relationship Specialty Start Date End Date Amor Pate MD [address] [place] [id number] PCP - General Family Medicine 12/06/22 documented as of this encounter
--- OUTSIDE RECORDS SUMMARY | 2024-08-18 16:20 | External Medical Summary | Summary of Care ---
Author Name Unknown Organization [facility] Address [address] [place] [address] Phone [phone] Care Team Providers Care Telephone Station Repairer Name Role Phone Amor Pate MD Primary Care Provider [phone] Reason for Visit * Reason Onset Date Comments Information 05/05/2024 Encounter Details Date Type Department Care Team (Late st Contact Info) Description 05/05/2024 Telephone [facility], [place] [address] [place], [place] [phone] [facility] [address] [place] [address] Information (////) Allergies No known [...] in the morning. 30 Tablet 07/14/2023 Active Tovpdcb-Okxwugsrl-If tamin D ER 600-40-500 MG-MG-UNIT Tablet Extended [...] morning. 45 Tablet 3 12/25/2023 Active Nystatin 034900 UNIT/GM External CreamIndications:Can didal intertrigo Apply topically [...] multicystic lesion of the pancreas CEA, FLUID 85595.0 ng/mL Final COMMENT Final The reference range [...] patient does not have a Power of Invoice Checker or Advanced Directives in place at this [...] Conjugate Vacc, 13 Valent (Prevnar) 02/01/2016 Seasonal Influenza, PF, 6 M & above, IM , (FluLaval or Fluzone) 05/10/2020,05/26/2019,05/19/2018,2016 Seasonal Influenza, Quadriva lent Hd (Fluzone Hd) 04/29/2023,05/28/2022,05/18/2021 Seasonal Influenza, Quadriva lent, No Preserve, IM 05/30/2016,05/30/2015 Seasonal Influenza, Trivalen t, (IIV3), with Preserv, (Fluzone) 04/26/2014,04/23/2013,04/24/2012,2010,04/25/2010,05/24/2009,05/25/2008,1 ,06/22/2006 TDAP (age 10 and older)(Boostrix) 10/03/2012 Varicella [...] money to buy more. Never true 04/01/20 Within the past 12 months, t he [...] waiting her response if they can take on documented in this encounter Plan of Treatment Upcoming Encounters Date Type Department Care Team (Late st Contact Info) Description 05/05/2024 2:00 PM EDT Office Visit Cardiology, [place] [address] [place] [phone] Stephanie Ramos PA-C [address] [place] [address] 05/06/2024 8:10 AM EDT Laboratory Lab Mobile Phlebotomy GL [address] [place] [address] Gl, Gml Mobile Home Draw [address] [place] [address] 05/07/2024 6:00 AM EDT Anticoagulation Centralized Clinical Pharmacy Services, Derrek Denton [address] [place] [address] [place] [address] Ccps, [address] [place] [address] 05/11/2024 12:50 PM EDT Office Visit Dermatology, Adwoa GreenMerylwn [address] [facility] 140 [place] [address] Marilyn Ozuna PA-C [address] [place] [address] 05/14/2024 1:20 PM EDT [facility] 310 [place] [phone] Cindy Elena DO 132 [facility] [place] [address] 05/28/2024 1:00 PM EDT Scheduled Telephone [facility], [facility] [address] [facility] [place] [address] Cyndie Hilton RDN [address] [facility] [place] [address] 06/01/2024 5:30 PM EDT Home Visit [facility], [facility] 132 [facility] [place] [address] Allison Young RN [address] [place] [address] 06/17/2024 11:00 AM EST Telemedicine Hematology/Oncology, [facility] [place] [address] Billy Basurto MD 400 [facility] [phone] 07/10/2024 1:40 PM EST Home Visit [facility] [address] [place] [address] Kayla Thompson CRNP 132 [facility] [place] [address] Zohaib Castillo, Community Health Credit Analysis Manager [address] [place] [address] 08/18/2024 3:30 PM EST Office Visit Otolaryngology, [place] Polanco [address] [place] [address] Hema Hercules PA-C [address] [place] [address] 08/26/2024 5:40 PM EST Office Visit Family [facility], [place] [address] [place] [phone] Amor Pate MD [address] [place] [address] 09/10/2024 12:50 PM EST Office Visit Dermatology, Adwoa [place] Green [address] [place] [address] [place] [address] Marilyn Ozuna PA-C 27 [place] [address] 12/31/2024 1:00 PM EDT Cardiac Studies Cardiology, [place] [address] [place] [address] [facility] [address] [place] [address] 02/04/2025 12:00 PM EDT Home Visit Care at Home [address] [place] [address] Carol Mathew PA-C [address] [place] [address] Scheduled Procedures Name Priority Associated Diagnoses Date/Ti [...] Additional history exists CKD PHOS USE SMARTSET 17737 08/22/202408/05, 08/20/2023, 11/07/2022, Additional history exists HbA1c 10/14/2024 04/16/2024, 1212/2022, 04/01/2023 Albumin/Creatinine Ratio 12/05/2024 12/06/2023, 03/06 Adult Wellness Visit 02/03/2025 02/04/2024, 02/29/20 23 Depression Screening 02/03/2025 02/04/2024, 12/10/19 24 CKD HGB USE SMARTSET 02050 03/02/202503/02, 03/02/2024, 02/17/2024, Additional history exists DXA Scan 04/22/2025 04/22/2023, 04/05, 12/25/2018, Additional history exists Pneumococcal Vaccine: 65+ Years Completed 02/01/2016, 10/27/2002 VITAMIN D LEVEL ONCE IN A LIFETIME-USE SMARTSET# 54970 Completed 04/16/2024, 09/16/2023, 10/20/2019, Additional history exists [...] encounter Medical Devices Implanted Type Area Machine Splitter Device Identifier Shelf Expiration Date Model / Serial / Lot Implant System, Trim-It Drill Pin [id number]" X 4" Implanted:Qty: 1 on 10/10/2017 by Sydney Castelan DPM at OR [facility] Right: Toe 04/04/2019 AR-[id number] / / [id number] Medtronic Attesta Surescan Pacemaker Implanted:Qty: 1 on 06/09/2020 by Chanel Lin DO at OR [facility] Left: Chest 08/01/2021 ATSR01 / [id number] / Nail [id number] Left [id number] - [id number] Implanted:Qty: 1 on 01/20/2021 by Alli Townsend MD at OR [facility] Left: Hip MILAN : TRAUMA 12/03/2023 3525-034 0S / / [id number] Screw Lag 10.5x95mm - [id number] Implanted:Qty: 1 on 01/20/2021 by Alli Townsend MD at OR [facility] Left: Hip MILAN : TRAUMA 11/02/2025 3060-009 5S / / [id number] Screw T2 Alpha Lock 5x47.5mm - [id number] Implanted:Qty: 1 on 01/20/2021 by Alli Townsend MD at OR [facility] Left: Hip MILAN : TRAUMA 05/04/2029 2360-504 7S / / [id number] documented as of this encounter Advance Directives Documents on File Type Date Recorded Patient Software Asset Management Analyst Expl anation POLST 07/15/2023 [place] [facility] FOR LIFE-SUSTAINING [...] First Alternate Health Care Agent Care Teams Telephone Station Repairer Relationship Specialty Start Date End Date Amor Pate MD [address] [place] [address] PCP - General Family Medicine 12/06/22 documented as of this encounter
--- OUTSIDE RECORDS SUMMARY | 2024-08-18 16:20 | External Medical Summary | Summary of Care ---
Author Name Unknown Organization [facility] Address [address] [place] [address] Phone [phone] Care Team Providers Care Aircraft Landing Gear Inspector Name Role Phone Amor Pate MD Primary Care Provider [phone] Reason for Visit * Reason Onset Date Comments Information 05/05/2024 Encounter Details Date Type Department Care Team (Late st Contact Info) Description 05/05/2024 Telephone [facility], [facility] [place] [address] [place], [place] [phone] [facility] [address] [place] [address] Information (////) Allergies No known [...] in the morning. 30 Tablet 07/14/2023 Active Yegrdsr-Bzfsuyirh-Yw tamin D ER 600-40-500 MG-MG-UNIT Tablet Extended [...] morning. 45 Tablet 3 12/25/2023 Active Nystatin 110758 UNIT/GM External CreamIndications:Can didal intertrigo Apply topically [...] multicystic lesion of the pancreas CEA, FLUID 84038.0 ng/mL Final COMMENT Final The reference range [...] 06/18/2013 Last Assessment & Plan: S/p pacemaker nursing home current use of anticoagulant therapy 0 [...] patient does not have a Power of Business Integration Analyst or Advanced Directives in place at [...] they just dc her form them on 9/5 and are not willing to take back as son was other alliance party to assist in her care the off days that they werent there and he didn't do anything with her. She mostly sits in a chair all day and night. They declined so I went back to [facility] and explained and Veronica is sending ot the [facility] office to see if they would be willing to take her on given the circumstances Veronica got back to me and they declined as a safety risk as well Will try others in this area documented in this encounter Plan of Treatment Upcoming Encounters Date Type Department Care Team (Late st Contact Info) Description 05/05/2024 2:00 PM EDT Office Visit Cardiology, [place] [address] [place] [address] Stephanie Ramos PA-C [address] [place] [address] 05/06/2024 8:10 AM EDT Laboratory Lab Mobile Phlebotomy [facility] [address] [place] [address] [facility], [facility] Mobile Home Draw [address] [place] [address] 05/07/2024 6:00 AM EDT Anticoagulation Centralized Clinical Pharmacy Services, Derrek Denton [address] [place] [address] [place] [address] [place] [address] 05/11/2024 12:50 PM EDT Office Visit Dermatology, Francisco Caballero [address] [place] [address] Marilyn Ozuna PA-C [address] [place] [address] 05/28/2024 1:00 PM EDT Scheduled Telephone [facility], [facility] [address] [facility] [address] Cyndie Hilton, RDN [address] [facility] [place] [address] 06/01/2024 5:30 PM EDT Home Visit [facility], [facility] 132 [facility] [place] [address] Allison Young RN [address] [place] [address] 06/17/2024 11:00 AM EST Telemedicine Hematology/Oncology, [facility] 400 [place] [address] Billy Basurto MD [address] [place] [phone] 07/10/2024 1:40 PM EST Home Visit [facility], [facility] [address] [facility] [place] [address] Kayla Thompson CRNP [address] [place] [address] Zohaib Castillo, Community Health Clinical Unit Coordinator [address] [place] [address] 07/14/2024 12:00 PM EST Office Visit Gastroenterology, [place] [address] [facility] [phone] Rashida Jerome PA-C 310 [facility] [place] [address] 08/18/2024 3:30 PM EST Office Visit Otolaryngology, Adwoa Lozada [place] [address] [place] [address] Hema Hercules PA-C [address] [place] [address] 08/26/2024 5:40 PM EST Office Visit Family [facility], [place] [address] [place] [phone] Amor Pate MD [address] [place] cheng [address] 09/10/2024 12:50 PM EST Office Visit Dermatology, Adwoa Green [place] 27 [facility] [address] [place] [address] Marilyn Ozuna PA-C [address] [place] [address] 12/31/2024 1:00 PM EDT Cardiac Studies Cardiology, [place] [address] [facility] [place] [address] [place] [address] [facility] [place] [address] 02/04/2025 12:00 PM EDT Home Visit Care at Home [address] [place] [address] Carol Mathew PA-C [address] [place] [address] Scheduled Procedures Name Priority Associated Diagnoses Date/Ti [...] COVID-19 Vaccine ( season) 2024 10/26/2020, 09/30/2020 Influenza Vaccine (FLU shot) (#1) 2024 04/29/2023, 05/28/2022, 05/18/2021, Additional history exists Diabetic Eye Exam 06/19/2024 06/19/2023, , 01/12/2019, Additional history exists CKD PHOS USE SMARTSET 92267 08/22/202408/05, 08/20/2023, 11/07/2022, Additional history exists HbA1c 10/14/2024 04/16/2024, 12/2022, 04/01/2023 Albumin/Creatinine Ratio 12/05/2024 12/06/2023, 03/06 Adult Wellness Visit 02/03/2025 02/04/2024, 02/29/20 23 Depression Screening 02/03/2025 02/04/2024, 12/10/19 24 CKD HGB USE SMARTSET 33619 03/02/202503/02, 03/02/2024, 02/17/2024, Additional history exists DXA Scan 04/22/2025 04/22/2023, 04/05, 12/25/2018, Additional history exists Pneumococcal Vaccine: 65+ Years Completed 02/01/2016, 10/27/2002 VITAMIN D LEVEL ONCE IN A LIFETIME-USE SMARTSET# 98195 Completed 04/16/2024, 09/16/2023, 10/20/2019, Additional history exists [...] this encounter Medical Devices Implanted Type Area News Internship Device Identifier Shelf Expiration Date Model / Serial / Lot Implant System, Trim-It Drill Pin [id number](.078" X 4" Implanted:Qty: 1 on 10/10/2017 by Sydney Castelan DPM at OR [facility] Right: Toe 04/04/2019 AR-[id number] / / [id number] Medtronic Attesta Surescan Pacemaker Implanted:Qty: 1 on 06/09/2020 by Chanel Lin DO at OR [facility] Left: Chest 08/01/2021 ATSR01 / [id number] / Nail [id number] Left [id number] - [id number] Implanted:Qty: 1 on 01/20/2021 by Alli Townsend MD at OR [facility] Left: Hip MILAN : TRAUMA 12/03/2023 3525-034 0S / / [id number] Screw Lag 10.5x95mm - [id number] Implanted:Qty: 1 on 01/20/2021 by Alli Townsend MD at OR [facility] Left: Hip MILAN : TRAUMA 11/02/2025 3060-009 5S / / [id number] Screw T2 Alpha Lock 5x47.5mm - [id number] Implanted:Qty: 1 on 01/20/2021 by Alli Townsend MD at OR [facility] Left: Hip MILAN : TRAUMA 05/04/2029 2360-504 7S / / [id number] documented as of this encounter Advance Directives Documents on File Type Date Recorded Patient Gut Sorter Expl anatcas POL 07/15/2023 [place] [facility] FOR LIFE-SUSTAINING TREATMENT * Full [...] First Alternate Health Care Agent Care Teams Aircraft Landing Gear Inspector Relationship Specialty Start Date End Date Amor Pate MD [address] [place] [address] PCP - General Family Medicine 12/06/22 documented as of this encounter
--- OUTSIDE RECORDS SUMMARY | 2024-08-18 16:20 | External Medical Summary | Summary of Care ---
Author Name Unknown Organization [facility] Address [address] [place] [address] Phone [phone] Care Team Providers Care Manager Office Name Role Phone Amor Pate MD Primary Care Provider [phone] Reason for Visit * Reason Onset Date Comments Information 05/05/2024 Encounter Details Date Type Department Care Team (Late st Contact Info) Description 05/05/2024 Telephone [facility] [address] [place], [place] [phone] [facility] [address] [place] [address] Information (////) Allergies No known [...] in the morning. 30 Tablet 07/14/2023 Active Mpksnkk-Qsydhkccv-Cn tamin D ER 600-40-500 MG-MG-UNIT Tablet Extended [...] morning. 45 Tablet 3 12/25/2023 Active Nystatin 798451 UNIT/GM External CreamIndications:Can didal intertrigo Apply topically [...] multicystic lesion of the pancreas CEA, FLUID 27297.0 ng/mL Final COMMENT Final The reference range [...] patient does not have a Power of And Drying Supervisor Cooking Casing or Advanced Directives in place at this [...] mRNA, LNP-s, No Pre serve, 2-Dose Series ([facility]) 10/26/2020,09/30/2020 Pneumococcal Conjugate Vacc, 13 Valent (Prevnar) 02/01/2016 Pneumococcal Polysaccharide PPV23 (Pneumovax) 10/27/2002 Seasonal Influenza, PF, 6 M & above, IM , (FluLaval or Fluzone) 05/10/2020,05/26/2019,05/19/2018,04/24 Seasonal Influenza, Quadriva lent Hd (Fluzone Hd) 04/29/2023,05/28/2022,05/18/2021 Seasonal Influenza, Quadriva lent, No Preserve, IM 05/30/2016,05/30/2015 Seasonal Influenza, Trivalen t, (IIV3), with Preserv, (Fluzone) 04/26/2014,04/23/2013,04/24/2012,04/25,04/25/2010,05/24/2009,05/25/2008 ,05/07/2007,06/22/2006,07/04/2005,05/06,06/01/2002 TD - Tetanus/Diptheria (ADULT) 08/22/1992 TD, Preservative [...] to take back as son was other constitution party to assist in her care the off days that they werent there and he didn't do anything with her. She mostly sits in a chair all day and night. They declined so I went back to [facility] and explained and Veronica is sending ot the [facility] office to see if they would be willing to take her on given the circumstances documented in this encounter Plan of Treatment Upcoming Encounters Date Type Department Care Team (Late st Contact Info) Description 05/05/2024 2:00 PM EDT Office Visit Cardiology, [place] [address] [place] [address] Stephanie Ramos PA-C [address] [place] [address] 05/06/2024 8:10 AM EDT Laboratory Lab Mobile Phlebotomy [facility] [address] [place] [address] [facility], [facility] Mobile Home Draw [address] [place] [address] 05/07/2024 6:00 AM EDT Anticoagulation Centralized Clinical Pharmacy Services, Derrek Denton [address] [place] [address] [place] [address] [place] [address] 05/11/2024 12:50 PM EDT Office Visit Dermatology, Francisco Caballero [address] [place] [address] Marilyn Ozuna PA-C [address] [place] [address] 05/14/2024 1:20 PM EDT Office Visit Gastroenterology, [place] 310 [facility] [place] [phone] Cindy Elena DO [address] [place] [address] 05/28/2024 1:00 PM EDT Scheduled Telephone [facility], [facility] [address] [facility] [place] [address] Cyndie Hilton, [place] [address] [facility] [place] [address] 06/01/2024 5:30 PM EDT Home Visit [facility], [facility] 132 [facility] [place] [address] Allison Young RN 132 [place] [address] 06/17/2024 11:00 AM EST Telemedicine Hematology/Oncology, [facility] 400 [place] [address] Billy Basurto MD 400 [place] [phone] 07/10/2024 1:40 PM EST Home Visit [facility], [facility] 132 [place] [address] Kayla Thompson CRNP 132 [place] [address] Zohaib Castillo Community Health Body Mechanic Apprentice [address] [place] [address] 08/18/2024 3:30 PM EST Office Visit Otolaryngology, Francisco Polanco [address] [place] [address] Hema Hercules PA-C [address] [place] [address] 08/26/2024 5:40 PM EST Office Visit Family Practice, [place] [address] [place] [phone] Amor Pate MD [address] [place] [address] 09/10/2024 12:50 PM EST Office Visit Dermatology, [place] [address] [place] [address] Marilyn Ozuna PA-C [address] [place] [address] 12/31/2024 1:00 PM EDT Cardiac Studies Cardiology, [place] 400 [facility] [place] [address] [place], [facility] 400 [facility] [place] [address] 02/04/2025 12:00 PM EDT Home Visit Care at Home [address] [place], [place] [phone] Carol Mathew PA-C [address] [place], [place] [phone] Scheduled Procedures Name Priority Associated Diagnoses Date/Ti [...] Additional history exists CKD PHOS USE SMARTSET 27742 08/22/202408/05, 08/20/2023, 11/07/2022, Additional history exists HbA1c 10/14/2024 04/16/2024, 12/2022, 04/01/2023 Albumin/Creatinine Ratio 12/05/2024 12/06/2023, 03/06 Adult Wellness Visit 02/03/2025 02/04/2024, 02/29/20 23 Depression Screening 02/03/2025 02/04/2024, 12/10/19 24 CKD HGB USE SMARTSET 11786 03/02/202503/02, 03/02/2024, 02/17/2024, Additional history exists DXA Scan 04/22/2025 04/22/2023, 04/05, 12/25/2018, Additional history exists Pneumococcal Vaccine: 65+ Years Completed 02/01/2016, 10/27/2002 VITAMIN D LEVEL ONCE IN A LIFETIME-USE SMARTSET# 46727 Completed 04/16/2024, 09/16/2023, 10/20/2019, Additional history exists [...] this encounter Medical Devices Implanted Type Area Gut Cleaner Device Identifier Shelf Expiration Date Model / Serial / Lot Implant System, Trim-It Drill Pin [id number](.078" X 4" Implanted:Qty: 1 on 10/10/2017 by Sydney Castelan DPM at OR [facility] Right: Toe 04/04/2019 AR-[id number] / / [id number] Medtronic Attesta Surescan Pacemaker Implanted:Qty: 1 on 06/09/2020 by Chanel Lin DO at OR [facility] Left: Chest 08/01/2021 ATSR01 / [id number] / Nail [id number] Left [id number] - [id number] Implanted:Qty: 1 on 01/20/2021 by Alli Townsend MD at OR [facility] Left: Hip MILAN : TRAUMA 12/03/2023 3525-034 0S / / [id number] Screw Lag 10.5x95mm - [id number] Implanted:Qty: 1 on 01/20/2021 by Alli Townsend MD at OR [facility] Left: Hip MILAN : TRAUMA 11/02/2025 3060-009 5S / / [id number] Screw T2 Alpha Lock 5x47.5mm - [id number] Implanted:Qty: 1 on 01/20/2021 by Alli Townsend MD at OR [facility] Left: Hip MILAN : TRAUMA 05/04/2029 2360-504 7S / / [id number] documented as of this encounter Advance Directives Documents on File Type Date Recorded Patient Director External Communications Expl anation POLST 07/15/2023 [place] [facility] FOR LIFE-SUSTAINING TREATMENT [...] Alternate Health Care Agent Care Teams Manager Office Relationship Specialty Start Date End Date Amor Pate MD [address] [place] [phone] PCP - General Family Medicine 12/06/22 documented as of this encounter
--- OUTSIDE RECORDS SUMMARY | 2024-08-18 16:20 | External Medical Summary | Summary of Care ---
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 Abelardo Comments Documentation of Ifhv-fc-Qbbl Encounter Addendum Patient Name: Zulma Villar I certify that this patient is under my care and that I, or a nurse practitioner or physician's assistant health educator working with me, had a emnw-nf-ebqj encounter that meets the physician nxnb-ok-eise encounter requirements with this patient on: 04/01/24 The encounter with the patient was in whole, or in part, for the following medical condition, which is the primary reason for home health care (List medical condition): Wound care I certify that, based on my findings, the following services are medically necessary home health services: Nursing To provide the following care/treatments: (All hospitalists not following the patient after discharge should complete this section): SN--monitor healing stage 2 pressure ulcer buttock. Apply duoderm or similar dressing every 3 days and prn soiling until healed Primary Care Physician to follow home care plan of care after discharge: Dr. Pate My clinical findings support the need for the above services because: Further, I certify that my clinical findings support that this patient is homebound (i.e. Absences from home require considerable and taxing effort and are for medical reasons or zoroastrian services or infrequently or of short duration when for other reason) because: High fall risk, poor activity tolerance. Physician Signature: Date of Signature: Physician Printed Name: MAGDALENA Mendoza Reason for Visit * Reason Onset Date Comments [facility]: Acute 05/04/2024 Encounter Details Date Type Department Care Team (Late st Contact Info) Description 05/04/2024 Telephone [facility], [facility] [address] [facility] [place] [address] Lizabeth Smith RN [address] [place] [facility] [place] [address] [facility]: Acute Allergies No known active allergiesdocumented as of this encounter (statuses as of 05/04/2024) Medications Medication Sig Dispensed Refills Start Date [...] in the morning. 30 Tablet 07/14/2023 Active Haaufwc-Wcopjwsqf-Rg tamin D ER 600-40-500 MG-MG-UNIT Tablet Extended [...] morning. 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 (Household - for [...] Addendum Note - Kayla Thompson CRNP - 05/04/2024 1:44 PM EDTAddended by: KAYLA THOMPSON on: 05/04/2024 01:44 PM Modules accepted: Orders * Telephone Encounter - Kayla Thompson CRNP - 05/04/2024 1:43 PM EDT She needs home health--I placed order (F2F 04/01/24) for them to monitor, apply duoderm or similar dressing every 3 days until healed. In addition, I think she is spending too much time in recliner and agree she needs to reposition, offload pressure more. [facility] scheduling--please fax referral. * Telephone Encounter - Lizabeth Smith RN - 05/04/2024 12:38 PM EDT Images from the original note were not included. 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 HPI: Zulma Villar is a 88 year old female that is calling [facility] Intake to report that she has a stage 1 ulcer on her buttock that was causing her pain this morning and reports it was bleeding. Caregiver took picture and cleansed area and applied new dressing. Caregiver will be back at 1pm today and will send picture to Intake nurse. Nursing Assessment: Patient's chief complaint for this call: Integumentary Pain Has pain Pain level: 5 Location: buttock ulcer Quality of Pain: aching Does the pain radiate: No Baseline Assessment Able to performing ADLs at baseline (walking, daily tasks, etc.): Yes Chief Complaint is related to a chronic condition: Yes Chronic Condition: ulcer Chief Complaint is a change in baseline: Yes, increased pain and bleeding Patient prescribed oxygen? No Patient has been ordered DME equipment (assistive devices, respiratory equipment, etc.): No Medication Reconciliation: Received flu shot this season: No Taking medication as ordered: Yes Medications ordered/taking to treat reason for call: No Heart failure symptoms: No COPD exacerbation symptoms: No Reinforcement Education: Routed to care team for recommendations Instructed to keep area clean, dry and covered, apply desitin to area Educated on importance of offloading pressure to allow for healing and prevent further breakdown. Treatment/Plan: Level of call: Non-Acute Recommended treatment plan: Clinical advice given over the phone Call back instructions provided to patient. RAÚL Riggs Registered Nurse Navigator Triage [facility] documented in this encounter Plan of Treatment Upcoming Encounters Date Type Department Care Team (Late st Contact Info) Description 05/05/2024 2:00 PM EDT Office Visit Cardiology, [place] [address] [place] [address] Stephanie Ramos PA-C [address] [place] [address] 05/06/2024 8:10 AM EDT Laboratory Lab Mobile Phlebotomy [facility] [address] [place] [address] [facility], [facility] Mobile Home Draw [address] [place] [address] 05/07/2024 6:00 AM EDT Anticoagulation Centralized Clinical Pharmacy Services, [place] [address] [place] [address] [place] [address] [place] [address] 05/11/2024 12:50 PM EDT Office Visit Dermatology, [place] Caball[place] [address] [facility] [address] [place] [address] Marilyn Ozuna PA-C [address] [place] [address] 05/14/2024 1:20 PM EDT Office Visit Gastroenterology, [place] [address] [place] [address] Cindy Elena DO [address] [place] [address] 05/28/2024 1:00 PM EDT Scheduled Telephone [facility], [facility] [address] [place] [facility] [place] [address] Cyndie Hilton, LAT[place] [address] [facility] [place] [address] 06/01/2024 5:30 PM EDT Home Visit [facility], [facility] 132 [facility] [place] [address] Allison Young RN [address] [place] [address] 06/17/2024 11:00 AM EST Telemedicine Hematology/Oncology, [facility] [address] [place] [address] Billy Basurto MD [address] [place] [phone] 07/10/2024 1:40 PM EST Home Visit [facility], [facility] [address] [facility] [place] [address] Kayla Thompson CRNP [address] [place] [address] Zohaib Castillo, Community [facility] Biometrics Experimentalist [address] [place] [address] 08/18/2024 3:30 PM EST Office Visit Otolaryngology, [place] Polanco [address] [place] [address] Hema Hercules PA-C [address] [place] [address] 08/26/2024 5:40 PM EST Office Visit Family [facility], [place] [address] [place] [phone] Amor Pate MD [address] [place] [address] 09/10/2024 12:50 PM EST Office Visit Dermatology, [place] [address] [place] [address] [place] [address] Marilyn Ozuna PA-C [address] [place] [address] 12/31/2024 1:00 PM EDT Cardiac Studies Cardiology, [place] [address] [facility] [place] [address] [place] [address] [facility] [place] [address] 02/04/2025 12:00 PM EDT Home Visit Care at Home [address] [place] [address] Carol Mathew PA-C [address] [place] [address] Scheduled Procedures Name Priority Associated Diagnoses Date/Ti me ESOPHAGOGASTRODUODENOSCOPY ( EGD), FLEXIBLE, TRANSORAL, ENDOSCOPIC ULTRASOUND Recall Pancreatic cyst Scheduled Referrals Name Type Priority Associated Diagnoses Orde r Schedule HOME HEALTH REFERRAL OP Referral Within 10 days (routine) 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, stage 2 (HCC) Ordered: 05/04/2024 Health Maintenance Due Date Last Done Comments [...] Additional history exists CKD PHOS USE SMARTSET 99192 08/22/202408/05, 08/20/2023, 11/07/2022, Additional history exists HbA1c 10/14/2024 04/16/2024, 1212/2022, 04/01/2023 Albumin/Creatinine Ratio 12/05/2024 12/06/2023, 0803/2023 Adult Wellness Visit 02/03/2025 02/04/2024, 02/29/20 23 Depression Screening 02/03/2025 02/04/2024, 12/10/19 24 CKD HGB USE SMARTSET 30677 03/02/202503/02, 03/02/2024, 02/17/2024, Additional history exists DXA Scan 04/22/2025 04/22/2023, 04/05, 12/25/2018, Additional history exists Pneumococcal Vaccine: 65+ Years Completed 02/01/2016, 10/27/2002 VITAMIN D LEVEL ONCE IN A LIFETIME-USE SMARTSET# 94041 Completed 04/16/2024, 09/16/2023, 10/20/2019, Additional history exists [...] this encounter Medical Devices Implanted Type Area Fast Food Supervisor Device Identifier Shelf Expiration Date Model / Serial / Lot Implant System, Trim-It Drill Pin [id number]" X 4" Implanted:Qty: 1 on 10/10/2017 by Sydney Castelan DPM at OR [facility] Right: Toe 04/04/2019 AR-[id number] / / [id number] Medtronic Attesta Surescan Pacemaker Implanted:Qty: 1 on 06/09/2020 by Chanel Lin DO at OR [facility] Left: Chest 08/01/2021 ATSR01 / [id number] / Nail [id number] Left [id number] - [id number] Implanted:Qty: 1 on 01/20/2021 by Alli Townsend MD at OR [facility] Left: Hip MILAN : TRAUMA 12/03/2023 3525-034 0S / / [id number] Screw Lag 10.5x95mm - [id number] Implanted:Qty: 1 on 01/20/2021 by Alli Townsend MD at OR [facility] Left: Hip MILAN : TRAUMA 11/02/2025 3060-009 5S / / [id number] Screw T2 Alpha Lock 5x47.5mm - [id number] Implanted:Qty: 1 on 01/20/2021 by Alli Townsend MD at OR [facility] Left: Hip MILAN : TRAUMA 05/04/2029 2360-504 7S / / [id number] documented as of this encounter Visit Diagnoses Diagnosis 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
--- OUTSIDE RECORDS SUMMARY | 2024-08-18 16:20 | External Medical Summary | Summary of Care ---
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 Abelardo Comments Documentation of Pema-ew-Tnjf Encounter Addendum Patient Name: Zulma Villar I certify that this patient is under my care and that I, or a nurse practitioner or physician's nurses medical assistants phlebotomists working with me, had a wivj-nc-oeix encounter that meets the physician zoqm-xf-yyub encounter requirements with this patient on: 04/01/24 [...] effort and are for medical reasons or sikhism services or infrequently or of short duration when for other reason) because: High fall risk, poor activity tolerance. Physician Signature: Date of Signature: Physician Printed Name: MAGDALENA Mendoza Reason for Visit * Reason Onset Date Comments [facility]: Acute 05/04/2024 Encounter Details Date Type Department Care Team (Late st Contact Info) Description 05/04/2024 Telephone [facility], [facility] [address] [facility] [place] [address] Lizabeth Smith RN [address] [place] [facility] [place] [address] [facility]: Acute Allergies No known [...] in the morning. 30 Tablet 07/14/2023 Active Elfkxsd-Sodxfmjec-Lm tamin D ER 600-40-500 MG-MG-UNIT Tablet Extended [...] morning. 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 (Household - for ages [...] encounter Miscellaneous Notes * Telephone Encounter - Lizabeth Smith RN - 05/04/2024 4:34 PM EDT Patient made aware RAÚL Riggs Registered Nurse Navigator Triage [facility] * Addendum Note - Kayla Thompson CRNP [...] she needs to reposition, offload pressure more. [facility] scheduling--please fax referral. * Telephone Encounter - Lizabeth Smith RN - 05/04/2024 12:38 PM EDT Images from the original note were not included. [facility] material requirements worker Acute Call Date: 05/04/2024 Time: 12:39 PM Name: Zulma Villar : 1935 Caller: Zulma Relationship to self No chief complaint on file. HPI: Zulma Villar is a 88 year old female that is calling [facility] Intake to report that she [...] 05/05/2024 2:00 PM EDT Office Visit Cardiology, [place] [address] [place] [address] Stephanie Ramos PA-C [address] [place] [address] 05/06/2024 8:10 AM EDT Laboratory Lab Mobile Phlebotomy [facility] [address] [place] [address] [facility], [facility] Mobile Home Draw [address] [place] [address] 05/07/2024 6:00 AM EDT Anticoagulation Centralized Clinical Pharmacy Services, [place] [address] [place] [address] [place] [address] [place] [address] 05/11/2024 12:50 PM EDT Office Visit Dermatology, [place] Caballero [address] [facility] [address] [place] [address] Marilyn Ozuna PAVonda [address] [place] [address] 05/14/2024 1:20 PM EDT Office Visit Gastroenterology, [facility] [address] [place] [phone] Cindy Elena DO [address] [facility] [place] [address] 05/28/2024 1:00 PM EDT Scheduled Telephone [facility], [facility] [address] [facility] [address] [place] [address] Cyndie Hilton, TEM[place] [address] [facility] [place] [address] 06/01/2024 5:30 PM EDT Home Visit [facility], [facility] 132 [facility] [place] [address] Allison Young RN 132 [place] [address] 06/17/2024 11:00 AM EST Telemedicine Hematology/Oncology, [facility] [address] [place] [address] Billy Basurto MD [address] [place] [phone] 07/10/2024 1:40 PM EST Home Visit [facility], [facility] 132 [facility] [place] [address] Kayla Thompson CRNP [address] [facility] [place] [address] Zohaib Castillo, Community Health Power Shovel Operator [address] [place] [address] 08/18/2024 3:30 PM EST Office Visit Otolaryngology, [place] [address] [place] [address] Hema Hercules PA-C [address] [place] [address] 08/26/2024 5:40 PM EST Office Visit Family [facility], [place] [address] [place] [phone] Amor Pate MD [address] [place] [address] 09/10/2024 12:50 PM EST Office Visit Dermatology, [place] [address] [place] [address] [place] [address] Marilyn Ozuna PA-C [address] [place] [address] 12/31/2024 1:00 PM EDT Cardiac Studies Cardiology, [place] [address] [facility] [place] [address] [facility] [address] [facility] [place] [address] 02/04/2025 12:00 PM EDT Home Visit Care at Home [address] [place] [address] Carol Mathew PA-C [address] [place] [address] Scheduled Procedures Name Priority Associated Diagnoses Date/Ti [...] Additional history exists CKD PHOS USE SMARTSET 31307 08/22/202408/05, 08/20/2023, 11/07/2022, Additional history exists HbA1c 10/14/2024 04/16/2024, 12/12/2022, 04/01/2023 Albumin/Creatinine Ratio 12/05/2024 12/06/2023, 08/03/2023 Adult Wellness Visit 02/03/2025 02/04/2024, 02/29/20 23 Depression Screening 02/03/2025 02/04/2024, 12/10/19 24 CKD HGB USE SMARTSET 58915 03/02/202503/02, 03/02/2024, 02/17/2024, Additional history exists DXA Scan 04/22/2025 04/22/2023, 04/05, 12/25/2018, Additional history exists Pneumococcal Vaccine: 65+ Years Completed 02/01/2016, 10/27/2002 VITAMIN D LEVEL ONCE IN A LIFETIME-USE SMARTSET# 08926 Completed 04/16/2024, 09/16/2023, 10/20/2019, Additional history exists [...] this encounter Medical Devices Implanted Type Area Derrickman Helper Device Identifier Shelf Expiration Date Model / Serial / Lot Implant System, Trim-It Drill Pin [id number](.078" X 4" Implanted:Qty: 1 on 10/10/2017 by Sydney Castelan DPM at OR [facility] Right: Toe 04/04/2019 AR-[id number] / / [id number] Medtronic Attesta Surescan Pacemaker Implanted:Qty: 1 on 06/09/2020 by Chanel Lni DO at OR [facility] Left: Chest 08/01/2021 ATSR01 / [id number] / Nail [id number] Left [id number] - [id number] Implanted:Qty: 1 on 01/20/2021 by Alli Townsend MD at OR [facility] Left: Hip MILAN : TRAUMA 12/03/2023 3525-034 0S / / [id number] Screw Lag 10.5x95mm - [id number] Implanted:Qty: 1 on 01/20/2021 by Alli Townsend MD at OR [facility] Left: Hip MILAN : TRAUMA 11/02/2025 3060-009 5S / / [id number] Screw T2 Alpha Lock 5x47.5mm - [id number] Implanted:Qty: 1 on 01/20/2021 by Alli Townsend MD at OR [facility] Left: Hip MILAN : TRAUMA 05/04/2029 2360-504 7S / / [id number] documented as of this encounter Visit Diagnoses Diagnosis 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
--- OUTSIDE RECORDS SUMMARY | 2024-08-18 16:21 | External Medical Summary | Summary of Care ---
Author Name Unknown Organization [facility] Address [address] [place] [address] Phone [phone] Care Team Providers Care Pantry Worker Name Role Phone Amor Pate MD Primary Care Provider [phone] Reason for Visit * Reason Onset Date Comments [facility]: Maintenance 04/24/2024 Encounter Details Date Type Department Care Team (Late st Contact Info) Description 04/24/2024 9:30 AM EDT Scheduled Telephone [facility], [facility] [address] [place] [address] Coordinator, [facility] [address] [place] [address] Allergies No known active allergiesdocumented as of this encounter (statuses as of 04/24/2024) Medications Medication Sig Dispensed Refills Start Date [...] in the morning. 30 Tablet 07/14/2023 Active Vlwqfcb-Ylbuwhtql-Zv tamin D ER 600-40-500 MG-MG-UNIT Tablet Extended [...] morning. 45 Tablet 3 12/25/2023 Active Nystatin 450166 UNIT/GM External CreamIndications:Can didal intertrigo Apply topically [...] as of this encounter (statuses as of 04/24/2024) Active Problems Problem Noted Date Diagnosed Date [...] multicystic lesion of the pancreas CEA, FLUID 19233.0 ng/mL Final COMMENT Final The reference range [...] patient does not have a Power of Last Scourer or Advanced Directives in place at this [...] as of this encounter (statuses as of 04/24/2024) Resolved Problems Problem Noted Date Diagnosed Date [...] as of this encounter (statuses as of 04/24/2024) Immunizations Name Administration Dates Next Due COVID-19 [...] encounter Miscellaneous Notes * Telephone Encounter - Chanel Castro, SOTO - 04/24/2024 12:35 PM EDT Received CB from pt BLE edema is much better, not resolved but rarely ever is. "This was the worst they have ever been." Took Lasix again today (1 additional day than directed) but will stop. Denioes SOB, CP, abdominal distention. He spouyse noted she slept more than usual yesterday but she reports she did not sleep well the night before. She did not weigh today bit notes she feels best 146 - 150 lbs Instructed to call [facility] w any new or worsening sx, not to wait for a PC or HV. * Telephone Encounter - [place] Kadie Earle RN - 04/24/2024 12:12 PM EDT [facility] Telephonic Nurse Follow-Up Call [facility] Subprogram: Focused Care Management (3-9 months) Follow Up Call Type: 48 hour follow up Acute issue requiring follow-up call: Acute Exacerbation of COPD Objective: 04/20/2024 3:11 PM 04/01/2024 3:13 PM 02/12/2024 2:38 PM 02/07/2024 9:51 AM 02/04/2024 4:38 PM VITALS ACROSS ENCOUNTERS BP 104/80 114/62 122/80 Pulse 60 60 61 66 Weight 67.1 kg BMI 23.9 BMI 23.9 kg/m2 Remote Patient Monitoring: NONE Oxygen Needs: NO supplemental oxygen needs identified DME Needs: NO DME needs identified Medications: Dose adjustment(s) made: Pt took her PRN furosemide 20mg 04/20,04/21,04/22 for increased edema in her legs. Subjective: Condition Status: left vm Current Concerns: Call to follow up on BLE edema post PRN furosemide. [facility]. Left Vm requesting return call. Will schedule follow up call. Can cancel if she calls back. If she calls back: wts, swelling?breathing? What dose of furosemide is she currently taking? Disposition: Weekend call scheduled Future Visits Scheduled: Future Appointments-next 60 days Date/Time Provider Specialty Dept Phone 04/29/2024 2:40 PM (Arrive by 2:25 PM) Sydney Castelan DPM Podiatry [phone] 05/05/2024 2:00 PM (Arrive by 1:45 PM) Stephanie Ramos PA-C Cardiology [phone] 05/06/2024 8:10 AM Aishwarya Dykes Mobile Home Draw Laboratory Processing [phone] 05/07/2024 6:00 AM [facility] [phone] 05/11/2024 12:50 PM (Arrive by 12:35 PM) Marilyn Ozuna PA-C Dermatology [phone] 05/14/2024 1:20 PM (Arrive by 1:05 PM) Cindy Elena DO Gastroenterology [phone] 05/28/2024 1:00 PM Cyndie Hilton RDN [facility] [phone] 06/01/2024 5:30 PM Allison Young RN [facility] [phone] 06/17/2024 11:00 AM Billy Basurto MD Hematology Oncology [phone] 07/10/2024 1:40 PM Zohaib Castillo [facility] Health Size Mixer; Kayla Thompson CRNP [facility] [phone] 08/18/2024 3:30 PM (Arrive by 3:15 PM) Hema Hercules PA-C Otolaryngology [phone] 08/26/2024 5:40 PM (Arrive by 5:25 PM) Amor Pate MD Family Medicine [phone] 09/10/2024 12:50 PM (Arrive by 12:35 PM) Marilyn Ozuna PA-C Dermatology [phone] 12/31/2024 1:00 PM (Arrive by 12:45 PM) [facility] Cardiology [phone] 02/04/2025 12:00 PM Carol Mathew PA-C Family Medicine [phone] Kadie Tellez, REGINA documented in this encounter Plan of Treatment Upcoming Encounters Date Type Department Care Team (Late st Contact Info) Description 04/25/2024 10:00 AM EDT Scheduled Telephone [facility] [address] [place] [address] [facility], Nurse [address] [place] [address] 04/29/2024 2:40 PM EDT Office Visit Podiatry, [facility] [address] [facility] [place] [address] Sydney Castelan, [facility] [address] 05/05/2024 2:00 PM EDT Office Visit Cardiology, [place] [address] [place] [address] Stephanie Ramos PA-C [address] [place] [address] 05/06/2024 8:10 AM EDT Laboratory Lab Mobile Phlebotomy [facility] [address] [place] [address] [facility], [facility] Mobile Home Draw [address] [facility] [address] 05/07/2024 6:00 AM EDT Anticoagulation Centralized Clinical Pharmacy Services, [address] [place] [address] [place] [address] 05/11/2024 12:50 PM EDT Office Visit Dermatology, [address] [place] [address] [place] [address] Marilyn Ozuna PA-C [address] [place] [address] 05/14/2024 1:20 PM EDT Office Visit Gastroenterology, [facility] [address] [facility] [place] [phone] Cindy Elena DO 132 [facility] [place] [address] 05/28/2024 1:00 PM EDT Scheduled Telephone [facility], [facility] [address] [facility] [address] Cyndie Hilton, RDN [address] [facility] [place] [address] 06/01/2024 5:30 PM EDT Home Visit [facility], [facility] 132 [place] [address] Allison Young RN 132 [place] [address] 06/17/2024 11:00 AM EST Telemedicine Hematology/Oncology, [facility] 400 [place] [address] Billy Basurto MD 400 [place] [phone] 07/10/2024 1:40 PM EST Home Visit [facility], [facility] 132 [place] [address] Kayla Thompson CRNP 132 [facility] [place] [address] Zohaib Castillo [facility] [address] [place] [address] 08/18/2024 3:30 PM EST Office Visit Otolaryngology, [place] [address] [place] [address] Hema Hercules PA-C [address] [place] [address] 08/26/2024 5:40 PM EST Office Visit Family Practice, [place] [address] [place] [phone] Amor Pate MD [address] [place] [address] 09/10/2024 12:50 PM EST Office Visit Dermatology, [place] [address] [place] [address] Marilyn Ozuna PA-C [address] [place] [address] 12/31/2024 1:00 PM EDT Cardiac Studies Cardiology, [place] [address] [place] [address] [place], [facility] [address] [facility] [place] [address] 02/04/2025 12:00 PM EDT Home Visit Care at Home [address], [place] [phone] Carol Mathew PA-C [address] [place], [place] [phone] Scheduled Procedures Name Priority Associated Diagnoses Date/Ti [...] Additional history exists CKD PHOS USE SMARTSET 49496 08/22/202408/05, 08/20/2023, 11/07/2022, Additional history exists HbA1c 10/14/2024 04/16/2024, 1212/2022, 04/01/2023 Albumin/Creatinine Ratio 12/05/2024 12/06/2023, 03/06 Adult Wellness Visit 02/03/2025 02/04/2024, 02/29/20 23 Depression Screening 02/03/2025 02/04/2024, 12/10/19 24 CKD HGB USE SMARTSET 46318 03/02/202503/02, 03/02/2024, 02/17/2024, Additional history exists DXA Scan 04/22/2025 04/22/2023, 04/05, 12/25/2018, Additional history exists Pneumococcal Vaccine: 65+ Years Completed 02/01/2016, 10/27/2002 VITAMIN D LEVEL ONCE IN A LIFETIME-USE SMARTSET# 64115 Completed 04/16/2024, 09/16/2023, 10/20/2019, Additional history exists [...] this encounter Medical Devices Implanted Type Area Switch Maker Device Identifier Shelf Expiration Date Model / Serial / Lot Implant System, Trim-It Drill Pin [id number]" X 4" Implanted:Qty: 1 on 10/10/2017 by Sydney Castelan DPM at [facility] Right: Toe 04/04/2019 AR-[id number] / / [id number] Medtronic Attesta Surescan Pacemaker Implanted:Qty: 1 on 06/09/2020 by Chanel Lin DO at OR [facility] Left: Chest 08/01/2021 ATSR01 / [id number] / Nail [id number] Left [id number] - [id number] Implanted:Qty: 1 on 01/20/2021 by Alli Townsend MD at OR [facility] Left: Hip MILAN : TRAUMA 12/03/2023 3525-034 0S / / [id number] Screw Lag 10.5x95mm - [id number] Implanted:Qty: 1 on 01/20/2021 by Alli Townsend MD at OR [facility] Left: Hip MILAN : TRAUMA 11/02/2025 3060-009 5S / / [id number] Screw T2 Alpha Lock 5x47.5mm - [id number] Implanted:Qty: 1 on 01/20/2021 by Alli Townsend MD at OR [facility] Left: Hip MILAN : TRAUMA 05/04/2029 2360-504 7S / / [id number] documented as of this encounter Advance Directives Documents on File Type Date Recorded Patient Digital Marketing Intern Expl anation POLST 07/15/2023 [place] OR [facility] TREATMENT * Full Code [...] First Alternate Health Care Agent Care Teams Pantry Worker Relationship Specialty Start Date End Date Amor Pate MD [address] [place] [address] PCP - General Family Medicine 12/06/22 documented as of this encounter
--- OUTSIDE RECORDS SUMMARY | 2024-08-18 16:21 | External Medical Summary | Summary of Care ---
Author Name Unknown Organization [facility] Address [address] [place] [address] Phone [phone] Care Team Providers Care Sales Agent Insurance Name Role Phone Amor Pate MD Primary Care Provider [phone] Reason for Visit * Reason Onset Date Comments [facility]: Acute 05/04/2024 Encounter Details Date Type Department Care Team (Late st Contact Info) Description 05/04/2024 Telephone [facility], [facility] [address] [facility] [place] [phone] Lizabeth Smith RN [address] [place] [facility] [place] [address] [facility]: Acute Allergies No known [...] in the morning. 30 Tablet 07/14/2023 Active Zjtlmvk-Lklbeekxs-Rx tamin D ER 600-40-500 MG-MG-UNIT Tablet Extended [...] morning. 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 HPI: Zulma Villar is a 88 year old female that is calling [employer] [facility] Intake to report that she [...] 05/05/2024 2:00 PM EDT Office Visit Cardiology, [place] [address] [place] [address] Stephanie Ramos PA-C [address] [place] [address] 05/06/2024 8:10 AM EDT Laboratory Lab Mobile Phlebotomy [facility] 400 [place] [address] [facility], [facility] Mobile Home Draw 400 [place] [address] 05/07/2024 6:00 AM EDT Anticoagulation Centralized Clinical Pharmacy Services, Derrek Denton [address] [place] [address] [place] [address] Ccps, [facility] [address] [place] [address] 05/11/2024 12:50 PM EDT Office Visit Dermatology, [place] [address] [place] [address] [place] [address] Marilyn Ozuna PA-C [address] [place] [address] 05/14/2024 1:20 PM EDT Office Visit Gastroenterology, Yuan Kay [place] [address] [place] [phone] Cindy Elena DO 132 [facility] [place] [address] 05/28/2024 1:00 PM EDT Scheduled Telephone [facility], [facility] [address] [facility] [place] [address] Cyndie Hilton, [place] [address] [facility] [place] [address] 06/01/2024 5:30 PM EDT Home Visit [facility] [place], [facility] 132 [facility] [place] [address] Allison Young RN 132 [facility] [place] [address] 06/17/2024 11:00 AM EST Telemedicine Hematology/Oncology, [facility] 400 [facility] [place] [address] Billy Basurto MD 400 [facility] [phone] 07/10/2024 1:40 PM EST Home Visit [facility], [facility] [address] [email or web address] [place] [address] Kayla Thompson CRNP [address] [facility] [[email or web address] [place] [address] Zohaib Castillo [facility] Health Maintenance Mgr [address] [place] [address] 08/18/2024 3:30 PM EST Office Visit Otolaryngology, Adwoa Lozada [place] [address] [place] [address] Hema Hercules PA-C [address] [place] [address] 08/26/2024 5:40 PM EST Office Visit Family [facility], [place] [address] [place] [phone] Amor Pate MD 21 [place] [address] 09/10/2024 12:50 PM EST Office Visit Dermatology, [place] [place] [address] [facility] 140 [place] [address] Marilyn Ozuna PA-C [address] [place] [address] 12/31/2024 1:00 PM EDT Cardiac Studies Cardiology, [place] 400 [facility] [place] [address] [facility] 400 [facility] [place] [address] 02/04/2025 12:00 PM EDT Home Visit [facility] at Home [address], [place] [phone] Carol Mathew PA-C [address] [place], [place] [phone] Scheduled Procedures Name Priority Associated Diagnoses Date/Ti [...] Additional history exists CKD PHOS USE SMARTSET 83153 08/22/202408/05, 08/20/2023, 11/07/2022, Additional history exists HbA1c 10/14/2024 04/16/2024, 1212/2022, 04/01/2023 Albumin/Creatinine Ratio 12/05/2024 12/06/2023, 0803/2023 Adult Wellness Visit 02/03/2025 02/04/2024, 02/29/20 23 Depression Screening 02/03/2025 02/04/2024, 12/10/19 24 CKD HGB USE SMARTSET 86357 03/02/202503/02, 03/02/2024, 02/17/2024, Additional history exists DXA Scan 04/22/2025 04/22/2023, 04/05, 12/25/2018, Additional history exists Pneumococcal Vaccine: 65+ Years Completed 02/01/2016, 10/27/2002 VITAMIN D LEVEL ONCE IN A LIFETIME-USE SMARTSET# 15589 Completed 04/16/2024, 09/16/2023, 10/20/2019, Additional history exists [...] this encounter Medical Devices Implanted Type Area Hadoop Consultant Device Identifier Shelf Expiration Date Model / Serial / Lot Implant System, Trim-It Drill Pin [id number](.078" X 4" Implanted:Qty: 1 on 10/10/2017 by Sydney Castelan DPM at OR [facility] Right: Toe 04/04/2019 AR-4152DS / / [id number] Medtronic Attesta Surescan Pacemaker Implanted:Qty: 1 on 06/09/2020 by Chanel Lin DO at OR [facility] Left: Chest 08/01/2021 ATSR01 / [id number] / Nail [id number] Left [id number] - [id number] Implanted:Qty: 1 on 01/20/2021 by Alli Townsend MD at OR [facility] Left: Hip MILAN : TRAUMA 12/03/2023 3525-034 0S / / [id number] Screw Lag 10.5x95mm - [id number] Implanted:Qty: 1 on 01/20/2021 by Alli Townsend MD at OR [facility] Left: Hip MILAN : TRAUMA 11/02/2025 3060-009 5S / / [id number] Screw T2 Alpha Lock 5x47.5mm - [id number] Implanted:Qty: 1 on 01/20/2021 by Alli Townsend MD at OR [facility] Left: Hip MILAN : TRAUMA 05/04/2029 2360-504 7S / / [id number] documented as of this encounter Advance Directives Documents on File Type Date Recorded Patient Emotional Disabilities Teacher Expl anation POLST 07/15/2023 [place] OR [facility] FOR LIFE-SUSTAINING TREATMENT [...] Alternate Health Care Agent Care Teams Sales Agent Insurance Relationship Specialty Start Date End Date Amor Pate MD [address] [place] [address] PCP - General Family Medicine 12/06/22 documented as of this encounter
--- OUTSIDE RECORDS SUMMARY | 2024-08-18 16:21 | External Medical Summary | Summary of Care ---
Author Name Unknown Organization [facility] Address [address] [place] [address] Phone [phone] Care Team Providers Care Travel Registered Nurse Oncology Name Role Phone Amor Pate MD Primary Care Provider [phone] Reason for Visit * Reason Onset Date Comments [facility]: Maintenance 04/24/2024 Encounter Details Date Type Department Care Team (Late st Contact Info) Description 04/24/2024 9:30 AM EDT Scheduled Telephone [facility], [facility] 132 [facility] [place] [address] Coordinator, [facility] 132 [place] [address] Allergies No known active allergiesdocumented as of [...] in the morning. 30 Tablet 07/14/2023 Active Lqevszt-Igoakxtpw-Py tamin D ER 600-40-500 MG-MG-UNIT Tablet Extended [...] morning. 45 Tablet 3 12/25/2023 Active Nystatin 510418 UNIT/GM External CreamIndications:Can didal intertrigo Apply topically [...] multicystic lesion of the pancreas CEA, FLUID 40182.0 ng/mL Final COMMENT Final The reference range [...] 06/18/2013 Last Assessment & Plan: S/p pacemaker penitentiary current use of anticoagulant therapy 0 08/28/2010 [...] patient does not have a Power of Learning Designer or Advanced Directives in place at this [...] Telephone Encounter - Kadie Tellez RN - 04/24/2024 12:12 PM EDT [facility] Telephonic Nurse Follow-Up Call [facility] Subprogram: Focused Care Management (3-9 months) Follow [...] up on BLE edema post PRN furosemide. [facility]. Left Vm requesting return call. Will schedule follow up call. Can cancel if she calls back. If she calls back: wts, swelling?breathing? What dose of furosemide is she currently taking? Disposition: Weekend call scheduled Future Visits Scheduled: Future Appointments-next 60 days Date/Time Provider Specialty Dept Phone 04/29/2024 2:40 PM (Arrive by 2:25 PM) Sydney Castelan DPM Podiatry [phone] 05/05/2024 2:00 PM (Arrive by 1:45 PM) Stephanie Ramos PA-C Cardiology [phone] 05/06/2024 8:10 AM [facility], [facility] Mobile Home Draw Laboratory Processing [phone] 05/07/2024 6:00 AM [facility] [phone] 05/11/2024 12:50 PM (Arrive by 12:35 PM) Marilyn Ozuna PA-C Dermatology [phone] 05/14/2024 1:20 PM (Arrive by 1:05 PM) Cindy Elena DO Gastroenterology [phone] 05/28/2024 1:00 PM Cyndie Hilton RDN [facility] [phone] 06/01/2024 5:30 PM Allison Young RN [facility] [phone] 06/17/2024 11:00 AM Billy Basurto MD Hematology Oncology [phone] 07/10/2024 1:40 PM Zohaib Castillo [facility] Health Dry Kiln Operator Helper; Kayla Thompson CRNP [facility] [phone] 08/18/2024 3:30 PM (Arrive by 3:15 PM) Hema Hercules PA-C Otolaryngology [phone] 08/26/2024 5:40 PM (Arrive by 5:25 PM) Amor Pate MD Family Medicine [phone] 09/10/2024 12:50 PM (Arrive by 12:35 PM) Marilyn Ozuna PA-C Dermatology [phone] 12/31/2024 1:00 PM (Arrive by 12:45 PM) [facility] Cardiology [phone] 02/04/2025 12:00 PM Carol Mathew PA-C Family Medicine [phone] Kadie Tellez, RN documented in this encounter Plan of Treatment Upcoming Encounters Date Type Department Care Team (Late st Contact Info) Description 04/25/2024 10:[address] [facility] 132 [facility] [place] [address] [facility] [address] [facility] [place] [address] 04/29/2024 2:40 PM EDT Office Visit Podiatry, [address] [place] [address] Sydney Castelan DPM [address] [place], [place] [address] [address] 05/05/2024 2:00 PM EDT Office Visit Cardiology, [address] [place] [address] Stephanie Ramos PA-C [address] [place] [address] [place] [address] 05/06/2024 8:10 AM EDT Laboratory Lab Mobile Phlebotomy [address] [place] [address] Gl, [facility] Mobile Home Draw [address] [place] [address] 05/07/2024 6:00 AM EDT Anticoagulation Centralized Clinical Pharmacy Services, Derrek Denton [address] [place] [address] [place] [address] Ccps, [address] [place] [address] 05/11/2024 12:50 PM EDT Office Visit Dermatology, Adwoa Peter [place] [address] [facility] 140 [place] [address] Marilyn Ozuna PA-C [address] [place] [address] 05/14/2024 1:20 PM EDT Office Visit Gastroenterology, [place] [address] [place] [address] Cindy Elena DO 132 [facility] [place] [address] 05/28/2024 1:00 PM EDT Scheduled Telephone [facility], [facility] [address] [facility] [place] [address] Cyndie Hilton RDN [address] [facility] [place] [address] 06/01/2024 5:30 PM EDT Home Visit [facility], [facility] 132 [facility] [place] [address] Allison Young, RN 132 [facility] [place] [address] 06/17/2024 11:00 AM EST Telemedicine Hematology/Oncology, [facility] 400 [facility] [place] [address] Billy Basurto MD 400 [facility] [place] [address] 07/10/2024 1:40 PM EST Home Visit [facility] 132 [place] [address] Kayla Thopmson CRNP [address] [facility] [place] [address] Zohaib Castillo, Community [facility] Dry Kiln Operator Helper [address] [place] [address] 08/18/2024 3:30 PM EST Office Visit Otolaryngology, [place] 27 [place] [address] Hema Hercules PA-C 27 [address] [place] [address] 08/26/2024 5:40 PM EST Office Visit Family [facility], [place] 21 [facility] [place] [address] Amor Pate MD 21 [facility] [place] [address] 09/10/2024 12:50 PM EST Office Visit Dermatology, [place]woa [place] 27 [address] [place]oz[address] [facility] 140 [place] [address] Marilyn Ozuna PA-C 27 [place] [address] 12/31/2024 1:00 PM EDT Cardiac Studies Cardiology, [place] 400 [facility] [place] [address] [place], [facility] [address] [place] [address] 02/04/2025 12:00 PM EDT Home Visit Care at Home [address] [facility] [place] [address] Carol Mathew PA-C [address] [facility] [place] [address] Scheduled Procedures Name Priority Associated Diagnoses Date/Ti [...] (3 - 2023- season) 2024 10/26/2020, 09/30/2020 Influenza Vaccine (FLU shot) (#1) 2024 04/29/2023, 05/28/2022, 05/18/2021, Additional history exists Diabetic Eye Exam 06/19/2024 06/19/2023, , 01/12/2019, Additional history exists CKD PHOS USE SMARTSET 41038 08/22/202408/05, 08/20/2023, 11/07/2022, Additional history exists HbA1c 10/14/2024 04/16/2024, 1212/2022, 04/01/2023 Albumin/Creatinine Ratio 12/05/2024 12/06/2023, 03/06 Adult Wellness Visit 02/03/2025 02/04/2024, 02/29/20 23 Depression Screening 02/03/2025 02/04/2024, 12/10/19 24 CKD HGB USE SMARTSET 91604 03/02/202503/02, 03/02/2024, 02/17/2024, Additional history exists DXA Scan 04/22/2025 04/22/2023, 04/05, 12/25/2018, Additional history exists Pneumococcal Vaccine: 65+ Years Completed 02/01/2016, 10/27/2002 VITAMIN D LEVEL ONCE IN A LIFETIME-USE SMARTSET# 64156 Completed 04/16/2024, 09/16/2023, 10/20/2019, Additional history exists [...] this encounter Medical Devices Implanted Type Area Crab Steamer Device Identifier Shelf Expiration Date Model / Serial / Lot Implant System, Trim-It Drill Pin [id number]" X 4" Implanted:Qty: 1 on 10/10/2017 by Sydney Castelan DPM at OR [facility] Right: Toe 04/04/2019 AR-[id number] / / [id number] Medtronic Attesta Surescan Pacemaker Implanted:Qty: 1 on 06/09/2020 by Chanel Lin DO at OR [facility] Left: Chest 08/01/2021 ATSR01 / [id number] / Nail [id number] Left [id number] - [id number] Implanted:Qty: 1 on 01/20/2021 by Alli Townsend MD at OR [facility] Left: Hip MILAN : TRAUMA 12/03/2023 3525-034 0S / / [id number] Screw Lag 10.5x95mm - [id number] Implanted:Qty: 1 on 01/20/2021 by Alli Townsend MD at OR [facility] Left: Hip MILAN : TRAUMA 11/02/2025 3060-009 5S / / [id number] Screw T2 Alpha Lock 5x47.5mm - [id number] Implanted:Qty: 1 on 01/20/2021 by Alli Townsend MD at OR [facility] Left: Hip MILAN : TRAUMA 05/04/2029 2360-504 7S / / [id number] documented as of this encounter Advance Directives Documents on File Type Date Recorded Patient Purchasing Analyst Expl shasha OLIVO 07/15/2023 [place] [facility] FOR [...] Care Agent Care Teams Travel Registered Nurse Oncology Relationship Specialty Start Date End Date Amor Pate MD 21 [place] [address] PCP - General Family Medicine 12/06/22 documented as of this encounter
--- OUTSIDE RECORDS SUMMARY | 2024-08-18 16:21 | External Medical Summary | Summary of Care ---
Author Name Unknown Organization [facility] Address [address] [place] [address] Phone [phone] Care Team Providers Care Events Associate Name Role Phone Amor Pate MD Primary Care Provider [phone] Reason for Visit * Reason Onset Date Comments [facility]: Acute 04/25/2024 Encounter Details Date Type Department Care Team (Late st Contact Info) Description 04/25/2024 10:00 AM EDT Scheduled Telephone [facility], [facility] [address] [place] [address] [facility], Nurse [facility] [address] [place] [address] Allergies No known active allergiesdocumented as of this encounter (statuses as of 04/25/2024) Medications Medication Sig Dispensed Refills Start Date [...] in the morning. 30 Tablet 07/14/2023 Active Xoblqwd-Eivnxcfln-Oj tamin D ER 600-40-500 MG-MG-UNIT Tablet Extended [...] morning. 45 Tablet 3 12/25/2023 Active Nystatin 602409 UNIT/GM External CreamIndications:Can didal intertrigo Apply topically [...] as of this encounter (statuses as of 04/25/2024) Active Problems Problem Noted Date Diagnosed Date [...] multicystic lesion of the pancreas CEA, FLUID 32029.0 ng/mL Final COMMENT Final The reference range [...] Last Assessment & Plan: S/p pacemaker intermediate manager current use of anticoagulant therapy 0 08/28/2010 [...] does not have a Power of Manager Developmental or Advanced Directives in place at this [...] as of this encounter (statuses as of 04/25/2024) Resolved Problems Problem Noted Date Diagnosed Date [...] as of this encounter (statuses as of 04/25/2024) Immunizations Name Administration Dates Next Due COVID-19 [...] encounter Miscellaneous Notes * Telephone Encounter - Rodrigo White RN - 04/25/2024 11:01 AM EDT [facility] Telephonic Nurse Follow-Up Call [facility] Subprogram: Focused Care Management (3-9 months) Follow Up Call Type: Weekend Call Acute issue requiring follow-up call: Heart Failure Exacerbation Objective: 04/20/2024 3:11 PM 04/01/2024 3:13 PM 02/12/2024 2:38 PM 02/07/2024 9:51 AM 02/04/2024 4:38 PM VITALS ACROSS ENCOUNTERS BP 104/80 114/62 122/80 Pulse 60 60 61 66 Weight 67.1 kg BMI 23.9 BMI 23.9 kg/m2 Remote Patient Monitoring: NONE Oxygen Needs: NO supplemental oxygen needs identified DME Needs: NO DME needs identified Medications: Pt took PRN Lasix 20 mg 04/20, 04/21, 04/22, 04/23, 04/24 for increased BLE edema Subjective: Condition Status: Improvement in symptoms but not at baseline Current Concerns: Pt has order for Lasix 20 mg as needed for edema, swelling. Pt has taken Lasix 20 mg for last 5 days Pt weighs self while on phone with this RN. Pt states weight is 148 lb but pt believes dry weight is 146 lb Pt states BLE remain swollen, reports BLE are better than before taking Lasix, however pt reports "are not back to normal." Pt states that she plans to take PRN Lasix 20 mg again today to attempt to get BLE edema down to "normal." Pt reports will feel better if she can get BLE to decrease a bit more Denies SOB, cough, GARCIA above baseline, abdominal distension. Pt noted feeling weak upon awakening this AM, but states since getting OOB has felt better, denies weakness at time of call. Pt denies dizziness, lightheadedness, blurry vision, falls. Encouraged pt to sit with legs elevated above heart level and restrict Na in diet. Reinforced to call [facility] at [phone] with any red flags, changes in condition, or concerns. Pt verbalizes understanding. Asked pt to take weight again tomorrow AM, and advised not to take PRN Lasix 20 mg tomorrow until speaking with [facility], as they will be calling pt tomorrow. Pt verbalized understanding. Disposition: Weekend call scheduled Future Visits Scheduled: Future Appointments-next 60 days Date/Time Provider Specialty Dept Phone 04/29/2024 2:40 PM (Arrive by 2:25 PM) Sydney Castelan DPM Podiatry [phone] 05/05/2024 2:00 PM (Arrive by 1:45 PM) Stephanie Ramos PA-C Cardiology [phone] 05/06/2024 8:10 AM [facility] Mobile Home Draw Laboratory Processing [phone] 05/07/2024 6:00 AM [facility] [phone] 05/11/2024 12:50 PM (Arrive by 12:35 PM) Marilyn Ozuna PA-C Dermatology [phone] 05/14/2024 1:20 PM (Arrive by 1:05 PM) Cindy Elena DO Gastroenterology [phone] 05/28/2024 1:00 PM Cyndie Hilton RDN [facility] [phone] 06/01/2024 5:30 PM Allison Young RN [facility] [phone] 06/17/2024 11:00 AM Billy Basurto MD Hematology Oncology [phone] 07/10/2024 1:40 PM Zohaib Castillo [facility] [place]; Kayla Thompson CRNP [facility] [phone] 08/18/2024 3:30 PM (Arrive by 3:15 PM) Hema Hercules PA-C Otolaryngology [phone] 08/26/2024 5:40 PM (Arrive by 5:25 PM) Amor aPte MD Family Medicine [phone] 09/10/2024 12:50 PM (Arrive by 12:35 PM) Marilyn Ozuna PA-C Dermatology [phone] 12/31/2024 1:00 PM (Arrive by 12:45 PM) [facility] Cardiology [phone] 02/04/2025 12:00 PM Carol Mathew PA-C Family Medicine [phone] Rodrigo White, REGINA documented in this encounter Plan of Treatment Upcoming Encounters Date Type Department Care Team (Late st Contact Info) Description 04/29/2024 2:40 PM EDT Office Visit Podiatry, [facility] [address] [place] [address] Sydney Castelan DPM 400 [facility] [place] [id number] 05/05/2024 2:00 PM EDT Office Visit Cardiology, [place] [address] [place] [address] Stephanie Ramos PA-C [address] [place] [address] 05/06/2024 8:10 AM EDT Laboratory Lab Mobile Phlebotomy [facility] [address] [place] [address] Gl, l Mobile Home Draw [address] [place] [address] 05/07/2024 6:00 AM EDT Anticoagulation Centralized Clinical Pharmacy Services, [address] [place] [address] [facility], [address] [place] [address] 05/11/2024 12:50 PM EDT Office Visit Dermatology, Adwo[place] 27 [facility] 140 [place] [address] Marilyn Ozuna PA-C 27 [facility] [place] [address] 05/14/2024 1:20 PM EDT Office Visit Gastroenterology, [place] [address] [place] [address] Cindy Elena, DO [address] [place] [address] 05/28/2024 1:00 PM EDT Scheduled Telephone [facility], [facility] [address] [place] [address] Cyndie Hilton, [place] [address] [place] [address] 06/01/2024 5:30 PM EDT [facility] Visit [facility] 132 [facility] [place] [address] Allison Young RN 132 [place] [address] 06/17/2024 11:00 AM EST Telemedicine Hematology/Oncology, [facility] 400 [place] [address] Billy Basurto MD 400 [place] [address] 07/10/2024 1:40 PM EST [facility] Visit [facility] 132 [place] [address] Kayla Thompson CRNP 132 [place] [address] Zohaib Castillo, [facility] [place] 100 [place] [address] 08/18/2024 3:30 PM EST Office Visit Otolaryngology, [place] 27 [place] [address] Hema Hercules PA-C 27 [place] [address] 08/26/2024 5:40 PM EST Office Visit Family [facility], [place] 21 [place] [phone] Amor Pate MD [address] [place] [address] 09/10/2024 12:50 PM EST Office Visit Dermatology, Adwoa [place] 27 [address] [place] 140 [place] [address] Marilyn Ozuna PA-C [address] [place] [place] [address] 12/31/2024 1:00 PM EDT Cardiac Studies Cardiology, [place] 400 [facility] [place] [address] [place] 400 [facility] [place] [address] 02/04/2025 12:00 PM EDT Home Visit Care at Home [address] [place], [place] [phone] Carol Mathew PA-C [address] [place], [place] [id number] Scheduled Procedures Name Priority Associated Diagnoses Date/Ti [...] Additional history exists CKD PHOS USE SMARTSET 46277 08/22/202408/05, 08/20/2023, 11/07/2022, Additional history exists HbA1c 10/14/2024 04/16/2024, 120 12/2022, 04/01/2023 Albumin/Creatinine Ratio 12/05/2024 12/06/2023, 03/06 Adult Wellness Visit 02/03/2025 02/04/2024, 02/29/20 23 Depression Screening 02/03/2025 02/04/2024, 12/10/19 24 CKD HGB USE SMARTSET 27552 03/02/202503/02, 03/02/2024, 02/17/2024, Additional history exists DXA Scan 04/22/2025 04/22/2023, 04/05, 12/25/2018, Additional history exists Pneumococcal Vaccine: 65+ Years Completed 02/01/2016, 10/27/2002 VITAMIN D LEVEL ONCE IN A LIFETIME-USE SMARTSET# 98308 Completed 04/16/2024, 09/16/2023, 10/20/2019, Additional history exists [...] this encounter Medical Devices Implanted Type Area Sports Therapist Device Identifier Shelf Expiration Date Model / Serial / Lot Implant System, Trim-It Drill Pin [id number]" X 4" Implanted:Qty: 1 on 10/10/2017 by Sydney Castelan DPM at OR [facility] Right: Toe 04/04/2019 AR-[id number] / / [id number] Medtronic Attesta Surescan Pacemaker Implanted:Qty: 1 on 06/09/2020 by Chanel Lin DO at OR [facility] Left: Chest 08/01/2021 ATSR01 / [id number] / Nail [id number] Left [id number] - [id number] Implanted:Qty: 1 on 01/20/2021 by Alli Townsend MD at OR [facility] Left: Hip MILAN : TRAUMA 12/03/2023 3525-034 0S / / [id number] Screw Lag 10.5x95mm - [id number] Implanted:Qty: 1 on 01/20/2021 by Alli Townsend MD at OR [facility] Left: Hip MILAN : TRAUMA 11/02/2025 3060-009 5S / / [id number] Screw T2 Alpha Lock 5x47.5mm - [id number] Implanted:Qty: 1 on 01/20/2021 by Alli Townsend MD at OR [facility] Left: Hip MILAN : TRAUMA 05/04/2029 2360-504 7S / / [id number] documented as of this encounter Advance Directives Documents on File Type Date Recorded Patient Transportation Manager Expl anation POLST 07/15/2023 [place] OR [facility] FOR LIFE-SUSTAINING TREATMENT [...] [place] Spouse First Alternate Health Care Agent Alondradameon Babin Adult Child First Alternate Health Care Agent Care Teams Events Associate Relationship Specialty Start Date End Date Amor Pate MD 21 [place] [id number] PCP - General Family Medicine 12/06/22 documented as of this encounter
--- OUTSIDE RECORDS SUMMARY | 2024-08-18 16:21 | External Medical Summary | Summary of Care ---
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 Abelardo Comments Documentation of Ffot-ku-Zjaz Encounter Addendum Patient Name: Zulma Villar I certify that this patient is under my care and that I, or a nurse practitioner or physician's wet process assistant head miller working with me, had a pakg-ro-ukka encounter that meets the physician hrsi-vk-lqtd encounter requirements with this patient on: 04/01/24 [...] effort and are for medical reasons or mu-ism services or infrequently or of short duration when for other reason) because: High fall risk, poor activity tolerance. Physician Signature: Date of Signature: Physician Printed Name: MAGDALENA Mendoza Reason for Visit * Reason Onset Date Comments [facility]: Acute 05/04/2024 Encounter Details Date Type Department Care Team (Late st Contact Info) Description 05/04/2024 Telephone [facility], [facility] [address] [place] [address] Lizabeth Smith RN [address] [place] [facility] [address] [facility]: Acute Allergies No known [...] in the morning. 30 Tablet 07/14/2023 Active Lirhmas-Vprobsomn-Gg tamin D ER 600-40-500 MG-MG-UNIT Tablet Extended [...] morning. 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 (Household - [...] similar dressing every 3 days until healed. [facility] scheduling--please fax referral. * Telephone Encounter - Lizabeth Smith RN - 05/04/2024 12:38 PM EDT Images from the original note were not included. [facility] Call Date: 05/04/2024 Time: 12:39 PM Name: Zulma Villar : 1935 Caller: Zulma Relationship to self No chief complaint on file. HPI: Zulma Villar is a 88 year old female that is calling [facility] to report that she has a stage 1 ulcer on her buttock that was causing her pain this morning and reports it was bleeding. Caregiver took picture and cleansed area and applied new dressing. Caregiver will be back at 1pmtoday and will send picture to Intake nurse. [...] 05/05/2024 2:00 PM EDT Office Visit Cardiology, [place] [address] [place] [address] Stephanie Ramos PA-C [address] [place] [address] 05/06/2024 8:10 AM EDT Laboratory Lab Mobile Phlebotomy GL [address] [place] [address] [facility], [facility] Mobile Home Draw [address] [place] [address] 05/07/2024 6:00 AM EDT Anticoagulation Centralized Clinical Pharmacy Services, [place] [address] [place] [address] [place] [address] [place] [address] 05/11/2024 12:50 PM EDT Office Visit Dermatology, [place] [address] [facility] [address] [place] [address] Marilyn Ozuna PA-C [address] [place] [address] 05/14/2024 1:20 PM EDT Office Visit Gastroenterology, Meryl [place] [address] [place] [phone] Cindy Elena, DO [address] [facility] [place] [address] 05/28/2024 1:00 PM EDT Scheduled Telephone [facility], [facility] [address] [facility] [place] [address] Yobani Cyndie Scarlett, RDN [address] [facility] [place] [address] 06/01/2024 5:30 PM EDT Home Visit [facility], [facility] [address] [facility] [place] [address] Allison Young RN [address] [facility] [place] [address] 06/17/2024 11:00 AM EST Telemedicine Hematology/Oncology, [facility] [address] [place] [address] Billy Basurto MD [address] [place] [phone] 07/10/2024 1:40 PM EST Home Visit [facility], [facility] [address] [facility] [place] [address] Kayla Thompson CRNP [address] [place] [address] Zohaib Castillo [facility] [address] [place] [address] 08/18/2024 3:30 PM EST Office Visit Otolaryngology, [place] [address] [place] [address] Hema Hercules PA-C [address] [place] [address] 08/26/2024 5:40 PM EST Office Visit Family [facility], [place] [address] [place] [phone] Amor Pate MD [address] [place] [address] 09/10/2024 12:50 PM EST Office Visit Dermatology, [place] [address] [place] [address] Marilyn Ozuna PA-C [address] [place] [address] 12/31/2024 1:00 PM EDT Cardiac Studies Cardiology, [place] [address] [facility] [place] [address] [place] [address] [place] [address] 02/04/2025 12:00 PM EDT Home Visit Care at Home [address] [place], [place] [id number] Carol Mathew PA-C [address] [place] [address] Scheduled Procedures Name Priority Associated Diagnoses Date/Ti [...] Additional history exists CKD PHOS USE SMARTSET 01623 08/22/202408/05, 08/20/2023, 11/07/2022, Additional history exists HbA1c 10/14/2024 04/16/2024, 12/2022, 04/01/2023 Albumin/Creatinine Ratio 12/05/2024 12/06/2023, 03/06 Adult Wellness Visit 02/03/2025 02/04/2024, 02/29/20 23 Depression Screening 02/03/2025 02/04/2024, 12/10/19 24 CKD HGB USE SMARTSET 91947 03/02/202503/02, 03/02/2024, 02/17/2024, Additional history exists DXA Scan 04/22/2025 04/22/2023, 04/05, 12/25/2018, Additional history exists Pneumococcal Vaccine: 65+ Years Completed 02/01/2016, 10/27/2002 VITAMIN D LEVEL ONCE IN A LIFETIME-USE SMARTSET# 40378 Completed 04/16/2024, 09/16/2023, 10/20/2019, Additional history exists [...] this encounter Medical Devices Implanted Type Area Decoration Checker Device Identifier Shelf Expiration Date Model / Serial / Lot Implant System, Trim-It Drill Pin [id number]" X 4" Implanted:Qty: 1 on 10/10/2017 by Sydney Castelan DPM at OR [facility] Right: Toe 04/04/2019 AR-[id number] / / [id number] Medtronic Attesta Surescan Pacemaker Implanted:Qty: 1 on 06/09/2020 by Chanel Lin DO at OR [facility] Left: Chest 08/01/2021 ATSR01 / [id number] / Nail Gamma3 Left [id number] - [id number] Implanted:Qty: 1 on 01/20/2021 by Alli Townsend MD at OR [facility] Left: Hip MILAN : TRAUMA 12/03/2023 3525-034 0S / / [id number] Screw Lag 10.5x95mm - [id number] Implanted:Qty: 1 on 01/20/2021 by Alli Townsend MD at OR [facility] Left: Hip MILAN : TRAUMA 11/02/2025 3060-009 5S / / [id number] Screw T2 Alpha Lock 5x47.5mm - [id number] Implanted:Qty: 1 on 01/20/2021 by Alli Townsend MD at OR [facility] Left: Hip MILAN : TRAUMA 05/04/2029 2360-504 7S / / [id number] documented as of this encounter Visit Diagnoses Diagnosis 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
--- OUTSIDE RECORDS SUMMARY | 2024-08-18 16:21 | External Medical Summary | Summary of Care ---
Author Name Unknown Organization [facility] Address [address] [place] [address] Phone [phone] Care Team Providers Care Manager Intelligence Name Role Phone Amor Pate MD Primary Care Provider [phone] [phone] Reason for Visit * Reason Comments Dosage Adjustment Via Phone (anticoag Cl inic) Encounter Details Date Type Department Care Team (Late st Contact Info) Description 04/23/2024 6:00 AM EDT Anticoagulation Centralized Clinical Pharmacy Services, [place] [address] [place] [address] [place] [address] [place] [address] joint terminal attack controller current use of anticoagulant therapy* Allergies No known active allergiesdocumented as of this encounter (statuses as of 04/23/2024) Medications Medication Sig Dispensed Refills Start Date [...] in the morning. 30 Tablet 07/14/2023 Active Humcvuz-Dzivxggxb-Fk tamin D ER 600-40-500 MG-MG-UNIT Tablet Extended [...] morning. 45 Tablet 3 12/25/2023 Active Nystatin 423592 UNIT/GM External CreamIndications:Can didal intertrigo Apply topically [...] as of this encounter (statuses as of 04/23/2024) Active Problems Problem Noted Date Diagnosed Date [...] multicystic lesion of the pancreas CEA, FLUID 35431.0 ng/mL Final COMMENT Final The reference range [...] does not have a Power of Farm Loan Inspector or Advanced Directives in place at [...] as of this encounter (statuses as of 04/23/2024) Resolved Problems Problem Noted Date Diagnosed Date [...] 11/03/2022 04/01/2023 Last Assessment & Plan: PCP ykra bartholomew yesteday Has home health SN Seeing [...] 06/29/19 2:25P 06/29/19 10.5* FINAL 04/07/19 11:21A 9/3/19 9.8* FINAL HGB(g/dL) Rd Dt/Tm Resulted Value [...] as of this encounter (statuses as of 04/23/2024) Immunizations Name Administration Dates Next Due COVID-19 [...] as of this encounter Progress Notes * HaydeeAriella starks [place], [facility] - 04/23/2024 10:33 AM EDT Contacts Contact Date/Time Type Contact Phone/Fax 04/23/2024 10:31 AM EDT Phone (Outgoing) Zulma Villar (Self) [phone] (H) Spoke to Patient Subjective Patient Findings [...] date communicated as noted by Pharmacist: Yes ARIELLA MOORE CPhT 04/23/2024, 10:33 AM * Kadie Byers RPh - 04/23/2024 8:32 AM EDT Coumadin Clinic (region specific) Objective Current Warfarin Dose As of 04/23/2024 Warfarin maintenance plan: 4 mg (2 mg x 2) every Fri; 2 mg (2 mg x 1) all other days INR Result As of 04/23/2024 INR goal: 2.0-3.0 INR used for dosin.3 (04/22/2024) Assessment & Plan Warfarin Plan As of 04/23/2024 Full warfarin instructions: 4 mg every Fri; 2 mg all other days No change documented: Kadie Byers RPh Next INR check: 05/06/2024 Repeat PT/INR in 2 week(s) Weekly dose: not changed Additional Dosing Information: Description [facility] Lorraine Shethwn fax [phone] Boost- 1/day Tech to contact patient with dose instructions as noted. Kadie Byers RPh 04/23/2024, 8:32 AM documented in this encounter Plan of Treatment Upcoming Encounters Date Type Department Care Team (Late st Contact Info) Description 04/24/2024 9:30 AM EDT Scheduled Telephone [facility] [address] [place] [address] Coordinator, [facility] [place] [address] [place] [address] 04/29/2024 2:40 PM EDT Office Visit Podiatry, [facility] [address] [place] [address] Sydney Castelan, DPM [address] [place] [address] 05/05/2024 2:00 PM EDT Office Visit Cardiology, [place] [address] [place] [address] Stephanie Ramos PA-C [address] [place] [address] 05/11/2024 12:50 PM EDT [facility] [address] [place] [address] Marilyn Ozuna PA-C [address] [place] [address] 05/14/2024 1:20 PM EDT Office Visit Gastroenterology, [facility] [address] [place] [address] Cindy Elena DO 132 [facility] [place] [address] 05/28/2024 1:00 PM EDT Scheduled Telephone [facility], [facility] [address] [facility] [place] [address] Cyndie Hilton, TEMON [address] [facility] [place] [address] 06/01/2024 5:30 PM EDT Home Visit [facility], [facility] [address] [facility] [place] [address] Allison Young, RN 132 [facility] [place] [address] 06/17/2024 11:00 AM EST Telemedicine Hematology/Oncology, [facility] [address] [facility] [place] [address] Billy Basurto MD [address] [facility] [place] [address] 07/10/2024 1:40 PM EST Home Visit [facility], [facility] [address] [facility] [place] [address] Kayla Thompson CRNP [address] [place] [address] Zohaib Castillo, [facility] Associate [address] [place] [address] 08/18/2024 3:30 PM EST Office Visit Otolaryngology, [place] [address] [place] [address] Hema Hercules PA-C [address] [place] [address] 08/26/2024 5:40 PM EST Office Visit [facility], [place] [facility] [address] Amor Pate MD 21 [facility] [place] [address] 09/10/2024 12:50 PM EST Office Visit Dermatology, [place] [address] [facility] [address] [place] [address] Marilyn Ozuna PA-C [address] [place] [address] 12/31/2024 1:00 PM EDT Cardiac Studies Cardiology, [place] [address] [facility] [place] [address] [place], Pacer [facility] [address] [place] [address] 02/04/2025 12:00 PM EDT Home Visit [facility] at Home [address] [facility] [place] [address] Carol Mathew PA-C [address] [place] [address] Scheduled Procedures Name Priority Associated Diagnoses Date/Ti [...] Additional history exists CKD PHOS USE SMARTSET 62108 08/22/202408/05, 08/20/2023, 11/07/2022, Additional history exists HbA1c 10/14/2024 04/16/2024, 1212/2022, 04/01/2023 Albumin/Creatinine Ratio 12/05/2024 12/06/2023, 03/06 Adult Wellness Visit 02/03/2025 02/04/2024, 02/29/20 23 Depression Screening 02/03/2025 02/04/2024, 12/10/19 24 CKD HGB USE SMARTSET 76780 03/02/202503/02, 03/02/2024, 02/17/2024, Additional history exists DXA Scan 04/22/2025 04/22/2023, 04/05, 12/25/2018, Additional history exists Pneumococcal Vaccine: 65+ Years Completed 02/01/2016, 10/27/2002 VITAMIN D LEVEL ONCE IN A LIFETIME-USE SMARTSET# 59336 Completed 04/16/2024, 09/16/2023, 10/20/2019, Additional history exists [...] this encounter Medical Devices Implanted Type Area Biomass Facilitator Device Identifier Shelf Expiration Date Model / Serial / Lot Implant System, Trim-It Drill Pin [id number]" X 4" Implanted:Qty: 1 on 10/10/2017 by Sydney Castelan DPM at OR [facility] Right: Toe 04/04/2019 AR-[id number] / / [id number] Medtronic Attesta Surescan Pacemaker Implanted:Qty: 1 on 06/09/2020 by Chanel Lin DO at OR [facility] Left: Chest 08/01/2021 ATSR01 / [id number] / Nail Gamma3 Left [id number] - [id number] Implanted:Qty: 1 on 01/20/2021 by Alli Townsend MD at OR [facility] Left: Hip MILAN : TRAUMA 12/03/2023 3525-034 0S / / [id number] Screw Lag 10.5x95mm - [id number] Implanted:Qty: 1 on 01/20/2021 by Alli Townsend MD at OR [facility] Left: Hip MILAN : TRAUMA 11/02/2025 3060-009 5S / / [id number] Screw T2 Alpha Lock 5x47.5mm - [id number] Implanted:Qty: 1 on 01/20/2021 by Alli Townsend MD at OR [facility] Left: Hip MILAN : TRAUMA 05/04/2029 2360-504 7S / / [id number] documented as of this encounter Visit Diagnoses Diagnosis 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
--- OUTSIDE RECORDS SUMMARY | 2024-08-18 16:22 | External Medical Summary | Summary of Care ---
Author Name Unknown Organization [facility] Address [address] [place] [address] Phone [phone] Care Team Providers Care Burrer Hand Name Role Phone Amor Pate MD Primary Care Provider [phone] [phone] Encounter Details Date Type Department Care Team (Late Contact Info) Description 04/20/2024 4:00 PM EDT [facility] 132 [place] [address] Allison Young, RN [address] [place] [address] Allergies No known active allergiesdocumented as of this encounter (statuses as of 04/20/2024) Medications Medication Sig Dispensed Refills Start Date [...] in the morning. 30 Tablet 07/14/2023 Active Rxmukdq-Mwqflinew-Nn tamin D ER 600-40-500 MG-MG-UNIT Tablet Extended [...] morning. 45 Tablet 3 12/25/2023 Active Nystatin 218322 UNIT/GM External CreamIndications:Can didal intertrigo Apply topically [...] as of this encounter (statuses as of 04/20/2024) Active Problems Problem Noted Date Diagnosed Date [...] multicystic lesion of the pancreas CEA, FLUID 96982.0 ng/mL Final COMMENT Final The reference range [...] patient does not have a Power of Tapper Supervisor or Advanced Directives in place at [...] as of this encounter (statuses as of 04/20/2024) Resolved Problems Problem Noted Date Diagnosed Date [...] as of this encounter (statuses as of 04/20/2024) Immunizations Name Administration Dates Next Due COVID-19 [...] Sign Reading Time Taken Comments Blood Pressure - - Pulse 60 04/20/2024 3:11 PM EDT Temperature 36.3 C (97.3 F) 04/20/2024 3:11 PM ED T Respiratory Rate 18 04/20/2024 3:11 PM EDT Oxygen Saturation 98% 04/20/2024 3:11 PM EDT Inhaled Oxygen Concentration - - Weight [...] Progress Notes * Allison Young RN - 04/20/2024 4:00 PM EDT Current Concerns: Zulma is an 88 year old female seen by [facility] for routine home visit today. She reports feeling well today but has ups and downs. Mobility and strength are limited which is a frustration for her. She would like to be more active but is only able to ambulate a few without stopping to rest. Noted BLE with +1 edema today. Lungs clear, No JVD, no SOB, no chest pain. Pt reports took a PRN lasix this am. Instructed her to take the PRN 20mg dose x 3 days. Follow up call scheduled for 04/23 to check on edema. Pt with hx of UTIs, recently completed antibiotics. Denies any recurrent symptoms. Specimen cup left in home for future use as needed. Ongoing stage 1 on buttocks/sacrum. Using foam dressing. Educated on importance of offloading pressure to allow for healing and prevent further breakdown. Rosa Elena is paying out of pocket for 24 hour caregivers. She is working with [facility] and [employer] functional analyst. She expresses frustration with frequent call offs and uncovered hours. She is ready to decrease the number of hours covered as she feels she and her spouse are managing well during the periods of non-coverage Reviewed safety concerns with her ambulation, she confirms she always seeks assistance. Physical Exam: Physical Exam Constitutional: General: She is not in acute distress. Appearance: Normal appearance. HENT: Mouth/Throat: Mouth: Mucous membranes are moist. Cardiovascular: Rate and Rhythm: Normal rate and regular rhythm. Pulmonary: Effort: Pulmonary effort is normal. Breath sounds: Normal breath sounds. Abdominal: General: Bowel sounds are normal. Palpations: Abdomen is soft. Musculoskeletal: Right lower leg: Edema present. Left lower leg: Edema present. Skin: General: Skin is warm and dry. Capillary Refill: Capillary refill takes 2 to 3 seconds. Neurological: Mental Status: She is alert and oriented to person, place, and time. Motor: Weakness present. Psychiatric: Mood and Affect: Mood normal. Review of Systems: Review of Systems Constitutional: Positive for fatigue. Negative for appetite change and fever. HENT: Negative for congestion. Respiratory: Negative for shortness of breath and wheezing. Cardiovascular: Negative for chest pain, palpitations and leg swelling. Gastrointestinal: Negative for constipation and diarrhea. Genitourinary: Negative for difficulty urinating and dysuria. Musculoskeletal: Positive for gait problem. Skin: Positive for wound (stage 1 on buttocks/sacrum). Neurological: Positive for weakness. Negative for dizziness, light-headedness and headaches. Hematological: Bruises/bleeds easily. Psychiatric/Behavioral: Negative. Care Plan Goal Progress: Patient will maintain optimal mobility & activity level. (Progressing) Start: 04/20/24 Expected End: 08/04/24 Patient will have improved cardiac output. (Progressing) Start: 04/20/24 Expected End: 08/04/24 Patient & caregiver will demonstrate understanding. (Progressing) Start: 04/20/24 Expected End: 08/04/24 Orders Placed: No orders of the defined types were placed in this encounter. Medications Given: Care Gaps: Care Gaps Care gaps closed this contact:: Education;Plan of Care (POC) (04/20/241817) Type of education: Clinical/disease (04/20/241817) Type of plan of care (POC) care gap: Creation of plan of care (POC) and/or Integrated Care Plan (ICP);Education and review of exacerbation plan (04/20/241817) documented in this encounter Miscellaneous Notes * Care Plan - Allison Young RN - 04/20/2024 6:19 PM EDT Pt progressing toward all careplan goals. documented in this encounter Plan of Treatment Upcoming Encounters Date Type Department Care Team (Late st Contact Info) Description 04/22/2024 8:30 AM EDT Laboratory Lab Mobile Phlebotomy [facility] [address] [place] [address] [facility], [facility] Mobile Home Draw [address] [address] 04/23/2024 6:00 AM EDT Anticoagulation Centralized Clinical Pharmacy Services, Derrek Denton [address] [place] [address] [place] [address] [place] [address] 04/23/2024 10:15 AM EDT Scheduled Telephone [facility] 132 [facility] [place] [address] Coordinator, [facility] 132 [facility] [place] [address] 04/29/2024 2:40 PM EDT Office Visit Podiatry, [facility] [address] [place] [address] Sydney Castelan, DPM [address] [place] [address] 05/05/2024 2:00 PM EDT Office Visit Cardiology, [place] 400 [place] [address] Stephanie Ramos PA-C 400 [place] [address] 05/11/2024 12:50 PM EDT [facility] 27 [facility] [address] [place] [address] Marilyn Ozuna PA-C 27 [facility] [place] [address] 05/14/2024 1:20 PM EDT Office Visit Gastroenterology, [facility] 310 [facility] [place] [phone] Cindy Elena, 132 [facility] [place] [address] 05/28/2024 1:00 PM EDT Scheduled Telephone [facility], [facility] [address] [facility] [place] [address] Cyndie Hilton, RDN [address] [facility] [place] [address] 06/01/2024 5:30 PM EDT Home Visit [facility] [place], [facility] [address] [place] [address] Allison Young RN 132 [place] [address] 06/17/2024 11:00 AM EST Telemedicine Hematology/Oncology, [facility] 400 [place] [address] Billy Basurto MD [address] [place] [phone] 07/10/2024 1:40 PM EST Home Visit [facility], [facility] 132 [place] [address] Kayla Thompson CRNP [address] [place] [address] Zohaib Castillo, Community Health Parachute Panel Joiner [address] [place] [address] 08/18/2024 3:30 PM EST Office Visit [facility] [place] [address] [place] [address] Hema Hercules PA-C [address] [place] [address] 08/26/2024 5:40 PM EST Office Visit Family Practice, [place] [address] [place] [phone] Amor Pate MD [address] [place] [address] 09/10/2024 12:50 PM EST Office Visit Dermatology, Francisco Caballero [address] [place] [address] [place] [address] Marilyn Ozuna PA-C [address] [place] [address] 12/31/2024 1:00 PM EDT Cardiac Studies Cardiology, [place] 400 [facility] [place] [address] [place], [facility] 400 [facility] [place] [address] 02/04/2025 12:00 PM EDT Home Visit [facility] at Home [address] [place], [place] [phone] Carol Mathew PA-C [address] [place], [place] [phone] Scheduled Procedures Name Priority Associated Diagnoses Date/Ti [...] Additional history exists CKD PHOS USE SMARTSET 64745 08/22/202408/05, 08/20/2023, 11/07/2022, Additional history exists HbA1c 10/14/2024 04/16/2024, 12/2022, 04/01/2023 Albumin/Creatinine Ratio 12/05/2024 12/06/2023, 03/06 Adult Wellness Visit 02/03/2025 02/04/2024, 02/29/20 23 Depression Screening 02/03/2025 02/04/2024, 12/10/19 24 CKD HGB USE SMARTSET 88104 03/02/202503/02, 03/02/2024, 02/17/2024, Additional history exists DXA Scan 04/22/2025 04/22/2023, 04/05, 12/25/2018, Additional history exists Pneumococcal Vaccine: 65+ Years Completed 02/01/2016, 10/27/2002 VITAMIN D LEVEL ONCE IN A LIFETIME-USE SMARTSET# 12390 Completed 04/16/2024, 09/16/2023, 10/20/2019, Additional history exists [...] this encounter Medical Devices Implanted Type Area Security Operations Analyst Device Identifier Shelf Expiration Date Model / Serial / Lot Implant System, Trim-It Drill Pin [id number](.078" X 4" Implanted:Qty: 1 on 10/10/2017 by Sydney Castelan DPM at OR [facility] Right: Toe 04/04/2019 AR-[id number] / / [id number] Medtronic Attesta Surescan Pacemaker Implanted:Qty: 1 on 06/09/2020 by Chanel Lin DO at OR [facility] Left: Chest 08/01/2021 ATSR01 / [id number] / Nail [id number] Left [id number] - [id number] Implanted:Qty: 1 on 01/20/2021 by Alli Townsend MD at OR [facility] Left: Hip MILAN : TRAUMA 12/03/2023 3525-034 0S / / [id number] Screw Lag 10.5x95mm - [id number] Implanted:Qty: 1 on 01/20/2021 by Alli Townsend MD at OR [facility] Left: Hip MILAN : TRAUMA 11/02/2025 3060-009 5S / / [id number] Screw T2 Alpha Lock 5x47.5mm - [id number] Implanted:Qty: 1 on 01/20/2021 by Alli Townsend MD at OR [facility] Left: Hip MILAN : TRAUMA 05/04/2029 2360-504 7S / / [id number] documented as of this encounter Advance Directives Documents on File Type Date Recorded Patient Insurance Special Agent Expl anation POLST 07/15/2023 [place] OR [facility] FOR LIFE-SUSTAINING TREATMENT [...] First Alternate Health Care Agent Care Teams Burrer Hand Relationship Specialty Start Date End Date Amor Pate MD [address] [place] [address] PCP - General Family Medicine 12/06/22 documented as of this encounter
--- OUTSIDE RECORDS SUMMARY | 2024-08-18 16:22 | External Medical Summary | Summary of Care ---
Author Name Unknown Organization [facility] Address [address] [place] [address] Phone [phone] Care Team Providers Care Legal Job Titles Name Role Phone Amor Pate MD Primary Care Provider [phone] Reason for Visit * Reason Onset Date Comments Advice 04/15/2024 prolia Encounter Details Date Type Department Care Team (Late st Contact Info) Description 04/15/2024 Telephone [facility] [place] [address] [place] [address] Amor Pate MD [address] [place] [address] Advice (prolia) Allergies No known active allergiesdocumented as of this encounter (statuses as of 04/16/2024) Medications Medication Sig Dispensed Refills Start Date [...] in the morning. 30 Tablet 07/14/2023 Active Ntyewbb-Rpyigmxxt-Ez tamin D ER 600-40-500 MG-MG-UNIT Tablet Extended [...] morning. 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 Will need to get a new authorization for Prolia. Once Prolia is approved we can get her set up with [facility] in [place] for visit andProlia injection. * Telephone Encounter - Cathy Mayberry LPN - 04/15/2024 3:03 PM EDT Per TE from 05/08/2023 pt had an infection in a wound on her right foot. Pt was going to call for anappt when the infection is gone. Could not get prolia on 09/14/2022 because financial assistance hasexpired. Last appt was with Jackie on 09/14/2022 Last prolia was 02/09/[address] Arredondo on 04/23/2023 bone desity was stable on prolia so we will continue totreat with prolia. Please advise. New auth will be needed with financial assistance updated Thank you! * Telephone Encounter - Daphne Colón RN - 04/15/2024 2:24 PM EDT I called patient back. She states that the med was ordered by previous Rheumatology MD. She has only had 1 dose of Prolia, wants to restart injections. Routing message to Rheumatology. I advised Zulma that the ordering department would contact her to get Prolia/appt scheduled. * Telephone Encounter - Torin Rahman OSA - 04/15/2024 1:45 PM EDT Patient called and stated that she has an order from 05/24/21 for her to receive a Prolio injection. She stated that she called and she stated that it was oked and that she should call back to schedule it. I am not seeing any order nor a message about this. Can someone check on this and give her a call back at [phone] documented in this encounter Plan of Treatment Upcoming Encounters Date Type Department Care Team (Late st Contact Info) Description 04/20/2024 4:00 PM EDT Home Visit [facility] [place], [facility] [address] [place] [address] Allison Young RN 132 [place] [facility] [place] [address] 04/22/2024 8:30 AM EDT Laboratory Lab Mobile Phlebotomy [facility] 400 [facility] [place] [address] [facility], [facility] Mobile Home Draw 400 [facility] [place] [address] 04/23/2024 6:00 AM EDT Anticoagulation Centralized Clinical Pharmacy Services, Derrek Denton [address] [place] [address] [place] [address] [facility], [address] [place] [address] 04/29/2024 2:40 PM EDT Office Visit Podiatry, [facility] 400 [place] [address] Sydney Castelan, [facility] 400 [place] [address] 05/05/2024 2:00 PM EDT Office Visit Cardiology, [place] [address] [place] [address] Stephanie Ramos PA-C 400 [place] [address] 05/14/2024 1:20 PM EDT Office Visit Gastroenterology, [facility] [address] [place] [phone] Cindy Elena, DO [address] [place] [address] 05/28/2024 1:00 PM EDT Scheduled Telephone [facility] [place], [facility] [address] [place] [address] Cyndie Hilton, RDN [address] [place] [address] 06/17/2024 11:00 AM EST Telemedicine Hematology/Oncology, [facility] 400 [facility] [place] [address] Billy Basurto MD 400 [facility] [place] [address] 07/10/2024 1:40 PM EST Home Visit [facility] 132 [facility] [place] [address] Kayla Thompson CRNP 132 [facility] [place] [address] Zohaib Castillo, Community Health Performance Improvement Manager [address] [place] [address] 08/18/2024 3:30 PM EST Office Visit [facility]olaryngology[facility] [place] [address] [place] [address] Hema Hercules PA-C 27 [place] [address] 08/25/2024 11:00 AM EST Office Visit Dermatology[facility] [place] [address] [place] [address] [place] [address] Marilyn Ozuna PA-C 27 [place] [address] 08/26/2024 5:40 PM EST [facility] [place] [phone] Amor Pate MD 21 [place] [address] 09/10/2024 12:50 PM EST Office Visit Dermatology, [facility] [place] [address] [place] [address] Marilyn Ozuna PA-C [address] [place] [address] 12/31/2024 1:00 PM EDT Cardiac Studies Cardiology, [place] [address] [place] [address] [place] 400 [place] [address] 02/04/2025 12:00 PM EDT Home Visit Care at Home [address] [place] [address] Carol Mathew PA-C [address] [place] [address] Pending Results Name Type Priority Associated Diagnoses Date /Time CALCIUM Lab Routine Age-related osteoporosis without current pathological fracture 04/16/2024 8:27 AM EDT CREATININE Lab Routine Age-related osteoporosis without current pathological fracture 04/16/2024 8:27 AM EDT Scheduled Orders Name Type Priority Associated Diagnoses Orde r Schedule 25-HYDROXY VITAMIN D Lab Routine Age-related osteoporosis without current pathological fracture Expected: 04/16/2024, Expires: 04/16/2025 CALCIUM Lab Routine Age-related osteoporosis without current pathological fracture Expected: 04/16/2024, Expires: 04/16/2025 CREATININE Lab Routine Age-related osteoporosis without current pathological fracture Expected: 04/16/2024, Expires: 04/16/2025 Scheduled Procedures Name Priority Associated Diagnoses Date/Ti me ESOPHAGOGASTRODUODENOSCOPY ( EGD), FLEXIBLE, TRANSORAL, ENDOSCOPIC ULTRASOUND Recall Pancreatic cyst Health Maintenance Due Date Last Done Comments Diabetic Foot Exam 1953 Zoster Vaccines (2 of 3) 12/24/2011 10/29/2011 *BISPHONATE OR OTHER ACCEPTABLE MEDICATION NEEDED FOR OSTEOPOROSIS (REFER TO SMARTSET #1146) 08/15/2022 DTap/Tdap Vaccines (2 - Td or Tdap) 10/03/2022 10/03/2012, 07/04/2005, 08/22/1992 HbA1c 01/08/2024 07/09/2023, 04/01/2023 COVID-19 Vaccine ( season) 2024 10/26/2020, 09/30/2020 Influenza Vaccine (FLU shot) (#1) 2024 04/29/2023, 05/28/2022, 05/18/2021, Additional history exists Diabetic Eye Exam 06/19/2024 06/19/2023, , 01/12/2019, Additional history exists CKD PHOS USE SMARTSET 33856 08/22/202408/05, 08/20/2023, 11/07/2022, Additional history exists Albumin/Creatinine Ratio 12/05/2024 12/06/2023, 03/06 Adult Wellness Visit 02/03/2025 02/04/2024, 02/29/20 23 Depression Screening 02/03/2025 02/04/2024, 12/10/19 24 CKD HGB USE SMARTSET 71209 03/02/202503/02, 03/02/2024, 02/17/2024, Additional history exists DXA Scan 04/22/2025 04/22/2023, 04/05, 12/25/2018, Additional history exists Pneumococcal Vaccine: 65+ Years Completed 02/01/2016, 10/27/2002 VITAMIN D LEVEL ONCE IN A LIFETIME-USE SMARTSET# 76420 Completed 09/16/2023, 10/20/2019, 03/11/2012, Additional history exists HPV (Gardasil) Vaccine Aged Out No lo nger eligible based on patient's age to complete this topic Hepatitis B Vaccine Aged Out No longe r eligible based on patient's age to complete this topic MENINGOCOCCAL (MENACTRA/MENVEO) Aged Out No longer eligible based on patient's age to complete this topic documented as of this encounter Medical Devices Implanted Type Area Tiger Machine Operator Device Identifier Shelf Expiration Date Model / Serial / Lot Implant System, Trim-It Drill Pin [id number](.078" X 4" Implanted:Qty: 1 on 10/10/2017 by Sydney Castelan DPM at OR [facility] Right: Toe 04/04/2019 AR-[id number] / / [id number] Medtronic Attesta Surescan Pacemaker Implanted:Qty: 1 on 06/09/2020 by Chanel Lin DO at OR [facility] Left: Chest 08/01/2021 ATSR01 / [id number] / Nail Gamma3 Left [id number] - [id number] Implanted:Qty: 1 on 01/20/2021 by Alli Townsend MD at OR [facility] Left: Hip MILAN : TRAUMA 12/03/2023 3525-034 0S / / [id number] Screw Lag 10.5x95mm - [id number] Implanted:Qty: 1 on 01/20/2021 by Alli Townsend MD at OR [facility] Left: Hip MILAN : TRAUMA 11/02/2025 3060-009 5S / / [id number] Screw T2 Alpha Lock 5x47.5mm - [id number] Implanted:Qty: 1 on 01/20/2021 by Alli Townsend MD at OR [facility] Left: Hip MILAN : TRAUMA 05/04/2029 2360-504 7S / / [id number] documented as of this encounter Visit Diagnoses Diagnosis Age-related osteoporosis without current pathological fracture- Primary Senile osteoporosis documented in this encounter Advance Directives Documents on File Type Date Recorded Patient Nitrogen Operator Expl anation POLST 07/15/2023 [place] OR [facility] FOR LIFE-SUSTAINING TREATMENT * Full Code (Latest [...] First Alternate Health Care Agent Care Teams Legal Job Titles Relationship Specialty Start Date End Date Amor Pate MD [address] [place] [address] PCP - General Family Medicine 12/06/22 documented as of this encounter
--- OUTSIDE RECORDS SUMMARY | 2024-08-18 16:22 | External Medical Summary ---
Author Name Unknown Address Unknown Organization [id number]:LABORATORY [facility] - [address] [place] [address] Laboratory Report Ordering Provider Test Date Status ALONSOKATARINA 04/16/2024 08:27:21 Final Observation Date Value Abnormality Reference (Units ) Status TSH 04/16/2024 08:27:21 1.96 0.27-4.20 (uIU/mL) Final Performing Location LABORATORY [facility] - [address] [place] [address]
--- OUTSIDE RECORDS SUMMARY | 2024-08-18 16:22 | External Medical Summary ---
Author Name Unknown Address Unknown Organization [id number]:LABORATORY [facility] - [address] [place] [address] Laboratory Report Ordering Provider Test Date Status ANDREW HOOVER 04/22/2024 10:43:26 Final Please draw PT/INR every 1-4 weeks or as requested by the [facility]

Warfarin Therapy
INR: 2.0-3.0 conventional anticoagulation
INR: 2.5-3.5 high intensity anticoagulation Observation Date Value Abnormality Reference (Units ) Status PT 04/22/2024 10:43:26 25.1 Above high normal 11 .6-15.2 (seconds) Final INR 04/22/2024 10:43:26 2.3 Above high normal 0. 8-1.2 Final Performing Location LABORATORY [facility] - [address] [place] [address]
--- OUTSIDE RECORDS SUMMARY | 2024-08-18 16:22 | External Medical Summary ---
Author Name Unknown Address Unknown Organization K01:LABORATORY [facility] - [address] [facility] [address] Laboratory Report Ordering Provider Test Date Status KATARINA GUPTA 04/16/2024 08:27:21 Final Observation Date Value Abnormality Reference (Units ) Status HbA1C 04/16/2024 08:27:21 5.6 4.0-5.6 (% ) Final The use of HbA1c to monitor glycemic status is based on normal hemoglobin and HbA composition. This test should not be used in patients with abnormal hemoglobin that affects the half life of the red blood cell or the in vivo glycation rates. Glucose, estimated average 04/16/2024 08:27:21 114 <126 (mg/dL) Final Performing Location LABORATORY [facility] - [address] [facility] [address]
--- OUTSIDE RECORDS SUMMARY | 2024-08-18 16:22 | External Medical Summary ---
Author Name Unknown Address Unknown Organization K01:LABORATORY [facility] - [address] [place] [address] Laboratory Report Ordering Provider Test Date Status AILEEN CARCAMO 04/16/2024 08:27:21 Final Deficient: <20 ng/mL
Ins ufficient: 20-29 ng/mL
Recommended/Optimum:30-50 ng/mL

Vitamin D intoxication is rare. If suspicious of Vitamin D toxicity, evaluation of serum Calcium and PTH is recommended. Observation Date Value Abnormality Reference (Units ) Status 25-OH Vitamin D total 04/16/2024 08:27:21 74 >19 (ng/mL) Final Performing Location LABORATORY C - [address] [place] [address]
--- OUTSIDE RECORDS SUMMARY | 2024-08-18 16:22 | External Medical Summary ---
Author Name Unknown Address Unknown Organization [id number]:LABORATORY [facility] - [address] [address] Laboratory Report Ordering Provider Test Date Status AILEEN CARCAMO 04/16/2024 08:27:21 Final Observation Date Value Abnormality Reference (Units ) Status Calcium 04/16/2024 08:27:21 9.3 8.4-10.2 ( mg/dL) Final Performing Location LABORATORY [facility] - [address] [address]
--- OUTSIDE RECORDS SUMMARY | 2024-08-18 16:22 | External Medical Summary ---
Author Name Unknown Address Unknown Organization K01:LABORATORY [facility] - [address] [facility] [address] Laboratory Report Ordering Provider Test Date Status KATARINA GUPTA 04/16/2024 08:27:21 Final Observation Date Value Abnormality Reference (Units ) Status Triglyceride 04/16/2024 08:27:21 77 <=174 ( mg/dL) Final Triglyceride Reference Range s (mg/dL):
<150 Acceptable
150-174 Borderline high
175-499 High
>=500 Very high Cholesterol 04/16/2024 08:27:21 139 <200 (mg /dL) Final Total Cholesterol Reference Ranges (mg/dL):
<200 Desirable
200-239 Borderline high
>=240 High HDL 04/16/2024 08:27:21 55 >49 (mg/dL ) Final HDL Cholesterol Reference Ra nges (mg/dL):
>=60 High (Desirable)
<50 Low (Undesirable) For Females
<40 Low (Undesirable) For Males NON-HDL CHOLESTEROL 04/16/2024 08:27:21 84 <=159 (mg/dL) Final Non-HDL Cholesterol Referenc e Range (mg/dL):
<100 Target level for high risk ASCVD patient
<130 Optimal for general population
130-159 Near optimal for general population
160-189 Borderline High
190-219 High
>=220 Very High LDL, (calculated) 04/16/2024 08:27:21 69 <= 129 (mg/dL) Final LDL Cholesterol Reference Ra nges (mg/dL):
<70 Target level for high risk ASCVD patient
<100 Optimal for general population
100-129 Near optimal for general population
130-159 Borderline high
160-189 High
>=190 Very high Performing Location LABORATORY [facility] [place] - [address] [facility] [address]
--- OUTSIDE RECORDS SUMMARY | 2024-08-18 16:22 | External Medical Summary ---
Author Name Unknown Address Unknown Organization K1F:LABORATORY [facility] - [address] [address] Laboratory Report Ordering Provider Test Date Status AILEEN CARCAMO 04/16/2024 08:27:21 Final Observation Date Value Abnormality Reference (Units ) Status Creatinine 04/16/2024 08:27:21 0.9 0.5-1.0 (mg/dL) Final Glomerular filtration rate/1.73 sq M.predicted [Volume Rate/Area] in Serum, Plasma or Blood by Creatinine-based formula (CKD-EPI) 04/16/2024 08:27:21 62 >=60 (mL/min) Final eGFR is calculated based on the CKD-EPI 2020 equation. Performing Location LABORATORY [facility] - [address] [address]
--- OUTSIDE RECORDS SUMMARY | 2024-08-18 16:22 | External Medical Summary | Summary of Care ---
Author Name Unknown Organization [facility] Address [address] [place] [address] Phone [phone] Care Team Providers Care Nurse Leader Name Role Phone Amor Pate MD Primary Care Provider [phone] Reason for Visit * Reason Onset Date Comments Referral 01/17/2024 Encounter Details Date Type Department Care Team (Late st Contact Info) Description 01/17/2024 Telephone Podiatry, [address] [address] Sydney Castelan DPM [address] [place] [address] Referral Allergies No known active allergiesdocumented as of this encounter (statuses as of 04/17/2024) Medications Medication Sig Dispensed Refills Start Date [...] in the morning. 30 Tablet 07/14/2023 Active Fgjpfwt-Tfqevtzej-Ym tamin D ER 600-40-500 MG-MG-UNIT Tablet Extended [...] morning. 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 To affacted area for two weeks. 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 Thank you, RENÉ Lucero , documented in this encounter Plan of Treatment Upcoming Encounters Date Type Department Care Team (Late st Contact Info) Description 04/20/2024 4:00 PM EDT Home Visit [facility] at [facility] [address] [facility] [place] [address] Allison Young RN [address] [facility] [place] [address] 04/22/2024 8:30 AM EDT Laboratory Lab Mobile Phlebotomy [facility] [address] [place] [address] [facility], [facility] Mobile Home Draw [address] [place] [address] 04/23/2024 6:00 AM EDT Anticoagulation [facility], [address] [place] [address] Ccps, [address] [place] [address] 04/29/2024 2:40 PM EDT Office Visit Podiatry, [facility] [address] [place] [address] Sydney Castelan, [facility] 400 [place] [address] 05/05/2024 2:00 PM EDT Office Visit Cardiology, [place] 400 [facility] [place] [address] Stephanie Ramos PA-C 400 [place] [address] 05/14/2024 1:20 PM EDT Office Visit Gastroenterology, [facility] [address] [place] [phone] Cindy Elena, DO [address] [facility] [place] [address] 05/28/2024 1:00 PM EDT Scheduled Telephone [facility], [facility] [address] [facility] [place] [address] Cyndie Hilton, RDN [address] [facility] [place] [address] 06/17/2024 11:00 AM EST Telemedicine Hematology/Oncology, [facility] 400 [place] [address] Billy Basurto MD 400 [place] [phone] 07/10/2024 1:40 PM EST [facility] [address] [place] [address] Kayla Thompson CRNP [address] [place] [address] Zohaib Castillo [facility] Box Truck Washer [address] [place] [address] 08/18/2024 3:30 PM EST Office Visit [place]ology[place] [address] [place] [address] Hema Hercules PA-C [address] [place] [address] 08/25/2024 11:00 AM EST Office Visit Dermatology [place] [address] [place] [address] Marilyn Ozuna PA-C [address] [place] [address] 08/26/2024 5:40 PM EST Office Visit Family [facility], [place] [address] [place] [phone] Amor Pate MD [facility] [place] [address] 09/10/2024 12:50 PM EST Office Visit Dermatology [place] [address] [place] [address] Marilyn Ozuna PA-C [address] [place] [address] 12/31/2024 1:00 PM EDT Cardiac Studies Cardiology, [address] [place] [address] [facility] 400 [facility] [place] [address] 02/04/2025 12:00 PM EDT Home Visit Care at Home [address], [place] [id number] Carol Mathew PA-C [address] [place] [address] Scheduled Procedures Name Priority Associated [...] Additional history exists CKD PHOS USE SMARTSET 97559 08/22/202408/05, 08/20/2023, 11/07/2022, Additional history exists HbA1c 10/14/2024 04/16/2024, 1212/2022, 04/01/2023 Albumin/Creatinine Ratio 12/05/2024 12/06/2023, 03/06 Adult Wellness Visit 02/03/2025 02/04/2024, 02/29/20 23 Depression Screening 02/03/2025 02/04/2024, 12/10/19 24 CKD HGB USE SMARTSET 09231 03/02/202503/02, 03/02/2024, 02/17/2024, Additional history exists DXA Scan 04/22/2025 04/22/2023, 04/05, 12/25/2018, Additional history exists Pneumococcal Vaccine: 65+ Years Completed 02/01/2016, 10/27/2002 VITAMIN D LEVEL ONCE IN A LIFETIME-USE SMARTSET# 65672 Completed 04/16/2024, 09/16/2023, 10/20/2019, Additional history exists [...] this encounter Medical Devices Implanted Type Area Sucker Machine Operator Device Identifier Shelf Expiration Date Model / Serial / Lot Implant System, Trim-It Drill Pin [id number](.078" X 4" Implanted:Qty: 1 on 10/10/2017 by Sydney Castelan DPM at OR [facility] Right: Toe 04/04/2019 AR-[id number] / / [id number] Medtronic Attesta Surescan Pacemaker Implanted:Qty: 1 on 06/09/2020 by Chanel Lin DO at OR [facility] Left: Chest 08/01/2021 ATSR01 / [id number] / Nail [id number] Left [id number] - [id number] Implanted:Qty: 1 on 01/20/2021 by Alli Townsend MD at OR [facility] Left: Hip MILAN : TRAUMA 12/03/2023 3525-034 0S / / [id number] Screw Lag 10.5x95mm - [id number] Implanted:Qty: 1 on 01/20/2021 by Alli Townsend MD at OR [facility] Left: Hip MILAN : TRAUMA 11/02/2025 3060-009 5S / / [id number] Screw T2 Alpha Lock 5x47.5mm - [id number] Implanted:Qty: 1 on 01/20/2021 by Alli Townsend MD at OR [facility] Left: Hip MILAN : TRAUMA 05/04/2029 2360-504 7S / / [id number] documented as of this encounter Advance Directives Documents on File Type Date Recorded 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
--- OUTSIDE RECORDS SUMMARY | 2024-08-18 16:22 | External Medical Summary ---
Author Name UNSPECIFIED Address Unknown Organization [facility] History of Encounters Reason for Assessment: Discharge from [facility] Inpatient Facility where the patient been admitted: No inpatient facility admission Discharge Disposition: Patient remained in the community (without formal assistive services) Functional Assessment Bowel Incontinence Frequency: Very rarel y or never has bowel incontinence Cognitive and Behavioral and Psychiatric Symptoms: None Current Ability: Bathing: able to partic ipate in bathing self in shower or tub, but requires presence of another person throughout the bath for assistance or supervision. Current Ability: Ambulation: Requires us e of a two-handed device (e.g., walker or crutches) to walk alone on a level surface and/or requires human supervision or assistance to negotiate stairs or steps or uneven surfaces. Current: Management Of Oral Medications: Able to take medication(s) at the correct times if given reminders by another person at the appropriate times
--- OUTSIDE RECORDS SUMMARY | 2024-08-18 16:22 | External Medical Summary | Summary of Care ---
Author Name Unknown Organization [facility] Address [address] [place] [address] Phone [phone] Care Team Providers Care Retail Representative Name Role Phone Amor Pate MD Primary Care Provider [phone] Reason for Visit * Reason Onset Date Comments [facility]: Maintenance 04/23/2024 Encounter Details Date Type Department Care Team (Late st Contact Info) Description 04/23/2024 10:15 AM EDT Scheduled Telephone [facility], [facility] 132 [place] [address] Coordinator, [facility] 132 [place] [address] Allergies No known active allergiesdocumented as of [...] in the morning. 30 Tablet 07/14/2023 Active Rtirfbb-Zegibnstn-My tamin D ER 600-40-500 MG-MG-UNIT Tablet Extended [...] morning. 45 Tablet 3 12/25/2023 Active Nystatin 542962 UNIT/GM External CreamIndications:Can didal intertrigo Apply topically [...] multicystic lesion of the pancreas CEA, FLUID 54454.0 ng/mL Final COMMENT Final The reference range [...] patient does not have a Power of Associate Account Director or Advanced Directives in place at [...] Miscellaneous Notes * Telephone Encounter - Marion Marie RN - 04/23/2024 9:22 AM EDT [facility] Telephonic Nurse Follow-Up Call [facility] Subprogram: Focused Care Management (3-9 months) Follow Up Call Type: Routine follow up call / Status Check Acute issue requiring follow-up call: Heart Failure Exacerbation Objective: 04/20/2024 3:11 PM 04/01/2024 3:13 PM 02/12/2024 2:38 PM 02/07/2024 9:51 AM 02/04/2024 4:38 PM VITALS ACROSS ENCOUNTERS BP 104/80 114/62 122/80 Pulse 60 60 61 66 Weight 67.1 kg BMI 23.9 BMI 23.9 kg/m2 Remote Patient Monitoring: NONE Oxygen Needs: NO supplemental oxygen needs identified DME Needs: Walker or other assistive device (specify: rolling walker) Medications: Pt started DTP of: lasix 20 mg daily x 3 days on 04/21 (maintenance dose is 20 mg PRN) Subjective: Condition Status: Improvement in symptoms but not at baseline Current Concerns: Pt started lasix 20 mg prn x 3 days for increase in LE edema noted at 04/20 HV. Per 04/20 RNCM HV note : Noted BLE with +1 edema today. Lungs clear, No JVD, no SOB, no chest pain. Pt reports took a PRN lasix this am. Instructed her to take the PRN 20mg dose x 3 days. Follow up call scheduled for 04/23 to check on edema. Today, 04/23: Spoke with pt, she took 3 days of prn lasix 20 mg, including today; reports her LE edema has decreased some but not completely. Does not note an increase in urination. Denies SOB, cough, new or worsening GARCIA, or abd bloating. Denies increase in sodium content or fluid intake from baseline, reports "I probably don't drink enough fluids". Scheduled for f/u call tomorrow 04/23. Education Provided: Encouraged to elevated legs at rest and continue to monitor for worsening symptoms such as increasein LE edema, abd bloating, or new SOB/cough. Pt verbalized understanding. Disposition: Follow up call scheduled for tomorrow with Grocery Cashier Future Visits Scheduled: Future Appointments-next 60 days Date/Time Provider Specialty Dept Phone 04/23/2024 10:15 AM Coordinator, Bobo Ji [facility] [phone] 04/29/2024 2:40 PM (Arrive by 2:25 PM) Sydney Castealn DPM Podiatry [phone] 05/05/2024 2:00 PM (Arrive by 1:45 PM) Stephanie Ramos PA-C Cardiology [phone] 05/11/2024 12:50 PM (Arrive by 12:35 PM) Marilyn Ozuna PA-C Dermatology [phone] 05/14/2024 1:20 PM (Arrive by 1:05 PM) Cindy Elena DO Gastroenterology [phone] 05/28/2024 1:00 PM Cyndie Hilton RDN [facility] [phone] 06/01/2024 5:30 PM Allison Young RN [facility] [phone] 06/17/2024 11:00 AM Billy Basurto MD Hematology Oncology [phone] 07/10/2024 1:40 PM Zohaib Castillo [facility] Tinner Automatic; Kayla Thompson CRNP [facility] [phone] 08/18/2024 3:30 PM (Arrive by 3:15 PM) Hema Hercules PA-C Otolaryngology [phone] 08/26/2024 5:40 PM (Arrive by 5:25 PM) Amor Pate MD Family Medicine [phone] 09/10/2024 12:50 PM (Arrive by 12:35 PM) Marilyn Ozuna PA-C Dermatology [phone] 12/31/2024 1:00 PM (Arrive by 12:45 PM) [facility] Cardiology [phone] 02/04/2025 12:00 PM Carol Mathew PA-C Family Medicine [phone] Marion Marie RN documented in this encounter Plan of Treatment Upcoming Encounters Date Type Department Care Team (Late st Contact Info) Description 04/24/2024 9:30 AM EDT Scheduled Telephone [facility] [place], [facility] [address] [place] [address] Coordinator, [facility] [address] [place] [address] 04/29/2024 2:40 PM EDT Office Visit Podiatry, [address] [place] [address] Sydney Castelan, DPM 400 [place] [address] 05/05/2024 2:00 PM EDT Office Visit Cardiology, [place] 400 [place] [address] Stephanie Ramos PA-C 400 [place] [address] 05/11/2024 12:50 PM EDT Office Visit Dermatology, [facility] [address] [place] [address] Marilyn Ozuna PA-C [address] [place] [address] 05/14/2024 1:20 PM EDT Office Visit Gastroenterology, [facility] [address] [place] [address] Cindy Elena DO 132 [facility] [place] [address] 05/28/2024 1:00 PM EDT Scheduled Telephone [facility], [facility] [address] [facility] [place] [address] Cyndie Hilton, [place] [address] [facility] [place] [address] 06/01/2024 5:30 PM EDT Home Visit [facility], [facility] 132 [facility] [place] [address] Allison Young RN 132 [facility] [place] [address] 06/17/2024 11:00 AM EST Telemedicine Hematology/Oncology, [facility] 400 [facility] [place] [address] Billy Basurto MD 400 [facility] [place] [phone] 07/10/2024 1:40 PM EST [facility] Visit [facility] [place] [address] Kayla Thompson CRNP [address] [facility] [place] [address] Zohaib Castillo [facility] [employer] 100 [place] [address] 08/18/2024 3:30 PM EST Office Visit OtolaryngologyAdwoa [place] [address] [place] [address] Hema Hercules PA-C [address] [place] [address] 08/26/2024 5:40 PM EST Office Visit [facility] [address] [place] [phone] Amor Pate MD 21 [place] [address] 09/10/2024 12:50 PM EST Office Visit Dermatology, [place] [address] [facility] 140 [place] [address] Marilyn Ozuna PA-C [address] [place] [address] 12/31/2024 1:00 PM EDT Cardiac Studies Cardiology, [place] 400 [facility] [place] [address] [facility] [address] [facility] [place] [address] 02/04/2025 12:00 PM EDT Home Visit Care at Home [address] [place] [address] Carol Mathew PA-C [address] [place] [address] Scheduled Procedures Name Priority Associated [...] Additional history exists CKD PHOS USE SMARTSET 91736 08/22/202408/05, 08/20/2023, 11/07/2022, Additional history exists HbA1c 10/14/2024 04/16/2024, 1212/2022, 04/01/2023 Albumin/Creatinine Ratio 12/05/2024 12/06/2023, 03/06 Adult Wellness Visit 02/03/2025 02/04/2024, 02/29/20 23 Depression Screening 02/03/2025 02/04/2024, 12/10/19 24 CKD HGB USE SMARTSET 90710 03/02/202503/02, 03/02/2024, 02/17/2024, Additional history exists DXA Scan 04/22/2025 04/22/2023, 04/05, 12/25/2018, Additional history exists Pneumococcal Vaccine: 65+ Years Completed 02/01/2016, 10/27/2002 VITAMIN D LEVEL ONCE IN A LIFETIME-USE SMARTSET# 37069 Completed 04/16/2024, 09/16/2023, 10/20/2019, Additional history exists [...] encounter Medical Devices Implanted Type Area Family Services Manager Device Identifier Shelf Expiration Date Model / Serial / Lot Implant System, Trim-It Drill Pin [id number](.078" X 4" Implanted:Qty: 1 on 10/10/2017 by Sydney Castelan DPM at OR [facility] Right: Toe 04/04/2019 AR-[id number] / / [id number] Medtronic Attesta Surescan Pacemaker Implanted:Qty: 1 on 06/09/2020 by Chanel Lin DO at OR [facility] Left: Chest 08/01/2021 ATSR01 / [id number] / Nail [id number] Left [id number] - [id number] Implanted:Qty: 1 on 01/20/2021 by Alli Townsend MD at OR [facility] Left: Hip MILAN : TRAUMA 12/03/2023 3525-034 0S / / [id number] Screw Lag 10.5x95mm - [id number] Implanted:Qty: 1 on 01/20/2021 by Alli Townsend MD at OR [facility] Left: Hip MILAN : TRAUMA 11/02/2025 3060-009 5S / / [id number] Screw T2 Alpha Lock 5x47.5mm - [id number] Implanted:Qty: 1 on 01/20/2021 by Alli Townsend MD at OR [facility] Left: Hip MILAN : TRAUMA 05/04/2029 2360-504 7S / / [id number] documented as of this encounter Advance Directives Documents on File Type Date Recorded 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
--- OUTSIDE RECORDS SUMMARY | 2024-08-18 16:22 | External Medical Summary | Summary of Care ---
Author Name Unknown Organization [facility] Address [address] [place] [address] Phone [phone] Care Team Providers Care Chainstitch Zipper Setter Name Role Phone Amor Pate MD Primary Care Provider [phone] Reason for Visit * Reason Onset Date Comments Advice 04/15/2024 prolia Encounter Details Date Type Department Care Team (Late st Contact Info) Description 04/15/2024 Telephone [facility] [address] [place] [address] Amor Pate MD [address] [place] [address] Advice (prolia) Allergies No known [...] in the morning. 30 Tablet 07/14/2023 Active Xhqzzbd-Fesoesfqp-Qy tamin D ER 600-40-500 MG-MG-UNIT Tablet Extended [...] morning. 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 * Telephone Encounter [...] and give her a call back at [phone] documented in this encounter Plan of Treatment Upcoming Encounters Date Type Department Care Team (Late st Contact Info) Description 04/20/2024 4:00 PM EDT Home Visit [facility] [place], [facility] [address] [place] [address] Allison Young RN [address] [facility] [place] [address] 04/22/2024 8:30 AM EDT Laboratory Lab Mobile Phlebotomy [facility] [address] [facility] [place] [address] [facility], [facility] Home Draw [address] [facility] [place] [address] 04/23/2024 6:00 AM EDT Anticoagulation [facility], Derrek Denton [address] [place] [address] [place] [address] Ccps, [address] [place] [address] 04/29/2024 2:40 PM EDT Office Visit Podiatry, [facility] [address] [facility] [place] [address] Sydney Castelan, [facility] [address] [place] [address] 05/05/2024 2:00 PM EDT Office Visit [facility], [place] [facility] [address] Stephanie Ramos PA-C [address] [facility] [address] 05/11/2024 12:50 PM EDT Office Visit Dermatology, [facility] [place] [address] [place] [address] [place] [address] Marilyn Ozuna PA-C [address] [place] [address] 05/14/2024 1:20 PM EDT Office Visit Gastroenterology, [facility] [address] [facility] [phone] Cindy Elena, DO [address] [place] [address] 05/28/2024 1:00 PM EDT Scheduled Telephone [facility], [facility] [address] [facility] [place] [address] Yobani Cyndie Scarlett, RDN [address] [facility] [place] [address] 06/17/2024 11:00 AM EST Telemedicine Hematology/Oncology, [facility] [address] [place] [address] Billy Basurto MD [address] [place] [phone] 07/10/2024 1:40 PM EST Home Visit [facility], [facility] [address] [place] [address] Kayla Thompson CRNP [address] [place] [address] Zohaib Castillo, Community Health Chief Juvenile Probation Officer [address] [place] [address] 08/18/2024 3:30 PM EST Office Visit [facility]aryngology[facility] [place] [address] [place] [address] Hema Hercules PA-C [address] [place] [address] 08/26/2024 5:40 PM EST Office Visit Family [facility] [place] [address] [place] [phone] Amor Pate MD 21 [facility] [place] [address] 09/10/2024 12:50 PM EST Office Visit Dermatology, [place] [address] [place] [address] Marilyn Ozuna PA-C [address] [place] [address] 12/31/2024 1:00 PM EDT Cardiac Studies Cardiology, [place] [address] [facility] [place] [address] [place] [address] [facility] [place] [address] 02/04/2025 12:00 PM EDT Home Visit [facility] at Home [address], [place] [phone] Carol Mathew PA-C [address] [place], [place] [phone] Scheduled Procedures Name Priority Associated Diagnoses Date/Ti [...] Additional history exists CKD PHOS USE SMARTSET 55643 08/22/202408/05, 08/20/2023, 11/07/2022, Additional history exists HbA1c 10/14/2024 04/16/2024, 1212/2022, 04/01/2023 Albumin/Creatinine Ratio 12/05/2024 12/06/2023, 03/06 Adult Wellness Visit 02/03/2025 02/04/2024, 02/29/20 23 Depression Screening 02/03/2025 02/04/2024, 12/10/19 24 CKD HGB USE SMARTSET 11540 03/02/202503/02, 03/02/2024, 02/17/2024, Additional history exists DXA Scan 04/22/2025 04/22/2023, 04/05, 12/25/2018, Additional history exists Pneumococcal Vaccine: 65+ Years Completed 02/01/2016, 10/27/2002 VITAMIN D LEVEL ONCE IN A LIFETIME-USE SMARTSET# 62253 Completed 04/16/2024, 09/16/2023, 10/20/2019, Additional history exists [...] encounter Medical Devices Implanted Type Area Public Health Worker Device Identifier Shelf Expiration Date Model / Serial / Lot Implant System, Trim-It Drill Pin [id number]" X 4" Implanted:Qty: 1 on 10/10/2017 by Sydney Castelan DPM at OR [facility] Right: Toe 04/04/2019 [id number] / / [id number] Medtronic Attesta Surescan Pacemaker Implanted:Qty: 1 on 06/09/2020 by Chanel Lin DO at OR [facility] Left: Chest 08/01/2021 [id number] / [id number] / Nail [id number] Left [id number] - [id number] Implanted:Qty: 1 on 01/20/2021 by Alli Townsend MD at OR [facility] Left: Hip MILAN : TRAUMA 12/03/2023 [id number] [id number] / / [id number] Screw Lag 10.5x95mm - [id number] Implanted:Qty: 1 on 01/20/2021 by Alli Townsend MD at OR [facility] Left: Hip MILAN : TRAUMA 11/02/2025 [id number] / / [id number] Screw T2 Alpha Lock 5x47.5mm - [id number] Implanted:Qty: 1 on 01/20/2021 by Alli Townsend MD at OR [facility] Left: Hip MILAN : TRAUMA 05/04/2029 [id number] [id number] / / [id number] documented as of this encounter Results * CREATININE (04/16/2024 8:27 AM EDT) Pathologist [facility] CREATININE 0.9 0.5 - 1.0 mg/dL 04/16/2024 12:[address] [facility] EGFR 62 >=60 mL/min 04/16/2024 12:[address] [facility] Comment:eGFR is calculated b ased on the CKD-EPI 2020 equation. Blood Venous blood specimen / Unknown Venipuncture / Unknown 04/16/2024 8:27 AM EDT 04/16/2024 10:10 AM EDT Geronimo Arredondo MD LAB BLOOD ORDERABLE S Performing Organization Address City/[facility]/ZIP Co de Phone Number LABORATORY [address] [address] * CALCIUM (04/16/2024 8:27 AM EDT) Pathologist [facility] CALCIUM 9.3 8.4 - 10.2 mg/dL 04/16/2024 12:[address] [facility] Blood Venous blood specimen / Unknown Venipuncture / Unknown 04/16/2024 8:27 AM EDT 04/16/2024 10:10 AM EDT Geronimo Arredondo MD LAB BLOOD ORDERABLE S LABORATORY [address] [phone] * 25-HYDROXY VITAMIN D (04/16/2024 8:27 AM EDT) 25-Hydroxy Vitamin D 74 >19 ng/mL 04/16/2024 9:56 PM EDT LABORATORY [facility] Blood Venous blood specimen / Unknown Venipuncture / Unknown 04/16/2024 8:27 AM EDT 04/16/2024 10:10 AM EDT Narrative LABORATORY [facility] - 04/16/2024 9:56 PM EDT Deficient: <20 ng/mL Insufficient: 20-29 ng/mL Recommended/Optimum:30-50 ng/mL Vitamin D intoxication is rare. If suspicious of Vitamin D toxicity, evaluation of serum Calcium and PTH is recommended. Geronimo Arredondo MD LAB BLOOD ORDERABLE S LABORATORY [facility] [address] [facility] [address] [place] [address] documented in this encounter Visit Diagnoses Diagnosis Age-related osteoporosis without current pathological fracture- Primary Senile osteoporosis documented in this encounter Advance Directives Documents on File Type Date Recorded Patient Marker Shipments Expl anation POLST 07/15/2023 [place] OR [facility]STAIN[facility]REATMENT * [...] First Alternate Health Care Agent Care Teams Chainstitch Zipper Setter Relationship Specialty Start Date End Date Amor Pate MD [address] [place] [address] PCP - General Family Medicine 12/06/22 documented as of this encounter
--- OUTSIDE RECORDS SUMMARY | 2024-08-18 16:23 | External Medical Summary | Summary of Care ---
Author Name Unknown Organization [facility] Address [address] [place] [address] Phone [phone] Care Team Providers Care Fleet Maintenance Foreman Name Role Phone Amor Pate MD Primary Care Provider [phone] Reason for Visit * Reason Onset Date Comments [facility]: Maintenance 03/30/2024 Encounter Details Date Type Department Care Team (Late st Contact Info) Description 03/30/2024 12:15 PM EDT Scheduled Telephone [facility], [facility] [address] [facility] [place] [address] Coordinator, [facility] [place] [address] Allergies No known active allergiesdocumented as of this encounter (statuses as of 03/30/2024) Medications Medication Sig Dispensed Refills Start Date [...] in the morning. 30 Tablet 07/14/2023 Active Dpemimr-Kzbbhrayf-Od tamin D ER 600-40-500 MG-MG-UNIT Tablet Extended Release 24 HourIndications:Kerry min D deficiency,Osteopeni a one daily (may use otc ) 30 Tablet 07/14/2023 Active Warfarin Sodium 2 MG Oral Tablet (Coumadin) Take 1 Tablet by mouth every evening. As directed by coumadin clinic 90 Tablet 1 08/09/2023 Active Additional Information Patient taking differently:2 mg Oral QPM-1999, As directed by coumadin clinic11/17 - Take 1mg every evening, Reported on 11/18/2023 Sertraline HCl 50 MG Oral Tablet (Zoloft)Indications: [...] mouth daily. 90 Tablet 3 11/19/2023 Active Medihoney Wound &Burn Dressing External Paste Apply to wound bed daily. Cover with Optifoam dressing 103 mL 2 2023 Active MEDICAL INSTRUCTIONSIndicati ons:Pressure injury of skin of buttock, unspecified injury stage, unspecified laterality Apply medihoney daily and allevyn foam to bilateral gluteal pressure injury. 1 Each 1 12/10/2023 Active Metoprolol Succinate ER 25 MG Oral Tablet Extended Release 24 Hour (toPROL XL) Take 0.5 Tablets by mouth in the morning. 45 Tablet 3 12/25/2023 Active Nystatin 364141 UNIT/GM External CreamIndications:Can didal intertrigo Apply topically to affected area 2 times a day. To affacted area for two weeks. 15 g 2 12/31/2023 Active Omeprazole 20 MG Oral Capsule Delayed Release (PriLOSEC)Indication s:GERD (gastroesophageal reflux disease) Take 1 capsule by mouth in the morning 90 Capsule 01/07/2024 Active MEDICAL INSTRUCTIONS Please provide wound care for heel and arm in manner nurse sees fit. Offload heel pressure injury. Make aware if not improving 1 Each 1 01/10/2024 Active Spironolactone 25 MG Oral Tablet (Aldactone)Indicatio ns:Tachy-nikki syndrome (HCC),HTN, goal below 140/90 Take 1 Tablet by mouth once a day on Saturday, Saturday, and Saturday only. 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 therapy 0 08/28/2010 [...] patient does not have a Power of Handy Worker or Advanced Directives in place at [...] as of this encounter (statuses as of 03/30/2024) Resolved Problems Problem Noted Date Diagnosed Date [...] as of this encounter (statuses as of 03/30/2024) Immunizations Name Administration Dates Next Due COVID-19 mRNA, LNP-s, No Pre serve, 2-Dose Series (Pfizer) 10/26/2020,09/30/2020 Pneumococcal Conjugate Vacc, 13 Valent (Prevnar) 02/01/2016 Seasonal Influenza, PF, 6 M & above, IM , (FluLaval or Fluzone) 05/10/2020,05/26/2019,05/19/2018,2016 Seasonal Influenza, Quadriva lent Hd (Fluzone Hd) 04/29/2023,05/28/2022,05/18/2021 Seasonal Influenza, Quadriva lent, No Preserve, IM 05/30/2016,05/30/2015 Seasonal Influenza, Split, I IV3, With Preserve, Inj 04/26/2014,04/23/2013,04/24/2012,2010,04/25/2010,05/24/2009,05/25/2008,1 ,06/22/2006 TDAP (age 10 and older)(Boostrix) [...] the money to buy more. Never true 02/07/20 24 Within the past 12 months, t he food you bought just didn't last and you didn't have money to get more. Never true 02/07/2024 Childcare Answer Date Recorded Do you feel overwhelmed with taking care of a child, family member or friend? No 02/07/2024 Does your family need help f inding childcare? (Household - for ages 0-17 years) Not on file 02/07/2024 Clothing Answer Date Recorded Have you been unable to get clothing when it was really needed? No 02/07/2024 Is your family able to get c lothes or diapers when needed? (Household - for ages 0-17 years) Not on file 02/07/2024 Personal Safety Answer Date Recorded Do you feel unsafe or have concerns for your saf ety? No 02/07/2024 Do you have concerns for you r family's safety? (Household - for ages 0-17 years) Not on file 02/07/2024 Utilities Answer Date Recorded Do you have trouble paying y our heating, water, or electric bill? No 02/07/2024 Is your family able to pay t he heat, water, or electric bill? (Household - for ages 0-17 years) Not on file 02/07/2024 Does your family have access to good internet? (Household - for ages 0-17 years) Not on file 02/07/2024 Employment Status Answer Date Recorded Are you unemployed or without regular income? No 02/07/2024 Does the household have a re gular source of income? (Household - for ages 0-17 years) Not on file 02/07/2024 Social Connections Answer Date Recorded How often do you feel lonely or isolated from th ose around you? Never 02/07/2024 Financial Resource Strain Answer Date R ecorded Do you have any trouble payi ng for your medications, or do you think you might in the future? No 02/07/2024 Does your family have troubl e paying for medicine? (Household - for ages 0-17 years) Not on file 02/07/2024 Transportation Needs Answer Date Record ed READ ONLY Do you have troubl e getting a ride to medical visits or work? Never True 02/07/2024 Does your family have a hard time getting a ride to doctors visits? (Household - for ages 0-17 years) Not on file 02/07/2024 Has lack of transportation k ept you from medical appointments, meetings, work, or from getting things needed for daily living? Check all that apply. No 02/07/2024 Do you (or your family) have trouble finding or paying for a ride (transportation)? (Household - for ages 0-17 years) Not on file 02/07/2024 Housing Stability Answer Date Recorded Do you currently live in a s helter or have no steady place to sleep at night? No 02/07/2024 READ ONLY Do you think you a re at risk of becoming homeless? No 02/07/2024 Does your family worry about paying for your home or becoming homeless? (Household - for ages 0-17 years) Not on file 0 02/07/2024 Are you homeless or worried that you might be in the future? No 02/07/2024 Are you (or your family) jun eless or worried that you might be in the future? (Household - for ages 0-17 years) Not on file Food Insecurity Answer Date Recorded Do you need food for this week? No 02/07/2024 Are you able to get enough f ood for your family? (Household - for ages 0-17 years) Not on file 02/07/2024 Does your family need food t his week? (Household - for ages 0-17 years) Not on file 02/07/2024 Do you always have enough fo od for your family? (Household - for ages 0-17 years) Not on file 02/07/2024 Sex and Gender Information Value Date Recorded [...] Telephone Encounter - Kamla Calzada RN - 03/30/2024 8:32 AM EDT Images from the original note were not included. [facility] Telephonic Nurse Follow-Up Call [facility] Subprogram: Focused Care Management (3-9 months) Follow Up Call Type: 48 hour follow up Acute issue requiring follow-up call: Other: Urinary symptom of burning, weakness Objective: 02/12/2024 2:38 PM 02/07/2024 9:51 AM 02/04/2024 4:38 PM 01/22/2024 4:17 PM 01/03/2024 9:20 PM VITALS ACROSS ENCOUNTERS BP 114/62 122/80 110/60 130/67 Pulse 61 66 60 66 Weight 67.1 kg BMI 23.9 BMI 23.9 kg/m2 Remote Patient Monitoring: NONE Oxygen Needs: NO supplemental oxygen needs identified DME Needs: NO DME needs identified Medications: No medication or dose adjustments made during acute episode Subjective: Condition Status: Improvement in symptoms but not at baseline Current Concerns: Called patient, made aware her urine test is negative. Advised to stay hydrated, take all medications as ordered Call [facility] if any new or worsening symptoms, pt agreed Disposition: Issue resolved. All appropriate follow up scheduled. Future Visits Scheduled: Future Appointments-next 60 days Date/Time Provider Specialty Dept Phone 03/30/2024 12:15 PM Coordinator, Bobo Ji [facility] [phone] 04/01/2024 3:00 PM Carol Blevins, [facility] Sales Manager; Kayla Thompson CRNP [facility] [phone] 04/08/2024 8:10 AM [facility], [facility] Draw Laboratory Processing [phone] 04/09/2024 6:00 AM [facility] [phone] 04/10/2024 11:30 AM Cyndie Hilton RDN [facility] [phone] 04/20/2024 4:00 PM Allison Young RN [facility] [phone] 04/29/2024 2:40 PM (Arrive by 2:25 PM) Sydney Castelan DPM Podiatry [phone] 05/05/2024 2:00 PM (Arrive by 1:45 PM) Stephanie Ramos PA-C Cardiology [phone] 05/14/2024 1:20 PM (Arrive by 1:05 PM) Cindy Elena DO Gastroenterology [phone] 06/17/2024 11:00 AM Billy Basurto MD Hematology Oncology [phone] 08/18/2024 3:40 PM (Arrive by 3:25 PM) Hema Hercules PA-C Otolaryngology [phone] 08/26/2024 5:40 PM (Arrive by 5:25 PM) Amor Pate MD Family Medicine [phone] 09/10/2024 12:50 PM (Arrive by 12:35 PM) Marilyn Ozuna PA-C Dermatology [phone] 12/31/2024 1:00 PM (Arrive by 12:45 PM) [facility] [phone] 02/04/2025 12:00 PM Carol Mathew PA-C Family Medicine [phone] Kamla Calzada, RN documented in this encounter Plan of Treatment Upcoming Encounters Date Type Department Care Team (Late st Contact Info) Description 04/01/2024 3:00 PM EDT Telemedicine [facility], [facility] [address] [place] [address] Kayla Thompson CRNP [address] [place] [address] Carol Blevins, [facility] Regional Sales Manager [address] [place] [address] 04/08/2024 8:10 AM EDT Laboratory Lab Mobile Phlebotomy [facility] [address] [place] [address] [facility], [facility] Draw [address] [place] [address] 04/09/2024 6:00 AM EDT Anticoagulation [facility], Derrek Denton [address] [place] [address] [place] [address] Ccps, [address] [place] [address] 04/10/2024 11:30 AM EDT Scheduled Telephone [facility], [facility] [address] [facility] [place] [address] Cyndie Hilton, RDN [address] [facility] [place] [address] 04/20/2024 4:00 PM EDT Home Visit [facility] [address] [facility] [place] [address] Allison Young RN [address] [facility] [place] [address] 04/29/2024 2:40 PM EDT Office Visit Podiatry, [address] [address] Sydney Castelan DPM [address] [place] [address] 05/05/2024 2:00 PM EDT Office Visit Cardiology, [address] [address] Stephanie Ramos PA-C [address] [place] [address] 05/14/2024 1:20 PM EDT Office Visit Gastroenterology, [facility] [address] [place] [address] Cindy Elena DO [address] [facility] [place] [address] 06/17/2024 11:00 AM EST Telemedicine Hematology/Oncology, [address] [address] Billy Basurto MD [address] [place] [address] 08/18/2024 3:40 PM EST Office Visit Otolaryngology, [place] [address] [place] [address] Hema Hercules PA-C [address] [place] [address] 08/26/2024 5:40 PM EST Office Visit Family [facility], [place] [address] [place] [phone] Amor Pate MD [address] [place] [address] 09/10/2024 12:50 PM EST Office Visit Dermatology, [address] [place] [address] Marilyn Ozuna PA-C [address] [place] [address] 12/31/2024 1:00 PM EDT Cardiac Studies Cardiology, [place] [address] [place] [address] Francisco Pacer [facility] 400 [facility] [address] 02/04/2025 12:00 PM EDT [facility] Visit [facility] [address] [place] [facility] [place] [address] Carol Mathew PA-C [address] [facility] [place] [address] Scheduled Procedures Name Priority Associated Diagnoses Date/Ti me ESOPHAGOGASTRODUODENOSCOPY ( EGD), FLEXIBLE, TRANSORAL, ENDOSCOPIC ULTRASOUND Recall Pancreatic cyst Health Maintenance Due Date Last Done Comments Diabetic Foot Exam 1953 Zoster Vaccines (2 of 3) 12/24/2011 10/29/2011 *BISPHONATE OR OTHER ACCEPTABLE MEDICATION NEEDED FOR OSTEOPOROSIS (REFER TO SMARTSET #1146) 08/15/2022 DTaP,Tdap,and Td Vaccines (2 - Td or Tdap) 10/03/2022 10/03/2012, 07/04/2005, 08/22/1992 COVID-19 Vaccine (3 - 2022- season) 2023 10/26/2020, 09/30/2020 HbA1c 01/08/2024 07/09/2023, 04/01/2023 Influenza Vaccine (FLU shot) (#1) 2024 04/29/2023, 05/28/2022, 05/18/2021, Additional history exists Diabetic Eye Exam 06/19/2024 06/19/2023, , 01/12/2019, Additional history exists CKD PHOS USE SMARTSET 50815 08/22/202408/05, 08/20/2023, 11/07/2022, Additional history exists Albumin/Creatinine Ratio 12/05/2024 12/06/2023, 03/06 Adult Wellness Visit 02/03/2025 02/04/2024, 02/29/20 23 Depression Screening 02/03/2025 02/04/2024, 12/10/19 24 CKD HGB USE SMARTSET 35563 03/02/202503/02, 03/02/2024, 02/17/2024, Additional history exists DXA Scan 04/22/2025 04/22/2023, 04/05, 12/25/2018, Additional history exists Pneumococcal Vaccine: 65+ Years Completed 02/01/2016, 10/27/2002 VITAMIN D LEVEL ONCE IN A LIFETIME-USE SMARTSET# 31961 Completed 09/16/2023, 10/20/2019, 03/11/2012, Additional history exists [...] this encounter Medical Devices Implanted Type Area Release Of Information Specialist Device Identifier Shelf Expiration Date Model / Serial / Lot Implant System, Trim-It Drill Pin [id number]" X 4" Implanted:Qty: 1 on 10/10/2017 by Sydney Castelan DPM at OR [facility] Right: Toe 04/04/2019 [id number] / / [id number] Medtronic Attesta Surescan Pacemaker Implanted:Qty: 1 on 06/09/2020 by Chanel Lin DO at OR [facility] Left: Chest 08/01/2021 ATSR01 / [id number] / Nail [id number] Left [id number] - [id number] Implanted:Qty: 1 on 01/20/2021 by Alli Townsend MD at OR [facility] Left: Hip MILAN : TRAUMA 12/03/2023 [id number] [id number] / / [id number] Screw Lag 10.5x95mm - [id number] Implanted:Qty: 1 on 01/20/2021 by Alli Townsend MD at OR [facility] Left: Hip MILAN : TRAUMA 11/02/2025 [id number] / / [id number] Screw T2 Alpha Lock 5x47.5mm - [id number] Implanted:Qty: 1 on 01/20/2021 by Alli Townsend MD at OR [facility] Left: Hip MILAN : TRAUMA 05/04/2029 [id number] / / [id number] documented as of this encounter Advance Directives Documents on File Type Date Recorded Patient Radiochemical Technician Expl anation POLST 07/15/2023 [place] [facility] FOR LIFE-SUSTAINING TREATMENT * Full Code [...] First Alternate Health Care Agent Care Teams Fleet Maintenance Foreman Relationship Specialty Start Date End Date Amor Pate MD [address] [place] [address] PCP - General Family Medicine 12/06/22 documented as of this encounter
--- OUTSIDE RECORDS SUMMARY | 2024-08-18 16:23 | External Medical Summary | Summary of Care ---
Author Name Unknown Organization [facility] Address [address] [place] [address] Phone [phone] Care Team Providers Care Sport Intern Name Role Phone Amor Pate MD Primary Care Provider [phone] Reason for Visit * Reason Onset Date Comments Medical Nutrition Therapy 04/10/2024 Encounter Details Date Type Department Care Team (Latest Contact Info) Description 04/10/2024 11:30 AM EDT Scheduled Telephone [facility], [facility] [address], [place] [id number] Cyndie Hilton, RDN [address] [place] [address] Pressure injury of buttock, stage 3 (HCC)* Allergies No known active allergiesdocumented as of this encounter (statuses as of 04/10/2024) Medications Medication Sig Dispensed Refills Start Date [...] in the morning. 30 Tablet 07/14/2023 Active Ltsnhib-Bhptiibjx-Hc tamin D ER 600-40-500 MG-MG-UNIT Tablet Extended [...] morning. 45 Tablet 3 12/25/2023 Active Nystatin 559631 UNIT/GM External CreamIndications:Can didal intertrigo Apply topically [...] [facility] 90 Tablet 1 04/10/2024 Active documented as of this encounter (statuses as of 04/10/2024) Active Problems Problem Noted Date Diagnosed Date [...] multicystic lesion of the pancreas CEA, FLUID 57078.0 ng/mL Final COMMENT Final The reference range [...] 06/18/2013 Last Assessment & Plan: S/p pacemaker [facility] current use of anticoagulant [...] patient does not have a Power of Community Health Director or Advanced Directives in place at [...] as of this encounter (statuses as of 04/10/2024) Resolved Problems Problem Noted Date Diagnosed Date [...] anemia 03/05/2005 02/04/2024 Overview: Hemoglobin Results: HGB(g/dL) Dr Dt/Tm Resulted Value Status 06/29/19 2:26P 06/29/19 [...] as of this encounter (statuses as of 04/10/2024) Immunizations Name Administration Dates Next Due COVID-19 [...] encounter Miscellaneous Notes * Telephone Encounter - Yobani Cyndiemarcos Pantoja, TEMON - 04/10/2024 1:38 PM EDT NUTRITION PROGRESS NOTE - [facility] TELEPHONIC [employer] Patient Phone Numbers: [phone] Home Call placed to pt as follow-up from initial nutrition assessment 02/20/2024. Called for nutrition follow up this date. Reason for nutrition follow up Clinical nutrition risk related to skin breakdown:Pressure injury of buttock, stage 3 (HCC) per 02/20/2024 nutrition assessment patient reporting "cleared up", but "raw again" Patient reporting another area on her skin - hip area. Previously noted in EHR. Reporting that buttocks area "now bleeding" Patient reporting heel is "healed up". Continues to take MVI. Has been drinking 1 bottle of premier protein (30g per bottle per day) Continues with three meals per day. Reportgood appetite, although suspect smaller portions. No updated weight to report on. Patient thinks she may have gained some with back. Wt Readings from Last 3 Encounters: 02/12/24 67.1 kg (148 lb) 12/10/23 68.1 kg (150 lb 3.2 oz) 11/18/23 68 kg (150 lb) Hemoglobin AIC Results: Lab Results Component Value Date/Time HEMOGLOBIN A1C - [facility] 5.5 07/09/2023 04:30 AM HEMOGLOBIN A1C - [facility] 6.2 (H) 04/01/2023 05:01 PM Previous Nutrition Goals: Oral nutrition supplement 2 x daily (Boost [...] oz per day. Continue to encourage fluid itnake. Reinforced nutrition goals. Encouraged continued progress towards goals Follow up as scheduled. Encouraged pt to contact [facility] at [phone] for any non-emergent changes/concerns. LEDA Wiggins, RDN, LDN Clinical Dietitian [facility] documented in this encounter Plan of Treatment Upcoming Encounters Date Type Department Care Team (Late st Contact Info) Description 04/15/2024 8:00 AM EDT Laboratory Lab [facility] Phlebotomy [facility] [address] [address] [facility], l Mobile Home Draw [address] [address] 04/20/2024 4:00 PM EDT Home Visit [facility] [place], [facility] [address] [place] [address] Allison Young RN [address] [facility] [place] [address] 04/22/2024 8:30 AM EDT Laboratory Lab Mobile Phlebotomy [facility] [address] [facility] [place] [address] Gl, l Mobile Home Draw [address] [facility] [place] [address] 04/23/2024 6:00 AM EDT Anticoagulation [facility], Derrek Denton [address] [place] [address] [place] [address] [facility], [address] [place] [address] 04/29/2024 2:40 PM EDT Office Visit Podiatry, [facility] [address] [place] [address] Sydney Castelan, [facility] [address] [place] [address] 05/05/2024 2:00 PM EDT Office Visit Cardiology, [place] [address] [place] [address] Stephanie Ramos PA-C [address] [place] [address] 05/14/2024 1:20 PM EDT Office Visit Gastroenterology, [facility] [address] [place] [address] Cindy Elena, DO [address] [place] [address] 05/28/2024 1:00 PM EDT Scheduled Telephone [facility] at [place], [facility] [address] [facility] [place] [address] Cyndie Hilton, [place] [address] [place] [address] 06/17/2024 11:00 AM EST Telemedicine Hematology/Oncology, [facility] [address] [facility] [place] [address] Billy Basurto MD [address] [place] [address] 07/10/2024 1:40 PM EST Home Visit [facility] at [facility] [address] [facility] [place] [address] Kayla Thompson CRNP [address] [facility] [place] [address] Zohaib Castillo, Community Health Manager Of Case [address] [place] [address] 08/18/2024 3:30 PM EST Office Visit Otolaryngology, [place] Pol[place] [address] [address] Hema Hercules PA-C [address] [address] 08/25/2024 11:00 AM EST Office Visit Dermatology, [place] Caballero [address] [place] [address] Marilyn Ozuna PA-C [address] [address] 08/26/2024 5:40 PM EST Office Visit Family [facility], [place] [address] [phone] Amor Pate MD [address] [address] 09/10/2024 12:50 PM EST Office Visit Dermatology, [place] [address] [place] [address] Marilyn Ozuna PA-C [address] [address] 12/31/2024 1:00 PM EDT Cardiac Studies Cardiology, [place] [address] [facility] [place] [address] [place], [facility] [address] [facility] [place] [address] 02/04/2025 12:00 PM EDT Home Visit [facility] at Home [address], [place] [phone] Carol Mathew PA-C [address] [place], [place] [phone] Scheduled Procedures Name Priority Associated Diagnoses Date/Ti [...] 08/22/1992 HbA1c 01/08/2024 07/09/2023, 04/01/2023 COVID-19 Vaccine (3 - 2022- season) 2024 10/26/2020, 09/30/2020 Influenza Vaccine (FLU shot) (#1) 2024 04/29/2023, 05/28/2022, 05/18/2021, Additional history exists Diabetic Eye Exam 06/19/2024 06/19/2023, , 01/12/2019, Additional history exists CKD PHOS USE SMARTSET 90488 08/22/202408/05, 08/20/2023, 11/07/2022, Additional history exists Albumin/Creatinine Ratio 12/05/2024 12/06/2023, 03/06 Adult Wellness Visit 02/03/2025 02/04/2024, 02/29/20 23 Depression Screening 02/03/2025 02/04/2024, 12/10/19 24 CKD HGB USE SMARTSET 67838 03/02/202503/02, 03/02/2024, 02/17/2024, Additional history exists DXA Scan 04/22/2025 04/22/2023, 04/05, 12/25/2018, Additional history exists Pneumococcal Vaccine: 65+ Years Completed 02/01/2016, 10/27/2002 VITAMIN D LEVEL ONCE IN A LIFETIME-USE SMARTSET# [id number] Completed 09/16/2023, 10/20/2019, 03/11/2012, Additional history exists [...] this encounter Medical Devices Implanted Type Area Distribution A Class Lineman Device Identifier Shelf Expiration Date Model / Serial / Lot Implant System, Trim-It Drill Pin [id number]" X 4" Implanted:Qty: 1 on 10/10/2017 by Sydney Castelan DPM at OR [facility] Right: Toe 04/04/2019 [id number] / / [id number] Medtronic Attesta Surescan Pacemaker Implanted:Qty: 1 on 06/09/2020 by Chanel Lin DO at OR [facility] Left: Chest 08/01/2021 ATSR01 / [id number] / Nail Gamma3 Left [id number] - [id number] Implanted:Qty: 1 on 01/20/2021 by Alli Townsend MD at OR [facility] Left: Hip MILAN : TRAUMA 12/03/2023 3525-034 [id number] / / [id number] Screw Lag 10.5x95mm - [id number] Implanted:Qty: 1 on 01/20/2021 by Alli Townsend MD at OR [facility] Left: Hip MILAN : TRAUMA 11/02/2025 [id number] / / [id number] Screw T2 Alpha Lock 5x47.5mm - [id number] Implanted:Qty: 1 on 01/20/2021 by Alli Townsend MD at OR [facility] Left: Hip MILAN : TRAUMA 05/04/2029 [id number] [id number] / / [id number] documented as of this encounter Visit Diagnoses Diagnosis Pressure injury of buttock, stage 3 (HCC)- Primary documented in this encounter Advance Directives Documents on File Type Date Recorded Patient Nursing Officer Expl anation POLST 07/15/[address] [place] [address] [facility] FOR LIFE-SUSTAINING TREATMENT * [...] First Alternate Health Care Agent Care Teams Sport Intern Relationship Specialty Start Date End Date Amor Pate MD [address] [phone] PCP - General Family Medicine 12/06/22 documented as of this encounter
--- OUTSIDE RECORDS SUMMARY | 2024-08-18 16:23 | External Medical Summary | Summary of Care ---
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 Contact [facility] Client Services at to find out service days for a specific location. Medical Laboratory [address] [place] [id number] Seng Go M.D. Director and Injection Molding Machine Tender Patient Name: Zulma Villar : 1935 Sex: female Address [address] [place] [id number] Provider: @REF@? Amor Pate MD? Diagnosis: No diagnosis found. 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 30 Capsule 3 Active Additional Information Patient taking differently:1 Capsule [...] use otc ) 30 Tablet 3 Active Warfarin Sodium 2 MG Oral Tablet (Coumadin) Take 1 Tablet by mouth every evening. As directed by coumadin clinic 90 Tablet 1 4 Active Additional Information Patient taking differently:2 mg Oral QPM-1999, As directed by coumadin clinic11/17 - Take 1mg every evening, Reported on 11/18/2023 Sertraline HCl 50 MG Oral Tablet (Zoloft)Indicatio ns:Anxiety about health Take 1 Tablet by mouth in the morning. 30 Tablet 5 4 Active Folic Acid 0.8 MG Oral Capsule Take 1 Tablet by mouth in the morning. Active rOPINIRole HCl 0.25 MG Oral Tablet (Requip)Indicatio ns:Tremors of nervous system Take 1 Tablet by mouth in the morning and 1 Tablet in the evening. 180 Tablet 1 4 Active Atorvastatin Calcium 20 MG Oral Tablet (Lipitor)Indicati ons:Atheroscleros is of aorta (HCC) Take 1 Tablet by mouth daily. 90 Tablet 3 4 Active Metoprolol Succinate ER 25 MG Oral Tablet Extended Release 24 Hour (toPROL XL) Take 0.5 Tablets by mouth in the morning. 45 Tablet 3 4 Active Nystatin 148785 UNIT/GM External CreamIndications: Candidal intertrigo Apply topically [...] Saturday only. 40 Tablet 3 4 Active Medihoney Wound &Burn Dressing External Paste Apply to wound bed daily. Cover with Optifoam dressing 103 mL 2 4 04/01/20 24 Discontinued(Ia dication List Clean Up) MEDICAL INSTRUCTIONSIndic ations:Pressure injury of skin of buttock, unspecified injury stage, unspecified laterality Apply medihoney daily and allevyn foam to bilateral gluteal pressure injury. 1 Each 1 4 04/01/20 24 Discontinued(Ia dication List Clean Up) MEDICAL INSTRUCTIONS Please provide wound care for heel and arm in manner nurse sees fit. Offload heel pressure injury. Make aware if not improving 1 Each 1 4 04/01/20 24 Discontinued documented as of this encounter (statuses as of 04/01/2024) Active Problems Problem Noted Date Diagnosed Date [...] dot 03/04/2023 DDD (degenerative disc disease), lumbar 07/31/20 23 Atherosclerosis of aorta 03/04/2023 Internal hemorrhoids [...] multicystic lesion of the pancreas CEA, FLUID 36505.0 ng/mL Final COMMENT Final The reference range [...] patient does not have a Power of Allergy Nurse or Advanced Directives in place at this [...] as of this encounter (statuses as of 04/01/2024) Resolved Problems Problem Noted Date Diagnosed Date [...] as of this encounter (statuses as of 04/01/2024) Immunizations Name Administration Dates Next Due COVID-19 [...] No 04/01/2024 Does the household have a [facility] source of income? (Household - for [...] Sign Reading Time Taken Comments Blood Pressure 104/80 04/01/2024 3:13 PM EDT Pulse 60 04/01/2024 3:13 PM EDT Temperature 36.6 C (97.9 F) 04/01/2024 3:13 PM ED T Respiratory Rate 16 04/01/2024 3:13 PM EDT Oxygen Saturation 96% 04/01/2024 3:13 PM EDT Inhaled Oxygen Concentration - - [...] as of this encounter Progress Notes * Carol Blevins, Community Health Meal Attendant - 04/01/2024 3:04 PM EDT Images from the original note were not included. Telemedicine visit: Yes Patient location: HOME. I was not in a hospital or clinic location. After connecting through televideo, patient was verified with two unique identifiers. Patient (or authorized legal sales representative sales manager) was then informed that this was a Telemedicine visit and being conducted confidentially over secure lines. Methods to assure confidentiality were taken. Patient acknowledged consent and understanding of privacy and security of the Telemedicine visit. The patient agreed to participate. Community Health Meal Attendant (KARI) documentation: CHW visit To help conduct video visit BP 104/80 (BP Site: Left Arm, BP Position: Sitting, BP Cuff Size: Pediatric) | Pulse 60 | Temp 36.6C (97.9 F) (Infrared ) | Resp 16 | SpO2 96% Pain in left knee receives injections in knee Pictures obtained with patients permission Kayla Thompson addressed all concerns Carol Blevins [facility] Community Health Worker Call or Text- [phone] * Kayla Thompson CRNP - 04/01/2024 3:00 PM EDT Images from the original note were not included. [facility] Problem Oriented Charting Provider Visit Date: 04/01/2024 Time: 3:28 PPM [facility] Sub-Program: No data was found Assessment and Plan #1 Type 2 diabetes mellitus with hemoglobin A1c goal of less than 7.0% ([facility]) (Primary) Assessment & Plan: "RED FLAG" Diabetic symptoms: Generalized Weakness Goal HgbA1c <8 Diabetic Complications Vascular (examples: PVD, PAD, CAD, CVA) Renal (example: CKD, Proteinuria, Dialysis) Medication Regimen Lifestyle Modification / Monitoring ONLY DM Secondary Prevention Moderate-High Intensity Statin Additional Comments Last hemoglobin A1c from July was 5.5. She is due for lab recheck-ordered via mobile Orders: - Hemoglobin A1C; Future; Expected date: 04/01/2024 - Home Phlebotomy Referral OP #2 Hypertensive heart and kidney disease with chronic diastolic congestive heart failure and stage 3a chronic kidney disease ([facility]) Assessment & Plan: "RED FLAG" HF Symptoms: [...] not recommend daily wt at this time Orders: - TSH with Free T4 if indicated; Future; Expected date: 04/01/2024 - Home Phlebotomy Referral OP #3 Dyslipidemia, goal LDL below 70 Overview: LDL (CALCULATED)(mg/dL) Rd Dt/Tm Resulted Value Status 03/07/13 9:10A 03/07/13 152* satisfactory no evid of sign atherosclerosis LDL (CALCULATED)(mg/dL) Rd Dt/Tm Resulted Value Status 09/14/10 9:35A 09/14/10 128 FINAL Lipid Panel Results: LDL (CALCULATED) (mg/dL) 12/07/03 9:45A 12/07/03 131* Final Orders: - Lipid Panel with Direct LDL if TG is High; Future; Expected date: 04/01/2024 - Home Phlebotomy Referral OP #4 DM peripheral angiopathy (HCC) #5 Chronic atrial fibrillation, unspecified (HCC) Assessment & Plan: Rate controlled Continue coumadin per [facility] Additional Medical Decision Making: Stable today. Advised importance of repositioning and offloading pressure to prevent further open areas/pressure injury to buttocks. She has a small scab on the left thigh area and advised to monitor, consider topical antibiotic cream until healed. Physical therapy was in and just discharged her within the last few weeks. She plans to keep all of her scheduled appointments. RN to continue to monitor. Check-out note: Scheduling-please schedule telemedicine recheck in July This dictation was verbally transcribed via Dictation system. Occasional Errors, spelling flaws andomissions are inherent in digital transcriptions. Please contact the undersigned for any clarification/correction in the dictated transcript as needed. Scheduled appointments in the next 60 days: Future Appointments-next 60 days Date/Time Provider Specialty Dept Phone 04/01/2024 3:00 PM Carol Blevins, Community Health Meal Attendant; Kayla Thompson CRNP [facility] [phone] 04/08/2024 8:10 AM [facility] Mobile Home Draw Laboratory Processing [phone] 04/09/2024 6:00 AM [facility] [phone] 04/10/2024 11:30 AM Cyndie Hilton RDN [facility] [phone] 04/20/2024 4:00 PM Allison Young RN [facility] [phone] 04/29/2024 2:40 PM (Arrive by 2:25 PM) Sydney Castelan DPM Podiatry [phone] 05/05/2024 2:00 PM (Arrive by 1:45 PM) Stephanie Ramos PA-C Cardiology [phone] 05/14/2024 1:20 PM (Arrive by 1:05 PM) Cindy Elena DO Gastroenterology [phone] 06/17/2024 11:00 AM Billy Basurto MD Hematology Oncology [phone] 08/18/2024 3:40 PM (Arrive by 3:25 PM) Hema Hercules PA-C Otolaryngology [phone] 08/26/2024 5:40 PM (Arrive by 5:25 PM) Amor Pate MD Family Medicine [phone] 09/10/2024 12:50 PM (Arrive by 12:35 PM) Marilyn Ozuna PA-C Dermatology [phone] 12/31/2024 1:00 PM (Arrive by 12:45 PM) [facility] [phone] 02/04/2025 12:00 PM Carol Mathew PA-C Family Medicine [phone] A total of 24 minutes was spent face to face (via video-based telemedicine if designated as a telemedicine visit) Subjective Subjective Is this a Telemedicine Visit? Yes, Patient location: HOME. I was not in a hospital or clinic location. After connecting through televideo, patient was verified with two unique identifiers. Patient (or authorized legal sales representative sales manager) was then informed that this was a Telemedicine visit and being conducted confidentially over secure lines. Methods to assure confidentiality were taken. Patient acknowledged consent and understanding of privacy and security of the Telemedicine visit. The patient agreed to participate. Reason For [facility] Visit: Follow-Up Current Concerns: Zulma Villar is a 88 year old female seen today for a [facility]. PMH--dm 2, chronic diastolic CHF, CKD 3A, GERD, chronic atrial fib, TBS status post pacemaker Today's concerns are: Reports legs feel weak today, not walking much today. Urine cx neg from 03/28.No fevers or chills. No SOB or CP. Denies any recent falls. Additional Review of Systems Constitutional: Positive for activity change. Negative for appetite change, chills and fever. Protein drink 1/2 in am and 1/2 pm Respiratory: Negative for shortness of breath. Cardiovascular: Positive for leg swelling (chronic). Negative for chest pain. Gastrointestinal: Negative for constipation and diarrhea. Genitourinary: Negative for dysuria. Musculoskeletal: Positive for gait problem. Objective Objective Vitals: 04/01/24 1513 Temp: 36.6 C (97.9 F) Pulse: 60 Resp: 16 SpO2: 96% BP: 104/80 Last Weights: Wt Readings from Last 3 Encounters: 02/12/24 67.1 kg (148 lb) 12/10/23 68.1 kg (150 lb 3.2 oz) 11/18/23 68 kg (150 lb) Last BPs: BP Readings from Last 4 Encounters: 04/01/24 104/80 02/07/24 114/62 02/04/24 122/80 01/22/24 110/60 Physical Exam Constitutional: General: She is not in acute distress. Appearance: She is not toxic-appearing. Comments: elderly Cardiovascular: Rate and Rhythm: Normal rate and regular rhythm. Heart sounds: No murmur heard. Pulmonary: Effort: Pulmonary effort is normal. No respiratory distress. Breath sounds: Normal breath sounds. Musculoskeletal: Right lower leg: No edema. Left lower leg: No edema. Skin: Coloration: Skin is not pale. Neurological: General: No focal deficit present. Mental Status: She is alert. Psychiatric: Mood and Affect: Mood normal. Behavior: Behavior normal. Lab Review: I have reviewed the following results: BMP results Recent Labs Units 03/02/24 0950 02/17/24 1149 01/03/24 1632 SODIUM - [facility] mmol/L 145 146 140 POTASSIUM - [facility] mmol/L 4.2 4.0 5.0 CHLORIDE - [facility] mmol/L 107 106 104 CO2 - [facility] mmol/L CREATININE - [facility] mg/dL 0.8 0.9 1.0 BUN - [facility] mg/dL 18 31* 25* Lipid panel results Recent Labs Units 11/07/22 0501 08/15/22 0841 CHOLESTEROL - [facility] mg/dL 97 125 HDL CHOLESTEROL - [facility] mg/dL 48* 68 TRIGLYCERIDES - [facility] mg/dL 69 40 CBC results Recent Labs Units 03/02/24 0948 02/17/24 1149 01/03/24 1632 WBC K/uL 4.75 4.89 5.55 HGB g/dL 10.7* 11.0* 10.8* HCT % 34.7* 35.3* 34.6* PLT K/uL 125* 144 167 HbA1c results Recent Labs Units 07/09/23 0430 04/01/23 1701 HEMOGLOBIN A1C - [facility] % 5.5 6.2* TSH results Recent Labs Units 01/21/23 0830 TSH - [facility] uIU/mL 0.78 Vitamin D results Recent Labs Units 09/16/23 0605 25-HYDROXY VITAMIN D - [facility] ng/mL 52 Hepatic panel results Recent Labs Units 03/02/24 0950 01/03/24 1632 11/11/23 0601 PROTEIN - [facility] g/dL 5.7* 6.8 5.8* BILIRUBIN, TOTAL - [facility] mg/dL 0.4 0.2 0.3 ALKALINE PHOSPHATASE - [facility] U/L 79 100 103 AST - [facility] U/L 20 26 25 ALT - [facility] U/L 12 19 17 Protein/cr ratio results No results for input(s): "PROCRRATIO" in the last 95210 hours. Medication Review "Bottles Out" medication review not performed today MAGDALENA Mendoza 1:57 PM *Communication sent to PCP (via [employer] if non-[facility]), [facility] Health Care Team members,relevant Specialty Care Physicians* documented in this encounter Miscellaneous Notes * Assessment & Plan Note - Kayla Thompson CRNP - 04/01/2024 4:50 PM EDT Associated Problem(s): Chronic atrial fibrillation, unspecified (HCC) Rate controlled Continue coumadin per MTM * Assessment & Plan Note - Kayla Thompson CRNP - 04/01/2024 4:49 PM EDT Associated Problem(s): 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) "RED FLAG" HF Symptoms: Leg Swelling (Examples: [...] not recommend daily wt at this time * Assessment & Plan Note - Kayla Thompson CRNP - 04/01/2024 4:48 PM EDT Associated Problem(s): Type 2 diabetes mellitus with hemoglobin A1c goal of less than 7.0% (HCC) "RED FLAG" Diabetic symptoms: Generalized Weakness Goal HgbA1c <8 Diabetic Complications Vascular (examples: PVD, PAD, CAD, CVA) Renal (example: CKD, Proteinuria, Dialysis) Medication Regimen Lifestyle Modification / Monitoring ONLY DM Secondary Prevention Moderate-High Intensity Statin Additional Comments Last hemoglobin A1c from July was 5.5. She is due for lab recheck-ordered via mobile documented in this encounter Plan of Treatment Upcoming Encounters Date Type Department Care Team (Late st Contact Info) Description 04/08/2024 8:10 AM EDT Laboratory Lab Mobile Phlebotomy [facility] [address] [address] [facility] Mobile Home Draw [address] [address] 04/09/2024 6:00 AM EDT Anticoagulation Centralized Clinical Pharmacy Services, Derrek Denton [address] [place] [address] [place] [address] [place] [address] 04/10/2024 11:30 AM EDT Scheduled Telephone [facility], [facility] [address] [facility] [place] [address] MignonlizetteCyndie boyer, RDN [address] [place] [address] 04/20/2024 4:00 PM EDT Home Visit [facility], [facility] [address] [facility] [place] [address] Allison Young RN [address] [facility] [place] [address] 04/29/2024 2:40 PM EDT Office Visit [address]iatry, [address] [address] Sydney Castelan DPM [facility] [address] 05/05/2024 2:00 PM EDT Office Visit Cardiology, [place] [address] [facility] [place] [address] Stephanie Ramos PA-C [address] [place] [address] 05/14/2024 1:20 PM EDT Office Visit Gastroenterology, [facility] [address] [facility] [phone] Cindy Elena DO [address] [facility] [place] [address] 06/17/2024 11:00 AM EST Telemedicine Hematology/Oncology, [address] [address] Billy Basurto MD [address] [facility] [place] [phone] 08/18/2024 3:40 PM EST Office Visit Otolaryngology, [address] [place] [address] Hema Hercules PA-C [address] [place] [address] 08/26/2024 5:40 PM EST Office Visit Family [facility], [place] [address] [phone] Amor Pate MD [address] [address] 09/10/2024 12:50 PM EST Office Visit Dermatology, [place] [address] [address] Marilyn Ozuna PA-C [address] [address] [address] 12/31/2024 1:00 PM EDT Cardiac Studies Cardiology, [place] [address] [facility] [place] [address] [place], [facility] [address] [facility] [place] [address] 02/04/2025 12:00 PM EDT Home Visit [facility] [address] [facility] [place] [id number] Carol Mathew PA-C [address] [facility] [place] [phone] Scheduled Orders Name Type Priority Associated Diagnoses Orde r Schedule HEMOGLOBIN A1C Lab Routine Type 2 diabetes mellitus with hemoglobin A1c goal of less than 7.0% (HCC) Expected: 04/01/2024 (Approximate), Expires: 04/01/2025 TSH WITH FREE T4 IF INDICATED Lab Routine 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) Expected: 04/01/2024 (Approximate), Expires: 04/01/2025 LIPID PANEL WITH DIRECT LDL IF TG IS HIGH Lab Routine Dyslipidemia, goal LDL below 70 Expected: 04/01/2024, Expires: 04/01/2025 Scheduled Procedures Name Priority Associated Diagnoses Date/Ti me ESOPHAGOGASTRODUODENOSCOPY ( EGD), FLEXIBLE, TRANSORAL, ENDOSCOPIC ULTRASOUND Recall Pancreatic cyst Scheduled Referrals Name Type Priority Associated Diagnoses Orde r Schedule HOME PHLEBOTOMY REFERRAL OP Referral Within 10 days (routine) Type 2 diabetes mellitus with hemoglobin A1c goal of less than 7.0% (HCC) 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) Dyslipidemia, goal LDL below 70 Ordered: 04/01/2024 Health Maintenance Due Date Last Done Comments [...] Additional history exists CKD PHOS USE SMARTSET 24477 08/22/202408/05, 08/20/2023, 11/07/2022, Additional history exists Albumin/Creatinine Ratio 12/05/2024 12/06/2023, 03/06 Adult Wellness Visit 02/03/2025 02/04/2024, 02/29/20 23 Depression Screening 02/03/2025 02/04/2024, 12/10/19 24 CKD HGB USE SMARTSET 84140 03/02/202503/02, 03/02/2024, 02/17/2024, Additional history exists DXA Scan 04/22/2025 04/22/2023, 04/05, 12/25/2018, Additional history exists Pneumococcal Vaccine: 65+ Years Completed 02/01/2016, 10/27/2002 VITAMIN D LEVEL ONCE IN A LIFETIME-USE SMARTSET# 94822 Completed 09/16/2023, 10/20/2019, 03/11/2012, Additional history exists [...] this encounter Medical Devices Implanted Type Area Accounts Administrator Device Identifier Shelf Expiration Date Model / Serial / Lot Implant System, Trim-It Drill Pin [id number]" X 4" Implanted:Qty: 1 on 10/10/2017 by Sydney Castelan DPM at OR [facility] Right: Toe 04/04/2019 [id number] / / [id number] Medtronic Attesta Surescan Pacemaker Implanted:Qty: 1 on 06/09/2020 by Chanel Lin DO at OR [facility] Left: Chest 08/01/2021 [id number] / [id number] / Nail [id number] Left [id number] - [id number] Implanted:Qty: 1 on 01/20/2021 by Alli Townsend MD at OR [facility] Left: Hip MILAN : TRAUMA 12/03/2023 3525-034 [id number] / / [id number] Screw Lag 10.5x95mm - [id number] Implanted:Qty: 1 on 01/20/2021 by Alli Townsend MD at OR [facility] Left: Hip MILAN : TRAUMA 11/02/2025 3060-009 [id number] / / [id number] Screw T2 Alpha Lock 5x47.5mm - [id number] Implanted:Qty: 1 on 01/20/2021 by Alli Townsend MD at OR [facility] Left: Hip MILAN : TRAUMA 05/04/2029 [id number] [id number] / / [id number] documented as of this encounter Visit Diagnoses Diagnosis Type 2 [...] as uncontrolled Chronic atrial fibrillation, unspecified (HCC) documented in this encounter Advance Directives Documents on File Type Date Recorded Patient Account Manager Expl anation POLST 07/15/2023 [place] [facility] FOR LIFE-SUSTAINING TREATMENT * Full Code [...] First Alternate Health Care Agent Care Teams Filling Machine Set Up Mechanic Relationship Specialty Start Date End Date Amor Pate MD [address] [address] PCP - General Family Medicine 12/06/22 documented as of this encounter
--- OUTSIDE RECORDS SUMMARY | 2024-08-18 16:23 | External Medical Summary | Summary of Care ---
Author Name Unknown Organization [facility] Address [address] [place] [address] Phone [phone] Care Team Providers Care Ash Conveyor Operator Name Role Phone Amor Pate MD Primary Care Provider [phone] [phone] Reason for Visit * Reason Onset Date Comments [facility]: Maintenance 03/30/2024 Encounter Details Date Type Department Care Team (Late st Contact Info) Description 03/30/2024 Telephone [facility], [facility] [place] [address] Letty Downing, RN 132 [facility] [place] [address] [facility]: Maintenance Allergies No known [...] in the morning. 30 Tablet 07/14/2023 Active Cizhjrw-Ikgsffvsv-Mx tamin D ER 600-40-500 MG-MG-UNIT Tablet Extended [...] morning. 45 Tablet 3 12/25/2023 Active Nystatin 844475 UNIT/GM External CreamIndications:Can didal intertrigo Apply topically [...] multicystic lesion of the pancreas CEA, FLUID 97974.0 ng/mL Final COMMENT Final The reference range [...] 06/18/2013 Last Assessment & Plan: S/p pacemaker long term care pharmacist current use of anticoagulant therapy 0 08/28/2010 [...] patient does not have a Power of Trim Machine Operator or Advanced Directives in place at [...] money to buy more. Never true 02/07/20 Within the past 12 months, t he [...] encounter Miscellaneous Notes * Telephone Encounter - Letty Downing RN - 03/30/2024 4:52 PM EDT Pt requested RN check on getting more foam dressings and gloves when picking up urine 03/28/24 . [facility] had spoke with someone that made a visit last week about refills and has not heard back. Spoke with Corinne at [facility] today. Confirmed pt is still admitted to SN and OT services. Corinne [place] [facility] care [facility] States they will send supplies when she is due for them usually around the first of the month. Unless there is a change in the wound, she is unable to get supplies earlier. Corinne will message and confirm with [facility] supplies are being sent. Sridevi/Dagmar documented in this encounter Plan of Treatment Upcoming Encounters Date Type Department Care Team (Late st Contact Info) Description 04/01/2024 3:00 PM EDT Telemedicine [facility], [address] [place] [address] Kayla Thompson CRNP 132 [facility] [place] [address] Carol Blevins, Community Health Field Recorder [address] [place] [address] 04/08/2024 8:10 AM EDT Laboratory Lab Mobile Phlebotomy GL [address] [place] [address] Gl, [facility] Mobile Home Draw 400 [place] [address] 04/09/2024 6:00 AM EDT Anticoagulation Centralized Clinical Pharmacy Services, [address] [place] [address] [facility], [address] [place] [address] 04/10/2024 11:30 AM EDT Scheduled Telephone [facility], [facility] [address] [place] [address] Cyndie Hilton, TEMON [address] [place] [address] 04/20/2024 4:00 PM EDT Home Visit [facility], [facility] 132 [facility] [place] [address] Allison Young RN 132 [facility] [place] [address] 04/29/2024 2:40 PM EDT Office Visit Podiatry, [address] [address] Sydney Castelan, MARIO 400 [facility] [address] 05/05/2024 2:00 PM EDT Office Visit Cardiology, [address] [address] Stephanie Ramos PA-C 400 [facility] [address] 05/14/2024 1:20 PM EDT Office Visit Gastroenterology, [facility] [address] [facility] [phone] Cindy Elena, DO [address] [place] [address] 06/17/2024 11:00 AM EST Telemedicine Hematology/Oncology, [address] [address] Billy Basurto MD 400 [facility] [phone] 08/18/2024 3:40 PM EST Office Visit Otolaryngology, [address]wo[address] Loz[address] [place] 27 [place] [address] Hema Hercules PA-C 27 [place] [address] 08/26/2024 5:40 PM EST Office Visit Family [facility], [place] 21 [facility] [place] [phone] Amor Pate MD [address] [place] [address] 09/10/2024 12:50 PM EST Office Visit Dermatology, [address]wo[address] Green [place] 27 [address] 140 [place] [address] Marilyn Ozuna PA-C [address] [place] [address] 12/31/2024 1:00 PM EDT Cardiac Studies Cardiology, [place] 400 [facility] [place] [address] [place] 400 [facility] [address] 02/04/2025 12:00 PM EDT Home Visit Care at Home [address] [place] [address] Carol Mathew PA-C [address] [place] [address] Scheduled Procedures Name Priority Associated Diagnoses Date/Ti [...] Additional history exists CKD PHOS USE SMARTSET 98454 08/22/202408/05, 08/20/2023, 11/07/2022, Additional history exists Albumin/Creatinine Ratio 12/05/2024 12/06/2023, 03/06 Adult Wellness Visit 02/03/2025 02/04/2024, 02/29/20 23 Depression Screening 02/03/2025 02/04/2024, 12/10/19 24 CKD HGB USE SMARTSET 39846 03/02/202503/02, 03/02/2024, 02/17/2024, Additional history exists DXA Scan 04/22/2025 04/22/2023, 04/05, 12/25/2018, Additional history exists Pneumococcal Vaccine: 65+ Years Completed 02/01/2016, 10/27/2002 VITAMIN D LEVEL ONCE IN A LIFETIME-USE SMARTSET# 84192 Completed 09/16/2023, 10/20/2019, 03/11/2012, Additional history exists [...] this encounter Medical Devices Implanted Type Area Odd Ticket Clerk Device Identifier Shelf Expiration Date Model / Serial / Lot Implant System, Trim-It Drill Pin [id number]" X 4" Implanted:Qty: 1 on 10/10/2017 by Sydney Castelan DPM at OR [facility] Right: Toe 04/04/2019 AR-4152DS / / [id number] Medtronic Attesta Surescan Pacemaker Implanted:Qty: 1 on 06/09/2020 by Chanel Lin DO at OR [facility] Left: Chest 08/01/2021 ATSR01 / [id number] / Nail Gamma3 Left [id number] - [id number] Implanted:Qty: 1 on 01/20/2021 by Alli Townsend MD at OR [facility] Left: Hip MILAN : TRAUMA 12/03/2023 3525-034 0S / / [id number] Screw Lag 10.5x95mm - [id number] Implanted:Qty: 1 on 01/20/2021 by Alli Townsend MD at OR [facility] Left: Hip MILAN : TRAUMA 11/02/2025 3060-009 5S / / [id number] Screw T2 Alpha Lock 5x47.5mm - [id number] Implanted:Qty: 1 on 01/20/2021 by Alli Townsend MD at OR [facility] Left: Hip MILAN : TRAUMA 05/04/2029 2360-504 7S / / [id number] documented as of this encounter Advance Directives Documents on File Type Date Recorded Patient Escrow Officer Expl anation POLST 07/15/2023 [place] [facility] FOR [facility]-SUSTAINING TREATMENT [...] First Alternate Health Care Agent Care Teams Ash Conveyor Operator Relationship Specialty Start Date End Date Amor Pate MD 21 [place] [id number] PCP - General Family Medicine 12/06/22 documented as of this encounter
--- OUTSIDE RECORDS SUMMARY | 2024-08-18 16:23 | External Medical Summary ---
Author Name Unknown Address Unknown Organization K1F:LABORATORY [facility] - Betty S[place] [address] Laboratory Report Ordering Provider Test Date Status ANDREW HOOVER 04/08/2024 09:30:00 Final Please draw PT/INR every 1-4 weeks or as requested by the [facility] Coumadin Clinic

Warfarin Therapy
INR: 2.0-3.0 conventional anticoagulation
INR: 2.5-3.5 high intensity anticoagulation Observation Date Value Abnormality Reference (Units ) Status PT 04/08/2024 09:30:00 22.7 Above high normal 11 .6-15.2 (seconds) Final INR 04/08/2024 09:30:00 2.0 Above high normal 0. 8-1.2 Final Performing Location LABORATORY GL - [address] [place] [address]
--- OUTSIDE RECORDS SUMMARY | 2024-08-18 16:23 | External Medical Summary | Summary of Care ---
Author Name Unknown Organization [facility] Address [address] [place] [address] Phone [phone] Care Team Providers Care Mri Special Procedures Technologist Name Role Phone Carlos Alberto Murrieta MD Primary Care Provider [phone] Reason for Visit * Reason Comments eRx-Medication Refill Encounter Details Date Type Department Care Team (Late st Contact Info) Description 04/08/2024 Refill [facility] [address] [place] [address] Carlos Alberto Murrieta MD [address] [place] [address] Allergies No known active allergiesdocumented as of [...] morning. 45 Tablet 3 4 Active Nystatin 274346 UNIT/GM External CreamIndications:C andidal intertrigo Apply topically [...] COUMADIN CLINIC 90 Tablet 1 4 Active Warfarin Sodium 2 MG Oral Tablet (Coumadin) Take 1 Tablet by mouth every evening. As directed by coumadin clinic 90 Tablet 1 4 04/10/20 24 Discontinued documented as of this encounter [...] multicystic lesion of the pancreas CEA, FLUID 57624.0 ng/mL Final COMMENT Final The reference range [...] 06/18/2013 Last Assessment & Plan: S/p pacemaker assistant terminal manager current use of anticoagulant therapy 0 [...] patient does not have a Power of Feltmaker And Weigher or Advanced Directives in place at this [...] encounter Miscellaneous Notes * Telephone Encounter - Christ Miranda RPh - 04/10/2024 11:14 AM EDTSigned Prescriptions: Disp Refills Warfarin Sodium 2 MG Oral Tablet (Coumadin)90 Tab*1 Sig: TAKE 1 TO 2 TABLETS BY MOUTH IN THE EVENING DIRECTED BY COUMADIN CLINICAuthorizing Provider: CARLOS ALBERTO MURRIETA User: CHRIST MIRANDA documented in this encounter Plan of Treatment Upcoming Encounters Date Type Department Care Team (Late st Contact Info) Description 04/10/2024 11:30 AM EDT Scheduled Telephone [facility], [facility] [address] [facility] [place] [address] Cyndie Hilton, RDN 1000 [address] [facility] [place] [address] 04/15/2024 8:00 AM EDT Laboratory Lab Mobile Phlebotomy [facility] 400 [facility] [place] [address] [facility] Mobile Home Draw 400 [facility] [place] [address] 04/20/2024 4:00 PM EDT [facility] Visit [facility] [place], [facility] 132 [facility] [place] [address] Allison Young RN 132 [place] [address] 04/22/2024 8:30 AM EDT Laboratory Lab Mobile Phlebotomy [facility] 400 [facility] [place] [address] [facility], [facility] Mobile Home Draw 400 [facility] [place] [address] 04/23/2024 6:00 AM EDT Anticoagulation Centralized Clinical Pharmacy Services, Derrek Denton [address] [place] [address] [place] [address] Ccps, [address] [place] [address] 04/29/2024 2:40 PM EDT Office Visit Podiatry, [facility] 400 [facility] [place] [address] Sydney Castelan, [facility] 400 [facility] [address] 05/05/2024 2:00 PM EDT Office Visit Cardiology, [place] 400 [facility] [place] [address] Stephanie Ramos PA-C 400 [facility] [place] [address] 05/14/2024 1:20 PM EDT Office Visit Gastroenterology, [address], [place] [address] [place] [address] Cindy Elena DO 132 [facility] [address] 06/17/2024 11:00 AM EST Telemedicine Hematology/Oncology, [facility] 400 [facility] [place] [address] Billy Basurto MD 400 [place] [address] 07/10/2024 1:40 PM EST Home Visit [facility] 132 [place] [address] Kayla Thompson CRNP 132 [place] [address] Zohaib Castillo Community Health Fisheries Technician [address] [place] [address] 08/18/2024 3:30 PM EST Office Visit Otolaryngology, [place] 27 [place] [address] Hema Hercules PA-C [address] [place] [address] 08/25/2024 11:00 AM EST Office Visit Dermatology, [address] [place] [address] 140 [place] [address] Marilyn Ozuna PA-C [address] [place] [address] 08/26/2024 5:40 PM EST Office Visit Family [facility], [place] 21 [place] [phone] Carlos Alberto Murrieta MD 21 [place] [address] 09/10/2024 12:50 PM EST Office Visit Dermatology, [address] [place] 27 [address] 140 [place] [address] Marilyn Ozuna PA-C [address] [place] [address] 12/31/2024 1:00 PM EDT Cardiac Studies Cardiology, [place] 400 [facility] [place] [address] [place] [facility] 400 [facility] [place] [address] 02/04/2025 12:00 PM EDT Home Visit Care at Home [address] [place] [address] Carol Mathew PA-C [address] [place] [address] Scheduled Procedures Name Priority Associated Diagnoses Date/Ti [...] Additional history exists CKD PHOS USE SMARTSET 62609 08/22/202408/05, 08/20/2023, 11/07/2022, Additional history exists Albumin/Creatinine Ratio 12/05/2024 12/06/2023, 03/06 Adult Wellness Visit 02/03/2025 02/04/2024, 02/29/20 23 Depression Screening 02/03/2025 02/04/2024, 12/10/19 24 CKD HGB USE SMARTSET 51291 03/02/202503/02, 03/02/2024, 02/17/2024, Additional history exists DXA Scan 04/22/2025 04/22/2023, 04/05, 12/25/2018, Additional history exists Pneumococcal Vaccine: 65+ Years Completed 02/01/2016, 10/27/2002 VITAMIN D LEVEL ONCE IN A LIFETIME-USE SMARTSET# 85300 Completed 09/16/2023, 10/20/2019, 03/11/2012, Additional history exists [...] this encounter Medical Devices Implanted Type Area Gis Database Administrator Device Identifier Shelf Expiration Date Model / Serial / Lot Implant System, Trim-It Drill Pin [id number](.078" X 4" Implanted:Qty: 1 on 10/10/2017 by Sydney Castelan DPM at OR [facility] Right: Toe 04/04/2019 AR-4152DS / / [id number] Medtronic Attesta Surescan Pacemaker Implanted:Qty: 1 on 06/09/2020 by Chanel Lin DO at OR [facility] Left: Chest 08/01/2021 ATSR01 / [id number] / Nail Gamma3 Left [id number] - [id number] Implanted:Qty: 1 on 01/20/2021 by Alli Townsend MD at OR [facility] Left: Hip MILAN : TRAUMA 12/03/2023 3525-034 0S / / [id number] Screw Lag 10.5x95mm - [id number] Implanted:Qty: 1 on 01/20/2021 by Alli Townsend MD at OR [facility] Left: Hip MILAN : TRAUMA 11/02/2025 3060-009 5S / / [id number] Screw T2 Alpha Lock 5x47.5mm - [id number] Implanted:Qty: 1 on 01/20/2021 by Alli Townsend MD at OR [facility] Left: Hip MILAN : TRAUMA 05/04/2029 2360-504 7S / / [id number] documented as of this encounter Advance Directives Documents on File Type Date Recorded Patient Dimethylaniline Sulfator Operator Expl anation POLST 07/15/2023 [place] OR [facility] FOR LIFE-SUSTAINING [...] First Alternate Health Care Agent Care Teams Mri Special Procedures Technologist Relationship Specialty Start Date End Date Carlos Alberto Murrieta MD 21 [place] [address] PCP - General Family Medicine 12/06/22 documented as of this encounter
--- OUTSIDE RECORDS SUMMARY | 2024-08-18 16:23 | External Medical Summary | Summary of Care ---
Author Name Unknown Organization [facility] Address [address] [place] [address] Phone [phone] Care Team Providers Care Integrated Marketing Manager Name Role Phone Amor Pate MD Primary Care Provider [phone] Reason for Visit * Reason Comments Dosage Adjustment Via Phone (anticoag Cl inic) Encounter Details Date Type Department Care Team (Late st Contact Info) Description 04/09/2024 6:00 AM EDT Anticoagulation Centralized Clinical Pharmacy Services, Derrek Denton [address] [place] [address] [place] [address] [place] [address] [facility] current use of anticoagulant therapy* Allergies No known active allergiesdocumented as of this encounter (statuses as of 04/09/2024) Medications Medication Sig Dispensed Refills Start Date [...] in the morning. 30 Tablet 07/14/2023 Active Iepntzc-Vznhpnuue-Iw tamin D ER 600-40-500 MG-MG-UNIT Tablet Extended [...] morning. 45 Tablet 3 12/25/2023 Active Nystatin 746428 UNIT/GM External CreamIndications:Can didal intertrigo Apply topically [...] as of this encounter (statuses as of 04/09/2024) Active Problems Problem Noted Date Diagnosed Date [...] multicystic lesion of the pancreas CEA, FLUID 46285.0 ng/mL Final COMMENT Final The reference range [...] patient does not have a Power of Chief Client Officer or Advanced Directives in place at this [...] as of this encounter (statuses as of 04/09/2024) Resolved Problems Problem Noted Date Diagnosed Date [...] as of this encounter (statuses as of 04/09/2024) Immunizations Name Administration Dates Next Due COVID-19 [...] of this encounter Progress Notes * Marilyn Kulkarni PHARM Tech - 04/09/2024 9:28 AM EDT Contacts Contact Date/Time Type Contact Phone/Fax 04/09/2024 09:27 AM EDT Phone (Outgoing) Zulma Villar (Self) [phone] (H) Left Message Subjective Advised patient to contact Anticoagulation Clinic if any unusual bruising or bleeding, recent illness, changes in medication, or questions/concerns. PT/INR results, Coumadin dose instructions, and next PT/INR date communicated as noted by Pharmacist: Yes JAH Dao 04/09/2024, 9:28 AM * Kadie Byers RPh - 04/09/2024 8:42 AM EDT Coumadin Clinic (region specific) Objective Current Warfarin Dose As of 04/09/2024 Warfarin maintenance plan: 4 mg (2 mg x 2) every Fri; 2 mg (2 mg x 1) all other days INR Result As of 04/09/2024 INR goal: 2.0-3.0 INR used for dosin.0 (04/08/2024) Assessment & Plan Warfarin Plan As of 04/09/2024 Full warfarin instructions: 4 mg every Fri; 2 mg all other days No change documented: Kadie Byers RPh Next INR check: 04/22/2024 Repeat PT/INR in 2 week(s) Weekly dose: not changed Additional Dosing Information: Description [facility] Lorraine Singh fax [phone] Boost- 1/day Tech to contact patient with dose instructions as noted. Kadie Byers RPh 04/09/2024, 8:42 AM documented in this encounter Plan of Treatment Upcoming Encounters Date Type Department Care Team (Late st Contact Info) Description 04/10/2024 11:30 AM EDT Scheduled Telephone [facility], [facility] [address] [facility] [place] [address] Cyndie Hilton RDN [address] [facility] [place] [address] 04/15/2024 8:00 AM EDT Laboratory Lab Mobile Ph[facility] [address] [place] [place] [address] [facility] Mobile Home Draw [address] [place] [address] 04/20/2024 4:00 PM EDT [facility] Visit [facility], [address] [place] [address] Allison Young, RN 132 [facility] [place] [address] 04/23/2024 6:00 AM EDT Anticoagulation Centralized Clinical Pharmacy Services, [facility] [address] [place] [address] [place] [address] Ccps, [address] [place] [address] 04/29/2024 2:40 PM EDT Office Visit Podiatry, [address] [address] Sydney Castelan, [facility] 400 [place] [address] 05/05/2024 2:00 PM EDT Office Visit Cardiology, [address] [address] Stephanie Ramos PA-C 400 [place] [address] 05/14/2024 1:20 PM EDT Office Visit Gastroenterology, [facility] [address] [place] [address] Cindy Elena DO 132 [facility] [place] [address] 06/17/2024 11:00 AM EST Telemedicine Hematology/Oncology, [address] [address] Billy Basurto MD 400 [place] [address] 07/10/2024 1:40 PM EST [facility] Visit [facility], [facility] [address] [place] [address] Kayla Thompson CRNP [address] [place] [address] Zohaib Castillo Community Health Forging Operator [address] [place] [address] 08/18/2024 3:30 PM EST Office Visit Otolaryngology, [place] [address] [place] [address] Hema Hercules PA-C 27 [place] [address] 08/26/2024 5:40 PM EST Office Visit Family Practice, [place] [address] [place] [phone] Amor Pate MD [facility] [place] [address] 09/10/2024 12:50 PM EST Office Visit Dermatology, [place] [address] 140 [place] [address] Marilyn Ozuna PA-C 27 [address] She[place] cheng [address] 12/31/2024 1:00 PM EDT Cardiac Studies Cardiology, [place] 400 [facility] [place] [address] Lucita Singh [facility] 400 [facility] [address] 02/04/2025 12:00 PM EDT Home Visit Care at Home [address] [place] [address] Carol Mahtew PA-C [address] [place] [address] Scheduled Procedures Name Priority Associated Diagnoses Date/Ti [...] Additional history exists CKD PHOS USE SMARTSET 46930 08/22/202408/05, 08/20/2023, 11/07/2022, Additional history exists Albumin/Creatinine Ratio 12/05/2024 12/06/2023, 03/06 Adult Wellness Visit 02/03/2025 02/04/2024, 02/29/20 23 Depression Screening 02/03/2025 02/04/2024, 12/10/19 24 CKD HGB USE SMARTSET 37591 03/02/202503/02, 03/02/2024, 02/17/2024, Additional history exists DXA Scan 04/22/2025 04/22/2023, 04/05, 12/25/2018, Additional history exists Pneumococcal Vaccine: 65+ Years Completed 02/01/2016, 10/27/2002 VITAMIN D LEVEL ONCE IN A LIFETIME-USE SMARTSET# 18254 Completed 09/16/2023, 10/20/2019, 03/11/2012, Additional history exists [...] this encounter Medical Devices Implanted Type Area Fabrics And Material Cutter Device Identifier Shelf Expiration Date Model / Serial / Lot Implant System, Trim-It Drill Pin [id number](.078" X 4" Implanted:Qty: 1 on 10/10/2017 by Sydney Castelan DPM at OR [facility] Right: Toe 04/04/2019 AR-4152DS / / [id number] Medtronic Attesta Surescan Pacemaker Implanted:Qty: 1 on 06/09/2020 by Chanel Lin DO at OR [facility] Left: Chest 08/01/2021 ATSR01 / [id number] / Nail Gamma3 Left [id number] - [id number] Implanted:Qty: 1 on 01/20/2021 by Alli Townsend MD at OR [facility] Left: Hip MILAN : TRAUMA 12/03/2023 3525-034 0S / / [id number] Screw Lag 10.5x95mm - [id number] Implanted:Qty: 1 on 01/20/2021 by Alli Townsend MD at OR [facility] Left: Hip MILAN : TRAUMA 11/02/2025 3060-009 5S / / [id number] Screw T2 Alpha Lock 5x47.5mm - [id number] Implanted:Qty: 1 on 01/20/2021 by Alli Townsend MD at OR [facility] Left: Hip MILAN : TRAUMA 05/04/2029 2360-504 7S / / [id number] documented as of this encounter Visit Diagnoses Diagnosis assistant terminal manager current use of anticoagulant therapy- Primary documented in this encounter Advance Directives Documents on File Type Date Recorded Patient Ornithology Teacher Expl anation POLST 07/15/2023 [place] OR [facility] FOR [...] First Alternate Health Care Agent Care Teams Integrated Marketing Manager Relationship Specialty Start Date End Date Amor Pate MD 21 [place] [address] PCP - General Family Medicine 12/06/22 documented as of this encounter
--- OUTSIDE RECORDS SUMMARY | 2024-08-18 16:24 | External Medical Summary | Summary of Care ---
Author Name Unknown Organization [facility] Address [address] [place] [address] Phone [phone] Care Team Providers Care Beamer Helper Name Role Phone Amor Pate MD Primary Care Provider [phone] Reason for Visit * Reason Onset Date Comments [facility]: Maintenance 03/28/2024 Encounter Details Date Type Department Care Team (Late st Contact Info) Description 03/28/2024 9:15 AM EDT Scheduled Telephone [facility], [facility] [address] [place] [address] [facility], Nurse [facility] [address] [place] [address] Allergies No known active allergiesdocumented as of this encounter (statuses as of 03/28/2024) Medications Medication Sig Dispensed Refills Start Date [...] in the morning. 30 Tablet 07/14/2023 Active Klgwmkv-Ehlpzoywj-Na tamin D ER 600-40-500 MG-MG-UNIT Tablet Extended [...] morning. 45 Tablet 3 12/25/2023 Active Nystatin 748882 UNIT/GM External CreamIndications:Can didal intertrigo Apply topically [...] as of this encounter (statuses as of 03/28/2024) Active Problems Problem Noted Date Diagnosed Date [...] 2016. Based on 12/12/2015 EUS/pat, per Dr lEena, pt will need follow-up CT of the [...] multicystic lesion of the pancreas CEA, FLUID 69626.0 ng/mL Final COMMENT Final The reference range [...] 06/18/2013 Last Assessment & Plan: S/p pacemaker FDC current use of anticoagulant therapy 0 08/28/2010 [...] does not have a Power of Sales Commissions Analyst or Advanced Directives in place at [...] as of this encounter (statuses as of 03/28/2024) Resolved Problems Problem Noted Date Diagnosed Date [...] as of this encounter (statuses as of 03/28/2024) Immunizations Name Administration Dates Next Due COVID-19 [...] Telephone Encounter - Letty Downing RN - 03/28/2024 8:34 AM EDT Phone call scheduled- 24/ 48 hr f/u- UTI symptoms- please bring supplies to the pt so she can obtain a urine with reflex to culture specimen. Contacted pt, feeling well this morning. Denies changes in symptoms or new onset of fever/chills, nausea, vomiting, diarrhea, abdominal/flank pain. Coordinated time to drop off urine supplies. documented in this encounter Plan of Treatment Upcoming Encounters Date Type Department Care Team (Late st Contact Info) Description 03/28/2024 10:00 AM EDT Home Visit [facility], [address] [address] [facility], Nurse [address] [address] 03/29/2024 9:30 AM EDT Scheduled Telephone [facility], [address] [address] [facility], Nurse [address] [address] 04/01/2024 3:00 PM EDT Telemedicine [facility], [address] [address] Kayla Thompson, PRODUCT ARCHITECT [address] [place] [address] Carol Blevins, Community [facility] Cooky Packer [address] [place] [address] 04/08/2024 8:10 AM EDT Laboratory Lab Mobile Phlebotomy [facility] [address] [place] [address] [facility], [facility] Mobile Home Draw [address] [place] [address] 04/09/2024 6:00 AM EDT Anticoagulation Centralized Clinical Pharmacy Services, Derrek Denton [address] [place] [address] [place] [address] Ccps, [address] [place] [address] 04/10/2024 11:30 AM EDT Scheduled Telephone [facility], [facility] [address] [place] [address] Cyndie Hilton RDN [address] [place] [address] 04/20/2024 4:00 PM EDT Home Visit [facility] [address] [place] [address] Allison Young RN [address] [place] [address] 04/29/2024 2:40 PM EDT Office Visit Podiatry, [facility] [address] [place] [address] Sydney Castelan DPM [address] [place] [address] 05/05/2024 2:00 PM EDT Office Visit Cardiology, [address] [place] [address] Stephanie Ramos PA-C [address] [place] [address] 05/14/2024 1:20 PM EDT Office Visit Gastroenterology, [facility] [address] [place] [phone] Cindy Elena, [address] [facility] [address] 06/17/2024 11:00 AM EST Telemedicine Hematology/Oncology, [address] [place] [address] Billy Basurto MD 400 [place] [phone] 08/18/2024 3:40 PM EST Office Visit Otolaryngology, [address]wo[address] Loz[address] [place] [address] Hema Hercules PA-C [address] [place] [address] 08/26/2024 5:40 PM EST Office Visit [facility], [address] [place] [phone] Amor Pate MD [address] [place] [address] 09/10/2024 12:50 PM EST Office Visit Dermatology, [address] [place] [facility] [address] [place] [address] Marilyn Ozuna PA-C [address] [place] [address] 12/31/2024 1:00 PM EDT Cardiac Studies Cardiology, [place] 400 [facility] [place] [address] [place]acy, Pacer [facility] 400 [facility] [place] [address] 02/04/2025 12:00 PM EDT Home Visit Care at Home [address] [place], [place] [phone] Carol Mathew PA-C [address] [place], [place] [phone] Scheduled Procedures Name Priority Associated Diagnoses Date/Ti [...] 10/03/2012, 07/04/2005, 08/22/1992 COVID-19 Vaccine ( season) 2023 10/26/2020, 09/30/2020 HbA1c 01/08/2024 07/09/2023, 04/01/2023 Influenza Vaccine (FLU shot) (#1) 2024 04/29/2023, 05/28/2022, 05/18/2021, Additional history exists Diabetic Eye Exam 06/19/2024 06/19/2023, , 01/12/2019, Additional history exists CKD PHOS USE SMARTSET 94245 08/22/202408/05, 08/20/2023, 11/07/2022, Additional history exists Albumin/Creatinine Ratio 12/05/2024 12/06/2023, 03/06 Adult Wellness Visit 02/03/2025 02/04/2024, 02/29/20 23 Depression Screening 02/03/2025 02/04/2024, 12/10/19 24 CKD HGB USE SMARTSET 65564 03/02/202503/02, 03/02/2024, 02/17/2024, Additional history exists DXA Scan 04/22/2025 04/22/2023, 04/05, 12/25/2018, Additional history exists Pneumococcal Vaccine: 65+ Years Completed 02/01/2016, 10/27/2002 VITAMIN D LEVEL ONCE IN A LIFETIME-USE SMARTSET# 69585 Completed 09/16/2023, 10/20/2019, 03/11/2012, Additional history exists [...] this encounter Medical Devices Implanted Type Area Paraffin Plant Operator Device Identifier Shelf Expiration Date Model / Serial / Lot Implant System, Trim-It Drill Pin [id number]" X 4" Implanted:Qty: 1 on 10/10/2017 by Sydney Castelan DPM at OR [facility] Right: Toe 04/04/2019 AR-[id number] / / [id number] Medtronic Attesta Surescan Pacemaker Implanted:Qty: 1 on 06/09/2020 by Chanel Lin DO at OR [facility] Left: Chest 08/01/2021 ATSR01 / [id number] / Nail [id number] Left [id number] - [id number] Implanted:Qty: 1 on 01/20/2021 by Alli Townsend MD at OR [facility] Left: Hip MILAN : TRAUMA 12/03/2023 3525-034 0S / / [id number] Screw Lag 10.5x95mm - [id number] Implanted:Qty: 1 on 01/20/2021 by Alli Townsend MD at OR [facility] Left: Hip MILAN : TRAUMA 11/02/2025 3060-009 5S / / [id number] Screw T2 Alpha Lock 5x47.5mm - [id number] Implanted:Qty: 1 on 01/20/2021 by Alli Townsend MD at OR [facility] Left: Hip MILAN : TRAUMA 05/04/2029 [id number] [id number] / / [id number] documented as of this encounter Advance Directives Documents on File Type Date Recorded Patient Student Services Director Expl anatcas POL 07/15/2023 [facility] FOR [facility]-SUSTAINING [...] First Alternate Health Care Agent Care Teams Beamer Helper Relationship Specialty Start Date End Date Amor Pate MD [address] [place] [address] PCP - General Family Medicine 12/06/22 documented as of this encounter
--- OUTSIDE RECORDS SUMMARY | 2024-08-18 16:24 | External Medical Summary | Summary of Care ---
Author Name Unknown Organization [facility] Address [address] [place] [address] Phone [phone] Care Team Providers Care Yeast Fermentation Attendant Name Role Phone Amor Pate MD Primary Care Provider [phone] Reason for Visit * Reason Onset Date Comments [facility]: Acute 03/27/2024 Encounter Details Date Type Department Care Team (Late st Contact Info) Description 03/27/2024 Telephone [facility], [facility] [address] [facility] [address] Emelia Jefferson RN [address] [place] [facility] [place] [address] [facility]: Acute Allergies No known active allergiesdocumented as of this encounter (statuses as of 03/27/2024) Medications Medication Sig Dispensed Refills Start Date [...] in the morning. 30 Tablet 07/14/2023 Active Reuzlkx-Ylnpibhhr-Id tamin D ER 600-40-500 MG-MG-UNIT Tablet Extended [...] morning. 45 Tablet 3 12/25/2023 Active Nystatin 529047 UNIT/GM External CreamIndications:Can didal intertrigo Apply topically [...] as of this encounter (statuses as of 03/27/2024) Active Problems Problem Noted Date Diagnosed Date [...] multicystic lesion of the pancreas CEA, FLUID 86436.0 ng/mL Final COMMENT Final The reference range [...] Last Assessment & Plan: S/p pacemaker supervisor diagnostic current use of anticoagulant therapy 0 08/28/2010 [...] patient does not have a Power of Unindentured Apprentice or Advanced Directives in place at this [...] as of this encounter (statuses as of 03/27/2024) Resolved Problems Problem Noted Date Diagnosed Date [...] as of this encounter (statuses as of 03/27/2024) Immunizations Name Administration Dates Next Due COVID-19 [...] Influenza, Split, I IV3, With Preserve, Inj 04/26/2014,04/23/2013,04/24/2012,04/25,04/25/2010,05/24/2009,05/25/2008 ,05/07/2007,06/22/2006,07/04/2005,05/06,06/01/2002 TD - Tetanus/Diptheria (ADULT) 08/22/1992 [...] encounter Miscellaneous Notes * Addendum Note - Emelia Jefferson RN - 03/27/2024 3:10 PM EDTAddended by: EMELIA JEFFERSON on: 03/27/2024 03:10 PM Modules accepted: Orders * Telephone Encounter - Emelia Jefferson RN - 03/27/2024 2:56 PM EDT Outgoing call to pt and notified her that a urine will need to be re collected for urine with reflex to culture. She only has the urine collection hat, she will need another sterile cup. Order for CHW entered. TT sent to [facility] surgery scheduler in TT role. No CHW available today. Will add on to [facility] weekend nurse. Emelia OLSEN, REGINA [facility] Intake Nurse Navigator Triage * Addendum Note - Tomás Henriquez MD - 03/27/2024 2:26 PM EDTAddended by: TOMÁS HENRIQUEZ on: 03/27/2024 02:26 PM Modules accepted: Orders * Telephone Encounter - Emelia Jefferson RN - 03/27/2024 2:17 PM EDT Received message from Dr Henriquez. TT sent to him re: she was satisfied re: CT pancreas as nothing had changed. However, whomever put the order in for the urine reflex did not choose "reflex to culture" thus a culture is not and will not be done. Do you want her to provide another specimen? Emelia OLSEN, RN [facility] Intake Nurse Navigator Triage * Telephone Encounter - Tomás Henriquez MD - 03/27/2024 2:12 PM EDT Recommendations: UA is not screaming return UTI so would want to wait for urine culture before starting antibiotic therapy again. 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 No orders of the defined types were placed in this encounter. E * Telephone Encounter - Emelia Jefferson Cade, RN - 03/27/2024 9:36 AM EDT Images from the original note were not included. [facility] insurance territory manager Acute Call Date: 03/27/2024 Time: 9:36 AM Name: Zulma Villar : 1935 Caller: Zulma Relationship to pt- self Chief Complaint Patient presents with [facility]: Acute HPI: Zulma Villar is a 88 year old female that is calling [facility] Intake to report persistent UTI symptoms, has not heard back about urine testing or CT pancreas report results. Nursing Assessment: Patient's chief complaint for this call: Urinary symptoms Zulma is calling to inquire what the urine testing revealed- she did provide a specimen on 03/23/24. She is also asking about the CT pancreas results. Notified pt that a urine, reflex to microscopic was ordered and run, the culture was not ordered nor completed. The pt did complete the Macrobid as prescribed but her symptoms persist. She states that when she gets a UTI the it "drags me down" and causes her to have leg weakness. This is her typical sign/symptom of UTI. She denies fever or chills. Denies NVD. She does have burning with urination at times. Urinary frequency is usual for her. She does have urinary urgency at times. Denies foul odor to the urine. Urine is yellow, not bloody. Denies bladder pain, Denies any vaginal symptoms. She does report that her right side hurts at waistline when she lies on it. She is also falling asleep easily duringthe day which is unusual for her. She does have occasional constipation maybe every other week, does take stool softeners. Read the CT report impression to the pt as above. Pain Denies pain Baseline Assessment Able to performing ADLs at baseline (walking, daily tasks, etc.): No Chief Complaint is related to a chronic condition: No Patient prescribed oxygen? No Patient has been ordered DME equipment (assistive devices, respiratory equipment, etc.): Unknown Medication Reconciliation: (See medication list) Taking medication as ordered: Yes Medications ordered/taking to treat reason for call: Yes, PRN medication(s) she did complete the Macrobid as prescribed on 03/13/24 Heart failure symptoms: No COPD exacerbation symptoms: No Reinforcement Education: Continue to take all medications as prescribed Maintain hydration- increase water intake Wipe from front to back, change undergarments whenever wet Monitor for worsening symptoms to report: fever, chills, NVD, increased weakness, confusion, lethargy, bloody, cloudy or foul smelling urine Treatment/Plan: (need to report) Level of call: Acute Appointment scheduled for same day: No Provider Name: - Treatment plan until appointment: as above Will send to Provider for orders/ recommendations Scheduled 24/48 hr /fu calls Call back instructions provided to patient. Emelia OLSEN, RN [facility] Intake Nurse Navigator Triage documented in this encounter Plan of Treatment Upcoming Encounters Date Type Department Care Team (Late st Contact Info) Description 03/28/2024 9:15 AM EDT Scheduled Telephone [facility], [address] [place] [address] [facility] Nurse [address] [place] [address] 03/29/2024 9:30 AM EDT Scheduled Telephone [facility], [address] [place] [address] [facility] Nurse [address] [place] [address] 04/01/2024 3:00 PM EDT Telemedicine [facility], [facility] 132 [facility] [place] [address] Kayla Thompson CRNP 132 [facility] [place] [address] Carol Blevins, Community Health It Infrastructure Engineer [address] [place] [address] 04/08/2024 8:10 AM EDT Laboratory Lab Mobile Phlebotomy GL 400 [facility] [place] [address] Gl, l Mobile Home Draw 400 [facility] [place] [address] 04/09/2024 6:00 AM EDT Anticoagulation Centralized Clinical Pharmacy Services, Derrek [address] [place] [address] Ccps, [address] [place] [address] 04/10/2024 11:30 AM EDT Scheduled Telephone [facility], [facility] [address] [facility] [place] [address] Cyndie Hilton, RDN [address] [facility] [place] [address] 04/20/2024 4:00 PM EDT Home Visit [facility], [facility] 132 [facility] [place] [address] Allison Young RN 132 [facility] [place] [address] 04/29/2024 2:40 PM EDT Office Visit Podiatry, [address] [place] [address] Sydney Castelan, [facility] 400 [facility] [address] 05/05/2024 2:00 PM EDT Office Visit Cardiology, [place] 400 [facility] [place] [address] Stephanie Ramos PA-C 400 [facility] [place] [address] 05/14/2024 1:20 PM EDT Office Visit Gastroenterology, [facility] [address] [place] [phone] Cindy Elena, DO [address] [place] [address] 06/17/2024 11:00 AM EST Telemedicine Hematology/Oncology, [facility] 400 [facility] [place] [address] Billy Basurto MD 400 [facility] [phone] 08/18/2024 3:40 PM EST Office Visit Otolaryngology, [place] [address] [place] [address] Hema Hercules PA-C [address] [place] [address] 08/26/2024 5:40 PM EST Office Visit [facility], [place] 21 [facility] [place] [phone] Amor Pate MD 21 [facility] [place] [address] 09/10/2024 12:50 PM EST Office Visit Dermatology, [place] [address] [facility] 140 [place] [address] Marilyn Ozuna PA-C 27 [place] [address] 12/31/2024 1:00 PM EDT Cardiac Studies Cardiology, [place] 400 [facility] [place] [address] Lucita Singh [facility] [address] [place] [address] 02/04/2025 12:00 PM EDT Home Visit Care at Home [address] [place] [address] Carol Mathew PA-C [address] [place] [address] Scheduled Orders Name Type Priority Associated Diagnoses Orde r Schedule URINALYSIS, REFLEX TO CULTURE (NOT FOR NEUTROPENIC PATIENTS) Lab Routine Dysuria Expected: 03/27/2024, Expires: 03/27/2025 Scheduled Procedures Name Priority Associated Diagnoses Date/Ti [...] Additional history exists CKD PHOS USE SMARTSET 52580 08/22/202408/05, 08/20/2023, 11/07/2022, Additional history exists Albumin/Creatinine Ratio 12/05/2024 12/06/2023, 03/06 Adult Wellness Visit 02/03/2025 02/04/2024, 02/29/20 23 Depression Screening 02/03/2025 02/04/2024, 12/10/19 24 CKD HGB USE SMARTSET 99323 03/02/202503/02, 03/02/2024, 02/17/2024, Additional history exists DXA Scan 04/22/2025 04/22/2023, 04/05, 12/25/2018, Additional history exists Pneumococcal Vaccine: 65+ Years Completed 02/01/2016, 10/27/2002 VITAMIN D LEVEL ONCE IN A LIFETIME-USE SMARTSET# 94605 Completed 09/16/2023, 10/20/2019, 03/11/2012, Additional history exists [...] this encounter Medical Devices Implanted Type Area Diesel Machinist Device Identifier Shelf Expiration Date Model / Serial / Lot Implant System, Trim-It Drill Pin [id number]" X 4" Implanted:Qty: 1 on 10/10/2017 by Sydney Castelan DPM at OR [facility] Right: Toe 04/04/2019 AR-[id number] / / [id number] Medtronic Attesta Surescan Pacemaker Implanted:Qty: 1 on 06/09/2020 by Chanel Lin DO at OR [facility] Left: Chest 08/01/2021 ATSR01 / [id number] / Nail [id number] Left [id number] - [id number] Implanted:Qty: 1 on 01/20/2021 by Alli Townsend MD at OR [facility] Left: Hip MILAN : TRAUMA 12/03/2023 3525-034 0S / / [id number] Screw Lag 10.5x95mm - [id number] Implanted:Qty: 1 on 01/20/2021 by Alli Townsend MD at OR [facility] Left: Hip MILAN : TRAUMA 11/02/2025 3060-009 5S / / [id number] Screw T2 Alpha Lock 5x47.5mm - [id number] Implanted:Qty: 1 on 01/20/2021 by Alli Townsend MD at OR [facility] Left: Hip IMLAN : TRAUMA 05/04/2029 2360-504 7S / / [id number] documented as of this encounter Visit Diagnoses Diagnosis Dysuria- Primary documented in this encounter Advance Directives Documents on File Type Date Recorded Patient Process Equipment Operator Expl anation POLST 07/15/2023 [place] [...] First Alternate Health Care Agent Care Teams Yeast Fermentation Attendant Relationship Specialty Start Date End Date Amor Pate MD [address] [place] [address] PCP - General Family Medicine 12/06/22 documented as of this encounter
--- OUTSIDE RECORDS SUMMARY | 2024-08-18 16:24 | External Medical Summary ---
Author Name Unknown Address Unknown Organization K1F:LABORATORY GL - 400 [facility] [address] Laboratory Report Ordering Provider Test Date Status [place] 03/28/2024 11:49:50 Final Observation Date Value Abnormality Reference (Units ) Status Color of Urine by Auto 03/28/2024 11:49:50 Yellow Light Yellow, Yellow, Dark Yellow Final Clarity, Urine 03/28/2024 11:49:50 Clear Clear Final Glucose [Mass/volume] in Urine by Automated test strip 03/28/2024 11:49:50 Negative Negative (mg/dL) Final Bilirubin.total [Presence] in Urine by Automated test strip 03/28/2024 11:49:50 Negative Negative Final Ketones [Mass/volume] in Urine by Automated test strip 03/28/2024 11:49:50 Negative Negative (mg/dL) Final Specific gravity, Urine 03/28/2024 11:49:50 1.022 1.003-1.030 Final Hemoglobin [Presence] in Urine by Automated test strip 03/28/2024 11:49:50 Negative Negative Final pH, Urine 03/28/2024 11:49:50 6.0 5.0-7.5 (Units) Final Protein [Mass/volume] in Urine by Automated test strip 03/28/2024 11:49:50 Negative Negative (mg/dL) Final Urobilinogen [Mass/volume] in Urine by Automated test strip 03/28/2024 11:49:50 0.2 0.2, 1.0 (mg/dL) Final Nitrite [Presence] in Urine by Automated test strip 03/28/2024 11:49:50 Negative Negative Final Leukocyte esterase [Presence] in Urine by Automated test strip 03/28/2024 11:49:50 Small Abnormal Negative Final RBC, Urine 03/28/2024 11:49:50 3-5 Abnormal 0-2 (/HPF) Final WBC, Urine 03/28/2024 11:49:50 6-9 Abnormal 0-2 (/HPF) Final Bacteria [#/area] in Urine sediment by Microscopy high power field 03/28/2024 11:49:50 26-50 Abnormal 0-25 (/HPF) Final CULTURE, URINE - [facility] 03/28/2024 11:49:50 Final Quantitative urine culture t o be performed Performing Location LABORATORY [facility] [place] [address]
--- OUTSIDE RECORDS SUMMARY | 2024-08-18 16:24 | External Medical Summary | Summary of Care ---
Author Name Unknown Organization [facility] Address [address] [place] [address] Phone [phone] Care Team Providers Care Development Director Name Role Phone Amor Pate MD Primary Care Provider [phone] Reason for Visit * Reason Onset Date Comments [facility]: Maintenance 03/29/2024 Encounter Details Date Type Department Care Team (Late st Contact Info) Description 03/29/2024 9:30 AM EDT Scheduled Telephone [facility], [facility] [address] [place] [address] [facility], Nurse [facility] [address] [place] [address] Allergies No known active allergiesdocumented as of this encounter (statuses as of 03/29/2024) Medications Medication Sig Dispensed Refills Start Date [...] in the morning. 30 Tablet 07/14/2023 Active Obztbcj-Sfrwytpcn-Nw tamin D ER 600-40-500 MG-MG-UNIT Tablet Extended [...] morning. 45 Tablet 3 12/25/2023 Active Nystatin 857346 UNIT/GM External CreamIndications:Can didal intertrigo Apply topically [...] as of this encounter (statuses as of 03/29/2024) Active Problems Problem Noted Date Diagnosed Date [...] multicystic lesion of the pancreas CEA, FLUID 83667.0 ng/mL Final COMMENT Final The reference range [...] 06/18/2013 Last Assessment & Plan: S/p pacemaker correction current use of anticoagulant therapy 0 08/28/2010 [...] patient does not have a Power of Front End Technician or Advanced Directives in place at [...] as of this encounter (statuses as of 03/29/2024) Resolved Problems Problem Noted Date Diagnosed Date [...] as of this encounter (statuses as of 03/29/2024) Immunizations Name Administration Dates Next Due COVID-19 [...] Telephone Encounter - Kamla Calzada RN - 03/29/2024 11:07 AM EDT Images from the original note were not included. [facility] Telephonic Nurse Follow-Up Call [facility] Subprogram: Focused Care Management (3-9 months) Follow Up Call Type: Weekend Call Acute issue requiring follow-up call: Other: 24 hrs post Urine collection for Urinary symptom of burning, and has weakness Objective: 02/12/2024 2:38 PM 02/07/2024 9:51 AM 02/04/2024 4:38 PM 01/22/2024 4:17 PM 01/03/2024 9:20 PM VITALS ACROSS ENCOUNTERS BP 114/62 122/80 110/60 130/67 Pulse 61 66 60 66 Weight 67.1 kg BMI 23.9 BMI 23.9 kg/m2 Urine culture/sensitivity pending Remote Patient Monitoring: NONE Oxygen Needs: NO supplemental oxygen needs identified DME Needs: NO DME needs identified Medications: No medication or dose adjustments made during acute episode Subjective: Condition Status: [facility] Current Concerns: [facility], message left for callback to [facility] Disposition: Follow up call scheduled for tomorrow with [employer] Operations Duty Manager Future Visits Scheduled: Future Appointments-next 60 days Date/Time Provider Specialty Dept Phone 04/01/2024 3:00 PM Carol Blevins, Community Health Barge Captain; Kayla Thompson CRNP [facility] [phone] 04/08/2024 8:10 AM [facility], [facility] Mobile Home Draw Laboratory Processing [phone] 04/09/2024 6:00 AM [facility] [phone] 04/10/2024 11:30 AM Cyndie Hilton RDN [facility] [phone] 04/20/2024 4:00 PM Allison Young RN [facility] [phone] 04/29/2024 2:40 PM (Arrive by 2:25 PM) Sydney Castelan DPM Podiatry [phone] 05/05/2024 2:00 PM (Arrive by 1:45 PM) Stephanie Ramos PA-C Cardiology [phone] 05/14/2024 1:20 PM (Arrive by 1:05 PM) Cindy Elena DO Gastroenterology [phone] 06/17/2024 11:00 AM Billy Basurto MD Hematology Oncology [phone] 08/18/2024 3:40 PM (Arrive by 3:25 PM) Hema Hercules PA-C Otolaryngology [phone] 08/26/2024 5:40 PM (Arrive by 5:25 PM) Amor Pate MD Family Medicine [phone] 09/10/2024 12:50 PM (Arrive by 12:35 PM) Marilyn Ozuna PA-C Dermatology [phone] 12/31/2024 1:00 PM (Arrive by 12:45 PM) Francisco [facility] Cardiology [phone] 02/04/2025 12:00 PM Carol Mathew PA-C Family Medicine [phone] Kamla Calzada, RN documented in this encounter Plan of Treatment Upcoming Encounters Date Type Department Care Team (Late st Contact Info) Description 03/30/2024 12:15 PM EDT Scheduled Telephone [facility], [facility] [place] [address] Coordinator, [facility] 132 [facility] [place] [address] 04/01/2024 3:00 PM EDT Telemedicine [facility], [facility] 132 [facility] [place] [address] Kayla Thompson CRNP 132 [facility] [place] [address] Carol Blevins, Community Health Barge Captain [address] [place] [address] 04/08/2024 8:10 AM EDT Laboratory Lab Mobile Phlebotomy [facility] 400 [facility] [place] [address] [facility], [facility] Mobile Home Draw 400 [facility] [place] [address] 04/09/2024 6:00 AM EDT Anticoagulation [facility]ized [facility], Derrek Denton [address] [place] [address] [place] [address] [facility]ps, [address] [place] [address] 04/10/2024 11:30 AM EDT Scheduled Telephone [facility], [facility] [address] [facility] [place] [address] Cyndie Hilton, RDN [address] [facility] [place] [address] 04/20/2024 4:00 PM EDT Home Visit [facility], [facility] 132 [facility] [place] [address] Allison Young RN 132 [facility] [place] [address] 04/29/2024 2:40 PM EDT Office Visit Podiatry, [facility] [address] [place] [address] Sydney Castelan, DPModesta [address] [place] [address] 05/05/2024 2:00 PM EDT Office Visit Cardiology, [place] 400 [place] [address] Stephanie Ramos PA-C [address] [place] [address] 05/14/2024 1:20 PM EDT Office Visit Gastroenterology, [facility] [address] [place] [phone] Cindy Elena DO 132 [facility] [place] [address] 06/17/2024 11:00 AM EST Telemedicine Hematology/Oncology, [facility] 400 [facility] [address] Billy Basruto MD [facility] [place] [phone] 08/18/2024 3:40 PM EST Office Visit Otolaryngology, [place] [address] [place] [address] Hema Hercules PA-C [address] [place] [address] 08/26/2024 5:40 PM EST Office Visit Family [facility], [place] [address] [phone] Amor Pate MD [address] [address] 09/10/2024 12:50 PM EST Office Visit Dermatology, [place] [address] [facility] [address] [place] [address] Marilyn Ozuna PA-C [address] [place] [address] 12/31/2024 1:00 PM EDT Cardiac Studies Cardiology, [place] [address] [facility] [phone] [place] [address] [facility] [phone] 02/04/2025 12:00 PM EDT Home Visit [facility] at Home [address] [facility] [phone] Carol Mathew PA-C [address] [facility] [phone] Scheduled Procedures Name Priority Associated Diagnoses Date/Ti [...] 07/04/2005, 08/22/1992 COVID-19 Vaccine (3 - season) 2023 10/26/2020, 09/30/2020 HbA1c 01/08/2024 07/09/2023, 04/01/2023 Influenza Vaccine (FLU shot) (#1) 2024 04/29/2023, 05/28/2022, 05/18/2021, Additional history exists Diabetic Eye Exam 06/19/2024 06/19/2023, , 01/12/2019, Additional history exists CKD PHOS USE SMARTSET 81511 08/22/202408/05, 08/20/2023, 11/07/2022, Additional history exists Albumin/Creatinine Ratio 12/05/2024 12/06/2023, 03/06 Adult Wellness Visit 02/03/2025 02/04/2024, 02/29/20 23 Depression Screening 02/03/2025 02/04/2024, 12/10/19 24 CKD HGB USE SMARTSET 54904 03/02/202503/02, 03/02/2024, 02/17/2024, Additional history exists DXA Scan 04/22/2025 04/22/2023, 04/05, 12/25/2018, Additional history exists Pneumococcal Vaccine: 65+ Years Completed 02/01/2016, 10/27/2002 VITAMIN D LEVEL ONCE IN A LIFETIME-USE SMARTSET# 13777 Completed 09/16/2023, 10/20/2019, 03/11/2012, Additional history exists [...] this encounter Medical Devices Implanted Type Area Alarm Signaler Device Identifier Shelf Expiration Date Model / Serial / Lot Implant System, Trim-It Drill Pin [id number]" X 4" Implanted:Qty: 1 on 10/10/2017 by Sydney Castelan DPM at OR [facility] Right: Toe 04/04/2019 AR-[id number] / / [id number] Medtronic Attesta Surescan Pacemaker Implanted:Qty: 1 on 06/09/2020 by Chanel Lin DO at OR [facility] Left: Chest 08/01/2021 ATSR01 / [id number] / Nail [id number] Left [id number] - [id number] Implanted:Qty: 1 on 01/20/2021 by Alli Townsend MD at OR [facility] Left: Hip MILAN : TRAUMA 12/03/2023 3525-034 0S / / [id number] Screw Lag 10.5x95mm - [id number] Implanted:Qty: 1 on 01/20/2021 by Alli Townsend MD at OR [facility] Left: Hip MILAN : TRAUMA 11/02/2025 3060-009 5S / / [id number] Screw T2 Alpha Lock 5x47.5mm - [id number] Implanted:Qty: 1 on 01/20/2021 by Alli Townsend MD at OR [facility] Left: Hip MILAN : TRAUMA 05/04/2029 2360-504 7S / / [id number] documented as of this encounter Advance Directives Documents on File Type Date Recorded Patient Armature [employer] Expl anation POLST 07/15/2023 [place] OR [facility]AINING TREATMENT * Full Code [...] First Alternate Health Care Agent Care Teams Development Director Relationship Specialty Start Date End Date Amor Pate MD [address] [place] [phone] PCP - General Family Medicine 12/06/22 documented as of this encounter
--- OUTSIDE RECORDS SUMMARY | 2024-08-18 16:24 | External Medical Summary ---
Author Name Unknown Address Unknown Organization K01:[facility] - [address] [place] [address] Laboratory Report Ordering Provider Test Date Status [place] 03/28/2024 11:49:50 Final Observation Date Value Abnormality Reference (Units) Status Bacteria identified in Specimen by Culture 03/28/2024 11:49:50 No significant growth Final Test: Culture, Urine, Quanti tative
Specimen Source: Urine, Clean Catch
Specimen Type: Urine
Specimen Date: 03/28/2024 1149
Result Date: 03/29/2024 1304
Result Status: Final result
Resulting Lab: [facility]
[address]
[place] [address]

CULTURE

No significant growth

null Performing Location [facility] - [address] [facility] [address]
--- OUTSIDE RECORDS SUMMARY | 2024-08-18 16:24 | External Medical Summary | Summary of Care ---
Author Name Unknown Organization [facility] Address [address] [place] [address] Phone [phone] Care Team Providers Care Outsole Molder Name Role Phone Amor Pate MD Primary Care Provider [phone] Reason for Visit * Reason Comments [facility]: Maintenance Encounter Details Date Type Department Care Team (Late Contact Info) Description 03/28/2024 10:00 AM EDT Home Visit [facility], [facility] [address] [place] [address] [facility], Nurse [facility] [address] [place] [address] Dysuria Allergies No known active allergiesdocumented as of [...] in the morning. 30 Tablet 07/14/2023 Active Fppebpr-Bptnjwifl-Wd tamin D ER 600-40-500 MG-MG-UNIT Tablet Extended [...] morning. 45 Tablet 3 12/25/2023 Active Nystatin 530475 UNIT/GM External CreamIndications:Can didal intertrigo Apply topically [...] multicystic lesion of the pancreas CEA, FLUID 00740.0 ng/mL Final COMMENT Final The reference range [...] patient does not have a Power of Diet Aid or Advanced Directives in place at this [...] as of this encounter Progress Notes * Letty Downing RN - 03/28/2024 11:48 AM EDT Home visit to drop off urine testing supplies. Pt is able to void at time of visit. Urine specimen collected and submitted to [facility] lab. documented in this encounter Plan of Treatment Upcoming Encounters Date Type Department Care Team (Late st Contact Info) Description 03/29/2024 9:30 AM EDT Scheduled Telephone [facility], [facility] 132 [facility] [place] [address] [facility], Nurse [facility] 132 [facility] [place] [address] 04/01/2024 3:00 PM EDT Telemedicine [facility], [facility] 132 [facility] [place] [address] Kayla Thompson CRNP 132 [facility] [place] [address] Carol Blevins, Community Health Cutter And Edge Trimmer [address] [place] [address] 04/08/2024 8:10 AM EDT Laboratory Lab Mobile Phlebotomy [address] [address] Gl, [facility] Mobile Home Draw [address] [place] [address] 04/09/2024 6:00 AM EDT Anticoagulation Centralized [facility] Pharm[facility] Services, [address] [place] [address] Ccps, [address] [place] [address] 04/10/2024 11:30 AM EDT Scheduled Telephone [facility], [facility] [address] [facility] [place] [address] Cyndie Hilton RDN [address] [facility] [place] [address] 04/20/2024 4:00 PM EDT Home Visit [facility], [facility] 132 [facility] [place] [address] Allison Young, RN 132 [facility] [place] [address] 04/29/2024 2:40 PM EDT Office Visit Podiatry, [address] [place] [address] Sydney Castelan, DPM [address] [place] [address] 05/05/2024 2:00 PM EDT Office Visit Cardiology, [place] [facility] [place] [address] Stephanie Ramos PA-C [address] [place] [address] 05/14/2024 1:20 PM EDT Office Visit Gastroenterology, [facility] [address] [place] [phone] Cindy Elena, DO [address] [place] [address] 06/17/2024 11:00 AM EST Telemedicine Hematology/Oncology, [facility] 400 [place] [address] Billy Basurto MD [address] [place] [phone] 08/18/2024 3:40 PM EST Office Visit Otolaryngology, [facility] 27 [place] [address] Hema Hercules PA-C [address] [facility] [address] 08/26/2024 5:40 PM EST Office Visit Family [facility] 21 [facility] [place] [phone] Amor Pate MD 21 [facility] [address] 09/10/2024 12:50 PM EST Office Visit Dermatology, [place] [place] [address] [place] [address] [place] [address] Marilyn Ozuna PA-C [address] [place] [address] 12/31/2024 1:00 PM EDT Cardiac Studies Cardiology, [place] 400 [facility] [place] [address] [place] 400 [facility] [place] [address] 02/04/2025 12:00 PM EDT Home Visit Care at Home [address] [place], [place] [phone] Carol Mathew PA-C [address] [place], [place] [phone] Scheduled Orders Name Type Priority Associated Diagnoses Orde r Schedule URINALYSIS, REFLEX TO CULTUR E (CUP ONLY) Lab Routine Dysuria Ordered: 03/28/2024 URINALYSIS, REFLEX TO CULTURE Lab Routine Dysuria Ordered: 03/28/2024 Scheduled Procedures Name Priority Associated Diagnoses Date/Ti [...] Additional history exists CKD PHOS USE SMARTSET 67224 08/22/202408/05, 08/20/2023, 11/07/2022, Additional history exists Albumin/Creatinine Ratio 12/05/2024 12/06/2023, 03/06 Adult Wellness Visit 02/03/2025 02/04/2024, 02/29/20 23 Depression Screening 02/03/2025 02/04/2024, 12/10/19 24 CKD HGB USE SMARTSET 88581 03/02/202503/02, 03/02/2024, 02/17/2024, Additional history exists DXA Scan 04/22/2025 04/22/2023, 04/05, 12/25/2018, Additional history exists Pneumococcal Vaccine: 65+ Years Completed 02/01/2016, 10/27/2002 VITAMIN D LEVEL ONCE IN A LIFETIME-USE SMARTSET# 43423 Completed 09/16/2023, 10/20/2019, 03/11/2012, Additional history exists [...] this encounter Medical Devices Implanted Type Area Over Short And Damage Clerk Device Identifier Shelf Expiration Date Model / Serial / Lot Implant System, Trim-It Drill Pin [id number]" X 4" Implanted:Qty: 1 on 10/10/2017 by Sydney Castelan DPM at OR [facility] Right: Toe 04/04/2019 AR-[id number] / / [id number] Medtronic Attesta Surescan Pacemaker Implanted:Qty: 1 on 06/09/2020 by Chanel Lin DO at OR [facility] Left: Chest 08/01/2021 ATSR01 / [id number] / Nail [id number] Left [id number] - [id number] Implanted:Qty: 1 on 01/20/2021 by Alli Townsend MD at OR [facility] Left: Hip MILAN : TRAUMA 12/03/2023 3525-034 0S / / [id number] Screw Lag 10.5x95mm - [id number] Implanted:Qty: 1 on 01/20/2021 by Alli Townsend MD at OR [facility] Left: Hip MILAN : TRAUMA 11/02/2025 3060-009 5S / / [id number] Screw T2 Alpha Lock 5x47.5mm - [id number] Implanted:Qty: 1 on 01/20/2021 by Alli Townsend MD at OR [facility] Left: Hip MILAN : TRAUMA 05/04/2029 2360-504 7S / / [id number] documented as of this encounter Visit Diagnoses Diagnosis Dysuria documented in this encounter Advance Directives Documents on File Type Date Recorded Patient Lumber Salvager Expl anation POLST 07/15/2023 [place] OR [facility]-SUSTAINING TREATMENT * Full Code [...] First Alternate Health Care Agent Care Teams Outsole Molder Relationship Specialty Start Date End Date Amor Pate MD [address] [place] [phone] PCP - General Family Medicine 12/06/22 documented as of this encounter
--- OUTSIDE RECORDS SUMMARY | 2024-08-18 16:24 | External Medical Summary | Summary of Care ---
Author Name Unknown Organization [facility] Address [address] [place] [address] Phone [phone] Care Team Providers Care Social Worker Aide Name Role Phone Amor Pate MD Primary Care Provider [phone] -[phone] Reason for Visit * Reason Onset Date Comments [facility]: Acute 03/27/2024 Encounter Details Date Type Department Care Team (Late st Contact Info) Description 03/27/2024 Telephone [facility], [facility] [address] [facility] [address] Emelia Myers RN [address] [place] [facility] [place] [address] [facility]: Acute Allergies No known [...] in the morning. 30 Tablet 07/14/2023 Active Qqsussk-Mztsftvbp-Ac tamin D ER 600-40-500 MG-MG-UNIT Tablet Extended [...] morning. 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 TT sent to him re: she was satisfied re: CT pancreas as nothing had changed. However, whomever put the order in for the urine reflex did not choose "reflex to culture" thus a culture is not and will not be done. Do you want her to provide another specimen? Emelia OLSEN, RN [facility] Intake Nurse Navigator Triage * Telephone [...] encounter. E * Telephone Encounter - Emelia Myers RN - 03/27/2024 9:36 AM EDT Images from the original note were not included. [facility] senior agricultural assistant Acute Call Date: 03/27/2024 Time: 9:36 AM Name: Zulma Villar : 1935 Caller: Zulma Relationship to pt- self Chief Complaint Patient presents with [facility]: Acute HPI: Zulma Villar is a 88 year old female that is calling [facility] Intake to report persistent UTI [...] instructions provided to patient. Emelia OLSEN, RN [facility] Intake Nurse Navigator Triage documented in this encounter Plan of Treatment Upcoming Encounters Date Type Department Care Team (Late st Contact Info) Description 03/28/2024 9:15 AM EDT Scheduled Telephone [facility] at [address] [place] [address] [facility], Nurse [facility] 132 [place] [address] 03/29/2024 9:30 AM EDT Scheduled Telephone [facility], [address] [place] [address] [facility], Nurse [facility] 132 [place] [address] 04/01/2024 3:00 PM EDT Telemedicine [facility], [facility] 132 [place] [address] Kayla Thompson, TOOLS PROGRAMMER 132 [place] [address] Carol Blevins, Community Health Boom Operator [address] [place] [address] 04/08/2024 8:10 AM EDT Laboratory Lab Mobile Phlebotomy [facility] [address] [place] [address] [facility], [facility] Mobile Home Draw [address] [place] [address] 04/09/2024 6:00 AM EDT Anticoagulation Centralized Clinical Pharmacy Services, Derrek Denton [address] [place] [address] [place] [address] Ccps, [address] [place] [address] 04/10/2024 11:30 AM EDT Scheduled Telephone [facility], [facility] [address] [place] [address] Cyndie Hilton, TEMON [address] [place] [address] 04/20/2024 4:00 PM EDT Home Visit [facility] at [facility] 132 [place] [address] Allison Young RN 132 [facility] [place] [address] 04/29/2024 2:40 PM EDT Office Visit Podiatry, [facility] 400 [place] [address] Sydney Castelan, DPModesta 400 [place] [address] 05/05/2024 2:00 PM EDT Office Visit Cardiology, [place] [address] [place] [address] Stephanie Ramos PA-C [address] [place] [address] 05/14/2024 1:20 PM EDT Office Visit Gastroenterology, [facility] [address] [place] [phone] Cindy Elena DO 132 [facility] [place] [address] 06/17/2024 11:00 AM EST Telemedicine Hematology/Oncology, [address] [address] Billy Basurto MD [address] [place] [phone] 08/18/2024 3:40 PM EST Office Visit [facility] [address] [place] [address] Hema Hercules PA-C [address] [place] [address] 08/26/2024 5:40 PM EST Office Visit Family [facility], [place] [address] [place] [address] Amor Pate MD [address] [place] [address] 09/10/2024 12:50 PM EST Office Visit Dermatology, [place] [address] [facility] 140 [place] [address] Marilyn Ozuna PA-C [address] [place] [address] 12/31/2024 1:00 PM EDT Cardiac Studies Cardiology, [place] 400 [place] [address] [place], Pacer [facility] 400 [facility] [place] [address] 02/04/2025 12:00 PM EDT Home Visit Care at Home [address] [place], [place] [phone] Carol Mathew PA-C [address] [place], [place] [phone] Scheduled Orders Name Type Priority Associated Diagnoses [...] Additional history exists CKD PHOS USE SMARTSET 32006 08/22/202408/05, 08/20/2023, 11/07/2022, Additional history exists Albumin/Creatinine Ratio 12/05/2024 12/06/2023, 03/06 Adult Wellness Visit 02/03/2025 02/04/2024, 02/29/20 23 Depression Screening 02/03/2025 02/04/2024, 12/10/19 24 CKD HGB USE SMARTSET 48195 03/02/202503/02, 03/02/2024, 02/17/2024, Additional history exists DXA Scan 04/22/2025 04/22/2023, 04/05, 12/25/2018, Additional history exists Pneumococcal Vaccine: 65+ Years Completed 02/01/2016, 10/27/2002 VITAMIN D LEVEL ONCE IN A LIFETIME-USE SMARTSET# 59638 Completed 09/16/2023, 10/20/2019, 03/11/2012, Additional history exists [...] this encounter Medical Devices Implanted Type Area Supervisor Hairspring Fabrication Device Identifier Shelf Expiration Date Model / Serial / Lot Implant System, Trim-It Drill Pin [id number](.078" X 4" Implanted:Qty: 1 on 10/10/2017 by Sydney Castelan DPM at OR [facility] Right: Toe 04/04/2019 AR-4152DS / / [id number] Medtronic Attesta Surescan Pacemaker Implanted:Qty: 1 on 06/09/2020 by Chanel Lin DO at OR [facility] Left: Chest 08/01/2021 ATSR01 / [id number] / Nail [id number] Left [id number] - [id number] Implanted:Qty: 1 on 01/20/2021 by Alli Townsend MD at OR [facility] Left: Hip MILAN : TRAUMA 12/03/2023 3525-034 0S / / [id number] Screw Lag 10.5x95mm - [id number] Implanted:Qty: 1 on 01/20/2021 by Alli Townsend MD at OR [facility] Left: Hip MILAN : TRAUMA 11/02/2025 3060-009 5S / / [id number] Screw T2 Alpha Lock 5x47.5mm - [id number] Implanted:Qty: 1 on 01/20/2021 by Alli Townsend MD at OR [facility] Left: Hip MILAN : TRAUMA 05/04/2029 2360-504 7S / / [id number] documented as of this encounter Visit Diagnoses Diagnosis Dysuria- Primary documented in this encounter Advance Directives Documents on File Type Date Recorded Patient Digital Measurement Advisor Expl anation POL 07/15/2023 [place] OR [facility] FOR LIFE-SUSTAINING TREATMENT * Full [...] First Alternate Health Care Agent Care Teams Social Worker Aide Relationship Specialty Start Date End Date Amor Pate MD 21 [place] [address] PCP - General Family Medicine 12/06/22 documented as of this encounter
--- OUTSIDE RECORDS SUMMARY | 2024-08-18 16:24 | External Medical Summary | Summary of Care ---
Author Name Unknown Organization [facility] Address [address] [place] [address] Phone [phone] Care Team Providers Care Gauge And Weigh Machine Operator Name Role Phone Amor Pate MD Primary Care Provider +1 -[phone] Reason for Visit * Reason Onset Date Comments [facility]: Maintenance 03/28/2024 Encounter Details Date Type Department Care Team (Late st Contact Info) Description 03/28/2024 9:15 AM EDT Scheduled Telephone [facility], [facility] [address] [place] [address] [facility], Nurse [facility] [address] [place] [address] Allergies No known active allergiesdocumented as of [...] in the morning. 30 Tablet 07/14/2023 Active Ojyvgkt-Tirvmsrke-Wl tamin D ER 600-40-500 MG-MG-UNIT Tablet Extended [...] morning. 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 Contacted pt, feeling well this morning. C/o intermittent burning with urination and generalized weakness. Denies changes in symptoms or new onset of fever/chills, nausea, vomiting, diarrhea, abdominal/flank pain. Coordinated time to drop off urine supplies. documented in this encounter Plan of Treatment Upcoming Encounters Date Type Department Care Team (Late st Contact Info) Description 03/29/2024 9:30 AM EDT Scheduled Telephone [facility], [address] [address] [facility], Nurse [address] [address] 04/01/2024 3:00 PM EDT Telemedicine [facility], [address] [address] Kayla Thompson CRNP 132 [place] [address] Carol Blevins, Community Health Pay Clerk [address] [place] [address] 04/08/2024 8:10 AM EDT Laboratory Lab Mobile Phlebotomy [facility] [address] [place], [place] [address] [facility], [facility] Mobile Home Draw 400 [place] [address] 04/09/2024 6:00 AM EDT Anticoagulation Centralized Clinical Pharmacy Services, Derrek Denton [address] [place] [address] [place] [address] Ccps, [address] [place] [address] 04/10/2024 11:30 AM EDT Scheduled Telephone [facility], [facility] [address] [place] [address] Cyndie Hilton RDN [address] [place] [address] 04/20/2024 4:00 PM EDT Home Visit [facility] at [facility] 132 [place] [address] Allison Young RN 132 [facility] [place] [address] 04/29/2024 2:40 PM EDT Office Visit Podiatry, [facility] 400 [place] [address] Sydney Castelan DPM 400 [place] [address] 05/05/2024 2:00 PM EDT Office Visit Cardiology, [address] [address] Stephanie Ramos PA-C 400 [place] [address] 05/14/2024 1:20 PM EDT Office Visit G[facility], [facility] [address] [place] [phone] Cindy Elena, 132 [place] [address] 06/17/2024 11:00 AM EST Telemedicine Hematology/Oncology, [facility] 400 [place] [address] Billy Basurto MD 400 [place] [phone] 08/18/2024 3:40 PM EST Office Visit [facility], [facility] [address] [place] [address] Hema Hercules PA-C [address] [place] [address] 08/26/2024 5:40 PM EST Office Visit Family [facility], [place] [address] [place] [phone] Amor Pate MD [address] [place] [address] 09/10/2024 12:50 PM EST Office Visit Dermatology, [place] [address] [place] [address] Marilyn Ozuna PA-C [address] [place] [address] 12/31/2024 1:00 PM EDT Cardiac Studies Cardiology, [place] 400 [facility] [place] [address] [place] 400 [place] [address] 02/04/2025 12:00 PM EDT Home Visit Care at Home [address] [place], [place] [phone] Carol Mathew PA-C [address] [place], [place] [phone] Scheduled Procedures Name Priority Associated Diagnoses Date/Ti [...] 10/03/2012, 07/04/2005, 08/22/1992 COVID-19 Vaccine (3 - 2023-24 season) 2023 10/26/2020, 09/30/2020 HbA1c 01/08/2024 07/09/2023, 04/01/2023 Influenza Vaccine (FLU shot) (#1) 2024 04/29/2023, 05/28/2022, 05/18/2021, Additional history exists Diabetic Eye Exam 06/19/2024 06/19/2023, , 01/12/2019, Additional history exists CKD PHOS USE SMARTSET 39034 08/22/202408/05, 08/20/2023, 11/07/2022, Additional history exists Albumin/Creatinine Ratio 12/05/2024 12/06/2023, 03/06 Adult Wellness Visit 02/03/2025 02/04/2024, 02/29/20 23 Depression Screening 02/03/2025 02/04/2024, 12/10/19 24 CKD HGB USE SMARTSET 21442 03/02/202503/02, 03/02/2024, 02/17/2024, Additional history exists DXA Scan 04/22/2025 04/22/2023, 04/05, 12/25/2018, Additional history exists Pneumococcal Vaccine: 65+ Years Completed 02/01/2016, 10/27/2002 VITAMIN D LEVEL ONCE IN A LIFETIME-USE SMARTSET# 53112 Completed 09/16/2023, 10/20/2019, 03/11/2012, Additional history exists [...] this encounter Medical Devices Implanted Type Area Wind Turbine Mechanic Device Identifier Shelf Expiration Date Model / Serial / Lot Implant System, Trim-It Drill Pin [id number](.078" X 4" Implanted:Qty: 1 on 10/10/2017 by Sydney Castelan DPM at OR [facility] Right: Toe 04/04/2019 AR-4152DS / / [id number] Atsr01 Medtronic Attesta Surescan Pacemaker Implanted:Qty: 1 on 06/09/2020 by Chanel Lin DO at OR [facility] Left: Chest 08/01/2021 ATSR01 / [id number] / Nail Gamma3 Left [id number] - [id number] Implanted:Qty: 1 on 01/20/2021 by Alli Townsend MD at OR [facility] Left: Hip MILAN : TRAUMA 12/03/2023 3525-034 0S / / [id number] Screw Lag 10.5x95mm - [id number] Implanted:Qty: 1 on 01/20/2021 by Alli Townsend MD at OR [facility] Left: Hip MILAN : TRAUMA 11/02/2025 3060-009 5S / / [id number] Screw T2 Alpha Lock 5x47.5mm - [id number] Implanted:Qty: 1 on 01/20/2021 by Alli Townsend MD at OR [facility] Left: Hip MILAN : TRAUMA 05/04/2029 2360-504 7S / / [id number] documented as of this encounter Advance Directives Documents on File Type Date Recorded Patient Gyroscopic Instrument Tester Expl anation POLST 07/15/2023 [place] OR [facility] FOR LIFE-SUSTAINING TREATMENT [...] First Alternate Health Care Agent Care Teams Gauge And Weigh Machine Operator Relationship Specialty Start Date End Date Aomr Pate MD [address] [place] [address] PCP - General Family Medicine 12/06/22 documented as of this encounter
--- OUTSIDE RECORDS SUMMARY | 2024-08-18 16:25 | External Medical Summary ---
Author Name UNSPECIFIED Address Unknown Organization [facility] History of Encounters Reason for Assessment: Recertification ( follow-up) reassessment Functional Assessment Patient Has At Least 1 Unhea led Pressure Ulcer At Stage 2 Or Higher: Yes Current Ability: Bathing: able to partic ipate in bathing self in shower or tub, but requires presence of another person throughout the bath for assistance or supervision. Current Ability: Ambulation: Able to wal k only with the supervision or assistance of another person at all times.
--- OUTSIDE RECORDS SUMMARY | 2024-08-18 16:25 | External Medical Summary ---
Author Name Unknown Address Unknown Organization K1F:[facility] - [place] [address] Laboratory Report Ordering Provider Test Date Status ANDREW HOOVER 03/25/2024 11:01:54 Final Please draw PT/INR every 1-4 weeks or as requested by the [facility] Cou[facility]

Warfarin Therapy
INR: 2.0-3.0 conventional anticoagulation
INR: 2.5-3.5 high intensity anticoagulation Observation Date Value Abnormality Reference (Units ) Status PT 03/25/2024 11:01:54 22.9 Above high normal 11 .6-15.2 (seconds) Final INR 03/25/2024 11:01:54 2.0 Above high normal 0. 8-1.2 Final Performing Location [facility] - [address] [place] [address]
--- OUTSIDE RECORDS SUMMARY | 2024-08-18 16:25 | External Medical Summary | Summary of Care ---
Author Name Unknown Organization [facility] Address [address] [place] [address] Phone [phone] Care Team Providers Care Compacting Machine Operator/Tender Name Role Phone Amor Pate MD Primary Care Provider +1 -[phone] Reason for Visit * Reason Onset Date Comments [facility]: Acute 03/27/2024 Encounter Details Date Type Department Care Team (Late st Contact Info) Description 03/27/2024 Telephone [facility], [facility] [address] [facility] [address] Emelia Myers RN [address] [place] [facility] [place] [address] [facility]: Acute Allergies No known [...] in the morning. 30 Tablet 07/14/2023 Active Ubtewru-Hkctahcky-Ss tamin D ER 600-40-500 MG-MG-UNIT Tablet Extended [...] morning. 45 Tablet 3 12/25/2023 Active Nystatin 504462 UNIT/GM External CreamIndications:Can didal intertrigo Apply topically [...] multicystic lesion of the pancreas CEA, FLUID 75003.0 ng/mL Final COMMENT Final The reference range [...] patient does not have a Power of Tele Marketing Executive or Advanced Directives in place at this [...] encounter Miscellaneous Notes * Telephone Encounter - Oren Vyas MD - 03/27/2024 2:12 PM EDT Recommendations: [...] note were not included. [facility] brake press operator Acute Call Date: 03/27/2024 Time: 9:36 AM Name: Zulma Villar : 1935 Caller: Zulma Relationship to pt- self Chief Complaint Patient presents with [id number] At Home: Acute HPI: Zulma Villar is a 88 year old female that is calling [facility] Intake to report persistent UTI [...] instructions provided to patient. Emelia OLSEN, RN [facility] Intake Nurse Navigator Triage documented in this encounter Plan of Treatment Upcoming Encounters Date Type Department Care Team (Late st Contact Info) Description 03/28/2024 9:15 AM EDT Scheduled Telephone [facility] [place], [address] [place] [address] [facility] Nurse [address] [place] [address] 03/29/2024 9:30 AM EDT Scheduled Telephone [facility] [place], [facility] 132 [facility] [place] [address] [facility] Nurse [address] [place] [address] 04/01/2024 3:00 PM EDT Telemedicine [facility] [place], [facility] 132 [facility] [place] [address] Kayla Thompson CRNP 132 [facility] [place] [address] Carol Blevins, Community Health Graphics Intern [address] [place] [address] 04/08/2024 8:10 AM EDT Laboratory Lab Mobile Phlebotomy [facility] 400 [facility] [place] [address] [facility], Gml Mobile Home Draw 400 [place] [address] 04/09/2024 6:00 AM EDT Anticoagulation Centralized Clinical Pharmacy Services, Derrek Denton [address] [place] [address] [place] [address] Ccps, [address] [place] [address] 04/10/2024 11:30 AM EDT Scheduled Telephone [facility], [facility] [address] [facility] [place] [address] Cyndie Hilton, RDN [address] [facility] [place] [address] 04/20/2024 4:00 PM EDT Home Visit [facility], [facility] 132 [place] [address] Allison Young RN 132 [place] [address] 04/29/2024 2:40 PM EDT Office Visit Podiatry, [facility] 400 [facility] [address] Sydney Castelan, MARIO 400 [place] [address] 05/05/2024 2:00 PM EDT Office Visit Cardiology, [place] 400 [facility] [place] [address] Stephanie Ramos PA-C 400 [facility] [place] [address] 05/14/2024 1:20 PM EDT Office Visit Gastroenterology, [facility] [address] [place] [address] Cindy Elena, DO [address] [place] [address] 06/17/2024 11:00 AM EST Telemedicine Hematology/Oncology, [facility] 400 [facility] [place] [address] Billy Basurto MD 400 [facility] [place] [address] 08/18/2024 3:40 PM EST Office Visit Otolaryngology, [place] [address] [place] [address] Hema Hercules PA-C [address] [place] [address] 08/26/2024 5:40 PM EST Office Visit [facility] 21 [facility] [place] [phone] Amor aPte MD 21 [facility] [place] [address] 09/10/2024 12:50 PM EST Office Visit Dermatology, [place] [address] [place] [address] Marilyn Ozuna PA-C [address] [place] [address] 12/31/2024 1:00 PM EDT Cardiac Studies Cardiology, [place] [address] [place] [address] [place], [facility] [address] [place] [address] 02/04/2025 12:00 PM EDT Home Visit Care at Home [address] [place] [address] Carol Mathew PA-C [address] [place] [address] Scheduled Procedures Name Priority Associated [...] Additional history exists CKD PHOS USE SMARTSET 52242 08/22/202408/05, 08/20/2023, 11/07/2022, Additional history exists Albumin/Creatinine Ratio 12/05/2024 12/06/2023, 03/06 Adult Wellness Visit 02/03/2025 02/04/2024, 02/29/20 23 Depression Screening 02/03/2025 02/04/2024, 12/10/19 24 CKD HGB USE SMARTSET 45278 03/02/202503/02, 03/02/2024, 02/17/2024, Additional history exists DXA Scan 04/22/2025 04/22/2023, 04/05, 12/25/2018, Additional history exists Pneumococcal Vaccine: 65+ Years Completed 02/01/2016, 10/27/2002 VITAMIN D LEVEL ONCE IN A LIFETIME-USE SMARTSET# 31401 Completed 09/16/2023, 10/20/2019, 03/11/2012, Additional history exists [...] this encounter Medical Devices Implanted Type Area Pillowcase Turner Device Identifier Shelf Expiration Date Model / Serial / Lot Implant System, Trim-It Drill Pin [id number](.078" X 4" Implanted:Qty: 1 on 10/10/2017 by Sydney Castelan DPM at OR [facility] Right: Toe 04/04/2019 AR-4152DS / / [id number] Atsr01 Medtronic Attesta Surescan Pacemaker Implanted:Qty: 1 on 06/09/2020 by Chanel Lin DO at OR [facility] Left: Chest 08/01/2021 ATSR01 / [id number] / Nail Gamma3 Left [id number] - [id number] Implanted:Qty: 1 on 01/20/2021 by Alli Townsend MD at OR [facility] Left: Hip MILAN : TRAUMA 12/03/2023 3525-034 0S / / [id number] Screw Lag 10.5x95mm - [id number] Implanted:Qty: 1 on 01/20/2021 by Alli Townsend MD at OR [facility] Left: Hip MILAN : TRAUMA 11/02/2025 3060-009 5S / / [id number] Screw T2 Alpha Lock 5x47.5mm - [id number] Implanted:Qty: 1 on 01/20/2021 by Alli Townsend MD at OR [facility] Left: Hip MILAN : TRAUMA 05/04/2029 2360-504 7S / / [id number] documented as of this encounter Advance Directives Documents on File Type Date Recorded Patient Manager Art Raman OLIVO 07/15/2023 [place] OR [facility] FOR LIFE-SUSTAINING TREATMENT [...] First Alternate Health Care Agent Care Teams Compacting Machine Operator/Tender Relationship Specialty Start Date End Date Amor Pate MD [address] [place] [id number] PCP - General Family Medicine 12/06/22 documented as of this encounter
--- OUTSIDE RECORDS SUMMARY | 2024-08-18 16:25 | External Medical Summary | Summary of Care ---
Author Name Unknown Organization [facility] Address [address] [place] [address] Phone [phone] Care Team Providers Care Bearing Maker Name Role Phone Amor Pate MD Primary Care Provider +1 [phone] Encounter Details Date Type Department Care Team (Late st Contact Info) Description 03/23/2024 2:30 PM EDT Home Visit Care Coordination and Integration [address] [place], [place] [phone] Zohaib Castillo [facility] Health Cutlery Grinder [address] [place] [address] Allergies No known active allergiesdocumented as of this encounter (statuses as of 03/23/2024) Medications Medication Sig Dispensed Refills Start Date [...] in the morning. 30 Tablet 07/14/2023 Active Zmlhjej-Hiezzjxcp-Uo tamin D ER 600-40-500 MG-MG-UNIT Tablet Extended [...] mouth daily. 90 Tablet 3 11/19/2023 Active [facility] Wound &Burn Dressing External Paste Apply to [...] morning. 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 Patient expressed that she thought she could provide a specimen now. CHW waited and then delivered the specimen to the lab at the [facility]. Jake Castillo Community Health Worker Lead [facility] [phone] documented in this encounter Plan of Treatment Upcoming Encounters Date Type Department Care Team (Late st Contact Info) Description 03/25/2024 8:00 AM EDT Laboratory Lab Mobile Phlebotomy [facility] 400 [place] [address] [facility] Mobile Home Draw 400 [facility] [address] 03/26/2024 6:00 AM EDT Anticoagulation Centralized Clinical Pharmacy Services, Derrek Denton [address] [place] [address] [place] Rosenbaum [address] Ccps, [address] [place] [address] 04/01/2024 3:00 PM EDT Telemedicine [facility], [facility] 132 [facility] [address] Kayla Thompson CRNP 132 [facility] [address] Carol Blevins, Community Health Cutlery Grinder [address] [place], [place] [phone] 04/10/2024 11:30 AM EDT Scheduled Telephone [facility], [facility] [address] [facility] [place] S[place] [address] Cyndie Hilton RDN [address] [facility] [place] S[place] [address] 04/20/2024 4:00 PM EDT Home Visit [facility], [facility] 132 [facility] [place] [address] Allison Young RN 132 [facility] [address] 04/29/2024 2:40 PM EDT Office Visit Podiatry, [facility] 400 [place] [facility] SSD[facility]CO Cheng [address] Sydney aCstelan, DELORIS 400 [place] [address] 05/05/2024 2:00 PM EDT Office Visit Cardiology, [place] 400 [facility] [place] [address] Stephanie Ramos PA-C 400 [facility] [place] [address] 05/14/2024 1:20 PM EDT Office Visit Gastroenterology, [facility] [address] [place] [address] Cindy Elena, DO [address] [place] [address] 06/17/2024 11:00 AM EST Telemedicine Hematology/Oncology, [facility] 400 [facility] [place]ELYFR[place] [address] Billy Basurto MD 400 [facility] [place] [address] 08/18/2024 3:40 PM EST Office Visit Otolaryngology, [place] 27 [place] [address] Hema Hercules PA-C 27 [address] KingtowFR[place] [address] 08/26/2024 5:40 PM EST Office Visit [facility], [place] 21 [place] [phone] Amor Pate MD 21 [facility] [place] [address] 09/10/2024 12:50 PM EST Office Visit Dermatology, [place] 27 [address] [place] 140 [place] [address] Marilyn Ozuna PA-C 27 [address] KingtoFR[place] [address] 12/31/2024 1:00 PM EDT Cardiac Studies Cardiology, [place] [address] [place] [place] [address] [place] 400 [facility] [place] [address] 02/04/2025 12:00 PM EDT Home Visit Care at Home [address] [place] [address] Carlo Mathew PA-C [address] [place], [place] [phone] Scheduled Procedures Name Priority Associated Diagnoses Date/Ti [...] Additional history exists CKD PHOS USE SMARTSET 81040 08/22/202408/05, 08/20/2023, 11/07/2022, Additional history exists Albumin/Creatinine Ratio 12/05/2024 12/06/2023, 03/06 Adult Wellness Visit 02/03/2025 02/04/2024, 02/29/20 23 Depression Screening 02/03/2025 02/04/2024, 12/10/19 24 CKD HGB USE SMARTSET 09600 03/02/202503/02, 03/02/2024, 02/17/2024, Additional history exists DXA Scan 04/22/2025 04/22/2023, 04/05, 12/25/2018, Additional history exists Pneumococcal Vaccine: 65+ Years Completed 02/01/2016, 10/27/2002 VITAMIN D LEVEL ONCE IN A LIFETIME-USE SMARTSET# 09233 Completed 09/16/2023, 10/20/2019, 03/11/2012, Additional history exists [...] this encounter Medical Devices Implanted Type Area Cleat Feeder Device Identifier Shelf Expiration Date Model / Serial / Lot Implant System, Trim-It Drill Pin [id number](.078" X 4" Implanted:Qty: 1 on 10/10/2017 by Sydney Castelan DPM at OR [facility] Right: Toe 04/04/2019 AR-4152DS / / [id number] Medtronic Attesta Surescan Pacemaker Implanted:Qty: 1 on 06/09/2020 by Chanel Lin DO at OR [facility] Left: Chest 08/01/2021 ATSR01 / [id number] / Nail [id number] Left [id number] - [id number] Implanted:Qty: 1 on 01/20/2021 by Alli Townsend MD at OR [facility] Left: Hip MILAN : TRAUMA 12/03/2023 3525-034 0S / / [id number] Screw Lag 10.5x95mm - [id number] Implanted:Qty: 1 on 01/20/2021 by Alli Townsend MD at OR [facility] Left: Hip MILAN : TRAUMA 11/02/2025 3060-009 5S / / [id number] Screw T2 Alpha Lock 5x47.5mm - [id number] Implanted:Qty: 1 on 01/20/2021 by Alli Townsend MD at OR [facility] Left: Hip MILAN : TRAUMA 05/04/2029 2360-504 7S / / [id number] documented as of this encounter Advance Directives Documents on File Type Date Recorded Patient Osteopathic Medicine Teacher Expl anation POLST 07/15/2023 [place] [facility] AT [...] First Alternate Health Care Agent Care Teams Bearing Maker Relationship Specialty Start Date End Date Amor Pate MD 21 [place] [address] PCP - General Family Medicine 12/06/22 documented as of this encounter
--- OUTSIDE RECORDS SUMMARY | 2024-08-18 16:25 | External Medical Summary | Summary of Care ---
Author Name Unknown Organization [facility] Address [address] [place] [address] Phone [phone] Care Team Providers Care Fulling Machine Operator Name Role Phone Amor Pate MD Primary Care Provider [phone] [phone] Reason for Visit * Reason Comments Dosage Adjustment Via Phone (anticoag Cl inic) Encounter Details Date Type Department Care Team (Late st Contact Info) Description 03/26/2024 6:00 AM EDT Anticoagulation Centralized Clinical Pharmacy Services, Derrek Denton [address] [place] [address] [place] [address] [place] [address] extermination supervisor current use of anticoagulant therapy* Allergies No known active allergiesdocumented as of this encounter (statuses as of 03/26/2024) Medications Medication Sig Dispensed Refills Start Date [...] in the morning. 30 Tablet 07/14/2023 Active Cujmuef-Ayhhbdhhb-Lh tamin D ER 600-40-500 MG-MG-UNIT Tablet Extended [...] morning. 45 Tablet 3 12/25/2023 Active Nystatin 693138 UNIT/GM External CreamIndications:Can didal intertrigo Apply topically [...] as of this encounter (statuses as of 03/26/2024) Active Problems Problem Noted Date Diagnosed Date [...] multicystic lesion of the pancreas CEA, FLUID 99567.0 ng/mL Final COMMENT Final The reference range [...] patient does not have a Power of Spool Tender or Advanced Directives in place at this [...] as of this encounter (statuses as of 03/26/2024) Resolved Problems Problem Noted Date Diagnosed Date [...] as of this encounter (statuses as of 03/26/2024) Immunizations Name Administration Dates Next Due COVID-19 [...] this encounter Progress Notes * Gadiel Dominguez, [facility] - 03/26/2024 10:49 AM EDT Contacts Type Contact Phone/Fax 03/26/2024 10:48 AM EDT Phone (Outgoing) Zulma Villar (Self) [phone] (H) Spoke to Patient Subjective Patient Findings [...] noted by Pharmacist: Yes Gadiel Dominguez CPhT 03/26/2024, 10:49 AM * Kadie Byers RPh - 03/26/2024 8:50 AM EDT Coumadin Clinic (region specific) Objective Current Warfarin Dose As of 03/26/2024 Warfarin maintenance plan: 4 mg (2 mg x 2) every Fri; 2 mg (2 mg x 1) all other days INR Result As of 03/26/2024 INR goal: 2.0-3.0 INR used for dosin.0 (03/25/2024) Assessment & Plan Warfarin Plan As of 03/26/2024 Full warfarin instructions: 4 mg every Fri; 2 mg all other days No change documented: Kadie Byers RPh Next INR check: 04/08/2024 Repeat PT/INR in 2 week(s) Weekly dose: not changed Additional Dosing Information: Description [facility] Lorraine Singh fax [phone] Boost- 1/day Tech to contact patient with dose instructions as noted. Kadie Byers RPh 03/26/2024, 8:51 AM documented in this encounter Plan of Treatment Upcoming Encounters Date Type Department Care Team (Late st Contact Info) Description 04/01/2024 3:00 PM EDT Telemedicine [facility] [address] [facility] [place] [address] Kayla Thompson CRNP [address] [place] [address] Carol Blevins, Community Health Pi/Senior Research Associate [address] [facility] [place] [address] 04/08/2024 8:10 AM EDT Laboratory Lab Mobile Phlebotomy [address] [place] [address] [facility], [facility] Mobile Home Draw 400 [facility] [place] [address] 04/10/2024 11:30 AM EDT Scheduled Telephone [facility], [facility] 1000 [address] [facility] [place] [address] Cyndie Hilton, RDN 1000 [address] [facility] [place] S[place] [address] 04/20/2024 4:00 PM EDT Home Visit [facility], [facility] 132 [facility] [place] [address] Allison Young RN 132 [facility] [place] [address] 04/29/2024 2:40 PM EDT Office Visit Podiatry, [facility] 400 [facility] [address] Sydney Castelan DPM 400 [place] [address] 05/05/2024 2:00 PM EDT Office Visit Cardiology, [place] 400 [place] [address] Stephanie Ramos PA-C 400 [place] [address] 05/14/2024 1:20 PM EDT Office Visit Gastroenterology, [facility] 310 [facility] [phone] Cindy Elena DO 132 [facility] [place] [address] 06/17/2024 11:00 AM EST Telemedicine Hematology/Oncology, [facility] 400 [facility] [place]FR[place] [address] Billy Basurto MD 400 [place] [address] 08/18/2024 3:40 PM EST Office Visit Otolaryngology, [place] [address] [place] [address] Hema Hercules PA-C 27 [address] [facility] cheng [address] 08/26/2024 5:40 PM EST Office Visit Family [facility] 21 [place] [address] Amor Pate MD 21 [facility] [address] 09/10/2024 12:50 PM EST Office Visit Dermatology, [place]wo[place] 27 [address] [facility] 140 [place] [address] Marilyn Ozuna PA-C 27 [place] [address] 12/31/2024 1:00 PM EDT Cardiac Studies Cardiology, [place] 400 [facility] [place] [address] [place], [facility] 400 [facility] [address] 02/04/2025 12:00 PM EDT Home Visit Care at Home [address] [place], [place] [phone] Carol Mathew PA-C [address] [place] [address] Scheduled Procedures Name Priority Associated [...] Additional history exists CKD PHOS USE SMARTSET 94370 08/22/202408/05, 08/20/2023, 11/07/2022, Additional history exists Albumin/Creatinine Ratio 12/05/2024 12/06/2023, 03/06 Adult Wellness Visit 02/03/2025 02/04/2024, 02/29/20 23 Depression Screening 02/03/2025 02/04/2024, 12/10/19 24 CKD HGB USE SMARTSET 35098 03/02/202503/02, 03/02/2024, 02/17/2024, Additional history exists DXA Scan 04/22/2025 04/22/2023, 04/05, 12/25/2018, Additional history exists Pneumococcal Vaccine: 65+ Years Completed 02/01/2016, 10/27/2002 VITAMIN D LEVEL ONCE IN A LIFETIME-USE SMARTSET# 80013 Completed 09/16/2023, 10/20/2019, 03/11/2012, Additional history exists [...] this encounter Medical Devices Implanted Type Area Floral Specialist Device Identifier Shelf Expiration Date Model / Serial / Lot Implant System, Trim-It Drill Pin [id number](.078" X 4" Implanted:Qty: 1 on 10/10/2017 by Sydney Castelan DPM at OR [facility] Right: Toe 04/04/2019 AR-4152DS / / [id number] Medtronic Attesta Surescan Pacemaker Implanted:Qty: 1 on 06/09/2020 by Chanel Lin DO at OR [facility] Left: Chest 08/01/2021 ATSR01 / [id number] / Nail Gamma3 Left [id number] - [id number] Implanted:Qty: 1 on 01/20/2021 by Alli Townsend MD at OR [facility] Left: Hip MILAN : TRAUMA 12/03/2023 3525-034 0S / / [id number] Screw Lag 10.5x95mm - [id number] Implanted:Qty: 1 on 01/20/2021 by Alli Townsend MD at OR [facility] Left: Hip MILAN : TRAUMA 11/02/2025 3060-009 5S / / [id number] Screw T2 Alpha Lock 5x47.5mm - [id number] Implanted:Qty: 1 on 01/20/2021 by Alli Townsend MD at OR [facility] Left: Hip MILAN : TRAUMA 05/04/2029 2360-504 7S / / [id number] documented as of this encounter Visit Diagnoses Diagnosis extermination supervisor current use of anticoagulant therapy- Primary documented in this encounter Advance Directives Documents on File Type Date Recorded Patient Public Service Administrator Expl anation POLST 07/15/2023 [place] OR [facility]-SUSTAINING TREATMENT * Full Code [...] First Alternate Health Care Agent Care Teams Fulling Machine Operator Relationship Specialty Start Date End Date Amor Pate MD 21 [place] [phone] PCP - General Family Medicine 12/06/22 documented as of this encounter
--- OUTSIDE RECORDS SUMMARY | 2024-08-18 16:25 | External Medical Summary | Summary of Care ---
Author Name Unknown Organization [facility] Address [address] [place] [address] Phone [phone] Care Team Providers Care Pit Shoveler Name Role Phone Amor Pate MD Primary Care Provider +1 -[phone] Reason for Visit * Reason Onset Date Comments [facility]: Acute 03/27/2024 Encounter Details Date Type Department Care Team (Late st Contact Info) Description 03/27/2024 Telephone [facility], [facility] [address] [facility] [address] Emelia Myers RN [address] [place] [address] [facility]: Acute Allergies No known [...] in the morning. 30 Tablet 07/14/2023 Active Wqhpduc-Adaefootu-Qi tamin D ER 600-40-500 MG-MG-UNIT Tablet Extended [...] morning. 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 [facility] insurance claims adjuster Acute Call Date: 03/27/2024 Time: 9:36 AM Name: Zulma Villar : 1935 Caller: Zulma Relationship to pt- self Chief Complaint Patient presents with [facility] At [facility]: Acute HPI: Zulma Villar is a 88 year old female that is calling [facility] Intake to report persistent UTI [...] instructions provided to patient. Emelia OLSEN, RN [facility] Intake Nurse Navigator Triage documented in this encounter Plan of Treatment Upcoming Encounters Date Type Department Care Team (Late st Contact Info) Description 03/28/2024 9:15 AM EDT Scheduled Telephone [facility], [address] [place] [address] [facility], Nurse [address] [place] [address] 03/29/2024 9:30 AM EDT Scheduled Telephone [facility], [address]DA[address] [address] [facility], Nurse [address] [place] [address] 04/01/2024 3:00 PM EDT Telemedicine [facility], [address] [place] [address] Kayla Thompson CRNP 132 [place] [address] Carol Blevins, Community Health Head Coach [address] [place] [address] 04/08/2024 8:10 AM EDT Laboratory Lab Mobile Phlebotomy [facility] 400 [place] [address] [facility], [facility] Mobile Home Draw 400 [place] [address] 04/09/2024 6:00 AM EDT Anticoagulation Centralized Clinical Pharmacy Services, Derrek Denton [address] [place] [address] [place]baum [address] Ccps, [address] [place] Schmidt [address] 04/10/2024 11:30 AM EDT Scheduled Telephone [facility], [facility] 1000 [address] [facility] [place] [address] Cyndie Hilton, RDN 1000 [address] [facility] [place] S[place] [address] 04/20/2024 4:00 PM EDT Home Visit [facility], [facility] 132 [facility] [place] [address] Allison Young RN 132 [facility] [place] [address] 04/29/2024 2:40 PM EDT Office Visit Podiatry, [address] [address] Sydney Castelan DPM 400 [place] [address] 05/05/2024 2:00 PM EDT Office Visit Cardiology, [address] [address] Stephanie Ramos PA-C 400 [place] [address] 05/14/2024 1:20 PM EDT Office Visit Gastroenterology, [facility] 310 [place] [address] Cindy Elena DO 132 [facility] [address] 06/17/2024 11:00 AM EST Telemedicine Hematology/Oncology, [address] [address] Billy Basurto MD 400 [place] [address] 08/18/2024 3:40 PM EST Office Visit Otolaryngology, [place]woa [place]ozada[place] 27 [place] [address] Hema Hercules PA-C [address] [place] [address] 08/26/2024 5:40 PM EST Office Visit Family Psychiatric, [place] 21 [place] [phone] Amor Pate MD 21 [place] [address] 09/10/2024 12:50 PM EST Office Visit Dermatology, [place] 27 [address] 140 [place] [address] Marilyn Ozuna PA-C [address] [place] [address] 12/31/2024 1:00 PM EDT Cardiac Studies Cardiology, [place] 400 [facility] [place] [address] [facility] 400 [facility] [place] [address] 02/04/2025 12:00 PM EDT Home Visit Care at Home [address] [place] [address] Carol Mathew PA-C [address] [place], [place] [phone] Scheduled Procedures Name Priority Associated Diagnoses Date/Ti [...] Additional history exists CKD PHOS USE SMARTSET 78209 08/22/202408/05, 08/20/2023, 11/07/2022, Additional history exists Albumin/Creatinine Ratio 12/05/2024 12/06/2023, 03/06 Adult Wellness Visit 02/03/2025 02/04/2024, 02/29/20 23 Depression Screening 02/03/2025 02/04/2024, 12/10/19 24 CKD HGB USE SMARTSET 43697 03/02/202503/02, 03/02/2024, 02/17/2024, Additional history exists DXA Scan 04/22/2025 04/22/2023, 04/05, 12/25/2018, Additional history exists Pneumococcal Vaccine: 65+ Years Completed 02/01/2016, 10/27/2002 VITAMIN D LEVEL ONCE IN A LIFETIME-USE SMARTSET# 65858 Completed 09/16/2023, 10/20/2019, 03/11/2012, Additional history exists [...] this encounter Medical Devices Implanted Type Area Logistics/Shipper Device Identifier Shelf Expiration Date Model / Serial / Lot Implant System, Trim-It Drill Pin [id number](.078" X 4" Implanted:Qty: 1 on 10/10/2017 by Sydney Castelan DPM at OR [facility] Right: Toe 04/04/2019 AR-4152DS / / [id number] Medtronic Attesta Surescan Pacemaker Implanted:Qty: 1 on 06/09/2020 by Chanel Lin DO at OR [facility] Left: Chest 08/01/2021 ATSR01 / [id number] / Nail Gamma3 Left [id number] - [id number] Implanted:Qty: 1 on 01/20/2021 by Alli Townsend MD at OR [facility] Left: Hip MILAN : TRAUMA 12/03/2023 3525-034 0S / / [id number] Screw Lag 10.5x95mm - [id number] Implanted:Qty: 1 on 01/20/2021 by Alli Townsend MD at OR [facility] Left: Hip MILAN : TRAUMA 11/02/2025 3060-009 5S / / [id number] Screw T2 Alpha Lock 5x47.5mm - [id number] Implanted:Qty: 1 on 01/20/2021 by Alli Townsend MD at OR [facility] Left: Hip MILAN : TRAUMA 05/04/2029 2360-504 7S / / [id number] documented as of this encounter Advance Directives Documents on File Type Date Recorded Patient Lead Data Entry Operator Expl anation POLST 07/15/2023 [place] OR [facility] FOR LIFE-SUSTAINING TREATMENT [...] First Alternate Health Care Agent Care Teams Pit Shoveler Relationship Specialty Start Date End Date Amor Pate MD 21 [place] [phone] PCP - General Family Medicine 12/06/22 documented as of this encounter
--- OUTSIDE RECORDS SUMMARY | 2024-08-18 16:25 | External Medical Summary | Summary of Care ---
Author Name Unknown Organization [facility] Address [address] [place] [address] Phone [phone] Care Team Providers Care Counseling Aide Name Role Phone Amor Pate MD Primary Care Provider [phone] Reason for Visit * Reason Onset Date Comments [facility]: Acute 03/27/2024 Encounter Details Date Type Department Care Team (Late st Contact Info) Description 03/27/2024 Telephone [facility] [address] [facility] [address] Emelia Myers RN [address] [place] [facility] [place] [address] [facility]: Acute Allergies No known [...] in the morning. 30 Tablet 07/14/2023 Active Tlksdhg-Rnrdvyyjl-Fa tamin D ER 600-40-500 MG-MG-UNIT Tablet Extended [...] morning. 45 Tablet 3 12/25/2023 Active Nystatin 229927 UNIT/GM External CreamIndications:Can didal intertrigo Apply topically [...] multicystic lesion of the pancreas CEA, FLUID 08376.0 ng/mL Final COMMENT Final The reference range [...] patient does not have a Power of Patient Centered Care Specialist or Advanced Directives in place at [...] Miscellaneous Notes * Telephone Encounter - Emelia Myers, REGINA - 03/27/2024 2:17 PM EDT Received message from Dr Vyas. TT sent to him re: she was satisfied re: CT pancreas as nothing had changed. However, whomever put the order in for the urine reflex did not choose "reflex to culture" thus a culture is not and will not be done. Do you want her to provide another specimen? Emelia OHARAN, RN [facility] Intake Nurse Navigator Triage * Telephone Encounter - Oren Vyas MD [...] from the original note were not included. [facility] volunteer coordinator Acute Call Date: 03/27/2024 Time: 9:36 AM Name: Zulma Villar : 1935 Caller: Zulma Relationship to pt- self Chief Complaint Patient presents with [employer] At [facility]: Acute HPI: Zulma Villar is a 88 year old female that is calling [facility] Intake to report persistent UTI [...] instructions provided to patient. Emelia OLSEN, RN [facility] Intake Nurse Navigator Triage documented in this encounter Plan of Treatment Upcoming Encounters Date Type Department Care Team (Late st Contact Info) Description 03/28/2024 9:15 AM EDT Scheduled Telephone [facility] [address] [place] [address] [facility], Nurse [address] [place] [address] 03/29/2024 9:30 AM EDT Scheduled Telephone [facility] [address] [place] [address] Region, Nurse [facility] [address] [place] [address] 04/01/2024 3:00 PM EDT Telemedicine [facility], [facility] 132 [place] [address] Kayla Thompson CRNP 132 [facility] [place] [address] Carol Blevins, Community Health Inventory Control Associate [address] [place] [address] 04/08/2024 8:10 AM EDT Laboratory Lab Mobile Phlebotomy GL [address] [place] [address] Gl, [facility] Mobile Home Draw [address] [place] [address] 04/09/2024 6:00 AM EDT Anticoagulation Centralized Clinical Pharmacy Services, [address] [place] [address] [facility], [address] [place] [address] 04/10/2024 11:30 AM EDT Scheduled Telephone [facility], [facility] [address] [place] [address] Cyndie Hilton, RDN [address] [place] [address] 04/20/2024 4:00 PM EDT Home Visit [facility], [facility] [address] [facility] [place] [address] Allison Young RN [address] [place] [address] 04/29/2024 2:40 PM EDT Office Visit Podiatry, [address] [place] [address] Sydney Castelan, DPModesta 400 [facility] [address] 05/05/2024 2:00 PM EDT Office Visit Cardiology, [address] [address] Stephanie Ramos PA-C [address] [facility] [address] 05/14/2024 1:20 PM EDT Office Visit Gastroenterology, [facility] [address] [facility] [phone] Cindy Elena, DO [address] [place] [address] 06/17/2024 11:00 AM EST Telemedicine Hematology/Oncology, [address] [address] Billy Basurto MD 400 [facility] [phone] 08/18/2024 3:40 PM EST Office Visit Otolaryngology, [address] [place] [address] [place] [address] Hema Hercules PA-C 27 [place] [address] 08/26/2024 5:40 PM EST Office Visit Family [facility], [place] [address] [facility] [place] [phone] Amor Pate MD [address] [place] [address] 09/10/2024 12:50 PM EST Office Visit Dermatology, [place] [place] [address] [place] [address] [place] [address] Marilyn Ozuna PA-C [address] [place] [address] 12/31/2024 1:00 PM EDT Cardiac Studies Cardiology, [place] 400 [place] [address] Central, Pacer Clinic [address] [facility] [place] [address] 02/04/2025 12:00 PM EDT Home Visit Care at Home [address] [place] [address] Carol Mathew PA-C [address] [place] [address] Scheduled Procedures Name Priority Associated Diagnoses Date/Ti [...] Additional history exists CKD PHOS USE SMARTSET 41836 08/22/202408/05, 08/20/2023, 11/07/2022, Additional history exists Albumin/Creatinine Ratio 12/05/2024 12/06/2023, 03/06 Adult Wellness Visit 02/03/2025 02/04/2024, 02/29/20 23 Depression Screening 02/03/2025 02/04/2024, 12/10/19 24 CKD HGB USE SMARTSET 40324 03/02/202503/02, 03/02/2024, 02/17/2024, Additional history exists DXA Scan 04/22/2025 04/22/2023, 04/05, 12/25/2018, Additional history exists Pneumococcal Vaccine: 65+ Years Completed 02/01/2016, 10/27/2002 VITAMIN D LEVEL ONCE IN A LIFETIME-USE SMARTSET# 66880 Completed 09/16/2023, 10/20/2019, 03/11/2012, Additional history exists [...] this encounter Medical Devices Implanted Type Area Global Upstream Marketing Manager Device Identifier Shelf Expiration Date Model / Serial / Lot Implant System, Trim-It Drill Pin [id number]" X 4" Implanted:Qty: 1 on 10/10/2017 by Sydney Castelan DPM at OR [facility] Right: Toe 04/04/2019 AR-4152DS / / [id number] [id number] Medtronic Attesta Surescan Pacemaker Implanted:Qty: 1 on 06/09/2020 by Chanel Lin DO at OR [facility] Left: Chest 08/01/2021 ATSR01 / [id number] / Nail [id number] Left [id number] - [id number] Implanted:Qty: 1 on 01/20/2021 by Alli Townsend MD at OR [facility] Left: Hip MILAN : TRAUMA 12/03/2023 3525-034 0S / / [id number] Screw Lag 10.5x95mm - [id number] Implanted:Qty: 1 on 01/20/2021 by Alli Townsend MD at OR [facility] Left: Hip MILAN : TRAUMA 11/02/2025 3060-009 5S / / [id number] Screw T2 Alpha Lock 5x47.5mm - [id number] Implanted:Qty: 1 on 01/20/2021 by Alli Townsend MD at OR [facility] Left: Hip MILAN : TRAUMA 05/04/2029 2360-504 7S / / [id number] documented as of this encounter Advance Directives Documents on File Type Date Recorded Patient Cigarette Tester Expl anation POLST 07/15/2023 [place] OR [facility]-SUSTAINING [...] First Alternate Health Care Agent Care Teams Counseling Aide Relationship Specialty Start Date End Date Amor Pate MD 21 [place] [phone] PCP - General Family Medicine 12/06/22 documented as of this encounter
--- OUTSIDE RECORDS SUMMARY | 2024-08-18 16:25 | External Medical Summary | Summary of Care ---
Author Name Unknown Organization [facility] Address [address] [place] [address] Phone [phone] Care Team Providers Care Field Auditor Name Role Phone Amor Pate MD Primary Care Provider [phone] Reason for Visit * Reason Onset Date Comments [facility]: Acute 03/27/2024 Encounter Details Date Type Department Care Team (Late st Contact Info) Description 03/27/2024 Telephone [facility], [facility] [address] [facility] [address] Emelia Myers RN [address] [place] [address] [facility]: Acute Allergies No known [...] in the morning. 30 Tablet 07/14/2023 Active Cgnufew-Sqysiumyv-Ox tamin D ER 600-40-500 MG-MG-UNIT Tablet Extended [...] morning. 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 [facility] procedures analyst Acute Call Date: 03/27/2024 Time: 9:36 AM Name: Zulma Villar : 1935 Caller: Zulma Relationship to pt- self Chief Complaint Patient presents with [employer] [facility]: Acute HPI: Zulma Villar is a 88 year old female that is calling [employer] at Home Intake to report persistent UTI [...] instructions provided to patient. Emelia OLSEN, RN [facility] Intake Nurse Navigator Triage documented in this encounter Plan of Treatment Upcoming Encounters Date Type Department Care Team (Late st Contact Info) Description 03/28/2024 9:15 AM EDT Scheduled Telephone [facility], [address] [place] [address] [facility], Nurse [address] [place] [address] 03/29/2024 9:30 AM EDT Scheduled Telephone [facility], [address] [address] [facility], Nurse [address] [place] [address] 04/01/2024 3:00 PM EDT Telemedicine [facility], [address] [place] [address] Kayla Thompson CRNP [address] [place] [address] Carol Blevins, Community Health Park Interpreter [address] [place] [address] 04/08/2024 8:10 AM EDT Laboratory Lab Mobile Phlebotomy [facility] [address] [place] [address] [facility], [facility] Mobile Home Draw [address] [place] [address] 04/09/2024 6:00 AM EDT Anticoagulation Centralized Clinical Pharmacy Services, Derrek Denton [address] [place] [address] [place] [address] Ccps, [address] [place] [address] 04/10/2024 11:30 AM EDT Scheduled Telephone [facility], [facility] [address] [facility] [place] [address] Cyndie Hilton, RDN [address] [facility] [place] [address] 04/20/2024 4:00 PM EDT Home Visit [facility], [facility] [address] [facility] [place] [address] Allison Young RN [address] [facility] [place] [address] 04/29/2024 2:40 PM EDT Office Visit Podiatry, [address] [address] Sydney Castelan DPM [address] [place] [address] 05/05/2024 2:00 PM EDT Office Visit Cardiology, [address] [address] Stephanie Ramos PA-C [address] [place] [address] 05/14/2024 1:20 PM EDT Office Visit Gastroenterology, [facility] [address] [place] [address] Cindy Elena DO 132 [facility] [address] 06/17/2024 11:00 AM EST Telemedicine Hematology/Oncology, [address] [address] Billy Basurto MD [address] [place] [phone] 08/18/2024 3:40 PM EST Office Visit Otolaryngology, [address] [place] [address] [place] [address] Hema Hercules PA-C [address] [place] [address] 08/26/2024 5:40 PM EST Office Visit Family [facility], [place] [address] [place] [phone] Amor Pate MD [address] [place] [address] 09/10/2024 12:50 PM EST Office Visit Dermatology, [place] [address] [place] [address] Marilyn Ozuna PA-C [address] [place] [address] 12/31/2024 1:00 PM EDT Cardiac Studies Cardiology, [place] 400 [facility] [place] [address] [facility] 400 [facility] [place] [address] 02/04/2025 12:00 PM EDT Home Visit Care at Home [address] [place] [address] Carol Mathew PA-C [address] [place], [place] [phone] Scheduled Procedures Name Priority Associated Diagnoses Date/Ti [...] Additional history exists CKD PHOS USE SMARTSET 61335 08/22/202408/05, 08/20/2023, 11/07/2022, Additional history exists Albumin/Creatinine Ratio 12/05/2024 12/06/2023, 03/06 Adult Wellness Visit 02/03/2025 02/04/2024, 02/29/20 23 Depression Screening 02/03/2025 02/04/2024, 12/10/19 24 CKD HGB USE SMARTSET 61615 03/02/202503/02, 03/02/2024, 02/17/2024, Additional history exists DXA Scan 04/22/2025 04/22/2023, 04/05, 12/25/2018, Additional history exists Pneumococcal Vaccine: 65+ Years Completed 02/01/2016, 10/27/2002 VITAMIN D LEVEL ONCE IN A LIFETIME-USE SMARTSET# 19041 Completed 09/16/2023, 10/20/2019, 03/11/2012, Additional history exists [...] this encounter Medical Devices Implanted Type Area Satellite Installer Device Identifier Shelf Expiration Date Model / Serial / Lot Implant System, Trim-It Drill Pin [id number](.078" X 4" Implanted:Qty: 1 on 10/10/2017 by Sydney Castelan DPM at OR [facility] Right: Toe 04/04/2019 AR-4152DS / / [id number] Atsr01 Medtronic Attesta Surescan Pacemaker Implanted:Qty: 1 on 06/09/2020 by Chanel Lin DO at OR [facility] Left: Chest 08/01/2021 ATSR01 / [id number] / Nail Gamma3 Left [id number] - [id number] Implanted:Qty: 1 on 01/20/2021 by Alli Townsend MD at OR [facility] Left: Hip MILAN : TRAUMA 12/03/2023 3525-034 0S / / [id number] Screw Lag 10.5x95mm - [id number] Implanted:Qty: 1 on 01/20/2021 by Alli Townsend MD at OR [facility] Left: Hip MILAN : TRAUMA 11/02/2025 3060-009 5S / / [id number] Screw T2 Alpha Lock 5x47.5mm - [id number] Implanted:Qty: 1 on 01/20/2021 by Alli Townsend MD at OR [facility] Left: Hip MILAN : TRAUMA 05/04/2029 2360-504 7S / / [id number] documented as of this encounter Advance Directives Documents on File Type Date Recorded Patient Building Attendant Expl anation POLST 07/15/2023 [place] OR [facility] FOR LIFE-SUSTAINING TREATMENT * [...] First Alternate Health Care Agent Care Teams Field Auditor Relationship Specialty Start Date End Date Amor Pate MD [address] [place] [phone] PCP - General Family Medicine 12/06/22 documented as of this encounter
--- OUTSIDE RECORDS SUMMARY | 2024-08-18 16:26 | External Medical Summary | Summary of Care ---
Author Name Unknown Organization [facility] Address [address] [place] [address] Phone [phone] Care Team Providers Care Flatcar Whacker Name Role Phone Amor Pate MD Primary Care Provider [phone] Reason for Visit * Reason Onset Date Comments Advice 03/16/2024 Home Health PT r eferral Encounter Details Date Type Department Care Team (Late st Contact Info) Description 03/16/2024 Telephone [facility] [address] [place] [address] Amor Pate MD [address] [place] [address] Advice (Home Health PT referral ) Allergies No known active allergiesdocumented as of this encounter (statuses as of 03/20/2024) Medications Medication Sig Dispensed Refills Start Date End Date Status Sennosides 8.6 MG Oral Tablet (Senokot) Take 2 Tablets by mouth daily as needed for Constipation. 30 Tablet 07/14/2023 Active Additional Information Patient taking differently:2 Tablet Oral DAILY PRN, Constipation,Pt taking 1 every evening and additional 1 if needed, Reported on 11/26/2023 Ferrous Sulfate 325 (65 Fe) MG Oral Tablet (Feosol)Indications :Other iron deficiency anemias Take 1 tab Saturday [...] Tablet 07/14/2023 Active Biotin 1000 MCG Oral TabletIndications:R outine gynecological examination Take 1 Tablet by mouth in the morning. 30 Tablet 07/14/2023 Active Cvsnsbf-Pqvrswmbr-P itamin D ER 600-40-500 MG-MG-UNIT Tablet Extended Release 24 HourIndications:Vit easley D deficiency,Osteopen ia one daily (may use otc ) 30 Tablet 07/14/2023 Active Warfarin Sodium 2 MG Oral Tablet (Coumadin) Take 1 Tablet by mouth every evening. As directed by coumadin clinic 90 Tablet 1 08/09/2023 Active Additional Information Patient taking differently:2 mg Oral QPM-1999, As directed by coumadin clinic11/17 - Take 1mg every evening, Reported on 11/18/2023 Sertraline HCl 50 MG Oral Tablet (Zoloft)Indications :Anxiety about health Take 1 Tablet by mouth in the morning. 30 Tablet 5 08/16/2023 Active Folic Acid 0.8 MG Oral Capsule Take 1 Tablet by mouth in the morning. Active rOPINIRole HCl 0.25 MG Oral Tablet (Requip)Indications :Tremors of nervous system Take 1 Tablet by mouth in the morning and 1 Tablet in the evening. 180 Tablet 1 11/19/2023 Active Atorvastatin Calcium 20 MG Oral Tablet (Lipitor)Indication s:Atherosclerosis of aorta (HCC) Take 1 Tablet by mouth daily. 90 Tablet 3 11/19/2023 Active Medihoney Wound &Burn Dressing External Paste Apply to wound bed daily. Cover with Optifoam dressing 103 mL 2 2023 Active MEDICAL INSTRUCTIONSIndicat ions:Pressure injury of skin of buttock, unspecified injury stage, unspecified laterality Apply medihoney daily and allevyn foam to bilateral gluteal pressure injury. 1 Each 1 12/10/2023 Active Metoprolol Succinate ER 25 MG Oral Tablet Extended Release 24 Hour (toPROL XL) Take 0.5 Tablets by mouth in the morning. 45 Tablet 3 12/25/2023 Active Nystatin 091013 UNIT/GM External CreamIndications:Ca ndidal intertrigo Apply topically to affected area 2 times a day. To affacted area for two weeks. 15 g 2 12/31/2023 Active Omeprazole 20 MG Oral Capsule Delayed Release (PriLOSEC)Indicatio ns:GERD (gastroesophageal reflux disease) Take 1 capsule by mouth in the morning 90 Capsule 01/07/2024 Active MEDICAL INSTRUCTIONS Please provide wound care for heel and arm in manner nurse sees fit. Offload heel pressure injury. Make aware if not improving 1 Each 1 01/10/2024 Active Spironolactone 25 MG Oral Tablet (Aldactone)Indicati ons:Tachy-nikki syndrome (HCC),HTN, goal below 140/90 Take 1 Tablet by mouth once a day on Saturday, Saturday, and Saturday only. 40 Tablet 3 03/16/2024 Active Nitrofurantoin Monohyd Macro 100 MG Oral Capsule (Macrobid)Indicatio ns:Suspected urinary tract infection Take 1 Capsule by mouth in the morning and 1 Capsule before bedtime. Do all this for 5 days. 10 Capsule 03/13/2024 4 documented as of this encounter (statuses as of 03/20/2024) Active Problems Problem Noted Date Diagnosed Date [...] multicystic lesion of the pancreas CEA, FLUID 95069.0 ng/mL Final COMMENT Final The reference range [...] patient does not have a Power of Car Rental Agent or Advanced Directives in place at [...] as of this encounter (statuses as of 03/20/2024) Resolved Problems Problem Noted Date Diagnosed Date [...] as of this encounter (statuses as of 03/20/2024) Immunizations Name Administration Dates Next Due COVID-19 mRNA, LNP-s, No Pre serve, 2-Dose Series (Maps InDeed) 10/26/2020,09/30/2020 Pneumococcal Conjugate Vacc, 13 Valent (Prevnar) [...] Telephone Encounter - Amor Pate MD - 03/20/2024 2:37 PM EDT Called to speak to patient to relay message below. Explained that sessions not guaranteed if not making progress, she understood eventually. Encouraged to do home exercises * Telephone Encounter - Carol Guy OSA - 03/20/2024 1:54 PM EDT Pt called back she is still waiting on a call back about her missing PT sessions. She received 3 sessions and she was quoted to get 10 sessions. The person she spoke with said they would call her back after talking to the dr . Please call her back. * Telephone Encounter - Marilyn [place] MED ASSIST - 03/17/2024 10:27 AM EDT Spoke with PT she verbalized understanding the message, however she still is upset about not getting her full ten sessions with home PT. States she got a letter dated March 06 stating she was approved. * Telephone Encounter - Amor Pate MD - 03/16/2024 9:14 PM EDT See separate TE- she was not making progress. Continued progress needed for medicare to cover ongoing home PT, regardless of sessions initially approved. She can continue to walk with assistance of awalker or other individual, but will need to keep doing home exercises, ideally with someone else present, to improve her strength. * Telephone Encounter - Monique Trotter OSA - 03/16/2024 9:21 AM EDT Pt calling stating that she was notified by [facility] agency that she was discharged from physical therapy with them. She had had a goal of walking without the assistance of a walker, andsays that that goal was not met, and that her insurance had approved her for 10 sessions, and she only had 4 sessions so far. She would like to continue PT in her home and doesn't understand why thiswas discontinued. Please advise. documented in this encounter Plan of Treatment Upcoming Encounters Date Type Department Care Team (Late st Contact Info) Description 03/25/2024 8:00 AM EDT Laboratory Lab Mobile [facility] [place] [address] Gl, l Mobile Home Draw 400 [facility] [place]PITOFR[place] [address] 03/26/2024 6:00 AM EDT Anticoagulation Centralized Clinical Pharmacy Services, Derrek Denton [address] [place] [address] [place] [address] [facility], [address] [place] [address] 04/01/2024 3:00 PM EDT Telemedicine [facility], [facility] 132 [facility] [place] [address] Kayla Thompson CRNP 132 [facility] [place] [address] Carol Blevins, Community Health Architectural Technician [address] [place] [address] 04/10/2024 11:30 AM EDT Scheduled Telephone [facility], [facility] [address] [facility] [place] [address] Cyndie Hilton, TEMON [address] [facility] [place] [address] 04/20/2024 4:00 PM EDT Home Visit [facility], [facility] [place] [address] Allison Young RN [address] [place] [address] 04/21/2024 1:00 PM EDT Office Visit Podiatry, [address] [address] Sydney Castelan, DPM 400 [facility] [address] 05/05/2024 2:00 PM EDT Office Visit Cardiology, [address] [address] Stephanie Ramos PA-C [facility] [address] 05/14/2024 1:20 PM EDT Office Visit Gastroenterology, [facility] [address] [facility] [phone] Cindy Elena, DO [address] [place] [address] 06/17/2024 11:00 AM EST Telemedicine Hematology/Oncology, [address] [address] Billy Basurto MD 400 [place] [phone] 08/18/2024 3:40 PM EST Office Visit Otolaryngology, [address] Loz[address] [place] 27 [place] [address] Hema Hercules PA-C 27 [place] [address] 08/26/2024 5:40 PM EST Office Visit Family [facility] [place], [place] 21 [place] [phone] Amor Pate MD [address] [place] [address] 09/10/2024 12:50 PM EST Office Visit Dermatology, Adwoa GreenFranc[place] [address] [place] [address] [place] [address] Marilyn Ozuna PA-C [address] [place] [address] 12/31/2024 1:00 PM EDT Cardiac Studies Cardiology, [place] 400 [facility] [place] [address] [facility] 400 [facility] [place] [address] 02/04/2025 12:00 PM EDT Home Visit Care at Home [address] [place] [address] Carol Mathew PA-C [address] [place] [address] Scheduled Procedures Name Priority Associated Diagnoses Date/Ti [...] Additional history exists CKD PHOS USE SMARTSET 21975 08/22/202408/05, 08/20/2023, 11/07/2022, Additional history exists Albumin/Creatinine Ratio 12/05/2024 12/06/2023, 03/06 Adult Wellness Visit 02/03/2025 02/04/2024, 02/29/20 23 Depression Screening 02/03/2025 02/04/2024, 12/10/19 24 CKD HGB USE SMARTSET 87142 03/02/202503/02, 03/02/2024, 02/17/2024, Additional history exists DXA Scan 04/22/2025 04/22/2023, 04/05, 12/25/2018, Additional history exists Pneumococcal Vaccine: 65+ Years Completed 02/01/2016, 10/27/2002 VITAMIN D LEVEL ONCE IN A LIFETIME-USE SMARTSET# 83534 Completed 09/16/2023, 10/20/2019, 03/11/2012, Additional history exists [...] this encounter Medical Devices Implanted Type Area Optical Instrument Repairer Device Identifier Shelf Expiration Date Model / Serial / Lot Implant System, Trim-It Drill Pin [id number]" X 4" Implanted:Qty: 1 on 10/10/2017 by Sydney Castelan DPM at OR [facility] Right: Toe 04/04/2019 AR-4152DS / / [id number] Medtronic Attesta Surescan Pacemaker Implanted:Qty: 1 on 06/09/2020 by Chanel Lin DO at OR [facility] Left: Chest 08/01/2021 ATSR01 / [id number] / Nail [id number] Left [id number] - [id number] Implanted:Qty: 1 on 01/20/2021 by Alli Townsend MD at OR [facility] Left: Hip MILAN : TRAUMA 12/03/2023 3525-034 0S / / [id number] Screw Lag 10.5x95mm - [id number] Implanted:Qty: 1 on 01/20/2021 by Alli Townsend MD at OR [facility] Left: Hip MILAN : TRAUMA 11/02/2025 3060-009 5S / / [id number] Screw T2 Alpha Lock 5x47.5mm - [id number] Implanted:Qty: 1 on 01/20/2021 by Alli Townsend MD at OR [facility] Left: Hip MILAN : TRAUMA 05/04/2029 2360-504 7S / / [id number] documented as of this encounter Advance Directives Documents on File Type Date Recorded Patient Medical Imaging Director Expl anation POLST 07/15/2023 [place] OR [facility] FOR [facility]-SUSTAINING [...] First Alternate Health Care Agent Care Teams Flatcar Whacker Relationship Specialty Start Date End Date Amor Pate MD 21 [place] [phone] PCP - General Family Medicine 12/06/22 documented as of this encounter
--- OUTSIDE RECORDS SUMMARY | 2024-08-18 16:26 | External Medical Summary | Summary of Care ---
Author Name Unknown Organization [facility] Address [address] [place] [address] Phone [phone] Care Team Providers Care Pipe Fitter Maintenance Name Role Phone Amor Pate MD Primary Care Provider [phone] Reason for Visit * Reason Onset Date Comments Advice 03/16/2024 Home Health PT r eferral Encounter Details Date Type Department Care Team (Late st Contact Info) Description 03/16/2024 Telephone [facility] [address] [place] [address] Amor Pate MD [address] [place] [address] Advice (Home Health PT referral [...] in the morning. 30 Tablet 07/14/2023 Active Szhuwfr-Htqsnxauj-O itamin D ER 600-40-500 MG-MG-UNIT Tablet Extended [...] morning. 45 Tablet 3 12/25/2023 Active Nystatin 006279 UNIT/GM External CreamIndications:Ca ndidal intertrigo Apply topically [...] multicystic lesion of the pancreas CEA, FLUID 60326.0 ng/mL Final COMMENT Final The reference range [...] patient does not have a Power of Retirement Assistant or Advanced Directives in place at this [...] mRNA, LNP-s, No Pre serve, 2-Dose Series (eVendor Check) 10/26/2020,09/30/2020 Pneumococcal Conjugate Vacc, 13 Valent (Prevnar) [...] encounter Miscellaneous Notes * Telephone Encounter - Carol Guy OSA [...] calling stating that she was notified by [facility] agency that she was discharged from [...] 8:00 AM EDT Laboratory Lab Mobile Phlebotomy [facility] 400 [facility] [address] [facility], [facility] Home Draw 400 [facility] [address] 03/26/2024 6:00 AM EDT Anticoagulation Centralized Clinical Pharmacy Services, [address] [place] [address] Ccps, [address] [place] [address] 04/01/2024 3:00 PM EDT Telemedicine [facility], [facility] 132 [facility] [address] Kayla Thompson CRNP 132 [facility] [place] [address] Carol Blevins, Community Health Dowel Inspector [address] [place] [address] 04/10/2024 11:30 AM EDT Scheduled Telephone [facility], [facility] [address] [facility] [place] [address] Cyndie Hilton, RDN [address] [facility] [place] [address] 04/20/2024 4:00 PM EDT Home Visit [facility], [facility] 132 [facility] [place] [address] Allison Young, RN 132 [facility] [address] 04/21/2024 1:00 PM EDT Office Visit Podiatry, [facility] 400 [facility] [place] [address] Sydney Castelan, [place] 400 [facility] [address] 05/05/2024 2:00 PM EDT Office Visit Cardiology, [place] [address] [place] [address] Stephanie Ramos PA-C 400 [facility] [place] [address] 05/14/2024 1:20 PM EDT [facility] [address] [place] [phone] Cindy Elena, DO [address] [place] [address] 06/17/2024 11:00 AM EST Telemedicine Hematology/Oncology, [facility] 400 [facility] [place] [address] Billy Basurto MD 400 [facility] [place] [phone] 08/18/2024 3:40 PM EST Office Visit Otolaryngology, Francisco [place] 27 [place] [address] Hema Hercules PA-C [address] ShethwFR[place] cheng [address] 08/26/2024 5:40 PM EST Office Visit Family [facility], [place] 21 [place] [phone] Amor Pate MD 21 [place] [address] 09/10/2024 12:50 PM EST Office Visit Dermatology, [place] [address] [place] [address] Marilyn Ozuna PA-C [address] [place] [address] 12/31/2024 1:00 PM EDT Cardiac Studies Cardiology, [place] 400 [facility] [place] [address] [place] 400 [facility] [place] [address] 02/04/2025 12:00 PM EDT Home Visit Care at Home [address] [place], [place] [phone] Carol Mathew PA-C [address] [facility] [place] [phone] Scheduled Procedures Name Priority Associated Diagnoses Date/Ti [...] Additional history exists CKD PHOS USE SMARTSET 73629 08/22/202408/05, 08/20/2023, 11/07/2022, Additional history exists Albumin/Creatinine Ratio 12/05/2024 12/06/2023, 03/06 Adult Wellness Visit 02/03/2025 02/04/2024, 02/29/20 23 Depression Screening 02/03/2025 02/04/2024, 12/10/19 24 CKD HGB USE SMARTSET 91035 03/02/202503/02, 03/02/2024, 02/17/2024, Additional history exists DXA Scan 04/22/2025 04/22/2023, 04/05, 12/25/2018, Additional history exists Pneumococcal Vaccine: 65+ Years Completed 02/01/2016, 10/27/2002 VITAMIN D LEVEL ONCE IN A LIFETIME-USE SMARTSET# 39944 Completed 09/16/2023, 10/20/2019, 03/11/2012, Additional history exists [...] this encounter Medical Devices Implanted Type Area Microfilmer Device Identifier Shelf Expiration Date Model / Serial / Lot Implant System, Trim-It Drill Pin [id number]" X 4" Implanted:Qty: 1 on 10/10/2017 by Sydney Castelan DPM at OR [facility] Right: Toe 04/04/2019 AR-4152DS / / [id number] Medtronic Attesta Surescan Pacemaker Implanted:Qty: 1 on 06/09/2020 by Chanel Lin DO at OR [facility] Left: Chest 08/01/2021 ATSR01 / [id number] / Nail Gamma3 Left [id number] - [id number] Implanted:Qty: 1 on 01/20/2021 by Alli Townsend MD at OR [facility] Left: Hip MILAN : TRAUMA 12/03/2023 3525-034 0S / / [id number] Screw Lag 10.5x95mm - [id number] Implanted:Qty: 1 on 01/20/2021 by Alli Townsend MD at OR [facility] Left: Hip MILAN : TRAUMA 11/02/2025 3060-009 5S / / [id number] Screw T2 Alpha Lock 5x47.5mm - [id number] Implanted:Qty: 1 on 01/20/2021 by Alli Townsend MD at OR [facility] Left: Hip MILAN : TRAUMA 05/04/2029 2360-504 7S / / [id number] documented as of this encounter Advance Directives Documents on File Type Date Recorded Patient Professor Of French Expl anation POLST 07/15/2023 [place] OR [facility] FOR LIFE-SUSTAINING TREATMENT [...] First Alternate Health Care Agent Care Teams Pipe Fitter Maintenance Relationship Specialty Start Date End Date Amor Pate MD 21 [place] [phone] PCP - General Family Medicine 12/06/22 documented as of this encounter
--- OUTSIDE RECORDS SUMMARY | 2024-08-18 16:26 | External Medical Summary ---
Author Name Unknown Address Unknown Organization K01:LABORATORY [facility] - 100 [facility] [address] Laboratory Report Ordering Provider Test Date Status [place] 03/23/2024 16:21:47 Final Observation Date Value Abnormality Reference (Units ) Status Color of Urine by Auto 03/23/2024 16:21:47 Yellow Colorless, Light Yellow, Yellow, Dark Yellow Final Clarity, Urine 03/23/2024 16:21:47 Clear Clear Final Glucose [Mass/volume] in Urine by Automated test strip 03/23/2024 16:21:47 Negative Negative (mg/dL) Final Bilirubin.total [Presence] in Urine by Automated test strip 03/23/2024 16:21:47 Negative Negative Final Ketones [Mass/volume] in Urine by Automated test strip 03/23/2024 16:21:47 Negative Negative (mg/dL) Final Specific gravity, Urine 03/23/2024 16:21:47 1.028 1.003-1.030 Final Hemoglobin [Presence] in Urine by Automated test strip 03/23/2024 16:21:47 Negative Negative Final pH, Urine 03/23/2024 16:21:47 6.0 5.0-7.5 (Units) Final Protein [Mass/volume] in Urine by Automated test strip 03/23/2024 16:21:47 Trace Abnormal Negative (mg/dL) Final Urobilinogen [Mass/volume] in Urine by Automated test strip 03/23/2024 16:21:47 Normal Normal (mg/dL) Final Nitrite [Presence] in Urine by Automated test strip 03/23/2024 16:21:47 Negative Negative Final Leukocyte esterase [Presence] in Urine by Automated test strip 03/23/2024 16:21:47 Moderate Abnormal Negative Final RBC, Urine 03/23/2024 16:21:47 0-2 0-2 (/HPF) Final WBC, Urine 03/23/2024 16:21:47 10-19 Abnormal 0-2 (/HPF) Final Bacteria [#/area] in Urine sediment by Microscopy high power field 03/23/2024 16:21:47 26-50 Abnormal 0-25 (/HPF) Final Performing Location LABORATORY [facility] - [address] [facility] [address]
--- OUTSIDE RECORDS SUMMARY | 2024-08-18 16:26 | External Medical Summary | Summary of Care ---
Author Name Unknown Organization [facility] Address [address] [place] [address] Phone [phone] Care Team Providers Care Plant Clerk Name Role Phone Amor Pate MD Primary Care Provider [phone] Encounter Details Date Type Department Care Team (Late st Contact Info) Description 03/22/2024 Result Scan Unspecified Department Chanel Lin Erica, DO [address] [place] [address] <No scans attached> Allergies No known active allergiesdocumented as of this encounter (statuses as of 03/22/2024) Medications Medication Sig Dispensed Refills Start Date [...] in the morning. 30 Tablet 07/14/2023 Active Vzwdozt-Zrkjomepd-Rm tamin D ER 600-40-500 MG-MG-UNIT Tablet Extended [...] mouth daily. 90 Tablet 3 11/19/2023 Active [facility] Wound &Burn Dressing External Paste Apply [...] morning. 45 Tablet 3 12/25/2023 Active Nystatin 711451 UNIT/GM External CreamIndications:Can didal intertrigo Apply topically [...] as of this encounter (statuses as of 03/22/2024) Active Problems Problem Noted Date Diagnosed Date [...] multicystic lesion of the pancreas CEA, FLUID 81977.0 ng/mL Final COMMENT Final The reference range [...] 06/18/2013 Last Assessment & Plan: S/p pacemaker residential current use of anticoagulant therapy 0 08/28/2010 [...] does not have a Power of Security Compliance Specialist or Advanced Directives in place at [...] as of this encounter (statuses as of 03/22/2024) Resolved Problems Problem Noted Date Diagnosed Date [...] as of this encounter (statuses as of 03/22/2024) Immunizations Name Administration Dates Next Due COVID-19 [...] EDT Laboratory Lab Mobile Phlebotomy GL [address] [place] [address] [facility], [facility] Mobile Home Draw [address] [place] [address] 03/26/2024 6:00 AM EDT Anticoagulation Centralized Clinical Pharmacy Services, Derrek Denton [address] [place] [address] [place] [address] [place] [address] 04/01/2024 3:00 PM EDT [facility] 132 [facility] [place] [address] Kayla Thompson CRNP [facility] [place] [address] Carol Blevins, Community Health Canopy Stringer [address] [place] [address] 04/10/2024 11:30 AM EDT Scheduled Telephone [facility], [facility] [address] [facility] [place] [address] Cyndie Hilton, RDN 1000 [facility] [place] [address] 04/20/2024 4:00 PM EDT [facility], [facility] [place] [facility] [place] [address] Allison Young RN 132 [facility] [place] [address] 04/21/2024 1:00 PM EDT Office Visit Podiatry, [facility] [address] [place] [address] Sydney Castelan DPM [address] [place] [address] 05/05/2024 2:00 PM EDT Office Visit Cardiology, [place] 400 [facility] [address] Stephanie Ramos PA-C [address] [place] [address] 05/14/2024 1:20 PM EDT Office Visit Gastroenterology, [facility] [address] [place] [phone] Cindy Elena, [address] [place] [address] 06/17/2024 11:00 AM EST Telemedicine Hematology/Oncology, [facility] 400 [facility] [place] [address] Billy Basurto MD 400 [facility] [place] [address] 08/18/2024 3:40 PM EST Office Visit Otolaryngology, [place] [address] [place] [address] Hema Hercules PA-C [address] [place] [address] 08/26/2024 5:40 PM EST Office Visit Family Psychiatric, [place] 21 [facility] [place] [phone] Amor Pate MD 21 [facility] [place] [address] 09/10/2024 12:50 PM EST Office Visit Dermatology, [place] [address] [place] [address] Marilyn Ozuna PA-C [address] [place] [address] 12/31/2024 1:00 PM EDT Cardiac Studies Cardiology, [place] 400 [facility] [place] [address] [place], Pacer [facility] 400 [facility] [place] [address] 02/04/2025 12:00 PM EDT Home Visit Care at Home [address] [facility] [place] [phone] Carol Mathew PA-C [address] [place] [address] Scheduled Procedures Name Priority Associated Diagnoses Date/Ti [...] Additional history exists CKD PHOS USE SMARTSET 33427 08/22/202408/05, 08/20/2023, 11/07/2022, Additional history exists Albumin/Creatinine Ratio 12/05/2024 12/06/2023, 03/06 Adult Wellness Visit 02/03/2025 02/04/2024, 02/29/20 23 Depression Screening 02/03/2025 02/04/2024, 12/10/19 24 CKD HGB USE SMARTSET 06310 03/02/202503/02, 03/02/2024, 02/17/2024, Additional history exists DXA Scan 04/22/2025 04/22/2023, 04/05, 12/25/2018, Additional history exists Pneumococcal Vaccine: 65+ Years Completed 02/01/2016, 10/27/2002 VITAMIN D LEVEL ONCE IN A LIFETIME-USE SMARTSET# 45408 Completed 09/16/2023, 10/20/2019, 03/11/2012, Additional history exists [...] this encounter Medical Devices Implanted Type Area Biofuels Research Scientist Device Identifier Shelf Expiration Date Model / Serial / Lot Implant System, Trim-It Drill Pin [id number](.078" X 4" Implanted:Qty: 1 on 10/10/2017 by Sydney Castelan DPM at OR [facility] Right: Toe 04/04/2019 AR-4152DS / / [id number] Medtronic Attesta Surescan Pacemaker Implanted:Qty: 1 on 06/09/2020 by Chanel Lin DO at OR [facility] Left: Chest 08/01/2021 ATSR01 / [id number] / Nail [id number] Left [id number] - [id number] Implanted:Qty: 1 on 01/20/2021 by Alli Townsend MD at OR [facility] Left: Hip MILAN : TRAUMA 12/03/2023 3525-034 0S / / [id number] Screw Lag 10.5x95mm - [id number] Implanted:Qty: 1 on 01/20/2021 by Alli Townsend MD at OR [facility] Left: Hip MILAN : TRAUMA 11/02/2025 3060-009 5S / / [id number] Screw T2 Alpha Lock 5x47.5mm - [id number] Implanted:Qty: 1 on 01/20/2021 by Alli Townsend MD at OR [facility] Left: Hip MILAN : TRAUMA 05/04/2029 2360-504 7S / / [id number] documented as of this encounter Procedures Procedure Name Priority Date/Time Associated Diagnosis Comments CARDIOLOGY SCANNED RESULT 03/22/2024 documented in this encounter Results * CARDIOLOGY SCANNED RESULT (03/22/2024) 03/22/2024 Chanel Lin DO OTHER documented in this encounter Advance Directives Documents on File Type Date Recorded Patient Childcare Center Director Raman OLIVO 07/15/2023 [place] [facility] FOR LIFE-SUSTAINING [...] First Alternate Health Care Agent Care Teams Plant Clerk Relationship Specialty Start Date End Date Amor Pate MD 21 [place] [address] PCP - General Family Medicine 12/06/22 documented as of this encounter
--- OUTSIDE RECORDS SUMMARY | 2024-08-18 16:26 | External Medical Summary | Summary of Care ---
Author Name Unknown Organization [facility] Address [address] [place] [address] Phone [phone] Care Team Providers Care Oracle Reports Developer Name Role Phone Amor Pate MD Primary Care Provider [phone] Reason for Visit * Reason Onset Date Comments Advice 03/16/2024 Home Health PT r eferral Encounter Details Date Type Department Care Team (Late st Contact Info) Description 03/16/2024 Telephone [facility] [address] [place] [address] Amor Pate MD [address] [place] [address] Advice (Home Health PT referral [...] in the morning. 30 Tablet 07/14/2023 Active Aacmeev-Pjqbnocfj-Y itamin D ER 600-40-500 MG-MG-UNIT Tablet Extended [...] morning. 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, [facility] Mobile Home Draw 400 [facility] [address] 03/26/2024 6:00 AM EDT Anticoagulation Centralized Clinical Pharmacy Services, [address] [place] [address] Ccps, [address] [place] [address] 04/01/2024 3:00 PM EDT Telemedicine [facility], [facility] 132 [facility] [address] Kayla Thompson CRNP 132 [facility] [place] [address] Carol Blevins, Community Health Cook Larder [address] [place] [address] 04/10/2024 11:30 AM EDT Scheduled Telephone [facility], [facility] [address] [facility] [place] [address] Cyndie Hilton, RDN [address] [facility] [place] SIFUENT[place] [address] 04/20/2024 4:00 PM EDT Home Visit [facility], [facility] 132 [facility] [place] [address] Allison Young, RN 132 [facility] [address] 04/21/2024 1:00 PM EDT Office Visit Podiatry, [facility] 400 [facility] [place] [address] Sydney Castelan, [place] 400 [facility] [address] 05/05/2024 2:00 PM EDT Office Visit Cardiology, [place] [address] [place] [address] Stephanie Ramos PA-C 400 [facility] [place] [address] 05/14/2024 1:20 PM EDT [facility] [address] [place] [phone] Cindy Elena, DO [address] [place] [address] 06/17/2024 11:00 AM EST Telemedicine Hematology/Oncology, [facility] 400 [facility] [place] [address] Billy Basurto MD 400 [facility] [place] [phone] 08/18/2024 3:40 PM EST Office Visit Otolaryngology, [place] 27 [place] [address] Hema Hercules PA-C 27 [address] ShethwFR[place] cheng [address] 08/26/2024 5:40 PM EST Office Visit Family [facility], [place] 21 [place] [phone] Amor Pate MD 21 [place] [address] 09/10/2024 12:50 PM EST Office Visit Dermatology, [place] [address] [place] [address] Marilyn Ozuna PA-C [address] [place] [address] 12/31/2024 1:00 PM EDT Cardiac Studies Cardiology, [place] 400 [facility] [place] [address] [place], [facility] 400 [facility] [place] [address] 02/04/2025 12:00 PM EDT Home Visit Care at Home [address] [place], [place] [phone] Carol Mathew PA-C 100 N [facility] [place] [phone] Scheduled Procedures Name Priority Associated Diagnoses Date/Ti [...] Additional history exists CKD PHOS USE SMARTSET 19337 08/22/202408/05, 08/20/2023, 11/07/2022, Additional history exists Albumin/Creatinine Ratio 12/05/2024 12/06/2023, 03/06 Adult Wellness Visit 02/03/2025 02/04/2024, 02/29/20 23 Depression Screening 02/03/2025 02/04/2024, 12/10/19 24 CKD HGB USE SMARTSET 55680 03/02/202503/02, 03/02/2024, 02/17/2024, Additional history exists DXA Scan 04/22/2025 04/22/2023, 04/05, 12/25/2018, Additional history exists Pneumococcal Vaccine: 65+ Years Completed 02/01/2016, 10/27/2002 VITAMIN D LEVEL ONCE IN A LIFETIME-USE SMARTSET# 81512 Completed 09/16/2023, 10/20/2019, 03/11/2012, Additional history exists [...] this encounter Medical Devices Implanted Type Area Registered Nurse Device Identifier Shelf Expiration Date Model / Serial / Lot Implant System, Trim-It Drill Pin [id number](.078" X 4" Implanted:Qty: 1 on 10/10/2017 by Sydney Castelan DPM at OR [facility] Right: Toe 04/04/2019 AR-4152DS / / [id number] Medtronic Attesta Surescan Pacemaker Implanted:Qty: 1 on 06/09/2020 by Chanel Lin DO at OR [facility] Left: Chest 08/01/2021 ATSR01 / [id number] / Nail Gamma3 Left [id number] - [id number] Implanted:Qty: 1 on 01/20/2021 by Alli Townsend MD at OR [facility] Left: Hip MILAN : TRAUMA 12/03/2023 3525-034 0S / / [id number] Screw Lag 10.5x95mm - [id number] Implanted:Qty: 1 on 01/20/2021 by Alli Townsend MD at OR [facility] Left: Hip MILAN : TRAUMA 11/02/2025 3060-009 5S / / [id number] Screw T2 Alpha Lock 5x47.5mm - [id number] Implanted:Qty: 1 on 01/20/2021 by Alli Townsend MD at OR [facility] Left: Hip MILAN : TRAUMA 05/04/2029 2360-504 7S / / [id number] documented as of this encounter Advance Directives Documents on File Type Date Recorded Patient Editor Farm Journal Expl anation POLST 07/15/2023 [place] OR [facility] FOR LIFE-SUSTAINING [...] First Alternate Health Care Agent Care Teams Oracle Reports Developer Relationship Specialty Start Date End Date Amor Pate MD 21 [place] [phone] PCP - General Family Medicine 12/06/22 documented as of this encounter
--- OUTSIDE RECORDS SUMMARY | 2024-08-18 16:26 | External Medical Summary | Summary of Care ---
Author Name Unknown Organization [facility] Address [address] [place] [address] Phone [phone] Care Team Providers Care Superintendent Maintenance Name Role Phone Amor Pate MD Primary Care Provider [phone] Reason for Visit * Reason Onset Date Comments [facility]: Acute 03/23/2024 Encounter Details Date Type Department Care Team (Late st Contact Info) Description 03/23/2024 Telephone [facility], [facility] [address] [place] [address] Chanel Castro LPN [address] [place] [address] [facility]: Acute Allergies No known [...] in the morning. 30 Tablet 07/14/2023 Active Yttesle-Vdgehclnh-Dp tamin D ER 600-40-500 MG-MG-UNIT Tablet Extended [...] morning. 45 Tablet 3 12/25/2023 Active Nystatin 575254 UNIT/GM External CreamIndications:Can didal intertrigo Apply topically [...] multicystic lesion of the pancreas CEA, FLUID 07801.0 ng/mL Final COMMENT Final The reference range [...] patient does not have a Power of Java Tech Lead or Advanced Directives in place at this [...] Miscellaneous Notes * Telephone Encounter - Chanel Castro LPN - 03/23/2024 2:02 PM EDT Received call from pt reporting she is having weakness again and this is her typical symptom of UTI. She finished her 5 day course of Mcrobid on 03/18 and today has noted the weakness again. Denies fever, burning, urgency, frequency, foul odor. Does not have a specimen kit on hand. CHW appt for collection/supply drop off . documented in this encounter Plan of Treatment Upcoming Encounters Date Type Department Care Team (Late st Contact Info) Description 03/25/2024 8:00 AM EDT Laboratory Lab Mobile Phlebotomy GL [address] [place] [address] Gl, Gml Mobile Home Draw [address] [place] [address] 03/26/2024 6:00 AM EDT Anticoagulation Centralized Clinical Pharmacy Services, Derrek [address] [place] [address] Ccps, [address] [place] [address] 04/01/2024 3:00 PM EDT Telemedicine [facility], [facility] 132 [facility] [address] Kayla Thompson CRNP 132 [place] [address] Carol Blevins, Community Health Dispatcher Radio [address] [place] [address] 04/10/2024 11:30 AM EDT Scheduled Telephone [facility], [facility] 1000 [address] [facility] [place]ifuentes [address] Cyndie Hilton, RDN [address] [facility] [place] SIFUENTES [address] 04/20/2024 4:00 PM EDT Home Visit [facility], [facility] 132 [facility] [place] [address] Allison Young, RN 132 [place] [address] 04/29/2024 2:40 PM EDT Office Visit Podiatry, [facility] [address] [place] [address] Sydney Castelan DPM 400 [place] [address] 05/05/2024 2:00 PM EDT Office Visit Cardiology, [place] 400 [place] [address] Stephanie Ramos PA-C 400 [facility] [place] [address] 05/14/2024 1:20 PM EDT Office Visit Gastroenterology, [facility] [address] [place] [phone] Cindy Elena, DO [address] [place] [address] 06/17/2024 11:00 AM EST Telemedicine Hematology/Oncology, [facility] 400 [facility] [address] Billy Basurto MD 400 [place] [phone] 08/18/2024 3:40 PM EST Office Visit Otolaryngology, Adwoa Lozada [place] [address] [place]FR[place] cheng [address] Hema Hercules PA-C [address] [place] [address] 08/26/2024 5:40 PM EST Office Visit Family Practice, [place] 21 [place] [phone] Amor Pate MD 21 [facility] [address] 09/10/2024 12:50 PM EST Office Visit Dermatology, [place] [address] [place] [address] Marilyn Ozuna PA-C [address] [place] [address] 12/31/2024 1:00 PM EDT Cardiac Studies Cardiology, [place] [address] [place] [address] [place], [facility]er [facility] [address] [facility] [place] [address] 02/04/2025 12:00 PM EDT Home Visit Care at Home [address] [place], [place] [phone] Carol Mathew PA-C [address] [place], [place] [phone] Scheduled Orders Name Type Priority Associated Diagnoses Orde r Schedule URINALYSIS, REFLEX TO MICROSCOPIC Lab Routine Cardiac pacemaker in situ Recurrent cystitis Expected: 03/23/2024, Expires: 03/23/2025 Scheduled Procedures Name Priority Associated Diagnoses Date/Ti [...] Additional history exists CKD PHOS USE SMARTSET 12244 08/22/202408/05, 08/20/2023, 11/07/2022, Additional history exists Albumin/Creatinine Ratio 12/05/2024 12/06/2023, 03/06 Adult Wellness Visit 02/03/2025 02/04/2024, 02/29/20 23 Depression Screening 02/03/2025 02/04/2024, 12/10/19 24 CKD HGB USE SMARTSET 87560 03/02/202503/02, 03/02/2024, 02/17/2024, Additional history exists DXA Scan 04/22/2025 04/22/2023, 04/05, 12/25/2018, Additional history exists Pneumococcal Vaccine: 65+ Years Completed 02/01/2016, 10/27/2002 VITAMIN D LEVEL ONCE IN A LIFETIME-USE SMARTSET# 19183 Completed 09/16/2023, 10/20/2019, 03/11/2012, Additional history exists [...] encounter Medical Devices Implanted Type Area Machine Hoop Maker Helper Device Identifier Shelf Expiration Date Model / Serial / Lot Implant System, Trim-It Drill Pin [id number](.078" X 4" Implanted:Qty: 1 on 10/10/2017 by Sydney Castelan DPM at OR [facility] Right: Toe 04/04/2019 AR-4152DS / / [id number] Medtronic Attesta Surescan Pacemaker Implanted:Qty: 1 on 06/09/2020 by Chanel Lin DO at OR [facility] Left: Chest 08/01/2021 ATSR01 / [id number] / Nail Gamma3 Left [id number] - [id number] Implanted:Qty: 1 on 01/20/2021 by Alli Townsend MD at OR [facility] Left: Hip MILAN : TRAUMA 12/03/2023 3525-034 0S / / [id number] Screw Lag 10.5x95mm - [id number] Implanted:Qty: 1 on 01/20/2021 by Alli Townsend MD at OR [facility] Left: Hip MILAN : TRAUMA 11/02/2025 3060-009 5S / / [id number] Screw T2 Alpha Lock 5x47.5mm - [id number] Implanted:Qty: 1 on 01/20/2021 by Alli Townsend MD at OR [facility] Left: Hip MILAN : TRAUMA 05/04/2029 2360-504 7S / / [id number] documented as of this encounter Visit Diagnoses Diagnosis Recurrent cystitis- Primary Cystitis, unspecified Cardiac pacemaker in situ documented in this encounter Advance Directives Documents on File Type Date Recorded Patient Inclusion Intern Expl anation POLST 07/15/2023 [place] [facility] AT [...] First Alternate Health Care Agent Care Teams Superintendent Maintenance Relationship Specialty Start Date End Date Amor Pate MD 21 [place] [phone] PCP - General Family Medicine 12/06/22 documented as of this encounter
--- OUTSIDE RECORDS SUMMARY | 2024-08-18 16:26 | External Medical Summary | Summary of Care ---
Author Name Unknown Organization [facility] Address [address] [place] [address] Phone [phone] Care Team Providers Care Kitchen Operator Name Role Phone Amor Pate MD Primary Care Provider [phone] [phone] Reason for Visit * Reason Onset Date Comments [facility]: Acute 03/23/2024 Encounter Details Date Type Department Care Team (Late st Contact Info) Description 03/23/2024 Telephone [facility], [facility] [address] [place] [address] Chanel Castro LPN [address] [place] [address] [facility]: Acute Allergies No known [...] in the morning. 30 Tablet 07/14/2023 Active Gkvhgkr-Wmurjluww-Xx tamin D ER 600-40-500 MG-MG-UNIT Tablet Extended [...] morning. 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 * Telephone Encounter - Chanel Castro LPN [...] Mobile Phlebotomy [facility] [address] [facility], [facility] Mobile Home Draw 400 [facility] [place] [address] 03/26/2024 6:00 AM EDT Anticoagulation Centralized Clinical Pharmacy Services, Derrek Denton [address] [place] [address] [place] [address] [place] [address] 04/01/2024 3:00 PM EDT Telemedicine [facility] [place], [facility] [address] [place] [address] Kayla Thompson CRNP [address] [place] [address] Carol Blevins, Community Health Community Engagement Leader [address] [place] [address] 04/10/2024 11:30 AM EDT Scheduled Telephone [facility], [facility] [address] [facility] [place] S[place] [address] Cyndie Hilton, LATIA [address] [facility] [place] SIFUENT[place] [address] 04/20/2024 4:00 PM EDT Home Visit [facility] 132 [facility] [place] [address] Allison Young RN 132 [facility] [place] [address] 04/29/2024 2:40 PM EDT Office Visit Podiatry, [facility] 400 [place] [address] Sydney Castelan, DP 400 [place] [address] 05/05/2024 2:00 PM EDT Office Visit Cardiology, [place] 400 [place] [address] Stephanie Ramos PA-C [address] [place] [address] 05/14/2024 1:20 PM EDT Office Visit Gastroenterology, [facility] 310 [facility] [place] [phone] Cindy Elena DO 132 [facility] [address] 06/17/2024 11:00 AM EST Telemedicine Hematology/Oncology, [facility] 400 [facility] [address] Billy Basurto MD 400 [place] [phone] 08/18/2024 3:40 PM EST Office [facility] [address] [place] [address] Hema Hercules PA-C [address] [place] [address] 08/26/2024 5:40 PM EST Office Visit Family [facility], [place] [address] [place] [phone] Amor Pate MD [address] ShethwFR[place] cheng [address] 09/10/2024 12:50 PM EST Office Visit Dermatology, [place] [address]asmany 140 [place] [address] Marilyn Ozuna PA-C [address] [place] Alexandre [address] 12/31/2024 1:00 PM EDT Cardiac Studies Cardiology, [place] 400 [facility] [place] [address] [place], [facility] 400 [facility] [address] 02/04/2025 12:00 PM EDT Home Visit Care at Home [address] [place] [address] Carol Mathew PA-C [address] [place], [place] [id number] Pending Results Name Type Priority Associated Diagnoses Date /Time URINALYSIS, REFLEX TO MICROSCOPIC Lab Routine Cardiac pacemaker in situ Recurrent cystitis 03/23/2024 4:21 PM EDT Scheduled Orders Name Type Priority Associated [...] Additional history exists CKD PHOS USE SMARTSET 82380 08/22/202408/05, 08/20/2023, 11/07/2022, Additional history exists Albumin/Creatinine Ratio 12/05/2024 12/06/2023, 03/06 Adult Wellness Visit 02/03/2025 02/04/2024, 02/29/20 23 Depression Screening 02/03/2025 02/04/2024, 12/10/19 24 CKD HGB USE SMARTSET 65745 03/02/202503/02, 03/02/2024, 02/17/2024, Additional history exists DXA Scan 04/22/2025 04/22/2023, 04/05, 12/25/2018, Additional history exists Pneumococcal Vaccine: 65+ Years Completed 02/01/2016, 10/27/2002 VITAMIN D LEVEL ONCE IN A LIFETIME-USE SMARTSET# 91833 Completed 09/16/2023, 10/20/2019, 03/11/2012, Additional history exists [...] this encounter Medical Devices Implanted Type Area Nurse Emergency Device Identifier Shelf Expiration Date Model / Serial / Lot Implant System, Trim-It Drill Pin [id number](.078" X 4" Implanted:Qty: 1 on 10/10/2017 by Sydney Castelan DPM at OR [facility] Right: Toe 04/04/2019 AR-4152DS / / [id number] Medtronic Attesta Surescan Pacemaker Implanted:Qty: 1 on 06/09/2020 by Chanel Lin DO at OR [facility] Left: Chest 08/01/2021 ATSR01 / [id number] / Nail [id number] Left [id number] - [id number] Implanted:Qty: 1 on 01/20/2021 by Alli Townsend MD at OR [facility] Left: Hip MILAN : TRAUMA 12/03/2023 3525-034 0S / / [id number] Screw Lag 10.5x95mm - [id number] Implanted:Qty: 1 on 01/20/2021 by Alli Townsend MD at OR [facility] Left: Hip MILAN : TRAUMA 11/02/2025 3060-009 5S / / [id number] Screw T2 Alpha Lock 5x47.5mm - [id number] Implanted:Qty: 1 on 01/20/2021 by Alli Townsend MD at OR [facility] Left: Hip MILAN : TRAUMA 05/04/2029 2360-504 7S / / [id number] documented as of this encounter Visit Diagnoses Diagnosis Recurrent cystitis- Primary Cystitis, unspecified Cardiac pacemaker in situ documented in this encounter Advance Directives Documents on File Type Date Recorded Patient Prekindergarten Teacher Expl anation POLST 07/15/2023 [place] [facility] [...] First Alternate Health Care Agent Care Teams Kitchen Operator Relationship Specialty Start Date End Date Amor Pate MD 21 [place] [address] PCP - General Family Medicine 12/06/22 documented as of this encounter
--- OUTSIDE RECORDS SUMMARY | 2024-08-18 16:27 | External Medical Summary | Summary of Care ---
Author Name Unknown Organization [facility] Address [address] [place] [address] Phone [phone] Care Team Providers Care Football Coach Name Role Phone Amor Pate MD Primary Care Provider [phone] Reason for Visit * Reason Onset Date Comments Advice 03/16/2024 Home Health PT r eferral Encounter Details Date Type Department Care Team (Late st Contact Info) Description 03/16/2024 Telephone [facility] [address] [place] [address] Amor Pate MD [address] [place] [address] Advice (Home Health PT referral ) Allergies No known active allergiesdocumented as of this encounter (statuses as of 03/16/2024) Medications Medication Sig Dispensed Refills Start Date [...] in the morning. 30 Tablet 07/14/2023 Active Lgaejpw-Yhnzmuaxz-Y itamin D ER 600-40-500 MG-MG-UNIT Tablet Extended [...] morning. 45 Tablet 3 12/25/2023 Active Nystatin 519709 UNIT/GM External CreamIndications:Ca ndidal intertrigo Apply topically [...] not improving 1 Each 1 01/10/2024 Active Nitrofurantoin Monohyd Macro 100 MG Oral Capsule (Macrobid)Indicatio ns:Suspected urinary tract infection Take 1 Capsule by mouth in the morning and 1 Capsule before bedtime. Do all this for 5 days. 10 Capsule 03/13/2024 03/18/2024 Active Spironolactone 25 MG Oral Tablet (Aldactone)Indicati ons:Tachy-nikki syndrome (HCC),HTN, goal below 140/90 Take 1 Tablet by mouth once a day on Saturday, Saturday, and Saturday only. 40 Tablet 3 03/16/2024 Active documented as of this encounter (statuses as of 03/16/2024) Active Problems Problem Noted Date Diagnosed Date [...] multicystic lesion of the pancreas CEA, FLUID 95606.0 ng/mL Final COMMENT Final The reference range [...] does not have a Power of Career Agent or Advanced Directives in place at [...] as of this encounter (statuses as of 03/16/2024) Resolved Problems Problem Noted Date Diagnosed Date [...] as of this encounter (statuses as of 03/16/2024) Immunizations Name Administration Dates Next Due COVID-19 mRNA, LNP-s, No Pre serve, 2-Dose Series ([employer]) 10/26/2020,09/30/2020 Pneumococcal Conjugate Vacc, 13 Valent [...] calling stating that she was notified by [facility] that she was discharged from physical therapy [...] EDT Laboratory Lab Mobile Phlebotomy [facility] [address] [place] [address] [facility] Mobile Home Draw [address] [place] [address] 03/26/2024 6:00 AM EDT Anticoagulation Centralized Clinical Pharmacy Services, Derrek Denton [address] [place] [address] [place] Rosenbaum [address] [place] [address] 04/01/2024 3:00 PM EDT Telemedicine [facility] [place], [facility] 132 [facility] [place] [address] Kayla Thompson CRNP 132 [facility] [place] [address] Carol Blevins, Community Health Supervisor [employer] [address] [place] [address] 04/10/2024 11:30 AM EDT Scheduled Telephone [facility], [facility] [address] [facility] [place] [address] Yobani Cyndie Scarlett, RDN [address] [facility] [place] [address] 04/20/2024 4:00 PM EDT Home Visit [facility] 132 [place] [address] Allison Young RN 132 [place] [address] 04/21/2024 1:00 PM EDT Office Visit Podiatry, [address] [address] Sydney Castelan DPM 400 [place] [address] 05/05/2024 2:00 PM EDT Office Visit Cardiology, [address] [address] Stephanie Ramos PA-C 400 [place] [address] 05/14/2024 1:20 PM EDT Office Visit Gastroenterology, [facility] [address] [place] [address] Cindy Elena DO 132 [facility], [place] [address] 06/17/2024 11:00 AM EST Telemedicine Hematology/Oncology, [address] [address] Billy Basurto MD [address] [place] [address] 08/18/2024 3:40 PM EST Office Visit Otolaryngology, [place] [address] [place] [address] Hema Hercules PA-C [address] [place] [address] 08/26/2024 5:40 PM EST Office Visit Family Practice, [place] 21 [place] [phone] Amor Pate MD 21 [place] [address] 09/10/2024 12:50 PM EST Office Visit Dermatology, [place] [address] 140 [place] Singh [address] Marilyn Ozuna PA-C [address] FRNACISCO Alexandre [address] 12/31/2024 1:00 PM EDT Cardiac Studies Cardiology, [place] 400 [facility] [place] [address] [place], [facility] 400 [facility] [place] [address] 02/04/2025 12:00 PM EDT Home Visit Care at Home [address] [place] [address] Carol Mathew PA-C [address] [place] [address] Scheduled Procedures Name Priority Associated Diagnoses Date/Ti [...] Additional history exists CKD PHOS USE SMARTSET 86039 08/22/202408/05, 08/20/2023, 11/07/2022, Additional history exists Albumin/Creatinine Ratio 12/05/2024 12/06/2023, 03/06 Adult Wellness Visit 02/03/2025 02/04/2024, 02/29/20 23 Depression Screening 02/03/2025 02/04/2024, 12/10/19 24 CKD HGB USE SMARTSET 36700 03/02/202503/02, 03/02/2024, 02/17/2024, Additional history exists DXA Scan 04/22/2025 04/22/2023, 04/05, 12/25/2018, Additional history exists Pneumococcal Vaccine: 65+ Years Completed 02/01/2016, 10/27/2002 VITAMIN D LEVEL ONCE IN A LIFETIME-USE SMARTSET# 89584 Completed 09/16/2023, 10/20/2019, 03/11/2012, Additional history exists [...] this encounter Medical Devices Implanted Type Area Federal Agent Device Identifier Shelf Expiration Date Model / Serial / Lot Implant System, Trim-It Drill Pin [id number](.078" X 4" Implanted:Qty: 1 on 10/10/2017 by Sydney Castelan DPM at OR [facility] Right: Toe 04/04/2019 AR-4152DS / / [id number] Medtronic Attesta Surescan Pacemaker Implanted:Qty: 1 on 06/09/2020 by Chanel Lin DO at OR [facility] Left: Chest 08/01/2021 ATSR01 / [id number] / Nail Gamma3 Left [id number] - [id number] Implanted:Qty: 1 on 01/20/2021 by Alli Townsend MD at OR [facility] Left: Hip MILAN : TRAUMA 12/03/2023 3525-034 0S / / [id number] Screw Lag 10.5x95mm - [id number] Implanted:Qty: 1 on 01/20/2021 by Alli Townsend MD at OR [facility] Left: Hip MILAN : TRAUMA 11/02/2025 3060-009 5S / / [id number] Screw T2 Alpha Lock 5x47.5mm - [id number] Implanted:Qty: 1 on 01/20/2021 by Alli Townsend MD at OR [facility] Left: Hip MILAN : TRAUMA 05/04/2029 2360-504 7S / / [id number] documented as of this encounter Advance Directives Documents on File Type Date Recorded Patient Electronics Processing Supervisor Expl anation POLST 07/15/2023 [place] OR [facility] FOR [...] First Alternate Health Care Agent Care Teams Football Coach Relationship Specialty Start Date End Date Amor Pate MD 21 [place] [address] PCP - General Family Medicine 12/06/22 documented as of this encounter
--- OUTSIDE RECORDS SUMMARY | 2024-08-18 16:27 | External Medical Summary | Summary of Care ---
Author Name Unknown Organization [facility] Address [address] [place] [address] Phone [phone] Care Team Providers Care Call Center Specialist Name Role Phone Amor Pate MD Primary Care Provider [phone] Reason for Visit * Reason Onset Date Comments Advice 03/16/2024 Home Health PT r eferral Encounter Details Date Type Department Care Team (Late st Contact Info) Description 03/16/2024 Telephone [facility] [address] [place] [address] Amor Pate MD [address] [place] [address] Advice (Home Health PT referral ) Allergies No known active allergiesdocumented as of this encounter (statuses as of 03/17/2024) Medications Medication Sig Dispensed Refills Start Date [...] in the morning. 30 Tablet 07/14/2023 Active Ujzbicz-Rlyboxppg-M itamin D ER 600-40-500 MG-MG-UNIT Tablet Extended [...] morning. 45 Tablet 3 12/25/2023 Active Nystatin 583778 UNIT/GM External CreamIndications:Ca ndidal intertrigo Apply topically [...] as of this encounter (statuses as of 03/17/2024) Active Problems Problem Noted Date Diagnosed Date [...] multicystic lesion of the pancreas CEA, FLUID 65844.0 ng/mL Final COMMENT Final The reference range [...] 06/18/2013 Last Assessment & Plan: S/p pacemaker snf current use of anticoagulant therapy 0 08/28/2010 [...] patient does not have a Power of Blood Bank Booking Clerk or Advanced Directives in place at [...] as of this encounter (statuses as of 03/17/2024) Resolved Problems Problem Noted Date Diagnosed Date [...] as of this encounter (statuses as of 03/17/2024) Immunizations Name Administration Dates Next Due COVID-19 mRNA, LNP-s, No Pre serve, 2-Dose Series (Epuramat) 10/26/2020,09/30/2020 Pneumococcal Conjugate Vacc, 13 Valent (Prevnar) [...] encounter Miscellaneous Notes * Telephone Encounter - Marilyn Madison, MED ASSIST - 03/17/2024 10:27 AM EDT [...] calling stating that she was notified by [facility] agency that she was discharged from [...] 8:00 AM EDT Laboratory Lab Mobile Phlebotomy [facility] 400 [place] [address] [facility], [facility] Mobile Home Draw [address] [place] Kumar [address] 03/26/2024 6:00 AM EDT Anticoagulation Centralized Clinical Pharmacy Services, Derrek Denton [address] [place] [address] [place]baum [address] [place] [address] 04/01/2024 3:00 PM EDT Telemedicine [facility], [facility] 132 [place] [address] Kayla Thompson CRNP [address] [place] [address] Carol Blevins, Community Health Iron [employer] Steel Work Supervisor [address] [place] [address] 04/10/2024 11:30 AM EDT Scheduled Telephone [facility], [facility] [address] [place] [facility] [address] Cyndie Hilton, RDN [address] [facility] [place] [address] 04/20/2024 4:00 PM EDT Home Visit [facility], [facility] 132 [place] [address] Allison Young RN 132 [place] [address] 04/21/2024 1:00 PM EDT Office Visit Podiatry, [address] [place] [address] Sydney Castelan DPM 400 [place] [address] 05/05/2024 2:00 PM EDT Office Visit Cardiology, [address] [place] [address] Stephanie Ramos PA-C 400 [place] [address] 05/14/2024 1:20 PM EDT Office Visit Gastroenterology, [facility] [address] [place] [phone] Cindy Elena, [address] [place] [address] 06/17/2024 11:00 AM EST Telemedicine Hematology/Oncology, [facility] 400 [facility] [place] SINGH [address] Billy Basurto MD 400 [facility] [place] [address] 08/18/2024 3:40 PM EST Office Visit Otolaryngology, [place] 27 [place] [address] Hema Hercules PA-C [address] [place] [address] 08/26/2024 5:40 PM EST Office Visit Family Practice, [place] [address] [place] [phone] Amor Pate MD 21 [facility] [place] [address] 09/10/2024 12:50 PM EST Office Visit Dermatology, [place] [address] [place] [facility] 140 [place] [address] Marilyn Ozuna PA-C [address] [place] [address] 12/31/2024 1:00 PM EDT Cardiac Studies Cardiology, [place] 400 [facility] [place] [address] [place], [facility] 400 [facility] [place] S[place] [address] 02/04/2025 12:00 PM EDT Home Visit Care at Home [address] [place] [address] Carol Mathew PA-C [address] [place] [address] Scheduled Procedures Name Priority Associated Diagnoses Date/Ti [...] Additional history exists CKD PHOS USE SMARTSET 87398 08/22/202408/05, 08/20/2023, 11/07/2022, Additional history exists Albumin/Creatinine Ratio 12/05/2024 12/06/2023, 03/06 Adult Wellness Visit 02/03/2025 02/04/2024, 02/29/20 23 Depression Screening 02/03/2025 02/04/2024, 12/10/19 24 CKD HGB USE SMARTSET 98699 03/02/202503/02, 03/02/2024, 02/17/2024, Additional history exists DXA Scan 04/22/2025 04/22/2023, 04/05, 12/25/2018, Additional history exists Pneumococcal Vaccine: 65+ Years Completed 02/01/2016, 10/27/2002 VITAMIN D LEVEL ONCE IN A LIFETIME-USE SMARTSET# 66847 Completed 09/16/2023, 10/20/2019, 03/11/2012, Additional history exists [...] this encounter Medical Devices Implanted Type Area Watch Engineer Device Identifier Shelf Expiration Date Model / Serial / Lot Implant System, Trim-It Drill Pin [id number](.078" X 4" Implanted:Qty: 1 on 10/10/2017 by Sydney Castelan DPM at OR [facility] Right: Toe 04/04/2019 AR-4152DS / / [id number] Medtronic Attesta Surescan Pacemaker Implanted:Qty: 1 on 06/09/2020 by Chanel Lin DO at OR [facility] Left: Chest 08/01/2021 ATSR01 / [id number] / Nail Gamma3 Left [id number] - [id number] Implanted:Qty: 1 on 01/20/2021 by Alli Townsend MD at OR [facility] Left: Hip MILAN : TRAUMA 12/03/2023 3525-034 0S / / [id number] Screw Lag 10.5x95mm - [id number] Implanted:Qty: 1 on 01/20/2021 by Alli Townsend MD at OR [facility] Left: Hip MILAN : TRAUMA 11/02/2025 3060-009 5S / / [id number] Screw T2 Alpha Lock 5x47.5mm - [id number] Implanted:Qty: 1 on 01/20/2021 by Alli Townsend MD at OR [facility] Left: Hip MILAN : TRAUMA 05/04/2029 2360-504 7S / / [id number] documented as of this encounter Advance Directives Documents on File Type Date Recorded Patient Bottom Steep Tender Raman OLIVO 07/15/2023 [place] [facility] [...] First Alternate Health Care Agent Care Teams Call Center Specialist Relationship Specialty Start Date End Date Amor Pate MD 21 [place] [address] PCP - General Family Medicine 12/06/22 documented as of this encounter
--- OUTSIDE RECORDS SUMMARY | 2024-08-18 16:27 | External Medical Summary ---
Author Name Unknown Address Unknown Organization K01:[facility]ORY [facility] - [address] [facility] [address] Laboratory Report Ordering Provider Test Date Status AMBROCIO LIVINGSTON 03/11/2024 13:36:07 Final <10,000 colonies/ml mixed no rmal christopher Observation Date Value Abnormality Reference (Units ) Status Bacteria identified in Specimen by Culture 03/11/2024 13:36:07 [id number]^ESCHE RICHIA COLI Abnormal Final 10,000 to 100,000 colonies/m L Escherichia coli Performing Location [facility]ORY [facility] - [address] [facility] [address] Ordering Provider Test Date Status AMBROCIO LIVINGSTON 03/11/2024 13:36:07 Final Observation Date Value Abnormality Reference (Units ) Status Ampicillin 03/11/2024 13:36:07 <=2 Susceptible Final Cefazolin 03/11/2024 13:36:07 <=4 Susceptible Final Cefepime susceptibility 03/11/2024 13:36:07 <=1 Susceptible Final Ceftriaxone suceptibility 03/11/2024 13:36:07 <=1 Susceptible Final Ciprofloxacin 03/11/2024 13:36:07 <=0.25 Susceptible Final Due to serious side effects, the FDA has advised against using Ciprofloxacin to treat uncomplicated UTIs and respiratory tract infections unless there are no alternative treatment options. Gentamicin susceptibility 03/11/2024 13:36:07 <=1 Susc eptible Final Nitrofurantoin susceptibility 03/11/2024 13:36:07 <=16 Susceptible Final Piperacillin + Tazobactamsusceptibility 03/11/2024 13:36:07 <=4 Susceptible Final TMP-SMZ susceptibility 03/11/2024 13:36:07 <=20 Suscept ible Final Test: Culture, Urine, Quanti tative
Specimen Source: Urine, Clean Catch
Specimen Type: Urine
Specimen Date: 03/11/2024 1336
Result Date: 03/13/2024 0756
Result Status: Final result
Abnormal: Yes
Resulting Lab: [facility]
[address]
[place] [address]

CULTURE

10,000 to 100,000 colonies/mL Escherichia coli (Abnormal)

<10,000 colonies/ml mixed normal christopher

SUSCEPTIBILITY

Escherichia coli
METHOD MICROBROTH
DILUTIONS

AMPICILLIN <=2 Susceptible
CEFAZOLIN <=4 Susceptible
CEFEPIME <=1 Susceptible
CEFTRIAXONE <=1 Susceptible
CIPROFLOXACIN <=0.25 Susceptible
[1]
GENTAMICIN <=1 Susceptible
NITROFURANTOIN <=16 Susceptible
PIPERACILLIN TAZOBACTAM <=4 Susceptible
TRIMETH/SULFAMETHOXAZOLE <=20 Susceptible

[1] Due to serious side effects, the FDA has advised against using
Ciprofloxacin to treat uncomplicated UTIs and respiratory tract infections
unless there are no alternative treatment options.

null Performing Location LAB[facility]ATORY [facility] - [address] [facility] [address]
--- OUTSIDE RECORDS SUMMARY | 2024-08-18 16:27 | External Medical Summary ---
Author Name Unknown Address Unknown Organization K1F:LABORATORY [facility] - [address] [place] [address] Laboratory Report Ordering Provider Test Date Status ANDREW HOOVER 03/11/2024 11:54:40 Final Please draw PT/INR every 1-4 weeks or as requested by the [facility] Coumadin Clinic

Warfarin Therapy
INR: 2.0-3.0 conventional anticoagulation
INR: 2.5-3.5 high intensity anticoagulation Observation Date Value Abnormality Reference (Units ) Status PT 03/11/2024 11:54:40 21.6 Above high normal 11 .6-15.2 (seconds) Final INR 03/11/2024 11:54:40 1.9 Above high normal 0. 8-1.2 Final Performing Location LABORATORY [facility] - [address] [address]
--- OUTSIDE RECORDS SUMMARY | 2024-08-18 16:27 | External Medical Summary | Summary of Care ---
Author Name Unknown Organization [facility] Address [address] [place] [address] Phone [phone] Care Team Providers Care Program Scheduler Name Role Phone Amor Pate MD Primary Care Provider [phone] [phone] Reason for Visit * Reason Comments Dosage Adjustment Via Phone (anticoag Cl inic) Encounter Details Date Type Department Care Team (Late st Contact Info) Description 03/12/2024 6:00 AM EDT Anticoagulation Centralized Clinical Pharmacy Services, Derrek Denton [address] [place] [address] [place] [address] [place] [address] prison current use of anticoagulant therapy* Allergies No known active allergiesdocumented as of this encounter (statuses as of 03/12/2024) Medications Medication Sig Dispensed Refills Start Date End Date Status Spironolactone 25 MG Oral Tablet (Aldactone)Indicatio ns:Tachy-nikki syndrome (HCC),HTN, goal below 140/90 Take 1 Tablet by mouth once a day on Saturday, Saturday, and Saturday only. Three days a week 12 Tablet 07/15/2023 Active Sennosides 8.6 MG Oral Tablet (Senokot) Take [...] in the morning. 30 Tablet 07/14/2023 Active Buqmovj-Fxpodszyq-Fb tamin D ER 600-40-500 MG-MG-UNIT Tablet Extended [...] morning. 45 Tablet 3 12/25/2023 Active Nystatin 728217 UNIT/GM External CreamIndications:Can didal intertrigo Apply topically [...] not improving 1 Each 1 01/10/2024 Active documented as of this encounter (statuses as of 03/12/2024) Active Problems Problem Noted Date Diagnosed Date [...] multicystic lesion of the pancreas CEA, FLUID 66575.0 ng/mL Final COMMENT Final The reference range [...] patient does not have a Power of Entry Level Sales Consultant or Advanced Directives in place at [...] as of this encounter (statuses as of 03/12/2024) Resolved Problems Problem Noted Date Diagnosed Date [...] as of this encounter (statuses as of 03/12/2024) Immunizations Name Administration Dates Next Due COVID-19 [...] as of this encounter Progress Notes * Kimi Amaro CPhT - 03/12/2024 9:06 AM EDT Contacts Type Contact Phone/Fax 03/12/2024 09:03 AM EDT Phone (Outgoing) Zulma Villar (Self) [phone] (H) Subjective Patient Findings Negatives: Signs/symptoms of bleeding, Change in health, Change in activity, Upcoming invasive procedure, Missed doses, Extra doses, Change in medications, Change in diet/appetite, Bruising Advised patient to contact Anticoagulation Clinic if any unusual bruising or bleeding, recent illness, changes in medication, or questions/concerns. PT/INR results, Coumadin dose instructions, and next PT/INR date communicated as noted by Pharmacist: Yes Kimi Amaro CPhT 03/12/2024, 9:07 AM * Kadie Byers RPh - 03/11/2024 9:05 PM EDT Coumadin Clinic (region specific) Objective Current Warfarin Dose As of 03/12/2024 Warfarin maintenance plan: 4 mg (2 mg x 2) every Fri; 2 mg (2 mg x 1) all other days INR Result As of 03/12/2024 INR goal: 2.0-3.0 INR used for dosin.9 (03/11/2024) Assessment & Plan Warfarin Plan As of 03/12/2024 Full warfarin instructions: 03/12: 4 mg; Otherwise 4 mg every Fri; 2 mg all other days Next INR check: 03/25/2024 Repeat PT/INR in 2 week(s) Weekly dose: not changed Additional Dosing Information: Description [facility] Lorraine Singh fax [phone] Boost- 1/day Tech to contact patient with dose instructions as noted. Kadie Byers RPh 03/11/2024, 9:05 PM documented in this encounter Plan of Treatment Upcoming Encounters Date Type Department Care Team (Late st Contact Info) Description 03/25/2024 8:00 AM EDT Laboratory Lab Mobile Phlebotomy [facility] [address] [place] [address] [facility], [facility] Mobile Home Draw [address] [place] [address] 03/26/2024 6:00 AM EDT Anticoagulation Centralized Clinical Pharmacy Services, Derrek Denton [address] [place] [address] [place] [address] [place] [address] 04/01/2024 3:00 PM EDT Telemedicine [facility], [facility] 132 [place] [address] Kayla Thompson CRNP 132 [place] [address] Carol Blevins, Community Health Copy Director [address] [place] [address] 04/10/2024 11:30 AM EDT Scheduled Telephone [facility], [facility] [address] [facility] [address] Cyndie Hilton RDN [address] [place] [facility] [place] [address] 04/20/2024 4:00 PM EDT Home Visit [facility], [facility] [address] [facility] [address] Allison Young RN 132 [place] [address] 04/21/2024 1:00 PM EDT Office Visit Podiatry, [facility] [address] [place] [address] Sydney Castelan DPM [address] [place] [address] 05/05/2024 2:00 PM EDT Office Visit Cardiology, [place] 400 [facility] [place] [address] Stephanie Ramos PALaureenC [address] [place] [address] 05/14/2024 1:20 PM EDT Office Visit Gastroenterology, [address], [place] 310 [facility] [place] [address] Cindy Elnea, DO [address] [place] [address] 06/17/2024 11:00 AM EST Telemedicine Hematology/Oncology, [facility] 400 [facility] [place] [address] Billy Basurto MD 400 [facility] [phone] 08/18/2024 3:40 PM EST Office Visit Otolaryngology, [place] [address] [place] [address] Hema Hercules PA-C [address] [place] [address] 08/26/2024 5:40 PM EST Office Visit Family [facility], [place] 21 [facility] [place] [phone] Amor Pate MD 21 [facility] [place] [place] [address] 09/10/2024 12:50 PM EST Office Visit Dermatology, Adwoa Green [place] 27 [facility] 140 [place] [address] Marilyn Ozuna PA-C [address] [place] [address] 12/31/2024 1:00 PM EDT Cardiac Studies Cardiology, [place] 400 [facility] [place] [address] [facility] 400 [facility] [place] [address] 02/04/2025 12:00 PM EDT Home Visit Care at Home [address] [facility] [place] [address] Carol Mathew PA-C [address] [facility] [place] [address] Scheduled Procedures Name Priority Associated Diagnoses Date/Ti [...] Additional history exists CKD PHOS USE SMARTSET 87681 08/22/202408/05, 08/20/2023, 11/07/2022, Additional history exists Albumin/Creatinine Ratio 12/05/2024 12/06/2023, 03/06 Adult Wellness Visit 02/03/2025 02/04/2024, 02/29/20 23 Depression Screening 02/03/2025 02/04/2024, 12/10/19 24 CKD HGB USE SMARTSET 27266 03/02/202503/02, 03/02/2024, 02/17/2024, Additional history exists DXA Scan 04/22/2025 04/22/2023, 04/05, 12/25/2018, Additional history exists Pneumococcal Vaccine: 65+ Years Completed 02/01/2016, 10/27/2002 VITAMIN D LEVEL ONCE IN A LIFETIME-USE SMARTSET# 54131 Completed 09/16/2023, 10/20/2019, 03/11/2012, Additional history exists [...] encounter Medical Devices Implanted Type Area Department Of Sociology Chair Device Identifier Shelf Expiration Date Model / Serial / Lot Implant System, Trim-It Drill Pin [id number]" X 4" Implanted:Qty: 1 on 10/10/2017 by Sydney Castelan DPM at OR [facility] Right: Toe 04/04/2019 AR-4152DS / / [id number] Medtronic Attesta Surescan Pacemaker Implanted:Qty: 1 on 06/09/2020 by Chanel Lin DO at OR [facility] Left: Chest 08/01/2021 ATSR01 / [id number] / Nail Gamma3 Left [id number] - [id number] Implanted:Qty: 1 on 01/20/2021 by Alli Townsend MD at OR [facility] Left: Hip MILAN : TRAUMA 12/03/2023 3525-034 0S / / [id number] Screw Lag 10.5x95mm - [id number] Implanted:Qty: 1 on 01/20/2021 by Alli Townsend MD at OR [facility] Left: Hip MILAN : TRAUMA 11/02/2025 3060-009 5S / / [id number] Screw T2 Alpha Lock 5x47.5mm - [id number] Implanted:Qty: 1 on 01/20/2021 by Alli Townsend MD at OR [facility] Left: Hip MILAN : TRAUMA 05/04/2029 [id number] 7S / / [id number] documented as of this encounter 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
--- OUTSIDE RECORDS SUMMARY | 2024-08-18 16:27 | External Medical Summary ---
Author Name Unknown Address Unknown Organization K1F:LABORATORY [facility] - [address] [place] [address] Laboratory Report Ordering Provider Test Date Status AMBROCIO LIVINGSTON 03/11/2024 13:36:07 Final Observation Date Value Abnormality Reference (Units ) Status Color of Urine by Auto 03/11/2024 13:36:07 Yellow Light Yellow, Yellow, Dark Yellow Final Clarity, Urine 03/11/2024 13:36:07 Clear Clear Final Glucose [Mass/volume] in Urine by Automated test strip 03/11/2024 13:36:07 Negative Negative (mg/dL) Final Bilirubin.total [Presence] in Urine by Automated test strip 03/11/2024 13:36:07 Negative Negative Final Ketones [Mass/volume] in Urine by Automated test strip 03/11/2024 13:36:07 Negative Negative (mg/dL) Final Specific gravity, Urine 03/11/2024 13:36:07 1.016 1.003-1.030 Final Hemoglobin [Presence] in Urine by Automated test strip 03/11/2024 13:36:07 Negative Negative Final pH, Urine 03/11/2024 13:36:07 6.0 5.0-7.5 (Units) Final Protein [Mass/volume] in Urine by Automated test strip 03/11/2024 13:36:07 Negative Negative (mg/dL) Final Urobilinogen [Mass/volume] in Urine by Automated test strip 03/11/2024 13:36:07 0.2 0.2, 1.0 (mg/dL) Final Nitrite [Presence] in Urine by Automated test strip 03/11/2024 13:36:07 Negative Negative Final Leukocyte esterase [Presence] in Urine by Automated test strip 03/11/2024 13:36:07 Negative Negative Final RBC, Urine 03/11/2024 13:36:07 0-2 0-2 (/HPF) Final WBC, Urine 03/11/2024 13:36:07 0-2 0-2 (/HPF) Final Bacteria [#/area] in Urine sediment by Microscopy high power field 03/11/2024 13:36:07 26-50 Abnormal 0-25 (/HPF) Final Performing Location LABORATORY [facility] - [address] [place] [address] snehal Kay[address] [place] [address]
--- OUTSIDE RECORDS SUMMARY | 2024-08-18 16:27 | External Medical Summary | Summary of Care ---
Author Name Unknown Organization [facility] Address [address] [place] [address] Phone [phone] Care Team Providers Care Television Mechanic Name Role Phone Amor Pate MD Primary Care Provider [phone] [phone] Reason for Visit * Reason Comments eRx-Medication Refill Encounter Details Date Type Department Care Team (Late st Contact Info) Description 03/15/2024 Refill Cardiology, [facility] [address] [facility] [place] [address] Daniel Schofield MD 132 [facility] [place] [address] Tachy-nikki syndrome (HCC); HTN, goal below 140/90 Allergies No known active allergiesdocumented as of [...] 11/18/2023 Sertraline HCl 50 MG Oral Tablet (Zoloft)Indication [...] mouth daily. 90 Tablet 3 4 Active Medihoney Wound &Burn Dressing External Paste Apply to wound bed daily. Cover with Optifoam dressing 103 mL 2 4 Active MEDICAL INSTRUCTIONSIndica tions:Pressure injury of skin of buttock, unspecified injury stage, unspecified laterality Apply medihoney daily and allevyn foam to bilateral gluteal pressure injury. 1 Each 1 4 Active Metoprolol Succinate ER 25 MG Oral Tablet Extended Release 24 Hour (toPROL XL) Take 0.5 Tablets by mouth in the morning. 45 Tablet 3 4 Active Nystatin 707961 UNIT/GM External CreamIndications:C andidal intertrigo Apply topically to affected area 2 times a day. To affacted area for two weeks. 15 g 2 4 Active Omeprazole 20 MG Oral Capsule Delayed Release (PriLOSEC)Indicati ons:GERD (gastroesophageal reflux disease) Take 1 capsule by mouth in the morning 90 Capsule 4 Active MEDICAL INSTRUCTIONS Please provide wound care for heel and arm in manner nurse sees fit. Offload heel pressure injury. Make aware if not improving 1 Each 1 4 Active Nitrofurantoin Monohyd Macro 100 MG Oral Capsule (Macrobid)Indicati ons:Suspected urinary tract infection Take 1 Capsule by mouth in the morning and 1 Capsule before bedtime. Do all this for 5 days. 10 Capsule 4 03/18/20 24 Active Spironolactone 25 MG Oral Tablet (Aldactone)Indicat ions:Tachy-nikki syndrome (HCC),HTN, goal below 140/90 Take 1 Tablet by mouth once a day on Saturday, Saturday, and Saturday only. 40 Tablet 3 4 Active Spironolactone 25 MG Oral Tablet (Aldactone)Indicat ions:Tachy-nikki syndrome (HCC),HTN, goal below 140/90 Take 1 Tablet by mouth once a day on Saturday, Saturday, and Saturday only. 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 Authorizing Provider: DAYSI COLON * Telephone Encounter - Lelo Menchaca CMA - 03/16/2024 11:54 AM EDTPending Prescriptions: Disp Refills Spironolactone 25 MG Oral Tablet (Aldacton*40 Tab*3 Sig: Take 1 Tablet by mouth once a day on Saturday, Saturday, and Saturday only. * Telephone Encounter - Lelo Menchaca CMA - 03/16/2024 11:54 AM EDT Did you pend patient's preferred pharmacy and medication before forwarding?yes Pharmacy: [id number] [address] Pending Prescriptions: Disp Refills Spironolactone 25 MG Oral Tablet (Aldacto*40 Tab*3 Sig: Take 1 Tablet by mouth once a day on Saturday, Saturday, and Saturday only. Last Visit: 11/04/2023 (in office), Visit date not found (telemedicine) Next Visit: Visit date not found If no future appointments scheduled, and last appointment is greater than a year ago, please schedule patient for a follow-up appointment Last date the medication was ordered: 07-15-2023 Is this request for a controlled substance?No [...] Labs: Lab Results Component Value Date/Time CREAT 0.8 03/02/2024 09:50 AM CREAT 1.0 08/22/2020 11:12 AM POTASSIUM 4.2 03/02/2024 09:50 AM POTASSIUM 4.3 07/11/2020 11:34 AM TSH 0.78 01/21/2023 08:30 AM TSH 1.10 10/01/2018 04:29 PM LDLCALC 35 11/07/2022 05:01 AM LDLCALC 61 10/20/2019 11:42 AM LDLDIRECT NOT APPLICABLE 10/20/2019 11:42 AM LDLDIRECT 144 (H) 02/11/2014 11:24 AM ALT 12 03/02/2024 09:50 AM ALT 20 07/11/2020 11:34 AM HGBA1C 5.5 07/09/2023 04:30 AM documented in this encounter Plan of Treatment Upcoming Encounters Date Type Department Care Team (Late st Contact Info) Description 03/25/2024 8:00 AM EDT Laboratory Lab Mobile Phlebotomy [facility] [address] [place] [address] Gl, l Mobile Home Draw [address] [place] [address] 03/26/2024 6:00 AM EDT Anticoagulation Centralized Clinical Pharmacy Services, Derrek [address] [place] [address] Ccps, [address] [place] [address] 04/01/2024 3:00 PM EDT Telemedicine [facility], [facility] 132 [facility] [place] [address] Kayla Thompson CRNP 132 [facility] [place] [address] Carol Blevins, Community Health Shift Supervisor [place] [address] [place] [address] 04/10/2024 11:30 AM EDT Scheduled Telephone [facility], [facility] [address] [facility] [place] [address] Cyndie Hilton, RDN [address] [facility] [place] [address] 04/20/2024 4:00 PM EDT Home Visit [facility], [facility] 132 [facility] [place] [address] Allison Young, RN 132 [facility] [place] [address] 04/21/2024 1:00 PM EDT Office Visit Podiatry, [facility] [address] [place] [address] Sydney Castelan, MARIO 400 [place] [address] 05/05/2024 2:00 PM EDT Office Visit Cardiology, [place] [address] [place] [address] Stephanie Ramos PA-C 400 [place] [address] 05/14/2024 1:20 PM EDT [facility] [address] [facility] [place] [phone] Cindy Elena, DO [address] [facility] [place] [address] 06/17/2024 11:00 AM EST Telemedicine Hematology/Oncology, [facility] [address] [facility] [place] [address] Billy Basurto MD 400 [place] [phone] 08/18/2024 3:40 PM EST Office Visit Otolaryngology, Adwoa Loz[address] [place] [address] [place] [address] Hema Hercules PA-C 27 [facility] [place] [place] [address] 08/26/2024 5:40 PM EST Office Visit Family Practice, [place] [address] [place] [phone] Amor Pate MD 21 [facility] [place] [address] 09/10/2024 12:50 PM EST Office Visit Dermatology, [place] [address] [place] 140 [place] [address] Marilyn Ozuna PA-C [address] [place] [address] 12/31/2024 1:00 PM EDT Cardiac Studies Cardiology, [place] 400 [facility] [place] [address] [place] 400 [facility] [place] [address] 02/04/2025 12:00 PM EDT Home Visit Care at Home [address] [place], [place] [phone] Carol Mathew PA-C [address] [place] [address] Scheduled Procedures Name Priority Associated Diagnoses Date/Ti [...] Additional history exists CKD PHOS USE SMARTSET 03795 08/22/202408/05, 08/20/2023, 11/07/2022, Additional history exists Albumin/Creatinine Ratio 12/05/2024 12/06/2023, 03/06 Adult Wellness Visit 02/03/2025 02/04/2024, 02/29/20 23 Depression Screening 02/03/2025 02/04/2024, 12/10/19 24 CKD HGB USE SMARTSET 51598 03/02/202503/02, 03/02/2024, 02/17/2024, Additional history exists DXA Scan 04/22/2025 04/22/2023, 04/05, 12/25/2018, Additional history exists Pneumococcal Vaccine: 65+ Years Completed 02/01/2016, 10/27/2002 VITAMIN D LEVEL ONCE IN A LIFETIME-USE SMARTSET# 13990 Completed 09/16/2023, 10/20/2019, 03/11/2012, Additional history exists [...] this encounter Medical Devices Implanted Type Area Bankruptcy Attorney Device Identifier Shelf Expiration Date Model / Serial / Lot Implant System, Trim-It Drill Pin [id number](.078" X 4" Implanted:Qty: 1 on 10/10/2017 by Sydney Castelan DPM at OR [facility] Right: Toe 04/04/2019 AR-4152DS / / [id number] Medtronic Attesta Surescan Pacemaker Implanted:Qty: 1 on 06/09/2020 by Chanel Lin DO at OR [facility] Left: Chest 08/01/2021 ATSR01 / [id number] / Nail Gamma3 Left [id number] - [id number] Implanted:Qty: 1 on 01/20/2021 by Alli Townsend MD at OR [facility] Left: Hip MILAN : TRAUMA 12/03/2023 3525-034 0S / / [id number] Screw Lag 10.5x95mm - [id number] Implanted:Qty: 1 on 01/20/2021 by Alli Townsend MD at OR [facility] Left: Hip MILAN : TRAUMA 11/02/2025 3060-009 5S / / [id number] Screw T2 Alpha Lock 5x47.5mm - [id number] Implanted:Qty: 1 on 01/20/2021 by Alli Townsend MD at OR [facility] Left: Hip MILAN : TRAUMA 05/04/2029 2360-504 7S / / [id number] documented as of this encounter Visit Diagnoses Diagnosis Tachy-nikki syndrome (HCC) Sinoatrial node dysfunction HTN, goal below 140/90 Unspecified essential hypertension documented in this encounter Advance Directives Documents on File Type Date Recorded Patient Tin Whiz Machine Operator Expl anation POLST 07/15/2023 [place] OR [facility] FOR [...] First Alternate Health Care Agent Care Teams Television Mechanic Relationship Specialty Start Date End Date Amor Pate MD 21 [place] [phone] PCP - General Family Medicine 12/06/22 documented as of this encounter
--- OUTSIDE RECORDS SUMMARY | 2024-08-18 16:27 | External Medical Summary | Summary of Care ---
Author Name Unknown Organization [facility] Address [address] [place] [address] Phone [phone] Care Team Providers Care Bag Bundler Name Role Phone Amor Pate MD Primary Care Provider [phone] Reason for Visit * Reason Onset Date Comments [facility]: Maintenance 03/11/2024 Encounter Details Date Type Department Care Team (Late st Contact Info) Description 03/11/2024 Telephone [facility], [facility] [address] [facility] [place] [address] [facility], Nurse [facility] [address] [facility] [place] [address] [facility]: Maintenance Allergies No known active allergiesdocumented as of this encounter (statuses as of 03/11/2024) Medications Medication Sig Dispensed Refills Start Date [...] in the morning. 30 Tablet 07/14/2023 Active Bnhqbwf-Hvgfwuczw-Gn tamin D ER 600-40-500 MG-MG-UNIT Tablet Extended [...] morning. 45 Tablet 3 12/25/2023 Active Nystatin 299521 UNIT/GM External CreamIndications:Can didal intertrigo Apply topically [...] as of this encounter (statuses as of 03/11/2024) Active Problems Problem Noted Date Diagnosed Date [...] multicystic lesion of the pancreas CEA, FLUID 13156.0 ng/mL Final COMMENT Final The reference range [...] 06/18/2013 Last Assessment & Plan: S/p pacemaker custodial current use of anticoagulant [...] patient does not have a Power of Third Loader or Advanced Directives in place at this [...] as of this encounter (statuses as of 03/11/2024) Resolved Problems Problem Noted Date Diagnosed Date [...] as of this encounter (statuses as of 03/11/2024) Immunizations Name Administration Dates Next Due COVID-19 [...] Telephone Encounter - Sima Dallas RN - 03/11/2024 8:10 AM EDT Call received from the pt. Calling to find out if she had a [facility] appt today. Chart reviewed. No [facility] appt scheduled, only GML. Made pt aware of same. documented in this encounter Plan of Treatment Upcoming Encounters Date Type Department Care Team (Late st Contact Info) Description 03/12/2024 6:00 AM EDT [facility] Clinical Pharmacy Services, Derrek Denton [address] [place] [address] [place] [address] [place] [address] 04/01/2024 3:00 PM EDT Telemedicine [facility], [address] [address] Kayla Thompson CRNP [address] [place] [address] Carol Blevins, Community Health Boat Repairer [address] [place] [address] 04/10/2024 11:30 AM EDT Scheduled Telephone [facility], [facility] [address] [facility] [place] [address] Cyndie Hilton, RDN [address] [facility] [place] [address] 04/20/2024 4:00 PM EDT Home Visit [facility], [address] [place] [address] Allison Young RN 132 [place] [address] 04/21/2024 1:00 PM EDT Office Visit Podiatry, [address] [facility] [address] Sydney Castelan, [facility] 400 [facility] [address] 05/05/2024 2:00 PM EDT Office Visit Cardiology, [address] [place] [address] Stephanie Ramos PA-C 400 [place] [address] 05/14/2024 1:20 PM EDT Office Visit Gastroenterology, [facility] [address] [place] [phone] Cindy Elena, DO [address] [place] [address] 06/17/2024 11:00 AM EST Telemedicine Hematology/Oncology, [facility] 400 [facility] [place] [address] Billy Basurto MD 400 [facility] [phone] 08/18/2024 3:40 PM EST Office Visit Otolaryngology, [place] 27 [place] [address] Hema Hercules PA-C 27 [address] [place] [address] 08/26/2024 5:40 PM EST Office Visit [facility], [place] [address] [facility] [place]re [phone] Amor Pate MD 21 [place] [address] 09/10/2024 12:50 PM EST Office Visit Dermatology, [place] [address]ozada [facility] 140 [place] [address] Marilyn Ozuna PA-C 27 [place] [address] 12/31/2024 1:00 PM EDT Cardiac Studies Cardiology, [place] 400 [facility] [place] [address] Lucita Singh [facility] [address] [place] [address] 02/04/2025 12:00 PM EDT Home Visit Care at Home [address] [facility] [place] [address] Carol Mathew PA-C [address] [facility] [place] [address] Scheduled Procedures Name Priority Associated Diagnoses Date/Ti [...] Additional history exists CKD PHOS USE SMARTSET 92350 08/22/202408/05, 08/20/2023, 11/07/2022, Additional history exists Albumin/Creatinine Ratio 12/05/2024 12/06/2023, 03/06 Adult Wellness Visit 02/03/2025 02/04/2024, 02/29/20 23 Depression Screening 02/03/2025 02/04/2024, 12/10/19 24 CKD HGB USE SMARTSET 42891 03/02/202503/02, 03/02/2024, 02/17/2024, Additional history exists DXA Scan 04/22/2025 04/22/2023, 04/05, 12/25/2018, Additional history exists Pneumococcal Vaccine: 65+ Years Completed 02/01/2016, 10/27/2002 VITAMIN D LEVEL ONCE IN A LIFETIME-USE SMARTSET# 50070 Completed 09/16/2023, 10/20/2019, 03/11/2012, Additional history exists [...] this encounter Medical Devices Implanted Type Area Director Of Scientific Research Device Identifier Shelf Expiration Date Model / Serial / Lot Implant System, Trim-It Drill Pin [id number]" X 4" Implanted:Qty: 1 on 10/10/2017 by Sydney Castelan DPM at OR [facility] Right: Toe 04/04/2019 AR-[id number] / / [id number] Medtronic Attesta Surescan Pacemaker Implanted:Qty: 1 on 06/09/2020 by Chanel Lin DO at OR [facility] Left: Chest 08/01/2021 ATSR01 / [id number] / Nail [id number] Left [id number] - [id number] Implanted:Qty: 1 on 01/20/2021 by Alli Townsend MD at OR [facility] Left: Hip MILAN : TRAUMA 12/03/2023 3525-034 0S / / [id number] Screw Lag 10.5x95mm - [id number] Implanted:Qty: 1 on 01/20/2021 by Alli Townsend MD at OR [facility] Left: Hip MILAN : TRAUMA 11/02/2025 3060-009 5S / / [id number] Screw T2 Alpha Lock 5x47.5mm - [id number] Implanted:Qty: 1 on 01/20/2021 by Alli Townsend MD at OR [facility] Left: Hip MILAN : TRAUMA 05/04/2029 2360-504 7S / / [id number] documented as of this encounter Advance Directives Documents on File Type Date Recorded Patient Licensed Psychologist Expl shasha POLST 07/15/2023 [place] OR [facility] FOR LIFE-SUSTAINING TREATMENT * Full [...] First Alternate Health Care Agent Care Teams Bag Bundler Relationship Specialty Start Date End Date Amor Pate MD 21 [place] [address] PCP - General Family Medicine 12/06/22 documented as of this encounter
--- OUTSIDE RECORDS SUMMARY | 2024-08-18 16:28 | External Medical Summary | Summary of Care ---
Author Name Unknown Organization [facility] Address [address] [place] [address] Phone [phone] Care Team Providers Care Small Machine Bindery Operator Name Role Phone Amor Pate MD Primary Care Provider [phone] Reason for Visit * Reason Onset Date Comments [facility]: Maintenance 02/26/2024 Encounter Details Date Type Department Care Team (Late st Contact Info) Description 02/26/2024 Telephone [facility], [facility] [address] [facility] [place] [address] [facility], Nurse [facility] [address] [facility] [place] [address] [facility]: Maintenance Allergies No known active allergiesdocumented as of this encounter (statuses as of 02/26/2024) Medications Medication Sig Dispensed Refills Start Date [...] in the morning. 30 Tablet 07/14/2023 Active Wwplggw-Zgobmpcxx-Ti tamin D ER 600-40-500 MG-MG-UNIT Tablet Extended [...] morning. 45 Tablet 3 12/25/2023 Active Nystatin 254637 UNIT/GM External CreamIndications:Can didal intertrigo Apply topically [...] as of this encounter (statuses as of 02/26/2024) Active Problems Problem Noted Date Diagnosed Date [...] multicystic lesion of the pancreas CEA, FLUID 94955.0 ng/mL Final COMMENT Final The reference range [...] patient does not have a Power of Wood Heel Attacher or Advanced Directives in place at this [...] as of this encounter (statuses as of 02/26/2024) Resolved Problems Problem Noted Date Diagnosed Date [...] as of this encounter (statuses as of 02/26/2024) Immunizations Name Administration Dates Next Due COVID-19 [...] encounter Miscellaneous Notes * Telephone Encounter - Dai Valentino RN - 02/26/2024 11:36 AM EDT Phone call from patient requesting order for 3x3 wound dressing, patient states she is out of them. She reports she is using dressing on back of LLE at crease of brief. HH nurse was there 1-2 days ago and left patient a dressing. The brand is [employer] hydrocellular foam dressings 3in x 3in. Patient is unclear on whether [facility] or is ordering dressings. Patient called back said she found a box of 6 more dressings so it is not an emergency but will need ordered. Phone call to [place] ([phone]) regarding supplies. Nurse apartment community manager Alena unavailable to speak with at this time, requests call back. CB to SARITA Carvajal to return call to [facility] regarding supplies. Dai Valentino RN, BSN [facility] nuclear medicine technologist Navigator documented in this encounter Plan of Treatment Upcoming Encounters Date Type Department Care Team (Late st Contact Info) Description 02/27/2024 6:00 AM EDT Anticoagulation Centralized Clinical Pharmacy Services, Derrek Denton [address] [place] [address] [place] [address] [place] [address] 03/02/2024 8:20 AM EDT Laboratory Lab Mobile Phlebotomy [facility] 400 [facility] [address] [facility] Mobile Home Draw 400 [facility] [address] 03/04/2024 2:00 PM EDT Appointment Radiology, [facility] 400 [facility] [place] [phone] Prep, [facility] 400 [facility] [address] 03/04/2024 4:00 PM EDT Home Visit [facility] at [address] [place] [address] Allison Young, RN 132 [facility] [place] [address] 04/01/2024 3:00 PM EDT Telemedicine [facility] at [place], [place] [address] [place] [address] Kayla Thompson, RAND BUTTING MACHINE OPERATOR [address] [place] [address] Carol Blevins, Community Health Boiler Room Helper [address] [place] [address] 04/10/2024 11:30 AM EDT Scheduled Telephone [facility], [facility] [address] [facility] [address] Cyndie Hilton, RDN [address] [facility] [place] [address] 04/21/2024 1:00 PM EDT Office Visit Podiatry, [facility] 400 [place] [address] Sydney Castelan, DPModesta 400 [place] [address] 05/05/2024 2:00 PM EDT Office Visit Cardiology, [place] [address] [place] [address] Stephanie Ramos PA-C 400 [place] [address] 05/14/2024 1:20 PM EDT Office Visit Gastroenterology, [facility] [address] [place] [phone] Cindy Elena, DO [address] [place] [address] 06/17/2024 11:00 AM EST Telemedicine Hematology/Oncology, [facility] 400 [place] [address] Billy Basurto MD 400 [facility] [place] [phone] 08/18/2024 3:40 PM EST Office Visit Otolaryngology, [place] [address] [place] [address] Hema Hercules PA-C [address] [place] [address] 08/26/2024 5:40 PM EST Office Visit Family [facility], [place] [address] [phone] Amor Pate MD 21 [place] [address] 09/10/2024 12:50 PM EST Office Visit Dermatology, [place] [address] [place] 140 [place] [address] Marilyn Ozuna PA-C [address] [place] [address] 12/31/2024 1:00 PM EDT Cardiac Studies Cardiology, [place] 400 [facility] [place] [phone] [place], Pacer [facility] 400 [facility] [place] S[place]H [phone] 02/04/2025 12:00 PM EDT Home Visit Care at Home [address] [facility] [place] [phone] Carol Mathew PA-C [address] [facility] [place] [phone] Scheduled Procedures Name Priority Associated Diagnoses Date/Ti [...] Additional history exists CKD PHOS USE SMARTSET 21562 08/22/202408/05, 08/20/2023, 11/07/2022, Additional history exists Albumin/Creatinine Ratio 12/05/2024 12/06/2023, 03/06 Depression Screening 02/03/2025 02/04/2024, 12/10/19 CKD HGB USE SMARTSET 74411 02/16/202502/16, 02/17/2024, 01/03/2024, Additional history exists DXA Scan 04/22/2025 04/22/2023, 04/05, 12/25/2018, Additional history exists Pneumococcal Vaccine: 65+ Years Completed 02/01/2016, 10/27/2002 VITAMIN D LEVEL ONCE IN A LIFETIME-USE SMARTSET# 21302 Completed 09/16/2023, 10/20/2019, 03/11/2012, Additional history exists [...] this encounter Medical Devices Implanted Type Area Coke Oven Patcher Device Identifier Shelf Expiration Date Model / Serial / Lot Implant System, Trim-It Drill Pin [id number]" X 4" Implanted:Qty: 1 on 10/10/2017 by Sydney Castelan DPM at OR [facility] Right: Toe 04/04/2019 AR-4152DS / / [id number] Medtronic Attesta Surescan Pacemaker Implanted:Qty: 1 on 06/09/2020 by Chanel Lin DO at OR [facility] Left: Chest 08/01/2021 ATSR01 / [id number] / Nail [id number] Left [id number] - [id number] Implanted:Qty: 1 on 01/20/2021 by Alli Townsend MD at OR [facility] Left: Hip MILAN : TRAUMA 12/03/2023 3525-034 0S / / [id number] Screw Lag 10.5x95mm - [id number] Implanted:Qty: 1 on 01/20/2021 by Alli Townsend MD at OR [facility] Left: Hip MILAN : TRAUMA 11/02/2025 3060-009 5S / / [id number] Screw T2 Alpha Lock 5x47.5mm - [id number] Implanted:Qty: 1 on 01/20/2021 by Alli Townsend MD at OR [facility] Left: Hip MILAN : TRAUMA 05/04/2029 2360-504 7S / / [id number] documented as of this encounter Advance Directives Documents on File Type Date Recorded Patient Outboard Motorboat Operator Expl anation POLST 07/15/2023 [place] OR [facility] FOR LIFE-SUSTAINING TREATMENT [...] First Alternate Health Care Agent Care Teams Small Machine Bindery Operator Relationship Specialty Start Date End Date Amor Pate MD 21 [place] [phone] PCP - General Family Medicine 12/06/22 documented as of this encounter
--- OUTSIDE RECORDS SUMMARY | 2024-08-18 16:28 | External Medical Summary ---
Author Name Unknown Address Unknown Organization K01:[facility] [place] [address] [facility] [address] Laboratory Report Ordering Provider Test Date Status REGGIE YUANDariana 03/02/2024 09:48:53 Final Observation Date Value Abnormality Reference (Units ) Status Ferritin 03/02/2024 09:48:53 404 Above high normal 13 -150 (ng/mL) Final Postmenopausal women have hi gher ferritin levels than pre-menopausal women. The above reference interval is based on pre-menopausal women. Performing Location [facility] [place] [address] [facility] [address]
--- OUTSIDE RECORDS SUMMARY | 2024-08-18 16:28 | External Medical Summary | Summary of Care ---
Author Name Unknown Organization [facility] Address [address] [place] [address] Phone [phone] Care Team Providers Care Antitank Assault Gunner Name Role Phone Amor Pate MD Primary Care Provider [phone] Reason for Referral * Precert (Within 24 hrs (call dept; emergent)) - Pending Review Specialty Diagnoses / Procedures Referred By Contac t Referred To Contact Radiology Diagnoses IPMN (intraductal papillary mucinous neoplasm) Procedures CT PANCREAS W WO IV AND W ORAL CONTRAST Billy Basurto MD [address] [place] [phone] Referral ID Status Reason Start Date Expiration Date V isits Requested Visits Authorized [id number] Pending Review 02/17/2024 999 999 Reason for Visit * Precert (Within 24 hrs (call dept; emergent)) - Pending Review Specialty Diagnoses / Procedures Referred By Contac t Referred To Contact Radiology Diagnoses IPMN (intraductal papillary mucinous neoplasm) Procedures CT PANCREAS W WO IV AND W ORAL CONTRAST Billy Basurto MD [address] [place] [phone] Referral ID Status Reason Start Date Expiration Date V isits Requested Visits Authorized [id number] Pending Review 02/17/2024 999 999 Encounter Details Date Type Department Care Team (Latest Contact Info) Description 03/04/2024 2:00 PM EDT - 03/04/2024 11:59 PM EDT Hospital Encounter Radiology, [facility] [address] [place] [address] Prep, [facility] [address] [place] [address] Arrived Discharge Disposition: Home - Self Care Allergies No known active allergiesdocumented as of this encounter (statuses as of 03/05/2024) Medications Medication Sig Dispensed Refills Start Date [...] in the morning. 30 Tablet 07/14/2023 Active Ozjkqxa-Lidozsixl-Kc tamin D ER 600-40-500 MG-MG-UNIT Tablet Extended [...] morning. 45 Tablet 3 12/25/2023 Active Nystatin 244644 UNIT/GM External CreamIndications:Can didal intertrigo Apply topically [...] as of this encounter (statuses as of 03/05/2024) Active Problems Problem Noted Date Diagnosed Date [...] multicystic lesion of the pancreas CEA, FLUID 33834.0 ng/mL Final COMMENT Final The reference range [...] patient does not have a Power of Skein Dyer or Advanced Directives in place at this [...] as of this encounter (statuses as of 03/05/2024) Resolved Problems Problem Noted Date Diagnosed Date [...] & Plan: Followed by hematology--next appt in Will get updated labs to ensure stability [...] as of this encounter (statuses as of 03/05/2024) Immunizations Name Administration Dates Next Due COVID-19 [...] Team (Late st Contact Info) Description 03/11/2024 8:00 AM EDT Laboratory Lab Mobile [facility]bot[facility] [place] [facility] [address] [facility], [facility] Mobile Home Draw [address] [facility] [place] [address] 03/12/2024 6:00 AM EDT Anticoagulation Centralized Clinical Pharmacy Services, Derrek Denton [address] [place] [address] [place] [address] Ccps, [address] [place] [address] 04/01/2024 3:00 PM EDT Telemedicine [facility] [place], [facility] [address] [place] [address] Kayla Thompson CRNP 132 [place] [address] Carol Blevins, [facility] V[employer]er Taper [address] [place] [address] 04/10/2024 11:30 AM EDT Scheduled Telephone [facility], [facility] [address] [facility] [place] [address] Cyndie Hilton, TEMON [address] [place] [address] 04/20/2024 4:00 PM EDT Home Visit [facility] 132 [facility] [place] [address] Allison Young RN 132 [facility] [place] [address] 04/21/2024 1:00 PM EDT Office Visit Podiatry, [facility] 400 [place] [address] Sydney Castelan, DP 400 [place] [address] 05/05/2024 2:00 PM EDT Office Visit Cardiology, [place] 400 [facility] [place] [address] Stephanie Ramos PA-C 400 [facility] [place] [address] 05/14/2024 1:20 PM EDT Office Visit Gastroenterology, [facility] 310 [facility] [place] [phone] Cindy Elena DO 132 [facility] [address] 06/17/2024 11:00 AM EST Telemedicine Hematology/Oncology, [facility] [address] [facility] [address] Billy Basurto MD 400 [facility] [place] [phone] 08/18/2024 3:40 PM EST [facility] [address] [place] [address] Hema Hercules PA-C [address] [place] [address] 08/26/2024 5:40 PM EST Office Visit Family [facility], [place] [address] [place] [phone] Amor Pate MD [address] [place] [address] 09/10/2024 12:50 PM EST Office Visit Dermatology, [place] [address] [place] [address] Marilyn Ozuna PA-C [address] [place] [address] 12/31/2024 1:00 PM EDT Cardiac Studies Cardiology, [place] 400 [facility] [place] [address] [place], [facility] 400 [facility] [place] [address] 02/04/2025 12:00 PM EDT Home Visit Care at Home [address], [place] [phone] Carol Mathew PA-C 100 [address] [facility] [place] [phone] Scheduled Procedures Name Priority Associated Diagnoses Date/Ti [...] Additional history exists CKD PHOS USE SMARTSET 28947 08/22/202408/05, 08/20/2023, 11/07/2022, Additional history exists Albumin/Creatinine Ratio 12/05/2024 12/06/2023, 03/06 Depression Screening 02/03/2025 02/04/2024, 12/10/19 CKD HGB USE SMARTSET 03903 03/02/202503/02, 03/02/2024, 02/17/2024, Additional history exists DXA Scan 04/22/2025 04/22/2023, 04/05, 12/25/2018, Additional history exists Pneumococcal Vaccine: 65+ Years Completed 02/01/2016, 10/27/2002 VITAMIN D LEVEL ONCE IN A LIFETIME-USE SMARTSET# 78391 Completed 09/16/2023, 10/20/2019, 03/11/2012, Additional history exists [...] this encounter Medical Devices Implanted Type Area Crinkling Machine Operator Device Identifier Shelf Expiration Date Model / Serial / Lot Implant System, Trim-It Drill Pin [id number]" X 4" Implanted:Qty: 1 on 10/10/2017 by Sydney Castelan DPM at OR [facility] Right: Toe 04/04/2019 AR-[id number] / / [id number] Medtronic Attesta Surescan Pacemaker Implanted:Qty: 1 on 06/09/2020 by Chanel Lin DO at OR [facility] Left: Chest 08/01/2021 ATSR01 / [id number] / Nail [id number] Left [id number] - [id number] Implanted:Qty: 1 on 01/20/2021 by Alli Townsend MD at OR [facility] Left: Hip MILAN : TRAUMA 12/03/2023 3525-034 0S / / [id number] Screw Lag 10.5x95mm - [id number] Implanted:Qty: 1 on 01/20/2021 by Alli Townsend MD at OR [facility] Left: Hip MILAN : TRAUMA 11/02/2025 3060-009 5S / / [id number] Screw T2 Alpha Lock 5x47.5mm - [id number] Implanted:Qty: 1 on 01/20/2021 by Alli Townsend MD at OR [facility] Left: Hip MILAN : TRAUMA 05/04/2029 2360-504 7S / / [id number] documented as of this encounter Procedures Procedure Name Priority Date/Time Associated Diagnosis Comments CT PANCREAS W WO IV AND W ORAL CONTRAST STAT 03/04/2024 2:54 PM EDT IPMN (intraductal papillary mucinous neoplasm) documented in this encounter Results * CT PANCREAS W WO IV AND W ORAL CONTRAST (03/04/2024 2:54 PM EDT) Anatomical Region Laterality Modality Abdomen, Body Computed Tomogra phy 03/04/2024 4:21 PM EDT Impressions 03/04/2024 4:19 PM EDT IMPRESSION 9 mm fluid-filled mass in the head of the pancreas 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 No growing mass suggestive of malignancy is demonstrated. Narrative 03/04/2024 4:[address] PANCREAS W WO IV AND W ORAL CONTRAST-03/04/2024 2:54 pm HISTORY evaluate IPMN of pancreas TECHNIQUE The exam was done with IV contrast cava no oral contrast was given. COMPARISON 10/26/2022. FINDINGS There is an 18 mm mass in the region of the uncinate process of the pancreas. This was previously fluid-filled, but now shows some aerated suggesting that it is merely a duodenal diverticulum. 9 mm fluid-filled mass is seen higher up in the pancreatic head unchanged from the previous exam. The pancreatic duct is mildly dilated. As the cystic structure in the pancreatic head has not changed in size and probably represents a pseudocyst in this patient with the dilated pancreatic duct. Procedure Note Santhosh Schofield MD - 03/04/[address] PANCREAS W WO IV AND W ORAL CONTRAST-03/04/2024 2:54 pm HISTORY evaluate IPMN of pancreas TECHNIQUE The exam was done with IV contrast cava no oral contrast was given. COMPARISON 10/26/2022. FINDINGS There is an 18 mm mass in the region of the uncinate process of thepancreas. This was previously fluid-filled, but now shows some aeratedsuggesting that it is merely a duodenal diverticulum. 9 mm fluid-filledmass is seen higher up in the pancreatic head unchanged from the previousexam. The pancreatic duct is mildly dilated. As the cystic structure inthe pancreatic head has not changed in size and probably represents apseudocyst in this patient with the dilated pancreatic duct. 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 No growing mass suggestive of malignancy is demonstrated. Billy Basurto MD RAD CT documented in this encounter Visit Diagnoses Diagnosis IPMN (intraductal papillary mucinous neoplasm) Neoplasm of unspecified nature of digestive system documented in this encounter Administered Medications Inactive Administered Medications - up to 3 most recent administrations Medication Order MAR Action Action Date Dose Rate Site Iopamidol (Isovue 370) inj 80 mL 80 mL, Intravenous, ONCE, On Sat03/04/24 at 1457, For 1 dose, Radiology Medication Routing (Non-IR) Given 03/04/2024 2:57 PM EDT 80 mL documented in this encounter Advance Directives Documents on File Type Date Recorded 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
--- OUTSIDE RECORDS SUMMARY | 2024-08-18 16:28 | External Medical Summary ---
Author Name Unknown Address Unknown Organization K01:[facility] [place] [address] [place] [address] Laboratory Report Ordering Provider Test Date Status REGGIE YUANDariana 03/02/2024 09:48:53 Final Observation Date Value Abnormality Reference (Units ) Status Iron 03/02/2024 09:48:53 60 33-151 (ug/dL) Final Iron-binding capacity 03/02/2024 09:48:53 245 Below low normal 250-425 (ug/dL) Final Transferrin Sat % 03/02/2024 09:48:53 24 15-55 (%) Final Performing Location LABORATORY C - [address] [place] [address]
--- OUTSIDE RECORDS SUMMARY | 2024-08-18 16:28 | External Medical Summary | Summary of Care ---
Author Name Unknown Organization [facility] Address [address] [place] [address] Phone [phone] Care Team Providers Care Automotive Detailer Name Role Phone Amor Pate MD Primary Care Provider [phone] Reason for Visit * Reason Onset Date Comments [facility]: Maintenance 02/26/2024 Encounter Details Date Type Department Care Team (Late st Contact Info) Description 02/26/2024 Telephone [facility], [facility] 132 [facility] [place] [address] [facility], Nurse [facility] 132 [facility] [place] [address] [facility]: Maintenance Allergies No known [...] in the morning. 30 Tablet 07/14/2023 Active Nzjvpoc-Cdfgtsmyl-Ia tamin D ER 600-40-500 MG-MG-UNIT Tablet Extended [...] morning. 45 Tablet 3 12/25/2023 Active Nystatin 418007 UNIT/GM External CreamIndications:Can didal intertrigo Apply topically [...] multicystic lesion of the pancreas CEA, FLUID 93172.0 ng/mL Final COMMENT Final The reference range [...] 06/18/2013 Last Assessment & Plan: S/p pacemaker retirement current use of anticoagulant therapy 0 08/28/2010 [...] does not have a Power of Supervisor Rubber Covering or Advanced Directives in place at this [...] but will need ordered. Phone call to [place] [facility] ([phone]) regarding supplies. Nurse forestry and wildlife manager Alena unavailable to speak with at this time, requests call back. CB to SARITA Carvajal to return call to [facility] regarding supplies. CB from Alena, sumit states nurse will order more supplies when she sees patient next week. Radhaaid to tell patient to have nurse order when she's at patients home and can call if dressings are needed sooner. PC to patient made aware of conversation with HH, patient verbalized understanding. Dai Valentino RN, BSN [facility] slag mixer Navigator documented in this encounter Plan of Treatment Upcoming Encounters Date Type Department Care Team (Late st Contact Info) Description 02/27/2024 6:00 AM EDT Anticoagulation Centralized Clinical Pharmacy Services, [address] [place] [address] [place] [address] 03/02/2024 8:20 AM EDT Laboratory Lab Mobile Phlebotomy [facility] [address] [place] [address] [facility], [facility] Mobile Home Draw [address] [place] [address] 03/04/2024 2:00 PM EDT Appointment Radiology, [facility] [address] [place] [address] Prep, [facility] [address] [place] [address] 03/04/2024 4:00 PM EDT Home Visit [facility] 132 [facility] [place] [address] Allison Young RN [facility] [place] [address] 04/01/2024 3:00 PM EDT Telemedicine [facility], [facility] [place], [place] [address] Kayla Thompson CRNP 132 [facility] [place], [place] [address] Carol Blevins, [facility] Metal Furnace Operator [address] [place] [address] 04/10/2024 11:30 AM EDT Scheduled Telephone [facility], [facility] [address] [facility] [place] [address] Cyndie Hilton, RDN [address] [facility] [place] [address] 04/21/2024 1:00 PM EDT Office Visit Podiatry, [facility] [address] [place] [address] Sydney Castelan, DPModesta [address] [place] [address] 05/05/2024 2:00 PM EDT Office Visit Cardiology, [place] 400 [place] [address] Stephanie Ramos PA-C 400 [place] [address] 05/14/2024 1:20 PM EDT Office Visit Gastroenterology, [facility] [address] [place] [address] Cindy Elena DO 132 [facility] [place], [place] [address] 06/17/2024 11:00 AM EST Telemedicine Hematology/Oncology, [facility] 400 [facility] [place] [address] Billy Basurto MD 400 [place] [phone] 08/18/2024 3:40 PM EST Office Visit Otolaryngology, [place] [address] [place] [address] Hema Hercules PA-C [address] [place] [address] 08/26/2024 5:40 PM EST Office Visit Family [facility], [place] 21 [facility] [place] [phone] Amor Pate MD 21 [facility] [place] [address] 09/10/2024 12:50 PM EST Office Visit Dermatology, Adwoa Green [place] [address] [facility] [address] [place] [address] Marilyn Ozuna PA-C [address] [place] [address] 12/31/2024 1:00 PM EDT Cardiac Studies Cardiology, [place] 400 [facility] [place] [address] [place], Pac[facility] 400 [facility] [place] [address] 02/04/2025 12:00 PM EDT Home Visit Care at Home [address] [place] [address] Carol Mathew PA-C [address] [place] [phone] Scheduled Procedures Name Priority Associated Diagnoses Date/Ti [...] Additional history exists CKD PHOS USE SMARTSET 65304 08/22/202408/05, 08/20/2023, 11/07/2022, Additional history exists Albumin/Creatinine Ratio 12/05/2024 12/06/2023, 03/06 Depression Screening 02/03/2025 02/04/2024, 12/10/19 24 CKD HGB USE SMARTSET 83290 02/16/202502/16, 02/17/2024, 01/03/2024, Additional history exists DXA Scan 04/22/2025 04/22/2023, 04/05, 12/25/2018, Additional history exists Pneumococcal Vaccine: 65+ Years Completed 02/01/2016, 10/27/2002 VITAMIN D LEVEL ONCE IN A LIFETIME-USE SMARTSET# 55754 Completed 09/16/2023, 10/20/2019, 03/11/2012, Additional history exists [...] this encounter Medical Devices Implanted Type Area Bulwark Carpenter Device Identifier Shelf Expiration Date Model / Serial / Lot Implant System, Trim-It Drill Pin [id number](.078" X 4" Implanted:Qty: 1 on 10/10/2017 by Sydney Castelan DPM at OR [facility] Right: Toe 04/04/2019 AR-4152DS / / [id number] Medtronic Attesta Surescan Pacemaker Implanted:Qty: 1 on 06/09/2020 by Chanel Lin DO at OR [facility] Left: Chest 08/01/2021 ATSR01 / [id number] / Nail Gamma3 Left [id number] - [id number] Implanted:Qty: 1 on 01/20/2021 by Alli Townsend MD at OR [facility] Left: Hip MILAN : TRAUMA 12/03/2023 3525-034 0S / / [id number] Screw Lag 10.5x95mm - [id number] Implanted:Qty: 1 on 01/20/2021 by Alli Townsend MD at OR [facility] Left: Hip MILAN : TRAUMA 11/02/2025 3060-009 5S / / [id number] Screw T2 Alpha Lock 5x47.5mm - [id number] Implanted:Qty: 1 on 01/20/2021 by Alli Townsend MD at OR [facility] Left: Hip MILAN : TRAUMA 05/04/2029 2360-504 7S / / [id number] documented as of this encounter Advance Directives Documents on File Type Date Recorded 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
--- OUTSIDE RECORDS SUMMARY | 2024-08-18 16:28 | External Medical Summary ---
Author Name Unknown Address Unknown Organization K1F:LABORATORY [address] [place] [address] Laboratory Report Ordering Provider Test Date Status LUIS YUAN 03/02/2024 09:48:53 Final Observation Date Value Abnormality Reference (Units ) Status WBC, Total 03/02/2024 09:48:53 4.75 4.00-10.80 (K/uL) Final RBC 03/02/2024 09:48:53 3.54 3.85-5.15 (M/uL) Final Hemoglobin 03/02/2024 09:48:53 10.7 Below low normal 12.0-15.3 (g/dL) Final HCT 03/02/2024 09:48:53 34.7 Below low normal 36.0-45.2 (%) Final MCV 03/02/2024 09:48:53 98.0 81.5-97.5 (fL) Final MCH 03/02/2024 09:48:53 30.2 27.0-34.0 (pg) Final MCHC 03/02/2024 09:48:53 30.8 32.0-36.0 (g/dL) Final RDW 03/02/2024 09:48:53 15.2 11.5-15.5 (%) Final Platelets 03/02/2024 09:48:53 125 Below low normal 140-400 (K/uL) Final MPV 03/02/2024 09:48:53 12.7 6.6-11.1 (fL) Final Nucleated erythrocytes/100 leukocytes [Ratio] in Blood by Automated count 03/02/2024 09:48:53 0 <=0 (/100 WBCs) Final Performing Location LABORATORY [facility] - [address] [place] [address]
--- OUTSIDE RECORDS SUMMARY | 2024-08-18 16:28 | External Medical Summary | Summary of Care ---
Author Name Unknown Organization [facility] Address [address] [place] [address] Phone [phone] Care Team Providers Care P D Driver Name Role Phone Amor Pate MD Primary Care Provider [phone] Reason for Visit * Reason Onset Date Comments [facility]: Maintenance 03/04/2024 Encounter Details Date Type Department Care Team (Late st Contact Info) Description 03/04/2024 10:30 AM EDT Scheduled Telephone [facility], [facility] 132 [facility] [place] [address] Coordinator, [facility] 132 [facility] [place] [address] Allergies No known active allergiesdocumented as of this encounter (statuses as of 03/04/2024) Medications Medication Sig Dispensed Refills Start Date [...] in the morning. 30 Tablet 07/14/2023 Active Mtuttvm-Rhzuydaak-Bd tamin D ER 600-40-500 MG-MG-UNIT Tablet Extended [...] morning. 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 Based on 12/12/2015 EUS/pat, per Dr Elean, pt will need follow-up CT of the [...] multicystic lesion of the pancreas CEA, FLUID 61158.0 ng/mL Final COMMENT Final The reference range [...] 06/18/2013 Last Assessment & Plan: S/p pacemaker MCFP current use of anticoagulant therapy 0 08/28/2010 [...] patient does not have a Power of Assistant Professor In Family Studies or Advanced Directives in place at this [...] as of this encounter (statuses as of 03/04/2024) Resolved Problems Problem Noted Date Diagnosed Date [...] as of this encounter (statuses as of 03/04/2024) Immunizations Name Administration Dates Next Due COVID-19 [...] Telephone Encounter - Kadie Tellez RN - 03/04/2024 10:08 AM EDT [facility] Telephonic Nurse Follow-Up Call [facility] Subprogram: Focused Care Management (3-9 months) Follow Up Call Type: Routine follow up call / Status Check Acute issue requiring follow-up call: Other: comprehensive assessment Objective: 02/12/2024 2:38 PM 02/07/2024 9:51 AM 02/04/2024 4:38 PM 01/22/2024 4:17 PM 01/03/2024 9:20 PM VITALS ACROSS ENCOUNTERS BP 114/62 122/80 110/60 130/67 Pulse 61 66 60 66 Weight 67.1 kg BMI 23.9 BMI 23.9 kg/m2 Remote Patient Monitoring: NONE Oxygen Needs: NO supplemental oxygen needs identified DME Needs: NO DME needs identified Medications: Was bottles out med rec completed ? Y If no, why? Does pt need any refills on medications?no No medication or dose adjustments made during acute episode Subjective: Condition Status: patient is at her baseline and is agreeable to a phone assessment today in place of a home visit. Current Concerns: Patient denies any acute concerns/urgent needs today. Feels she is at her baseline. Continues to receive home health shelter visits 1-2 times a week for wound assessment/wound care. Per pt report, her home health nurse reports measurements are decreasing and wound is healing. Denies any recent falls. Wts stable. Weight yesterday was 150 lbs on her home scale. Denies increase in edema or sob. 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 Uses an occasional tylenol for pain which is effective. Wt Readings from Last 8 Encounters: 02/12/24 67.1 kg (148 lb) 12/10/23 68.1 kg (150 lb 3.2 oz) 11/18/23 68 kg (150 lb) 11/04/23 68.9 kg (152 lb) 08/21/23 67.7 kg (149 lb 4 oz) 07/14/23 65.7 kg (144 lb 13.5 oz) 04/29/23 65.9 kg (145 lb 3.2 oz) 04/16/23 65.8 kg (145 lb) HPI: Constitutional: no weight loss, no weakness, and no fatigue Resp: no cough, no sputum, no wheezing, and no SOB Cardiac: no chest pain, no orthopnea, and no dyspnea on exertion GI: no pain, no heartburn, no diarrhea, no constipation Musculoskeletal: no swelling and + joint pain of left knee Neuro: no memory loss, no weakness, and no falling Education Provided: Educated on home safety: Create a fall proof home Clear floors of clutter, loose wires, throw rugs, and cords. Make sure halls, stairways, and entrances are well lit. Install a nightlight in your bedroom, hallway and bathroom. Install grab bars or handrails in the bathroom and on stairs. Use a non-skid tub/shower mat. Avoid climbing on a chair; instead use a step stool with a high handrail. Keep sidewalks and steps in good repair Keep steps and sidewalks free of snow and ice. Using aids to support and prevent falls If you have poor balance or have fallen in the past, consider additional support such as a cane or walker. Use a cane with good support and that is the proper length for you. Use a walker if a cane doesnt provide enough support. Avoid medications that increase the risk of falling by causing dizziness, change in sensation or slowed reflexes. Certain medicines may cause falls - blood pressure pills, heart medicines, water pills, or sleepingpills. Be sure to understand each medicine that you are taking and any side effects that may occur. Improve your balance and flexibility with muscle strengthening exercises. Ask your health care provider for some exercises that will be right for you. Disposition: Issue resolved. All appropriate follow up scheduled. Pt scheduled to see provider in one month, RNCM in 8 weeks or sooner if needed. Future Visits Scheduled: Future Appointments-next 60 days Date/Time Provider Specialty Dept Phone 03/04/2024 2:00 PM Prep, [facility] Ct; [facility] Radiology [phone] 03/04/2024 4:00 PM Allison Young RN [facility] [phone] 03/11/2024 8:00 AM [facility], [facility] Mobile Home Draw Laboratory Processing [phone] 03/12/2024 6:00 AM [facility] [phone] 04/01/2024 3:00 PM Carol Blevins, Community Health Programming Director; Kayla Thompson CRNP [facility] [phone] 04/10/2024 11:30 AM Cyndie Hilton RDN [facility] [phone] 04/21/2024 1:00 PM (Arrive by 12:45 PM) Sydney Castelan DPM Podiatry [phone] 05/05/2024 2:00 PM (Arrive by 1:45 PM) Stephanie Ramos PA-C Cardiology [phone] 05/14/2024 1:20 PM (Arrive by 1:05 PM) Cindy Elena DO Gastroenterology [phone] 06/17/2024 11:00 AM Billy Basurto MD Hematology Oncology [phone] 08/18/2024 3:40 PM (Arrive by 3:25 PM) Hema Hercules PA-C Otolaryngology [phone] 08/26/2024 5:40 PM (Arrive by 5:25 PM) Amor Pate MD Family Medicine [phone] 09/10/2024 12:50 PM (Arrive by 12:35 PM) Marilyn Ozuna PA-C Dermatology [phone] 12/31/2024 1:00 PM (Arrive by 12:45 PM) [facility] [phone] 02/04/2025 12:00 PM Carol Mathew PA-C Family Medicine [phone] Kadie Tellez, REGINA documented in this encounter Plan of Treatment Upcoming Encounters Date Type Department Care Team (Late st Contact Info) Description 03/04/2024 2:00 PM EDT Hospital Encounter Radiology, [facility] [address] [place] [address] Prep, [facility] [address] [place] [address] 03/11/2024 8:00 AM EDT Laboratory Lab Mobile Phlebotomy [facility] [address] [place] [address] [facility], [facility] Mobile Home Draw [address] [place] [address] 03/12/2024 6:00 AM EDT Anticoagulation Centralized Clinical Pharmacy Services, Derrek Denton [address] [place] [address] [place] [address] [place] [address] 04/01/2024 3:00 PM EDT Telemedicine [facility], [facility] [address] Kayla Thompson CRNP [address] [place] [address] Carol Blevins, Community Health Programming Director [address] [place] [address] 04/10/2024 11:30 AM EDT Scheduled Telephone [facility], [facility] [address] [facility] [place] [address] Cyndie Hilton, RDN [address] [facility] [place] [address] 04/20/2024 4:00 PM EDT Home Visit [facility], [facility] 132 [facility] [place] [address] Allison Young RN 132 [place] [address] 04/21/2024 1:00 PM EDT Office Visit Podiatry, [address] [address] Sydney Castelan DPM [address] [place] [address] 05/05/2024 2:00 PM EDT Office Visit Cardiology, [address] [place] [address] Stephanie Ramos PA-C [address] [place] [address] 05/14/2024 1:20 PM EDT Office [facility], [facility] [address] [place] [phone] Cindy Elena, DO [address] [place] [address] 06/17/2024 11:00 AM EST Telemedicine Hematology/Oncology, [facility] 400 [facility] [place] [address] Billy Basurto MD 400 [facility] [phone] 08/18/2024 3:40 PM EST Office Visit Otolaryngology, [place] [address] [place] [address] Hema Hercules PA-C [address] [place] [address] 08/26/2024 5:40 PM EST Office Visit Family [facility], [place] [address] [place] [phone] Amor Pate MD 21 [facility] [place] [address] 09/10/2024 12:50 PM EST Office Visit Dermatology, [place] [address] [facility] 140 [place] [address] Marilyn Ozuna PA-C 27 [place] [address] 12/31/2024 1:00 PM EDT Cardiac Studies Cardiology, [place] 400 [facility] [place] [address] [place], [facility] 400 [facility] [place] [address] 02/04/2025 12:00 PM EDT Home Visit Care at Home [address] [place], [place] [phone] Carol Mathew PA-C [address] [place] [address] Scheduled Procedures Name Priority Associated Diagnoses Date/Ti [...] Additional history exists CKD PHOS USE SMARTSET 29228 08/22/202408/05, 08/20/2023, 11/07/2022, Additional history exists Albumin/Creatinine Ratio 12/05/2024 12/06/2023, 03/06 Depression Screening 02/03/2025 02/04/2024, 12/10/19 24 CKD HGB USE SMARTSET 68595 03/02/202503/02, 03/02/2024, 02/17/2024, Additional history exists DXA Scan 04/22/2025 04/22/2023, 04/05, 12/25/2018, Additional history exists Pneumococcal Vaccine: 65+ Years Completed 02/01/2016, 10/27/2002 VITAMIN D LEVEL ONCE IN A LIFETIME-USE SMARTSET# 18530 Completed 09/16/2023, 10/20/2019, 03/11/2012, Additional history exists [...] this encounter Medical Devices Implanted Type Area X Ray Service Technician Device Identifier Shelf Expiration Date Model / Serial / Lot Implant System, Trim-It Drill Pin [id number]" X 4" Implanted:Qty: 1 on 10/10/2017 by Sydney Castelan DPM at OR [facility] Right: Toe 04/04/2019 AR-[id number] / / [id number] Medtronic Attesta Surescan Pacemaker Implanted:Qty: 1 on 06/09/2020 by Chanel Lin DO at OR [facility] Left: Chest 08/01/2021 ATSR01 / [id number] / Nail [id number] Left [id number] - [id number] Implanted:Qty: 1 on 01/20/2021 by Alli Townsend MD at OR [facility] Left: Hip MILAN : TRAUMA 12/03/2023 3525-034 0S / / [id number] Screw Lag 10.5x95mm - [id number] Implanted:Qty: 1 on 01/20/2021 by Alli Townsend MD at OR [facility] Left: Hip MILAN : TRAUMA 11/02/2025 3060-009 5S / / [id number] Screw T2 Alpha Lock 5x47.5mm - [id number] Implanted:Qty: 1 on 01/20/2021 by Alli Townsend MD at OR [facility] Left: Hip MILAN : TRAUMA 05/04/2029 2360-504 7S / / [id number] documented as of this encounter Advance Directives Documents on File Type Date Recorded Patient Ammonia Box Operator Expl anation POLST 07/15/2023 [place] [facility]AT[facility] [...] First Alternate Health Care Agent Care Teams P D Driver Relationship Specialty Start Date End Date Amor Pate MD 21 [place] [phone] PCP - General Family Medicine 12/06/22 documented as of this encounter
--- OUTSIDE RECORDS SUMMARY | 2024-08-18 16:28 | External Medical Summary ---
Author Name Unknown Address Unknown Organization K1F:[facility]ORY [facility] - [address] [facility] [place] [address] Laboratory Report Ordering Provider Test Date Status LUIS YUAN 03/02/2024 09:50:50 Final Observation Date Value Abnormality Reference (Units ) Status BUN 03/02/2024 09:50:50 18 6-20 (mg/dL) Final Creatinine 03/02/2024 09:50:50 0.8 0.5-1.0 (mg/dL) Final Glomerular filtration rate/1.73 sq M.predicted [Volume Rate/Area] in Serum, Plasma or Blood by Creatinine-based formula (CKD-EPI) 03/02/2024 09:50:50 68 >=60 (mL/min) Final eGFR is calculated based on the CKD-EPI 2020 equation. Sodium 03/02/2024 09:50:50 145 135-146 (m mol/L) Final Potassium 03/02/2024 09:50:50 4.2 3.5-5.1 (m mol/L) Final Cl 03/02/2024 09:50:50 107 98-107 (mm ol/L) Final CO2 03/02/2024 09:50:50 29 22-32 (mmo l/L) Final Anion gap 03/02/2024 09:50:50 9 7-15 (mmol /L) Final Glucose 03/02/2024 09:50:50 78 70-120 (mg /dL) Final Albumin 03/02/2024 09:50:50 3.8 3.8-5.0 (g /dL) Final AST (Aspartate aminotransferase) 03/02/2024 09:50:50 20 10-35 (U/L) Fin al Alk Phos 03/02/2024 09:50:50 79 35-130 (U/ L) Final Bilirubin, Total 03/02/2024 09:50:50 0.4 <=1 .2 (mg/dL) Final Calcium 03/02/2024 09:50:50 9.1 8.4-10.2 ( mg/dL) Final Protein 03/02/2024 09:50:50 5.7 Below low normal 6.0 -8.3 (g/dL) Final ALT (Alanine aminotransferase) 03/02/2024 09:50:50 12 10-35 (U/L) Stalin alanis Performing Location [facility]ORATORY [facility] - [address] [place], [place] [address]alfonso Kay. [place] [address]
--- OUTSIDE RECORDS SUMMARY | 2024-08-18 16:28 | External Medical Summary | Summary of Care ---
Author Name Unknown Organization [facility] Address [address] [place] [address] Phone [phone] Care Team Providers Care Psychological Operations Name Role Phone Amor Pate MD Primary Care Provider [phone] Reason for Visit * Reason Comments Dosage Adjustment Via Phone (anticoag Cl inic) Encounter Details Date Type Department Care Team (Late st Contact Info) Description 02/27/2024 6:00 AM EDT Anticoagulation Centralized Clinical Pharmacy Services, Derrek Denton [address] [place] [address] [place] [address] [place] [address] intermediate current use of anticoagulant therapy* Allergies No known active allergiesdocumented as of this encounter (statuses as of 02/27/2024) Medications Medication Sig Dispensed Refills Start Date [...] in the morning. 30 Tablet 07/14/2023 Active Crrwozy-Drqzaoyeq-Ol tamin D ER 600-40-500 MG-MG-UNIT Tablet Extended [...] morning. 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 Apply topically [...] as of this encounter (statuses as of 02/27/2024) Active Problems Problem Noted Date Diagnosed Date [...] multicystic lesion of the pancreas CEA, FLUID 71760.0 ng/mL Final COMMENT Final The reference range [...] patient does not have a Power of Squad Leader or Advanced Directives in place at this [...] as of this encounter (statuses as of 02/27/2024) Resolved Problems Problem Noted Date Diagnosed Date [...] as of this encounter (statuses as of 02/27/2024) Immunizations Name Administration Dates Next Due COVID-19 [...] as of this encounter Progress Notes * Odalis Castano PHARM Tech - 02/27/2024 9:58 AM EDT Contacts Type Contact Phone/Fax 02/27/2024 09:55 AM EDT Phone (Outgoing) Zulma Villar (Self) [phone] (H) Subjective Patient Findings Negatives: Signs/symptoms of [...] communicated as noted by Pharmacist: Yes JAH JASMINE 02/27/2024, 9:58 AM * Nena Hopkins RPh - 02/27/2024 9:06 AM EDT Coumadin Clinic (region specific) Objective Current Warfarin Dose As of 02/27/2024 Warfarin maintenance plan: 4 mg (2 mg x 2) every Fri; 2 mg (2 mg x 1) all other days INR Result As of 02/27/2024 INR goal: 2.0-3.0 INR used for dosin.1 (02/26/2024) Assessment & Plan Warfarin Plan As of 02/27/2024 Full warfarin instructions: 4 mg every Fri; 2 mg all other days No change documented: Nena Hopkins RPh Next INR check: 03/11/2024 Repeat PT/INR in 2 week(s) Weekly dose: not changed Additional Dosing Information: Description [facility] [place] [facility] fax [phone] Boost- 1/day Tech to contact patient with dose instructions as noted. Nena Hopkins RPh 02/27/2024, 9:06 AM documented in this encounter Plan of Treatment Upcoming Encounters Date Type Department Care Team (Late st Contact Info) Description 03/02/2024 8:20 AM EDT Laboratory Lab Mobile Phlebotomy [facility] 400 [facility] [address] [facility], [facility] Mobile Home Draw 400 [facility] [place] [address] 03/04/2024 2:00 PM EDT Appointment Radiology, [facility] 400 [facility] [place] [address] Prep, [facility] [address] 400 [facility] [address] 03/04/2024 4:00 PM EDT Home Visit [facility], [facility] 132 [place] [address] Allison Young RN 132 [place] [address] 03/12/2024 6:00 AM EDT Anticoagulation Centralized Clinical Pharmacy Services, Derrek Denton [address] [place] [address] [place] [address] Ccps, [address] [place] [address] 04/01/2024 3:00 PM EDT Telemedicine [facility], [facility] 132 [facility] [place] [address] Kayla Thompson CRNP 132 [place] [address] Carol Blevins, Community Health Coloring Checker [address] [place] [address] 04/10/2024 11:30 AM EDT Scheduled Telephone [facility], [facility] [address] [facility] [place] [address] Cyndie Hilton, TEMON 1000 [address] [facility] [place] [address] 04/21/2024 1:00 PM EDT Office Visit Podiatry, [facility] 400 [facility] [place] [address] Sydney Castelan, [facility] 400 [facility] [address] 05/05/2024 2:00 PM EDT Office Visit Cardiology, [address] [address] Stephanie Ramos PA-C [facility] [place] [address] 05/14/2024 1:20 PM EDT Office Visit Gastroenterology, [place] [address] [place] [phone] Cindy Elena, DO [address] [place] [address] 06/17/2024 11:00 AM EST Telemedicine Hematology/Oncology, [facility] 400 [facility] [place] [address] Billy Basurto MD 400 [facility] [phone] 08/18/2024 3:40 PM EST Office Visit Otolaryngology, [place] [place] [address] [place] [address] Hema Hercules PA-C [address] [place] [address] 08/26/2024 5:40 PM EST Office Visit Family [facility], [place] 21 [facility] [place] [phone] Amor Pate MD 21 [facility] [place] [address] 09/10/2024 12:50 PM EST Office Visit Dermatology, [place] GreenMeryl[place] [address] [facility] 140 [place] [address] Marilyn Ozuna PA-C [address] [place] [address] 12/31/2024 1:00 PM EDT Cardiac Studies Cardiology, [place] [address] [place] [address] [facility] [address] [place] [address] 02/04/2025 12:00 PM EDT Home Visit [facility] at Home [address] [place], [place] [id number] Carol Mathew PA-C [address] [place] [address] Scheduled Procedures Name Priority Associated Diagnoses Date/Ti [...] Additional history exists CKD PHOS USE SMARTSET 72302 08/22/202408/05, 08/20/2023, 11/07/2022, Additional history exists Albumin/Creatinine Ratio 12/05/2024 12/06/2023, 03/06 Depression Screening 02/03/2025 02/04/2024, 12/10/19 24 CKD HGB USE SMARTSET 16382 02/16/202502/16, 02/17/2024, 01/03/2024, Additional history exists DXA Scan 04/22/2025 04/22/2023, 04/05, 12/25/2018, Additional history exists Pneumococcal Vaccine: 65+ Years Completed 02/01/2016, 10/27/2002 VITAMIN D LEVEL ONCE IN A LIFETIME-USE SMARTSET# 96325 Completed 09/16/2023, 10/20/2019, 03/11/2012, Additional history exists [...] this encounter Medical Devices Implanted Type Area Treasury Analyst Device Identifier Shelf Expiration Date Model / Serial / Lot Implant System, Trim-It Drill Pin [id number](.078" X 4" Implanted:Qty: 1 on 10/10/2017 by Sydney Castelan DPM at OR [facility] Right: Toe 04/04/2019 AR-4152DS / / [id number] Medtronic Attesta Surescan Pacemaker Implanted:Qty: 1 on 06/09/2020 by Chanel Lin DO at OR [facility] Left: Chest 08/01/2021 ATSR01 / [id number] / Nail Gamma3 Left [id number] - [id number] Implanted:Qty: 1 on 01/20/2021 by Alli Townsend MD at OR [facility] Left: Hip MILAN : TRAUMA 12/03/2023 3525-034 0S / / [id number] Screw Lag 10.5x95mm - [id number] Implanted:Qty: 1 on 01/20/2021 by Alli Townsend MD at OR [facility] Left: Hip MILAN : TRAUMA 11/02/2025 3060-009 5S / / [id number] Screw T2 Alpha Lock 5x47.5mm - [id number] Implanted:Qty: 1 on 01/20/2021 by Alli Townsend MD at OR [facility] Left: Hip MILAN : TRAUMA 05/04/2029 2360-504 7S / / [id number] documented as of this encounter Visit Diagnoses Diagnosis intermediate current use of anticoagulant therapy- Primary documented in this encounter Advance Directives Documents on File Type Date Recorded Patient Boiler Room Helper Raman OLIVO 07/15/2023 [place] [facility] [...] First Alternate Health Care Agent Care Teams Psychological Operations Relationship Specialty Start Date End Date Amor Pate MD 21 [place] [phone] PCP - General Family Medicine 12/06/22 documented as of this encounter
--- OUTSIDE RECORDS SUMMARY | 2024-08-18 16:28 | External Medical Summary | Summary of Care ---
Author Name Unknown Organization [facility] Address [address] [place] [address] Phone [phone] Care Team Providers Care Cement Mixer Name Role Phone Amor Pate MD Primary Care Provider [phone] Encounter Details Date Type Department Care Team (Late st Contact Info) Description 03/09/2024 Documentation Cardiology, [address] [id number] Yady Arriaza RN Allergies No known active allergiesdocumented as of this encounter (statuses as of 03/09/2024) Medications Medication Sig Dispensed Refills Start Date [...] in the morning. 30 Tablet 07/14/2023 Active Tbwtsmh-Dzkhameel-Qh tamin D ER 600-40-500 MG-MG-UNIT Tablet Extended [...] morning. 45 Tablet 3 12/25/2023 Active Nystatin 241777 UNIT/GM External CreamIndications:Can didal intertrigo Apply topically [...] as of this encounter (statuses as of 03/09/2024) Active Problems Problem Noted Date Diagnosed Date [...] multicystic lesion of the pancreas CEA, FLUID 76578.0 ng/mL Final COMMENT Final The reference range [...] 06/18/2013 Last Assessment & Plan: S/p pacemaker director long term care current use of anticoagulant [...] patient does not have a Power of Carton Stapler or Advanced Directives in place at this [...] as of this encounter (statuses as of 03/09/2024) Resolved Problems Problem Noted Date Diagnosed Date [...] as of this encounter (statuses as of 03/09/2024) Immunizations Name Administration Dates Next Due COVID-19 mRNA, LNP-s, No Pre serve, 2-Dose Series ([employer]) 10/26/2020,09/30/2020 Pneumococcal Conjugate Vacc, 13 Valent (Prevnar) [...] Progress Notes * Yady Arriaza RN - 03/09/2024 2:02 PM EDT Patient is scheduled for a remote monitoring pacer check. It has not arrived. Patient contacted. They were ask to send a manual transmission. Yady Arriaza RN documented in this encounter Plan of Treatment Upcoming Encounters Date Type Department Care Team (Late st Contact Info) Description 03/11/2024 8:00 AM EDT Laboratory Lab Mobile Phlebotomy [facility] [address] [address] [facility], [facility] Mobile Home Draw [address] [address] 03/12/2024 6:00 AM EDT Anticoagulation Centralized Clinical Pharmacy Services, Derrek Denton [address] [place] [address] [place] Rosenbaum [phone] Ccps, [facility] [address] [place] [address] 04/01/2024 3:00 PM EDT Telemedicine [facility], [facility] [address] [place] [address] Kayla Thompson CRNP [address] [place] [address] Carol Blevins, Community Health Robot Programmer [address] [place] [address] 04/10/2024 11:30 AM EDT Scheduled Telephone [facility], [facility] [address] [facility] [place] Sifuentes [address] Cyndie Hilton, TEMON [address] [facility] [place] SIFUENTES [address] 04/20/2024 4:00 PM EDT Home Visit [facility], [facility] 132 [facility] [place] [address] Allison Young, RN 132 [place] [address] 04/21/2024 1:00 PM EDT Office Visit Podiatry, [facility] 400 [facility] [place] [address] Sydney Castelan, [facility] 400 [facility] [address] 05/05/2024 2:00 PM EDT Office Visit Cardiology, [address] [place] [address] Stephanie Ramos PAVonda 400 [facility] [address] 05/14/2024 1:20 PM EDT Office Visit Gastroenterology, [facility] [place] [address] [place] [phone] Cindy Elena, DO [address] [place] [address] 06/17/2024 11:00 AM EST Telemedicine Hematology/Oncology, [facility] 400 [facility] [place] MARTINEZ [address] Billy Basurto MD 400 [facility] [place] [phone] 08/18/2024 3:40 PM EST Office Visit Otolaryngology, [place] [address] [place] [address] Hema Hercules PA-C [address] [place] [address] 08/26/2024 5:40 PM EST Office Visit Family [facility], [place] [facility] [phone] Amor Pate MD 21 [facility] [place]re [address] 09/10/2024 12:50 PM EST Office Visit Dermatology, [place] Meryl Greenwn [address] [facility] [address] [place] [address] Marilyn Ozuna PA-C [address] [place] [address] 12/31/2024 1:00 PM EDT Cardiac Studies Cardiology, [place] 400 [facility] [place] [address] [place], [facility] [address] [place] Kumar [address] 02/04/2025 12:00 PM EDT Home Visit Care at Home [address] [place] [facility] [place] [address] Carol Mathew PA-C [address] [facility] [place] [place] [id number] Scheduled Procedures Name Priority Associated Diagnoses Date/Ti [...] Additional history exists CKD PHOS USE SMARTSET 13812 08/22/202408/05, 08/20/2023, 11/07/2022, Additional history exists Albumin/Creatinine Ratio 12/05/2024 12/06/2023, 03/06 Depression Screening 02/03/2025 02/04/2024, 12/10/19 24 CKD HGB USE SMARTSET 10851 03/02/202503/02, 03/02/2024, 02/17/2024, Additional history exists DXA Scan 04/22/2025 04/22/2023, 04/05, 12/25/2018, Additional history exists Pneumococcal Vaccine: 65+ Years Completed 02/01/2016, 10/27/2002 VITAMIN D LEVEL ONCE IN A LIFETIME-USE SMARTSET# 26002 Completed 09/16/2023, 10/20/2019, 03/11/2012, Additional history exists [...] this encounter Medical Devices Implanted Type Area Content Designer Device Identifier Shelf Expiration Date Model / Serial / Lot Implant System, Trim-It Drill Pin [id number](.078" X 4" Implanted:Qty: 1 on 10/10/2017 by Sydney Castelan DPM at OR [facility] Right: Toe 04/04/2019 AR-[id number] / / [id number] Medtronic Attesta Surescan Pacemaker Implanted:Qty: 1 on 06/09/2020 by Chanel Lin DO at OR [facility] Left: Chest 08/01/2021 ATSR01 / [id number] / Nail Gamma3 Left [id number] - [id number] Implanted:Qty: 1 on 01/20/2021 by Alli Townsend MD at OR [facility] Left: Hip MILAN : TRAUMA 12/03/2023 3525-034 0S / / [id number] Screw Lag 10.5x95mm - [id number] Implanted:Qty: 1 on 01/20/2021 by Alli Townsend MD at OR [facility] Left: Hip MILAN : TRAUMA 11/02/2025 3060-009 5S / / [id number] Screw T2 Alpha Lock 5x47.5mm - [id number] Implanted:Qty: 1 on 01/20/2021 by Alli Townsend MD at OR [facility] Left: Hip MILAN : TRAUMA 05/04/2029 2360-504 7S / / [id number] documented as of this encounter Advance Directives Documents on File Type Date Recorded Patient Software Asset Manager Raman OLIVO 07/15/2023 [place] OR [facility] FOR LIFE-SUSTAINING TREATMENT * Full [...] First Alternate Health Care Agent Care Teams Cement Mixer Relationship Specialty Start Date End Date Amor Pate MD [address] [place] [place] [address] PCP - General Family Medicine 12/06/22 documented as of this encounter
--- OUTSIDE RECORDS SUMMARY | 2024-08-18 16:28 | External Medical Summary ---
Author Name Unknown Address Unknown Organization K1F:[facility] - [address] [facility] [place]INGH [address] Laboratory Report Ordering Provider Test Date Status LUIS YUAN 03/02/2024 09:48:53 Final Observation Date Value Abnormality Reference (Units ) Status SYNC LEUKOCYTES IN BLOOD BY AUTOMATED COUNT 03/02/2024 09:48:53 4.75 4.00-10.80 (K/uL) Final Segs 03/02/2024 09:48:53 51.3 40.0-75.0 (%) Final Lymphs % 03/02/2024 09:48:53 34.5 18.0-42.0 (%) Final Monos 03/02/2024 09:48:53 10.9 1.0-11.0 (%) Final Eosinophils 03/02/2024 09:48:53 2.7 0.0-6.0 (%) Final Basos 03/02/2024 09:48:53 0.4 0.0-2.0 (%) Final Immature Granulocyte, Percent 03/02/2024 09:48:53 0.2 0.0-2.0 (%) Final Absolute Segs 03/02/2024 09:48:53 2.43 1.80-7.70 (K/uL) Final Lymphs, absolute 03/02/2024 09:48:53 1.64 1.00-4.80 (K/ul) Final Monos, Abs 03/02/2024 09:48:53 0.52 0.00-1.10 (K/uL) Final Eos, Abs 03/02/2024 09:48:53 0.13 0.00-0.70 (K/uL) Final Basos, Abs 03/02/2024 09:48:53 0.02 0.00-0.20 (K/uL) Final Immature Granulocytes, Number 03/02/2024 09:48:53 0.01 0.00-0.20 (K/uL) Final Performing Location [facility] - [facility] Isidoro Kay. [place]H [address]
--- OUTSIDE RECORDS SUMMARY | 2024-08-18 16:29 | External Medical Summary | Summary of Care ---
Author Name Unknown Organization [facility] Address [address] [place] [address] Phone [phone] Care Team Providers Care Edge Setter Name Role Phone Amor Pate MD Primary Care Provider [phone] Reason for Visit * Reason Onset Date Comments [facility]: Maintenance 02/26/2024 Encounter Details Date Type Department Care Team (Late st Contact Info) Description 02/26/2024 Telephone [facility], [facility] 132 [facility] [place] RYAN [address] [facility], Nurse [facility] 132 [facility] [place] RYAN [address] [facility]: Maintenance Allergies No known [...] in the morning. 30 Tablet 07/14/2023 Active Yxwlwie-Irlzxzfvq-Yi tamin D ER 600-40-500 MG-MG-UNIT Tablet Extended [...] morning. 45 Tablet 3 12/25/2023 Active Nystatin 481736 UNIT/GM External CreamIndications:Can didal intertrigo Apply topically [...] multicystic lesion of the pancreas CEA, FLUID 65130.0 ng/mL Final COMMENT Final The reference range [...] patient does not have a Power of 3D Animator or Advanced Directives in place at this [...] she is using dressing on back of [facility] at [facility]. nurse was there 1-2 days ago and left patient a dressing. The brand is [employer] hydrocellular foam dressings 3in x 3in. Patient is unclear on whether [facility] or is ordering dressings. Patient called back said she found a box of 6 more dressings so it is not an emergency but will need ordered. Phone call to Francisco MATUTE ([phone]) regarding supplies. Nurse market research senior project manager Alena unavailable to speak with at this time, requests call back. Dai Valentino RN, BSN [facility] busgirl Navigator documented in this encounter Plan of Treatment Upcoming Encounters Date Type Department Care Team (Late st Contact Info) Description 02/27/2024 6:00 AM EDT Anticoagulation Centralized Clinical Pharmacy Services, [address] [place] [address] [place] [address] 03/02/2024 8:20 AM EDT Laboratory Lab Mobile Phlebotomy [facility] [address] [place] [address] [facility], [facility] Mobile Home Draw [address] [place] [address] 03/04/2024 2:00 PM EDT Appointment Radiology, [facility] [address] [place] [address] Prep, [facility] [address] [place] [address] 03/04/2024 4:00 PM EDT [facility] Visit [facility] [place], [facility] 132 [place] [address] Allison Young RN 132 [place] [address] 04/01/2024 3:00 PM EDT Telemedicine [facility] [place], [facility] 132 [facility] [place] [address] Kayla Thompson CRNP 132 [place] [address] Carol Blevins, Community Health Human Resource Advisor [address] [place] [address] 04/10/2024 11:30 AM EDT Scheduled Telephone [facility], [facility] [address] [facility] [address] Cyndie Hilton, RDN [address] [facility] [place] SIFUENTES [address] 04/21/2024 1:00 PM EDT Office Visit Podiatry, [address] [address] Sydney Castelan, DPModesta [address] [place] [address] 05/05/2024 2:00 PM EDT Office Visit Cardiology, [address] [address] Stephanie Ramos PA-C [address] [place] [address] 05/14/2024 1:20 PM EDT Office Visit Gastroenterology, [facility] [address] [place] [phone] Cindy Elena, DO 132 [facility] [place] [address] 06/17/2024 11:00 AM EST Telemedicine Hematology/Oncology, [address] [address] Billy Basurto MD [address] [place] [phone] 08/18/2024 3:40 PM EST Office Visit Otolaryngology, [place] [address] [place] [address] Hema Hercules PA-C [address] [place] [address] 08/26/2024 5:40 PM EST Office Visit [facility], [place] [address] [phone] Amor Pate MD [address] [place] [address] 09/10/2024 12:50 PM EST Office Visit Dermatology, [place] [address] [place] [address] [place] [address] Marilyn Ozuna PA-C [address] [place] [address] 12/31/2024 1:00 PM EDT Cardiac Studies Cardiology, [place] 400 [facility] [place] [address] [place], Pacer [facility] 400 [facility] [place] [address] 02/04/2025 12:00 PM EDT Home Visit Care at Home [address] [place], [place] [phone] Carol Mathew PA-C [address] [place], [place] [phone] Scheduled Procedures Name Priority Associated Diagnoses Date/Ti [...] Additional history exists CKD PHOS USE SMARTSET 74029 08/22/202408/05, 08/20/2023, 11/07/2022, Additional history exists Albumin/Creatinine Ratio 12/05/2024 12/06/2023, 03/06 Depression Screening 02/03/2025 02/04/2024, 12/10/19 CKD HGB USE SMARTSET 19430 02/16/202502/16, 02/17/2024, 01/03/2024, Additional history exists DXA Scan 04/22/2025 04/22/2023, 04/05, 12/25/2018, Additional history exists Pneumococcal Vaccine: 65+ Years Completed 02/01/2016, 10/27/2002 VITAMIN D LEVEL ONCE IN A LIFETIME-USE SMARTSET# 36770 Completed 09/16/2023, 10/20/2019, 03/11/2012, Additional history exists [...] this encounter Medical Devices Implanted Type Area Production Maintenance Mechanic Device Identifier Shelf Expiration Date Model / Serial / Lot Implant System, Trim-It Drill Pin [id number](.078" X 4" Implanted:Qty: 1 on 10/10/2017 by Sydney Catselan DPM at OR [facility] Right: Toe 04/04/2019 AR-[id number] / / [id number] Medtronic Attesta Surescan Pacemaker Implanted:Qty: 1 on 06/09/2020 by Chanel Lin DO at OR [facility] Left: Chest 08/01/2021 ATSR01 / [id number] / Nail Gamma3 Left [id number] - [id number] Implanted:Qty: 1 on 01/20/2021 by Alli Townsend MD at OR [facility] Left: Hip MILAN : TRAUMA 12/03/2023 3525-034 0S / / [id number] Screw Lag 10.5x95mm - [id number] Implanted:Qty: 1 on 01/20/2021 by Alli Townsend MD at OR [facility] Left: Hip MILAN : TRAUMA 11/02/2025 3060-009 5S / / [id number] Screw T2 Alpha Lock 5x47.5mm - [id number] Implanted:Qty: 1 on 01/20/2021 by Alli Townsend MD at OR [facility] Left: Hip MILAN : TRAUMA 05/04/2029 2360-504 7S / / [id number] documented as of this encounter Advance Directives Documents on File Type Date Recorded Patient Housing Manager Expl shasha POL 07/15/2023 [place] OR [facility] FOR LIFE-SUSTAINING TREATMENT * Full [...] First Alternate Health Care Agent Care Teams Edge Setter Relationship Specialty Start Date End Date Amor Pate MD 21 [place] [phone] PCP - General Family Medicine 12/06/22 documented as of this encounter
--- OUTSIDE RECORDS SUMMARY | 2024-08-18 16:29 | External Medical Summary | Summary of Care ---
Author Name Unknown Organization [facility] Address [address] [place] [address] Phone [phone] Care Team Providers Care Service Operations Manager Name Role Phone Amor Pate MD Primary Care Provider [phone] Reason for Referral * Evaluate & Treat - Unlimited Visits (Within 30 days (routine)) - Authorized Specialty Diagnoses / Procedures Referred By Robyn rodríguez Referred To Contact HOME CARE / Home Care Diagnoses Pressure injury of buttock, stage 3, unspecified laterality (HCC) Ambulatory dysfunction Type 2 diabetes mellitus with stage 3a chronic kidney disease, without long-term current use of insulin (HCC) Generalized weakness Amor Pate MD [address] [place] [address] Referral ID Status Reason Start Date Expiration Date Visits Requested Visits Authorized [id number] Authorized Specialty Services Required 02/26/2024 999 999 Question Answer Referral Priority Within 30 days (routine) Where should this appointment be scheduled? External Comments Documentation of Ggml-pe-Gnok Encounter Addendum Patient Name: Zulma Villar I certify that this patient is under my care and that I, or a nurse practitioner or physician's assistant manager bilingual working with me, had a ybzb-re-ufrl encounter that meets the physician rhno-mw-mgah encounter requirements with this patient on: 12/10/23 The encounter with the patient was in whole, or in part, for the following medical condition, which is the primary reason for home health care (List medical condition): ADL dysfunction I certify that, based on my findings, the following services are medically necessary home health services: Physical Therapy and Occupational Therapy To provide the following care/treatments: (All hospitalists not following the patient after discharge should complete this section): gait, ADL, mobility and strengthenng Primary Care Physician to follow home care plan of care after discharge: yes My clinical findings support the need for the above services because: frail elderly, high risk for falls and readmission Further, I certify that my clinical findings support that this patient is homebound (i.e. Absences from home require considerable and taxing effort and are for medical reasons or catholic services or infrequently or of short duration when for other reason) because: wheelchair Physician Signature: Date of Signature: Physician Printed Name: Amor Pate MD Reason for Visit * Reason Onset Date Comments Advice 02/24/2024 Referral 02/24/2024 PT and OT servic e 02/23 Encounter Details Date Type Department Care Team (Late st Contact Info) Description 02/24/2024 Telephone [facility] [address] [phone] Amor Pate MD [address] [address] Advice; Referral (PT and OT service 02/23) Allergies No known active allergiesdocumented as of [...] in the morning. 30 Tablet 07/14/2023 Active Bvraqdt-Zoolaporp-Jl tamin D ER 600-40-500 MG-MG-UNIT Tablet Extended [...] morning. 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 * Telephone Encounter - Grace Rivera OSA - 02/24/2024 10:52 AM EDT Has the patient been seen for this problem? (Y/N)?: Y If No, an appt needs to be scheduled before a referral will be placed (exception: proceed with referral request if referral request is for a yearly routine appointment with speciality) Patient Name: Zulma Villar Patient Primary care provider: Amor Pate MD Does this need to be an insurance referral (Y/N)?: Y If Yes, does the insurance referral need to be placed into the Treatful system? Name of preferred specialist: general staff Type of specialist: Physical and occupational therapy Location of specialist: in home for [facility] PT and OT Specialist's Phone #: [phone] Specialist's Fax #: [phone] Reason for visit: strengthening and overall mobility Date of visit: TBD * Telephone Encounter - Angela Curiel OSA - 02/24/2024 10:31 AM EDT Pt calling in about her referral for her Occupational Therapy and wondering if someone can look into getting something set up with her home health nurse. Pt also calling about her sertraline 10mg stating it is not working and thinking it needs to be upped along with her Ropinirole .25 mg. Please advise. documented in this encounter Plan of Treatment Upcoming Encounters Date Type Department Care Team (Late st Contact Info) Description 02/26/2024 8:00 AM EDT Laboratory Lab Mobile Phlebotomy [facility] [address] [address] [facility], l Mobile Home Draw [address] [id number] Arrived 02/27/2024 6:00 AM EDT Anticoagulation [facility], Derrek Denton [address] [place] [address] [place] [address] [facility], [facility] [address] [place] [address] 03/02/2024 8:20 AM EDT Laboratory Lab Mobile Phlebotomy [facility] [address] [place] [address] [facility], [facility] Mobile Home Draw [address] [place] [address] 03/04/2024 2:00 PM EDT Appointment Radiology, [facility] [address] [place] [address] Prep, [facility] [address] [place] [address] 03/04/2024 4:00 PM EDT [facility], [facility] [address] [place] [address] Allison Young RN [address] [place] [address] 04/01/2024 3:00 PM EDT Telemedicine [facility], [facility] 132 [place] [address] Kayla Thompson CRNP [address] [place] [address] Carol Blevins, Community Health Medicare Interviewer [address] [place] [address] 04/10/2024 11:30 AM EDT Scheduled Telephone [facility], [facility] [address] [facility] [place] [address] Cyndie Hilton RDN [address] [facility] [place] [address] 04/21/2024 1:00 PM EDT Office [address], [address] [address] Sydney Castelan, AMRIO [address] [facility] [address] 05/05/2024 2:00 PM EDT Office Visit Cardiology, [place] [facility] [address] Stephanie Ramos PA-C 400 [facility] [address] 05/14/2024 1:20 PM EDT Office Visit Gastroenterology, [facility] [address] [place] [facility] [place] [phone] Cindy Elena, DO [address] [place] [address] 06/17/2024 11:00 AM EST Telemedicine Hematology/Oncology, [address] [address] Billy Basurto MD 400 [place] [phone] 08/18/2024 3:40 PM EST [facility] [address] [address] Hema Hercules PA-C [address] [address] 08/26/2024 5:40 PM EST Office Visit Family [facility], [place] [facility] [phone] Amor Pate MD [address] [place] [address] 09/10/2024 12:50 PM EST Office Visit Dermatology, [address] [place] [address] [address] Marilyn Ozuna PA-C [address] [place] [address] 12/31/2024 1:00 PM EDT Cardiac Studies Cardiology, [place] 400 [facility] [place] [address] [place] [address] [facility] [place] [address] 02/04/2025 12:00 PM EDT Home Visit Care at Home [address] [place] [address] Carol Mathew PA-C [address] [place] [address] Scheduled Procedures Name Priority Associated Diagnoses Date/Ti me ESOPHAGOGASTRODUODENOSCOPY ( EGD), FLEXIBLE, TRANSORAL, ENDOSCOPIC ULTRASOUND Recall Pancreatic cyst Scheduled Referrals Name Type Priority Associated Diagnoses Orde r Schedule HOME HEALTH REFERRAL OP Referral Within 30 days (routine) Pressure injury of buttock, stage 3, unspecified laterality (HCC) Ambulatory dysfunction Type 2 diabetes mellitus with stage 3a chronic kidney disease, without long-term current use of insulin (HCC) Generalized weakness Ordered: 02/26/2024 Health Maintenance Due Date Last Done Comments Diabetic Foot Exam 1953 Zoster Vaccines (2 of 3) 12/24/2011 10/29/2011 *BISPHONATE OR OTHER ACCEPTABLE MEDICATION NEEDED FOR OSTEOPOROSIS (REFER TO SMARTSET #1146) 08/15/2022 DTaP,Tdap,and Td Vaccines (2 - Td or Tdap) 10/03/2022 10/03/2012, 07/04/2005, 08/22/1992 COVID-19 Vaccine (3 - 2022-24 season) 2023 10/26/2020, 09/30/2020 HbA1c 01/08/2024 07/09/2023, 04/01/2023 Influenza Vaccine (FLU shot) (#1) 2024 04/29/2023, 05/28/2022, 05/18/2021, Additional history exists Diabetic Eye Exam 06/19/2024 06/19/2023, , 01/12/2019, Additional history exists CKD PHOS USE SMARTSET 68419 08/22/202408/05, 08/20/2023, 11/07/2022, Additional history exists Albumin/Creatinine Ratio 12/05/2024 12/06/2023, 03/06 Depression Screening 02/03/2025 02/04/2024, 12/10/19 24 CKD HGB USE SMARTSET 82250 02/16/202502/16, 02/17/2024, 01/03/2024, Additional history exists DXA Scan 04/22/2025 04/22/2023, 04/05, 12/25/2018, Additional history exists Pneumococcal Vaccine: 65+ Years Completed 02/01/2016, 10/27/2002 VITAMIN D LEVEL ONCE IN A LIFETIME-USE SMARTSET# 56765 Completed 09/16/2023, 10/20/2019, 03/11/2012, Additional history exists [...] encounter Medical Devices Implanted Type Area Department Head Device Identifier Shelf Expiration Date Model / Serial / Lot Implant System, Trim-It Drill Pin [id number]" X 4" Implanted:Qty: 1 on 10/10/2017 by Sydney Castelan DPM at OR [facility] Right: Toe 04/04/2019 AR-[id number] / / [id number] Medtronic Attesta Surescan Pacemaker Implanted:Qty: 1 on 06/09/2020 by Chanel Lin DO at OR [facility] Left: Chest 08/01/2021 ATSR01 / [id number] / Nail [id number] Left [id number] - [id number] Implanted:Qty: 1 on 01/20/2021 by Alli Townsend MD at OR [facility] Left: Hip MILAN : TRAUMA 12/03/2023 3525-034 0S / / [id number] Screw Lag 10.5x95mm - [id number] Implanted:Qty: 1 on 01/20/2021 by Alli Townsend MD at OR [facility] Left: Hip MILAN : TRAUMA 11/02/2025 3060-009 5S / / [id number] Screw T2 Alpha Lock 5x47.5mm - [id number] Implanted:Qty: 1 on 01/20/2021 by Alli Townsend MD at OR [facility] Left: Hip MILAN : TRAUMA 05/04/2029 [id number] 7S / / [id number] documented as of this encounter Visit Diagnoses Diagnosis Pressure injury of buttock, stage 3, unspecified laterality (HCC)- Primary Ambulatory dysfunction Type 2 diabetes mellitus with stage 3a chronic kidney disease, without long-term current use of insulin (HCC) Generalized weakness Other malaise and fatigue documented in this encounter Advance Directives Documents on File Type Date Recorded Patient Technical Document Writer Expl anation POLST 07/15/2023 [place] OR [facility] FOR LIFE-SUSTAINING TREATMENT * Full [...] First Alternate Health Care Agent Care Teams Service Operations Manager Relationship Specialty Start Date End Date Amor Pate MD [address] [id number] PCP - General Family Medicine 12/06/22 documented as of this encounter
--- OUTSIDE RECORDS SUMMARY | 2024-08-18 16:29 | External Medical Summary | Summary of Care ---
Author Name Unknown Organization [facility] Address [address] [place] [address] Phone [phone] Care Team Providers Care Collection Systems Consultant Name Role Phone Amor Pate MD Primary Care Provider [phone] Reason for Referral * Evaluate & Treat [...] (HCC) Generalized weakness Amor Pate MD [address] [place] [address] Referral ID Status Reason Start Date Expiration Date Visits Requested Visits Authorized [id number] Authorized Specialty Services Required 02/26/2024 999 999 Question Answer Referral Priority Within 30 days (routine) Where should this appointment be scheduled? External Comments Documentation of Wmqx-pn-Dufq Encounter Addendum Patient Name: Zulma Villar I certify that this patient is under my care and that I, or a nurse practitioner or physician's assistant film editor working with me, had a zzrr-ky-ural encounter that meets the physician mkre-wf-desz encounter requirements with this patient on: 12/10/23 [...] effort and are for medical reasons or voodoo services or infrequently or of short duration when for other reason) because: wheelchair Physician Signature: Date of Signature: Physician Printed Name: Amor Pate MD Reason for Visit * Reason Onset Date Comments Advice 02/24/2024 Referral 02/24/2024 PT and OT servic e 02/23 Encounter Details Date Type Department Care Team (Late st Contact Info) Description 02/24/2024 Telephone [facility] [address] [phone] Amor Pate MD [...] in the morning. 30 Tablet 07/14/2023 Active Fuommoz-Okdtpeslq-Gu tamin D ER 600-40-500 MG-MG-UNIT Tablet Extended [...] morning. 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 Name of preferred specialist: general staff Type of specialist: Physical and occupational therapy Location of specialist: in home for [facility] PT and OT Specialist's Phone #: [phone] Specialist's Fax #: [phone] Reason for visit: strengthening and overall mobility [...] Centralized Clinical Pharmacy Services, Derrek Denton [address] [place] [address] [address] [address] [address] [facility], [address] [place] [address] 03/02/2024 8:20 AM EDT Laboratory Lab Mobile Phlebotomy [address] [place] [address] [facility], l Mobile Home Draw 400 [facility], [place] [address] 03/04/2024 2:00 PM EDT Appointment Radiology, [facility] 400 [facility] [address] Prep[address] [facility] [address] 400 [facility], [place] [address] 03/04/2024 4:00 PM EDT [facility], [facility] [address] [place] [address] Allison Young RN 132 [place] [address] 04/01/2024 3:00 PM EDT Telemedicine [facility], [facility] 132 [facility] [address] Kayla Thompson CRNP [address] [place] [address] Carol Blevins, Community Health Chief Technician [address] [place] [address] 04/10/2024 11:30 AM EDT Scheduled Telephone [facility], [facility] [address] [facility] [place] [address] Cyndie Hilton RDN [address] [facility] [place] [address] 04/21/2024 1:00 PM EDT Office Visit Podiatry, [facility] 400 [facility] [address] Sydney Castelan, MARIO 400 [facility] [address] 05/05/2024 2:00 PM EDT Office Visit Cardiology, [place] 400 [facility] [place] [address] Stephanie Ramos PA-C 400 [facility] [place] [address] 05/14/2024 1:20 PM EDT [facility] [address] [place] [phone] Cindy Elena, DO [address] [place] [address] 06/17/2024 11:00 AM EST Telemedicine Hematology/Oncology, [facility] 400 [facility] [place] [address] Billy Basurto MD 400 [facility] [place] [address] 08/18/2024 3:40 PM EST Office Visit Otolaryngology, [place] [address] [address] [address] Hema Hercules PA-C [address] [place] [address] 08/26/2024 5:40 PM EST Office Visit Family [facility], [place] [address] [phone] Amor Pate MD [address] [address] 09/10/2024 12:50 PM EST Office Visit Dermatology, [place] [address] [facility] [address] [address] [address] Marilyn Ozuna PA-C [address] [place] [address] 12/31/2024 1:00 PM EDT Cardiac Studies Cardiology, [place] 400 [facility] [place] [address] [place], [facility] [address] [place] [address] 02/04/2025 12:00 PM EDT Home Visit Care at Home [address] [place] [address] Carol Mathew PA-C [address] [place], [place] [phone] Scheduled Procedures Name Priority Associated Diagnoses Date/Ti [...] Additional history exists CKD PHOS USE SMARTSET 96989 08/22/202408/05, 08/20/2023, 11/07/2022, Additional history exists Albumin/Creatinine Ratio 12/05/2024 12/06/2023, 03/06 Depression Screening 02/03/2025 02/04/2024, 12/10/19 24 CKD HGB USE SMARTSET 01923 02/16/202502/16, 02/17/2024, 01/03/2024, Additional history exists DXA Scan 04/22/2025 04/22/2023, 04/05, 12/25/2018, Additional history exists Pneumococcal Vaccine: 65+ Years Completed 02/01/2016, 10/27/2002 VITAMIN D LEVEL ONCE IN A LIFETIME-USE SMARTSET# 24428 Completed 09/16/2023, 10/20/2019, 03/11/2012, Additional history exists [...] this encounter Medical Devices Implanted Type Area Power Transformer Repairer Device Identifier Shelf Expiration Date Model / Serial / Lot Implant System, Trim-It Drill Pin [id number]" X 4" Implanted:Qty: 1 on 10/10/2017 by Sydney Castelan DPM at OR [facility] Right: Toe 04/04/2019 AR-[id number] / / [id number] Medtronic Attesta Surescan Pacemaker Implanted:Qty: 1 on 06/09/2020 by Chanel Lin DO at OR [facility] Left: Chest 08/01/2021 ATSR01 / [id number] / Nail [id number] Left [id number] - [id number] Implanted:Qty: 1 on 01/20/2021 by Alli Townsend MD at OR [facility] Left: Hip MILAN : TRAUMA 12/03/2023 3525-034 0S / / [id number] Screw Lag 10.5x95mm - [id number] Implanted:Qty: 1 on 01/20/2021 by Alli Townsend MD at OR [facility] Left: Hip MILAN : TRAUMA 11/02/2025 3060-009 5S / / [id number] Screw T2 Alpha Lock 5x47.5mm - [id number] Implanted:Qty: 1 on 01/20/2021 by Alli Townsend MD at OR [facility] Left: Hip MILAN : TRAUMA 05/04/2029 2360-504 7S / / [id number] documented as of this encounter Visit Diagnoses Diagnosis Pressure injury of buttock, stage 3, unspecified laterality (HCC)- Primary Ambulatory dysfunction Type 2 diabetes mellitus with stage 3a chronic kidney disease, without long-term current use of insulin (HCC) Generalized weakness Other malaise and fatigue documented in this encounter Advance Directives Documents on File Type Date Recorded 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
--- OUTSIDE RECORDS SUMMARY | 2024-08-18 16:29 | External Medical Summary | Summary of Care ---
Author Name Unknown Organization [facility] Address [address] [place] [address] Phone [phone] Care Team Providers Care Nail Polish Brush Machine Feeder Name Role Phone Amor Pate MD Primary Care Provider [phone] Reason for Referral * Evaluate & Treat [...] (HCC) Generalized weakness Amor Pate MD [address] [place] [address] Referral ID Status Reason Start Date Expiration Date Visits Requested Visits Authorized [id number] Authorized Specialty Services Required 02/26/2024 999 999 Question Answer Referral Priority Within 30 days (routine) Where should this appointment be scheduled? External Comments Documentation of Teya-cw-Vbob Encounter Addendum Patient Name: Zulma Villar I certify that this patient is under my care and that I, or a nurse practitioner or physician's rn first assistant working with me, had a fmdm-yl-ltck encounter that meets the physician lnmu-dq-wvwk encounter requirements with this patient on: 12/10/23 [...] effort and are for medical reasons or mandaeism services or infrequently or of short duration when for other reason) because: wheelchair Physician Signature: Date of Signature: Physician Printed Name: Amor Pate MD Reason for Visit * Reason Onset Date Comments Advice 02/24/2024 Referral 02/24/2024 PT and OT servic e 02/23 Encounter Details Date Type Department Care Team (Late st Contact Info) Description 02/24/2024 Telephone [facility] [address] [place] [phone] Amor Pate MD [...] in the morning. 30 Tablet 07/14/2023 Active Pecvmpf-Kevugerdk-Ha tamin D ER 600-40-500 MG-MG-UNIT Tablet Extended [...] morning. 45 Tablet 3 12/25/2023 Active Nystatin 431334 UNIT/GM External CreamIndications:Can didal intertrigo Apply topically [...] "My pants feel tight") Medication Regimen: Beta Tiak Therapy: Metoprolol Succinate (ER) JACOB Inhibitor/ARB Therapy: [...] multicystic lesion of the pancreas CEA, FLUID 06076.0 ng/mL Final COMMENT Final The reference range [...] patient does not have a Power of Looseleaf Binder Coverer or Advanced Directives in place at this [...] mRNA, LNP-s, No Pre serve, 2-Dose Series (Haute App) 10/26/2020,09/30/2020 Pneumococcal Conjugate Vacc, 13 Valent (Prevnar) [...] encounter Miscellaneous Notes * Telephone Encounter - Christine Harris OSA - 02/26/2024 8:13 AM EDT ALL NOTES FAXED REQUESTED FAX BACK OK * Telephone Encounter - Josefina Azar LPN [...] referral need to be placed into the [employer] system? Name of preferred specialist: general staff Type of specialist: Physical and occupational therapy Location of specialist: in home for [facility] PT and OT Specialist's Phone #: [phone] Specialist's Fax #: [phone] Reason for visit: strengthening and overall mobility [...] Centralized Clinical Pharmacy Services, Derrek [place] [address] [place] [address] [place] [address] [facility], [address] [place] [address] 03/02/2024 8:20 AM EDT Laboratory Lab Mobile Phlebotomy [facility] [address] [place] [address] [facility], [facility] Mobile Home Draw 400 [facility] [place] [address] 03/04/2024 2:00 PM EDT Appointment Radiology, [facility] [address] [place] [address] Prep, [facility] [address] [place] [address] 03/04/2024 4:00 PM EDT Home Visit [facility], [facility] 132 [facility] [place] [address] Allison Young, RN 132 [facility] [place] [address] 04/01/2024 3:00 PM EDT Telemedicine [facility], [facility] 132 [facility] [place] [address] Kayla Thompson CRNP 132 [facility] [place] [address] Carol Blevins, [facility] Heel Nail Rasper [address] [place] [address] 04/10/2024 11:30 AM EDT Scheduled Telephone [facility], [facility] [address] [facility] [place] [address] YobaniCyndie, RDN [address] [facility] [place] [address] 04/21/2024 1:00 PM EDT Office Visit Podiatry, [address] [place] [address] Sydney Castelan, DPM [facility] [address] 05/05/2024 2:00 PM EDT Office Visit Cardiology, [address] [address] Stephanie Ramos PA-C [address] [place] [address] 05/14/2024 1:20 PM EDT Office Visit Gastroenterology, [facility] [address] [place] [phone] Cindy Elena, DO 132 [facility] [address] 06/17/2024 11:00 AM EST Telemedicine Hematology/Oncology, [facility] [address] [facility] [address] Billy Basurto MD 400 [facility] [phone] 08/18/2024 3:40 PM EST [facility] [address] [place] [address] [address] Hema Hercules PA-C [address] [place] [address] 08/26/2024 5:40 PM EST Office Visit Family [facility], [place] [address] [phone] Amor Pate MD [address] [address] 09/10/2024 12:50 PM EST Office Visit Dermatology, [address] [place] [address] [place] [address] Marilyn Ozuna PA-C [address] [place] [address] 12/31/2024 1:00 PM EDT Cardiac Studies Cardiology, [place] [address] [place] [address] [place] [address] [place] [address] 02/04/2025 12:00 PM EDT Home Visit Care at Home [address] [place], [place] [phone] Carol Mathew PA-C [address] [place] [address] Scheduled Procedures Name Priority Associated Diagnoses Date/Ti [...] Additional history exists CKD PHOS USE SMARTSET 93696 08/22/202408/05, 08/20/2023, 11/07/2022, Additional history exists Albumin/Creatinine Ratio 12/05/2024 12/06/2023, 03/06 Depression Screening 02/03/2025 02/04/2024, 12/10/19 24 CKD HGB USE SMARTSET 39833 02/16/202502/16, 02/17/2024, 01/03/2024, Additional history exists DXA Scan 04/22/2025 04/22/2023, 04/05, 12/25/2018, Additional history exists Pneumococcal Vaccine: 65+ Years Completed 02/01/2016, 10/27/2002 VITAMIN D LEVEL ONCE IN A LIFETIME-USE SMARTSET# 72270 Completed 09/16/2023, 10/20/2019, 03/11/2012, Additional history exists [...] this encounter Medical Devices Implanted Type Area Tallow Refiner Device Identifier Shelf Expiration Date Model / Serial / Lot Implant System, Trim-It Drill Pin [id number]" X 4" Implanted:Qty: 1 on 10/10/2017 by Sydney Castelan DPM at OR [facility] Right: Toe 04/04/2019 AR-[id number] / / [id number] [id number] Medtronic Attesta Surescan Pacemaker Implanted:Qty: 1 on 06/09/2020 by Chanel Lin DO at OR [facility] Left: Chest 08/01/2021 ATSR01 / [id number] / Nail [id number] Left [id number] - [id number] Implanted:Qty: 1 on 01/20/2021 by Alli Townsend MD at OR [facility] Left: Hip MILAN : TRAUMA 12/03/2023 3525-034 0S / / [id number] Screw Lag 10.5x95mm - [id number] Implanted:Qty: 1 on 01/20/2021 by Alli Townsend MD at OR [facility] Left: Hip MILAN : TRAUMA 11/02/2025 3060-009 5S / / [id number] Screw T2 Alpha Lock 5x47.5mm - [id number] Implanted:Qty: 1 on 01/20/2021 by Alli Townsend MD at OR [facility] Left: Hip MILAN : TRAUMA 05/04/2029 [id number] 7S / / [id number] documented as of this encounter Visit Diagnoses Diagnosis Pressure injury of buttock, stage 3, unspecified laterality (HCC)- Primary Ambulatory dysfunction Type 2 diabetes mellitus with stage 3a chronic kidney disease, without long-term current use of insulin (HCC) Generalized weakness Other malaise and fatigue documented in this encounter Advance Directives Documents on File Type Date Recorded 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
--- OUTSIDE RECORDS SUMMARY | 2024-08-18 16:29 | External Medical Summary ---
Author Name Unknown Address Unknown Organization K1F:LABORATORY [facility] [place] [address] Laboratory Report Ordering Provider Test Date Status ANDREW HOOVER 02/26/2024 12:43:06 Final Please draw PT/INR every 1-4 weeks or as requested by the [facility]

Warfarin Therapy
INR: 2.0-3.0 conventional anticoagulation
INR: 2.5-3.5 high intensity anticoagulation Observation Date Value Abnormality Reference (Units ) Status PT 02/26/2024 12:43:06 24.2 Above high normal 11 .6-15.2 (seconds) Final INR 02/26/2024 12:43:06 2.1 Above high normal 0. 8-1.2 Final Performing Location LAB[facility]ATORY [facility] - [address] [place] [address]
--- OUTSIDE RECORDS SUMMARY | 2024-08-18 16:29 | External Medical Summary | Summary of Care ---
Author Name Unknown Organization [facility] Address [address] [place] [address] Phone [phone] Care Team Providers Care Grommet Man Name Role Phone Amor Pate MD Primary Care Provider [phone] Reason for Referral * Evaluate & Treat [...] (HCC) Generalized weakness Amor Pate MD [address] [place] [address] Referral ID Status Reason Start Date Expiration Date Visits Requested Visits Authorized [id number] Authorized Specialty Services Required 02/26/2024 999 999 Question Answer Referral Priority Within 30 days (routine) Where should this appointment be scheduled? External Comments Documentation of Gybi-kv-Tuyw Encounter Addendum Patient Name: Zulma Villar I certify that this patient is under my care and that I, or a nurse practitioner or physician's rn first assistant working with me, had a mvep-pf-vyyo encounter that meets the physician sboh-qx-txdc encounter requirements with this patient on: 12/10/23 [...] effort and are for medical reasons or christian services or infrequently or of short duration when for other reason) because: wheelchair Physician Signature: Date of Signature: Physician Printed Name: Amor Pate MD Reason for Visit * Reason Onset Date Comments Advice 02/24/2024 Referral 02/24/2024 PT and OT servic e 02/23 Encounter Details Date Type Department Care Team (Late st Contact Info) Description 02/24/2024 Telephone [facility] [address] [place] [phone] Amor Pate [...] in the morning. 30 Tablet 07/14/2023 Active Jmthofl-Ipsnlznhu-Wa tamin D ER 600-40-500 MG-MG-UNIT Tablet Extended [...] morning. 45 Tablet 3 12/25/2023 Active Nystatin 283611 UNIT/GM External CreamIndications:Can didal intertrigo Apply topically [...] multicystic lesion of the pancreas CEA, FLUID 82192.0 ng/mL Final COMMENT Final The reference range [...] 06/18/2013 Last Assessment & Plan: S/p pacemaker meterman current use of anticoagulant therapy 0 08/28/2010 [...] patient does not have a Power of Commercial Loan Reviewer or Advanced Directives in place at this [...] referral need to be placed into the [employer] system? Name of preferred specialist: general staff Type of specialist: Physical and occupational therapy Location of specialist: in home for [facility] PT and OT Specialist's Phone #: [phone] Specialist's Fax #: [phone] Reason for visit: strengthening and overall mobility [...] Centralized Clinical Pharmacy Services, Derrek [place] [address] [place] [address] [place] [address] [facility], [address] [place] [address] 03/02/2024 8:20 AM EDT Laboratory Lab Mobile Phlebotomy [address] [place] [address] [facility], l Mobile Home Draw 400 [facility], [place] [address] 03/04/2024 2:00 PM EDT Appointment Radiology, [facility] 400 [facility] [address] Prep, [facility] [address] 400 [facility], [place] [address] 03/04/2024 4:00 PM EDT [facility], [facility] 132 [place] [address] Allison Young RN 132 [place] [address] 04/01/2024 3:00 PM EDT Telemedicine [facility], [facility] 132 [facility] [address] Kayla Thompson CRNP [address] [place] [address] Carol Blevins, [facility] Oil And Gas Exploration Technician [address] [place] [address] 04/10/2024 11:30 AM EDT Scheduled Telephone [facility], [facility] [address] [facility] [place] [address] Cyndie Hilton RDN [address] [facility] [place] [address] 04/21/2024 1:00 PM EDT Office Visit Podiatry, [facility] 400 [facility] [address] Sydney Castelan, MARIO 400 [facility] [address] 05/05/2024 2:00 PM EDT Office Visit Cardiology, [place] 400 [facility] [place] [address] Stephanie Ramos PA-C 400 [facility] [place] [address] 05/14/2024 1:20 PM EDT [facility] [address] [place] [address] Cindy Elena, DO [address] [place] [address] 06/17/2024 11:00 AM EST Telemedicine Hematology/Oncology, [facility] 400 [facility] [place] [address] Billy Basurto MD 400 [facility] [place] [address] 08/18/2024 3:40 PM EST Office Visit Otolaryngology, [place] [address] [place] [address] Hema Hercules PA-C [address] [place] [address] 08/26/2024 5:40 PM EST Office Visit Family [facility], [place] [address] [place] [phone] Amor Pate MD [address] [place] [address] 09/10/2024 12:50 PM EST Office Visit Dermatology, [place] [address] [facility] [address] [place] [address] Marilyn Ozuna PA-C [address] [place] [address] 12/31/2024 1:00 PM EDT Cardiac Studies Cardiology, [place] 400 [facility] [place] [address] [place], [facility] [address] [place] [address] 02/04/2025 12:00 PM EDT Home Visit Care at Home [address] [place] [address] Carol Mathew PA-C [address] [place], [place] [phone] Scheduled Procedures Name Priority Associated Diagnoses Date/Ti [...] Additional history exists CKD PHOS USE SMARTSET 10389 08/22/202408/05, 08/20/2023, 11/07/2022, Additional history exists Albumin/Creatinine Ratio 12/05/2024 12/06/2023, 03/06 Depression Screening 02/03/2025 02/04/2024, 12/10/19 24 CKD HGB USE SMARTSET 45093 02/16/202502/16, 02/17/2024, 01/03/2024, Additional history exists DXA Scan 04/22/2025 04/22/2023, 04/05, 12/25/2018, Additional history exists Pneumococcal Vaccine: 65+ Years Completed 02/01/2016, 10/27/2002 VITAMIN D LEVEL ONCE IN A LIFETIME-USE SMARTSET# 63848 Completed 09/16/2023, 10/20/2019, 03/11/2012, Additional history exists [...] this encounter Medical Devices Implanted Type Area Lactation Nurse Device Identifier Shelf Expiration Date Model / Serial / Lot Implant System, Trim-It Drill Pin [id number](.078" X 4" Implanted:Qty: 1 on 10/10/2017 by Sydney Castelan DPM at OR [facility] Right: Toe 04/04/2019 AR-[id number] / / [id number] Medtronic Attesta Surescan Pacemaker Implanted:Qty: 1 on 06/09/2020 by Chanel Lin DO at OR [facility] Left: Chest 08/01/2021 ATSR01 / [id number] / Nail [id number] Left [id number] - [id number] Implanted:Qty: 1 on 01/20/2021 by Alli Townsend MD at OR [facility] Left: Hip MILAN : TRAUMA 12/03/2023 3525-034 0S / / [id number] Screw Lag 10.5x95mm - [id number] Implanted:Qty: 1 on 01/20/2021 by Alli Townsend MD at OR [facility] Left: Hip MILAN : TRAUMA 11/02/2025 3060-009 5S / / [id number] Screw T2 Alpha Lock 5x47.5mm - [id number] Implanted:Qty: 1 on 01/20/2021 by Alli Townsend MD at OR [facility] Left: Hip MILAN : TRAUMA 05/04/2029 2360-504 7S / / [id number] documented as of this encounter Visit Diagnoses Diagnosis Pressure injury of buttock, stage 3, unspecified laterality (HCC)- Primary Ambulatory dysfunction Type 2 diabetes mellitus with stage 3a chronic kidney disease, without long-term current use of insulin (HCC) Generalized weakness Other malaise and fatigue documented in this encounter Advance Directives Documents on File Type Date Recorded 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
--- OUTSIDE RECORDS SUMMARY | 2024-08-18 16:29 | External Medical Summary | Summary of Care ---
Author Name Unknown Organization [facility] Address [address] [place] [address] Phone [phone] Care Team Providers Care Appellate Court Clerk Name Role Phone Amor Pate MD Primary Care Provider [phone] [phone] Reason for Referral * Evaluate & Treat [...] (HCC) Generalized weakness Amor Pate MD 21 [place] [address] Referral ID Status Reason Start Date Expiration Date Visits Requested Visits Authorized [id number] Authorized Specialty Services Required 02/26/2024 999 999 Question Answer Referral Priority Within 30 days (routine) Where should this appointment be scheduled? External Comments Documentation of Zazj-ec-Dtiz Encounter Addendum Patient Name: Zulma Villar I certify that this patient is under my care and that I, or a nurse practitioner or physician's assistant executive housekeeper working with me, had a akxp-hz-dncj encounter that meets the physician hvbe-zy-ylgy encounter requirements with this patient on: 12/10/23 [...] effort and are for medical reasons or adventist services or infrequently or of short duration when for other reason) because: wheelchair Physician Signature: Date of Signature: Physician Printed Name: Amor Pate MD Reason for Visit * Reason Onset Date Comments Advice 02/24/2024 Referral 02/24/2024 PT and OT servic e 02/23 Encounter Details Date Type Department Care Team (Late st Contact Info) Description 02/24/2024 Telephone [facility] [address] [place] [phone] Amor Pate [...] in the morning. 30 Tablet 07/14/2023 Active Dqjtjyt-Kejmrizcv-Du tamin D ER 600-40-500 MG-MG-UNIT Tablet Extended [...] morning. 45 Tablet 3 12/25/2023 Active Nystatin 097520 UNIT/GM External CreamIndications:Can didal intertrigo Apply topically [...] multicystic lesion of the pancreas CEA, FLUID 12924.0 ng/mL Final COMMENT Final The reference range [...] patient does not have a Power of Fleet Coordinator or Advanced Directives in place at this [...] referral need to be placed into the [employer] system? Name of preferred specialist: general staff Type of specialist: Physical and occupational therapy Location of specialist: in home for [facility] PT and OT Specialist's Phone #: [phone] Specialist's Fax #: [phone] Reason for visit: strengthening and overall mobility [...] Anticoagulation Centralized Clinical Pharmacy Services, Derrek Denton [address] [place] [address] [place] [address] [facility], [address] [place] [address] 03/02/2024 8:20 AM EDT Laboratory Lab Mobile Phlebotomy [address] [place] [address] [facility], l Mobile Home Draw 400 [facility], [place] [address] 03/04/2024 2:00 PM EDT Appointment Radiology, [facility] 400 [facility] [address] Prep, [facility] [address] 400 [facility], [place] [address] 03/04/2024 4:00 PM EDT [facility], [facility] 132 [place] [address] Allison Young RN 132 [place] [address] 04/01/2024 3:00 PM EDT Telemedicine [facility], [facility] 132 [facility] [address] Kayla Thompson CRNP 132 [place] [address] Carol Blevins, Community Health Per Diem Physical Therapist [address] [place] [address] 04/10/2024 11:30 AM EDT Scheduled Telephone [facility], [facility] [address] [facility] [place] [address] Cyndie Hilton RDN [address] [facility] [place] [address] 04/21/2024 1:00 PM EDT Office Visit Podiatry, [facility] 400 [facility] [address] Sydney Castelan, MARIO 400 [facility] [address] 05/05/2024 2:00 PM EDT Office Visit Cardiology, [place] 400 [facility] [place] [address] Stephanie Ramos PA-C 400 [facility] [place] [address] 05/14/2024 1:20 PM EDT [facility] [address] [place] [address] Cindy Elena, DO [address] [place] [address] 06/17/2024 11:00 AM EST Telemedicine Hematology/Oncology, [facility] 400 [facility] [place]H [address] Billy Basurto MD 400 [facility] [place] [address] 08/18/2024 3:40 PM EST Office Visit Otolaryngology, Francisco Polanco 27 [place] [address] Hema Hercules PA-C [address] [place] [address] 08/26/2024 5:40 PM EST Office Visit Family [facility], [place] [address] [place] [phone] Amor Pate MD 21 [place] [address] 09/10/2024 12:50 PM EST Office Visit Dermatology, [place] [address] [facility] 140 [place] [address] Marilyn Ozuna PA-C [address] [place] [address] 12/31/2024 1:00 PM EDT Cardiac Studies Cardiology, [place] 400 [facility] [place] [address] [place], [facility] 400 [place] [address] 02/04/2025 12:00 PM EDT Home Visit Care at Home [address] [place] [address] Carol Mathew PA-C [address] [place], [place] [address] Scheduled Procedures Name Priority Associated Diagnoses Date/Ti [...] Additional history exists CKD PHOS USE SMARTSET 70746 08/22/202408/05, 08/20/2023, 11/07/2022, Additional history exists Albumin/Creatinine Ratio 12/05/2024 12/06/2023, 03/06 Depression Screening 02/03/2025 02/04/2024, 12/10/19 24 CKD HGB USE SMARTSET 94395 02/16/202502/16, 02/17/2024, 01/03/2024, Additional history exists DXA Scan 04/22/2025 04/22/2023, 04/05, 12/25/2018, Additional history exists Pneumococcal Vaccine: 65+ Years Completed 02/01/2016, 10/27/2002 VITAMIN D LEVEL ONCE IN A LIFETIME-USE SMARTSET# 48861 Completed 09/16/2023, 10/20/2019, 03/11/2012, Additional history exists [...] this encounter Medical Devices Implanted Type Area Composite Worker Device Identifier Shelf Expiration Date Model / Serial / Lot Implant System, Trim-It Drill Pin [id number](.078" X 4" Implanted:Qty: 1 on 10/10/2017 by Sydney Castelan DPM at OR [facility] Right: Toe 04/04/2019 AR-4152DS / / [id number] Medtronic Attesta Surescan Pacemaker Implanted:Qty: 1 on 06/09/2020 by Chanel Lin DO at OR [facility] Left: Chest 08/01/2021 ATSR01 / [id number] / Nail Gamma3 Left [id number] - [id number] Implanted:Qty: 1 on 01/20/2021 by Alli Townsend MD at OR [facility] Left: Hip MILAN : TRAUMA 12/03/2023 3525-034 0S / / [id number] Screw Lag 10.5x95mm - [id number] Implanted:Qty: 1 on 01/20/2021 by Alli Townsend MD at OR [facility] Left: Hip MILAN : TRAUMA 11/02/2025 3060-009 5S / / [id number] Screw T2 Alpha Lock 5x47.5mm - [id number] Implanted:Qty: 1 on 01/20/2021 by Alli Townsend MD at OR [facility] Left: Hip MILAN : TRAUMA 05/04/2029 2360-504 7S / / [id number] documented as of this encounter Visit Diagnoses Diagnosis Pressure injury of buttock, stage 3, unspecified laterality (HCC)- Primary Ambulatory dysfunction Type 2 diabetes mellitus with stage 3a chronic kidney disease, without long-term current use of insulin (HCC) Generalized weakness Other malaise and fatigue documented in this encounter Advance Directives Documents on File Type Date Recorded Patient Perforator Loader Expl anation POLST 07/15/2023 [place] OR [facility] FOR LIFE-SUSTAINING [...] First Alternate Health Care Agent Care Teams Appellate Court Clerk Relationship Specialty Start Date End Date Amor Pate MD [address] [place] [address] PCP - General Family Medicine 12/06/22 documented as of this encounter
--- OUTSIDE RECORDS SUMMARY | 2024-08-18 16:30 | External Medical Summary | Summary of Care ---
Author Name Unknown Organization [facility] Address [address] [place] [address] Phone [phone] Care Team Providers Care Auriculotherapist Name Role Phone Amor Pate MD Primary Care Provider [phone] [phone] Reason for Visit * Reason Onset Date Comments Follow Up 02/14/2024 Encounter Details Date Type Department Care Team (Late st Contact Info) Description 02/14/2024 Telephone Radiology, [facility] [address] [place] [address] Services, Scheduling [address] [place] [address] Follow Up Allergies No known active allergiesdocumented as of this encounter (statuses as of 02/20/2024) Medications Medication Sig Dispensed Refills Start Date [...] in the morning. 30 Tablet 07/14/2023 Active Kaxvevf-Zjcqgygfj-Xg tamin D ER 600-40-500 MG-MG-UNIT Tablet Extended [...] morning. 45 Tablet 3 12/25/2023 Active Nystatin 835364 UNIT/GM External CreamIndications:Can didal intertrigo Apply topically [...] as of this encounter (statuses as of 02/20/2024) Active Problems Problem Noted Date Diagnosed Date [...] multicystic lesion of the pancreas CEA, FLUID 77080.0 ng/mL Final COMMENT Final The reference range [...] patient does not have a Power of Recruitment Officer or Advanced Directives in place at [...] as of this encounter (statuses as of 02/20/2024) Resolved Problems Problem Noted Date Diagnosed Date [...] as of this encounter (statuses as of 02/20/2024) Immunizations Name Administration Dates Next Due COVID-19 [...] encounter Miscellaneous Notes * Telephone Encounter - Lelo Armstrong OSA - 02/14/2024 2:49 PM EDT See below * Telephone Encounter - Lelo Armstrong OSA - 02/14/2024 12:24 PM EDT Called pt to ta MRI but she states she has a pacemaker and someone called her this morning for her information please advise, thank you Radiology scheduling documented in this encounter Plan of Treatment Upcoming Encounters Date Type Department Care Team (Late st Contact Info) Description 02/26/2024 8:00 AM EDT Laboratory Lab Mobile Phlebotomy [facility] [address] [place] [address] [facility], [facility] Mobile Home Draw [address] [place] [address] 02/27/2024 6:00 AM EDT Anticoagulation Centralized Clinical Pharmacy Services, Derrek Denton [address] [place] [address] [place] [address] [facility], [address] [place] [address] 03/02/2024 8:20 AM EDT Laboratory Lab Mobile Phlebotomy [facility] [address] [place] [address] [facility], [facility] Mobile Home Draw [address] [place] [address] 03/04/2024 2:00 PM EDT Appointment Radiology, [facility] [address] [place] [address] Prep, [facility] [address] [place] [address] 03/04/2024 4:00 PM EDT Home Visit [facility], [address] [place] [address] Allison Young RN 132 [facility] [place] [address] 04/01/2024 3:00 PM EDT Telemedicine [facility], [facility] 132 [facility] [address] Kayla Thompson CRNP 132 [facility] [address] Carol Blevins, Community Health Hand Trucker [address] [place], [place] [address] 04/10/2024 11:30 AM EDT Scheduled Telephone [facility], [facility] [address] [facility] [place] [address] YobaniCyndie, RDN [address] [facility] [place] [address] 04/21/2024 1:00 PM EDT Office Visit Podiatry, [address] [address] Sydney Castelan, DPM [address] [place] [address] 05/05/2024 2:00 PM EDT Office Visit Cardiology, [address] [address] Stephanie Ramos PA-C 400 [place] [address] 05/14/2024 1:20 PM EDT Office Visit Gastroenterology, [facility] [address] [place] [phone] Cindy Elena, DO 132 [facility] [place] [address] 06/17/2024 11:00 AM EST Telemedicine Hematology/Oncology, [address] [place] [address] Billy Basurto MD 400 [place] [phone] 08/18/2024 3:40 PM EST Office Visit Otolaryngology, [address] Loz[address] [place] [address] [place] [address] Hema Hercules PA-C [address] [place] [address] 08/26/2024 5:40 PM EST Office Visit Family [facility], [place] [address] [place] [phone] Amor Pate MD [address] [place] Shethw[place] cheng [address] 09/10/2024 12:50 PM EST Office Visit Dermatology, Adwoa Green [place] 27 [facility] Y[place]any 140 [place] [address] Marilyn Ozuna PA-C [address] [place] [address] 12/31/2024 1:00 PM EDT Cardiac Studies Cardiology, [place] 400 [facility] [place] [address] [place], [facility] 400 [facility] [place] [address] 02/04/2025 12:00 PM EDT Home Visit Care at Home [address] [place] [address] Carol Mathew PA-C [address] [place] [address] Scheduled Procedures Name Priority Associated Diagnoses Date/Ti [...] Additional history exists CKD PHOS USE SMARTSET 71780 08/22/202408/05, 08/20/2023, 11/07/2022, Additional history exists Albumin/Creatinine Ratio 12/05/2024 12/06/2023, 03/06 Depression Screening 02/03/2025 02/04/2024, 12/10/19 CKD HGB USE SMARTSET 97709 02/16/202502/16, 02/17/2024, 01/03/2024, Additional history exists DXA Scan 04/22/2025 04/22/2023, 04/05, 12/25/2018, Additional history exists Pneumococcal Vaccine: 65+ Years Completed 02/01/2016, 10/27/2002 VITAMIN D LEVEL ONCE IN A LIFETIME-USE SMARTSET# 67587 Completed 09/16/2023, 10/20/2019, 03/11/2012, Additional history exists [...] this encounter Medical Devices Implanted Type Area Logging Crew Supervisor Device Identifier Shelf Expiration Date Model / Serial / Lot Implant System, Trim-It Drill Pin [id number](.078" X 4" Implanted:Qty: 1 on 10/10/2017 by Sydney Castelan DPM at [facility] Right: Toe 04/04/2019 AR-4152DS / / [id number] [facility] Medtronic Attesta Surescan Pacemaker Implanted:Qty: 1 on 06/09/2020 by Chanel Lin DO at OR [facility] Left: Chest 08/01/2021 ATSR01 / [id number] / Nail [id number] Left [id number] - [id number] Implanted:Qty: 1 on 01/20/2021 by Alli Townsend MD at OR [facility] Left: Hip MILAN : TRAUMA 12/03/2023 3525-034 0S / / [id number] Screw Lag 10.5x95mm - [id number] Implanted:Qty: 1 on 01/20/2021 by Alli Townsend MD at OR [facility] Left: Hip MILAN : TRAUMA 11/02/2025 3060-009 5S / / [id number] Screw T2 Alpha Lock 5x47.5mm - [id number] Implanted:Qty: 1 on 01/20/2021 by Alli Townsend MD at OR [facility] Left: Hip MILAN : TRAUMA 05/04/2029 2360-504 7S / / [id number] documented as of this encounter Advance Directives Documents on File Type Date Recorded Patient Sweet Pickled Fruit Maker Expl anation POLST 07/15/2023 [place] OR [facility] FOR [...] First Alternate Health Care Agent Care Teams Auriculotherapist Relationship Specialty Start Date End Date Amor Pate MD [address] [place] [address] PCP - General Family Medicine 12/06/22 documented as of this encounter
--- OUTSIDE RECORDS SUMMARY | 2024-08-18 16:30 | External Medical Summary | Summary of Care ---
Author Name Unknown Organization [facility] Address [address] [place] [address] Phone [phone] Care Team Providers Care Tube Coremaker Name Role Phone Amor Pate MD Primary Care Provider [phone] Reason for Referral * Evaluate & Treat [...] (HCC) Generalized weakness Amor Pate MD [address] [place] [address] Referral ID Status Reason Start Date Expiration Date Visits Requested Visits Authorized [id number] Authorized Specialty Services Required 02/26/[phone] Question Answer Referral Priority Within 30 days (routine) Where should this appointment be scheduled? External Comments Documentation of Swds-qq-Ltqa Encounter Addendum Patient Name: Zulma Villar I certify that this patient is under my care and that I, or a nurse practitioner or physician's health center assistant working with me, had a ekyl-ib-dtny encounter that meets the physician ztqz-dn-lztv encounter requirements with this patient on: 12/10/23 [...] effort and are for medical reasons or taoist services or infrequently or of short duration when for other reason) because: wheelchair Physician Signature: Date of Signature: Physician Printed Name: Amor Pate MD Reason for Visit * Reason Onset Date Comments Advice 02/24/2024 Referral 02/24/2024 PT and OT servic e 02/23 Encounter Details Date Type Department Care Team (Late st Contact Info) Description 02/24/2024 Telephone [facility] [address] [place] [phone] Amor Pate MD [...] in the morning. 30 Tablet 07/14/2023 Active Keardqp-Myxhbqlaa-Hw tamin D ER 600-40-500 MG-MG-UNIT Tablet Extended [...] morning. 45 Tablet 3 12/25/2023 Active Nystatin 249292 UNIT/GM External CreamIndications:Can didal intertrigo Apply topically [...] multicystic lesion of the pancreas CEA, FLUID 05848.0 ng/mL Final COMMENT Final The reference range [...] Last Assessment & Plan: S/p pacemaker terminal clerk current use of anticoagulant therapy 0 08/28/2010 [...] patient does not have a Power of Safety Intern or Advanced Directives in place at this [...] referral need to be placed into the [employer] system? Name of preferred specialist: general staff Type of specialist: Physical and occupational therapy Location of specialist: in home for [facility] PT and OT Specialist's Phone #: [phone] Specialist's Fax #: [phone] Reason for visit: strengthening and overall mobility [...] 8:00 AM EDT Laboratory Lab Mobile Phlebotomy [facility] 400 [place] [address] [facility], l Mobile Home Draw 400 [place] [id number] Arrived 02/27/2024 6:00 AM EDT Anticoagulation Centralized Clinical Pharmacy Services, Derrek Denton [address] [place] [address] [place] [address] [facility], [place] [address] [place] [place] [address] 03/02/2024 8:20 AM EDT Laboratory Lab Mobile Phlebotomy [facility] 400 [place] [address] [facility], [facility] Mobile Home Draw [address] [place] [address] 03/04/2024 2:00 PM EDT Appointment Radiology, [facility] [address] [place] [address] Prep, [facility] [address] [place] [address] 03/04/2024 4:00 PM EDT [facility], [facility] 132 [place] [address] Allison Young RN 132 [place] [address] 04/01/2024 3:00 PM EDT Telemedicine [facility], [facility] 132 [place] [address] Kayla Thompson CRNP 132 [place] [address] Carol Blevins, Community Health Optomechanical Technician [address] [place] [address] 04/10/2024 11:30 AM EDT Scheduled Telephone [facility], [facility] [address] [facility] [place] [address] Cyndie Hilton RDN [address] [facility] [place] [address] 04/21/2024 1:00 PM EDT Office Visit Podiatry, [address] [address] Sydney Castelan, MARIO 400 [facility] [address] 05/05/2024 2:00 PM EDT Office Visit Cardiology, [place] [facility] [address] Stephanie Ramos PA-C 400 [facility] [address] 05/14/2024 1:20 PM EDT Office Visit Gastroenterology, [facility] 310 [facility] [place] [phone] Cindy Elena, DO [address] [place] [address] 06/17/2024 11:00 AM EST Telemedicine Hematology/Oncology, [address] [address] Billy Basurto MD 400 [place] [address] 08/18/2024 3:40 PM EST [facility] [address] [place] [address] Hema Hercules PA-C 27 [place] [address] 08/26/2024 5:40 PM EST Office Visit Family [facility], [place] 21 [facility] [phone] Amor Pate MD [address] [place] [address] 09/10/2024 12:50 PM EST Office Visit Dermatology, Adwoa Green [place] [address] [place] 140 [place] [address] Marilyn Ozuna PA-C [address] [place] [address] 12/31/2024 1:00 PM EDT Cardiac Studies Cardiology, [place] 400 [place] [address] [place], Pacer Clinic 400 [facility] [place] [address] 02/04/2025 12:00 PM EDT Home Visit Care at Home [address] [place] [address] Carol Mathew PA-C [address] [place] [address] Scheduled Procedures Name Priority Associated Diagnoses Date/Ti [...] Additional history exists CKD PHOS USE SMARTSET 94941 08/22/202408/05, 08/20/2023, 11/07/2022, Additional history exists Albumin/Creatinine Ratio 12/05/2024 12/06/2023, 03/06 Depression Screening 02/03/2025 02/04/2024, 12/10/19 24 CKD HGB USE SMARTSET 43432 02/16/202502/16, 02/17/2024, 01/03/2024, Additional history exists DXA Scan 04/22/2025 04/22/2023, 04/05, 12/25/2018, Additional history exists Pneumococcal Vaccine: 65+ Years Completed 02/01/2016, 10/27/2002 VITAMIN D LEVEL ONCE IN A LIFETIME-USE SMARTSET# 99294 Completed 09/16/2023, 10/20/2019, 03/11/2012, Additional history exists [...] this encounter Medical Devices Implanted Type Area Radiology Ct Technologist Device Identifier Shelf Expiration Date Model / Serial / Lot Implant System, Trim-It Drill Pin [id number](.078" X 4" Implanted:Qty: 1 on 10/10/2017 by Sydney Castelan DPM at OR [facility] Right: Toe 04/04/2019 AR-4152DS / / [id number] Medtronic Attesta Surescan Pacemaker Implanted:Qty: 1 on 06/09/2020 by Chanel Lin DO at OR [facility] Left: Chest 08/01/2021 ATSR01 / [id number] / Nail Gamma3 Left [id number] - [id number] Implanted:Qty: 1 on 01/20/2021 by Alli Townsend MD at OR [facility] Left: Hip MILAN : TRAUMA 12/03/2023 3525-034 0S / / [id number] Screw Lag 10.5x95mm - [id number] Implanted:Qty: 1 on 01/20/2021 by Alli Townsend MD at OR [facility] Left: Hip MILAN : TRAUMA 11/02/2025 3060-009 5S / / [id number] Screw T2 Alpha Lock 5x47.5mm - [id number] Implanted:Qty: 1 on 01/20/2021 by Alli Townsend MD at OR [facility] Left: Hip MILAN : TRAUMA 05/04/2029 2360-504 7S / / [id number] documented as of this encounter Visit Diagnoses Diagnosis Pressure injury of buttock, stage 3, unspecified laterality (HCC)- Primary Ambulatory dysfunction Type 2 diabetes mellitus with stage 3a chronic kidney disease, without long-term current use of insulin (HCC) Generalized weakness Other malaise and fatigue documented in this encounter Advance Directives Documents on File Type Date Recorded Patient Research And Development Technician Expl anation POLST 07/15/2023 [place] OR [facility] FOR LIFE-SUSTAINING TREATMENT [...] First Alternate Health Care Agent Care Teams Tube Coremaker Relationship Specialty Start Date End Date Amor Pate MD 21 [place] [id number] PCP - General Family Medicine 12/06/22 documented as of this encounter
--- OUTSIDE RECORDS SUMMARY | 2024-08-18 16:30 | External Medical Summary | Summary of Care ---
Author Name Unknown Organization [facility] Address [address] [place] [address] Phone [phone] Care Team Providers Care Screwmaker Automatic Name Role Phone Amor Pate MD Primary Care Provider [phone] Reason for Referral * Evaluate & Treat [...] (HCC) Generalized weakness Amor Pate MD [address] [place] [address] Referral ID Status Reason Start Date Expiration Date Visits Requested Visits Authorized [id number] Authorized Specialty Services Required 02/26/2024 999 999 Question Answer Referral Priority Within 30 days (routine) Where should this appointment be scheduled? External Comments Documentation of [id number]-[id number]-[id number] Encounter Addendum Patient Name: Zulma Villar I certify that this patient is under my care and that I, or a nurse practitioner or physician's podiatrist assistant working with me, had a rekt-xs-rypt encounter that meets the physician usqu-ar-kvnr encounter requirements with this patient on: 12/10/23 [...] effort and are for medical reasons or sabianist services or infrequently or of short duration when for other reason) because: wheelchair Physician Signature: Date of Signature: Physician Printed Name: Amor Pate MD Reason for Visit * Reason Onset Date Comments Advice 02/24/2024 Referral 02/24/2024 PT and OT servic e 02/23 Encounter Details Date Type Department Care Team (Late st Contact Info) Description 02/24/2024 Telephone [facility] [address] [phone] Amor Pate [...] in the morning. 30 Tablet 07/14/2023 Active Kttlzoh-Rricelmdq-Wf tamin D ER 600-40-500 MG-MG-UNIT Tablet Extended [...] morning. 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 Name of preferred specialist: general staff Type of specialist: Physical and occupational therapy Location of specialist: in home for [facility] PT and OT Specialist's Phone #: [phone] Specialist's Fax #: [phone] Reason for visit: strengthening and overall mobility [...] 8:00 AM EDT Laboratory Lab Mobile Phlebotomy [facility] [address] [address] [facility], l Mobile Home Draw [address] [id number] Arrived 02/27/2024 6:00 AM EDT Anticoagulation [facility], Derrek Denton [address] [place] [address] [address] [address] [facility], [facility] [address] [place] [address] 03/02/2024 8:20 AM EDT Laboratory Lab Mobile Phlebotomy [facility] [address] [place] [address] [facility], [facility] Mobile Home Draw [address] [place] [address] 03/04/2024 2:00 PM EDT Appointment Radiology, [facility] [address] [place] [address] Prep, [facility] [address] [place] [address] 03/04/2024 4:00 PM EDT Home Visit [facility], [facility] [address] [place] [address] Allison Young RN [address] [place] [address] 04/01/2024 3:00 PM EDT Telemedicine [facility], [facility] [address] [facility] [place] [address] Kayla Thompson CRNP [address] [place] [address] Carol Blevins, Community [facility] Microgrinder Operator [address] [place] [address] 04/10/2024 11:30 AM EDT Scheduled Telephone [facility], [facility] [address] [facility] [address] [address] Cyndie Hilton RDN [address] [facility] [place] [address] 04/21/2024 1:00 PM EDT Office [address] [address] Sydney Castelan, MARIO [address] [facility] [address] 05/05/2024 2:00 PM EDT Office Visit [facility]iology, [facility] [address] [facility] [address] Stephanie Ramos PA-C [address] [facility] [address] 05/14/2024 1:20 PM EDT Office Visit Gastroenterology, [facility] [address] [facility] [place] [id number] Cindy Elena, DO [address] [place] [address] 06/17/2024 11:00 AM EST Telemedicine Hematology/Oncology, [address] [address] Billy Basurto MD [address] [place] [phone] 08/18/2024 3:40 PM EST [facility] [address] [address] Hema Hercules PA-C [address] [address] 08/26/2024 5:40 PM EST Office Visit [facility], [place] [address] [facility] [phone] Amor Pate MD [address] [place] [address] 09/10/2024 12:50 PM EST Office Visit Dermatology, [address] [facility] [address] [address] Marilyn Ozuna PA-C [address] [place] [address] 12/31/2024 1:00 PM EDT Cardiac Studies Cardiology, [facility] [place] [address] [facility] [place] [address] [place] [facility] [address] [facility] [place] [address] 02/04/2025 12:00 PM EDT Home Visit [facility] at Home [address] [place] [address] Carol Mathew PA-C [address] [place] [address] Scheduled Procedures Name Priority Associated Diagnoses Date/Ti [...] Additional history exists CKD PHOS USE SMARTSET 09313 08/22/202408/05, 08/20/2023, 11/07/2022, Additional history exists Albumin/Creatinine Ratio 12/05/2024 12/06/2023, 03/06 Depression Screening 02/03/2025 02/04/2024, 12/10/19 24 CKD HGB USE SMARTSET 03552 02/16/202502/16, 02/17/2024, 01/03/2024, Additional history exists DXA Scan 04/22/2025 04/22/2023, 04/05, 12/25/2018, Additional history exists Pneumococcal Vaccine: 65+ Years Completed 02/01/2016, 10/27/2002 VITAMIN D LEVEL ONCE IN A LIFETIME-USE SMARTSET# [id number] Completed 09/16/2023, 10/20/2019, 03/11/2012, Additional history exists [...] this encounter Medical Devices Implanted Type Area Monotype Machinist Device Identifier Shelf Expiration Date Model / Serial / Lot Implant System, Trim-It Drill Pin [id number]" X 4" Implanted:Qty: 1 on 10/10/2017 by Sydney Castelan DPM at OR [facility] Right: Toe 04/04/2019 [id number] / / [id number] Medtronic Attesta Surescan Pacemaker Implanted:Qty: 1 on 06/09/2020 by Chanel Lin DO at OR [facility] Left: Chest 08/01/2021 [id number] / [id number] / Nail [id number] Left [id number] - [id number] Implanted:Qty: 1 on 01/20/2021 by Alli Townsend MD at OR [facility] Left: Hip MILAN : TRAUMA 12/03/2023 3525-034 [id number] / / [id number] Screw Lag 10.5x95mm - [id number] Implanted:Qty: 1 on 01/20/2021 by Alli Townsend MD at OR [facility] Left: Hip MILAN : TRAUMA 11/02/2025 [id number] [id number] / / [id number] Screw T2 Alpha Lock 5x47.5mm - [id number] Implanted:Qty: 1 on 01/20/2021 by Alli Townsend MD at OR [facility] Left: Hip MILAN : TRAUMA 05/04/2029 [id number] [id number] / / [id number] documented as of this encounter Visit Diagnoses Diagnosis Pressure injury of buttock, stage 3, unspecified laterality (HCC)- Primary Ambulatory dysfunction Type 2 diabetes mellitus with stage 3a chronic kidney disease, without long-term current use of insulin (HCC) Generalized weakness Other malaise and fatigue documented in this encounter Advance Directives Documents on File Type Date Recorded 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
--- NOTE | 2024-08-18 16:51 | Communication Note ---
Date of Service: August 18, 2024 Attending Addendum: Case reviewed with the advanced practitioner. I have personally performed a history and physical examination on the patient. I have reviewed the advanced practitioner's documentation on the date of service referenced in note, and I agree with, and take responsibility for the plan of care. please refer to her notes for full details patient seen and examined, records reviewed by myself as well on exam, patient Seen resting in bed, sitting up, awake and alert, oriented x 3, answering questions appropriately Appears somewhat weak States she feels tired but otherwise feels okay Denies chest pain, shortness of breath, cough Reports difficulty with swallowing both solids and liquids, family also noticing she has been coughing with her meals, at 1 point, patient's caregiver had to induce vomiting as the patient was reporting food getting stuck in her chest Reports intermittent lower abdominal pain and dysuria no other symptoms VS noted and reviewed oriented x 3, not in distress, speaks in sentences with no effort nor accessory muscle use normal rate, regular rhythm, no murmurs Mild rhonchi scattered, on the left lung hines, clear on the right, no wheezing non distended, soft, nontender Trace bipedal edema, erythema, warmth no neuro deficits all labs, imaging noted and reviewed ASSESSMENT AND PLAN> Generalized weakness Possible left lower lobe pneumonia, likely with aspiration component Possible UTI IV ceftriaxone GI consult for dysphagia, food getting stuck in her chest Speech therapy eval Follow-up cultures Chronic HFpEF Currently appears on the dry side Hold diuretics other diagnoses and plan of care as per advanced practitioner's notes Cristiano Ortega MD
[2024-08-18] MEDS ORDERED: ONDANSETRON INJ 2 MG/ML 2 ML VIAL IV PRN (18:15)
[2024-08-18] MEDS: rOPINIRole HCL 0.25 MG TABLET PO SCH (21:33)
[2024-08-18] MEDS: DOXYCYCLINE HYCLATE 100 MG in DEXTROSE 5% MINI-B 100 ML IV SCH (21:34)
[2024-08-19 06:56] LABS: Mean Corpuscular Hemoglobin 29.5 pg (25.0-34.0); Mean Corpuscular Hgb Conc 31.4 g/dL (32.0-36.0); Mean Corpuscular Volume 93.8 fL (80.0-100.0); Mean Platelet Volume 12.5 fL (9.4-12.4); Platelet Count 120 K/uL (130-400); RDW Coefficient of Variation 14.8 % (11.5-14.5); RDW Standard Deviation 50.4 fL (36.4-46.3); Red Blood Count 3.73 M/uL (4.20-5.40); White Blood Count 5.36 K/ul (4.8-10.8)
[2024-08-19 07:23] LABS: INR 4.4 (0.9-1.1); Prothrombin Time 42.3 Seconds (9.0-12.0)
[2024-08-19 07:24] LABS: BUN Creatinine Ratio 27.1 (10-20); Calcium 9.1 mg/dl (8.6-10.3); Creatinine Clr Calc Pharmacy 54.9 ml/min; Potassium 4.2 mmol/L (3.5-5.1)
[2024-08-19] MEDS: SPIRONOLACTONE 25 MG TAB PO SCH (08:20)
[2024-08-19] MEDS: METOPROLOL SUCC 25MG EXT REL TAB PO SCH (08:20)
[2024-08-19] MEDS: SERTRALINE HCL 50 MG TABLET PO SCH (08:21)
[2024-08-19] MEDS: PANTOprazole 40 MG TAB PO SCH (08:21)
--- NOTE | 2024-08-19 10:45 | Hospitalist Progress Note ---
Date of Service August 19, 2024 Assessment & Plan (1) Acute metabolic encephalopathy: (2) Pneumonia: (3) Acute UTI: (4) Rhinovirus infection: (5) Ambulatory dysfunction: (6) Tachy-nikki syndrome: (7) Afib: (8) (HFpEF) heart failure with preserved ejection fraction: (9) DM II (diabetes mellitus, type II), controlled: Plan This is an 88-year-old female with PMH of atrial fibrillation on coumadin, tachybradycardia syndrome s/p pacemaker, labile HTN, type 2 diabetes, history of IPMN, HFpEF (EF:59% 2019), atherosclerosis of aorta, ambulatory dysfunction and other medical problems listed below who presents from home with worsening weakness and was found to have possible UTI, LLL PNA and rhino/enterovirus. Acute metabolic encephalopathy In setting of acute infection CT head without acute intracranial abnormalities Sx improving, A and O x 3 this a.m. Acute UTI Abnormal UA with 4+ bacteria Continue empiric Rocephin urine/blood NGTD Community-acquired pneumonia Enterovirus, rhinovirus on respiratory viral panel Chest x-ray with pulmonary vascular congestion, 2.5 cm left lower lung retrocardiac opacity which could represent small focus of pneumonia Per radiology, recommend PA and lateral chest radiographs in 1 month to ensure resolution and exclude possibility of pulmonary nodule Procalcitonin WNL Continue Rocephin as above, doxycycline Incentive spirometry - educated pt and instructed how to utilize Hallucinations pt son reports intermittent hallucinations likely due to pt underlying illness will check vitamin profile as well , D, B12 and TSH Dysphagia Mentioned by patient, family - worse in past week GI, speech consulted Aspiration precautions Ambulatory dysfunction Ambulates with walker at baseline but has been profoundly weak Fall precautions PT/OT evaluation Atrial fibrillation Continue Toprol INR still supratherapeutic, continue to hold warfarin no s/sx of bleeding repeat INR in a.m. Chronic HFpEF EF:59% 2019 no acute decompensation, currently euvolemic appears pt was taking lasix prn no indication to provide diuresis at this time, monitor daily add daily weights, Strict I and O and sodium restriction to diet Type 2 diabetes Hemoglobin A1c 5.6 in April Diet controlled BSG 87, 91, monitor FBS, no indication for ISS at this time given age Goals of care - formerly on hospice for a few months now hospice status revoked Per discussion with patient (who currently has decision making capacity) and son/POAsad Griffith at baseline, seems goals and parameters of hospice were not well understood a few months ago and patient revoked status yesterday. Desires treatment with antibiotics and IV fluids. Would not want to pursue a feeding tube should that ever be recommended. Confirmed with patient and son at bedside patient desires to be a FULL CODE. DVT Ppx: warfarin on hold due to supratherapeutic INR Code status: FULL PCP: [place] Dispo: admitted to med/surg Patient seen in collaboration with Dr. Ray. Please see addendum. I spent a total of 45 minutes coordinating, documenting, and providing care for this patient excluding time spent in the performance of separately billed services. Alondra (daughter): [phone] Nacho (son): [phone] Spoke to Nacho at bedside and discussed mothers care. He will leave to go back to [place] on Saturday. He is hopeful to tie up loose ends. He is worried how his Mom will get home. He wishes for all medical decisions to go through him or Alondra. Admission and Anticipated Discharge Date Admission Date: August 18, 2024 Supervising Physician Co-Signing Physician Notes Patient seen and examined I spent a total of 30 minutes coordinating, documenting and providing care for this patient excluding time spent in performance of separately billed services Subjective Pt seem in room 315. F/U PNA/UTI. She offers no acute concerns. She reports feeling much better today. She didn't sleep well, because she has bad dreams. She dreamt she was stuck in a snow storm and couldn't get home. She denies f/c/s, chest pain, sob, n/v. Review of Systems Review of Systems: All systems reviewed & are unremarkable except as noted in HPI & below Physical Exam Physical Exam: Gen: Elderly, F, sitting up in bedside chair, NAD, A&O x3 HEENT: Normocephalic, atraumatic, conjunctivae moist, sclerae anicteric, mucous membranes moist. Lung: Clear to Auscultation bilaterally,scant wheezing UL clears with cough, otherwise no rales/rhonchi Heart: Regular rate, regular rhythm, no murmurs, rubs, or gallops Abdomen: Soft, NT, ND +BS x 4 Extremities: No edema Skin: Warm, no rash, negative turgor. Results & Data Results & Data Vital Signs (Past 12 Hours) Vital Signs Temp Pulse Resp BP Pulse Ox O2 Del Method 08/19/24 07:45 36.5 C 61 14 142/72 H 95 Room Air 08/19/24 07:19 36.9 C 62 18 167/90 H 95 Room Air Laboratory Results Short CBC 08/18/24 08/19/24 Range/Units 11:15 06:33 WBC 5.97 5.36 (4.8-10.8) K/ul Hgb 10.8 L 11.0 L (12.0-16.0) g/dl Hct 34.7 L 35.0 L (37.0-47.0) % Plt Count 127 L 120 L (130-400) K/uL BMP 08/18/24 08/19/24 11:15 06:33 Sodium 141 142 Potassium 4.7 4.2 Chloride 109 H 109 H Carbon Dioxide 30 25 BUN 28 H 19 Creatinine 0.78 0.70 Glucose 79 92 Calcium 9.5 9.1 Liver Function 08/18/24 Range/Units 11:15 Total Bilirubin 0.4 (0.2-1.0) mg/dl Direct Bilirubin 0.1 (0-0.2) mg/dl AST 27 (13-39) U/L ALT 20 (7-52) U/L Alkaline Phosphatase 78 (34-104) U/L Albumin 4.1 (3.4-5.0) gm/dl Urine 08/18/24 Range/Units 11:56 Urine Color Yellow Urine Appearance Clear (Clear) Urine pH 5.5 (4.5-7.5) Ur Specific [place] 1.022 (1.000-1.030) Urine Protein Negative (Negative) Urine Glucose (UA) Negative (Negative) I have independently reviewed and interpreted patient's CBC, BMP, PT/INR Medications Administered Current Inpatient Medications Acetaminophen (Acetaminophen 325 Mg Tab) 650 mg PO Q4H PRN PRN Reason: pain/fever Stop: 09/17/24 18:14 Doxycycline Hyclate 100 mg/ (Dextrose) 100 mls @ 50 mls/hr IV Q12H [facility] Stop: 08/23/24 20:59 Last Infusion: 08/19/24 10:49 Dose: Infused Ceftriaxone Sodium (Rocephin) 2,000 mg in 50 mls @ 100 mls/hr IV Q24H [facility]; Protocol Stop: 08/24/24 13:59 Metoprolol Succinate (Metoprolol Succ 25mg Ext Rel Tab) 12.5 mg [facility] [place] Stop: 09/18/24 08:59 Last Admin: 08/19/24 08:20 Dose: 12.5 mg Ondansetron HCl (Ondansetron Inj 2 Mg/Ml 2 Ml Vial) 4 mg IV Q6H PRN PRN Reason: Nausea Stop: 09/17/24 18:14 Pantoprazole Sodium (Pantoprazole 40 Mg Tab) 40 mg PO [facility] Stop: 09/18/24 08:59 Last Admin: 08/19/24 08:21 Dose: 40 mg Polyethylene Glycol (Polyethylene (Miralax) 17 Gm Pack) 17 gm PO DAILY PRN PRN Reason: Constipation Stop: 09/17/24 18:14 Ropinirole HCl (Ropinirole Hcl 0.25 Mg Tablet) 0.25 mg PO BID [facility] Stop: 09/17/24 20:59 Last Admin: 08/19/24 08:21 Dose: 0.25 mg Sennosides (Senna 8.6 Mg Tab) 8.6 mg PO DAILY PRN PRN Reason: Constipation Stop: 09/17/24 18:14 Sertraline HCl (Sertraline Hcl 50 Mg Tablet) 50 mg PO [facility] Stop: 09/18/24 08:59 Last Admin: 08/19/24 08:21 Dose: 50 mg Spironolactone (Spironolactone 25 Mg Tab) 25 mg PO MoWeFr@0900 [facility] Stop: 09/18/24 08:59 Last Admin: 08/19/24 08:20 Dose: 25 mg (2) Pneumonia Laterality: left Lung location: lower lobe of lung Pneumonia type: due to unspecified organism Qualified Code(s): J18.9 - Pneumonia, unspecified organism
--- NOTE | 2024-08-19 11:48 | Gastrointestinal Consultation ---
Date of Consultation August 19, 2024 Assessment & Plan (1) Dysphagia: Plan Patient tells me that her dysphagia is not a new issue and has been ongoing for several years. These issues are likely age related. - will await speech pathology evaluation. - would not consider endoscopy at this time for this chronic issue given current infections. Supervising Physician Co-Signing Physician Notes Daughter and son noted long-term dysphagia. Patient feels that food gets stuck in the upper esophageal substernal area. She will then drool and have trouble with her secretions. Patient states she wishes to investigate due to the prompting of both her daughter and now her son. Patient has an elevated INR. She is obviously older and frail. Oropharyngeal dysphagia is not excluded. I think the least invasive investigation at this point would be a barium esophagram. If this shows reasonable swallowing and no esophageal stricture then the management would be symptomatic. If there is a definite stricture then endoscopic intervention with dilatation had an INR of 1.5 or less could be undertaken. The family seem very interested in pursuing this. History of Present Illness Reason for Consultation: dysphagia Requesting Physician: Cristiano Ortega MD Attending Physician: Janis Ray MD History of Present Illness Patient is an 88 year old female with a past medical history of atrial fibrillation on coumadin, tachybradycardia syndrome s/p pacemaker, labile HTN, type II diabetes, history of IPMN, HFpEF (EF:59% 2020), atherosclerosis of aorta, ambulatory dysfunction who presented to the ED on 08/18 with worsening weakness and was found to have UTI, Left lower lobe pnuemonia, and rhino/enterovirus. GI was asked to see for reports of dysphagia. Patient tells me that this has been going on for years and is not a new issue. she has never had evaluated in the past. She tells me foods and liquids tend to stick in her throat. no nausea, vomiting, abdominal pain, changes in bowels. Allergies Allergy/AdvReac Type Severity Reaction Status Date / Time No Known Allergies Allergy Verified 08/18/24 18:24 Home Medications Medication Instructions Recorded Confirmed Type metoprolol succinate 25 mg 12.5 mg PO QAM 02/03/19 08/18/24 History tablet,extended release 24 hr omeprazole 20 mg tablet,delayed 20 mg PO QAM 02/03/19 08/18/24 History release spironolactone 25 mg tablet 25 mg PO 3XWK 02/03/19 08/18/24 History sertraline 50 mg tablet 50 mg PO QAM 12/26/23 08/18/24 History acetaminophen 325 mg tablet 650 mg PO Q6H PRN Pain/Fever 08/18/24 08/18/24 History furosemide 20 mg tablet 20 mg PO DAILY PRN Edema 08/18/24 08/18/24 History ropinirole 0.25 mg tablet 0.25 mg PO TID 08/18/24 08/19/24 History sennosides 8.6 mg tablet 8.6 mg PO DAILY PRN Constipation 08/18/24 08/18/24 History warfarin 2 mg tablet 2 mg PO TUWETHSA@1600 08/18/24 08/18/24 History warfarin 4 mg tablet 4 mg PO MOFR@1600 08/18/24 08/18/24 History calcium 600 mg (as 1 cap PO DAILY 08/19/24 08/19/24 History carbonate)-vitamin D3 10 mcg (400 unit) capsule cholecalciferol (vitamin D3) 25 25 mcg PO DAILY 08/19/24 08/19/24 History mcg (1,000 unit) capsule (Vitamin D3) cyanocobalamin (vitamin B-12) 500 500 mcg PO 2XWK 08/19/24 08/19/24 History mcg tablet folic acid 800 mcg tablet 0.8 mg PO DAILY 08/19/24 08/19/24 History multivitamin 1 tab PO DAILY 08/19/24 08/19/24 History tramadol 50 mg tablet 50 mg PO Q6H PRN Pain, Severe 08/19/24 08/19/24 History Patient History Medical History (Updated 08/19/24 @ 11:46 by Andrew Casillas PA-C) DM II (diabetes mellitus, type II), controlled (HFpEF) heart failure with preserved ejection fraction 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 Afib chronic; on warfarin Surgical History Cataract Family History Sister Family history of cancer Grandmother Family history of leukemia Social History Smoking Status: Never smoker Second Hand Exposure: No; Do You Dip or Chew Tobacco: No; Hx Alcohol Use: No Hx Substance Use: No Preferred Language: Maori Communication Ability: Effective Residence Manager Required: No Beliefs That Will Affect Care: None Current Living Situation: Spouse Other Information That Helps Us Care for You: No Feels Safe at Home: Yes Safety Concerns: Feels Safe At This Time Assistive Devices: Glasses, Stair Lift, Walker and Wheelchair Review of Systems Review of Systems: All systems reviewed & are unremarkable except as noted in HPI & below Physical Exam Physical Exam: frail appearing Respiratory: normal respiratory effort, lungs clear to auscultation Cardiovascular: Rate/Rhythm: regular rate and regular rhythm Gastrointestinal (Abdomen): normal bowel sounds, soft, nontender, no hepatosplenomegaly Psychiatric: Orientation: alert and oriented x 3 Affect: euthymic affect Results & Data Vital Signs (Past 12 Hours) Vital Signs Temp Pulse Resp BP Pulse Ox O2 Del Method 08/19/24 07:45 97.7 F 61 14 142/72 H 95 Room Air 08/19/24 07:19 98.4 F 62 18 167/90 H 95 Room Air Coding Level of Care Code 41281 INT INP/OBS CARE 2/55MIN Diagnoses Dysphagia R13.10
[2024-08-19] MEDS: cefTRIAXone SODIUM 2,000 MG/50 ML BAG IV SCH (14:06)
--- NOTE | 2024-08-19 17:17 | Electrocardiogram Report ---
Test Reason : Blood Pressure : */* mmHG Vent. Rate : 74 BPM Atrial Rate : 63 BPM P-R Int : * ms QRS Dur : 170 ms QT Int : 418 ms P-R-T Axes : * -58 109 degrees QTcB Int : 463 ms Ventricular-paced rhythm Abnormal ECG When compared with ECG of 10-Feb-2019 11:43, No significant change Confirmed by Kaleb Mendez ([id number]) on 08/19/2024 5:16:58 PM Referred By: REFERRED SELF Confirmed By: Kaleb Mendez
[2024-08-19] MEDS: DOXYCYCLINE HYCLATE 100 MG CAP PO SCH (20:07)
[2024-08-20] MEDS: ACETAMINOPHEN 325 MG TAB PO PRN (00:01)
[2024-08-20 09:55] LABS: Hematocrit (blood only) 31.2 % (37.0-47.0); Mean Corpuscular Hemoglobin 29.8 pg (25.0-34.0); Mean Corpuscular Hgb Conc 32.1 g/dL (32.0-36.0); Mean Corpuscular Volume 92.9 fL (80.0-100.0); Mean Platelet Volume 12.3 fL (9.4-12.4); Platelet Count 117 K/uL (130-400); RDW Coefficient of Variation 14.8 % (11.5-14.5); RDW Standard Deviation 50.6 fL (36.4-46.3); Red Blood Count 3.36 M/uL (4.20-5.40); White Blood Count 5.85 K/ul (4.8-10.8)
[2024-08-20 10:03] LABS: BUN Creatinine Ratio 25.3 (10-20); Calcium 8.9 mg/dl (8.6-10.3); Creatinine Clr Calc Pharmacy 44.2 ml/min; Potassium 4.3 mmol/L (3.5-5.1)
--- NOTE | 2024-08-20 10:15 | Gastroenterology Progress Note ---
Date of Service August 20, 2024 Assessment & Plan (1) Dysphagia: Plan: Received notice that she is unable to have barium swallow due to inability to stand unassisted. Discussed case with Dr. Castillo. As long a patient is deemed stable for procedure and INR is less than 1.5, can attempt an EGD to further evaluate on 08/21/24. Admission and Anticipated Discharge Date Admission Date: August 18, 2024 Supervising Physician Co-Signing Physician Notes Speech pathology suggest this is not a oropharyngeal problem. Son and daughter are interested in proceeding with an endoscopic evaluation. Though this will depend on her clinical stability and correction of the INR. An INR of 1.5 or lower is acceptable for an esophageal dilatation. Reviewed at the bedside with the son and the hospitalist. Will reassess tomorrow both the clinical situation and IR to decide if EGD is a go. Subjective Patient had ugandan toast for breakfast and tells me she was able to tolerate this. we received a message this morning that patient would not be able to have a barium swallow secondary to being unable to stand. Review of Systems Review of Systems: All systems reviewed & are unremarkable except as noted in HPI & below Physical Exam Physical Exam: frail appearing Respiratory: normal respiratory effort, lungs clear to auscultation Cardiovascular: Rate/Rhythm: regular rate and regular rhythm Gastrointestinal (Abdomen): normal bowel sounds, soft, nontender, no hepatosplenomegaly Psychiatric: Orientation: alert and oriented x 3 Results & Data Results & Data Vital Signs (Past 12 Hours) Vital Signs Temp Pulse Resp BP Pulse Ox O2 Del Method 08/20/24 08:06 97.9 F 67 18 147/79 H 93 Room Air 08/20/24 07:20 Room Air Coding Level of Care Code 92381 SUB INP/OBS CARE 2/35MIN Diagnoses Dysphagia R13.10
[2024-08-20 10:16] LABS: INR 3.3 (0.9-1.1); Prothrombin Time 32.4 Seconds (9.0-12.0)
[2024-08-20 10:17] LABS: Thyroid Stimulating Hormone 2.843 uIu/ml (0.300-4.500)
--- NOTE | 2024-08-20 11:24 | Hospitalist Progress Note ---
Date of Service August 20, 2024 Assessment & Plan (1) Acute metabolic encephalopathy: (2) Pneumonia: (3) Acute UTI: (4) Rhinovirus infection: (5) Ambulatory dysfunction: (6) Tachy-nikki syndrome: (7) Afib: (8) (HFpEF) heart failure with preserved ejection fraction: (9) DM II (diabetes mellitus, type II), controlled: Plan This is an 88-year-old female with PMH of atrial fibrillation on coumadin, tachybradycardia syndrome s/p pacemaker, labile HTN, type 2 diabetes, history of IPMN, HFpEF (EF:59% 2019), atherosclerosis of aorta, ambulatory dysfunction and other medical problems listed below who presents from home with worsening weakness and was found to have possible UTI, LLL PNA and rhino/enterovirus. Acute metabolic encephalopathy In setting of acute infection CT head without acute intracranial abnormalities More notable delirium today - at bedside says she has been having visual hallucinations for the last few years intermittently Checked vitamin D, B12 and TSH - reassuring Delirium precautions, reorientation - 2/2 infection vs. ? underlying dementia Possible UTI Continue ceftriaxone Community-acquired pneumonia Enterovirus, rhinovirus on respiratory viral panel Chest x-ray with pulmonary vascular congestion, 2.5 cm left lower lung retrocardiac opacity which could represent small focus of pneumonia Per radiology, recommend PA and lateral chest radiographs in 1 month to ensure resolution and exclude possibility of pulmonary nodule Procalcitonin WNL Continue Rocephin as above, doxycycline Incentive spirometry - educated pt and instructed how to utilize Dysphagia Mentioned by patient, family - worse in past week GI, speech consulted - planning to go EGD in AM if INR <1.5 Long discussion with SANG Griffith today about benefits vs risk - discussing with his sister and will let us know if they want to pursue Speech eval - Easy to chew diet with thin liquids, recommended barium swallow to address esophageal function but patient unable to stand so study not possible today Continue aspiration precautions Ambulatory dysfunction Ambulates with walker at baseline but has been profoundly weak Fall precautions PT/OT evaluation - recommending rehab Atrial fibrillation Continue Toprol INR still supratherapeutic, continue to hold warfarin 4.4 -> 3.3 no s/sx of bleeding repeat INR in a.m. Chronic HFpEF EF:59% 2019 no acute decompensation, currently euvolemic appears pt was taking lasix prn no indication to provide diuresis at this time, monitor daily add daily weights, Strict I and O and sodium restriction to diet Type 2 diabetes Hemoglobin A1c 5.6 in April Diet controlled BSG 87, 91, monitor FBS, no indication for ISS at this time given age Goals of care - formerly on hospice for a few months now hospice status revoked Per discussion with patient (who currently has decision making capacity) and son/SANG Griffith at baseline, seems goals and parameters of hospice were not well understood a few months ago and patient revoked status yesterday. Desires treatment with antibiotics and IV fluids. Would not want to pursue a feeding tube should that ever be recommended. Confirmed with patient and son at bedside patient desires to be a FULL CODE. DVT Ppx: warfarin on hold due to supratherapeutic INR Code status: FULL PCP: [facility] Dispo: admitted to med/surg Patient seen in collaboration with Dr. Ray. Please see addendum. I spent a total of 60 minutes coordinating, documenting, and providing care for this patient excluding time spent in the performance of separately billed services. Alondra (daughter): [phone] Nacho (son): [phone] Spoke to Nacho at bedside and discussed mother's care. He will leave to go back to [place] on Saturday. He is hopeful to tie up loose ends. He is worried how his Mom will get home. He wishes for all medical decisions to go through him or Alondra. Admission and Anticipated Discharge Date Admission Date: August 18, 2024 Supervising Physician Co-Signing Physician Notes Patient seen and examined I spent a total of 20 minutes coordinating, documenting and providing care for this patient excluding time spent in performance of separately billed services Subjective Seen and examined in 315-1. No acute concerns but appears more delirious today. at bedside mentions she did not sleep well last night. Has had intermittent delirium for the past few years but seems more pronounced over the past month. No F/C, CP, SOB, N/V. Review of Systems Review of Systems: Unobtainable due to cognitive status Physical Exam Physical Exam: Gen: Elderly, F, sitting up in bedside chair, NAD, A&O to self only, + delirious HEENT: Normocephalic, atraumatic, conjunctivae moist, sclerae anicteric, mucous membranes moist Lung: Clear to Auscultation bilaterally, scant wheezing UL clears with cough, otherwise no rales/rhonchi Heart: Regular rate, regular rhythm, no murmurs, rubs, or gallops Abdomen: Soft, NT, ND +BS x 4 Extremities: No edema Skin: Warm, no rash Results & Data Results & Data Vital Signs (Past 12 Hours) Vital Signs Temp Pulse Resp BP Pulse Ox O2 Del Method 08/20/24 08:06 36.6 C 67 18 147/79 H 93 Room Air 08/20/24 07:20 Room Air Laboratory Results Short CBC 08/20/24 Range/Units 09:20 WBC 5.85 (4.8-10.8) K/ul Hgb 10.0 L (12.0-16.0) g/dl Hct 31.2 L (37.0-47.0) % Plt Count 117 L (130-400) K/uL BMP 08/20/24 09:20 Sodium 142 Potassium 4.3 Chloride 111 H Carbon Dioxide 25 BUN 21 Creatinine 0.83 Glucose 123 H Calcium 8.9 Diagnostic Findings Chest X-Ray 08/18/24 11:54 XR chest 1V portable CLINICAL HISTORY: weak COMPARISON STUDY: Chest radiograph February 10, 2019. FINDINGS: Left subclavian pacer lead is coiled. Moderate cardiomegaly is unchanged. There is pulmonary vascular congestion without overt pulmonary edema. 2.5 cm left lower lung retrocardiac opacity is present. There is no pneumothorax or pleural effusion. Lung volumes are mildly diminished. IMPRESSION: 1. Cardiomegaly with pulmonary vascular congestion. 2. 2.5 cm left lower lung retrocardiac opacity. This could represent atelectasis or a small focus of pneumonia. PA and lateral chest radiographs in one month are recommended to ensure resolution and exclude the possibility of a pulmonary nodule. ACT 112: Negative or not required by law. Electronically signed by: Shukri Manuel M.D. 08/18/2024 1:[address] 08/18/24 11:54 CT head/brain wo con CLINICAL HISTORY: 88 years-old Female with confusion. Acutely altered mental status TECHNIQUE: Multiple axial CT images of the head were obtained without contrast. A dose lowering technique was utilized adhering to the principles of ALARA. CT DOSE: 547.75 mGy.cm COMPARISON: None. FINDINGS: No acute intracranial hemorrhage, midline shift, intracranial mass, hydrocephalus, territorial ischemia or abnormal extra-axial collection. Involutional changes with white matter hyperintensities suggestive of chronic microvascular ischemic disease. The calvarium is intact. The paranasal sinuses, mastoid air cells, and middle ear cavities are clear. IMPRESSION: No acute intracranial abnormality. ACT 112: Negative or not required by law. The above report was generated using voice recognition software. It may contain grammatical, syntax or spelling errors. Electronically signed by: Christ Carrillo M.D. 08/18/2024 12:30 PM Knee X-Ray 08/18/24 15:42 XR knee LT 1 or 2V routine HISTORY: 88 years-old Female pain, r/o fracture acute pain of the left knee status post trauma COMPARISON: None TECHNIQUE: 2 views of the left knee FINDINGS: Arterial calcifications. Partially imaged intramedullary gal of the distal femur. Tricompartment osteoarthritis of the knee, moderate in the medial patellofemoral compartments and severe within the lateral compartment. Intramedial soft tissue swelling with small joint effusion. IMPRESSION: No acute fracture or dislocation. ACT 112: Negative or not required by law. The above report was generated using voice recognition software. It may contain grammatical, syntax or spelling errors. Electronically signed by: Christ Carrillo M.D. 08/18/2024 4:00 PM (2) Pneumonia Laterality: left Lung location: lower lobe of lung Pneumonia type: due to unspecified organism Qualified Code(s): J18.9 - Pneumonia, unspecified organism
[2024-08-20] MEDS: POLYETHYLENE (MIRALAX) 17 GM PACK PO PRN (17:25)
[2024-08-20] MEDS: SENNA 8.6 MG TAB PO PRN (17:25)
[2024-08-20] MEDS ORDERED: metroNIDAZOLE 500 MG TAB PO SCH (21:00)
[2024-08-21 07:58] LABS: INR 2.5 (0.9-1.1); Prothrombin Time 24.8 Seconds (9.0-12.0)
--- NOTE | 2024-08-21 09:52 | Communication Note ---
Date of Service: August 21, [address] Castillo. Patient's family had decided against EGD. INR would not have been in appropriate range for today. Please recall GI if needed.
--- NOTE | 2024-08-21 13:31 | Hospitalist Progress Note ---
Date of Service August 21, 2024 Assessment & Plan (1) Acute metabolic encephalopathy: (2) Pneumonia: (3) Acute UTI: (4) Rhinovirus infection: (5) Ambulatory dysfunction: (6) Tachy-nikki syndrome: (7) Afib: (8) (HFpEF) heart failure with preserved ejection fraction: (9) DM II (diabetes mellitus, type II), controlled: Plan This is an 88-year-old female with PMH of atrial fibrillation on coumadin, tachybradycardia syndrome s/p pacemaker, labile HTN, type 2 diabetes, history of IPMN, HFpEF (EF:59% 2019), atherosclerosis of aorta, ambulatory dysfunction and other medical problems listed below who presents from home with worsening weakness and was found to have possible UTI, LLL PNA and rhino/enterovirus. Acute metabolic encephalopathy In setting of acute infection CT head without acute intracranial abnormalities More notable delirium today - at bedside says she has been having visual hallucinations for the last few years intermittently Checked vitamin D, B12 and TSH - reassuring Delirium precautions, reorientation - 2/2 infection vs. suspected underlying dementia Per chart review, cerebral atrophy documented in 11/27 present on previous brain imaging Blood cultures negative to date, remains afebrile Possible UTI Urine culture with <50K CFU Gardnerella vaginalis, no sensitivities to follow - no indication to treat, still on rocephin as blwo Community-acquired pneumonia Enterovirus, rhinovirus on respiratory viral panel Chest x-ray with pulmonary vascular congestion, 2.5 cm left lower lung retrocardiac opacity which could represent small focus of pneumonia Per radiology, recommend PA and lateral chest radiographs in 1 month to ensure resolution and exclude possibility of pulmonary nodule Procalcitonin WNL Continue Rocephin as above, doxycycline EOT 08/23 Incentive spirometry - educated pt and instructed how to utilize Dysphagia Mentioned by patient, family - worse in past week GI, speech consulted - long discussion with SANG Griffith, patient's - do not want to pursue EGD testing at this time Speech eval - Easy to chew diet with thin liquids, recommended barium swallow to address esophageal function but patient unable to stand so study not possible today Continue aspiration precautions Ambulatory dysfunction Ambulates with walker at baseline but has been profoundly weak Fall precautions PT/OT evaluation - recommending SNF rehab Atrial fibrillation Continue Toprol INR back in range - continue coumadin at 2mg daily Monitor INR No s/sx of bleeding Chronic HFpEF EF:59% 2019 No acute decompensation, currently euvolemic Appears pt was taking lasix prn No indication to provide diuresis at this time, monitor daily Added daily weights, Strict I and O, Na restricted diet Type 2 diabetes Hemoglobin A1c 5.6 in April Diet controlled BSG 87, 91, monitor FBS, no indication for ISS at this time given age Goals of care - formerly on hospice for a few months now hospice status revoked Per chart review, patient was enrolled in [facility] 06/29/24 as a means of providing an extra layer of care due to decline in overall health over past 6 months. Per discussion with patient (who currently has decision making capacity) and son/POAsad Griffith at baseline, seems goals and parameters of hospice were not well understood a few months ago and patient revoked status yesterday. Desires treatment with antibiotics and IV fluids. Would not want to pursue a feeding tube should that ever be recommended. Confirmed with patient and son at bedside patient desires to be a FULL CODE. DVT Ppx: warfarin resumed Code status: FULL PCP: [facility] Dispo: admitted to med/surg Patient seen in collaboration with Dr. Ray. Please see addendum. I spent a total of 40 minutes coordinating, documenting, and providing care for this patient excluding time spent in the performance of separately billed services. Will update Nacho today. Need to consider palliative care consult to better clarify goals of care/ expectations Alondra (daughter): [phone] Nacho (son): [phone] Admission and Anticipated Discharge Date Admission Date: August 18, 2024 Supervising Physician Co-Signing Physician Notes Patient seen and examined I spent a total of 20 minutes coordinating, documenting and providing care for this patient excluding time spent in performance of separately billed services Subjective Seen and examined in 315-1. Lethargic on exam this AM but awakens to answer questions appropriately, follow commands. Has had intermittent delirium for the past few years but seems more pronounced over the past month but generally more alert. No F/C, CP, SOB, N/V. Review of Systems Review of Systems: Unobtainable due to cognitive status Physical Exam Physical Exam: Gen: Elderly, F, sleeping in bed, NAD, lethargic but awakens to questions and answers, able to follow commands, A&O x2 HEENT: Normocephalic, atraumatic, conjunctivae moist, sclerae anicteric, mucous membranes moist Lung: Clear to Auscultation bilaterally, scant wheezing UL clears with cough, otherwise no rales/rhonchi Heart: Regular rate, regular rhythm, no murmurs, rubs, or gallops Abdomen: Soft, NT, ND +BS x 4 Extremities: No edema Skin: Warm, no rash Results & Data Results & Data Vital Signs (Past 12 Hours) Vital Signs Temp Pulse Resp BP Pulse Ox O2 Del Method 08/21/24 07:33 36.4 C L 79 16 172/91 H 93 Room Air (2) Pneumonia Laterality: left Lung location: lower lobe of lung Pneumonia type: due to unspecified organism Qualified Code(s): J18.9 - Pneumonia, unspecified organism
[2024-08-21] MEDS: WARFARIN SOD 2 MG TAB PO SCH (16:10)
--- NOTE | 2024-08-22 06:39 | Hospitalist Progress Note ---
Date of Service August 22, 2024 Assessment & Plan (1) Acute metabolic encephalopathy: (2) Left lower lobe pneumonia: (3) Rhinovirus infection: (4) Dysphagia: (5) Ambulatory dysfunction: Plan Zulma Villar is an 88y/o F with PMHx significant for afib on Coumadin, tachy- nikki syndrome s/p pacemaker placement, labile HTN, DMII, history of IPMN, HFpEF [EF=59%, 2020], atherosclerosis of aorta, ambulatory dysfunction and other medical problems listed below who presented to the ED from home on 08/18/2024 with worsening weakness and was found to have a possible UTI, LLL PNA and entero-/rhinovirus. Acute Metabolic Encephalopathy: Likely ISO acute infection. CT head w/o any acute intracranial abnormalities. Blood cultures NGTD. H/O intermittent confusion/bad dreams x several years; new intermittent hallucinations x 1 month now. Check vit D, via B12 and TSH - reassuring. Lethargic today but easily oriented. Continue delirium precautions. Continue frequent reorientation. Delirium 2/2 infection vs. superimposed on suspected underlying dementia; Cerebral atrophy noted on previous o/p imaging reviewed in Epic records - can contribute to memory loss, coordination issues. Possible UTI - Suspect Asymptomatic Bacteriuria: UA on admission w/ 4+ bacteria. Was on empiric IV Rocephin for UTI concerns ISO acute CAP as outlined below. Urine culture w/ <50k CFU/mL Gardnerella vaginalis, no sensitives to follow. No indication to treat; however still on Rocephin for CAP tx. LLL PNA - Suspect Possible Aspiration Component Entero-/Rhinovirus Positive on Respiratory BioFire Panel: CXR on presentation --> 2.5cm LLL retrocardiac opacity c/f PNA vs atelectasis. Suspect possible aspiration component as patient has been experiencing worsening dysphagia as mentioned below. Positive for entero-/rhinovirus on BioFire respiratory panel. Procalcitonin WNL. Covering with IV Rocephin + po doxycycline [EOT tomorrow, 08/23]. Added on probiotic. Continue pulmonary toileting. Per radiology --> recommend PA and lateral chest radiographs in 1 month to ensure resolution and exclude the possibility of a pulmonary nodule. Chronic Dysphagia: Mentioned by patient, family - has been ongoing x several years, however seems worse in the past few weeks prior to admission. GI consulted. Patient unable to have barium swallow due to inability to stand unassisted. GI was going to attempt EGD, however patient's son/POA (Nacho) and decided against EGD on 08/21. INR was not in appropriate range either way on 08/21. Speech eval --> Easy to chew diet with thin liquids; recommended barium swallow to address esophageal function but patient unable to tolerate this procedure as per above. Ambulatory Dysfunction: Ambulates with walker at baseline but has been profoundly weak as of recently. Patient with poor PT/OT tolerance. PT/OT recommending SNF placement; referrals placed to [facility] - [facility] and [facility]. Continue fall precautions. Afib on Coumadin: Continue Toprol; INR back in range - continue Coumadin at 2mg daily for now. No signs/sx of bleeding. Patient follows / [facility]. Previous Coumadin dosing prior to admission --> 4mg every Mon/Fri; 2mg all other days. Daily INR. Chronic HFpEF: TTE 05/2020 --> LVEF = 59%, biatrial dilatation, moderately elevated RV systolic pressure. Daily weights, strict I&Os. No acute decompensation, remains euvolemic on exam. Appears patient was on PRN Lasix; no indication for diuresis at this time. Low sodium diet. DM Type II: Hgb A1c 5.6% in 04/2024. Diet-controlled. Monitor BSG; no indication for SSI coverage at this time given age. Goals of Care - Formerly on Hospice, Now Revoked: Patient was previously on [facility]; appears she was placed on hospice initially on 06/29/2024 secondary to decline in her overall health over the course of 6 months. The goal of hospice was to provide her with an additional layer of support in her care team as well as help her to reach her goals of care at home. Patient revoked her hospice status as of 08/17/2024 per her Epic records. Seems goals and parameters of hospice care were not well understood by the patient and her family; family was dissatisfied with her care and did not understand that she would not be receiving active treatment/labs while on hospice. Patient desires treatment with ABX and IVF. Would not want to pursue a feeding tube should that ever be recommended. Previous AR confirmed with patient and patient's son/POA (Nacho) that she desires to be a FULL CODE. Planning to call Nacho later this afternoon [ ]; will confirm code status once again and discuss whether or not he would like to pursue possible palliative discussion moving forward to clarify GOC/expectations. DVT Prophylaxis: Coumadin resumed, continue w/ daily INR monitoring. Code Status: FULL CODE - As per above. PCP: Amor Pate MD Disposition: Currently admitted in Med/Surg; Medically stable for discharge once SNF placement is available. Patient seen in collaboration with Dr. Ray. Please see addendum. I spent a total of 40 minutes coordinating, documenting, and providing care for this patient excluding time spent in the performance of separately billed services. This included personally reviewing all current laboratories and imaging studies, medical reconciliation, outpatient chart review and discussion with specialists. This chart was completed in part utilizing Speech Voice Recognition Software. Grammatical errors, random word insertions, pronoun errors, and incomplete sentences are an occasional consequence of this system due to software limitations, ambient noise, and hardware issues. Any formal questions or concerns about the content, text, or information contained within the body of this dictation should be directly addressed to the provider for clarification. Admission and Anticipated Discharge Date Admission Date: August 18, 2024 Subjective Patient seen and examined at bedside in room E315-1 this morning. Appears still quite lethargic on exam however she awakens easily and answers questions appropriately/follows simple commands. She denies any SOB or chest pain. Mentions she was up a few times throughout the night to use the restroom/pass BMs. She fed herself breakfast this morning without assistance from the DIRECTOR OF [employer]ET[employer]. Witnessed her tolerating sips of coffee without much issue while I was in the room. Family decided against EGD yesterday to further evaluate her dysphagia; INR was not in the appropriate range for the procedure either way (INR of 1.5 or lower is acceptable for an esophageal dilatation). Patient with intermittent delirium over the past several years but seems more pr onounced over the past few months. Patient is generally alert at baseline. Of note, patient was previously on [facility]. Appears she was placed on hospice initially on 06/29/2024 secondary to decline in her overall health over the course of 6 months. The goal of hospice was to provide her with an additional layer of support in her care team as well as help her to reach her goals of care at home. Patient revoked her hospice status as of 08/17/2024 per her Epic records. Seems goals and parameters of hospice care were not well understood by the patient and her family; family was dissatisfied with her care and did not understand that she would not be receiving active treatment/labs while on hospice. PT/OT recommending SNF placement. No family was present at bedside this morning. Review of Systems Review of Systems: At least ten systems reviewed and negative, except as noted in the subjective section. Physical Exam Physical Exam: General: Elderly F, NAD, sitting up in bed, lethargic but awakens easily to verbal cues. A+Ox2 to direct questioning. HEENT: Normocephalic, atraumatic. Conjunctivae normal. External ear and nose normal, oropharynx normal. Respiratory: Normal respiratory effort, scant wheezing in b/l upper lungs that clears w/ cough. No rhonchi/rales. Cardiovascular: Regular rate, rhythm, normal peripheral pulses, no BLE edema. Vessels: No JVD. Abdomen/GI: Normal bowel sounds, soft, nondistended, nontender to palpation in all quadrants. Neurologic: No overt focal deficits, able to follow simple commands without much issue. Results & Data Results & Data Vital Signs (Past 12 Hours) Vital Signs Temp Pulse Resp BP Pulse Ox O2 Del Method 08/21/24 19:30 37.0 C 74 18 154/77 H 93 Room Air Laboratory Results Short CBC 08/22/24 Range/Units 06:53 WBC 6.62 (4.8-10.8) K/ul Hgb 10.1 L (12.0-16.0) g/dl Hct 32.0 L (37.0-47.0) % Plt Count 109 L (130-400) K/uL BMP 08/22/24 06:53 Sodium 141 Potassium 3.9 Chloride 108 H Carbon Dioxide 25 BUN 19 Creatinine 0.74 Glucose 85 Calcium 8.5 L (2) Left lower lobe pneumonia Pneumonia type: due to unspecified organism Qualified Code(s): J18.9 - Pneumonia, unspecified organism (4) Dysphagia Dysphagia type: unspecified Qualified Code(s): R13.10 - Dysphagia, unspecified
[2024-08-22 07:22] LABS: Hemoglobin 10.1 g/dl (12.0-16.0); Mean Corpuscular Hemoglobin 29.2 pg (25.0-34.0); Mean Corpuscular Hgb Conc 31.6 g/dL (32.0-36.0); Mean Corpuscular Volume 92.5 fL (80.0-100.0); Mean Platelet Volume 12.8 fL (9.4-12.4); Platelet Count 109 K/uL (130-400); RDW Coefficient of Variation 15.1 % (11.5-14.5); RDW Standard Deviation 51.4 fL (36.4-46.3); Red Blood Count 3.46 M/uL (4.20-5.40); White Blood Count 6.62 K/ul (4.8-10.8)
[2024-08-22 07:43] LABS: INR 2.3 (0.9-1.1); Prothrombin Time 23.5 Seconds (9.0-12.0)
[2024-08-22 07:47] LABS: BUN Creatinine Ratio 25.7 (10-20); Calcium 8.5 mg/dl (8.6-10.3); Creatinine Clr Calc Pharmacy 50.3 ml/min; Potassium 3.9 mmol/L (3.5-5.1)
[2024-08-22] MEDS: ADVANCED PROBIOTIC 625 MG CAPSULE PO SCH (12:30)
--- NOTE | 2024-08-22 16:00 | Communication Note ---
Date of Service: August 22, 2024 Spoke with the patient's son/POA, Nacho, later this afternoon. He reports that his mother has been dealing with intermittent confusion for several years; however, over the last month, she has been experiencing intermittent visual hallucinations - which she has reportedly never had before. Patient has always had "crazy" dreams but never hallucinations per Nacho. Cannot get brain MRI 2/2 cardiac pacemaker. Patient certainly more lethargic today which Nacho believes may be due to her lack of sleep. He reports she only sleep "a few hours" every night on average; known poor sleep history. Nacho agreeable with trial of melatonin HS for now; want to avoid overly-sedating sleeping pills. Updated him on plans of care today. He mentions that the ultimate goal is to get her rehabilitated at a SNF prior to being transitioned back home, hopefully with [facility] at Home services (which patient had before being transitioned to hospice care back in June 2024; hospice revoked day prior to this admission). Of note, patient does have 24/7 caregiver support at home through outside services - Nacho unsure of exact companies although there are 2 different ones who provide services.
[2024-08-22 16:23] LABS: Base Excess VBG 2.4 mEq/L; HCO3 VBG 27 mmol/L; Oxygen Saturation VBG 84.9 %; PCO2 VBG 42 mmHg (38-50); PO2 VBG 55 mmHg; pH VBG 7.42 (7.36-7.41)
[2024-08-22] MEDS: MELATONIN 3 MG TAB PO SCH (22:06)
[2024-08-23 06:52] LABS: INR 2.9 (0.9-1.1); Prothrombin Time 28.2 Seconds (9.0-12.0)
--- NOTE | 2024-08-23 13:27 | Hospitalist Progress Note ---
Date of Service August 23, 2024 Assessment & Plan (1) Acute metabolic encephalopathy: (2) Left lower lobe pneumonia: (3) Rhinovirus infection: (4) Dysphagia: (5) Ambulatory dysfunction: Plan Zulma Villar is an 88y/o F with PMHx significant for afib on Coumadin, tachy- nikki syndrome s/p pacemaker placement, labile HTN, DMII, history of IPMN, HFpEF [EF=59%, 2020], atherosclerosis of aorta, ambulatory dysfunction and other medical problems listed below who presented to the ED from home on 08/18/2024 with worsening weakness and was found to have a possible UTI, LLL PNA and entero-/rhinovirus. Acute Metabolic Encephalopathy - IMPROVING: Likely ISO acute infection. CT head w/o any acute intracranial abnormalities. Blood cultures NGTD. H/O intermittent confusion/bad dreams x several years; new intermittent hallucinations x 1 month now. Checked vit D, via B12 and TSH - reassuring. Still drowsy but easily oriented; more engaged in conversation today. Continue w/ delirium prevention measures including raising blinds during the day/closing at night, frequent re-orientation. Delirium 2/2 infection vs. superimposed on suspected underlying dementia; Cerebral atrophy noted on previous o/p imaging reviewed in Epic records - can contribute to memory loss, coordination issues. Delirium could be 2/2 poor sleep hygiene per discussion w/ the patient's son/Ncaho DOMÍNGUEZ; patient w/ frequent bad dreams that awake her. Trial of melatonin ordered per Nacho's request; would like to avoid overly- sedating sleeping meds in order to prevent any worsening delirium. Possible UTI - Suspect Asymptomatic Bacteriuria: UA on admission w/ 4+ bacteria. Was on empiric IV Rocephin for UTI concerns ISO acute CAP as outlined below. Urine culture w/ <50k CFU/mL Gardnerella vaginalis, no sensitivities to follow. No indication to treat; Rocephin completed for PNA tx as per below. LLL PNA - Suspect Possible Aspiration Component Entero-/Rhinovirus Positive on Respiratory BioFire Panel: CXR on presentation --> 2.5cm LLL retrocardiac opacity c/f PNA vs atelectasis. Suspect possible aspiration component as patient has been experiencing worsening dysphagia as mentioned below. Positive for entero-/rhinovirus on BioFire respiratory panel. Procalcitonin WNL. Covering with IV Rocephin + po doxycycline [EOT today, 08/23]. Continue probiotic. Continue pulmonary toileting. Per radiology --> recommend PA and lateral chest radiographs in 1 month to ensure resolution and exclude the possibility of a pulmonary nodule. Chronic Dysphagia: Mentioned by patient, family - has been ongoing x several years, however seems worse in the past few weeks prior to admission. GI consulted. Patient unable to have barium swallow due to inability to stand unassisted. GI was going to attempt EGD, however patient's son/POA (Nacho) and decided against EGD on 08/21. INR was not in appropriate range either way on 08/21. Speech eval --> Easy to chew diet with thin liquids; recommended barium swallow to address esophageal function but patient unable to tolerate this procedure as per above. Ambulatory Dysfunction: Ambulates with walker at baseline but has been profoundly weak as of recently. Patient with poor PT/OT tolerance. PT/OT recommending SNF placement; referrals placed to [facility] - [facility] and [facility]. Continue fall precautions. Afib on Coumadin: Continue Toprol; INR in range - continue Coumadin at 2mg daily for now. No signs/sx of bleeding. Patient follows / [facility]. Previous Coumadin dosing prior to admission --> 4mg every Mon/Fri; 2mg all other days. Daily INR. Chronic HFpEF: TTE 05/2020 --> LVEF = 59%, biatrial dilatation, moderately elevated RV systolic pressure. Daily weights, strict I&Os. No acute decompensation, remains euvolemic on exam. Appears patient was on PRN Lasix; no indication for diuresis at this time. Low sodium diet. DM Type II: Hgb A1c 5.6% in 04/2024. Diet-controlled. Monitor BSG; no indication for SSI coverage at this time given age. Goals of Care - Formerly on Hospice, Now Revoked: Patient was previously on [facility]; appears she was placed on hospice initially on 06/29/2024 secondary to decline in her overall health over the course of 6 months. The goal of hospice was to provide her with an additional layer of support in her care team as well as help her to reach her goals of care at home. Patient revoked her hospice status as of 08/17/2024 per her Epic records . Seems goals and parameters of hospice care were not well understood by the patient and her family; family was dissatisfied with her care and did not understand that she would not be receiving active treatment/labs while on hospice. Patient desires treatment with ABX and IVF. Would not want to pursue a feeding tube should that ever be recommended. Spoke with the patient's son/POA, Nacho, yesterday afternoon over the phone [ ]. He mentions that the ultimate goal is to get her rehabilitated at a SNF prior to being transitioned back home, hopefully with [facility] at Home services (which patient had before being transitioned to hospice care back in June 2024). Of note, patient does have 25/02 caregiver support at home through outside services - Nacho unsure of exact companies although there are 2 different ones who provide services. Once again confirmed with Nacho that she desires to be a FULL CODE. Will call Nacho later this afternoon again as he is requesting daily updates. DVT Prophylaxis: Coumadin resumed, continue w/ daily INR monitoring. Code Status: FULL CODE - As per above. PCP: Amor Pate MD Disposition: Currently admitted in Med/Surg; Medically stable for discharge once SNF placement is available. Patient seen in collaboration with Dr. Ray. Please see addendum. I spent a total of 35 minutes coordinating, documenting, and providing care for this patient excluding time spent in the performance of separately billed services. This included personally reviewing all current laboratories and imaging studies, medical reconciliation, outpatient chart review and discussion with specialists. This chart was completed in part utilizing Speech Voice Recognition Software. Grammatical errors, random word insertions, pronoun errors, and incomplete sentences are an occasional consequence of this system due to software limitations, ambient noise, and hardware issues. Any formal questions or concerns about the content, text, or information contained within the body of this dictation should be directly addressed to the provider for clarification. Admission and Anticipated Discharge Date Admission Date: August 18, 2024 Subjective Patient seen and examined at bedside in room E315-1 this morning. She is still quite drowsy/tired but easily arousable. More engaged in conversation today with minimal periods of forgetfulness. She had already ate breakfast by the time I saw her. Her , Cody, brought her some candy the other day which she enjoyed snacking on. She does mention she usually has bad dreams throughout the night, but she believes she slept better last evening when compared to the past few days. She denies any recent hallucinations. Spoke with the patient's son/SANG, Nacho, yesterday afternoon over the phone. He reports that his mother has been dealing with intermittent confusion for several years; however, over the last month, she has been experiencing intermittent visual hallucinations - which she has reportedly never had before. Patient has always had "crazy" dreams but never hallucinations per Nacho. He reports she only sleeps "a few hours" every night on average; known poor sleep history. Nacho was agreeable with a trial of melatonin; he requested to avoid overly- sedating sleeping pills. He mentions that the ultimate goal is to get her rehabilitated at a SNF prior to being transitioned back home, hopefully with [facility] at Home services (which patient had before being transitioned to hospice care back in June 2024; hospice revoked day prior to this admission). Of note, patient does have 24/ caregiver support at home through outside services - Nacho unsure of exact HH companies although there are 2 different ones who provide services. Review of Systems Review of Systems: At least ten systems reviewed and negative, except as noted in the subjective section. Physical Exam Physical Exam: General: Elderly F, sitting up in bed, drowsy but awakens easily to verbal cues. More A&O oriented to questing today, more engaged. Respiratory: Normal respiratory effort, scant wheezing in b/l upper lungs that clears w/ cough. No rhonchi/rales. NAD. Cardiovascular: Regular rate, rhythm, normal peripheral pulses, no BLE edema. Vessels: No JVD. Abdomen/GI: Normal bowel sounds, soft, nondistended, nontender to palpation in all quadrants. Neurologic: No overt focal deficits, able to follow simple commands without much issue. Results & Data Results & Data Vital Signs (Past 12 Hours) Vital Signs Temp Pulse Resp BP Pulse Ox O2 Del Method 08/23/24 07:20 Room Air 08/23/24 07:07 37.1 C 62 14 145/78 H 93 Room Air (2) Left lower lobe pneumonia Pneumonia type: due to unspecified organism Qualified Code(s): J18.9 - Pneumonia, unspecified organism (4) Dysphagia Dysphagia type: unspecified Qualified Code(s): R13.10 - Dysphagia, unspecified
[2024-08-24 06:40] LABS: INR 2.5 (0.9-1.1); Prothrombin Time 25.1 Seconds (9.0-12.0)
--- NOTE | 2024-08-24 09:21 | Hospitalist Progress Note ---
Date of Service August 24, 2024 Assessment & Plan (1) Acute metabolic encephalopathy: (2) Decreased urine output: (3) Mild dehydration: (4) Left lower lobe pneumonia: (5) Rhinovirus infection: (6) Dysphagia: (7) Ambulatory dysfunction: Plan Zulma Villar is an 88y/o F with PMHx significant for afib on Coumadin, tachy- nikki syndrome s/p pacemaker placement, labile HTN, DMII, history of IPMN, HFpEF [EF=59%, 2020], atherosclerosis of aorta, ambulatory dysfunction and other medical problems listed below who presented to the ED from home on 08/18/2024 with worsening weakness and was found to have a possible UTI, LLL PNA and entero-/rhinovirus. Acute Metabolic Encephalopathy - IMPROVING: Likely ISO acute infection. CT head w/o any acute intracranial abnormalities. Blood cultures negative. H/O intermittent confusion/bad dreams x several years; new intermittent hallucinations x 1 month now. Checked vit D, via B12 and TSH - reassuring. Still drowsy but easily oriented; more engaged in conversation. No further hallucinations since admission; Continue w/ delirium prevention measures including raising blinds during the day/closing at night, frequent re-orientation. Delirium 2/2 infection vs. superimposed on suspected underlying dementia; Cerebral atrophy noted on previous o/p imaging reviewed in Epic records - can contribute to memory loss, coordination issues. Delirium could be 2/2 poor sleep hygiene per discussion w/ the patient's son/Nacho DOMÍNGUEZ; patient w/ frequent bad dreams that awake her. Trial of melatonin ordered per Nacho's request; would like to avoid overly- sedating sleeping meds in order to prevent any worsening delirium. Decreased Urine Output, Suspect Mild Dehydration: Decreased urine output recorded overnight; 600mL output yesterday morning -> 100mL output this morning. Bladder scan unremarkable. BMP w/ elevated BUN. Urine dark in coloration; holding spironolactone/PRN Lasix for now. Suspect dehydration 2/2 decreased po fluid intake ISO drowsiness/increased sleeping habits. 1L NSS ordered. Bladder scan QS. Repeat BMP tomorrow. Encourage po fluid intake. Possible UTI - Suspect Asymptomatic Bacteriuria: UA on admission w/ 4+ bacteria. Was on empiric IV Rocephin for UTI concerns ISO acute CAP as outlined below. Urine culture w/ <50k CFU/mL Gardnerella vaginalis, no sensitivities to follow. No indication to treat; Rocephin completed for PNA tx as per below. LLL PNA - Suspect Possible Aspiration Component Entero-/Rhinovirus Positive on Respiratory BioFire Panel: CXR on presentation --> 2.5cm LLL retrocardiac opacity c/f PNA vs atelectasis. Suspect possible aspiration component as patient has been experiencing worsening dysphagia as mentioned below. Positive for entero-/rhinovirus on BioFire respiratory panel. Procalcitonin WNL. Completed tx with IV Rocephin + po doxycycline x 5 days [EOT was 08/23]. Can continue probiotic, pulmonary hygiene/toileting. Per radiology --> recommend PA and lateral chest radiographs in 1 month to ensure resolution and exclude the possibility of a pulmonary nodule. Chronic Dysphagia: Mentioned by patient, family - has been ongoing x several years, however seems worse in the past few weeks prior to admission. GI consulted. Patient unable to have barium swallow due to inability to stand unassisted. GI was going to attempt EGD, however patient's son/POA (Nacho) and decided against EGD on 08/21. Speech eval --> Easy to chew diet with thin liquids; recommended barium swallow to address esophageal function but patient unable to tolerate this procedure as per above. Ambulatory Dysfunction: Ambulates with walker at baseline but has been profoundly weak as of recently. Patient with poor PT/OT tolerance. PT/OT recommending SNF placement; referrals placed to [facility] and [facility]. Continue fall precautions. Afib on Coumadin: Continue Toprol; INR in range - continue Coumadin at 2mg daily for now. No signs/sx of bleeding. Patient follows / [facility]. Previous Coumadin dosing prior to admission --> 4mg every Mon/Fri; 2mg all other days. Daily INR. Chronic HFpEF: TTE 05/2020 --> LVEF = 59%, biatrial dilatation, moderately elevated RV systolic pressure. Daily weights, strict I&Os. Low sodium diet. No acute decompensation. PRN Lasix has been on hold. Holding spironolactone for now ISO dehydration; euvolemic on exam - no indication for diuresis at this time. DM Type II: Hgb A1c 5.6% in 04/2024. Diet-controlled. Monitor BSG; no indication for SSI coverage at this time given age. Goals of Care - Formerly on Hospice, Now Revoked: Patient was previously on [facility]; appears she was placed on hospice initially on 06/29/2024 secondary to decline in her overall health over the course of 6 months. The goal of hospice was to provide her with an additional layer of support in her care team as well as help her to reach her goals of care at home. Patient revoked her hospice status as of 08/17/2024 per her Epic records . Seems goals and parameters of hospice care were not well understood by the patient and her family; family was dissatisfied with her care and did not understand that she would not be receiving active treatment/labs while on hospice. Patient desires treatment with ABX and IVF. Would not want to pursue a feeding tube should that ever be recommended. Have been in daily contact with the patient's son/POA, Nacho [ ]. He mentions that the ultimate goal is to get her rehabilitated at a SNF prior to being transitioned back home, hopefully with [facility] at Home services (which patient had before being transitioned to hospice care back in June 2024). Of note, patient does have 25/02 caregiver support at home through outside services - Nacho unsure of exact companies although there are 2 different ones who provide services. Confirmed with Nacho that she desires to be a FULL CODE. Will continue to provide Nacho with daily updates, he is currently in [place] for work. DVT Prophylaxis: DENTAL INSURANCE BILLER Coumadin, continue w/ daily INR monitoring. Code Status: FULL CODE - As per above. PCP: Amor Pate MD Disposition: Currently admitted in Med/Surg; Receiving some gentle IVF as per above. Otherwise, she is medically stable for discharge once SNF placement is available. Patient seen in collaboration with Dr. Ray. Please see addendum. I spent a total of 45 minutes coordinating, documenting, and providing care for this patient excluding time spent in the performance of separately billed services. This included personally reviewing all current laboratories and imaging studies, medical reconciliation, outpatient chart review and discussion with specialists. This chart was completed in part utilizing Speech Voice Recognition Software. Grammatical errors, random word insertions, pronoun errors, and incomplete sentences are an occasional consequence of this system due to software limitations, ambient noise, and hardware issues. Any formal questions or concerns about the content, text, or information contained within the body of this dictation should be directly addressed to the provider for clarification. Admission and Anticipated Discharge Date Admission Date: August 18, 2024 Supervising Physician Co-Signing Physician Notes Patient seen and examine Agree with plans as detailed by Melody Reyes PA-C I spent a total of 20 minutes coordinating, documenting and providing care for this patient excluding time spent in performance of separately billed services Subjective Patient seen and examined at bedside this morning in room E315-1. She is still quite drowsy but easily awakens and was engaged in our conversation. Endorses that she slept somewhat better last evening compared to previous days; she has chronically bad dreams at baseline. Started trial of melatonin last night per request of her son/POA, Craig. BOWSER. Some decreased urine output overnight per nursing staff; on review of chart, urine output has decreased from 250mL yesterday evening to 100mL this morning. Urine output was 600mL yesterday morning. BMP, bladder scan ordered. Suspect dehydration component at play. Will hold spironolactone for now. Review of Systems Review of Systems: At least ten systems reviewed and negative, except as noted in the subjective section. Physical Exam Physical Exam: General: Elderly F, sitting up in bed, drowsy but awakens easily. A&O oriented to questing, engaged in conversation. Respiratory: Normal respiratory effort, diminished lung sounds throughout. No wheeze/rhonchi/rales. NAD. Cardiovascular: Regular rate, rhythm, normal peripheral pulses, no BLE edema. Vessels: No JVD. Abdomen/GI: Normal bowel sounds, soft, nondistended, nontender to palpation in all quadrants. Neurologic: No overt focal deficits, able to follow simple commands without much issue. Results & Data Results & Data Vital Signs (Past 12 Hours) Vital Signs Temp Pulse Resp BP Pulse Ox O2 Del Method 08/24/24 09:09 Room Air 08/24/24 07:06 37.4 C 60 16 133/74 94 Room Air 08/24/24 06:02 61 114/69 08/23/24 21:34 37.5 C 60 16 94/57 L 92 Room Air Laboratory Results [facility] 08/24/24 05:42 Sodium 139 Potassium 4.3 Chloride 109 H Carbon Dioxide 26 BUN 27 H Creatinine 1.02 Glucose 94 Calcium 8.4 L (4) Left lower lobe pneumonia Pneumonia type: due to unspecified organism Qualified Code(s): J18.9 - Pneumonia, unspecified organism (6) Dysphagia Dysphagia type: unspecified Qualified Code(s): R13.10 - Dysphagia, unspecified
[2024-08-24 09:23] LABS: BUN Creatinine Ratio 26.5 (10-20); Calcium 8.4 mg/dl (8.6-10.3); Creatinine Clr Calc Pharmacy 36.9 ml/min; Potassium 4.3 mmol/L (3.5-5.1)
[2024-08-24] MEDS: SODIUM CHLORIDE 0.9% 1,000 ML IV SCH (10:24)
[2024-08-25 07:34] LABS: INR 1.8 (0.9-1.1)
[2024-08-25 08:00] LABS: BUN Creatinine Ratio 29.6 (10-20); Creatinine Clr Calc Pharmacy 53.5 ml/min; Potassium 4.3 mmol/L (3.5-5.1)
--- NOTE | 2024-08-25 14:14 | Hospitalist Progress Note ---
Date of Service August 25, 2024 Assessment & Plan (1) Acute metabolic encephalopathy: (2) Decreased urine output: (3) Mild dehydration: (4) Left lower lobe pneumonia: (5) Rhinovirus infection: (6) Dysphagia: (7) Ambulatory dysfunction: Plan Zulma Villar is an 88y/o F with PMHx significant for afib on Coumadin, tachy- nikki syndrome s/p pacemaker placement, labile HTN, DMII, history of IPMN, HFpEF [EF=59%, 2019], atherosclerosis of aorta, ambulatory dysfunction and other medical problems listed below who presented to the ED from home on 08/18/2024 with worsening weakness and was found to have a possible UTI, LLL PNA and entero-/rhinovirus. Acute Metabolic Encephalopathy - IMPROVING: Likely ISO acute infection. CT head w/o any acute intracranial abnormalities. Blood cultures negative. H/O intermittent confusion/bad dreams x several years; new intermittent hallucinations x 1 month now. Checked vit D, via B12 and TSH - reassuring. Less drowsy this morning and engaged in direct conversation. No further reported hallucinations since admission; Continue w/ delirium prevention measures including raising blinds during the day/closing at night, frequent re-orientation. Delirium 2/2 infection vs. superimposed on suspected underlying dementia; Cerebral atrophy noted on previous o/p imaging reviewed in Epic records - can contribute to memory loss, coordination issues. Delirium could be 2/2 poor sleep hygiene per discussion w/ the patient's son/POAsad, Nacho; patient w/ frequent bad dreams that awake her. Trial of melatonin ordered per Nacho's request; would like to avoid overly- sedating sleeping meds in order to prevent any worsening delirium. Decreased Urine Output, Suspect Mild Dehydration -IMPROVED: Decreased urine output noted on 08/24. Bladder scan unremarkable at that time. BMP noted to have elevated BUN on 08/24, urine dark in coloration - suspect dehydration 2/2 decreased po intake ISO suspected dementia. S/p 1L NSS on 08/24; BUN improved. Urine boot and shoe repairman in appearance today. Patient is more alert as well. Can resume spironolactone tomorrow. No PVR on repeat bladder scans. Will continue to monitor BMP. Improved po fluid intake this morning, continue to encourage/reinforce. Monitor I&Os. Possible UTI - Suspect Asymptomatic Bacteriuria: UA on admission w/ 4+ bacteria. Was on empiric IV Rocephin for UTI concerns ISO acute CAP as outlined below. Urine culture w/ <50k CFU/mL Gardnerella vaginalis, no sensitivities to follow. No indication to treat; Rocephin completed for PNA tx as per below. LLL PNA - Suspect Possible Aspiration Component Entero-/Rhinovirus Positive on Respiratory BioFire Panel: CXR on presentation --> 2.5cm LLL retrocardiac opacity c/f PNA vs atelectasis. Suspect possible aspiration component as patient has been experiencing worsening dysphagia as mentioned below. Positive for entero-/rhinovirus on BioFire respiratory panel. Procalcitonin WNL. Completed tx with IV Rocephin + po doxycycline x 5 days [EOT was 08/23]. Can continue probiotic, pulmonary hygiene/toileting. Per radiology --> recommend PA and lateral chest radiographs in 1 month to ensure resolution and exclude the possibility of a pulmonary nodule. Chronic Dysphagia: Mentioned by patient, family - has been ongoing x several years, however seems worse in the past few weeks prior to admission. GI consulted. Patient unable to have barium swallow due to inability to stand unassisted. GI was going to attempt EGD, however patient's son/POA (Nacho) and decided against EGD on 08/21. Speech eval --> Easy to chew diet with thin liquids; recommended barium swallow to address esophageal function but patient unable to tolerate this procedure as per above. Ambulatory Dysfunction: Ambulates with walker at baseline but has been profoundly weak as of recently. Patient with poor PT/OT tolerance. PT/OT recommending SNF placement. Continue fall precautions. Afib on Coumadin: Continue Toprol; INR subtherapeutic at 1.8 today; will increase dose of warfarin to 2.5mg for today. Recheck INR in AM. Patient follows w/ [facility]. Previous Coumadin dosing prior to admission --> 4mg every Mon/Fri; 2mg all other days. Chronic HFpEF: TTE 05/2020 --> LVEF = 59%, biatrial dilatation, moderately elevated RV systolic pressure. Daily weights, strict I&Os. Low sodium diet. No acute decompensation. PRN Lasix has been on hold. Can resume spironolactone tomorrow; euvolemic on exam - no indication for urgent diuresis at this time. Hypocalcemia: Noted on recent labs, will start on a calcium supplement and continue to monitor. DM Type II: Hgb A1c 5.6% in 04/2024. Diet-controlled. Monitor BSG; no indication for SSI coverage at this time given age. Goals of Care - Formerly on Hospice, Now Revoked: Patient was previously on [facility]; appears she was placed on hospice initially on 06/29/2024 secondary to decline in her overall health over the course of 6 months. The goal of hospice was to provide her with an additional layer of support in her care team as well as help her to reach her goals of care at home. Patient revoked her hospice status as of 08/17/2024 per her Epic records . Seems goals and parameters of hospice care were not well understood by the pat ient and her family; family was dissatisfied with her care and did not understand that she would not be receiving active treatment/labs while on hospice. Patient desires treatment with ABX and IVF. Would not want to pursue a feeding tube should that ever be recommended. Have been in daily contact with the patient's son/POA, Nacho [ ]. He mentions that the ultimate goal is to get her rehabilitated at a SNF prior to being transitioned back home, hopefully with [facility] at Home services (which patient had before being transitioned to hospice care back in June 2024). Of note, patient does have 24/7 caregiver support at home through outside services - Nacho unsure of exact companies although there are 2 different ones who provide services. Confirmed with Nacho that she desires to be a FULL CODE. Will continue to provide Nacho with daily updates, he is currently in [place] for work. 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 Code Status: FULL CODE - As per above. PCP: Amor Pate MD Disposition: Patient medically stable for discharge when placement becomes available. Patient seen in collaboration with Dr. Ray. Please see addendum. I spent a total of 40 minutes coordinating, documenting, and providing care for this patient excluding time spent in the performance of separately billed services and time spent by another provider/QHP. This included personally reviewing all current laboratories and imaging studies, medical reconciliation, outpatient chart review and discussion with specialists. This chart was completed in part utilizing Speech Voice Recognition Software. Grammatical errors, random word insertions, pronoun errors, and incomplete sentences are an occasional consequence of this system due to software limitations, ambient noise, and hardware issues. Any formal questions or concerns about the content, text, or information contained within the body of this dictation should be directly addressed to the provider for clarification. Admission and Anticipated Discharge Date Admission Date: August 18, 2024 Supervising Physician Co-Signing Physician Notes Patient seen and examined Agree with plans as detailed by Melody Reyes PA-C I spent a total of 15 minutes coordinating, documenting and providing care for this patient excluding time spent in performance of separately billed services Subjective Patient seen and examined at bedside this morning in room E315-1. More alert this morning; she was wide awake when I entered her room. She was eating her breakfast without much difficulty. Endorses that she slept fine last evening. She was fully engaged in our conversation with periods of forgetfulness. Has PureWick in place. NAEO. Urine output and BUN improved s/p IVF yesterday. Medically stable for discharge when placement is available. Review of Systems Review of Systems: At least ten systems reviewed and negative, except as noted in the subjective section. Physical Exam Physical Exam: General: Elderly F, sitting up in bed, eating breakfast, engaged in conversation. A&Ox2 to direct questioning. Respiratory: Normal respiratory effort, diminished lung sounds throughout. No wheeze/rhonchi/rales. NAD. Cardiovascular: Regular rate, rhythm, normal peripheral pulses, no BLE edema. Vessels: No JVD. Abdomen/GI: Normal bowel sounds, soft, nondistended, nontender to palpation in all quadrants. Neurologic: No overt focal deficits, able to follow simple commands without much issue. Results & Data Results & Data Vital Signs (Past 12 Hours) Vital Signs Temp Pulse Resp BP Pulse Ox O2 Del Method 08/25/24 13:52 37.0 C 81 16 134/74 94 Room Air 08/25/24 08:50 Room Air 08/25/24 08:08 37.0 C 62 16 182/93 H 96 Room Air 08/25/24 07:00 36.9 C 65 17 167/84 H 96 Room Air Laboratory Results [facility] 08/25/24 06:40 Sodium 138 Potassium 4.3 Chloride 109 H Carbon Dioxide 25 BUN 21 Creatinine 0.71 D Glucose 91 Calcium 8.0 L (4) Left lower lobe pneumonia Pneumonia type: due to unspecified organism Qualified Code(s): J18.9 - Pneumonia, unspecified organism (6) Dysphagia Dysphagia type: unspecified Qualified Code(s): R13.10 - Dysphagia, unspecified
[2024-08-25] MEDS: WARFARIN SOD 2.5 MG TAB PO SCH (18:11)
[2024-08-25] MEDS: CALCIUM 600MG + VIT D 400 IU TAB PO SCH (21:04)
--- NOTE | 2024-08-26 07:35 | Hospitalist Progress Note ---
Date of Service August 26, 2024 Assessment & Plan (1) Acute metabolic encephalopathy: (2) Decreased urine output: (3) Mild dehydration: (4) Left lower lobe pneumonia: (5) Rhinovirus infection: (6) Dysphagia: (7) Ambulatory dysfunction: Plan Zulma Villar is an 88y/o F with PMHx significant for afib on Coumadin, tachy- nikki syndrome s/p pacemaker placement, labile HTN, DMII, history of IPMN, HFpEF [EF=59%, 2019], atherosclerosis of aorta, ambulatory dysfunction and other medical problems listed below who presented to the ED from home on 08/18/2024 with worsening weakness and was found to have a possible UTI, LLL PNA and entero-/rhinovirus. Acute Metabolic Encephalopathy - IMPROVING: Delirium 2/2 infection vs. superimposed on suspected underlying dementiaCT head w/o any acute intracranial abnormalities. Blood cultures (-). H/O intermittent confusion/bad dreams x several years; new intermittent hallucinations x 1 month now. Vit D, TSH, B12 normal. May be more drowsy since yesterday; but answering yes/no questions and following simple commands. Continue w/ delirium measures/ including raising blinds during the day/closing at night, frequent re-orientation. Trial of melatonin ordered per Nacho's request; would like to avoid overly- sedating sleeping meds in order to prevent any worsening delirium. Receptive to Psych consult for behavioral disturbance related to dementia. Would benefit from MMSE to determine how advanced her dementia is. Decreased Urine Output, Suspect Mild Dehydration -IMPROVED: Decreased urine output noted on 08/24. Bladder scan unremarkable at that time. suspect dehydration 2/2 decreased po intake ISO suspected dementia. S/p 1L NSS on 08/24; BUN improved. Urine orthotics prosthetics technician in appearance today. Patient is more alert as well. Can resume spironolactone tomorrow. No PVR on repeat bladder scans. Continue to encourage/reinforce. Monitor I&Os. Possible UTI - Suspect Asymptomatic Bacteriuria: UA on admission w/ 4+ bacteria. Was on empiric IV Rocephin for UTI concerns ISO acute CAP as outlined below. Urine culture w/ <50k CFU/mL Gardnerella vaginalis, no sensitivities to follow. No indication to treat; Rocephin completed for PNA tx as per below. LLL PNA - Suspect Possible Aspiration Component Entero-/Rhinovirus Positive on Respiratory BioFire Panel: CXR on presentation --> 2.5cm LLL retrocardiac opacity c/f PNA vs atelectasis. Suspect possible aspiration component as patient has been experiencing worsening dysphagia as mentioned below. Positive for entero-/rhinovirus on BioFire respiratory panel. Procalcitonin WNL. Completed tx with IV Rocephin + po doxycycline x 5 days [EOT was 08/23]. Can continue probiotic, pulmonary hygiene/toileting. Per radiology --> recommend PA and lateral chest radiographs in 1 month to ensure resolution and exclude the possibility of a pulmonary nodule. Chronic Dysphagia: Mentioned by patient, family - has been ongoing x several years, however seems worse in the past few weeks prior to admission. GI consulted. Patient unable to have barium swallow due to inability to stand unassisted. GI was going to attempt EGD, however patient's son/POA (Nacho) and decided against EGD on 08/21. ST eval--> Easy to chew diet with thin liquids; recommended barium swallow to address esophageal function but patient unable to tolerate this procedure. Ambulatory Dysfunction: Ambulates with walker at baseline but has been profoundly weak as of recently. Patient with poor PT/OT tolerance. PT/OT recommending SNF placement. Continue fall precautions. Afib on Coumadin: Continue Toprol; INR subtherapeutic at 1.9 today; Recheck INR in AM. (Goal 2-3) [facility]. Previous Coumadin dosing prior to admission --> 4mg every Mon/Fri; 2mg all other days. Chronic HFpEF: TTE 05/2020 --> LVEF = 59%, biatrial dilatation, moderately elevated RV systolic pressure. Daily weights, strict I&Os. Low sodium diet. No acute decompensation. PRN Lasix has been on hold. Can resume spironolactone tomorrow 08/27; euvolemic on exam - no indication for urgent diuresis at this time. Hypocalcemia: Noted on recent labs, will start on a calcium supplement and continue to monitor. DM Type II: Hgb A1c 5.6% in 04/2024. Diet-controlled. Monitor BSG; no indication for SSI coverage at this time given age. Goals of Care - Formerly on Hospice, Now Revoked: Patient was previously on [facility]; appears she was placed on hospice initially on 06/29/2024 secondary to decline in her overall health over the course of 6 months. The goal of hospice was to provide her with an additional layer of support in her care team as well as help her to reach her goals of care at home. Patient revoked her hospice status as of 08/17/2024 per her Epic records . Seems goals and parameters of hospice care were not well understood by the patient and her family; family was dissatisfied with her care and did not understand that she would not be receiving active treatment/labs while on hospice. Patient desires treatment with ABX and IVF. Would not want to pursue a feeding tube should that ever be recommended. Have been in daily contact with the patient's son/POA, Nacho [ ]. He mentions that the ultimate goal is to get her rehabilitated at a SNF prior to being transitioned back home, hopefully with [facility] at Home services. Of note, patient does have 25/02 caregiver support at home through outside services - Nacho unsure of exact companies although there are 2 different ones who provide services. Confirmed with Nacho that she desires to be a FULL CODE. Will continue to provide Nacho with daily updates, he is currently in [place] for work. When I spoke to him on 08/26, [place] at the airport. He is receptive of getting geripsych involved for symptom management of behavioral distrubance related to dementia. 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 Code Status: FULL CODE - As per above. PCP: Amor Pate MD Disposition: Patient medically stable for discharge when placement becomes available. I spent a total of 53 minutes coordinating, documenting, and providing care for this patient excluding time spent in the performance of separately billed services and time spent by another provider/QHP. This included personally revi sutton all current laboratories and imaging studies, medical reconciliation, outpatient chart review and discussion with specialists. This chart was completed in part utilizing Speech Voice Recognition Software. Grammatical errors, random word insertions, pronoun errors, and incomplete sentences are an occasional consequence of this system due to software limitations, ambient noise, and hardware issues. Any formal questions or concerns about the content, text, or information contained within the body of this dictation should be directly addressed to the provider for clarification. Admission and Anticipated Discharge Date Admission Date: August 18, 2024 Supervising Physician Co-Signing Physician Notes delayed entry date of service noted above Attending Addendum: Case reviewed with the advanced practitioner. I have personally performed a history and physical examination on the patient. I have reviewed the advanced practitioner's documentation on the date of service referenced in note, and I agree with, and take responsibility for the plan of care. please refer to her notes for full details patient seen and examined, records reviewed by myself as well diagnoses and plan of care as per advanced practitioner's notes Cristiano Ortega MD Subjective Patient seen and examined at bedside this morning in room E315-1. Pt sleepy when I was in the room but responded to verbal stimuli. She was AAOx2 and able to answer simple yes/no questions. Continues to have sundowning/visual hallucinations. Per nursing, AM is her most calm/oriented time of day. Able to respond to ROS; denies chest pain, SOB. Able to say her son's name is "Nacho" I spoke with Nacho on the phone to provide an update. He is receptive to having Psychiatry weigh in regarding sundowning management. Seems to be tolerating the Melatonin well. Medically stable for discharge when placement is available; CM working on [facility] SNF placement. Review of Systems Review of Systems: Neuro: (-) Falls, trauma, slurred speech HEENT: (-) WILSON, dizziness, dysphagia, visual or auditory changes CV: (-) CP, palpitations, swelling Resp: (-) SOB GI: (-) appetite changes, N/V/D, bowel changes : (-) urinary changes Skin: (-) rashes Psych: Unable to assess Physical Exam Physical Exam: Neuro: AAOx2, PERRLA, no aphagia, memory changes, CNII-XII grossly intact HEENT: head normocephalic, moist mucus membranes CV: S1/S2, (-) M/G/R, (-) edema, cap refill < 3 seconds Resp: Lungs CTA in all hines. On RA GI: Abdomen S/NT/ND, Ax4 bowel sounds, (-) CVA tenderness Musculoskeletal: 5/5 B/L UE strength, 5/5 B/L LE strength. Has bilateral hand and feet contractures. Skin: (-) rashes , (-) erythema. Psych: euthymic mood Results & Data Results & Data Vital Signs (Past 12 Hours) Vital Signs Temp Pulse Resp BP Pulse Ox O2 Del Method 08/25/24 21:11 37.1 C 60 16 137/76 95 Room Air Laboratory Results BMP 08/26/24 06:34 Sodium 139 Potassium 4.0 Chloride 109 H Carbon Dioxide 26 BUN 18 Creatinine 0.63 Glucose 86 Calcium 8.3 L (4) Left lower lobe pneumonia Pneumonia type: due to unspecified organism Qualified Code(s): J18.9 - Pneumonia, unspecified organism (6) Dysphagia Dysphagia type: unspecified Qualified Code(s): R13.10 - Dysphagia, unspecified
[2024-08-26 07:40] LABS: BUN Creatinine Ratio 28.6 (10-20); Calcium 8.3 mg/dl (8.6-10.3); Creatinine Clr Calc Pharmacy 60.3 ml/min
[2024-08-26 07:58] LABS: INR 1.9 (0.9-1.1); Prothrombin Time 19.1 Seconds (9.0-12.0)
[2024-08-27 06:31] LABS: Hematocrit (blood only) 31.5 % (37.0-47.0); Mean Corpuscular Hemoglobin 29.7 pg (25.0-34.0); Mean Corpuscular Hgb Conc 31.7 g/dL (32.0-36.0); Mean Corpuscular Volume 93.5 fL (80.0-100.0); Mean Platelet Volume 12.7 fL (9.4-12.4); Platelet Count 122 K/uL (130-400); RDW Coefficient of Variation 14.6 % (11.5-14.5); RDW Standard Deviation 50.4 fL (36.4-46.3); Red Blood Count 3.37 M/uL (4.20-5.40); White Blood Count 4.83 K/ul (4.8-10.8)
[2024-08-27 06:47] LABS: Calcium 9.4 mg/dl (8.6-10.3); Creatinine Clr Calc Pharmacy 51.3 ml/min; Potassium 4.7 mmol/L (3.5-5.1)
[2024-08-27 06:55] LABS: INR 1.8 (0.9-1.1)
--- NOTE | 2024-08-27 07:20 | Hospitalist Progress Note ---
Date of Service August 27, 2024 Assessment & Plan (1) Acute metabolic encephalopathy: (2) Decreased urine output: (3) Mild dehydration: (4) Left lower lobe pneumonia: (5) Rhinovirus infection: (6) Dysphagia: (7) Ambulatory dysfunction: Plan Zulma Villar is an 88y/o F with PMHx significant for afib on Coumadin, tachy- nikki syndrome s/p pacemaker placement, labile HTN, DMII, history of IPMN, HFpEF [EF=59%, 2019], atherosclerosis of aorta, ambulatory dysfunction and other medical problems listed below who presented to the ED from home on 08/18/2024 with worsening weakness and was found to have a possible UTI, LLL PNA and entero-/rhinovirus. Acute Metabolic Encephalopathy - IMPROVING: Delirium 2/2 infection vs. superimposed on suspected underlying dementiaCT head w/o any acute intracranial abnormalities. Blood cultures (-). H/O intermittent confusion/bad dreams x several years; new intermittent hallucinations x 1 month now. Vit D, TSH, B12 normal. May be more drowsy since yesterday; but answering yes/no questions and following simple commands. Continue w/ delirium measures/ including raising blinds during the day/closing at night, frequent re-orientation. Trial of melatonin ordered per Nacho's request; would like to avoid overly- sedating sleeping meds in order to prevent any worsening delirium. Receptive to Psych consult for behavioral disturbance related to dementia. Psych saw patient today; recommended using Seroquel if behavioral disturbance worsens or olanzapine for behavioral emergency; updated patients son, Nacho over the phone on 08/27. Possibly Requip could be contributing to ams. After review of medication, this was started in November 2023; per review of EMR Link; will hold for now and see if any difference in her mental status. Would benefit from MMSE to determine how advanced her dementia is. Decreased Urine Output, Suspect Mild Dehydration -IMPROVED: Decreased urine output noted on 08/24. Bladder scan unremarkable at that time. suspect dehydration 2/2 decreased po intake ISO suspected dementia. S/p 1L NSS on 08/24; BUN improved. Urine blanket inspector in appearance today. Patient is more alert as well. Can resume spironolactone tomorrow. No PVR on repeat bladder scans. Continue to encourage/reinforce. Monitor I&Os. Possible UTI - Suspect Asymptomatic Bacteriuria: UA on admission w/ 4+ bacteria. Was on empiric IV Rocephin for UTI concerns ISO acute CAP as outlined below. Urine culture w/ <50k CFU/mL Gardnerella vaginalis, no sensitivities to follow. No indication to treat; Rocephin completed for PNA tx as per below. LLL PNA - Suspect Possible Aspiration Component Entero-/Rhinovirus Positive on Respiratory BioFire Panel: CXR on presentation --> 2.5cm LLL retrocardiac opacity c/f PNA vs atelectasis. Suspect possible aspiration component as patient has been experiencing worsening dysphagia as mentioned below. Positive for entero-/rhinovirus on BioFire respiratory panel. Procalcitonin WNL. Completed tx with IV Rocephin + po doxycycline x 5 days [EOT was 08/23]. Can continue probiotic, pulmonary hygiene/toileting. Per radiology --> recommend PA and lateral chest radiographs in 1 month to en sure resolution and exclude the possibility of a pulmonary nodule. Chronic Dysphagia: Mentioned by patient, family - has been ongoing x several years, however seems worse in the past few weeks prior to admission. GI consulted. Patient unable to have barium swallow due to inability to stand unassisted. GI was going to attempt EGD, however patient's son/POA (Nacho) and decided against EGD on 08/21. ST eval--> Easy to chew diet with thin liquids; recommended barium swallow to address esophageal function but patient unable to tolerate this procedure. Ambulatory Dysfunction: Ambulates with walker at baseline but has been profoundly weak as of recently. Patient with poor PT/OT tolerance. PT/OT recommending SNF placement. Continue fall precautions. Afib on Coumadin: Continue Toprol; INR subtherapeutic at 1.9 today; Recheck INR in AM. (Goal 2-3) [facility] Previous Coumadin dosing prior to admission --> 4mg every Mon/Fri; 2mg all other days. Chronic HFpEF: TTE 05/2020 --> LVEF = 59%, biatrial dilatation, moderately elevated RV systolic pressure. Daily weights, strict I&Os. Low sodium diet. No acute decompensation. PRN Lasix has been on hold. Can resume spironolactone tomorrow 08/27; euvolemic on exam - no indication for urgent diuresis at this time. Hypocalcemia: Noted on recent labs, will start on a calcium supplement and continue to monitor. DM Type II: Hgb A1c 5.6% in 04/2024. Diet-controlled. Monitor BSG; no indication for SSI coverage at this time given age. Goals of Care - Formerly on Hospice, Now Revoked: Patient was previously on [facility]; appears she was placed on hospice initially on 06/29/2024 secondary to decline in her overall health over the course of 6 months. The goal of hospice was to provide her with an additional layer of support in her care team as well as help her to reach her goals of care at home. Patient revoked her hospice status as of 08/17/2024 per her Epic records . Seems goals and parameters of hospice care were not well understood by the patient and her family; family was dissatisfied with her care and did not understand that she would not be receiving active treatment/labs while on hospice. Patient desires treatment with ABX and IVF. Would not want to pursue a feeding tube should that ever be recommended. Have been in daily contact with the patient's son/POA, Nacho [ ]. He mentions that the ultimate goal is to get her rehabilitated at a SNF prior to being transitioned back home, hopefully with [facility] at Home services. Of note, patient does have 24/ caregiver support at home through outside services - Nacho unsure of exact companies although there are 2 different ones who provide services. Confirmed with Nacho that she desires to be a FULL CODE. Will continue to provide Nacho with daily updates, he is currently in [place] for work. When I spoke to him on 08/26, he was at the airport. He is receptive of getting geripsych involved for symptom management of behavioral distrubance related to dementia. See Psych note from 08/27 DVT Prophylaxis: RECEIVING INSPECTOR Coumadin, continue w/ daily INR monitoring. Code Status: FULL CODE - As per above. PCP: Amor Pate MD Disposition: Patient medically stable for discharge when placement becomes available. I spent a total of 51 minutes coordinating, documenting, and providing care for this patient excluding time spent in the performance of separately billed services and time spent by another provider/QHP. This included personally reviewing all current laboratories and imaging studies, medical reconciliation, outpatient chart review and discussion with specialists. This chart was completed in part utilizing Speech Voice Recognition Software. Grammatical errors, random word insertions, pronoun errors, and incomplete sentences are an occasional consequence of this system due to software limitations, ambient noise, and hardware issues. Any formal questions or concerns about the content, text, or information contained within the body of this dictation should be directly addressed to the provider for clarification. Admission and Anticipated Discharge Date Admission Date: August 18, 2024 Supervising Physician Co-Signing Physician Notes Attending Addendum: Case reviewed with the advanced practitioner. I have personally performed a history and physical examination on the patient. I have reviewed the advanced practitioner's documentation on the date of service referenced in note, and I agree with, and take responsibility for the plan of care. please refer to her notes for full details patient seen and examined, records reviewed by myself as well diagnoses and plan of care as per advanced practitioner's notes Cristiano Ortega MD Review of Systems Review of Systems: Neuro: (-) Falls, trauma, slurred speech HEENT: (-) WILSON, dizziness, dysphagia, visual or auditory changes CV: (-) CP, palpitations, swelling Resp: (-) SOB GI: (-) appetite changes, N/V/D, bowel changes : (-) urinary changes Skin: (-) rashes Psych: Unable to assess Physical Exam Physical Exam: Neuro: AAOx2, PERRLA, no aphagia, memory changes, CNII-XII grossly intact HEENT: head normocephalic, moist mucus membranes CV: S1/S2, (-) M/G/R, (-) edema, cap refill < 3 seconds Resp: Lungs CTA in all hines. On RA GI: Abdomen S/NT/ND, Ax4 bowel sounds, (-) CVA tenderness Musculoskeletal: 5/5 B/L UE strength, 5/5 B/L LE strength. Has bilateral hand and feet contractures. Skin: (-) rashes , (-) erythema. Psych: euthymic mood Results & Data Results & Data Vital Signs (Past 12 Hours) Vital Signs Temp Pulse Resp BP Pulse Ox O2 Del Method 08/27/24 07:03 36.4 C L 60 16 132/78 95 Room Air 08/26/24 20:30 36.4 C L 60 16 107/69 95 Room Air Laboratory Results Short CBC 08/27/24 Range/Units 05:43 WBC 4.83 (4.8-10.8) K/ul Hgb 10.0 L (12.0-16.0) g/dl Hct 31.5 L (37.0-47.0) % Plt Count 122 L (130-400) K/uL BMP 08/27/24 05:43 Sodium 138 Potassium 4.7 Chloride 106 Carbon Dioxide 28 BUN 20 Creatinine 0.74 Glucose 95 Calcium 9.4 (4) Left lower lobe pneumonia Pneumonia type: due to unspecified organism Qualified Code(s): J18.9 - Pneumonia, unspecified organism (6) Dysphagia Dysphagia type: unspecified Qualified Code(s): R13.10 - Dysphagia, unspe cified
--- NOTE | 2024-08-27 11:58 | Psychiatric Consultation ---
Date of Consultation August 27, 2024 Impression / Recommendations Impression Diagnostically consistent with encephalopathy/delirium possibly superimposed on cognitive impairment with behavioral disturbances at times though behaviors have been in good control recently. Seems like she could be having fluctuations between hypo and hyperactive delirium. Unfortunately there are no known medications to cure or shorten the duration of delirium; rather antipsychotics are used at times to help with sleep/appetite/psychomotor agitation and hallucinations if these symptoms are causing significant distress and/or interfering with acute safety. Duration of delirium varies broadly with persistent delirium (defined as lasting for weeks or months) occurring frequently with [id number]% of patients exhibiting some symptoms of delirium at 6 months after symptom onset, see:Alicia Rangel., Lo Messina., Dana Rodriguez.et al.Delirium.Kaylee Rev Dis Primers6, 90 (2020). [email or web address]://[email or web address]/[email or web address]. Goal in dementia is to avoid medication management of behaviors if possible by maximizing non-pharmacologic strategies for behavioral management. However, given worsening agitation/aggression could consider starting antipsychotic as risk/benefit profile now favors treatment. Note all antipsychotic medications carry black box warning for increased risk of all-cause mortality in setting of dementia. Overall, I spent a total of 45 minutes with this case including review of chart records, review of labwork, review of EKG QTc, direct evaluation of the patient at bedside, counseling the patient, discussion of the patient with the hospitalist provider, discussion with the psychiatric liason during clinical rounds and documentation in the electronic health record. (1) Acute metabolic encephalopathy: Plan -Consider seroquel 12.5 mg qhs prn for behavioral disturbance/sundowning if symptoms do not improve or worsen and can titrate up to 25mg HS and further as needed to max of 100mg total daily for behavioral management as needed; would check EKG QTc routinely. -Continue with melatonin 3mg qhs and sertraline. -Ropinirole can make hallucinations worse, consider if iron supplementation and alternative treatments for restless leg syndrome could be considered -Continue medical workup and treatment for any underlying causes contributing to potential delirium, avoid or limit use of deliriogenic medications (benzodiazepines, opioids, anticholinergics) -Continue with delirium prevention measures: raising blinds during the day, closing at night, frequent re-orientation, contact with family/friends, explaining procedures/nursing care measures prior to physical contact, correct any hearing and visual impairments -For behavioral emergency: olanzapine 2.5 mg IM x 1 (DO NOT exceed 10mg per 24 hours, check EKG if IM dose required, NEVER co-administer with IM or IV benzodiazepines). Psych History Identifying Data 88 yo woman with a history of atrial fibrillation on coumadin, tachybradycardia syndrome s/p pacemaker, labile HTN, type 2 diabetes, history of IPMN, HFpEF (EF:59% 2020), atherosclerosis of aorta, ambulatory dysfunction and other medical problems listed below who presents from home with worsening weakness admitted for encephalopathy and pneumonia. Psychiatry consulted for sundowning/VH and medication recommendations. Chief Complaint "I feel better than yesterday, I'm more alert". History of Present Illness Zulma was admitted for increased weaknesses and she and her family decided to revoke her hospice status as she desired treatment for UTI and pneumonia. She has been intermittently confused especially in the evenings and reportedly with periods of visual hallucinations. Today she is alert and only partially oriented, reports her mood is good and she feels more alert though still seems a little tired. Reports she can have bad dreams but denies visual hallucinations or confusion. Feels she sleeps ok when she doesn't have bad dreams. She states the plan is for her to go to physical rehab so "I can get stronger" which she is motivated to do. Allergies Allergy/AdvReac Type Severity Reaction Status Date / Time No Known Allergies Allergy Verified 08/18/24 18:24 Home Medications Medication Instructions Recorded Confirmed Type metoprolol succinate 25 mg 12.5 mg PO QAM 02/03/19 08/18/24 History tablet,extended release 24 hr omeprazole 20 mg tablet,delayed 20 mg PO QAM 02/03/19 08/18/24 History release spironolactone 25 mg tablet 25 mg PO 3XWK 02/03/19 08/18/24 History sertraline 50 mg tablet 50 mg PO QAM 12/26/23 08/18/24 History acetaminophen 325 mg tablet 650 mg PO Q6H PRN Pain/Fever 08/18/24 08/18/24 History furosemide 20 mg tablet 20 mg PO DAILY PRN Edema 08/18/24 08/18/24 History ropinirole 0.25 mg tablet 0.25 mg PO TID 08/18/24 08/19/24 History sennosides 8.6 mg tablet 8.6 mg PO DAILY PRN Constipation 08/18/24 08/18/24 History warfarin 2 mg tablet 2 mg PO TUWETHSA@1600 08/18/24 08/18/24 History warfarin 4 mg tablet 4 mg PO MOFR@1600 08/18/24 08/18/24 History calcium 600 mg (as 1 cap PO DAILY 08/19/24 08/19/24 History carbonate)-vitamin D3 10 mcg (400 unit) capsule cholecalciferol (vitamin D3) 25 25 mcg PO DAILY 08/19/24 08/19/24 History mcg (1,000 unit) capsule (Vitamin D3) cyanocobalamin (vitamin B-12) 500 500 mcg PO 2XWK 08/19/24 08/19/24 History mcg tablet folic acid 800 mcg tablet 0.8 mg PO DAILY 08/19/24 08/19/24 History multivitamin 1 tab PO DAILY 08/19/24 08/19/24 History tramadol 50 mg tablet 50 mg PO Q6H PRN Pain, Severe 08/19/24 08/19/24 History Patient History Medical History (Updated 08/25/24 @ 12:05 by Melody Reyes PA-C) DM II (diabetes mellitus, type II), controlled (HFpEF) heart failure with preserved ejection fraction Valvular heart disease 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 Afib chronic; on warfarin Surgical History Cataract Family History Sister Family history of cancer Grandmother Family history of leukemia Social History Smoking Status: Never smoker Second Hand Exposure: No; Do You Dip or Chew Tobacco: No; Hx Alcohol Use: No Hx Substance Use: No Preferred Language: Ukrainian Communication Ability: Effective 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: No Beliefs That Will Affect Care: None Current Living Situation: Spouse Other Information That Helps Us Care for You: No Feels Safe at Home: Yes Safety Concerns: Feels Safe At This Time Assistive Devices: Glasses, Stair Lift, Walker and Wheelchair Physical Exam Vital Signs (Past 24 Hours): Last Vital Signs Temp 36.4 C L 08/27/24 07:03 Pulse 60 08/27/24 07:03 Resp 16 08/27/24 07:03 BP 132/78 08/27/24 07:03 Pulse Ox 95 08/27/24 07:03 O2 Del Method Room Air 08/27/24 08:00 Results & Data (PSY) Medications Administered Acetaminophen (Acetaminophen 325 Mg Tab) 650 mg PO Q4H PRN PRN Reason: pain/fever Stop: 09/17/24 18:14 Last Admin: 08/22/24 15:19 Dose: 650 mg Documented By: Admin: 08/20/24 00:01 Dose: 650 mg Documented By: SPRING Calcium/Vitamin D (Calcium 600mg + Vit D 400 Iu Tab) 1 tab PO BID KACIE Stop: 09/24/24 20:59 Last Admin: 08/27/24 08:05 Dose: 1 tab Documented By: Admin: 08/26/24 20:08 Dose: 1 tab Documented By: Admin: 08/26/24 09:09 Dose: 1 tab Documented By: Admin: 08/25/24 21:04 Dose: 1 tab Documented By: TAMMI Lactobacillus Acidophilus (Advanced Probiotic 625 Mg Capsule) 1,250 mg PO DAILY KACIE Stop: 09/21/24 11:14 Last Admin: 08/27/24 08:04 Dose: 1,250 mg Documented By: Admin: 08/26/24 09:10 Dose: 1,250 mg Documented By: Admin: 08/25/24 09:02 Dose: 1,250 mg Documented By: Admin: 08/24/24 08:50 Dose: 1,250 mg Documented By: Admin: 08/23/24 07:59 Dose: 1,250 mg Documented By: Admin: 08/22/24 12:30 Dose: 1,250 mg Documented By: SAUD Melatonin (Melatonin 3 Mg Tab) 3 mg PO HS KACIE Stop: 09/21/24 20:59 Last Admin: 08/26/24 20:08 Dose: 3 mg Documented By: Admin: 08/25/24 21:02 Dose: 3 mg Documented By: Admin: 08/24/24 22:43 Dose: 3 mg Documented By: Admin: 08/23/24 20:46 Dose: 3 mg Documented By: Admin: 08/22/24 22:06 Dose: Not Given Documented By: RITA Metoprolol Succinate (Metoprolol Succ 25mg Ext Rel Tab) [facility] Stop: 09/18/24 08:59 Last Admin: 08/27/24 08:05 Dose: 12.5 mg Documented By: Admin: 08/26/24 09:10 Dose: 12.5 mg Documented By: Admin: 08/25/24 09:02 Dose: 12.5 mg Documented By: Admin: 08/24/24 08:50 Dose: 12.5 mg Documented By: Admin: 08/23/24 07:59 Dose: 12.5 mg Documented By: Admin: 08/22/24 08:45 Dose: 12.5 mg Documented By: Admin: 08/21/24 09:36 Dose: 12.5 mg Documented By: Admin: 08/20/24 07:50 Dose: 12.5 mg Documented By: Admin: 08/19/24 08:20 Dose: 12.5 mg Documented By: DENIS Pantoprazole Sodium (Pantoprazole 40 Mg Tab) 40 mg PO [facility] Stop: 09/18/24 08:59 Last Admin: 08/27/24 08:05 Dose: 40 mg Documented By: Admin: 08/26/24 09:10 Dose: 40 mg Documented By: Admin: 08/25/24 09:02 Dose: 40 mg Documented By: Admin: 08/24/24 08:51 Dose: 40 mg Documented By: Admin: 08/23/24 07:59 Dose: 40 mg Documented By: Admin: 08/22/24 08:45 Dose: 40 mg Documented By: Admin: 08/21/24 09:37 Dose: 40 mg Documented By: Admin: 08/20/24 07:50 Dose: 40 mg Documented By: Admin: 08/19/24 08:21 Dose: 40 mg Documented By: DENIS Polyethylene Glycol (Polyethylene (Miralax) 17 Gm Pack) 17 gm PO DAILY PRN PRN Reason: Constipation Stop: 09/17/24 18:14 Last Admin: 08/20/24 17:25 Dose: 17 gm Documented By: DENIS Ropinirole HCl (Ropinirole Hcl 0.25 Mg Tablet) 0.25 mg PO BID [facility] Stop: 09/17/24 20:59 Last Admin: 08/27/24 08:05 Dose: 0.25 mg Documented By: Admin: 08/26/24 20:08 Dose: 0.25 mg Documented By: Admin: 08/26/24 09:09 Dose: 0.25 mg Documented By: Admin: 08/25/24 21:02 Dose: 0.25 mg Documented By: Admin: 08/25/24 09:02 Dose: 0.25 mg Documented By: Admin: 08/24/24 22:43 Dose: 0.25 mg Documented By: Admin: 08/24/24 08:50 Dose: 0.25 mg Documented By: Admin: 08/23/24 20:46 Dose: 0.25 mg Documented By: Admin: 08/23/24 07:59 Dose: 0.25 mg Documented By: Admin: 08/22/24 22:07 Dose: 0.25 mg Documented By: Admin: 08/22/24 08:45 Dose: 0.25 mg Documented By: Admin: 08/21/24 21:58 Dose: 0.25 mg Documented By: Admin: 08/21/24 09:36 Dose: 0.25 mg Documented By: Admin: 08/20/24 19:52 Dose: 0.25 mg Documented By: Admin: 08/20/24 07:50 Dose: 0.25 mg Documented By: Admin: 08/19/24 20:07 Dose: 0.25 mg Documented By: Admin: 08/19/24 08:21 Dose: 0.25 mg Documented By: Admin: 08/18/24 21:33 Dose: 0.25 mg Documented By: VICKY Sennosides (Senna 8.6 Mg Tab) 8.6 mg PO DAILY PRN PRN Reason: Constipation Stop: 09/17/24 18:14 Last Admin: 08/20/24 17:25 Dose: 8.6 mg Documented By: DENIS Sertraline HCl (Sertraline Hcl 50 Mg Tablet) 50 mg PO QAM KACIE Stop: 09/18/24 08:59 Last Admin: 08/27/24 08:05 Dose: 50 mg Documented By: Admin: 08/26/24 09:10 Dose: 50 mg Documented By: Admin: 08/25/24 09:02 Dose: 50 mg Documented By: Admin: 08/24/24 08:51 Dose: 50 mg Documented By: Admin: 08/23/24 07:59 Dose: 50 mg Documented By: Admin: 08/22/24 08:46 Dose: 50 mg Documented By: Admin: 08/21/24 09:36 Dose: 50 mg Documented By: Admin: 08/20/24 07:50 Dose: 50 mg Documented By: Admin: 08/19/24 08:21 Dose: 50 mg Documented By: YVES Spironolactone (Spironolactone 25 Mg Tab) 25 mg PO MoWeFr@0900 [facility] Stop: 09/18/24 08:59 Last Admin: 08/26/24 09:09 Dose: 25 mg Documented By: Admin: 08/21/24 11:24 Dose: 25 mg Documented By: Admin: 08/19/24 08:20 Dose: 25 mg Documented By: YVES Coding Level of Care Code 23430 IN/OBS CONSULT LVL 3,45M Diagnoses Acute metabolic encephalopathy G93.41
[2024-08-27] MEDS: WARFARIN SOD 4 MG TAB PO SCH (15:51)
[2024-08-28 10:50] LABS: Prothrombin Time 20.2 Seconds (9.0-12.0)
--- NOTE | 2024-08-28 14:11 | Hospitalist Progress Note ---
Date of Service August 28, 2024 Assessment & Plan (1) Acute metabolic encephalopathy: (2) Decreased urine output: (3) Mild dehydration: (4) Left lower lobe pneumonia: (5) Rhinovirus infection: (6) Dysphagia: (7) Ambulatory dysfunction: Plan Zulma Villar is an 88y/o F with PMHx significant for afib on Coumadin, tachy- nikki syndrome s/p pacemaker placement, labile HTN, DMII, history of IPMN, HFpEF [EF=59%, 2019], atherosclerosis of aorta, ambulatory dysfunction and other medical problems listed below who presented to the ED from home on 08/18/2024 with worsening weakness and was found to have a possible UTI, LLL PNA and entero-/rhinovirus. Acute Metabolic Encephalopathy - IMPROVING: Delirium 2/2 infection vs. superimposed on suspected underlying dementiaCT head w/o any acute intracranial abnormalities. Blood cultures (-). H/O intermittent confusion/bad dreams x several years; new intermittent hallucinations x 1 month now. Vit D, TSH, B12 normal. May be more drowsy since yesterday; but answering yes/no questions and following simple commands. Continue w/ delirium measures/ including raising blinds during the day/closing at night, frequent re-orientation. Trial of melatonin ordered per Nacho's request; would like to avoid overly- sedating sleeping meds in order to prevent any worsening delirium. Receptive to Psych consult for behavioral disturbance related to dementia. Psych saw patient today; recommended using Seroquel if behavioral disturbance worsens or olanzapine for behavioral emergency; updated patients son, Nacho over the phone on 08/27. Possibly Requip could be contributing to ams. After review of medication, this was started in November 2023; per review of EMR Link; will hold for now and see if any difference in her mental status. Would benefit from MMSE to determine how advanced her dementia is. Afib on Coumadin: Subtherapeutic INR: Continue Toprol; INR 2.0; Recheck INR in AM. (Goal 2-3) Give COumadin 3 mg today. Patient follows w/ [facility]. Previous Coumadin dosing prior to admission --> 4mg every Mon/Fri; 2mg all other days. Decreased Urine Output, Suspect Mild Dehydration -IMPROVED: Decreased urine output noted on 08/24. Bladder scan unremarkable at that time. suspect dehydration 2/2 decreased po intake ISO suspected dementia. S/p 1L NSS on 08/24; BUN improved. Urine personal coach in appearance today. Patient is more alert as well. Can resume spironolactone tomorrow. No PVR on repeat bladder scans. Continue to encourage/reinforce. Monitor I&Os. Possible UTI - Suspect Asymptomatic Bacteriuria: UA on admission w/ 4+ bacteria. Was on empiric IV Rocephin for UTI concerns ISO acute CAP as outlined below. Urine culture w/ <50k CFU/mL Gardnerella vaginalis, no sensitivities to follow. No indication to treat; Rocephin completed for PNA tx as per below. LLL PNA - Suspect Possible Aspiration Component Entero-/Rhinovirus Positive on Respiratory BioFire Panel: CXR on presentation --> 2.5cm LLL retrocardiac opacity c/f PNA vs atelectasis. Suspect possible aspiration component as patient has been experiencing worsening dysphagia as mentioned below. Positive for entero-/rhinovirus on BioFire respiratory panel. Procalcitonin WNL. Completed tx with IV Rocephin + po doxycycline x 5 days [EOT was 08/23]. Can continue probiotic, pulmonary hygiene/toileting. Per radiology --> recommend PA and lateral chest radiographs in 1 month to ensure resolution and exclude the possibility of a pulmonary nodule. Chronic Dysphagia: Mentioned by patient, family - has been ongoing x several years, however seems worse in the past few weeks prior to admission. GI consulted. Patient unable to have barium swallow due to inability to stand unassisted. GI was going to attempt EGD, however patient's son/POA (Nacho) and decided against EGD on 08/21. ST eval--> Easy to chew diet with thin liquids; recommended barium swallow to address esophageal function but patient unable to tolerate this procedure. Ambulatory Dysfunction: Ambulates with walker at baseline but has been profoundly weak as of recently. Patient with poor PT/OT tolerance. PT/OT recommending SNF placement. Continue fall precautions. Chronic HFpEF: TTE 05/2020 --> LVEF = 59%, biatrial dilatation, moderately elevated RV systolic pressure. Daily weights, strict I&Os. Low sodium diet. No acute decompensation. PRN Lasix has been on hold. Can resume spironolactone tomorrow 08/27; euvolemic on exam - no indication for urgent diuresis at this time. Hypocalcemia: Noted on recent labs, will start on a calcium supplement and continue to monitor. DM Type II: Hgb A1c 5.6% in 04/2024. Diet-controlled. Monitor BSG; no indication for SSI coverage at this time given age. Goals of Care - Formerly on Hospice, Now Revoked: Patient was previously on [facility]; appears she was placed on hospice initially on 06/29/2024 secondary to decline in her overall health over the course of 6 months. The goal of hospice was to provide her with an additional layer of support in her care team as well as help her to reach her goals of care at home. Patient revoked her hospice status as of 08/17/2024 per her Epic records . Seems goals and parameters of hospice care were not well understood by the patient and her family; family was dissatisfied with her care and did not understand that she would not be receiving active treatment/labs while on hospice. Patient desires treatment with ABX and IVF. Would not want to pursue a feeding tube should that ever be recommended. Have been in daily contact with the patient's son/POA, Nacho [ ]. He mentions that the ultimate goal is to get her rehabilitated at a SNF prior to being transitioned back home, hopefully with [facility] at Home services. Of note, patient does have 25/02 caregiver support at home through outside services - Nacho unsure of exact companies although there are 2 different ones who provide services. Confirmed with Nacho that she desires to be a FULL CODE. Will continue to provide Nacho with daily updates, he is currently in [place] for work. When I spoke to him on 08/26, [place] the airport. [facility] for symptom management of behavioral distrubance related to dementia. 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 Code Status: FULL CODE - As per above. PCP: Amor Pate MD Disposition: Patient medically stable for discharge when placement becomes available.Anticipating weekend discharge to [facility] I spent a total of 48 minutes coordinating, documenting, and providing care for this patient excluding time spent in the performance of separately billed services and time spent by another provider/QHP. This included personally reviewing all current laboratories and imaging studies, medical reconciliation, outpatient chart review and discussion with specialists. This chart was completed in part utilizing Speech Voice Recognition Software. Grammatical errors, random word insertions, pronoun errors, and incomplete sentences are an occasional consequence of this system due to software limitations, ambient noise, and hardware issues. Any formal questions or concerns about the content, text, or information contained within the body of this dictation should be directly addressed to the provider for clarification. Admission and Anticipated Discharge Date Admission Date: August 18, 2024 Supervising Physician Co-Signing Physician Notes Attending Addendum: Case reviewed with the advanced practitioner. I have reviewed the advanced practitioner's documentation on the date of service referenced in note, and I agree with, and take responsibility for the plan of care. please refer to her notes for full details patient seen and examined, records reviewed by myself as well diagnoses and plan of care as per advanced practitioner's notes Cristiano Ortega MD I spent a total of 20 minutes coordinating, documenting and providing care for this patient excluding time spent in the performance of separately billed services or time spent by another provider/QHP. Subjective Patient seen and examined at bedside this morning in room E315-1. Pt sleepy when I was in the room but responded to verbal stimuli and was focal. She was AAOx2 and able to answer simple yes/no questions. She followed commands appropriately. Per nursing, AM is her most calm/oriented time of day. Able to respond to ROS; denies chest pain, SOB. She said that she was 'sleeping' and "you woke me up' I spoke with Nacho on the phone to provide an update. Seems to be tolerating the Melatonin well. Discussed stopping the Requip to determine if that assists with mental status clearning. Per psych, Ropinirole can make hallucinations worse. Nacho did not think that the Requip was doing much for her. This medication was started in November 2023 per review outpatient records. Medically stable for discharge when placement is available; LUCIA working on [facility] SNF placement. Review of Systems Review of Systems: Neuro: (-) Falls, trauma, slurred speech HEENT: (-) WILSON, dizziness, dysphagia, visual or auditory changes CV: (-) CP, palpitations, swelling Resp: (-) SOB GI: (-) appetite changes, N/V/D, bowel changes : (-) urinary changes Skin: (-) rashes Psych: Unable to assess Physical Exam Physical Exam: Neuro: AAOx2, PERRLA, no aphagia, memory changes, CNII-XII grossly intact HEENT: head normocephalic, moist mucus membranes CV: S1/S2, (-) M/G/R, (-) edema, cap refill < 3 seconds Resp: Lungs CTA in all hines. On RA GI: Abdomen S/NT/ND, Ax4 bowel sounds, (-) CVA tenderness Musculoskeletal: 5/5 B/L UE strength, 5/5 B/L LE strength. Has bilateral hand and feet contractures. Skin: (-) rashes , (-) erythema. Psych: euthymic mood Results & Data Results & Data Vital Signs (Past 12 Hours) Vital Signs Temp Pulse Resp BP Pulse Ox O2 Del Method 08/28/24 07:22 37.1 C 60 16 137/76 97 Room Air (4) Left lower lobe pneumonia Pneumonia type: due to unspecified organism Qualified Code(s): J18.9 - Pneumonia, unspecified organism (6) Dysphagia Dysphagia type: unspecified Qualified Code(s): R13.10 - Dysphagia, unspecified
[2024-08-28] MEDS: WARFARIN SOD 3 MG TAB PO SCH (16:37)
[2024-08-29 07:28] LABS: INR 2.2 (0.9-1.1); Prothrombin Time 21.9 Seconds (9.0-12.0)
--- NOTE | 2024-08-29 07:48 | Hospitalist Progress Note ---
Date of Service August 29, 2024 Assessment & Plan (1) Acute metabolic encephalopathy: (2) Decreased urine output: (3) Mild dehydration: (4) Left lower lobe pneumonia: (5) Rhinovirus infection: (6) Dysphagia: (7) Ambulatory dysfunction: Plan Zluma Villar is an 88y/o F with PMHx significant for afib on Coumadin, tachy- nikki syndrome s/p pacemaker placement, labile HTN, DMII, history of IPMN, HFpEF [EF=59%, 2019], atherosclerosis of aorta, ambulatory dysfunction and other medical problems listed below who presented to the ED from home on 08/18/2024 with worsening weakness and was found to have a possible UTI, LLL PNA and entero-/rhinovirus. Acute Metabolic Encephalopathy - IMPROVING: Delirium 2/2 infection vs. superimposed on suspected underlying dementiaCT head w/o any acute intracranial abnormalities. Blood cultures (-). H/O intermittent confusion/bad dreams x several years; new intermittent hallucinations x 1 month now. Vit D, TSH, B12 normal. May be more drowsy since yesterday; but answering yes/no questions and following simple commands. Continue w/ delirium measures/ including raising blinds during the day/closing at night, frequent re-orientation. Trial of melatonin ordered per Nacho's request; would like to avoid overly- sedating sleeping meds in order to prevent any worsening delirium. Receptive to Psych consult for behavioral disturbance related to dementia. Psych saw patient today; recommended using Seroquel if behavioral disturbance worsens or olanzapine for behavioral emergency; updated patients son, Nacho over the phone on 08/27. Possibly Requip could be contributing to ams. After review of medication, this was started in November 2023; per review of EMR Link; will hold for now and see if any difference in her mental status. Would benefit from MMSE to determine how advanced her dementia is. Afib on Coumadin: Subtherapeutic INR: Continue Toprol; INR 2.2; Recheck INR in AM. (Goal 2-3) Give Coumadin 3 mg today. Patient follows w/ [facility]. Previous Coumadin dosing prior to admission --> 4mg every Mon/Fri; 2mg all other days. Decreased Urine Output, Suspect Mild Dehydration -IMPROVED: Decreased urine output noted on 08/24. Bladder scan unremarkable at that time. suspect dehydration 2/2 decreased po intake ISO suspected dementia. No PVR on repeat bladder scans. Continue to encourage/reinforce. Monitor I&Os. Possible UTI - Suspect Asymptomatic Bacteriuria: UA on admission w/ 4+ bacteria. Was on empiric IV Rocephin for UTI concerns ISO acute CAP as outlined below. Urine culture w/ <50k CFU/mL Gardnerella vaginalis, no sensitivities to follow. No indication to treat; Rocephin completed for PNA tx as per below. LLL PNA - Suspect Possible Aspiration Component Entero-/Rhinovirus Positive on Respiratory BioFire Panel: CXR on presentation --> 2.5cm LLL retrocardiac opacity c/f PNA vs atelectasis. Suspect possible aspiration component as patient has been experiencing worsening dysphagia as mentioned below. Positive for entero-/rhinovirus on BioFire respiratory panel. Procalcitonin WNL. Completed tx with IV Rocephin + po doxycycline x 5 days [EOT was 08/23]. Can continue probiotic, pulmonary hygiene/toileting. Per radiology --> recommend PA and lateral chest radiographs in 1 month to ensure resolution and exclude the possibility of a pulmonary nodule. Chronic Dysphagia: Mentioned by patient, family - has been ongoing x several years, however seems worse in the past few weeks prior to admission. GI consulted. Patient unable to have barium swallow due to inability to stand unassisted. GI was going to attempt EGD, however patient's son/POA (Nacho) and decided against EGD on 08/21. ST eval--> Easy to chew diet with thin liquids; recommended barium swallow to address esophageal function but patient unable to tolerate this procedure. Ambulatory Dysfunction: Ambulates with walker at baseline but has been profoundly weak as of recently. Patient with poor PT/OT tolerance. PT/OT recommending SNF placement. Continue fall precautions. Takes Requip for essential tremor; this has been on hold after recc by Psych. Discussed with pt son Chronic HFpEF: TTE 05/2020 --> LVEF = 59%, biatrial dilatation, moderately elevated RV systolic pressure. Daily weights, strict I&Os. Low sodium diet. No acute decompensation. PRN Lasix has been on hold.euvolemic on exam - no indication for urgent diuresis at this time. Hypocalcemia: Noted on recent labs, will start on a calcium supplement and continue to monitor. DM Type II: Hgb A1c 5.6% in 04/2024. Diet-controlled. Monitor BSG; no indication for SSI coverage at this time given age. Goals of Care - Formerly on Hospice, Now Revoked: Patient was previously on [facility]; appears she was placed on hospice initially on 06/29/2024 secondary to decline in her overall health over the course of 6 months. The goal of hospice was to provide her with an additional layer of support in her care team as well as help her to reach her goals of care at home. Patient revoked her hospice status as of 08/17/2024 per her Epic records . Seems goals and parameters of hospice care were not well understood by the patient and her family; family was dissatisfied with her care and did not understand that she would not be receiving active treatment/labs while on hospice. Patient desires treatment with ABX and IVF. Would not want to pursue a feeding tube should that ever be recommended. Have been in daily contact with the patient's son/POA, Nacho [ ]. He mentions that the ultimate goal is to get her rehabilitated at a SNF prior to being transitioned back home, hopefully with [facility] Home services. Of note, patient does have 25/02 caregiver support at home through outside services - Nacho unsure of exact companies although there are 2 different ones who provide services. Confirmed with Nacho that she desires to be a FULL CODE. Will continue to provide Nacho with daily updates, he is currently in [place] for work. When I spoke to him on 08/26, [place] at the airport. He is receptive of getting geripsych involved for symptom management of behavioral distrubance related to dementia. See Psych note from 08/27. Per review of their note, the requip has be en on hold. Her cognition has improved. 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 Code Status: FULL CODE - As per above. PCP: Amor Pate MD Disposition: Patient medically stable for discharge when placement becomes available.Anticipating weekend discharge to [facility] I spent a total of 47 minutes coordinating, documenting, and providing care for this patient excluding time spent in the performance of separately billed services and time spent by another provider/QHP. This included personally re viewing all current laboratories and imaging studies, medical reconciliation, outpatient chart review and discussion with specialists. This chart was completed in part utilizing Speech Voice Recognition Software. Grammatical errors, random word insertions, pronoun errors, and incomplete sentences are an occasional consequence of this system due to software limitations, ambient noise, and hardware issues. Any formal questions or concerns about the content, text, or information contained within the body of this dictation should be directly addressed to the provider for clarification. Admission and Anticipated Discharge Date Admission Date: August 18, 2024 Supervising Physician Co-Signing Physician Notes Attending Addendum: Case reviewed with the advanced practitioner. I have reviewed the advanced practitioner's documentation on the date of service referenced in note, and I agree with, and take responsibility for the plan of care. please refer to her notes for full details diagnoses and plan of care as per advanced practitioner's notes Cristiano Ortega MD Subjective Patient seen and examined at bedside this morning in room E315-1. Pt was AAOx2 and able to answer simple yes/no questions. She followed commands appropriately, she was more interactive today than she has been most days Patient without behavioral disturbance for numerous days. Able to respond to ROS; denies chest pain, SOB. I called Nacho on the phone to provide an update but left a VM on an automated voicemail. Seems to be tolerating the Melatonin well. Requip has been put on hold Medically stable for discharge when placement is available; CM working on [facility] SNF placement. Review of Systems Review of Systems: Neuro: (-) Falls, trauma, slurred speech HEENT: (-) WILSON, dizziness, dysphagia, visual or auditory changes CV: (-) CP, palpitations, swelling Resp: (-) SOB GI: (-) appetite changes, N/V/D, bowel changes : (-) urinary changes Skin: (-) rashes Psych: Unable to assess Physical Exam Physical Exam: Neuro: AAOx2, PERRLA, no aphagia, memory changes, CNII-XII grossly intact HEENT: head normocephalic, moist mucus membranes CV: S1/S2, (-) M/G/R, (-) edema, cap refill < 3 seconds Resp: Lungs CTA in all hines. On RA GI: Abdomen S/NT/ND, Ax4 bowel sounds, (-) CVA tenderness : Purewick in place Musculoskeletal: 5/5 B/L UE strength, 5/5 B/L LE strength. Has bilateral hand and feet contractures. Skin: (-) rashes , (-) erythema. Psych: euthymic mood Results & Data Results & Data Vital Signs (Past 12 Hours) Vital Signs Temp Pulse Resp BP Pulse Ox O2 Del Method 08/28/24 20:00 36.8 C 60 16 109/65 92 Room Air (4) Left lower lobe pneumonia Pneumonia type: due to unspecified organism Qualified Code(s): J18.9 - Pneumonia, unspecified organism (6) Dysphagia Dysphagia type: unspecified Qualified Code(s): R13.10 - Dysphagia, unspecified
[2024-08-29 15:27] VITALS: PULSE 60
[2024-08-30 06:31] LABS: BUN Creatinine Ratio 38.6 (10-20); Calcium 9.3 mg/dl (8.6-10.3); Creatinine Clr Calc Pharmacy 45.8 ml/min; Potassium 4.5 mmol/L (3.5-5.1)
[2024-08-30 06:32] LABS: INR 2.1 (0.9-1.1)
[2024-08-30 07:27] VITALS: BP 135/77; RESP 14; TEMP 98.1; O2SAT 94
--- NOTE | 2024-08-30 12:11 | Discharge Summary ---
Date of Service August 30, 2024 Admission HPI Per Admitting Provider This is an 88-year-old female with PMH of atrial fibrillation on coumadin, tachybradycardia syndrome s/p pacemaker, labile HTN, type 2 diabetes, history of IPMN, HFpEF (EF:59% 2019), atherosclerosis of aorta, ambulatory dysfunction and other medical problems listed below who presents from home with worsening weakness. Patent lives at home with 24 hour caregivers. Has been on hospice for the last few months but family has been dissatisfied with her care and did not understand she would not be getting treatment or labs or regularly seeing a doctor while on hospice. Was seen by heme/onc provider yesterday, Dr. Monk, and due to AMS over the past few days, along with weakness encouraged family to come to ED for further evaluation. Revoked hospice status yesterday. Patient is A&Ox3 during interview and states DOES want to receive treatment in the hospital and clarified she does not want to be on hospice any longer. Wants to try PT/OT to get stronger again. History primarily obtained from son Nacho at bedside as well as patient. She has been weaker for the past 3 days and unable to get up today even with help. Also endorses dysuria. Son adds that she has been having intermittent visual hallucinations over the past few days but wonders if that is because she isn't sleeping well. At baseline patient transfers with help of aide and ambulates with a walker. Unsure of all medications but knows she is taking coumadin, metoprolol, pantoprazole and lasix PRN for leg swelling. No F/C, lightheadedness, CP, SOB, N/V, abd pain, diarrhea or constipation. Admission Exam Per Admitting Provider General Appearance: WD/WN, vitals as above, NAD, sitting up in bed, pleasant, appears ill Head: normocephalic, atraumatic Eyes: normal inspection, PERRL, conjunctivae normal, anicteric sclerae ENT: external ear and nose normal, oropharynx with dry mucous membranes Neck: normal visual inspection Respiratory: normal respiratory effort, bibasilar rales L>R Cardiovascular: regular rate, rhythm, normal peripheral pulses, 1+ BLE edema Chest: normal inspection of chest Abdomen/GI: normal bowel sounds, soft, nontender, no hepatosplenomegaly Extremities/Musculoskeletal: no cyanosis or clubbing, extremities motor strength 5/5, scattered ecchymosis Neurologic: PERRL, EOMI, accommodation nl, no face palsy, no dysarthria, CN's II-XI intact bilaterally and moves all extremities Psychiatric: A+Ox3 Skin: no rashes, normal color, warm/dry Principal Diagnosis generalized weakness Discharge Exam Neuro: AAOx4, PERRLA, no aphagia, memory changes, CNII-XII grossly intact HEENT: head normocephalic, moist mucus membranes CV: S1/S2, (-) M/G/R, (-) edema, cap refill < 3 seconds Resp: Lungs CTA in all hines. On RA GI: Abdomen S/NT/ND, Ax4 bowel sounds, (-) CVA tenderness Musculoskeletal: 5/5 B/L UE strength, 5/5 B/L LE strength. Uses a walker at baseline Skin: (-) rashes , (-) erythema. Psych: euthymic mood Discharge Data Allergies Allergy/AdvReac Type Severity Reaction Status Date / Time No Known Allergies Allergy Verified 08/18/24 18:24 Consultations 08/18/24 14:18 ED Decision to Admit Stat 08/18/24 15:42 Consult Gastroenterology Routine Procedures Performed Operation Date: 08/21/24 16:30 <No data on this case meets the specified criteria> Ordered Studies 1. CXR 08/18:FINDINGS: Left subclavian pacer lead is coiled. Moderate cardiomegaly is unchanged. There is pulmonary vascular congestion without overt pulmonary edema. 2.5 cm left lower lung retrocardiac opacity is present. There is no pneumothorax or pleural effusion. Lung volumes are mildly diminished.IMPRESSION: 1. Cardiomegaly with pulmonary vascular congestion. 2. 2.5 cm left lower lung retrocardiac opacity. This could represent atelectasis or a small focus of pneumonia. PA and lateral chest radiographs in one month are recommended to ensure resolution and exclude the possibility of a pulmonary nodule. 2. Head CT 08/18: FINDINGS: No acute intracranial hemorrhage, midline shift, intracranial mass, hydrocephalus, territorial ischemia or abnormal extra- axial collection. Involutional changes with white matter hyperintensities suggestive of chronic microvascular ischemic disease. The calvarium is intact. The paranasal sinuses, mastoid air cells, and middle ear cavities are clear.IMPRESSION: No acute intracranial abnormality. 3. Knee x-ray: 08/18: FINDINGS: Arterial calcifications. Partially imaged intramedullary gal of the distal femur. Tricompartment osteoarthritis of the knee, moderate in the medial patellofemoral compartments and severe within the lateral compartment. Intramedial soft tissue swelling with small joint effusion. IMPRESSION: No acute fracture or dislocation. Hospital Course (1) Mild dehydration: (2) Left lower lobe pneumonia: (3) Ambulatory dysfunction: (4) Pacemaker: (5) Hypertension: (6) Hyperlipidemia: Plan Zulma Schafer was admitted to the [facility] on August 18, 2024 from home with worsening weakness and was found to have a possible UTI, LLL PNA, and rhinovirus/enterovirus. During the initial phases of her admission she was found to have altered mental status which was determined likely to be related to her infection. As outlined above, she underwent a head CT scan without and acute abnormalities. Additional PMH includes: atrial fibrillation on coumadin, tachybradycardia syndrome s/p pacemaker, labile HTN, type 2 diabetes, history of IPMN, HFpEF (EF:59% 2019), atherosclerosis of aorta, ambulatory dysfunction She was treated for pneumonia with completing her treatment on August 23. On her CXR as outlined above, there was consideration of a pulmonary nodule and it was recommended to have a PA and lateral chest radiographs in 1 month to ensure resolution and exclude possibility of pulmonary nodule At one point towards the end of her hospital stay she was subtherapeuric with her INR; 1.8-1.9; her range is 2-3. At discharge, she was therapeutic. There was a consultation with Psychiatry to assist with geriatric psych medication use recommendations as Ms. Schafer had some behavioral disturbance and sundowning symptoms. She was started on Requip in November 2023 which can lead to hallucinations, which she was experiencing. This was placed on hold on 08/27. A few months prior to this admission she was enrolled in hospice services for overall general decline; I am unclear what her actual hospice diagnosis was. The patients son, Nacho, is heavily involved and hospice was revoked a few days prior to coming to the hospital. At this time, Nacho wishes to continue with aggressive treatment for Ms. Schafer and she will remain a Full Code when she is discharged from the hospital. Ms. Schafer has been examined day of discharge and is deemed stable for transfer. MS. SCHAFER RECEIVED HER COUMADIN TODAY 08/30. NEEDS INR RECHECK Friday 09/01. 1.) Warfarin dosing now changed to 4mg DAILY. MS. SCHAFER RECEIVED HER COUMADIN TODAY 08/30. NEEDS INR RECHECK Friday 09/01. Prior to coming to the hospital her regimen was 4mg every Saturday/Saturday, 2mg all other days. Total Time Total Time Spent Total Time Spent (In Minutes): I spent a total of 46 minutes coordinating, documenting, and providing care for this patient excluding time spent inthe performance of separately billed services or time spent by another provider/QHP. Discharge Plan Discharge Items Patient Disposition: Transfer Half-Way Fac Reason For Visit: UTI,PNA,GENERALIZED WEAKNESS Discharge Diagnosis: (1) Acute metabolic encephalopathy (2) Decreased urine output (3) Mild dehydration (4) Left lower lobe pneumonia (5) Rhinovirus infection (6) Dysphagia (7) Ambulatory dysfunction Condition on Discharge: Good Activity: Resume your previous activity Non-emergency contact: Primary Care Provider Call non-emergency contact if: you have any medication questions and your symptoms worsen Follow-up/Referrals: Amor Pate MD [Primary Care Provider] - Diet: Carb Consistent or DM2 and Low Sodium (2gm) Diet Texture: Easy to Chew Addtl Attending Provider Instructions: Ms. Schafer, you were admitted to [facility] with worsening weakness and were found to have rhinovirus as well as pneumonia (also known as a lung infection). You completed a full course of antibiotics for the treatment of your pneumonia. You have been started on daily melatonin supplement to take every night before bed in order to help with your sleeping issues. Melatonin supplements can help individuals fall asleep more easily and improve the quality of sleep. You are being discharged to [facility] for rehabilitation services. You will have a primary care provider (PCP) hospital discharge follow-up appointment arranged at . Please make sure you attend this appointment! It would be significantly beneficial for you to have home physical/occupational therapy as well as nursing care arranged with [facility] for when you are stable for discharge back home from [facility]. These services are used in conjunction with your 25/02 private caregiver support. You will need repeat chest imaging in about 1 month to ensure resolution of your pneumonia. This can be arranged by your PCP as well. You will also need to have your INR monitored closely to ensure appropriate warfarin (Coumadin) dosing. You are being discharged on 4mg warfarin (Coumadin) to take ONCE daily MS. SCHAFER RECEIVED HER COUMADIN TODAY 08/30. NEEDS INR RECHECK Friday 09/01. Dr. James office will contact you on Thursday 08/31 to arrange a follow up appointment with you. MEDICATION CHANGES: 1.) Warfarin dosing now changed to 4mg DAILY. MS. SCHAFER RECEIVED HER COUMADIN TODAY 08/30. NEEDS INR RECHECK Friday 09/01. Prior to coming to the hospital her regimen was 4mg every Saturday/Saturday, 2mg all other days. 2.) You were started on a melatonin supplement to take DAILY prior to bedtime in order to help you sleep better. 3. Your Requip has been placed on hold since 08/27 which has helped your cognition (mental status) improve. There have been NO other changes to your home medications. You can continue to take your other home medications as they were previously prescribed. You have been examined and deemed fit for discharge from the hospital to continue on your physical therapy journey are rehab! Please take good care of yourself! It has been a pleasure taking care of you. If you have any questions regarding your recent hospitalization please contact [facility] and request [facility] @ [phone]. Pending Studies at Discharge: No Stand-Alone Forms: [facility] Skilled Items Patient informed of condition?: Yes DNR: No Discharge Level of Care: Skilled Communicable Disease: Yes (Positive for rhinovirus on 08/18/2024) Discharge Prognosis: Stable Lines: None Urinary Catheter: No Medications and DC Order Prescriptions: New acetaminophen 325 mg Tablet 650 mg PO Q4H PRN (Reason: pain) Qty: 30 0RF Caltrate 600-D Plus Minerals 600 mg calcium- 800 unit-50 mg Tablet 1 tab PO BID Qty: 30 0RF melatonin 3 mg Tablet 3 mg PO HS Qty: 30 0RF Continued multivitamin Tablet 1 tab PO DAILY Qty: 30 0RF sennosides 8.6 mg Tablet 8.6 mg PO DAILY PRN (Reason: Constipation) Qty: 30 0RF spironolactone 25 mg Tablet 25 mg PO 3XWK Qty: 30 0RF Rx Instructions: Mon-Wed-Fri warfarin 4 mg Tablet 4 mg PO MOFR@1600 Qty: 30 0RF cyanocobalamin (vitamin B-12) 500 mcg Tablet 500 mcg PO 2XWK Qty: 30 0RF warfarin 2 mg tablet 2 mg PO TUWETHSA@1600 Qty: 30 0RF Rx Instructions: Per family, hospice stopped this medication but he believes the pt has started back on it since no longer on hospice, unsure of directions. metoprolol succinate 25 mg Tablet Extended Release 24 Hr 12.5 mg PO QAM Qty: 30 0RF sertraline 50 mg tablet 50 mg PO QAM Qty: 30 0RF folic acid 800 mcg Tablet 0.8 mg PO DAILY Qty: 30 0RF cholecalciferol (vitamin D3) [Vitamin D3] 25 mcg (1,000 unit) Capsule 25 mcg PO DAILY Qty: 30 0RF omeprazole 20 mg Tablet,Delayed Release (Dr/Ec) 20 mg PO QAM Qty: 30 0RF calcium carbonate-vitamin D3 600 mg-10 mcg (400 unit) Capsule 1 cap PO DAILY Qty: 30 0RF Discontinued acetaminophen 325 mg Tablet 650 mg PO Q6H PRN (Reason: Pain/Fever) ropinirole 0.25 mg tablet 0.25 mg PO TID furosemide 20 mg tablet 20 mg PO DAILY PRN (Reason: Edema) tramadol 50 mg tablet 50 mg PO Q6H PRN (Reason: Pain, Severe) Discharge Orders: Discharge Order (Routine); Ordered 08/30/24 Ordered By: Nicki Yap Admission Data Admit Date/Time: 08/18/24 15:20 Attending Provider: Cristiano Ortega Admit Provider: Cristiano Ortega Primary Care Provider: Amor Pate Other Providers: Balwinder Crawford; Zack Castillo; Rashida Jerome; Melva Dawson; Catalina Guido; Luna Buitrago; Abdelrahman Lanza; Cindy Elena; Clifton Zhou; Jorge Thornton; Janeen Plummer; Brigida Gutierres; Gisel Patel; Ermelinda Delgado; Elieser Ridley; Andrew Casillas; Samantha Garay; Arash Giraldo Jr; Anand Devine.; Andres Ochoa; Simon Freeman; Anibal Cartagena; Rosalia Aden; Dedrick Ortega I; Brooke Poon; French Castillo; Cristiano Ortega; Mamie Hawthorne Other Interventions: Discharge Summary Assessment (RN) Last Done: 08/30/24 12:18 Supervising Physician Co-Signing Physician Notes Attending Addendum: Case reviewed with the advanced practitioner. I have reviewed the advanced practitioner's documentation on the date of service referenced in note, and I agree with, and take responsibility for the plan of care. please refer to her notes for full details patient seen and examined, records reviewed by myself as well diagnoses and plan of care as per advanced practitioner's notes I spent a total of 30 minutes coordinating, documenting, and providing care for this patient, excluding time spent in the performance of separately billed services or time spent by another provider/QHP. Cristiano Ortega MD
[2024-08-30] MEDS: WARFARIN SOD 4 MG TAB PO SCH (13:30)
--- NOTE | 2024-09-02 10:40 | Coding Query ---
CODING QUERY To promote full compliance with coding requirements relating to patient care, provider participation is requested in all cases of facing baster jumpbasting uncertainty. Please assist us with the question(s) below: Coding Question(s): Patient record states that patient had LL Pneumonia, POA. Suspect possible aspiration component. Please clarify type below. Physician's Response(s): ( ) Pneumonia Unsp (X ) LLL Pneumonia ( ) Aspiration Pneumonia ( ) Other Thank you Minerva Babin Principal Diagnosis: "that condition established after study, to be chiefly responsible for occasioning the admission of the patient to the hospital for care." Co-Existing Principal Diagnosis: "when two or more diagnoses equally meet the criteria for principal diagnosis as determined by the circumstances of admission, diagnostic work up, and/or therapy provided, and the Alphabetic Index, Tabular List, or another coding guideline does not provide sequencing direction, any one of the diagnoses may be sequenced first." "When the physician has documented what appears to be a current diagnosis in the body of the record, but has not included the diagnosis in the final diagnostic statement, the physician should be asked whether the diagnosis should be added." (Source [facility] 2 QTR90. p3-4) LAINEY
== END 2024-08-30 15:41 | DRG 193 ==
LOC: ED 10:49 → SUATTDRO 15:20 → EDINP 15:20 → 3E 18:16